=== PATIENT | male | born 1975 | race Caucasian/White ===

== ENCOUNTER → 2017-07-08 10:55 | Outpatient (CLI) | payer MEDICAID, SELFPAY ==
[2017-07-08 11:59] LABS: Hemoglobin A1c 10.4 % (4.2-6.3)
[2017-07-08 12:03] LABS: ALB/GLOB Ratio 0.8 RATIO (0.9-2.4); AST(SGOT) 30 U/L (15-37); Alanine Aminotransfer ALT/SGPT 64 U/L (16-61); Albumin, Serum 3.5 g/dL (3.2-5.0); Alkaline Phosphatase 54 U/L (45-117); Anion Gap 5 (5-15); BUN 20 mg/dL (7-18); BUN/Creat Ratio 16.1 RATIO (10-20); Calcium,Total 9.2 mg/dL (8.5-10.1); Chloride 101 mmol/L (98-107); Cholesterol 144 mg/dL (200); Creatinine, Serum 1.24 mg/dL (0.70-1.30); EST Glomerular Filtration Rate 68 mL/min (>60); Est Glom Filt Rate - Afr Amer 82 mL/min (>60); Globulin 4.2 g/dL (2.2-4.2); Glucose 210 mg/dL (74-106); High Density Lipoprotein 38 mg/dL; Potassium 4.3 mmol/L (3.5-5.1); Protein, Total 7.7 g/dL (6.4-8.2); Sodium Level 136 mmol/L (136-145); Triglycerides 130 mg/dL; Very Low Density Lipoprotein 26 mg/dL (5-40)
[2017-07-08 12:13] LABS: Microalbumin:Creatinine Ratio 83.5 mg/g CRE (<30 mg/g CRE)
== END ==
PROVIDERS: Family Provider Internal Medicine; PCP Internal Medicine; Visit Provider Nurse Practitioner
DX: E11.9 Type 2 diabetes mellitus without complications (principal); Z79.4 Long term (current) use of insulin
CPT/HCPCS: 36415; 80053; 80061; 82043; 82570; 83036

== ENCOUNTER → 2017-07-09 16:24 | Outpatient (CLI) | payer MEDICAID, SELFPAY ==
--- NOTE | 2017-07-09 16:26 | US_ITS ---
STUDY: SCROTUM ULTRASOUND REASON FOR EXAM: Male, 41 years old. Right testicle enlargement with pain for one week. TECHNIQUE: Ultrasound evaluation of the scrotum was performed with color Doppler and static nava-scale imaging. COMPARISON: None. FINDINGS: RIGHT TESTICLE INTRATESTICULAR: There is a normal size of the right testicle. The right testicle measures 4.1 x 3.1 x 2.5 cm. There is a homogenous echotexture. There is normal arterial and normal venous vascularity. There is no demonstrated right testicular mass or cyst. EXTRATESTICULAR: The epididymal tail is enlarged and hypervascular. On a single image there is a rounded focus within the epididymal tail which may be artifactual. There is no demonstrated epididymal cystic structure. There is a small hydrocele that is mildly complex. There is no demonstrated varicocele. LEFT TESTICLE INTRATESTICULAR: There is a normal size of the left testicle. The left testicle measures 4.6 x 2.8 x 2.3 cm. There is a homogenous echotexture. There is normal arterial and normal venous vascularity. There is no demonstrated left testicular mass or cyst. EXTRATESTICULAR: The epididymis is normal in size. There is normal vascularity of the epididymis. There is an epididymal cyst which measures 5 x 6 x 5 mm. There is a small hydrocele that is mildly complex. There is no demonstrated varicocele. There is no demonstrated extratesticular mass or cyst. US/Testicular with Arterial Flow IMPRESSION: Right-sided epididymitis. Recommend follow-up ultrasound in 4-6 weeks for on a single image there is a rounded focus within the tail that is likely artifactual however cannot entirely underlying mass. Bilateral mildly small complex hydroceles. Left epididymal cyst. Electronically Signed: Mariposa Lechuga MD at 19:46 EDT Tel , Service support ,
== END ==
PROVIDERS: Family Provider Internal Medicine; PCP Internal Medicine; Visit Provider Nurse Practitioner
DX: N44.00 Torsion of testis, unspecified (principal); N45.1 Epididymitis
CPT/HCPCS: 76870; 93976

== ENCOUNTER → 2017-08-12 15:54 | Outpatient (CLI) | payer OTHER, SELFPAY ==
--- NOTE | 2017-08-12 15:56 | US_ITS ---
STUDY: SCROTUM ULTRASOUND REASON FOR EXAM: Male, 41 years old. Pain TECHNIQUE: Ultrasound evaluation of the scrotum was performed with color Doppler and static nava-scale imaging. COMPARISON: None. FINDINGS: RIGHT TESTICLE INTRATESTICULAR: There is a normal size of the right testicle. The right testicle measures 4.3 x 3.1 x 2.5 cm. There is a homogenous echotexture. There is normal arterial and normal venous vascularity. There is no demonstrated right testicular mass or cyst. EXTRATESTICULAR: The epididymis is normal in size. The epididymis head measures 1.1 cm. The epididymal tail is slightly prominent with increased vascularity. There is normal vascularity of the epididymis. There is are 3 epididymal cysts measuring 4 mm. There is a small hydrocele. There is no demonstrated varicocele. There is no demonstrated extratesticular mass or cyst. LEFT TESTICLE INTRATESTICULAR: There is a normal size of the left testicle. The left testicle measures 4.5 x 3.3 x 2.3 cm. There is a homogenous echotexture. There is normal arterial and normal venous vascularity. There is no demonstrated left testicular mass or cyst. EXTRATESTICULAR: The epididymis is normal in size. The epididymis head measures 0.8 cm. There is normal vascularity of the epididymis. There is a 6 mm cyst. There is no demonstrated hydrocele. There is no demonstrated varicocele. There is no demonstrated extratesticular mass or cyst. US/Testicular with Arterial Flow IMPRESSION: Normal bilateral testicles. Bilateral epididymal cysts. Slightly prominent right epididymal tail with increased vascularity suggestive for epididymitis. Electronically Signed: Hammad Bland DO at 19:39 EDT Tel [phone], Service support ,
== END ==
PROVIDERS: Family Provider Internal Medicine; PCP Internal Medicine; Visit Provider Nurse Practitioner
DX: N44.00 Torsion of testis, unspecified (principal); N43.3 Hydrocele, unspecified; N50.9 Disorder of male genital organs, unspecified
CPT/HCPCS: 76870; 93976

== ENCOUNTER → 2018-03-08 22:11 | Outpatient (CLI) | payer OTHER, SELFPAY ==
[2018-01-07 14:55] VITALS: BMI 36.5
[2018-03-08 22:39] LABS: Absolute Lymphocyte Count 2.25 X10^3/ul (0.83-4.51); Absolute Neutrophil Count 3.8 X10^3/uL (2.0-7.7); Basophil# 0.03 X10^3/uL; Basophil% 0.4 % (0-1); Eosinophil# 0.17 X10^3/uL; Eosinophils% 2.5 % (0-5); Hematocrit 42.9 % (40-54); Hemoglobin 15.6 g/dl (13.0-16.5); Lymphocyte # 2.25 X10^3/ul (4.0); Lymphocyte % 33.5 % (19-41); Mean Corp Hgb Conc 36.4 g/gl (32-36); Mean Corpuscular Hgb 29.4 pg (27.0-32.0); Mean Corpuscular Volume 80.8 fL (80-94); Mean Platelet Vol. 10.6 fl (6.2-12.0); Monocyte# 0.49 X10^3/uL; Monocyte% 7.3 % (0-10); Neutrophil # 3.76 X10^3/uL (2.7-7.7); Neutrophil % 56.2 % (47-70); Platelet Count 244 K/mm3 (150-450); RBC Distribution Width CV 12.3 % (11.6-14.6); RBC Distribution Width SD 36.5 fl (35.1-43.9); Red Blood Count 5.31 M/mm3 (4.6-6.2); White Blood Count 6.7 K/mm3 (4.4-11.0)
[2018-03-08 22:45] LABS: POSITIVE COUNT NO; POSITIVE DIFFERENTIAL NO; POSITIVE MORPHOLOGY NO; Uric Acid 6.5 mg/dL (3.5-7.2)
== END ==
PROVIDERS: Family Provider Internal Medicine; PCP Internal Medicine; Visit Provider Nurse Practitioner
DX: M10.9 Gout, unspecified (principal)
CPT/HCPCS: 84550; 85025

== ENCOUNTER → 2018-04-05 09:36 | Outpatient (CLI) | payer OTHER, SELFPAY ==
[2018-04-05 10:43] LABS: ALB/GLOB Ratio 0.9 RATIO (0.9-2.4); AST(SGOT) 30 U/L (15-37); Alanine Aminotransfer ALT/SGPT 80 U/L (16-61); Albumin, Serum 3.7 g/dL (3.2-5.0); Alkaline Phosphatase 65 U/L (45-117); Anion Gap 6 (5-15); BUN 15 mg/dL (7-18); BUN/Creat Ratio 13.8 RATIO (10-20); Calcium,Total 9.2 mg/dL (8.5-10.1); Chloride 104 mmol/L (98-107); Creatinine, Serum 1.09 mg/dL (0.70-1.30); EST Glomerular Filtration Rate 78 mL/min (>60); Est Glom Filt Rate - Afr Amer 95 mL/min (>60); Globulin 3.9 g/dL (2.2-4.2); Glucose 232 mg/dL (74-106); Potassium 4.3 mmol/L (3.5-5.1); Protein, Total 7.6 g/dL (6.4-8.2); Sodium Level 138 mmol/L (136-145)
[2018-04-05 10:45] LABS: Hemoglobin A1c 9.8 % (4.2-6.3)
[2018-04-05 11:21] LABS: Microalbumin:Creatinine Ratio 350.8 mg/g CRE (<30 mg/g CRE)
[2018-04-07 18:24] LABS: Vitamin D 1,25-Dihydroxy 40.8 pg/mL (19.9-79.3)
--- OUTSIDE RECORDS SUMMARY | 2018-07-07 22:00 | XMS RPT_ITS ---
:1975 Author Organization OHIP Support Name Relationship Address Phone ZIYADKAREN Unavailable [address] [place] + [place] [address] GOOIN Unavailable [address] [phone] [place] [address] KAREN LACKEY Unavailable [address] + [place] [address] GOOIN Unavailable [address] [phone] [place] [address] KAREN LACKEY Unavailable [address] + [place] [address] GOOIN Unavailable [address] [phone] [place] [address] KAREN LACKEY Unavailable [address] + [place] [address] GOOIN Unavailable [address] [phone] [place] [address] KAREN LACKEY Unavailable [address] + [place] [address] GOOIN Unavailable [address] [phone] [place] [address] KAREN LACKEY Unavailable [address] + [place] [address] GOOIN Unavailable [address] [phone] [place] [address] KAREN LACKEY Unavailable [address] + [place] [address] GOOIN Unavailable [address] [phone] [place] [address] KAREN LACKEY Unavailable [address] + [place] [address] GOOIN Unavailable [address] [phone] [place] [address] KAREN LACKEY Unavailable [address] + [place] [address] GOOIN Unavailable [address] [phone] [place] [address] GOOIN Unavailable [address] [phone] [place] [address] Care Team Providers Name Role Phone Kaitlyn Gamble OIL EXTRACTOR-C Attending Unavailable Kaitlyn Gamble OIL EXTRACTOR-C Referring Unavailable [facility], [facility] Unavailable Kaitlyn Gamble OIL EXTRACTOR-C Attending Unavailable [facility], [facility] Referring Unavailable ShoKaitlyn braxton OIL EXTRACTOR-C Attending Unavailable [facility], [facility] Referring Unavailable ShoKaitlyn braxton OIL EXTRACTOR-C Attending Unavailable Kaitlyn Gamble OIL EXTRACTOR-C Referring Unavailable [facility], [facility] Care Unavailable MorseChristi OIL EXTRACTOR-C Attending Unavailable [facility] Care Unavailable MorseChristi OIL EXTRACTOR-C Attending Unavailable [facility] Primary [facility] Unavailable ShoKaitlyn braxton OIL EXTRACTOR-C Attending Unavailable Morse, Christi OIL EXTRACTOR-C Attending Unavailable [facility] Unavailable Zbigniew Monroy Unavailable Kaitlyn Gamlbe OIL EXTRACTOR-C Attending Unavailable [facility], [facility] Referring Unavailable Morse, Christi OIL EXTRACTOR-C Attending Unavailable [facility] Unavailable PROBLEMS PROBLEMS DATE TYPE CONDITION / CODE ATTENDING STATUS SOURCE 05/11/2018 Unknown I10 - Essential Almaz Morse (primary) Christi OIL EXTRACTOR-C Community hypertension / Hospital I10(ICD-10) Repository 04/07/2018 Unknown E11.8 - Type 2 Kaitlyn Gamble diabetes mellitus OIL EXTRACTOR-C Community with unspecified Hospital complications / Repository E11.8(ICD-10) 04/05/2018 Unknown E11.9 - Type 2 Kaitlyn Gamble Active [place] diabetes mellitus OIL EXTRACTOR-C Community without Hospital complications / Repository E11.9(ICD-10) 04/05/2018 Unknown Z79.4 - detention Kaitlyn Gamble (current) use of OIL EXTRACTOR-C Community insulin / Hospital Z79.4(ICD-10) Repository 04/05/2018 Unknown E56.9 - Vitamin Kaitlyn Gamble Active [place] deficiency, OIL EXTRACTOR-C Community unspecified / Hospital E56.9(ICD-10) Repository 03/08/2018 Unknown M10.9 - Gout, Lito, Active [place] unspecified / Christi OIL EXTRACTOR-C Community M10.9(ICD-10) Hospital Repository 09/16/2017 Unknown N44.00 - Torsion of Lito, Active [place] testis, unspecified Christi OIL EXTRACTOR-C Community / N44.00(ICD-10) Hospital Repository PROCEDURES PROCEDURES No Procedure Records FoundRESULTS RESULTS OFFICE VISIT Observed: 05/10/2018 Status: F Source: [place] 8:33 PM [facility] REPOSITORY After Hours [facility] [address] [place] [address] OFFICE VISIT Date of Service: 05/10/18 MR#: [id number] Acct: [id number] Name: ALEXIS LACKEY Rep #: [id number] : 1975 Provider: DEISY Morse Age/Sex: 42/M Location: [facility] Status: Signed Intake Intake Visit Reasons: BW Allergies amoxicillin [From Augmentin] Allergy (Severe, Verified 04/07/18 10:00) Unknown clavulanic acid [From Augmentin] Allergy (Severe, Verified 04/07/18 10:00) Unknown Medications fenofibrate 160 mg tablet 160 mg PO QDAY #30 tab 07/01/17 [Rx Confirmed 04/07/18] hydrochlorothiazide 25 mg tablet 25 mg PO QAM #30 tab 07/01/17 [Rx Confirmed 04/07/18] insulin regular human U-500 concentrate 500 unit/mL(3 mL) subcut pen 200 unit SC QACBREAK #12 ml 07/01/17 [Rx Confirmed 04/07/18] metformin 1,000 mg tablet 1,000 mg PO BID #60 tab 07/01/17 [Rx Confirmed 04/07/18] ramipril 10 mg capsule 10 mg PO QDAY #30 cap 07/01/17 [Rx Confirmed 04/07/18] flash glucose scanning reader See Dose Instructions .ROUTE .MEDSUPPLY #1 ea 04/07/18 [Rx Confirmed 04/07/18] flash glucose sensor kit See Dose Instructions .ROUTE .MEDSUPPLY #2 ea 04/07/18 [Rx Confirmed 04/07/18] amlodipine 5 mg tablet 5 mg PO DAILY #30 tab 05/06/18 [Rx Confirmed 05/06/18] metoprolol succinate ER 50 mg tablet,extended release 24 hr 50 mg PO QDAY #30 tab 05/06/18 [Rx Confirmed 05/06/18] PFSH Medical History Diabetes type 2, controlled (Acute) Elevated liver enzymes (Acute) Fatty liver (Acute) High cholesterol (Acute) Seasonal allergies (Acute) frozen shoulder,r arm (Acute) HTN (hypertension) (Chronic) Surgical History History of liver biopsy (Acute) Family History Mother Asthma Hypertension Other Diverticulitis Family history of high cholesterol Glaucoma Heart disease Kidney disease Renal failure Social History Smoking Status: Former smoker alcohol intake: never substance use type: does not use HPI HPI (General) HPI HPI: ALEXIS LACKEY, is a 42 M who presents to the office today for Coding Level of Care Code Off vis,est,level 3 05/10/182032 <Electronically signed by Christi GRULLON> Date Christi GRULLON CC: THYROID STIM HORMONE Collected: 05/10/2018 Status: F Source: [place] (TSH) 7:30 PM [facility] REPOSITORY TYPE CODE TESTS RESULT OUT OF RANGE REFERENCE UNITS LAB L501.9520 0.358-3.74 uIU/mL Normal TSH 2.94 Performed By: #### L501.9520 #### [facility] [place], [address] OFFICE VISIT Observed: 05/06/2018 Status: F Source: [place] 8:36 PM [facility] REPOSITORY After Hours [facility] [address] [place] [address] OFFICE VISIT Date of Service: 05/06/18 MR#: [id number] Acct: [id number] Name: ALEXIS LACKEY Alexandra Rep #: [id number] : 1975 Provider: DEISY Morse Age/Sex: 42/M Location: [facility] Status: Signed Intake Vital Signs05/06/18 Height 6 ft 5 in 05/06/18 Weight: 305 lb Intake Visit Reasons: TALK ABOUT MEDS Allergies amoxicillin [From Augmentin] Allergy (Severe, Verified 04/07/18 10:00) Unknown clavulanic acid [From Augmentin] Allergy (Severe, Verified 04/07/18 10:00) Unknown Medications fenofibrate 160 mg tablet 160 mg PO QDAY #30 tab 07/01/17 [Rx Confirmed 04/07/18] hydrochlorothiazide 25 mg tablet 25 mg PO QAM #30 tab 07/01/17 [Rx Confirmed 04/07/18] insulin regular human U-500 concentrate 500 unit/mL(3 mL) subcut pen 200 unit SC QACBREAK #12 ml 07/01/17 [Rx Confirmed 04/07/18] metformin 1,000 mg tablet 1,000 mg PO BID #60 tab 07/01/17 [Rx Confirmed 04/07/18] ramipril 10 mg capsule 10 mg PO QDAY #30 cap 07/01/17 [Rx Confirmed 04/07/18] flash glucose scanning reader See Dose Instructions .ROUTE .MEDSUPPLY #1 ea 04/07/18 [Rx Confirmed 04/07/18] flash glucose sensor kit See Dose Instructions .ROUTE .MEDSUPPLY #2 ea 04/07/18 [Rx Confirmed 04/07/18] amlodipine 5 mg tablet 5 mg PO DAILY #30 tab 05/06/18 [Rx Confirmed 05/06/18] metoprolol succinate ER 50 mg tablet,extended release 24 hr 50 mg PO QDAY #30 tab 05/06/18 [Rx Confirmed 05/06/18] PFSH Medical History Diabetes type 2, controlled (Acute) Elevated liver enzymes (Acute) Fatty liver (Acute) High cholesterol (Acute) Seasonal allergies (Acute) frozen shoulder,r arm (Acute) HTN (hypertension) (Chronic) Surgical History History of liver biopsy (Acute) Family History Mother Asthma Hypertension Other Diverticulitis Family history of high cholesterol Glaucoma Heart disease Kidney disease Renal failure Social History Smoking Status: Former smoker alcohol intake: never substance use type: does not use HPI HPI (General) HPI HPI: ALEXIS LACKEY, is a 42 M who presents to the office today for taking about his BP . Is going to have Bariatric surgery for his HTN and diabetes type 1.5 uncontrolled. I highly recommend to continue the effort to have the surgery to decrease his problems . Strong family hx of Diabetes and renal failure. Also has hx of a fatty liver and high liver enzymes. Will continue to control his HTN with medications ROS Const Constitutional: No anorexia, body ache, chills, excessive sweating, fatigue, fever(s), frequent falls, headache(s), decreased energy, malaise, night sweats, snoring, weakness, weight change, sleep problems, abnormal sleep pattern, change in appetite or other Eyes Eyes: No blurry vision, change in vision, double vision, discharge, dry eyes, bulging eyes, floaters, visual disturbances, eye pain, light sensitivity, spots in vision, tunnel vision or other ENT ENT: No headache(s), abnormal hearing, ear pain, ear discharge, ear pressure, hearing loss, tinnitus, dizziness/vertigo, balance problems, nosebleed/epistaxis, nasal congestion, nasal obstruction, nose pain, sinus pressure, sinus pain, nasal discharge, post nasal drip, facial pain, dental pain, dry mouth, difficulty swallowing, bad breath, hoarseness, lip swelling, mouth lesions, mouth pain, neck pain, sore throat, tongue swelling, throat swelling or other Resp Respiratory: No snoring, cough, change in phlegm color, chest congestion, excessive phlegm production, hemoptysis, pain on inspiration, shortness of breath, pain with cough, stridor, wheezing or other Cardio Cardiology: No excessive sweating, chest pain at rest, chest pain with exertion, leg pain with exertion, shortness of breath, dyspnea on exertion, generalized swelling, irregular heart rhythm, lightheadedness, orthopnea, radiating jaw, neck or arm pain, fast heart rate, slow heart rate, palpitations or other Gastro GI: No other, No Difficulty Swallowing, No abdominal pain, No belching, No bloating, No change in bowel habits, No change in stool character, No coffee ground emesis, No constipation, No cramping, No diarrhea, No heartburn, No feeling full early, No excessive flatus, No incontinent of stools, No Vomiting blood/hematemesis, No Blood in stool, No loose stools, No Black,tarry stools, No nausea/dyspepsia, No pain with swallowing, No vomiting, No hemorrhoids, No rectal pain Genitourinary: No urinary frequency, difficulty urinating, burning urination, painful urination, urinary urgency or blood in urine Musc Musculoskeletal: No neck pain, abnormal walking, joint pain, back pain, deformity, joint swelling, limited range of motion, loss of height, muscle cramps, muscle weakness, decreased muscle mass, body aches, numbness, radiating pain into limb, stiffness, tingling or other Skin Skin: No acne, hair loss, change in hair, nail changes, boil, change in skin color, dry skin, redness, excessive hair growth, yellowing of the skin, lesions, itching, rash, skin pain, skin ulcer, sores, skin swelling, wounds or other Breast Breast: No other Neuro Neurology: No frequent falls, headache(s), weakness, visual disturbances, abnormal hearing, abnormal walking, numbness, tingling, abnormal movements, abnormal speech, behavioral changes, confusion, unsteady gait/balance, dizziness, lack of coordination, loss of vision, memory loss, restless legs, fainting, tremor(s) or other Psych Psychiatric: No abnormal sleep pattern, No change in appetite, No behavioral changes, No confusion, No memory loss, No lack of enjoyment, No anxiety, No depression, No difficulty concentrating, No hopelessness, No irritability, No mood swings, No panic attacks, No paranoia, No Thoughts of harming yourself/Others, No hallucinations, No other Endo Endo: No excessive sweating, No fatigue, No other Aller/Imm Allergy/Immunologic: No lip swelling, tongue swelling, throat swelling, wheezing or itchy eyes Exam Const Constitutional: Yes cooperative, Yes healthy appearing Orientation: Yes alert, awake and oriented x3 Chest Chest palpation AND inspection: Yes normal inspection of the chest Resp Effort AND Inspection: No stridor Auscultation: Yes clear to auscultation bilaterally Cardio Palpitation: Yes normal PMI Rate: Yes regular rate Rhythm: Yes regular rhythm GI Inspection: Yes normal to inspection Auscultation: Yes normal bowel sounds Rectal Exam: No hemorrhoids Musc Cervical Spine: Yes cervical ROM normal Thoracic/Lumbar Spine: Yes thoracic and lumbar spine normal to inspection Skin General: no rashes or lesions noted Lesions: Yes no lesions Extrem General: Yes normal to inspection Neuro General: Yes alert and oriented x3 Motor: No weakness Psych Appearance: Positive grossly normal Mood: Positive congruent mood Affect: Positive normal affect Assessment AND Plan Problems 1. Diabetes mellitus type 2, uncontrolled, with complications E11.8; E11.65 2. Hypertension, essential I10 3. Obesity (BMI 30-39.9) E66.9 Patient Instructions Refer to surgeon for Bariatric surgery and follow up 3 weeks for the hypertension Orders Orders: Medications New: Discontinued: Coding Level of Care Code Off vis,est,level 3 Diagnoses Diabetes mellitus type 2, uncontrolled, with complications E11.8; E11.65 Hypertension, essential I10 Obesity (BMI 30-39.9) E66.9 05/06/182035 <Electronically signed by Christi GRULLON> Date Christi GRULLON CC: ENDOCRINOLOGY VISIT Observed: 04/08/2018 Status: F Source: [place] REPORT 7:40 AM [facility] [address] [place] [address] [address] [place] [address] OFFICE VISIT Date of Service: 04/07/18 MR#: [id number] Acct: [id number] Name: ALEXIS LACKEY Rep #: [id number] : 1975 Provider: Kaitlyn Gamble NP Age/Sex: 42/M Location: [facility] Status: Signed HPI History of present illness Mario Lackey is a 42 year old male who presents for follow up of diabetes type 2. Diagnosed in 2001. Currently is on U-500 insulin using 75-25-50-0 Pt denies difficulty with injections or self monitoring of BG. Denies any signs of infection or irritation at site of injections. Reports taking insulin as directed Since his last PCP visit he denies excessive thirst, increased frequency of urination, chest pain or dyspnea. Follows a diabetic diet, Is compliant with medication and is tolerating without side effects. At time of visit: -Pt denies symptoms of hypertensive emergency (CP,SOB,LAGOS, or blurred vision) and hypotension(dizziness or lightheadedness) -Pt denies symptoms of hypoglycemia ( sweaty, confusion, anxiety, tremor, hunger, palpitations) and hyperglycemia ( polydipsia, polyuria) -Pt denies potential medication adverse effect. Hypoglycemia Aware of hypoglycemia: yes Able to self treat low BG: Yes Frequent low Blood sugar: No Has supply of glucagon: No SMBG Checks 4+ times daily No data today Understands carb counting but does not use for insulin adjustment Exercise Has routine exercise Exam Const General: comfortable, well groomed Nutritional Appearance: well nourished Orientation: oriented x3 HENMT Head: normal to inspection, normocephalic Ears: hearing grossly normal bilaterally Nose: external nose normal Mouth: oral mucosae normal, moist mucous membranes Teeth and gingiva: dentition normal Eyes General: appearance normal, both eyes and all related structures Eyelids: eyelids normal Conjunctivae: conjunctivae normal Sclera: sclerae normal Pupils: PERRL Chest Chest palpation AND inspection: normal inspection of the chest Resp Effort AND Inspection: normal respiratory effort, able to speak in complete sentences, symmetric chest movement Auscultation: Bilateral: Clear to Auscultation Cardio Rate: regular rate Rhythm: regular rhythm Heart Sounds: S1 normal, S2 normal GI Inspection: normal to inspection Auscultation: normal bowel sounds Palpation: soft, no guarding Skin General: no rashes or lesions noted Wounds: no wounds Diabetic Foot Pulses: L dorsalis pedis pulse: normal, R dorsalis pedis pulse: normal Monofilament test: Left foot: normal, Right foot: normal Neuro General: moves all extremities, gait normal Cognition: normal cognition Speech: speech normal Gait: normal gait Extrem General: normal to inspection, normal capillary refill, no pedal edema Psych Appearance: well kempt Mental Status: mental status grossly normal Affect: normal affect Speech and Movement: speech and movement normal Attitude: cooperative Thought Process: normal Thought Content: normal Judgment: judgment good Type: type 2, insulin-requiring Glucose control symptoms: Reports high post-meal glucose Weight and fatigue symptoms: Denies snoring Cardiopulmonary symptoms: Denies chest pain at rest, dyspnea on exertion, lightheadedness or myalgias GI symptoms: Denies constipation, diarrhea, nausea/dyspepsia or vomiting Skin and extremity symptoms: Denies erectile dysfunction Other symptoms: Denies blurry vision or change in vision Pertinent visit history: Denies recent visit to ER, recent hospital admission or recent 911 calls Self monitoring: Yes Dietary compliance: Diabetes: good Diabetes education in past year: Yes Glucose testing: understands testing schedule Sick day education - understands ketone testing: Yes Physical activity: regular Intake Vital Signs04/07/18 Height 6 ft 5 in 04/07/18 Weight: 307 lb 2 oz 04/07/18 Body Mass Index (BMI) 36.4 04/07/18 Blood Pressure 168/104 H 04/07/18 Blood Pressure Location Rt popliteal 04/07/18 Blood Pressure Position Sitting Intake Visit Reasons: Diabetes Mellitus Type 2 Tower Technician Required: No Accompanied by: Self Allergies amoxicillin [From Augmentin] Allergy (Severe, Verified 04/07/18 10:00) Unknown clavulanic acid [From Augmentin] Allergy (Severe, Verified 04/07/18 10:00) Unknown Medications amlodipine 10 mg tablet 10 mg PO QDAY #30 tab 07/01/17 [Rx Confirmed 04/07/18] fenofibrate 160 mg tablet 160 mg PO QDAY #30 tab 07/01/17 [Rx Confirmed 04/07/18] hydrochlorothiazide 25 mg tablet 25 mg PO QAM #30 tab 07/01/17 [Rx Confirmed 04/07/18] insulin regular human U-500 concentrate 500 unit/mL(3 mL) subcut pen 200 unit SC QACBREAK #12 ml 07/01/17 [Rx Confirmed 04/07/18] metformin 1,000 mg tablet 1,000 mg PO BID #60 tab 07/01/17 [Rx Confirmed 04/07/18] ramipril 10 mg capsule 10 mg PO QDAY #30 cap 07/01/17 [Rx Confirmed 04/07/18] indomethacin 50 mg capsule 50 mg PO TID #30 cap 03/08/18 [Rx Confirmed 04/07/18] flash glucose scanning reader See Dose Instructions .ROUTE .MEDSUPPLY #1 ea 04/07/18 [Rx Confirmed 04/07/18] flash glucose sensor kit See Dose Instructions .ROUTE .MEDSUPPLY #2 ea 04/07/18 [Rx Confirmed 04/07/18] Nurse's Note: blood sugars : low : 53 high : 340 [facility] Medical History Diabetes type 2, controlled (Acute) High cholesterol (Acute) Seasonal allergies (Acute) frozen shoulder,r arm (Acute) HTN (hypertension) (Chronic) Family History Mother Asthma Hypertension Social History Smoking Status: Former smoker alcohol intake: never substance use type: does not use ROS Const Constitutional: No anorexia, body ache, chills, fatigue, fever(s), frequent falls, decreased energy, malaise, night sweats, weakness, weight change, sleep problems, abnormal sleep pattern, change in appetite, other, headache(s), snoring or excessive sweating Eyes Eyes: No blurry vision, change in vision, double vision, discharge, dry eyes, bulging eyes, floaters, visual disturbances, eye pain, light sensitivity, spots in vision, tunnel vision or other ENT ENT: No abnormal hearing, ear pain, ear discharge, ear pressure, hearing loss, tinnitus, dizziness/vertigo, balance problems, nosebleed/epistaxis, nasal congestion, nasal obstruction, nose pain, sinus pressure, sinus pain, nasal discharge, post nasal drip, headache(s), facial pain, dental pain, dry mouth, bad breath, hoarseness, lip swelling, mouth lesions, mouth pain, sore throat, tongue swelling, throat swelling, other, difficulty swallowing or neck pain Resp Respiratory: No cough, change in phlegm color, chest congestion, excessive phlegm production, hemoptysis, pain on inspiration, shortness of breath, pain with cough, snoring, stridor, wheezing or other Cardio Cardiology: No chest pain at rest, chest pain with exertion, leg pain with exertion, excessive sweating, shortness of breath, dyspnea on exertion, generalized swelling, irregular heart rhythm, lightheadedness, orthopnea, radiating jaw, neck or arm pain, fast heart rate, slow heart rate, palpitations or other Gastro GI: No abdominal pain, belching, bloating, change in bowel habits, change in stool character, coffee ground emesis, constipation, cramping, diarrhea, heartburn, difficulty swallowing, feeling full early, excessive flatus, incontinent of stools, Vomiting blood/hematemesis, blood in stool, loose stools, Black,tarry stools, nausea/dyspepsia, pain with swallowing, vomiting or other Genitourinary Male: No difficulty urinating, burning urination, painful urination, urinary incontinence, urinary frequency, urinary urgency, urinary hesitancy, urinary retention, blood in urine, Frequent nighttime urination/ nocturia, post void dribbling, suprapubic fullness, side pain, sexual problems, genital lesions, genital itching, erectile dysfunction, penile discharge, difficulty with ejaculations, blood in semen, scrotal swelling, testicle lump, testicle pain or other Musc Musculoskeletal: No abnormal walking, joint pain, back pain, deformity, joint swelling, limited range of motion, loss of height, muscle cramps, muscle weakness, decreased muscle mass, body aches, neck pain, numbness, radiating pain into limb, stiffness, tingling or other Skin Skin: No acne, hair loss, change in hair, nail changes, boil, change in skin color, dry skin, redness, excessive hair growth, yellowing of the skin, lesions, itching, rash, skin pain, skin ulcer, sores, skin swelling, wounds or other Breast Breast: No other Neuro Neurology: No frequent falls, weakness, visual disturbances, abnormal hearing, headache(s), abnormal walking, numbness or tingling Psych Psychiatric: No abnormal sleep pattern, No change in appetite Endo Endocrine: No fatigue, other or excessive sweating Aller/Imm Allergy/Immunologic: No lip swelling, tongue swelling, throat swelling, wheezing or itchy eyes Assessment AND Plan Problems 1. Diabetes mellitus type 2 with complications, uncontrolled E11.8; E11.65 2. Hyperlipidemia associated with type 2 diabetes mellitus E11.69; E78.5 3. Hypertension, essential I10 Plan A1c elevated. No data for review. Discussed with patient how to check BG consistently in order to determine which insulin dose requires increased dose. Patient verbalizes understanding. Enc to bring meter and to follow up in more frequent visits. Has questions regarding bariatric surgery. Questions answered. Lab results reviewed with patient. BP elevated today. Patient will call his PCP today for follow up. Is being managed by PCP. Currently on several medications and reports taking as directed. Renal function remains in range.Microalbumin elevated and concerns discussed with patient. Lipids in range. Patient Instructions Monitor BG carefully and consistently throughout the day. Make 2 unit incremental changes as needed. Call PCP today regarding BP. RTC in more frequent fasion to work on improved BG control. Orders Orders: Medications New: Plan Detail Additional Comments 1. Please schedule follow up in 3 months. 2. Lab work one week before appointment. 3. Discussed importance of regular exercise and recommend starting or continuing a regular exercise program for good health. 4. The patient was encouraged to lose weight for good health 5. The importance of monitoring blood sugar regularly was reviewed. 6. The importance of monitoring the HBA1c level regularly was reviewed. 7. The importance of prper foot care and regularly checking feet to prevent sores and loss of limbs was reviewed. 8. The importance of keeping BP at or below 130/80 to prevent stroke, heart attacks, kidney failure, blindness was reviewed. Spent approximately 30 minutes with patient with over 50% of time spent in discussion and counseling regarding medication adjustment, symptoms and treatment of hypoglycemia, diet adherence, and checking BG before driving. Coding Level of Care Code Off vis,est,level 4 Diagnoses Diabetes mellitus type 2 with complications, uncontrolled E11.8; E11.65 Hyperlipidemia associated with type 2 diabetes mellitus E11.69; E78.5 Hypertension, essential I10 04/08/18 0740 <Electronically signed by Kaitlyn GRULLON> Date Kaitlyn GRULLON Cosigner Signature: Date (if applicable) CC: COMPREHENSIVE METABOLIC Collected: 04/05/2018 Status: F Source: [place] 9:41 AM [facility] REPOSITORY TYPE CODE TESTS RESULT OUT OF RANGE REFERENCE UNITS LAB L501.0100 74-106 mg/dL High GLU 232 Result Comment: Glucose result greater than or equal to 200 mg/dL suggests DIABETES MELLITUS per A.D.A. criteria. Please note revised GLUCOSE reference range effective 2017. LAB L501.1000 7-18 mg/dL Normal BUN 15 LAB L501.1100 0.70-1.30 mg/dL Normal CREAT,SERUM 1.09 Result Comment: The validity of the calculated GFR AND GFRAA in patients over 70 years has not been determined. Clinical correlation is essential. LAB L501.1110 >60 mL/min Normal EST GFR 78 Result Comment: Non- GFR Calc LAB L501.1115 >60 mL/min Normal EST GFR - AA 95 Result Comment: GFR Calc LAB L501.1300 10-20 RATIO Normal BUN/CRE 13.8 LAB L501.1500 6.4-8.2 g/dL T Normal PROT 7.6 LAB L501.1800 3.2-5.0 g/dL Normal ALB 3.7 LAB L501.1950 2.2-4.2 g/dL Normal GLOB 3.9 LAB L501.2000 0.9-2.4 RATIO Normal A/G 0.9 LAB L501.2200 8.5-10.1 mg/dL CA Normal 9.2 LAB L501.4100 15-37 U/L Normal AST 30 LAB L501.4305 45-117 U/L Normal ALK P 65 LAB L501.4405 16-61 U/L High ALT 80 LAB L501.4600 0.20-1.00 mg/dL T Normal BILI 0.50 LAB L501.5300 136-145 mmol/L NA Normal 138 LAB L501.5600 3.5-5.1 mmol/L K Normal 4.3 LAB L501.5900 98-107 mmol/L CL Normal 104 LAB L501.6100 21.0-32.0 mmol/L Normal CO2 28.0 LAB L501.6200 5-15 Normal GAP 6 Performed By: #### L500.4050 #### [facility] [address] [place], [place], [address] HEMOGLOBIN A1C Collected: 04/05/2018 Status: F Source: [place] 9:41 AM [facility] REPOSITORY TYPE CODE TESTS RESULT OUT OF RANGE REFERENCE UNITS LAB L501.9985 4.2-6.3 % High HGB A1C 9.8 Performed By: #### L501.9985 #### [facility] [address] [place], [place], [address] MICROALB:CREAT Collected: 04/05/2018 Status: F Source: [place] RATIO,RANDOM UR 9:41 AM [facility] REPOSITORY TYPE CODE TESTS RESULT OUT OF RANGE REFERENCE UNITS LAB L501.1200 NO RANGE EST. mg/dL Normal UR CREAT 193.00 LAB L502.0500 NO RANGE EST. mg/L Normal 677.0 MICROALBUMIN ,UR LAB L502.0600 <30 mg/g CRE mg/g CRE High 350.8 MALB:CREAT Performed By: #### L502.0250 #### [facility] [place], [address] VITAMIN D 1,25-DIHYDROXY Collected: 04/05/2018 Status: F Source: [place] 9:41 AM [facility] REPOSITORY TYPE CODE TESTS RESULT OUT OF RANGE REFERENCE UNITS LAB L3300.0960 19.9-79.3 pg/mL Normal VITD 1,25 40.8 63271 Result Comment: Performed at: - [facility] [address] [id number] Diabetes Specialist: Martha Waterman MD, Phone: [phone] Performed By: #### L3300.0960 #### [facility] (refer to report for specific site) refer to report for address and phone number OFFICE VISIT Observed: 03/09/2018 Status: F Source: [place] 11:38 AM [facility] REPOSITORY [facility] [address] [place] [address] OFFICE VISIT Date of Service: 03/08/18 MR#: [id number] Acct: [id number] Name: ZIYADALEXIS RUSSO Alexandra Rep #: [id number] : 1975 Provider: DEISY Morse Age/Sex: 42/M Location: [facility] Status: Signed Intake Vital Signs03/08/18 Blood Pressure 140/100 H 03/08/18 Blood Pressure Location Rt popliteal 03/08/18 Blood Pressure Position Sitting 03/08/18 Respiratory Rate 18 Intake Visit Reasons: ANKLE SWELLING FOR 1 WEEK HURTS Allergies amoxicillin [From Augmentin] Allergy (Severe, Verified 01/07/18 14:54) Unknown clavulanic acid [From Augmentin] Allergy (Severe, Verified 01/07/18 14:54) Unknown Medications amlodipine 10 mg tablet 10 mg PO QDAY #30 tab 07/01/17 [Rx Confirmed 01/07/18] fenofibrate 160 mg tablet 160 mg PO QDAY #30 tab 07/01/17 [Rx Confirmed 01/07/18] hydrochlorothiazide 25 mg tablet 25 mg PO QAM #30 tab 07/01/17 [Rx Confirmed 01/07/18] insulin regular human U-500 concentrate 500 unit/mL(3 mL) subcut pen 200 unit SC QACBREAK #12 ml 07/01/17 [Rx Confirmed 01/07/18] metformin 1,000 mg tablet 1,000 mg PO BID #60 tab 07/01/17 [Rx Confirmed 01/07/18] ramipril 10 mg capsule 10 mg PO QDAY #30 cap 07/01/17 [Rx Confirmed 01/07/18] indomethacin 50 mg capsule 50 mg PO TID #30 cap 03/08/18 [Rx Confirmed 03/08/18] PFSH Medical History Diabetes type 2, controlled (Acute) High cholesterol (Acute) Seasonal allergies (Acute) frozen shoulder,r arm (Acute) HTN (hypertension) (Chronic) Family History Mother Asthma Hypertension Social History Smoking Status: Former smoker alcohol intake: never substance use type: does not use HPI HPI (General) HPI HPI: ALEXIS LACKEY, is a 42 M who presents to the office today for swelling of the L ankle for about a week. States denies trauma ,but is on his feet all day. Tried epson soaks that burned the skin. Took advil that helped with the pain somewhat .No redness noted swollen and skin is tender to touch . Worse at night for sleepng Sees endocrinology for his diabetes last A1C was 10.5 ROS Musc Musculoskeletal: Positive for joint pain (l ankle pain) Skin Skin: Positive for skin pain and skin swelling Exam Const Constitutional: Yes cooperative Orientation: Yes alert and awake Resp Effort AND Inspection: Yes normal respiratory effort Auscultation: Yes clear to auscultation bilaterally Cardio Palpitation: Yes normal PMI Rate: Yes regular rate Rhythm: Yes regular rhythm Skin General: no rashes or lesions noted Lesions: Yes no lesions Extrem General: Yes limp and other (L ankle swollen and tender to touch no redness notedno warmth to touch) Neuro General: Yes alert Assessment AND Plan Problems 1. Diabetes mellitus type 2, uncontrolled, with complications E11.8; E11.65 2. 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 Chronicity: acute Gout etiology: other secondary cause Gout site: ankle Laterality: left Acute left ankle pain M25.572 Chronicity: acute 03/09/18 1138 <Electronically signed by Christi GRULLON> Date Christi GRULLON CC: CBC W/DIFF, AUTOMATED Collected: 03/08/2018 Status: F Source: [place] 8:45 AM [facility] REPOSITORY TYPE CODE TESTS RESULT OUT OF RANGE REFERENCE UNITS LAB L100.1000 4.4-11.0 K/mm3 Normal WBC 6.7 LAB L100.1200 4.6-6.2 M/mm3 Normal RBC 5.31 LAB L100.1300 13.0-16.5 g/dl Normal HGB 15.6 LAB L100.1400 40-54 % Normal HCT 42.9 LAB L100.1500 80-94 fL Normal MCV 80.8 LAB L100.1600 27.0-32.0 pg Normal MCH 29.4 LAB L100.1700 32-36 g/gl High MCHC 36.4 LAB L100.1810 11.6-14.6 % Normal RDW CV 12.3 LAB L100.1820 35.1-43.9 fl Normal RDW SD 36.5 LAB L100.1900 150-450 K/mm3 Normal PLT 244 LAB L100.2000 6.2-12.0 fl Normal MPV 10.6 LAB L100.2100 47-70 % Normal NEUT% 56.2 LAB L100.2200 19-41 % Normal LY% 33.5 LAB L100.2300 0-10 % Normal MONO% 7.3 LAB L100.2400 0-5 % Normal EO% 2.5 LAB L100.2500 0-1 % Normal BASO% 0.4 LAB L100.2550 0.0-0.9 % Normal IM GRAN % 0.100 Result Comment: IG% - Immature Granulocytes (promyelocytes, myelocytes and metamyelocytes) > 1% indicates that a LEFT SHIFT is Present. LAB L100.2620 2.0-7.7 X10 3/uL Normal Absolute Neut 3.8 LAB L100.2720 0.83-4.51 X10 3/ul Normal Absolute Lymph 2.25 Performed By: #### L100.0100 #### [facility] [address] [place], [address] URIC ACID Collected: 03/08/2018 Status: F Source: [place] 8:45 AM [facility] REPOSITORY TYPE CODE TESTS RESULT OUT OF RANGE REFERENCE UNITS LAB L501.1400 3.5-7.2 mg/dL Normal URIC 6.5 Result Comment: The drugs N-Acetylcysteine and Metamizole may falsely depress this assay. Performed By: #### L501.1400 #### [facility] [address] [place], [address] ENDOCRINOLOGY VISIT Observed: 01/12/2018 Status: F Source: [place] REPORT 9:03 PM [facility] REPOSITORY [facility] [address] [place], [place] [address] OFFICE VISIT Date of Service: 01/07/18 MR#: [id number] Acct: [id number] Name: ALEXIS LACKEY Rep #: [id number] : 1975 Provider: Kaitlyn Gamble NP Age/Sex: 42/M Location: [facility] Status: Signed HPI History of present illness History of present illness Mario Lackey is a 41 year old male who presents for follow up of diabetes type 2. Diagnosed in 2001. Currently is on U-500 insulin using 75-25-50-0 Pt denies difficulty with injections or self monitoring of BG. Denies any signs of infection or irritation at site of injections. Reports taking insulin as directed Since his last PCP visit he denies excessive thirst, increased frequency of urination, chest pain or dyspnea. Follows a diabetic diet, Is compliant with medication and is tolerating without side effects. At time of visit: -Pt denies symptoms of hypertensive emergency (CP,SOB,LAGOS, or blurred vision) and hypotension(dizziness or lightheadedness) -Pt denies symptoms of hypoglycemia ( sweaty, confusion, anxiety, tremor, hunger, palpitations) and hyperglycemia ( polydipsia, polyuria) -Pt denies potential medication adverse effect. Hypoglycemia Aware of hypoglycemia: yes Able to self treat low BG: Yes Frequent low Blood sugar: No Has supply of glucagon: No SMBG Checks 4+ times daily No data today Understands carb counting but does not use for insulin adjustment Exercise Has routine exercise Exam Const General: comfortable, well groomed Nutritional Appearance: well nourished Orientation: oriented x3 HENMT Head: normal to inspection, normocephalic Ears: hearing grossly normal bilaterally Nose: external nose normal Mouth: oral mucosae normal, moist mucous membranes Teeth and gingiva: dentition normal Eyes General: appearance normal, both eyes and all related structures Eyelids: eyelids normal Conjunctivae: conjunctivae normal Sclera: sclerae normal Pupils: PERRL Chest Chest palpation AND inspection: normal inspection of the chest Resp Effort AND Inspection: normal respiratory effort, able to speak in complete sentences, symmetric chest movement Auscultation: Bilateral: Clear to Auscultation Cardio Rate: regular rate Rhythm: regular rhythm Heart Sounds: S1 normal, S2 normal GI Inspection: normal to inspection Auscultation: normal bowel sounds Palpation: soft, no guarding Skin General: no rashes or lesions noted Wounds: no wounds Diabetic Foot Pulses: L dorsalis pedis pulse: normal, R dorsalis pedis pulse: normal Monofilament test: Left foot: normal, Right foot: normal Neuro General: moves all extremities, gait normal Cognition: normal cognition Speech: speech normal Gait: normal gait Extrem General: normal to inspection, normal capillary refill, no pedal edema Psych Appearance: well kempt Mental Status: mental status grossly normal Affect: normal affect Speech and Movement: speech and movement normal Attitude: cooperative Thought Process: normal Thought Content: normal Judgment: judgment good Type: type 2, insulin-requiring Weight and fatigue symptoms: Reports weight gain; denies snoring Cardiopulmonary symptoms: Denies chest pain at rest, dyspnea on exertion, lightheadedness or myalgias GI symptoms: Denies constipation, diarrhea, nausea/dyspepsia or vomiting Skin and extremity symptoms: Denies erectile dysfunction Other symptoms: Denies blurry vision or change in vision Self monitoring: Yes Dietary compliance: Diabetes: good Diabetes education in past year: Yes Glucose testing: demonstrates correct use of meter, understands testing schedule Sick day education - understands ketone testing: Yes Physical activity: regular Intake Vital Signs09/20/18 Height 6 ft 5 in 01/07/18 Weight: 308 lb 2 oz 01/07/18 Body Mass Index (BMI) 36.5 01/07/18 Blood Pressure 144/80 H 01/07/18 Blood Pressure Location Lt popliteal 01/07/18 Blood Pressure Position Sitting Intake Visit Reasons: f/u Tower Technician Required: No Accompanied by: Self Is patient in pain?: No Allergies amoxicillin [From Augmentin] Allergy (Severe, Verified 01/07/18 14:54) Unknown clavulanic acid [From Augmentin] Allergy (Severe, Verified 01/07/18 14:54) Unknown Medications amlodipine 10 mg tablet 10 mg PO QDAY #30 tab 07/01/17 [Rx Confirmed 01/07/18] fenofibrate 160 mg tablet 160 mg PO QDAY #30 tab 07/01/17 [Rx Confirmed 01/07/18] hydrochlorothiazide 25 mg tablet 25 mg PO QAM #30 tab 07/01/17 [Rx Confirmed 01/07/18] insulin regular human U-500 concentrate 500 unit/mL(3 mL) subcut pen 200 unit SC QACBREAK #12 ml 07/01/17 [Rx Confirmed 01/07/18] metformin 1,000 mg tablet 1,000 mg PO BID #60 tab 07/01/17 [Rx Confirmed 01/07/18] ramipril 10 mg capsule 10 mg PO QDAY #30 cap 07/01/17 [Rx Confirmed 01/07/18] Nurse's Note: blood sugars : low : 59 high : 200 PFSH Medical History Diabetes type 2, controlled (Acute) High cholesterol (Acute) Seasonal allergies (Acute) frozen shoulder,r arm (Acute) HTN (hypertension) (Chronic) Family History Mother Asthma Hypertension Social History Smoking Status: Former smoker alcohol intake: never substance use type: does not use ROS Const Constitutional: No anorexia, body ache, chills, fatigue, fever(s), frequent falls, decreased energy, malaise, night sweats, weakness, weight change, sleep problems, abnormal sleep pattern, change in appetite, other, headache(s), snoring or excessive sweating Eyes Eyes: No blurry vision, change in vision, double vision, discharge, dry eyes, bulging eyes, floaters, visual disturbances, eye pain, light sensitivity, spots in vision, tunnel vision or other ENT ENT: Positive for nasal congestion and nasal discharge; no abnormal hearing, ear pain, ear discharge, ear pressure, hearing loss, tinnitus, dizziness/vertigo, balance problems, nosebleed/epistaxis, nasal obstruction, nose pain, sinus pressure, sinus pain, post nasal drip, headache(s), facial pain, dental pain, dry mouth, bad breath, hoarseness, lip swelling, mouth lesions, mouth pain, sore throat, tongue swelling, throat swelling, other, difficulty swallowing or neck pain Resp Respiratory: No cough, change in phlegm color, chest congestion, excessive phlegm production, hemoptysis, pain on inspiration, shortness of breath, pain with cough, snoring, stridor, wheezing or other Cardio Cardiology: No chest pain at rest, chest pain with exertion, leg pain with exertion, excessive sweating, shortness of breath, dyspnea on exertion, generalized swelling, irregular heart rhythm, lightheadedness, orthopnea, radiating jaw, neck or arm pain, fast heart rate, slow heart rate, palpitations or other Gastro GI: No abdominal pain, belching, bloating, change in bowel habits, change in stool character, coffee ground emesis, constipation, cramping, diarrhea, heartburn, difficulty swallowing, feeling full early, excessive flatus, incontinent of stools, Vomiting blood/hematemesis, blood in stool, loose stools, Black,tarry stools, nausea/dyspepsia, pain with swallowing, vomiting or other Genitourinary Male: No difficulty urinating, burning urination, painful urination, urinary incontinence, urinary frequency, urinary urgency, urinary hesitancy, urinary retention, blood in urine, Frequent nighttime urination/ nocturia, post void dribbling, suprapubic fullness, side pain, sexual problems, genital lesions, genital itching, erectile dysfunction, penile discharge, difficulty with ejaculations, blood in semen, scrotal swelling, testicle lump, testicle pain or other Musc Musculoskeletal: No abnormal walking, joint pain, back pain, deformity, joint swelling, limited range of motion, loss of height, muscle cramps, muscle weakness, decreased muscle mass, body aches, neck pain, numbness, radiating pain into limb, stiffness, tingling or other Skin Skin: No acne, hair loss, change in hair, nail changes, boil, change in skin color, dry skin, redness, excessive hair growth, yellowing of the skin, lesions, itching, rash, skin pain, skin ulcer, sores, skin swelling, wounds or other Breast Breast: No other Neuro Neurology: No frequent falls, weakness, visual disturbances, abnormal hearing, headache(s), abnormal walking, numbness or tingling Psych Psychiatric: No abnormal sleep pattern, No change in appetite Endo Endocrine: No fatigue, other or excessive sweating Aller/Imm Allergy/Immunologic: No lip swelling, tongue swelling, throat swelling, wheezing or itchy eyes Assessment AND Plan Problems 1. Type 2 diabetes mellitus without complication, with long- term current use of insulin E11.9; Z79.4 2. Hypertension, essential I10 3. Hyperlipidemia associated with type 2 diabetes mellitus E11.69; E78.5 Plan Diabetes: Feels BG readings doing better. Did not bring BG readings with him. Using U-500 insulin without incident. Has occ low but without issues treating. Occurs if does not eat usual amount of food or if activity increases but is unplanned. We discussed decreasing insulin by 5 units if pre meal BG slightly lower of if sl decrease in meal or a meal that has pattern of slightly lower post meal results. Enc annual eye exam with copy of results sent to this office Enc to avoid weight gain HTN: REcheck BP notes improvement over last visit. Reports PCP manages. On ramapril daily and reports he is taking without side effect. Hyperlipidemia: On fenofibrate but no statin. Reports he follows this with his PCP. Labs ordered for today. He is not fasting Patient Instructions May adjust his insulin by 5 unit increments. Control portions Food selections should be healthy Choose more low carb vegetables Avoid snacks and desserts. Drink water Exercise daily Eat more fresh foods, not canned or processed Eat more slowly Avoid weight gain. Attempt weight loss. Labs as ordered. Orders Orders: Plan Detail Additional Comments 1. Please schedule follow up in 3 months. 2. Lab work one week before appointment. 3. Discussed importance of regular exercise and recommend starting or continuing a regular exercise program for good health. 4. The patient was encouraged to lose weight for good health 5. The importance of monitoring blood sugar regularly was reviewed. 6. The importance of monitoring the HBA1c level regularly was reviewed. 7. The importance of prper foot care and regularly checking feet to prevent sores and loss of limbs was reviewed. 8. The importance of keeping BP at or below 130/80 to prevent stroke, heart attacks, kidney failure, blindness was reviewed. Spent approximately 30 minutes with patient with over 50% of time spent in discussion and counseling regarding medication adjustment, symptoms and treatment of hypoglycemia, diet adherence, and checking BG before driving. Coding Level of Care Code Off vis,est,level 4 Diagnoses Type 2 diabetes mellitus without complication, with long-term current use of insulin E11.9; Z79.4 Hypertension, essential I10 Hyperlipidemia associated with type 2 diabetes mellitus E11.69; E78.5 01/12/182102 <Electronically signed by Kaitlyn GRULLON> Date Kaitlyn GRULLON Cosigner Signature: Date (if applicable) CC: TESTICULAR WITH Observed: 08/12/2017 Status: F Source: [place] 3:56 PM [facility] REPOSITORY [facility] Imaging Services [address] [facility] [place] [address] Testicular with Arterial Flow MR#: [id number] Acct: [id number] Name: ALEXIS LACKEY Rep #: [id number] : 1975 M 41 From: Hammad Bland DO PCP: Ha Le MD Status: REG CLI Study: Testicular with Arterial Flow Date of Exam: 08/12/17 Exam# [id number] Ordering Dr: Christi Morse STUDY: SCROTUM ULTRASOUND REASON FOR EXAM: Male, 41 years old. Pain TECHNIQUE: Ultrasound evaluation of the scrotum was performed with color Doppler and static nava-scale imaging. COMPARISON: None. FINDINGS: RIGHT TESTICLE INTRATESTICULAR: There is a normal size of the right testicle. The right testicle measures 4.3 x 3.1 x 2.5 cm. There is a homogenous echotexture. There is normal arterial and normal venous vascularity. There is no demonstrated right testicular mass or cyst. EXTRATESTICULAR: The epididymis is normal in size. The epididymis head measures 1.1 cm. The epididymal tail is slightly prominent with increased vascularity. There is normal vascularity of the epididymis. There is are 3 epididymal cysts measuring 4 mm. There is a small hydrocele. There is no demonstrated varicocele. There is no demonstrated extratesticular mass or cyst. LEFT TESTICLE INTRATESTICULAR: There is a normal size of the left testicle. The left testicle measures 4.5 x 3.3 x 2.3 cm. There is a homogenous echotexture. There is normal arterial and normal venous vascularity. There is no demonstrated left testicular mass or cyst. EXTRATESTICULAR: The epididymis is normal in size. The epididymis head measures 0.8 cm. There is normal vascularity of the epididymis. There is a 6 mm cyst. There is no demonstrated hydrocele. There is no demonstrated varicocele. There is no demonstrated extratesticular mass or cyst. US/Testicular with Arterial Flow IMPRESSION: Normal bilateral testicles. Bilateral epididymal cysts. Slightly prominent right epididymal tail with increased vascularity suggestive for epididymitis. Electronically Signed: Hammad Bland DO at 19:39 EDT Tel [phone], Service support , CC: DEISY Morse; Ha Le MD Security Sales Manager: Signed TESTICULAR WITH Observed: 07/09/2017 Status: F Source: [place] ARTERIAL [place]OW 4:26 PM [facility] REPOSITORY [facility] Imaging Services [address] [place] [address] Testicular with Arterial Flow MR#: [id number] Acct: [id number] Name: ALEXIS LACKEY Rep #: [id number] : 1975 M 41 From: Mariposa Lechuga MD PCP: Ha Le MD Status: REG CLI Study: Testicular with Arterial Flow Date of Exam: 07/09/17 Exam# [id number] Ordering Dr: Christi Morse OIL EXTRACTOR-C STUDY: SCROTUM ULTRASOUND REASON FOR EXAM: Male, 41 years old. Right testicle enlargement with pain for one week. TECHNIQUE: Ultrasound evaluation of the scrotum was performed with color Doppler and static nava-scale imaging. COMPARISON: None. FINDINGS: RIGHT TESTICLE INTRATESTICULAR: There is a normal size of the right testicle. The right testicle measures 4.1 x 3.1 x 2.5 cm. There is a homogenous echotexture. There is normal arterial and normal venous vascularity. There is no demonstrated right testicular mass or cyst. EXTRATESTICULAR: The epididymal tail is enlarged and hypervascular. On a single image there is a rounded focus within the epididymal tail which may be artifactual. There is no demonstrated epididymal cystic structure. There is a small hydrocele that is mildly complex. There is no demonstrated varicocele. LEFT TESTICLE INTRATESTICULAR: There is a normal size of the left testicle. The left testicle measures 4.6 x 2.8 x 2.3 cm. There is a homogenous echotexture. There is normal arterial and normal venous vascularity. There is no demonstrated left testicular mass or cyst. EXTRATESTICULAR: The epididymis is normal in size. There is normal vascularity of the epididymis. There is an epididymal cyst which measures 5 x 6 x 5 mm. There is a small hydrocele that is mildly complex. There is no demonstrated varicocele. There is no demonstrated extratesticular mass or cyst. US/Testicular with Arterial Flow IMPRESSION: Right-sided epididymitis. Recommend follow-up ultrasound in 4-6 weeks for on a single image there is a rounded focus within the tail that is likely artifactual however cannot entirely underlying mass. Bilateral mildly small complex hydroceles. Left epididymal cyst. Electronically Signed: Mariposa Lechuga MD at 19:46 EDT Tel , Service support , CC: DEISY Morse; Ha Le MD Security Sales Manager: Signed HEMOGLOBIN A1C Collected: 07/08/2017 Status: F Source: [place] 10:59 AM [facility] REPOSITORY TYPE CODE TESTS RESULT OUT OF RANGE REFERENCE UNITS LAB L501.9985 4.2-6.3 % High HGB A1C 10.4 Performed By: #### L501.9985, L502.0250 #### [facility] [address] [facility]. [place], [place], [address] MICROALB:CREAT Collected: 07/08/2017 Status: F Source: [facility] UR 10:59 AM [facility] REPOSITORY TYPE CODE TESTS RESULT OUT OF RANGE REFERENCE UNITS LAB L501.1200 NO RANGE EST. mg/dL Normal UR CREAT 176.00 LAB L502.0500 NO RANGE EST. mg/L Normal 147.0 MICROALBUMIN ,UR LAB L502.0600 <30 mg/g CRE mg/g CRE High 83.5 MALB:CREAT Performed By: #### L501.9985, L502.0250 #### [facility] [address] [place], [place], [address] COMPREHENSIVE METABOLIC Collected: 07/08/2017 Status: F Source: [place] 10:59 AM [facility] REPOSITORY TYPE CODE TESTS RESULT OUT OF RANGE REFERENCE UNITS LAB L501.0100 74-106 mg/dL High GLU 210 Result Comment: Glucose result greater than or equal to 200 mg/dL suggests DIABETES MELLITUS per A.D.A. criteria. Please note revised GLUCOSE reference range effective 2017. LAB L501.1000 7-18 mg/dL High BUN 20 LAB L501.1100 0.70-1.30 mg/dL Normal CREAT,SERUM 1.24 Result Comment: The validity of the calculated GFR AND GFRAA in patients over 70 years has not been determined. Clinical correlation is essential. LAB L501.1110 >60 mL/min Normal EST GFR 68 Result Comment: Non- GFR Calc LAB L501.1115 >60 mL/min Normal EST GFR - AA 82 Result Comment: GFR Calc LAB L501.1300 10-20 RATIO Normal BUN/CRE 16.1 LAB L501.1500 6.4-8.2 g/dL T Normal PROT 7.7 LAB L501.1800 3.2-5.0 g/dL Normal ALB 3.5 LAB L501.1950 2.2-4.2 g/dL Normal GLOB 4.2 LAB L501.2000 0.9-2.4 RATIO Low A/G 0.8 LAB L501.2200 8.5-10.1 mg/dL CA Normal 9.2 LAB L501.4100 15-37 U/L Normal AST 30 LAB L501.4305 45-117 U/L Normal ALK P 54 LAB L501.4405 16-61 U/L High ALT 64 Result Comment: Please note revised ALT reference range effective 2017. LAB L501.4600 0.20-1.00 mg/dL Normal T BILI 0.50 LAB L501.5300 136-145 mmol/L Normal NA 136 LAB L501.5600 3.5-5.1 mmol/L Normal K 4.3 LAB L501.5900 98-107 mmol/L Normal CL 101 LAB L501.6100 21.0-32.0 mmol/L Normal CO2 30.0 LAB L501.6200 5-15 Normal GAP 5 Performed By: #### L500.4050, L500.4100 #### [facility] [address] [place], [place], [address] LIPID PROFILE Collected: 07/08/2017 Status: F Source: [place] 10:59 AM [facility] REPOSITORY TYPE CODE TESTS RESULT OUT OF RANGE REFERENCE UNITS LAB L501.4900 200 mg/dL Normal CHOL 144 Result Comment: <200 mg/dL Desirable 200-240 mg/dL Borderline >240 mg/dL High Risk LAB L501.5000 mg/dL Normal TRIG 130 Result Comment: The drugs N-Acetylcysteine and Metamizole may falsely depress this assay. Serum Triglycerides Reference Interval Normal <150 mg/dL Borderline high 150 - 199 mg/dL High 200 - 499 mg/dL Very High > or = 500 mg/dL LAB L501.6400 mg/dL Low HDL 38 Result Comment: The drugs N-Acetylcysteine and Metamizole may falsely depress this assay. Reference Range HDL <40 mg/dL Low HDL Cholesterol HDL >or= 60 mg/dL High HDL Cholesterol LAB L501.6500 0-130 mg/dL Normal LDL 80 LAB L501.6600 5-40 mg/dL Normal VLDL 26 Performed By: #### L500.4050, L500.4100 #### [facility] [address] [place], [address] ENDOCRINOLOGY VISIT Observed: 07/05/2017 Status: F Source: [place] REPORT 4:19 PM [facility] REPOSITORY [facility] [address] [place] [address] OFFICE VISIT Date of Service: 07/01/17 MR#: [id number] Acct: [id number] Name: Mario Lackey Rep #: [id number] : 1975 Provider: Kaitlyn Gamble NP Age/Sex: 41/M Location: [facility] Status: Signed HPI History of present illness Mario Lackey is a 41 year old male who presents for follow up of diabetes type 2. Diagnosed in 2001. Currently is on U-500 insulin using 75-25-50-0 Pt denies difficulty with injections or self monitoring of BG. Denies any signs of infection or irritation at site of injections. Reports taking insulin as directed Since his last PCP visit he denies excessive thirst, increased frequency of urination, chest pain or dyspnea. Follows a diabetic diet, Is compliant with medication and is tolerating without side effects. At time of visit: -Pt denies symptoms of hypertensive emergency (CP,SOB,LAGOS, or blurred vision) and hypotension(dizziness or lightheadedness) -Pt denies symptoms of hypoglycemia ( sweaty, confusion, anxiety, tremor, hunger, palpitations) and hyperglycemia ( polydipsia, polyuria) -Pt denies potential medication adverse effect. Hypoglycemia Aware of hypoglycemia: yes Able to self treat low BG: Yes Frequent low Blood sugar: No Has supply of glucagon: No SMBG Checks 4+ times daily No data today Understands carb counting but does not use for insulin adjustment Exercise Has routine exercise Glucose control symptoms: Reports high post-meal glucose Weight and fatigue symptoms: Denies snoring Cardiopulmonary symptoms: Denies chest pain at rest, dyspnea on exertion, lightheadedness or myalgias GI symptoms: Denies constipation, diarrhea, nausea/dyspepsia or vomiting Skin and extremity symptoms: Denies erectile dysfunction Other symptoms: Denies blurry vision or change in vision Self monitoring: Yes Diabetes education in past year: Yes Glucose testing: demonstrates correct use of meter, understands testing schedule Sick day education - understands ketone testing: Yes Physical activity: regular Exam Const General: comfortable, well groomed Nutritional Appearance: well nourished Orientation: oriented x3 [facility] Head: normal to inspection, normocephalic Ears: hearing grossly normal bilaterally Nose: external nose normal Mouth: oral mucosae normal, moist mucous membranes Teeth and gingiva: dentition normal Eyes General: appearance normal, both eyes and all related structures Eyelids: eyelids normal Conjunctivae: conjunctivae normal Sclera: sclerae normal Pupils: PERRL Chest Chest palpation AND inspection: normal inspection of the chest Resp Effort AND Inspection: normal respiratory effort, able to speak in complete sentences, symmetric chest movement Auscultation: Bilateral: Clear to Auscultation Cardio Rate: regular rate Rhythm: regular rhythm Heart Sounds: S1 normal, S2 normal GI Inspection: normal to inspection Auscultation: normal bowel sounds Palpation: soft, no guarding Skin General: no rashes or lesions noted Wounds: no wounds Diabetic Foot Pulses: L dorsalis pedis pulse: normal, R dorsalis pedis pulse: normal Monofilament test: Left foot: normal, Right foot: normal Neuro General: moves all extremities, gait normal Cognition: normal cognition Speech: speech normal Gait: normal gait Extrem General: normal to inspection, normal capillary refill, no pedal edema Psych Appearance: well kempt Mental Status: mental status grossly normal Affect: normal affect Speech and Movement: speech and movement normal Attitude: cooperative Thought Process: normal Thought Content: normal Judgment: judgment good Intake Vital Signs07/01/17 Height 6 ft 5 in 07/01/17 Weight: 288 lb 4 oz 07/01/17 Body Mass Index (BMI) 34.2 07/01/17 Blood Pressure 154/90 07/01/17 Blood Pressure Location Rt popliteal 07/01/17 Blood Pressure Position Sitting Intake Visit Reasons: diabetes type 2 Tower Technician Required: No Accompanied by: Self Is patient in pain?: No Allergies amoxicillin [From Augmentin] Allergy (Severe, Verified 07/01/17 09:22) Unknown clavulanic acid [From Augmentin] Allergy (Severe, Verified 07/01/17 09:22) Unknown Medications amlodipine 10 mg tablet 10 mg PO QDAY #30 tab 07/01/17 [Rx] fenofibrate 160 mg tablet 160 mg PO QDAY #30 tab 07/01/17 [Rx] hydrochlorothiazide 25 mg tablet 25 mg PO QAM #30 tab 07/01/17 [Rx] insulin regular human U-500 concentrate 500 unit/mL(3 mL) subcut pen 200 unit SC QACBREAK #12 ml 07/01/17 [Rx] metformin 1,000 mg tablet 1,000 mg PO BID #60 tab 07/01/17 [Rx] ramipril 10 mg capsule 10 mg PO QDAY #30 cap 07/01/17 [Rx] Nurse's Note: blood sugars : low : 49 high : 346 PFSH Medical History Diabetes type 2, controlled (Acute) High cholesterol (Acute) Seasonal allergies (Acute) frozen shoulder,r arm (Acute) HTN (hypertension) (Chronic) Family History Mother Asthma Hypertension Social History Smoking Status: Former smoker alcohol intake: never substance use type: does not use ROS Const Constitutional: No anorexia, body ache, chills, fatigue, fever(s), frequent falls, decreased energy, malaise, night sweats, weakness, weight change, sleep problems, abnormal sleep pattern, change in appetite, other, headache(s), snoring or excessive sweating Eyes Eyes: Positive for other (eye exam 06/07); no blurry vision, change in vision, double vision, discharge, dry eyes, bulging eyes, floaters, visual disturbances, eye pain, light sensitivity, spots in vision or tunnel vision ENT ENT: Positive for sinus pressure and nasal discharge; no abnormal hearing, ear pain, ear discharge, ear pressure, hearing loss, tinnitus, dizziness/vertigo, balance problems, nosebleed/epistaxis, nasal congestion, nasal obstruction, nose pain, sinus pain, post nasal drip, headache(s), facial pain, dental pain, dry mouth, bad breath, hoarseness, lip swelling, mouth lesions, mouth pain, sore throat, tongue swelling, throat swelling, other, difficulty swallowing or neck pain Resp Respiratory: No cough, change in phlegm color, chest congestion, excessive phlegm production, hemoptysis, pain on inspiration, shortness of breath, pain with cough, snoring, stridor, wheezing or other Cardio Cardiology: No chest pain at rest, chest pain with exertion, leg pain with exertion, excessive sweating, shortness of breath, dyspnea on exertion, generalized swelling, irregular heart rhythm, lightheadedness, orthopnea, radiating jaw, neck or arm pain, fast heart rate, slow heart rate, palpitations or other Gastro GI: No abdominal pain, belching, bloating, change in bowel habits, change in stool character, coffee ground emesis, constipation, cramping, diarrhea, heartburn, difficulty swallowing, feeling full early, excessive flatus, incontinent of stools, Vomiting blood/hematemesis, blood in stool, loose stools, Black,tarry stools, nausea/dyspepsia, pain with swallowing, vomiting or other Genitourinary Male: No difficulty urinating, burning urination, painful urination, urinary incontinence, urinary frequency, urinary urgency, urinary hesitancy, urinary retention, blood in urine, Frequent nighttime urination/ nocturia, post void dribbling, suprapubic fullness, side pain, sexual problems, genital lesions, genital itching, erectile dysfunction, penile discharge, difficulty with ejaculations, blood in semen, scrotal swelling, testicle lump, testicle pain or other Musc Musculoskeletal: No abnormal walking, joint pain, back pain, deformity, joint swelling, limited range of motion, loss of height, muscle cramps, muscle weakness, decreased muscle mass, body aches, neck pain, numbness, radiating pain into limb, stiffness, tingling or other Neuro Neurology: No frequent falls, weakness, visual disturbances, abnormal hearing, headache(s), abnormal walking, numbness or tingling Psych Psychiatric: No abnormal sleep pattern, No change in appetite Endo Endocrine: No fatigue, other or excessive sweating Aller/Imm Allergy/Immunologic: No lip swelling, tongue swelling, throat swelling or wheezing Assessment AND Plan Problems 1. Type 2 diabetes mellitus without complication, with long- term current use of insulin E11.9; Z79.4 2. Hypertension, essential I10 3. Hyperlipidemia associated with type 2 diabetes mellitus E11.69; E78.5 Plan Pt did not bring BG readings but states he is doing reasonably well. Occ snacks in late evening which creates higher BG reading in the morning. Reports he understands diet and insulin. Will update labs. Up date annual eye exam HTN Initial BP 154/90 Recheck 138/84 Reports taking medication as directed. Hyperlipidemia Reports being cognizant of avoiding fatty foods. Does need to up date lab. Orders Orders: Plan Detail Additional Comments 1. Please schedule follow up in 3 months. 2. Lab work one week before appointment. 3. Discussed importance of regular exercise and recommend starting or continuing a regular exercise program for good health. 4. The patient was encouraged to lose weight for good health 5. The importance of monitoring blood sugar regularly was reviewed. 6. The importance of monitoring the HBA1c level regularly was reviewed. 7. The importance of prper foot care and regularly checking feet to prevent sores and loss of limbs was reviewed. 8. The importance of keeping BP at or below 130/80 to prevent stroke, heart attacks, kidney failure, blindness was reviewed. Spent approximately 60 minutes with patient with over 50% of time spent in discussion and counseling regarding medication adjustment, symptoms and treatment of hypoglycemia, diet adherence, and checking BG before driving. Coding Level of Care Code Off vis,new,level 4 Diagnoses Type 2 diabetes mellitus without complication, with long-term current use of insulin E11.9; Z79.4 Hypertension, essential I10 Hyperlipidemia associated with type 2 diabetes mellitus E11.69; E78.5 Time Spent (min) 60 Depression Screen PHQ-2/9 PHQ-2 Over the last 2 weeks, how often have you been bothered by any of the following problems? 1. Little interest or pleasure in doing things: not at all 2. Feeling down, depressed, or hopeless: not at all Total score: 0 If score is 2 or greater, continue Source: Developed by Drs. Terry Clifton, Libby Vasquez, Asael Staton and colleagues, with an educational anthony from [employer]. Scoring: Total Score Depression Severity Action 1-4 Minimal depression No action needed 5-9 Mild depression Repeat PHQ-9 at follow up 10-14 Moderate depression Make tx plan,consider counseling, fup, prescription 07/05/17 3394 <Electronically signed by Kaitlyn GRULLON> Date Kaitlyn Gamble OIL EXTRACTOR-C Cosigner Signature: Date (if applicable) CC: ALLERGIES ALLERGIES DATE TYPE / CODE NAME / CODE REACTION SEVERITY SOURCE 04/07/2018 Drug clavulanic Unknown SV [facility] Allergy/416 acid/[id number](R [facility] 562349[facility] 04/07/2018 Drug amoxicillin/F0060 Unknown SV [facility] Allergy/416 00528(RXNORM) Community 650808([facility] ED CT) Repository ENCOUNTERS ENCOUNTERS ADMIT/DISCHARGE ACCOUNT ADMITTING ENCOUNTER LOCATION SOURCE NUMBER CLASS 05/10/2018 [id number] Ambulatory Curtis Gila 9 [facility] ing:LABSPEC Repository 04/07/2018/ [id number] Ambulatory BMSBuilding:B Curtis 8 3 [facility] Repository 04/05/2018 [id number] Ambulatory Curtis Gila 4 [facility] ing:LAB Repository 03/08/2018 [id number] Ambulatory Gila Curtis 4 [facility] ing:LABSPEC Repository 01/07/2018/ [id number] Ambulatory BMSBuilding:B Curtis 8 4 [facility] Repository 10/07/2017 [id number] Ambulatory BMSBuilding:B Curtis 2 [facility] Repository 08/12/2017 [id number] Ambulatory Curtis Curtis 4 [facility] ing:US Repository 07/09/2017 [id number] Ambulatory Curtis Curtis 4 [facility] Repository 07/08/2017 [id number] Ambulatory Gila Curtis 5 [facility] ing:LAB Repository 07/01/2017/ [id number] Ambulatory BMSBuilding:B Curtis 8 2 [facility] Repository PAYERS PAYERS ENCOUNTER GUARANTOR PAYER SUBSCRIBER SOURCE 05/10/2018 ALEXIS A Primary ALEXIS Morris Gila [id number] [facility] CARE [id number] [id number] Number: Repository [address]Wje: 330 [id number] [phone] (HP) Date:6764-26-29VV [facility] [id number], [place] [address]JF: 05/10/2018 Secondary NOT GIVENUNK Gila Insurance:SELF PAY [facility] Number: Effective Repository Date:2018-05-10 04/07/2018 ALEXIS A Primary ALEXIS Morris Gila [id number] Insurance:[facility]: [address] [id number] [place], [place] Number: Repository [address]Ilz: 330 [id number] [phone] (HP) Date:4064-92-35GI [address] [address]KO: 04/07/2018 Secondary NOT GIVENUNK Gila Insurance:SELF PAY [facility] Number: Effective Repository Date:2018-04-07 04/05/2018 ALXEIS A Primary ALEXIS Morris Gila [id number] Insurance[facility]: [place] [id number] [id number] [place], [place] Number: Repository [address]Kkr: 330 [id number] [phone] (HP) Date:3625-06-94AR [address] [address]EO: 04/05/2018 Secondary NOT GIVENUNK Curtis Insurance:SELF PAY [facility] Number: Effective Repository Date:2018-04-05 03/08/2018 ALEXIS A Primary ALEXIS Morris Curtis [id number] Insurance:[facility]OB: [address] [id number] [place] Number: Repository [address]Szw: 330 [id number] [phone] (HP) Date:8378-39-02[address]IHW[place], [place] [address]HR: 03/08/2018 Secondary NOT GIVENUNK Curtis Insurance:SELF PAY [facility] Number: Effective Repository Date:2018-03-08 01/07/2018 ALEXIS A Primary ALEXIS Morris Gila [id number] Insurance:[facility]: [facility] CARE [id number] [id number] [place] Number: Repository [address]Muv: 330 [id number] [phone] () Date:2014-63-33MJ [address]RTDOQ, [place] [address]KA: 01/07/2018 Secondary NOT GIVENUNK Curtis Insurance:SELF PAY [facility] Number: Effective Repository Date:2018-01-07 10/07/2017 ALEXIS A Primary Insurance:[facility] ALEXIS A Curtis [id number] [facility] Number: [id number] Corner, [place] [id number] Repository [address]Fyj: ([phone]) Date:9179-51-27RZ [phone] () [address] [place] [address]RK: 10/07/2017 Secondary NOT GIVENUNK Gila Insurance:SELF PAY [facility] Number: Effective Repository Date:2017-07-01 08/12/2017 ALEXIS A Primary ALEXIS A Curtis [id number] Insurance:[facility]: [facility] [address]Iadssj [id number] [place], [place] Number: Effective Repository [phone]: (330) Date:8760-78-09GC [phone] () [id number], [place] [address]MP: 08/12/2017 Secondary NOT GIVENUNK Gila Insurance:SELF PAY [facility] Number: Effective Repository Date:2017-08-11 07/09/2017 ALEXIS A Primary Insurance:[facility] ALEXIS A Gila [id number] [facility] Number: [id number] Corner, [place] [id number] Repository [address]Amq: ([phone]) Date:6078-57-88GU [phone] () [address] [place] [address]GU: 07/09/2017 Secondary NOT GIVENUNK Curtis Insurance:SELF PAY [facility] Number: Effective Repository Date:2017-07-09 07/08/2017 ALEXIS Alexandra Primary Insurance:[facility] ALEXIS A Gila [id number] [facility] Number: [id number] [id number] Repository [address]Vse: [phone]) Date:4389-40-49BH [phone] () [address] [place] [address]BX: 07/08/2017 Secondary NOT GIVENUNK Gila Insurance:SELF PAY [facility] Number: Effective Repository Date:2017-07-08 07/01/2017 Mario [id number] Primary Insurance:[facility] Don CauoliviaDOB: G[place] [facility] [id number], [place] Number: [facility] [address]Bbs: 330 [id number] Repository [phone] () Date:3123-06-64QF [address] [place] [address]LI: 07/01/2017 Secondary NOT GIVENUNK Gila Insurance:SELF PAY [facility] Number: Effective Repository Date:2017-07-01
== END ==
PROVIDERS: Family Provider Internal Medicine; PCP Internal Medicine; Referring Provider Nurse Practitioner; Visit Provider Nurse Practitioner
DX: E11.9 Type 2 diabetes mellitus without complications (principal); E56.9 Vitamin deficiency, unspecified; Z79.4 Long term (current) use of insulin
CPT/HCPCS: 36415; 80053; 82043; 82570; 82652; 83036

== ENCOUNTER → 2018-05-10 23:50 | Outpatient (CLI) | payer OTHER, SELFPAY ==
[2018-05-06 16:19] VITALS: BMI 36.1
[2018-05-11 00:50] LABS: Thyroid Stim Hormone (TSH) 2.94 uIU/mL (0.358-3.74)
--- OUTSIDE RECORDS SUMMARY | 2018-07-13 05:50 | XMS RPT_ITS ---
:1975 Author Organization OHIP Support Name Relationship Address Phone ZIYADKAREN Unavailable [address] [place] + [place] [address] GOOIN Unavailable [address] [phone] [place] [address] KAREN LACKEY Unavailable [address] + [place] [address] GOOIN Unavailable [address] [phone] [place] [address] KAREN LACKEY Unavailable [address] + [place] [address] GOOIN Unavailable [address] [phone] [place] [address] KAREN LACKEY Unavailable [address] + [place] [address] GOOIN Unavailable [address] [phone] [place] [address] KAREN LACKEY Unavailable [address] + [place] [address] GOOIN Unavailable [address] [phone] [place] [address] KAREN LACKEY Unavailable [address] + [place] [address] GOOIN Unavailable [address] [phone] [place] [address] KAREN LACKEY Unavailable [address] + [place] [address] GOOIN Unavailable [address] [phone] [place] [address] KAREN LACKEY Unavailable [address] + [place] [address] GOOIN Unavailable [address] [phone] [place] [address] KAREN LACKEY Unavailable [address] + [place] [address] GOOIN Unavailable [address] [phone] [place] [address] GOOIN Unavailable [address] [phone] [place] [address] Care Team Providers Name Role Phone Kaitlyn Gamble MACHINE TOOL OPERATOR-C Attending Unavailable Kaitlyn Gamble MACHINE TOOL OPERATOR-C Referring Unavailable [facility], [facility] Primary Care Unavailable Kaitlyn Gamble MACHINE TOOL OPERATOR-C Attending Unavailable [facility], [place] Referring Unavailable ShoKaitlyn braxton MACHINE TOOL OPERATOR-C Attending Unavailable [facility], [place] Referring Unavailable ShoKaitlyn braxton MACHINE TOOL OPERATOR-C Attending Unavailable Kaitlyn Gamble MACHINE TOOL OPERATOR-C Referring Unavailable [facility], [facility] Care Unavailable MorseChristi MACHINE TOOL OPERATOR-C Attending Unavailable [facility] Care Unavailable MorseChristi MACHINE TOOL OPERATOR-C Attending Unavailable [facility] Primary Care Unavailable ShoKaitlyn braxton MACHINE TOOL OPERATOR-C Attending Unavailable Morse, Christi MACHINE TOOL OPERATOR-C Attending Unavailable [facility] Primary Care Unavailable Zbigniew Monroy Unavailable Kaitlyn Gamble MACHINE TOOL OPERATOR-C Attending Unavailable [facility], [facility] Referring Unavailable Morse, Christi MACHINE TOOL OPERATOR-C Attending Unavailable [facility] Unavailable PROBLEMS PROBLEMS DATE TYPE CONDITION / CODE ATTENDING STATUS SOURCE 05/11/2018 Unknown I10 - Essential Almaz Morse (primary) Christi MACHINE TOOL OPERATOR-C Community hypertension / Hospital I10(ICD-10) Repository 04/07/2018 Unknown E11.8 - Type 2 Kaitlyn Gamble diabetes mellitus MACHINE TOOL OPERATOR-C Community with unspecified Hospital complications / Repository E11.8(ICD-10) 04/05/2018 Unknown E11.9 - Type 2 Kaitlyn Gamble Active [place] diabetes mellitus MACHINE TOOL OPERATOR-C Community without Hospital complications / Repository E11.9(ICD-10) 04/05/2018 Unknown Z79.4 - [facility] Kaitlyn Gamble (current) use of MACHINE TOOL OPERATOR-C Community insulin / Hospital Z79.4(ICD-10) Repository 04/05/2018 Unknown E56.9 - Vitamin Kaitlyn Gamble Active [place] deficiency, MACHINE TOOL OPERATOR-C Community unspecified / Hospital E56.9(ICD-10) Repository 03/08/2018 Unknown M10.9 - Gout, Lito, Active [facility] unspecified / Christi MACHINE TOOL OPERATOR-C Community M10.9(ICD-10) Hospital Repository 09/16/2017 Unknown N44.00 - Torsion of Lito, Active [facility] testis, unspecified Christi MACHINE TOOL OPERATOR-C Community / N44.00(ICD-10) Hospital Repository PROCEDURES PROCEDURES No Procedure Records FoundRESULTS RESULTS OFFICE VISIT Observed: 05/10/2018 Status: F Source: [place] 8:33 PM [facility] REPOSITORY After Hours [facility] [address] [place] [address] OFFICE VISIT Date of Service: 05/10/18 MR#: [id number] Acct: [id number] Name: ALEXIS LACKEY Rep #: [id number] : 1975 Provider: DEISY Morse Age/Sex: 42/M Location: [facility] Status: Signed Intake Intake Visit Reasons: BW [...] Status: F Source: [place] (TSH) 7:30 PM [facility] TYPE CODE TESTS RESULT OUT OF RANGE REFERENCE UNITS LAB L501.9520 0.358-3.74 uIU/mL Normal TSH 2.94 Performed By: #### L501.9520 #### [facility] [place], [address] OFFICE VISIT Observed: 05/06/2018 Status: F Source: [place] 8:36 PM [facility] [place] After Hours [facility] [address] [place] [address] OFFICE VISIT Date of Service: 05/06/18 MR#: [id number] Acct: [id number] Name: ALEXIS LACKEY Alexandra Rep #: [id number] : 1975 Provider: DEISY Morse Age/Sex: 42/M Location: [facility] Status: Signed Intake Vital Signs05/06/18 Height 6 [...] ENDOCRINOLOGY VISIT Observed: 04/08/2018 Status: F Source: [place] REPORT 7:40 AM [facility] [address] [place] [address] [address] [place] [address] OFFICE VISIT Date of Service: 04/07/18 MR#: [id number] Acct: [id number] Name: ALEXIS LACKEY Rep #: [id number] : 1975 Provider: Kaitlyn Gamble NP Age/Sex: 42/M [place] [facility] [place] Signed HPI History of present illness [...] Intake Visit Reasons: Diabetes Mellitus Type 2 Manager Desktop Required: No Accompanied by: Self Allergies amoxicillin [...] : low : 53 high : 340 [facility] Medical History Diabetes type 2, controlled (Acute) [...] Status: F Source: [place] 9:41 AM [facility] [place] TYPE CODE TESTS RESULT OUT OF [...] GAP 6 Performed By: #### L500.4050 #### [facility] [address] [place], [place], [address] HEMOGLOBIN A1C Collected: 04/05/2018 Status: F Source: [place] 9:41 AM [facility] [place] TYPE CODE TESTS RESULT OUT OF RANGE REFERENCE UNITS LAB L501.9985 4.2-6.3 % High HGB A1C 9.8 Performed By: #### L501.9985 #### [facility] [address] [place], [place], [address] MICROALB:CREAT Collected: 04/05/2018 Status: F Source: [place] RATIO,RANDOM UR 9:41 AM [facility] [place] TYPE CODE TESTS RESULT OUT OF RANGE REFERENCE UNITS LAB L501.1200 NO RANGE EST. mg/dL Normal UR CREAT 193.00 LAB L502.0500 NO RANGE EST. mg/L Normal 677.0 MICROALBUMIN ,UR LAB L502.0600 <30 mg/g CRE mg/g CRE High 350.8 MALB:CREAT Performed By: #### L502.0250 #### [facility] [place], [address] VITAMIN D 1,25-DIHYDROXY Collected: 04/05/2018 Status: F Source: [place] 9:41 AM [facility] [place] TYPE CODE TESTS RESULT OUT OF RANGE REFERENCE UNITS LAB L3300.0960 19.9-79.3 pg/mL Normal VITD 1,25 40.8 10609 Result Comment: Performed at: - [facility] [address] [id number] Mail Processing Associate: Martha Waterman MD, Phone: [phone] Performed By: #### L3300.0960 #### [facility] (refer to report for specific site) refer to report for address and phone number OFFICE VISIT Observed: 03/09/2018 Status: F Source: [place] 11:38 AM [facility] [place] After Hours [facility] [address] [place] [address] OFFICE VISIT Date of Service: 03/08/18 MR#: [id number] Acct: [id number] Name: ZIYADALEXIS RUSSO Alexandra Rep #: [id number] : 1975 Provider: DEISY Morse Age/Sex: 42/M Location: [facility] Status: Signed Intake Vital Signs03/08/18 Blood Pressure [...] 3 x a day follow up with Audit Manager Orders Orders: Medications New: Coding Level of [...] 03/08/2018 Status: F Source: [place] 8:45 AM [facility] [place] TYPE CODE TESTS RESULT OUT OF [...] Lymph 2.25 Performed By: #### L100.0100 #### [facility] [address] [place], [address] URIC ACID Collected: 03/08/2018 Status: F Source: [place] 8:45 AM [facility] [place] TYPE CODE TESTS RESULT OUT OF RANGE REFERENCE UNITS LAB L501.1400 3.5-7.2 mg/dL Normal URIC 6.5 Result Comment: The drugs N-Acetylcysteine and Metamizole may falsely depress this assay. Performed By: #### L501.1400 #### [facility] [address] [place], [address] ENDOCRINOLOGY VISIT Observed: 01/12/2018 Status: F Source: [place] REPORT 9:03 PM [facility] [place] [facility] [address] [place], [place] [address] OFFICE VISIT Date of Service: 01/07/18 MR#: [id number] Acct: [id number] Name: ALEXIS LACKEY Rep #: [id number] : 1975 Provider: Kaitlyn Gamble NP Age/Sex: 42/M [place] [facility] [place]: Signed HPI History of present illness [...] Pressure Position Sitting Intake Visit Reasons: f/u Manager Desktop Required: No Accompanied by: Self Is patient [...] TESTICULAR WITH Observed: 08/12/2017 Status: F Source: [place] ARTERIAL FLOW 3:56 PM [facility] Imaging Services [address] [facility] [place] [address] Testicular with Arterial Flow MR#: [id number] Acct: [id number] Name: ALEXIS LACKEY Rep #: [id number] : 1975 M 41 From: Hammad Bland DO PCP: Ha Le MD Status: REG CLI Study: Testicular with Arterial Flow Date of Exam: 08/12/17 Exam# [id number] Ordering Dr: Christi Morse STUDY: SCROTUM ULTRASOUND [...] Hammad Bland DO at 19:39 EDT Tel [phone], Service support , CC: DEISY Morse; Ha Le MD Business Banking Manager: Signed TESTICULAR WITH Observed: 07/09/2017 Status: F Source: [place] ARTERIAL FLOW 4:26 PM [facility] [place] [facility] [facility] Imaging Services [address] [place] [address] Testicular with Arterial Flow MR#: [id number] Acct: [id number] Name: ALEXIS LACKEY Rep #: [id number] : 1975 M 41 From: Mariposa Lechuga MD PCP: Ha Le MD Status: REG CLI Study: Testicular with Arterial Flow Date of Exam: 07/09/17 Exam# [id number] Ordering Dr: Christi Morse MACHINE TOOL OPERATOR-C STUDY: SCROTUM ULTRASOUND REASON FOR EXAM: Male, [...] , CC: DEISY Morse; Ha Le MD Business Banking Manager: Signed HEMOGLOBIN A1C Collected: 07/08/2017 Status: F Source: [place] 10:59 AM [facility] [place] TYPE CODE TESTS RESULT OUT OF RANGE REFERENCE UNITS LAB L501.9985 4.2-6.3 % High HGB A1C 10.4 Performed By: #### L501.9985, L502.0250 #### [facility] [address] [facility] [place], [place], [address] MICROALB:CREAT Collected: 07/08/2017 Status: F Source: [facility],[place] UR 10:59 AM [facility] [place] TYPE CODE TESTS RESULT OUT OF RANGE REFERENCE UNITS LAB L501.1200 NO RANGE EST. mg/dL Normal UR CREAT 176.00 LAB L502.0500 NO RANGE EST. mg/L Normal 147.0 MICROALBUMIN ,UR LAB L502.0600 <30 mg/g CRE mg/g CRE High 83.5 MALB:CREAT Performed By: #### L501.9985, L502.0250 #### [facility] [address] [place], [place], [address] COMPREHENSIVE METABOLIC Collected: 07/08/2017 Status: F Source: [place] PROFIL 10:59 AM [facility] [place] TYPE CODE TESTS RESULT OUT OF [...] 5 Performed By: #### L500.4050, L500.4100 #### [facility] [address] [place], [place], [address] LIPID PROFILE Collected: 07/08/2017 Status: F Source: [place] 10:59 AM [facility] [place] TYPE CODE TESTS RESULT OUT OF [...] 26 Performed By: #### L500.4050, L500.4100 #### [facility] [address] [place], [address] ENDOCRINOLOGY VISIT Observed: 07/05/2017 Status: F Source: [place] REPORT 4:19 PM [facility] [place] [facility] [address] [place] [address] OFFICE VISIT Date of Service: 07/01/17 MR#: [id number] Acct: [id number] Name: Mario Lackey Rep #: [id number] : 1975 Provider: Kaitlyn Gamble NP Age/Sex: 41/M [place] [facility] [place]: Signed HPI History of present illness [...] Nutritional Appearance: well nourished Orientation: oriented x3 [facility] Head: normal to inspection, normocephalic Ears: [...] Sitting Intake Visit Reasons: diabetes type 2 Manager Desktop Required: No Accompanied by: Self Is patient [...] and colleagues, with an educational anthony from [employer]. Scoring: Total Score Depression Severity Action 1-4 Minimal depression No action needed 5-9 Mild depression Repeat PHQ-9 at follow up 10-14 Moderate depression Make tx plan,consider counseling, fup, prescription 07/05/17 1757 <Electronically signed by Kaitlyn GRULLON> Date Kaitlyn Gamble MACHINE TOOL OPERATOR-C Cosigner Signature: Date (if applicable) CC: ALLERGIES ALLERGIES DATE TYPE / CODE NAME / CODE REACTION SEVERITY SOURCE 04/07/2018 Drug clavulanic Unknown [place] Allergy/416 acid/[id number](R Community 156196[facility] 04/07/2018 Drug amoxicillin/F0060 Unknown [place] Allergy/416 84587(RXNORM) Community 795440([facility] ED CT) Repository ENCOUNTERS ENCOUNTERS ADMIT/DISCHARGE ACCOUNT ADMITTING ENCOUNTER LOCATION SOURCE NUMBER CLASS 05/10/2018 [id number] Ambulatory [place] [facility] 9 [facility] Hospital ing:LABSPEC Repository 04/07/2018/ [id number] Ambulatory BMSBuilding:B [place] 8 3 [facility] Repository 04/05/2018 [id number] Ambulatory [place] [facility] 4 [facility] Hospital ing:LAB Repository 03/08/2018 [id number] Ambulatory [place] 4 [facility] ing:LABSPEC Repository 01/07/2018/ [id number] Ambulatory BMSBuilding:B [place] 8 4 [facility] Repository 10/07/2017 [id number] Ambulatory BMSBuilding:B [place] 2 [facility] Repository 08/12/2017 [id number] Ambulatory [place] 4 [facility] Hospital ing:US Repository 07/09/2017 [id number] Ambulatory [place] 4 [facility] ing[facility] Repository 07/08/2017 [id number] Ambulatory [place] 5 [facility] ing:LAB Repository 07/01/2017/ [id number] Ambulatory BMSBuilding:B [place] 8 2 [facility] Repository PAYERS PAYERS ENCOUNTER GUARANTOR PAYER SUBSCRIBER SOURCE 05/10/2018 ALEXIS A Primary ALEXIS Morris [facility] [id number] [facility] CARE [address]Hfmfrn [id number] Number: Repository [address]Grp: 330 [id number] [phone] (HP) Date:4828-97-63ZW [facility] [place], [place] [address]NQ: 05/10/2018 Secondary NOT GIVENUNK [place] Insurance:SELF PAY [facility] Number: Effective Repository Date:2018-05-10 04/07/2018 ALEXIS A Primary ALEXIS Morris [place] [id number] Insurance:[facility]: [address] [id number], [place] Number: Repository [id number]: 330 [id number] [phone] (HP) Date:9522-88-93KW [address] [address]EI: 04/07/2018 Secondary NOT GIVENUNK [place] Insurance:SELF PAY [facility] Number: Effective Repository Date:2018-04-07 04/05/2018 ALEXIS A Primary ALEXIS Morris [facility] [id number] Insurance:[facility]: [place] [id number] [id number], [place] Number: Repository [address]Gqh: 330 [id number] [phone] (HP) Date:6526-69-86VI [address] [address]TG: 04/05/2018 Secondary NOT GIVENUNK [place] Insurance:SELF PAY [facility] Number: Effective Repository Date:2018-04-05 03/08/2018 ALEXIS A Primary ALEXIS Morris [place] [id number] Insurance:[facility]OB: [address] [id number], [place] Number: Repository [address]Jnr: 330 [id number] [phone] (HP) Date:5813-17-03KR [address]FB[place], [place] [address]HH: 03/08/2018 Secondary NOT GIVENUNK [place] Insurance:SELF PAY [facility] Number: Effective Repository Date:2018-03-08 01/07/2018 ALEXIS A Primary ALEXIS Morris Sparkman [id number] Insurance:[facility]OB: [facility] CARE [address]Lxyeig [id number], [place] Number: Repository [address]Gvq: 330 [id number] [phone] () Date:6735-60-85PG [address]CN[place]WFO, [place] [address]QZ: 01/07/2018 Secondary NOT GIVENUNK [place] Insurance:SELF PAY [facility] Number: Effective Repository Date:2018-01-07 10/07/2017 ALEXIS A Primary Insurance:[facility] ALEXIS A [place] [id number] [facility] Number: [id number], [place] [id number] Repository [address]Ity: (330) Date:1994-17-99YD [phone] () [address] [place] [address]MU: 10/07/2017 Secondary NOT GIVENUNK [place] Insurance:SELF PAY [facility] Number: Effective Repository Date:2017-07-01 08/12/2017 ALEXIS A Primary ALEXIS A [place] [id number] Insurance:[facility]OB: [facility] [address]Jdrrjt [id number], [place] Number: Effective Repository [address]Mzm: (330) Date:3712-61-60IP [phone] () [place]ML[place], [place] [address]IG: 08/12/2017 Secondary NOT GIVENUNK [place] Insurance:SELF PAY [facility] Number: Effective Repository Date:2017-08-11 07/09/2017 ALEXIS A Primary Insurance:[facility] ALEXIS A Sparkman [id number] [facility] Number: [id number], [place] [id number] Repository [address]Zjd: (330) Date:3862-21-52JD [phone] () [address] [place] [address]PT: 07/09/2017 Secondary NOT GIVENUNK [place] Insurance:SELF PAY [facility] Number: Effective Repository Date:2017-07-09 07/08/2017 ALEXIS Alexandra Primary Insurance:[facility] ALEXIS A Sparkman [id number] [facility]: [facility] Number: [id number], [place] [id number] Repository [address]Mcn: 330) Date:3877-55-41OO [phone] () [address] [place] [address]NU: 07/08/2017 Secondary NOT GIVENUNK Spark[place] Insurance:SELF PAY [facility] Number: Effective Repository Date:2017-07-08 07/01/2017 Mario [id number] Primary Insurance:[facility] Don CauoliviaDOB: Spark[facility] [id number], [place] Number: [facility] [id number]: 330 [id number] Repository [phone] () Date:6098-21-76TA [address] [place] [address]DU: 07/01/2017 Secondary NOT GIVENUNK [place] Insurance:SELF PAY [facility] Number: Effective Repository Date:2017-07-01
== END ==
PROVIDERS: Family Provider Internal Medicine; PCP Internal Medicine; Visit Provider Nurse Practitioner
DX: I10 Essential (primary) hypertension (principal)
CPT/HCPCS: 84443

== ENCOUNTER → 2018-06-23 08:09 | Outpatient (CLI) | payer OTHER, SELFPAY ==
[2018-05-28 19:21] VITALS: BMI 37.2
--- NOTE | 2018-06-23 08:37 | US_ITS ---
STUDY: ABDOMINAL ULTRASOUND - RIGHT UPPER QUADRANT REASON FOR VISIT: Male, 42 years old. Diabetes mellitus type 2 TECHNIQUE: Ultrasound evaluation of the right upper quadrant was performed with real-time and static nava-scale imaging. TECHNICAL QUALITY: Adequate. COMPARISON: None. FINDINGS: Liver: The liver measures 16.3 cm. Echogenic liver parenchyma with diminished deep acoustic transmission suggesting the presence of hepatic steatosis. The bile ducts are within normal limits. There is hepatic color flow. The direction of portal flow is hepatopetal. There is no demonstrated mass lesion. Gallbladder: Normal distended gallbladder. The gallbladder wall measures 2.5 mm. There is a negative sonographic Jain's sign. There is no pericholecystic fluid. There are no gallstones. 4 mm gallbladder wall polyp. Common Bile Duct (C.B.D.): The common bile duct measures 2.1 mm. Pancreas: Obscured from view. Right Kidney: Normal size of the right kidney. The right kidney measures 12.1 x 6.2 x 7.3 cm. Normal renal cortex. The right cortex measures 1.9 cm. There is no demonstrated renal mass or cyst. There is no right hydronephrosis. US/Abdomen Limited IMPRESSION: Tiny gallbladder wall polyp. Otherwise unremarkable gallbladder and biliary tree. Evidence of hepatic steatosis without hepatomegaly. Electronically Signed: Pedro Liriano MD at 18:07 EST Tel , Service support ,
[2018-06-23 08:50] LABS: Absolute Lymphocyte Count 1.54 X10^3/ul (0.83-4.51); Absolute Neutrophil Count 2.9 X10^3/uL (2.0-7.7); Basophil# 0.02 X10^3/uL; Basophil% 0.4 % (0-1); Eosinophil# 0.15 X10^3/uL; Hematocrit 44.2 % (40-54); Hemoglobin 15.4 g/dl (13.0-16.5); Lymphocyte # 1.54 X10^3/ul (4.0); Lymphocyte % 31.3 % (19-41); Mean Corp Hgb Conc 34.8 g/gl (32-36); Mean Corpuscular Hgb 28.8 pg (27.0-32.0); Mean Corpuscular Volume 82.6 fL (80-94); Mean Platelet Vol. 10.2 fl (6.2-12.0); Monocyte# 0.33 X10^3/uL; Monocyte% 6.7 % (0-10); Neutrophil # 2.88 X10^3/uL (2.7-7.7); Neutrophil % 58.6 % (47-70); Platelet Count 193 K/mm3 (150-450); RBC Distribution Width CV 12.6 % (11.6-14.6); RBC Distribution Width SD 37.6 fl (35.1-43.9); Red Blood Count 5.35 M/mm3 (4.6-6.2); White Blood Count 4.9 K/mm3 (4.4-11.0)
[2018-06-23 08:54] LABS: POSITIVE COUNT NO; POSITIVE DIFFERENTIAL NO; POSITIVE MORPHOLOGY NO
[2018-06-23 09:06] LABS: Hemoglobin A1c 8.9 % (4.2-6.3)
--- NOTE | 2018-06-23 09:20 | RAD_ITS ---
STUDY: X-RAY CHEST REASON FOR EXAM: Male, 42 years old. Preoperative evaluation for bariatric surgery. TECHNIQUE: PA and lateral views of the chest. COMPARISON: None. FINDINGS: The lungs are clear and expanded. There is no demonstrated pleural abnormality. Normal size heart. Normal mediastinum and alva. Normal visualized pulmonary arteries. Normal visualized aortic arch and descending thoracic aorta. There are degenerative changes of the visualized thoracic spine. Normal visualized ribs, clavicles, and shoulders. There is no demonstrated abnormality of the visualized soft tissue structures of the upper abdomen. RAD/Chest PA and Lateral IMPRESSION: Normal x-ray examination of the chest. Electronically Signed: Jorge Arriola, at 13:24 EST , Service support ,
[2018-06-23 09:23] LABS: ALB/GLOB Ratio 1.1 RATIO (0.9-2.4); AST(SGOT) 33 U/L (15-37); Alanine Aminotransfer ALT/SGPT 77 U/L (16-61); Albumin, Serum 3.9 g/dL (3.2-5.0); Alkaline Phosphatase 49 U/L (45-117); Anion Gap 9 (5-15); BUN 20 mg/dL (7-18); BUN/Creat Ratio 15.9 RATIO (10-20); Chloride 104 mmol/L (98-107); Creatinine, Serum 1.26 mg/dL (0.70-1.30); EST Glomerular Filtration Rate 66 mL/min (>60); Est Glom Filt Rate - Afr Amer 80 mL/min (>60); Ferritin 213 ng/mL (26-388); Globulin 3.7 g/dL (2.2-4.2); Glucose 189 mg/dL (74-106); Iron 94 ug/dL (65-175); Iron Binding Capacity,Total 361 ug/dL (250-450); Protein, Total 7.6 g/dL (6.4-8.2); Sodium Level 139 mmol/L (136-145)
--- NOTE | 2018-06-23 09:26 | EKG12_ITS ---
Test Reason : ROUTINE Blood Pressure : / mmHG Vent. Rate : 058 BPM Atrial Rate : 057 BPM P-R Int : 202 ms QRS Dur : 110 ms QT Int : 372 ms P-R-T Axes : 057 000 038 degrees QTc Int : 365 ms Normal sinus rhythm Nonspecific T wave abnormality Abnormal ECG Confirmed by SHELDON JONES ([id number]), graphics editor ADALBERTO LOCKHART ([id number]) on 06/25/2018 1:09:15 PM Referred By: SIGRID GARCIA Confirmed By:SHELDON JONES
[2018-06-23 09:27] LABS: Vitamin B12 699 pg/mL (211-911); Vitamin D,25 Hydroxy 6.4 ng/mL (29.95-100.01)
[2018-06-26 20:06] LABS: Testosterone, % Free 2.73 % (1.50-4.20); Testosterone, Free 7.29 ng/dL (5.00-21.00)
[2018-06-28 09:08] LABS: Testosterone, Total 267 ng/dL (264-916); Vitamin B1, Thiamine 128.4 nmol/L (66.5-200.0)
== END ==
PROVIDERS: Family Provider Nurse Practitioner; PCP Nurse Practitioner
DX: E11.65 Type 2 diabetes mellitus with hyperglycemia (principal); E66.01 Morbid (severe) obesity due to excess calories; Z68.37 Body mass index [BMI] 37.0-37.9, adult
CPT/HCPCS: 36415; 71046; 76705; 80053; 82306; 82607; 82728; 82746; 83036; 83540; 83550; 84402; 84403; 84425; 85025; 93005

== ENCOUNTER → 2018-06-28 20:01 | Outpatient (CLI) | payer OTHER, SELFPAY ==
[2018-05-28 19:21] VITALS: BMI 37.2
== END ==
PROVIDERS: Family Provider Nurse Practitioner; PCP Nurse Practitioner
DX: G47.9 Sleep disorder, unspecified (principal); I10 Essential (primary) hypertension; E66.01 Morbid (severe) obesity due to excess calories; Z68.37 Body mass index [BMI] 37.0-37.9, adult; E11.65 Type 2 diabetes mellitus with hyperglycemia
CPT/HCPCS: 95810

== ENCOUNTER 2018-09-10 07:56 | Emergency (ER) | payer OTHER, SELFPAY ==
[2018-05-28 19:21] VITALS: BMI 37.2
[2018-09-10 07:57] VITALS: BP 162/92; PULSE 88; RESP 16; TEMP 36.3; O2SAT 99; BMI 34.9
--- NOTE | 2018-09-10 08:12 | ED.DCSUM_ITS ---
- ER Visit Summary Date of Service: 09/10/18 Chief Complaint: Left foot pain History of Present Illness: The patient is a 42 M presents to the emergency department with pain in his left foot. The patient was in his normal state of health. He states 3 days ago, he was at work and was walking. He felt like something popped the base of his foot. He states he began to have some swelling and bruising. He states today, he noted some redness. He denies any definitive trauma aside from walking. He does have a history of gout but states this feels different. He is been compliant with his medications. He denies leg swelling. He denies chest pain or shortness of breath. Physical Examination: Exam is relatively unremarkable. Patient does have some mild erythema on the dorsum of the lateral aspect of the left foot. There is bruising in the plantar fascia. His pulses are normal. There is no streaking. Sensation is preserved. Test Results: [] Emergency Department Course and Treatment: X-rays were obtained of the foot. The patient does have a midshaft fracture of the fifth metatarsal. I did review the films with Dr. storey. This is distal to the Cadet area. The patient is placed in a boot orthosis and is weightbearing as tolerated. He will be given a short course of analgesics and will follow-up with Dr. storey for reevaluation. He is comfortable with this plan of care. Treatment Plan: [] Disposition: Discharge Impression: 1. Closed left midshaft fifth metatarsal fracture This note was generated with [employer] dictation software. It may contain incorrect words, spelling, and punctuation that were not noted in review of the chart prior to signing ED Disposition - Plan for ED Patient: Instructions: ED Fx Foot Prescriptions: traMADol [Ultram] 50 mg PO Q4H PRN PRN 3 Days #12 tab PRN Reason: Pain Referrals: Christi Morse NP-C [Primary Care Provider] - Zbigniew Hooper DPM [STAFF PHYSICIAN] - As soon as possible
--- NOTE | 2018-09-10 08:23 | RAD_ITS ---
STUDY: X-RAY - LEFT FOOT CLINICAL: Male, 42 years old. Redness, swelling and bruising following injury. TECHNIQUE: 3 view(s) of the foot. COMPARISON: None. FINDINGS: There is an enthesophyte involving the posterior superior calcaneus at the site of insertion of the Achilles tendon. Normal visualized subtalar, talonavicular, calcaneocuboid, tarsal and tarsometatarsal articulations. There is a nondisplaced transverse fracture through the proximal shaft of the fifth metatarsal. Normal metatarsophalangeal joint of the great toe. Normal tibial and fibular sesamoid bones. Normal interphalangeal joint of the great toe. Normal phalanges of the great toe. Normal second through fifth metatarsophalangeal joints. Normal interphalangeal joints and phalanges of the lesser toes. Soft tissue swelling. RAD/Foot min 3 Views IMPRESSION: Nondisplaced transverse fracture through the proximal shaft of the fifth metatarsal with overlying soft tissue swelling. Electronically Signed: Jorge Arriola, at 8:40 EDT , Service support ,
== END 2018-09-10 09:04 | disposition home or self-care (01) ==
PROVIDERS: Emergency Provider Emergency Medicine; Family Provider Nurse Practitioner; PCP Nurse Practitioner
DX: S92.355A Nondisplaced fracture of fifth metatarsal bone, left foot, initial encounter for closed fracture (principal); X58.XXXA Exposure to other specified factors, initial encounter; Y93.01 Activity, walking, marching and hiking; Y92.89 Other specified places as the place of occurrence of the external cause; Y99.0 Civilian activity done for income or pay; M10.9 Gout, unspecified; I10 Essential (primary) hypertension; E78.00 Pure hypercholesterolemia, unspecified; E11.9 Type 2 diabetes mellitus without complications; Z87.891 Personal history of nicotine dependence
CPT/HCPCS: 73630; 99283

== ENCOUNTER → 2018-09-17 09:17 | Outpatient (CLI) | payer OTHER, SELFPAY ==
[2018-09-10 07:57] VITALS: BMI 34.9
--- NOTE | 2018-09-17 09:20 | RAD_ITS ---
STUDY: X-RAY - LEFT FOOT CLINICAL: Male, 42 years old. Fracture TECHNIQUE: 3 view(s) of the foot. COMPARISON: September 10, 2018 FINDINGS: Small heel spurs. Normal visualized subtalar, talonavicular, calcaneocuboid, tarsal and tarsometatarsal articulations. Stable mildly angulated fracture of the proximal shaft of the fifth metatarsal. Normal metatarsophalangeal joint of the great toe. Normal tibial and fibular sesamoid bones. Normal interphalangeal joint of the great toe. Normal phalanges of the great toe. Normal second through fifth metatarsophalangeal joints. Normal interphalangeal joints and phalanges of the lesser toes. There is lateral soft tissue swelling. RAD/Foot min 3 Views IMPRESSION: Stable fracture of the fifth metatarsal. Electronically Signed: Wallace Rai MD at 9:52 EDT , Service support ,
== END ==
PROVIDERS: Family Provider Nurse Practitioner; PCP Nurse Practitioner; Referring Provider Podiatrist; Visit Provider Podiatrist
DX: S92.352A Displaced fracture of fifth metatarsal bone, left foot, initial encounter for closed fracture (principal); M77.32 Calcaneal spur, left foot
CPT/HCPCS: 73630

== ENCOUNTER → 2018-10-13 09:08 | Outpatient (CLI) | payer OTHER, SELFPAY ==
--- NOTE | 2018-10-13 09:24 | RAD_ITS ---
STUDY: X-RAY - LEFT ANKLE REASON FOR EXAM: Male, 42 years old. Fracture follow-up TECHNIQUE: 3 view(s) of the ankle. COMPARISON: None. FINDINGS: There is a small osseous density adjacent to the medial malleolus suggesting an old fracture. No associated soft tissue swelling. Normal medial and lateral malleoli. Normal tibiotalar articulation and ankle mortise. Calcaneal enthesophyte is demonstrated. The visualized subtalar, talonavicular, calcaneocuboid and tarsal articulations are normal. There are atherosclerotic calcifications. RAD/Ankle min 3 Views IMPRESSION: 1. No acute fracture. 2. Old medial ankle avulsion fragment. Electronically Signed: Ravi Green MD at 12:07 EDT , Service support ,
--- NOTE | 2018-10-13 09:24 | RAD_ITS ---
STUDY: X-RAY - LEFT FOOT CLINICAL: Male, 42 years old. Fifth metatarsal fracture follow-up TECHNIQUE: 3 view(s) of the foot. COMPARISON: 09/17/2018 FINDINGS: Normal talus, calcaneus, and tarsal bones. Normal visualized subtalar, talonavicular, calcaneocuboid, tarsal and tarsometatarsal articulations. Obliquely oriented fracture of the fifth metatarsal is again identified with interval development of early callus along the medial and lateral borders of the fracture. Stable alignment with approximately 4 mm of cortical step-off. Normal metatarsophalangeal joint of the great toe. Normal tibial and fibular sesamoid bones. Normal interphalangeal joint of the great toe. Normal phalanges of the great toe. Normal second through fifth metatarsophalangeal joints. Normal interphalangeal joints and phalanges of the lesser toes. There continues to be soft tissue swelling of the lateral foot. RAD/Foot min 3 Views IMPRESSION: Early callus formation but unhealed fifth metatarsal fracture. Electronically Signed: Ravi Green MD at 12:09 EDT , Service support ,
[2018-10-13 10:17] LABS: Hemoglobin A1c 8.2 % (4.2-6.3)
[2018-10-13 10:18] LABS: Microalbumin,Random Urine 66.7 mg/L (NO RANGE EST.); Microalbumin:Creatinine Ratio 62.3 mg/g CRE (<30 mg/g CRE)
[2018-10-13 10:19] LABS: AST(SGOT) 30 U/L (15-37); Alanine Aminotransfer ALT/SGPT 69 U/L (16-61); Albumin, Serum 3.8 g/dL (3.2-5.0); Alkaline Phosphatase 48 U/L (45-117); Anion Gap 8 (5-15); BUN 20 mg/dL (7-18); BUN/Creat Ratio 14.8 RATIO (10-20); Calcium,Total 9.1 mg/dL (8.5-10.1); Chloride 103 mmol/L (98-107); Cholesterol 140 mg/dL (200); Creatinine, Serum 1.35 mg/dL (0.70-1.30); EST Glomerular Filtration Rate 61 mL/min (>60); Est Glom Filt Rate - Afr Amer 74 mL/min (>60); Globulin 3.7 g/dL (2.2-4.2); Glucose 184 mg/dL (74-106); High Density Lipoprotein 48 mg/dL; Potassium 4.2 mmol/L (3.5-5.1); Protein, Total 7.5 g/dL (6.4-8.2); Sodium Level 139 mmol/L (136-145); Triglycerides 131 mg/dL; Very Low Density Lipoprotein 26 mg/dL (5-40)
== END ==
LOC: LAB 09:14 → RAD 09:23
PROVIDERS: Family Provider Family Medicine; PCP Family Medicine; Referring Provider Podiatrist; Visit Provider Podiatrist
DX: E11.65 Type 2 diabetes mellitus with hyperglycemia (principal); Z79.4 Long term (current) use of insulin; S92.352A Displaced fracture of fifth metatarsal bone, left foot, initial encounter for closed fracture
CPT/HCPCS: 36415; 73610; 73630; 80053; 80061; 82043; 82570; 83036

== ENCOUNTER → 2018-11-01 09:32 | Outpatient (CLI) | payer OTHER, SELFPAY ==
--- NOTE | 2018-11-01 10:00 | RAD_ITS ---
STUDY: X-RAY - LEFT FOOT CLINICAL: Male, 42 years old. Follow-up fracture TECHNIQUE: 3 view(s) of the foot. COMPARISON: 10/16/2018 FINDINGS: Normal talus, calcaneus, and tarsal bones. Small plantar and posterior calcaneal enthesophytes. Normal visualized subtalar, talonavicular, calcaneocuboid, tarsal and tarsometatarsal articulations. Healing nondisplaced oblique fracture the proximal shaft of the fifth metatarsal bone with callus formation. Normal metatarsophalangeal joint of the great toe. Normal tibial and fibular sesamoid bones. Normal interphalangeal joint of the great toe. Normal phalanges of the great toe. Normal second through fifth metatarsophalangeal joints. Normal interphalangeal joints and phalanges of the lesser toes. The soft tissue structures are unremarkable. RAD/Foot min 3 Views IMPRESSION: Healing nondisplaced oblique fracture the proximal shaft of the fifth metatarsal bone. Electronically Signed: Pedro Gonzalez MD at 10:37 EDT Tel , Service support ,
== END ==
PROVIDERS: Family Provider Family Medicine; PCP Family Medicine; Referring Provider Podiatrist; Visit Provider Podiatrist
DX: S92.355D Nondisplaced fracture of fifth metatarsal bone, left foot, subsequent encounter for fracture with routine healing (principal); X58.XXXD Exposure to other specified factors, subsequent encounter
CPT/HCPCS: 73630

== ENCOUNTER → 2018-11-22 18:38 | Outpatient (CLI) | payer OTHER, SELFPAY ==
--- NOTE | 2018-11-22 18:42 | RAD_ITS ---
STUDY: X-RAY - LEFT FOOT CLINICAL: Male, 42 years old. Healing fifth metatarsal fracture. Follow-up. TECHNIQUE: 3 view(s) of the foot. COMPARISON: Left foot, November 01, 2018. FINDINGS: There are enthesophytes at the insertions of the Achilles tendon and plantar aponeurosis upon an otherwise normal calcaneus. Normal talus and tarsal bones Normal visualized subtalar, talonavicular, calcaneocuboid, tarsal and tarsometatarsal articulations. Normal first through fourth metatarsi. Evidence of healing fracture of the fifth metacarpal tarsal. There is no change in alignment. No major interval change in the appearance of the fracture. Normal metatarsophalangeal joint of the great toe. Normal tibial and fibular sesamoid bones. Normal interphalangeal joint of the great toe. Normal phalanges of the great toe. Normal second through fifth metatarsophalangeal joints. Normal interphalangeal joints and phalanges of the lesser toes. The soft tissue structures are unremarkable. RAD/Foot min 3 Views IMPRESSION: Healing fracture of the fifth metatarsal. This appears unchanged from the prior study. Electronically Signed: Fuentes Bray DO at 20:27 EDT Tel [phone], Service support ,
== END ==
PROVIDERS: Family Provider Family Medicine; PCP Family Medicine; Referring Provider Podiatrist; Visit Provider Podiatrist
DX: S92.352A Displaced fracture of fifth metatarsal bone, left foot, initial encounter for closed fracture (principal)
CPT/HCPCS: 73630

== ENCOUNTER → 2018-12-01 14:03 | Outpatient (CLI) | payer OTHER, SELFPAY ==
[2018-05-28 19:21] VITALS: BMI 37.2
== END ==
PROVIDERS: Family Provider Family Medicine; PCP Family Medicine
DX: G47.33 Obstructive sleep apnea (adult) (pediatric) (principal)
CPT/HCPCS: 95811

== ENCOUNTER → 2018-12-11 16:05 | Outpatient (CLI) | payer OTHER, SELFPAY ==
[2018-12-11 11:42] VITALS: BMI 35.2
== END ==
PROVIDERS: Family Provider Family Medicine; PCP Family Medicine; Visit Provider Nurse Practitioner
DX: E11.621 Type 2 diabetes mellitus with foot ulcer (principal); L97.509 Non-pressure chronic ulcer of other part of unspecified foot with unspecified severity
CPT/HCPCS: 87070; 87075; 87077; 87186; 87205

== ENCOUNTER 2018-12-14 08:18 | Outpatient (RCR) | payer OTHER, SELFPAY ==
[2018-12-14 07:49] VITALS: BMI 35.2
[2018-12-14 08:35] VITALS: BP 168/107; PULSE 68; RESP 18; TEMP 36.7; BMI 35.2
--- NOTE | 2018-12-14 09:53 | HP.PCM_ITS ---
(1) Diabetic toe ulcer Status: Chronic Current Visit: Yes Qualifiers: Diabetes mellitus type: type 2 Laterality: left Non-pressure ulcer stage: with fat layer exposed Qualified Code(s): E11.621 - Type 2 diabetes mellitus with foot ulcer; L97.522 - Non-pressure chronic ulcer of other part of left foot with fat layer exposed Code(s): E11.621 - Type 2 diabetes mellitus with foot ulcer; L97.509 - Non- pressure chronic ulcer of other part of unspecified foot with unspecified severity (2) Diabetic neuropathy Status: Chronic Current Visit: Yes Qualifiers: Diabetes mellitus type: type 2 Code(s): E11.40 - Type 2 diabetes mellitus with diabetic neuropathy, unspecified (3) Diabetic neuropathy associated with diabetes mellitus due to underlying condition Status: Chronic Current Visit: Yes Code(s): E08.40 - Diabetes mellitus due to underlying condition with diabetic neuropathy, unspecified (4) Bariatric surgery status Status: Chronic Current Visit: No Code(s): Z98.84 - Bariatric surgery status (5) Obesity (BMI 30-39.9) Status: Chronic Current Visit: No Code(s): E66.9 - Obesity, unspecified (6) Diabetes mellitus type 2, uncontrolled, with complications Status: Chronic Current Visit: Yes Code(s): E11.8 - Type 2 diabetes mellitus with unspecified complications; E11.65 - Type 2 diabetes mellitus with hyperglycemia (7) Gout Status: Chronic Current Visit: No Qualifiers: Code(s): M10.9 - Gout, unspecified (8) Hyperlipidemia associated with type 2 diabetes mellitus Status: Chronic Current Visit: No Code(s): E11.69 - Type 2 diabetes mellitus with other specified complication; E78.5 - Hyperlipidemia, unspecified (9) Hypertension, essential Status: Chronic Current Visit: No Code(s): I10 - Essential (primary) hypertension History of Present Illness Date of Service: 12/14/18 Chief Complaint: Left great toe ulceration History of Wound: This is a 43-year-old male who presents with an ulceration of his left great toe. The ulceration began as a blister, which was noted initially approximately 10 days ago. He was evaluated by his primary caregiver, who obtained cultures, which were positive for Staphylococcus aureus. The patient was subsequently placed on Bactrim and Flagyl orally, which continue until the current time. The patient is also known to have fractured his left fifth metatarsal in August 2018. He also has fractured his ankle in January 2018, which was undiagnosed until recently. Patient is diabetic, and blood sugars are said to run between 90 and 160 on a daily basis. Patient claims to have recently undergone diabetic counseling with a sample collector. There has also been consideration of bariatric consultation in the recent past. He is known to suffer from diabetic peripheral neuropathy. The patient has recently been wearing a postoperative shoe for offloading purposes. Past Medical History Past Medical History: Chronic Problems (Last Reviewed 12/11/18 @ 10:12 by Tiffany Victoria) Diabetic toe ulcer (Chronic) Diabetic neuropathy (Chronic) Diabetic neuropathy associated with diabetes mellitus due to underlying condition (Chronic) Bariatric surgery status (Chronic) Obesity (BMI 30-39.9) (Chronic) Diabetes mellitus type 2, uncontrolled, with complications (Chronic) Gout (Chronic) Hyperlipidemia associated with type 2 diabetes mellitus (Chronic) Hypertension, essential (Chronic) Type 2 diabetes mellitus without complication, with long-term current use of insulin (Chronic) Past Medical History: Patient's history is negative for myocardial infarction, congestive heart failure, cerebrovascular accident, cancer, pulmonary disease, renal disease, and thyroid disease. He has a history of diabetes mellitus, hypertension, and hyperlipidemia. He also suffers from obesity. Surgical History: no surgical history Allergies/Adverse Reactions: Allergies amoxicillin [From Augmentin] Allergy (Severe, Verified 09/10/18 08:01) Unknown clavulanic acid [From Augmentin] Allergy (Severe, Verified 09/10/18 08:01) Unknown Home Medications: Ambulatory Orders Medication Instructions Recorded flash glucose scanning reader See Dose Instructions .ROUTE 04/07/18 .MEDSUPPLY #1 ea flash glucose sensor kit See Dose Instructions .ROUTE 04/07/18 .MEDSUPPLY #2 ea insulin regular human U-500 See Rx Instructions SC QACBREAK 05/19/18 concentrate 500 unit/mL(3 mL) #24 ml subcut pen amlodipine 5 mg tablet 5 mg PO DAILY #30 tab 05/28/18 fenofibrate 160 mg tablet 160 mg PO QDAY #30 tab 05/28/18 hydrochlorothiazide 25 mg tablet 25 mg PO QAM #30 tab 05/28/18 metformin 1,000 mg tablet 1,000 mg PO BID #60 tab 05/28/18 metoprolol succinate ER 50 mg 50 mg PO QDAY #30 tab 05/28/18 tablet,extended release 24 hr ramipril 10 mg capsule 10 mg PO QDAY #30 cap 05/28/18 metronidazole 250 mg tablet 250 mg PO TID 10 Days #30 tab 12/11/18 sulfamethoxazole 800 1 tab PO BID 10 Days #20 tab 12/11/18 mg-trimethoprim 160 mg tablet - Family History Paternal Family History: Family History (Last Reviewed 12/11/18 @ 10:12 by Tiffany Victoria) Mother Asthma Hypertension Other Diverticulitis Family history of high cholesterol Glaucoma Heart disease Kidney disease Renal failure - - Patient's father is 63 years of age and has a history of hyperlipidemia. The patient's mother 63 years of age with a history of hypertension. 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 He denies use of alcohol and tobacco products. He is . Lives: Spouse/ Significant Other Smoking Status: Former smoker Tobacco Use: Non-smoker Alcohol: None Drugs: None Review of Systems Constitutional: Denies: Chills, Fever, Weight Change Eyes: Denies: Pain, Vision Change HEENT: Denies: Difficulty Hearing, Difficulty Swallowing, Sinus Congestion Cardiovascular: Denies: Chest Pain, Palpitations Respiratory: Denies: Cough, Shortness of Breath Gastrointestinal: Denies: Diarrhea, Nausea, Vomiting Genitourinary: Denies: Dysuria, Hematuria Endocrine: Denies: Heat/ Cold Intolerance, Polydipsia, Polyuria Hematologic/ Lymphatic: Denies: Easy Bruising, Easy Bleeding - Physical Exam Vital Signs Temp Pulse Resp BP 98.0 F 68 18 168/107 H 12/14/18 08:35 12/14/18 08:35 12/14/18 08:35 12/14/18 08:35 General: Alert, Oriented x3, Cooperative, No apparent distress, Well developed, Well nourished, - - Patient is obese HEENT: Atraumatic, PERRLA, EOMI, Normocephalic Oral: Moist Mucosa Neck: Supple, No JVD, Negative Carotid Bruits, Negative Hepatojugular Reflux, No Nodes, No Nuchal Rigidity, Trachea Midline Lungs: Clear to auscultation, Normal air movement, No rhonchi, No wheeze, No rales Cardiovascular: Regular rate, Regular Rhythm, Normal S1, Normal S2, No murmurs Abdomen: Soft, Non Tender, Non-Distended, Obese Extremities: No clubbing, No cyanosis, No edema, No Calf Tenderness, - - Ulceration is noted on the dorsal-medial aspect of the left great toe. Dimensions are documented elsewhere. There is callus surrounding the ulceration. There is no sign of infection or cellulitis. Centrally, there is nonviable tissue and bioburden. The ulceration is located on a protuberant area of the patient's left great toe. There is good growth of hair on the patient's lower extremities. Skin: No rashes Wound Measurements and Assessment WC - Nurse 1 - General Ulcer Measurement Start: 12/14/18 08:34 Freq: Status: Active Protocol: Activity Type Activity Date Activity User E-Sign Co-Sign Detail Recorded Client Recorded Date Recorded By Document 12/14/18 08:35 [email or web address] [id number] 12/14/18 09:03 [email or web address] 12/14/18 08:35 Wound Center Nurse 1 [Ulcer Assessment] 1-left great toe dorsal -Combined with other wound No -Current Size (cm) - Length 0.9 -Current Size (cm) - Width 1.0 -Current Size (cm) - Depth 0.1 -Total Square Cm 0.90 -Photo Taken Yes -Epithelialization None Present -Tunneling No -Undermining/Tunneling No -Circular Undermining No -Exudate Amt Small -Exudate Type Serosanguineous -Wound Margin Flat & Intact -Granulation Amt Small (1-33%) -Granulation Quality [place] -Slough/Fibrin Yes -Necrosis Amt Large (67-100%) -Necrotic Tissue Type Adherent Slough -Structure Exposed N/A -Texture ([place]-wound Skin Appearance) Assessed -Moisture ([place]-wound Skin Appearance Assessed,Dry/ ) Scaly -Color ([place]-wound Skin Appearance) Assessed -Temperature ([place]-wound Skin No Abnormality Appearance) (Pt Warm) -Tenderness on Palpation ([place]-wound No Skin Appearance) -Ulcer Cleansing Rinsed/ Irrigated with Saline -Foul Odor after Cleansing No -Anesthetic Used 5% Lidocaine Gel [Edema Assessment] -Lower Limb Edema Present Yes -Right Calf (cm) 47 -Right Ankle (cm) 25 -Left Calf (cm) 46.6 -Left Ankle (cm) 24.4 WC - Nurse 2 - General Ulcer CM Notes Start: 12/14/18 08:34 Freq: Status: Active Protocol: Activity Type Activity Date Activity User E-Sign Co-Sign Detail Recorded Client Recorded Date Recorded By Document 12/14/18 09:30 [id number] 12/14/18 09:53 12/14/18 09:30 Wound Center Nurse 2 [Procedure/Treatment] 1-left great toe dorsal -Correct Patient Yes -Correct Side, Site, Position Yes -Correct Procedure Yes -Procedure Performed Yes -Type of Procedure Debridement -Clinical Debridement Subcutaneous -Post Debridement Size (cm) - Length 1 -Post Debridement Size (cm) - Width 1 -Post Debridement Size (cm) - Depth 0.1 -Total Square Cm 1 -Wound/Ulcer Outcome Not Healed -Ulcer Cleansing Rinsed/ Irrigated with Saline -Foul Odor after Cleansing No -Bioengineered Tissue No -Bleeding Controlled with Pressure -Offloading Yes -Type of Offloading Surgical Shoe -Treatment Response Procedure Tolerated Well [See Physician Procedure note for Specifics] Musculoskeletal: No Muscle Wasting Neurological: Cranial nerves II-XII grossly intact Psych/Mental Status: Normal Affect, Appropriate, Alert and oriented to time, place, person, mood and affect Debridement Note Post-Debridement Measurements/Treatment WC - Nurse 2 - General Ulcer CM Notes Start: 12/14/18 08:34 Freq: Status: Active Protocol: Activity Type Activity Date Activity User E-Sign Co-Sign Detail Recorded Client Recorded Date Recorded By Document 12/14/18 09:30 [id number] 12/14/18 09:53 12/14/18 09:30 Wound Center Nurse 2 1-left great toe dorsal -Correct Patient Yes -Correct Side, Site, Position Yes -Correct Procedure Yes -Procedure Performed Yes -Type of Procedure Debridement -Clinical Debridement Subcutaneous -Post Debridement Size (cm) - Length 1 -Post Debridement Size (cm) - Width 1 -Post Debridement Size (cm) - Depth 0.1 -Total Square Cm 1 -Wound/Ulcer Outcome Not Healed -Ulcer Cleansing Rinsed/ Irrigated with Saline -Foul Odor after Cleansing No -Bioengineered Tissue No -Bleeding Controlled with Pressure -Offloading Yes -Type of Offloading Surgical Shoe -Treatment Response Procedure Tolerated Well Laterality: Left - Great toe Type of Debridement: Excisional debridement Anesthesia Used: 5% Lidocaine Gel Depth: Down to and including healthy tissue, in the subcutaneous layer Percentage of wound debrided: 100 Instrument Used: 7mm curette Tissue Removed: Bioburden and nonviable tissue Severity: Fat Layer Exposed Amount of bleeding with debridement: Mild Bleeding Controlled with: Compression and gauze Patient tolerated procedure well Assessment/Plan Active Problems (Last Reviewed 12/11/18 @ 10:12 by Tiffany Victoria) Diabetic toe ulcer (Chronic) Diabetic neuropathy (Chronic) Diabetic neuropathy associated with diabetes mellitus due to underlying condition (Chronic) Diabetes mellitus type 2, uncontrolled, with complications (Chronic) Assessment: This is a 43-year-old male with known diabetes mellitus and peripheral neuropathy. He presents with an ulceration on the left great toe. This appears to be pressure related, likely due to his diabetic neuropathy and ill-fitting footwear. The patient has been encouraged to continue with his current antibiotic regimen until completion. He has been advised to optimize his glycemic control. He has been also advised to optimize his nutritional int ro. Offloading measures are to be implemented. The patient has been instructed to continue wearing his postoperative shoe. He is to seek evaluation at [facility], specialists in fitting of podiatric shoes. We are to implement the use of collagenase Santyl topically, which will be applied topically on a daily basis. The patient is to be instructed in the appropriate means of application. We are to obtain routine laboratory studies, including a CBC, comprehensive metabolic profile, hemoglobin A1c, and a serum prealbumin. A noninvasive lower extremity arterial study will also be obtained, to assess the circulatory status of the patient's lower extremities. An x-ray of the left foot will also be obtained, to determine whether there is underlying abscess, deep infection, or osteomyelitis. Patient is to return in 1 week for reassessment. Routine laboratory studies have been reviewed from the past, performed in September 2018, at which time his hemoglobin A1c was 8.2. Chemistries were generally normal. However, glucose was 184. Spotcheck of the patient's hemoglobin A1c on an outpatient basis in November of this year was 8.7. Plan: Patient is to continue his oral antibiotics, Bactrim and Flagyl, until completion. We are to implement the use of collagenase Santyl topically. Offloading measures are to be implemented, and have been discussed thoroughly with the patient. We are to obtain routine laboratory studies, and noninvasive lower extremity arterial study and x-ray of the left great toe. The patient is return in 1 week for reassessment. Serial debridements are anticipated. Patient has been advised to optimize his glycemic control. Optimization of the patient's nutritional intake has also been recommended. Patient is non-smoker. Influenza vaccine was not administered today. Patient weighs 297 pounds. He stands 6 feet 5 inches tall. His BMI is 35.2, and weight loss has been encouraged, with collaboration from his primary care physician.
--- NOTE | 2018-12-14 10:22 | RAD_ITS ---
STUDY: X-RAY LEFT FOOT, FIRST TOE REASON FOR EXAM: Male, 43 years old. Soft tissue wound TECHNIQUE: 3 view(s) of the toe were obtained. COMPARISON: None. FINDINGS: Normal visualized metatarsus. Normal metatarsophalangeal (M.T.P) joint. Normal interphalangeal joints. There is an exostosis of the medial aspect of the base of the first distal phalanx. The soft tissue structures are unremarkable. RAD/Toe(s) Min 2 Views IMPRESSION: Exostosis of the medial aspect of the base of the first distal phalanx. There is no evidence of fracture, dislocation, or significant degenerative disease. No radiopaque soft tissue foreign body is noted. Electronically Signed: Alvaro Cool MD at 23:15 EDT , Service support ,
[2018-12-14 11:52] LABS: Hematocrit 43.5 % (40-54); Hemoglobin 15.2 g/dL (13.0-16.5); Mean Corp Hgb Conc 34.9 g/dL (32-36); Mean Corpuscular Hgb 28.9 pg (27.0-32.0); Mean Corpuscular Volume 82.7 fL (80-94); Mean Platelet Vol. 10.6 fl (6.2-12.0); Platelet Count 255 K/mm3 (150-450); RBC Distribution Width CV 11.9 % (11.6-14.6); RBC Distribution Width SD 36.2 fl (35.1-43.9); Red Blood Count 5.26 M/mm3 (4.6-6.2)
[2018-12-14 12:09] LABS: Hemoglobin A1c 8.1 % (4.2-6.3)
[2018-12-14 12:20] LABS: AST(SGOT) 40 U/L (15-37); Alanine Aminotransfer ALT/SGPT 97 U/L (16-61); Albumin, Serum 3.8 g/dL (3.2-5.0); Alkaline Phosphatase 53 U/L (45-117); Anion Gap 8 (5-15); BUN 11 mg/dL (7-18); BUN/Creat Ratio 7.9 RATIO (10-20); Chloride 103 mmol/L (98-107); EST Glomerular Filtration Rate 59 mL/min (>60); Est Glom Filt Rate - Afr Amer 71 mL/min (>60); Estimated Creatinine Clearance 84.86 ml/min; Globulin 3.9 g/dL (2.2-4.2); Glucose 216 mg/dL (74-106); Potassium 4.1 mmol/L (3.5-5.1); Prealbumin 28.7 mg/dL (20.0-40.0); Protein, Total 7.7 g/dL (6.4-8.2); Sodium Level 138 mmol/L (136-145)
== END 2018-12-18 23:59 ==
LOC: WC 08:18
PROVIDERS: Family Provider Family Medicine; PCP Family Medicine; Referring Provider Surgery; Visit Provider Surgery
DX: E11.621 Type 2 diabetes mellitus with foot ulcer (principal); L97.522 Non-pressure chronic ulcer of other part of left foot with fat layer exposed; E11.40 Type 2 diabetes mellitus with diabetic neuropathy, unspecified; Z98.84 Bariatric surgery status; E11.65 Type 2 diabetes mellitus with hyperglycemia; E78.5 Hyperlipidemia, unspecified; I10 Essential (primary) hypertension; E66.9 Obesity, unspecified; Z79.4 Long term (current) use of insulin; Z79.899 Other long term (current) drug therapy; Z87.891 Personal history of nicotine dependence
CPT/HCPCS: 11042; 36415; 73660; 80053; 83036; 84134; 85027; 99213; G0463

== ENCOUNTER 2019-01-11 08:00 | Outpatient (RCR) | payer OTHER, SELFPAY ==
[2018-12-19 01:15] VITALS: BP 168/107; PULSE 68; RESP 18; TEMP 36.7
[2018-12-21 09:35] VITALS: BP 159/89; PULSE 59; RESP 16; TEMP 35.4; BMI 35.2
--- NOTE | 2018-12-21 09:58 | PCM.WC.HP ---
(1) Diabetic toe ulcer Status: Chronic Current Visit: Yes Qualifiers: Diabetes mellitus type: type 2 Laterality: left Code(s): E11.621 - Type 2 diabetes mellitus with foot ulcer; L97.509 - Non-pressure chronic ulcer of other part of unspecified foot with unspecified severity (2) Diabetic neuropathy Status: Chronic Current Visit: Yes Qualifiers: Diabetes mellitus type: type 2 Diabetes mellitus complication detail: diabetic polyneuropathy Qualified Code(s): E11.42 - Type 2 diabetes mellitus with diabetic polyneuropathy Code(s): E11.40 - Type 2 diabetes mellitus with diabetic neuropathy, unspecified (3) Diabetic neuropathy associated with diabetes mellitus due to underlying condition Status: Chronic Current Visit: Yes Qualifiers: Diabetes mellitus complication detail: diabetic polyneuropathy Qualified Code(s): E08.42 - Diabetes mellitus due to underlying condition with diabetic polyneuropathy Code(s): E08.40 - Diabetes mellitus due to underlying condition with diabetic neuropathy, unspecified (4) Decubitus ulcer of left foot, stage 3 Status: Chronic Current Visit: Yes Code(s): L89.893 - Pressure ulcer of other site, stage 3 (5) Bariatric surgery status Status: Chronic Current Visit: No Code(s): Z98.84 - Bariatric surgery status (6) Obesity (BMI 30-39.9) Status: Chronic Current Visit: No Code(s): E66.9 - Obesity, unspecified (7) Diabetes mellitus type 2, uncontrolled, with complications Status: Chronic Current Visit: Yes Code(s): E11.8 - Type 2 diabetes mellitus with unspecified complications; E11.65 - Type 2 diabetes mellitus with hyperglycemia (8) Gout Status: Chronic Current Visit: No Qualifiers: Code(s): M10.9 - Gout, unspecified (9) Left ankle pain Status: Chronic Current Visit: No Qualifiers: Chronicity: chronic Qualified Code(s): M25.572 - Pain in left ankle and joints of left foot; G89.29 - Other chronic pain Code(s): M25.572 - Pain in left ankle and joints of left foot (10) Hyperlipidemia associated with type 2 diabetes mellitus Status: Chronic Current Visit: No Code(s): E11.69 - Type 2 diabetes mellitus with other specified complication; E78.5 - Hyperlipidemia, unspecified (11) Hypertension, essential Status: Chronic Current Visit: No Code(s): I10 - Essential (primary) hypertension (12) Type 2 diabetes mellitus without complication, with long-term current use of insulin Status: Chronic Current Visit: Yes Code(s): E11.9 - Type 2 diabetes mellitus without complications; Z79.4 - long term care pharmacist (current) use of insulin History of Present Illness Date of Service: 12/21/18 Chief Complaint: Left great toe ulceration History of Wound: This is a 43-year-old male who presented with an ulceration of his left great toe. The ulceration began as a blister, which was noted initially approximately 10 days prior to presentation. He was evaluated by his primary caregiver, who obtained cultures, which were positive for Staphylococcus aureus. The patient was subsequently placed on Bactrim and Flagyl orally, which have been completed. The patient is also known to have fractured his left fifth metatarsal in August 2018. He also has fractured his ankle in January 2018, which was undiagnosed until recently. Patient is diabetic, and blood sugars are said to run between 90 and 160 on a daily basis. Patient claims to have recently undergone diabetic counseling with a check writer salesperson. There has also been consideration of bariatric consultation in the recent past. He is known to suffer from diabetic peripheral neuropathy. The patient has recently been wearing a postoperative shoe for offloading purposes. Past Medical History Past Medical History: Chronic Problems (Last Reviewed 12/11/18 @ 10:12 by Tiffany Victoria) Diabetic toe ulcer (Chronic) Diabetic neuropathy (Chronic) Diabetic neuropathy associated with diabetes mellitus due to underlying condition (Chronic) Decubitus ulcer of left foot, stage 3 (Chronic) Bariatric surgery status (Chronic) Obesity (BMI 30-39.9) (Chronic) Diabetes mellitus type 2, uncontrolled, with complications (Chronic) Gout (Chronic) Left ankle pain (Chronic) Hyperlipidemia associated with type 2 diabetes mellitus (Chronic) Hypertension, essential (Chronic) Type 2 diabetes mellitus without complication, with long-term current use of insulin (Chronic) Surgical History: no surgical history Allergies/Adverse Reactions: Allergies amoxicillin [From Augmentin] Allergy (Severe, Verified 09/10/18 08:01) Unknown clavulanic acid [From Augmentin] Allergy (Severe, Verified 09/10/18 08:01) Unknown Home Medications: Ambulatory Orders Medication Instructions Recorded flash glucose scanning reader See Dose Instructions .ROUTE 04/07/18 .MEDSUPPLY #1 ea flash glucose sensor kit See Dose Instructions .ROUTE 04/07/18 .MEDSUPPLY #2 ea insulin regular human U-500 See Rx Instructions SC QACBREAK 05/19/18 concentrate 500 unit/mL(3 mL) #24 ml subcut pen amlodipine 5 mg tablet 5 mg PO DAILY #30 tab 05/28/18 fenofibrate 160 mg tablet 160 mg PO QDAY #30 tab 05/28/18 hydrochlorothiazide 25 mg tablet 25 mg PO QAM #30 tab 05/28/18 metformin 1,000 mg tablet 1,000 mg PO BID #60 tab 05/28/18 metoprolol succinate ER 50 mg 50 mg PO QDAY #30 tab 05/28/18 tablet,extended release 24 hr ramipril 10 mg capsule 10 mg PO QDAY #30 cap 05/28/18 - Family History Paternal Family History: Family History (Last Reviewed 12/11/18 @ 10:12 by Tiffany Victoria) Mother Asthma Hypertension Other Diverticulitis Family history of high cholesterol Glaucoma Heart disease Kidney disease Renal failure - - Patient's father is 63 years of age and has a history of hyperlipidemia. The patient's mother 63 years of age with a history of hypertension. Smoking Status: Former smoker Tobacco Use: Non-smoker Review of Systems Constitutional: Denies: Chills, Fever, Weight Change Eyes: Denies: Pain, Vision Change HEENT: Denies: Difficulty Hearing, Difficulty Swallowing, Sinus Congestion Cardiovascular: Denies: Chest Pain, Palpitations Respiratory: Denies: Cough, Shortness of Breath Gastrointestinal: Denies: Diarrhea, Nausea, Vomiting Genitourinary: Denies: Dysuria, Hematuria Endocrine: Denies: Heat/ Cold Intolerance, Polydipsia, Polyuria Hematologic/ Lymphatic: Denies: Easy Bruising, Easy Bleeding - Physical Exam Vital Signs Temp Pulse Resp BP 95.7 F L 59 L 16 159/89 H 12/21/18 09:35 12/21/18 09:35 12/21/18 09:35 12/21/18 09:35 General: Alert, Oriented x3, Cooperative, No apparent distress, Well developed, Well nourished, - - The patient is morbidly obese. HEENT: Atraumatic, PERRLA, EOMI, Normocephalic Oral: Moist Mucosa Neck: No JVD Lungs: Normal air movement Abdomen: Non-Distended, Obese Extremities: No clubbing, No cyanosis, No edema, No Calf Tenderness, - - The ulceration persists on the left great toe. It is slightly smaller in size. The base of the ulcer is improved in appearance, and generally pink and healthy in appearance, with active granulation tissue. There is no obvious sign of infection or cellulitis. Dimensions are documented elsewhere. There is a moderate amount of bioburden. Skin: No rashes Wound Measurements and Assessment WC - Nurse 1 - General Ulcer Measurement Start: 12/21/18 09:35 Freq: Status: Active Protocol: Activity Type Activity Date Activity User E-Sign Co-Sign Detail Recorded Client Recorded Date Recorded By Document 12/21/18 09:35 MW [id number] 12/21/18 09:43 MW 12/21/18 09:35 Wound Center Nurse 1 [Ulcer Assessment] 1-left great toe dorsal -Combined with other wound No -Current Size (cm) - Length 0.8 -Current Size (cm) - Width 0.9 -Current Size (cm) - Depth 0.1 -Total Square Cm 0.72 -Photo Taken No -Epithelialization None Present -Tunneling No -Undermining/Tunneling No -Circular Undermining No -Exudate Amt Small -Exudate Type Serous -Wound Margin Flat & Intact -Granulation Amt None Present (0 %) -Granulation Quality N/A -Slough/Fibrin Yes -Necrosis Amt Large (67-100%) -Necrotic Tissue Type Adherent Slough -Structure Exposed N/A -Texture (Mariama-wound Skin Appearance) Assessed, Localized Edema -Moisture (Mariama-wound Skin Appearance Assessed, ) Maceration -Color (Mariama-wound Skin Appearance) No Abnormality, Assessed -Temperature (Mariama-wound Skin No Abnormality Appearance) (Pt Warm) -Tenderness on Palpation (Mariama-wound Yes Skin Appearance) -Ulcer Cleansing soap and water -Foul Odor after Cleansing No -Anesthetic Used 5% Lidocaine Gel [Edema Assessment] -Lower Limb Edema Present No Musculoskeletal: No Muscle Wasting Neurological: Cranial nerves II-XII grossly intact, Neuro grossly intact Psych/Mental Status: Normal Affect, Appropriate, Alert and oriented to time, place, person, mood and affect Debridement Note Laterality: Left - Great toe Type of Debridement: Excisional debridement Anesthesia Used: 5% Lidocaine Gel Depth: Down to and including healthy tissue, in the subcutaneous layer Percentage of wound debrided: 100 Instrument Used: 3mm curette Tissue Removed: Bioburden and nonviable tissue Severity: Fat Layer Exposed Amount of bleeding with debridement: Mild Bleeding Controlled with: Compression and gauze Patient tolerated procedure well Assessment/Plan Active Problems (Last Reviewed 12/11/18 @ 10:12 by Tiffany Victoria) Diabetic toe ulcer (Chronic) Diabetic neuropathy (Chronic) Diabetic neuropathy associated with diabetes mellitus due to underlying condition (Chronic) Decubitus ulcer of left foot, stage 3 (Chronic) Diabetes mellitus type 2, uncontrolled, with complications (Chronic) Type 2 diabetes mellitus without complication, with long-term current use of insulin (Chronic) Assessment: This is a 43-year-old male with known diabetes mellitus and peripheral neuropathy. He presented with an ulceration on the left great toe. This appears to be pressure related, likely due to his diabetic neuropathy and ill-fitting footwear. The patient has completed his antibiotic regimen. He has been advised to optimize his glycemic control. He has been also advised to optimize his nutritional intake. Offloading measures are to be implemented. The patient has been instructed to continue wearing his postoperative shoe. He has sought evaluation at [facility] in [place], specialists in fitting of podiatric shoes. They have dispensed a Darco boot which the patient is now wearing. We are to continue the use of collagenase Santyl topically, which will be applied topically on a daily basis. The patient is to be instructed in the appropriate means of application. The aforementioned measures have resulted in significant improvement in the appearance of the patient's left great toe ulceration thus far. Patient has undergone a battery of diagnostic studies, results of which are as follows: White blood count 6.0, hemoglobin 15.2, hematocrit 43.5, platelets 255,000, glucose 216, BUN 11, creatinine 1.40, total protein 7.7, albumin 3.8, calcium 9.0, AST 40, alkaline phosphatase 53, ALT 97, sodium 138, potassium 4.1, chloride 103, serum prealbumin 28.7, hemoglobin A1c 8.1. An x-ray of the patient's left great toe reveals no evidence of fracture, dislocation, or significant degenerative disease. A noninvasive lower extremity arterial study is pending to assess the circulatory status of the patient's lower extremities. Patient is to return in 1 week for reassessment. Plan: We are to continue the use of collagenase Santyl topically. Offloading measures are to be continued, and have been discussed thoroughly with the patient. The patient is return in 1 week for reassessment. Serial debridements are anticipated. Patient has been advised to optimize his glycemic control. Optimization of the patient's nutritional intake has also been recommended. We will await the results of the patient's noninvasive lower extremity arterial study. He has an appointment with business information analyst, Dr. Hooper, in several days. We will await Dr. Hooper's recommendations. Patient is non-smoker. Influenza vaccine was not administered today. Patient weighs 297 pounds. He stands 6 feet 5 inches tall. His BMI is 35.2, and weight loss has been encouraged, with collaboration from his primary care physician.
--- NOTE | 2018-12-24 11:02 | ART_ITS ---
Reason For Study: PAD Procedure A bilateral lower extremity continuous wave Doppler with analog waveform analysis,segmental pressures,and ankle brachial indexes without exercise. Left Segmental Pressures Left brachial= 164mmHg. Left posterior tibial artery = >254mmHg. Left dorsalis pedis artery = 233mmHg. The left dorsalis pedis waveforms are triphasic. The left posterior tibial artery waveforms are triphasic. Right Segmental Pressures Right brachial= 163mmHg. Right posterior tibial artery = 212mmHg. Right dorsalis pedis artery = 218mmHg. The right dorsalis pedis waveforms are triphasic. The right posterior tibial artery waveforms are triphasic. Indices The right ankle brachial index by the dorsalis pedis is 1.33. The right ankle brachial index by the posterior tibial artery is 1.29. The left ankle brachial index by the dorsalis pedis is 1.42. The left ankle brachial index by the posterior tibial artery is NC. Interpretation Summary Triphasic Doppler waveforms are noted at ankle level bilaterally. Pulse-volume recordings appear normal at all levels bilaterally, including low-thigh, calf, ankle, and digital levels. The resting right ankle-brachial index is normal. The resting left ankle-brachial index is supra-normal. There is no evidence of significant arterial occlusive disease in the lower extremities bilaterally. Arterial flow appears normal at ankle level bilaterally. However, there is evidence of arterial calcification at ankle level on the left. Ordering Physician: Aaron Perkins Referring Physician: Vicenta Rai Performed By: Keren Llody RVT
[2018-12-28 10:06] VITALS: BP 164/94; PULSE 66; RESP 18; TEMP 36.2; BMI 35.2
--- NOTE | 2018-12-28 11:10 | HP.PCM_ITS ---
(1) Diabetic toe ulcer Status: Chronic Current Visit: Yes Qualifiers: Diabetes mellitus type: type 2 Laterality: left Code(s): E11.621 - Type 2 diabetes mellitus with foot ulcer; L97.509 - Non- pressure chronic ulcer of other part of unspecified foot with unspecified severity (2) Diabetic neuropathy Status: Chronic Current Visit: Yes Qualifiers: Diabetes mellitus type: type 2 Diabetes mellitus complication detail: diabetic polyneuropathy Qualified Code(s): E11.42 - Type 2 diabetes mellitus with diabetic polyneuropathy Code(s): E11.40 - Type 2 diabetes mellitus with diabetic neuropathy, unspecified (3) Diabetic neuropathy associated with diabetes mellitus due to underlying condition Status: Chronic Current Visit: Yes Qualifiers: Diabetes mellitus complication detail: diabetic polyneuropathy Qualified Code(s): E08.42 - Diabetes mellitus due to underlying condition with diabetic polyneuropathy Code(s): E08.40 - Diabetes mellitus due to underlying condition with diabetic neuropathy, unspecified (4) Decubitus ulcer of left foot, stage 3 Status: Chronic Current Visit: Yes Code(s): L89.893 - Pressure ulcer of other site, stage 3 (5) Bariatric surgery status Status: Chronic Current Visit: No Code(s): Z98.84 - Bariatric surgery status (6) Obesity (BMI 30-39.9) Status: Chronic Current Visit: No Code(s): E66.9 - Obesity, unspecified (7) Diabetes mellitus type 2, uncontrolled, with complications Status: Chronic Current Visit: Yes Code(s): E11.8 - Type 2 diabetes mellitus with unspecified complications; E11.65 - Type 2 diabetes mellitus with hyperglycemia (8) Gout Status: Chronic Current Visit: No Qualifiers: Code(s): M10.9 - Gout, unspecified (9) Left ankle pain Status: Chronic Current Visit: No Qualifiers: Chronicity: chronic Qualified Code(s): M25.572 - Pain in left ankle and joints of left foot; G89.29 - Other chronic pain Code(s): M25.572 - Pain in left ankle and joints of left foot (10) Hyperlipidemia associated with type 2 diabetes mellitus Status: Chronic Current Visit: No Code(s): E11.69 - Type 2 diabetes mellitus with other specified complication; E78.5 - Hyperlipidemia, unspecified (11) Hypertension, essential Status: Chronic Current Visit: No Code(s): I10 - Essential (primary) hypertension (12) Type 2 diabetes mellitus without complication, with long-term current use of insulin Status: Chronic Current Visit: Yes Code(s): E11.9 - Type 2 diabetes mellitus without complications; Z79.4 - salvage determiner (current) use of insulin History of Present Illness Date of Service: 12/28/18 Chief Complaint: Left great toe ulceration History of Wound: This is a 43-year-old male who presented with an ulceration of his left great toe. The ulceration began as a blister, which was noted initially approximately 10 days prior to presentation. He was evaluated by his primary caregiver, who obtained cultures, which were positive for Staphylococcus aureus. The patient was subsequently placed on Bactrim and Flagyl orally, which have been completed. The patient is also known to have fractured his left fifth metatarsal in August 2018. He also has fractured his ankle in January 2018, which was undiagnosed until recently. Patient is diabetic, and blood sugars are said to run between 90 and 160 on a daily basis. Patient claims to have recently undergone diabetic counseling with a boat joiner helper. There has also been consideration of bariatric consultation in the recent past. He is known to suffer from diabetic peripheral neuropathy. The patient has recently been wearing a postoperative shoe for offloading purposes. Past Medical History Past Medical History: Chronic Problems (Last Reviewed 12/11/18 @ 10:12 by Tiffany Victoria) Diabetic toe ulcer (Chronic) Diabetic neuropathy (Chronic) Diabetic neuropathy associated with diabetes mellitus due to underlying condition (Chronic) Decubitus ulcer of left foot, stage 3 (Chronic) Bariatric surgery status (Chronic) Obesity (BMI 30-39.9) (Chronic) Diabetes mellitus type 2, uncontrolled, with complications (Chronic) Gout (Chronic) Left ankle pain (Chronic) Hyperlipidemia associated with type 2 diabetes mellitus (Chronic) Hypertension, essential (Chronic) Type 2 diabetes mellitus without complication, with long-term current use of insulin (Chronic) Surgical History: no surgical history Allergies/Adverse Reactions: Allergies amoxicillin [From Augmentin] Allergy (Severe, Verified 09/10/18 08:01) Unknown clavulanic acid [From Augmentin] Allergy (Severe, Verified 09/10/18 08:01) Unknown Home Medications: Ambulatory Orders Medication Instructions Recorded flash glucose scanning reader See Dose Instructions .ROUTE 04/07/18 .MEDSUPPLY #1 ea flash glucose sensor kit See Dose Instructions .ROUTE 04/07/18 .MEDSUPPLY #2 ea insulin regular human U-500 See Rx Instructions SC QACBREAK 05/19/18 concentrate 500 unit/mL(3 mL) #24 ml subcut pen amlodipine 5 mg tablet 5 mg PO DAILY #30 tab 05/28/18 fenofibrate 160 mg tablet 160 mg PO QDAY #30 tab 05/28/18 hydrochlorothiazide 25 mg tablet 25 mg PO QAM #30 tab 05/28/18 metformin 1,000 mg tablet 1,000 mg PO BID #60 tab 05/28/18 metoprolol succinate ER 50 mg 50 mg PO QDAY #30 tab 05/28/18 tablet,extended release 24 hr ramipril 10 mg capsule 10 mg PO QDAY #30 cap 05/28/18 - Family History Paternal Family History: Family History (Last Reviewed 12/11/18 @ 10:12 by Tiffany Victoria) Mother Asthma Hypertension Other Diverticulitis Family history of high cholesterol Glaucoma Heart disease Kidney disease Renal failure - - Patient's father is 63 years of age and has a history of hyperlipidemia. The patient's mother 63 years of age with a history of hypertension. Smoking Status: Former smoker Tobacco Use: Non-smoker Review of Systems Constitutional: Denies: Chills, Fever, Weight Change Eyes: Denies: Pain, Vision Change HEENT: Denies: Difficulty Hearing, Difficulty Swallowing, Sinus Congestion Cardiovascular: Denies: Chest Pain, Palpitations Respiratory: Denies: Cough, Shortness of Breath Gastrointestinal: Denies: Diarrhea, Nausea, Vomiting Genitourinary: Denies: Dysuria, Hematuria Endocrine: Denies: Heat/ Cold Intolerance, Polydipsia, Polyuria Hematologic/ Lymphatic: Denies: Easy Bruising, Easy Bleeding - Physical Exam Vital Signs Temp Pulse Resp BP 97.2 F L 66 18 164/94 H 12/28/18 10:06 12/28/18 10:06 12/28/18 10:06 12/28/18 10:06 General: Alert, Oriented x3, Cooperative, No apparent distress, Well developed, Well nourished HEENT: Atraumatic, PERRLA, EOMI, Normocephalic Oral: Moist Mucosa Neck: No JVD Lungs: Normal air movement Abdomen: Non-Distended, Obese Extremities: No clubbing, No cyanosis, No edema, No Calf Tenderness, - - The ulceration on the left great toe shows some improvement. It is smaller in size. Dimensions are documented elsewhere. There is no sign of infection or cellulitis. There is a small amount of bioburden and nonviable tissue present. There appears to be less surrounding callus. Skin: No rashes Wound Measurements and Assessment WC - Nurse 1 - General Ulcer Measurement Start: 12/21/18 09:35 Freq: Status: Active Protocol: Activity Type Activity Date Activity User E-Sign Co-Sign Detail Recorded Client Recorded Date Recorded By Document 12/28/18 10:06 DL [id number] 12/28/18 10:13 DL 12/28/18 10:06 Wound Center Nurse 1 [Ulcer Assessment] 1-left great toe dorsal -Current Size (cm) - Length 0.5 -Current Size (cm) - Width 0.5 -Current Size (cm) - Depth 0.2 -Total Square Cm 0.25 -Photo Taken No -Exudate Amt None Present -Wound Margin Thickened -Granulation Amt Large (67-100%) -Granulation Quality Pale -Necrosis Amt Small (1-33%) -Necrotic Tissue Type Adherent Slough -Structure Exposed N/A -Texture (Mariama-wound Skin Appearance) Localized Edema ,Scarring -Moisture (Mariama-wound Skin Appearance Maceration ) -Color (Mariama-wound Skin Appearance) No Abnormality -Temperature (Mariama-wound Skin No Abnormality Appearance) (Pt Warm) -Tenderness on Palpation (Mariama-wound No Skin Appearance) -Ulcer Cleansing Rinsed/ Irrigated with Saline -Foul Odor after Cleansing No -Anesthetic Used 5% Lidocaine Gel - Nurse 2 - General Ulcer CM Notes Start: 12/21/18 09:35 Freq: Status: Active Protocol: Activity Type Activity Date Activity User E-Sign Co-Sign Detail Recorded Client Recorded Date Recorded By Document 12/28/18 11:02 MW [id number] 12/28/18 11:07 MW 12/28/18 11:02 Wound Center Nurse 2 [Procedure/Treatment] -Time 11:05 -Correct Patient Yes -Correct Side, Site, Position Yes -Correct Procedure Yes -Procedure Performed Yes -Type of Procedure Debridement -Clinical Debridement Subcutaneous -Post Debridement Size (cm) - Length 0.4 -Post Debridement Size (cm) - Width 0.4 -Post Debridement Size (cm) - Depth 0.2 -Total Square Cm 0.16 -Wound/Ulcer Outcome Not Healed -Ulcer Cleansing Rinsed/ Irrigated with Saline -Foul Odor after Cleansing No -Bioengineered Tissue No -Bleeding Controlled with Pressure -Offloading No -Treatment Response Procedure Tolerated Well [See Physician Procedure note for Specifics] Pain Scale: 0-10 Numeric [Pain] -Is Patient Pain Free? Yes Musculoskeletal: No Muscle Wasting Neurological: Cranial nerves II-XII grossly intact, Neuro grossly intact Psych/Mental Status: Normal Affect, Appropriate, Alert and oriented to time, place, person, mood and affect Debridement Note Post-Debridement Measurements/Treatment WC - Nurse 2 - General Ulcer CM Notes Start: 12/21/18 09:35 Freq: Status: Active Protocol: Activity Type Activity Date Activity User E-Sign Co-Sign Detail Recorded Client Recorded Date Recorded By Document 12/28/18 11:02 MW [id number] 12/28/18 11:07 MW 12/28/18 11:02 Wound Center Nurse 2 1-left great toe dorsal -Time 11:05 -Correct Patient Yes -Correct Side, Site, Position Yes -Correct Procedure Yes -Procedure Performed Yes -Type of Procedure Debridement -Clinical Debridement Subcutaneous -Post Debridement Size (cm) - Length 0.4 -Post Debridement Size (cm) - Width 0.4 -Post Debridement Size (cm) - Depth 0.2 -Total Square Cm 0.16 -Wound/Ulcer Outcome Not Healed -Ulcer Cleansing Rinsed/ Irrigated with Saline -Foul Odor after Cleansing No -Bioengineered Tissue No -Bleeding Controlled with Pressure -Offloading No -Treatment Response Procedure Tolerated Well Pain Scale: 0-10 Numeric Is Patient Pain Free? Yes Laterality: Left - Great toe Type of Debridement: Excisional debridement Anesthesia Used: 5% Lidocaine Gel Depth: Down to and including healthy tissue, in the subcutaneous layer Percentage of wound debrided: 100 Instrument Used: 3mm curette Tissue Removed: Bioburden and nonviable tissue Severity: Fat Layer Exposed Amount of bleeding with debridement: Mild Bleeding Controlled with: Compression and gauze Patient tolerated procedure well Assessment/Plan Active Problems (Last Reviewed 12/11/18 @ 10:12 by Tiffany Victoria) Diabetic toe ulcer (Chronic) Diabetic neuropathy (Chronic) Diabetic neuropathy associated with diabetes mellitus due to underlying condition (Chronic) Decubitus ulcer of left foot, stage 3 (Chronic) Diabetes mellitus type 2, uncontrolled, with complications (Chronic) Type 2 diabetes mellitus without complication, with long-term current use of insulin (Chronic) Assessment: This is a 43-year-old male with known diabetes mellitus and peripheral neuropathy. He presented with an ulceration on the left great toe. This appears to be pressure related, likely due to his diabetic neuropathy and ill-fitting footwear. The patient has completed his antibiotic regimen. He has been advised to optimize his glycemic control. He has been also advised to op timize his nutritional intake. Offloading measures are to be implemented. The patient has been instructed to continue wearing his postoperative shoe. He has sought evaluation at [facility] in [place], specialists in fitting of podiatric shoes. They have dispensed a Darco boot which the patient is now wearing. We are to continue the use of collagenase Santyl topically, which will be applied topically on a daily basis. The patient is to be instructed in the appropriate means of application. The aforementioned measures have resulted in significant improvement in the appearance of the patient's left great toe ulceration thus far. Patient has undergone a battery of diagnostic studies, results of which are as follows: White blood count 6.0, hemoglobin 15.2, hematocrit 43.5, platelets 255,000, glucose 216, BUN 11, creatinine 1.40, total protein 7.7, albumin 3.8, calcium 9.0, AST 40, alkaline phosphatase 53, ALT 97, sodium 138, potassium 4.1, chloride 103, serum prealbumin 28.7, hemoglobin A1c 8.1. An x- ray of the patient's left great toe reveals no evidence of fracture, dislocation, or significant degenerative disease. A noninvasive lower extremity arterial study performed on 12/21/2018 reveals no evidence of significant arterial occlusive disease in the lower extremities. There is, however, evidence of arterial calcification at ankle level on the left. Patient was evaluated by Dr. Hooper, laboratory miller, last week, who made some modifications in the patient's surgical shoe, and has arranged to order diabetic shoes for the patient. Patient is to return in 1 week for reassessment. Plan: We are to continue the use of collagenase Santyl topically. Offloading measures are to be continued, and have been discussed thoroughly with the patient. The patient is return in 1 week for reassessment. Serial debridements are anticipated. Patient has been advised to optimize his glycemic control. Optimization of the patient's nutritional intake has also been recommended. We will await the results of the patient's noninvasive lower extremity arterial study. Patient is non-smoker. Influenza vaccine was not administered today. Patient weighs 297 pounds. He stands 6 feet 5 inches tall. His BMI is 35.2, and weight loss has been encouraged, with collaboration from his primary care physician.
[2019-01-04 08:10] VITALS: BP 167/90; PULSE 81; RESP 18; BMI 35.2
--- NOTE | 2019-01-04 08:24 | PCM.WC.HP ---
(1) Diabetic toe ulcer Status: Chronic Current Visit: Yes Qualifiers: Diabetes mellitus type: type 2 Laterality: left Code(s): E11.621 - Type 2 diabetes mellitus with foot ulcer; L97.509 - Non-pressure chronic ulcer of other part of unspecified foot with unspecified severity (2) Diabetic neuropathy Status: Chronic Current Visit: Yes Qualifiers: Diabetes mellitus type: type 2 Diabetes mellitus complication detail: diabetic polyneuropathy Qualified Code(s): E11.42 - Type 2 diabetes mellitus with diabetic polyneuropathy Code(s): E11.40 - Type 2 diabetes mellitus with diabetic neuropathy, unspecified (3) Diabetic neuropathy associated with diabetes mellitus due to underlying condition Status: Chronic Current Visit: Yes Qualifiers: Diabetes mellitus complication detail: diabetic polyneuropathy Qualified Code(s): E08.42 - Diabetes mellitus due to underlying condition with diabetic polyneuropathy Code(s): E08.40 - Diabetes mellitus due to underlying condition with diabetic neuropathy, unspecified (4) Decubitus ulcer of left foot, stage 3 Status: Chronic Current Visit: Yes Code(s): L89.893 - Pressure ulcer of other site, stage 3 (5) Bariatric surgery status Status: Chronic Current Visit: No Code(s): Z98.84 - Bariatric surgery status (6) Obesity (BMI 30-39.9) Status: Chronic Current Visit: No Code(s): E66.9 - Obesity, unspecified (7) Diabetes mellitus type 2, uncontrolled, with complications Status: Chronic Current Visit: Yes Code(s): E11.8 - Type 2 diabetes mellitus with unspecified complications; E11.65 - Type 2 diabetes mellitus with hyperglycemia (8) Gout Status: Chronic Current Visit: No Qualifiers: Code(s): M10.9 - Gout, unspecified (9) Left ankle pain Status: Chronic Current Visit: No Qualifiers: Chronicity: chronic Qualified Code(s): M25.572 - Pain in left ankle and joints of left foot; G89.29 - Other chronic pain Code(s): M25.572 - Pain in left ankle and joints of left foot (10) Hyperlipidemia associated with type 2 diabetes mellitus Status: Chronic Current Visit: No Code(s): E11.69 - Type 2 diabetes mellitus with other specified complication; E78.5 - Hyperlipidemia, unspecified (11) Hypertension, essential Status: Chronic Current Visit: No Code(s): I10 - Essential (primary) hypertension (12) Type 2 diabetes mellitus without complication, with long-term current use of insulin Status: Chronic Current Visit: Yes Code(s): E11.9 - Type 2 diabetes mellitus without complications; 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 The ulceration began as a blister, which was noted initially approximately 10 days prior to presentation. He was evaluated by his primary caregiver, who obtained cultures, which were positive for Staphylococcus aureus. The patient was subsequently placed on Bactrim and Flagyl orally, which have been completed. The patient is also known to have fractured his left fifth metatarsal in August 2018. He also has fractured his ankle in January 2018, which was undiagnosed until recently. Patient is diabetic, and blood sugars are said to run between 90 and 160 on a daily basis. 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 There has also been consideration of bariatric consultation in the recent past. He is known to suffer from diabetic peripheral neuropathy. The patient has recently been wearing a postoperative shoe for offloading purposes. Past Medical History Past Medical History: Chronic Problems (Last Reviewed 12/11/18 @ 10:12 by Tiffany Victoria) Diabetic toe ulcer (Chronic) Diabetic neuropathy (Chronic) Diabetic neuropathy associated with diabetes mellitus due to underlying condition (Chronic) Decubitus ulcer of left foot, stage 3 (Chronic) Bariatric surgery status (Chronic) Obesity (BMI 30-39.9) (Chronic) Diabetes mellitus type 2, uncontrolled, with complications (Chronic) Gout (Chronic) Left ankle pain (Chronic) Hyperlipidemia associated with type 2 diabetes mellitus (Chronic) Hypertension, essential (Chronic) Type 2 diabetes mellitus without complication, with long-term current use of insulin (Chronic) Surgical History: no surgical history Allergies/Adverse Reactions: Allergies amoxicillin [From Augmentin] Allergy (Severe, Verified 09/10/18 08:01) Unknown clavulanic acid [From Augmentin] Allergy (Severe, Verified 09/10/18 08:01) Unknown Home Medications: Ambulatory Orders Medication Instructions Recorded flash glucose scanning reader See Dose Instructions .ROUTE 04/07/18 .MEDSUPPLY #1 ea flash glucose sensor kit See Dose Instructions .ROUTE 04/07/18 .MEDSUPPLY #2 ea insulin regular human U-500 See Rx Instructions SC QACBREAK 05/19/18 concentrate 500 unit/mL(3 mL) #24 ml subcut pen amlodipine 5 mg tablet 5 mg PO DAILY #30 tab 05/28/18 fenofibrate 160 mg tablet 160 mg PO QDAY #30 tab 05/28/18 hydrochlorothiazide 25 mg tablet 25 mg PO QAM #30 tab 05/28/18 metformin 1,000 mg tablet 1,000 mg PO BID #60 tab 05/28/18 metoprolol succinate ER 50 mg 50 mg PO QDAY #30 tab 05/28/18 tablet,extended release 24 hr ramipril 10 mg capsule 10 mg PO QDAY #30 cap 05/28/18 - Family History Paternal Family History: Family History (Last Reviewed 12/11/18 @ 10:12 by Tiffany Victoria) Mother Asthma Hypertension Other Diverticulitis Family history of high cholesterol Glaucoma Heart disease Kidney disease Renal failure - - Patient's father is 63 years of age and has a history of hyperlipidemia. The patient's mother 63 years of age with a history of hypertension. Smoking Status: Former smoker Tobacco Use: Non-smoker Review of Systems Constitutional: Denies: Chills, Fever, Weight Change Eyes: Denies: Pain, Vision Change HEENT: Denies: Difficulty Hearing, Difficulty Swallowing, Sinus Congestion Cardiovascular: Denies: Chest Pain, Palpitations Respiratory: Denies: Cough, Shortness of Breath Gastrointestinal: Denies: Diarrhea, Nausea, Vomiting Genitourinary: Denies: Dysuria, Hematuria Endocrine: Denies: Heat/ Cold Intolerance, Polydipsia, Polyuria Hematologic/ Lymphatic: Denies: Easy Bruising, Easy Bleeding - Physical Exam Vital Signs Temp Pulse Resp BP 97.2 F L 81 18 167/90 H 12/28/18 10:06 01/04/19 08:10 01/04/19 08:10 01/04/19 08:10 General: Alert, Oriented x3, Cooperative, No apparent distress, Well developed, Well nourished HEENT: Atraumatic, PERRLA, EOMI, Normocephalic Oral: Moist Mucosa Neck: No JVD Lungs: Normal air movement Abdomen: Non-Distended Extremities: No clubbing, No cyanosis, No edema, No Calf Tenderness, - - The ulceration on the dorsum of the left great toe is smaller in size. Dimensions are documented elsewhere. There is no sign of infection or cellulitis. The amount of callus formation peripherally appears to be diminishing. The base of the ulceration is pink and generally healthy, with only a small amount of bioburden. Skin: No rashes Wound Measurements and Assessment WC - Nurse 1 - General Ulcer Measurement Start: 12/21/18 09:35 Freq: Status: Active Protocol: Activity Type Activity Date Activity User E-Sign Co-Sign Detail Recorded Client Recorded Date Recorded By Document 01/04/19 08:10 [id number] 01/04/19 08:12 01/04/19 08:10 Wound Center Nurse 1 [Ulcer Assessment] 1-left great toe dorsal -Combined with other wound No -Current Size (cm) - Length 0.2 -Current Size (cm) - Width 0.2 -Current Size (cm) - Depth 0.1 -Total Square Cm 0.04 -Photo Taken No -Epithelialization Medium 34-66% -Tunneling No -Undermining/Tunneling No -Circular Undermining No -Exudate Amt Small -Exudate Type Serosanguineous -Wound Margin Flat & Intact -Granulation Amt Medium (34-66%) -Granulation Quality Red -Slough/Fibrin Yes -Necrosis Amt Medium (34-66%) -Necrotic Tissue Type Adherent Slough -Structure Exposed N/A -Texture (Mariama-wound Skin Appearance) Assessed,Callus -Moisture ([place]ariama-wound Skin Appearance Assessed,Dry/ ) Scaly -Color (Mariama-wound Skin Appearance) Assessed -Temperature ([place]ariama-wound Skin No Abnormality Appearance) (Pt Warm) -Tenderness on Palpation (Mariama-wound No Skin Appearance) -Ulcer Cleansing Wound Cleanser -Foul Odor after Cleansing No -Anesthetic Used 4% Lidocaine Solution [Edema Assessment] -Lower Limb Edema Present NA WC - Nurse 2 - General Ulcer CM Notes Start: 12/21/18 09:35 Freq: Status: Active Protocol: Activity Type Activity Date Activity User E-Sign Co-Sign Detail Recorded Client Recorded Date Recorded By Document 01/04/19 08:18 MW [id number] 01/04/19 08:22 MW 01/04/19 08:18 Wound Center Nurse 2 [Procedure/Treatment] 1-left great toe dorsal -Time 08:19 -Correct Patient Yes -Correct Side, Site, Position Yes -Correct Procedure Yes -Procedure Performed Yes -Type of Procedure Debridement -Clinical Debridement Subcutaneous -Post Debridement Size (cm) - Length 0.3 -Post Debridement Size (cm) - Width 0.3 -Post Debridement Size (cm) - Depth 0.1 -Total Square Cm 0.09 -Wound/Ulcer Outcome Not Healed -Ulcer Cleansing Rinsed/ Irrigated with Saline -Foul Odor after Cleansing No -Bioengineered Tissue No -Bleeding Controlled with Pressure -Offloading No -Treatment Response Procedure Tolerated Well [See Physician Procedure note for Specifics] Pain Scale: 0-10 Numeric [Pain] -Is Patient Pain Free? Yes Musculoskeletal: No Muscle Wasting Neurological: Cranial nerves II-XII grossly intact, Neuro grossly intact Psych/Mental Status: Normal Affect, Appropriate, Alert and oriented to time, place, person, mood and affect Debridement Note Post-Debridement Measurements/Treatment WC - Nurse 2 - General Ulcer CM Notes Start: 12/21/18 09:35 Freq: Status: Active Protocol: Activity Type Activity Date Activity User E-Sign Co-Sign Detail Recorded Client Recorded Date Recorded By Document 12/28/18 11:02 MW [id number] 12/28/18 11:07 MW Document 01/04/19 08:18 MW [id number] 01/04/19 08:22 MW 12/28/18 01/04/19 11:02 08:18 Wound Center Nurse 2 1-left great toe dorsal -Time 11:05 08:19 -Correct Patient Yes Yes -Correct Side, Site, Position Yes Yes -Correct Procedure Yes Yes -Procedure Performed Yes Yes -Type of Procedure Debridement Debridement -Clinical Debridement Subcutaneous Subcutaneous -Post Debridement Size (cm) - Length 0.4 0.3 -Post Debridement Size (cm) - Width 0.4 0.3 -Post Debridement Size (cm) - Depth 0.2 0.1 -Total Square Cm 0.16 0.09 -Wound/Ulcer Outcome Not Healed Not Healed -Ulcer Cleansing Rinsed/ Rinsed/ Irrigated with Irrigated with Saline Saline -Foul Odor after Cleansing No No -Bioengineered Tissue No No -Bleeding Controlled with Pressure Pressure -Offloading No No -Treatment Response Procedure Procedure Tolerated Well Tolerated Well Pain Scale: 0-10 Numeric Is Patient Pain Free? Yes Yes Laterality: Left - Great toe Type of Debridement: Excisional debridement Anesthesia Used: 5% Lidocaine Gel Depth: Down to and including healthy tissue, in the subcutaneous layer Percentage of wound debrided: 100 Instrument Used: 3mm curette Tissue Removed: Bioburden and nonviable tissue Severity: Fat Layer Exposed Amount of bleeding with debridement: Mild Bleeding Controlled with: Compression and gauze Patient tolerated procedure well Assessment/Plan Active Problems (Last Reviewed 12/11/18 @ 10:12 by Tiffany Victoria) Diabetic toe ulcer (Chronic) Diabetic neuropathy (Chronic) Diabetic neuropathy associated with diabetes mellitus due to underlying condition (Chronic) Decubitus ulcer of left foot, stage 3 (Chronic) Diabetes mellitus type 2, uncontrolled, with complications (Chronic) Type 2 diabetes mellitus without complication, with long-term current use of insulin (Chronic) Assessment: This is a 43-year-old male with known diabetes mellitus and peripheral neuropathy. He presented with an ulceration on the left great toe. This appears to be pressure related, likely due to his diabetic neuropathy and ill-fitting footwear. The patient has completed his antibiotic regimen. He has been advised to optimize his glycemic control. He has been also advised to optimize his nutritional intake. Offloading measures are to be implemented. The patient has been instructed to continue wearing his postoperative shoe. He has sought evaluation at [facility] in [place], specialists in fitting of podiatric shoes. He has also been evaluated by Dr. Hooper, cylindrical mixer, who is co-managing the patient, and has provided input as to the appropriate footwear. They have dispensed a Darco boot which the patient is now wearing. We are to continue the use of collagenase Santyl topically, which will be applied topically on a daily basis. The patient is to be instructed in the appropriate means of application. The aforementioned measures have resulted in significant improvement in the appearance of the patient's left great toe ulceration thus far. Patient has undergone a battery of diagnostic studies, results of which are as follows: White blood count 6.0, hemoglobin 15.2, hematocrit 43.5, platelets 255,000, glucose 216, BUN 11, creatinine 1.40, total protein 7.7, albumin 3.8, calcium 9.0, AST 40, alkaline phosphatase 53, ALT 97, sodium 138, potassium 4.1, chloride 103, serum prealbumin 28.7, hemoglobin A1c 8.1. An x-ray of the patient's left great toe reveals no evidence of fracture, dislocation, or significant degenerative disease. A noninvasive lower extremity arterial study performed on 12/21/2018 reveals no evidence of significant arterial occlusive disease in the lower extremities. There is, however, evidence of arterial calcification at ankle level on the left. As mentioned, the patient was evaluated by Dr. Hooper, cylindrical mixer, who made some modifications in the patient's shoe, and has arranged to order diabetic shoes for the patient. Patient is to return in 1 week for reassessment. Plan: We are to continue the use of collagenase Santyl topically. Offloading measures are to be continued, and have been discussed thoroughly with the patient. The patient is return in 1 week for reassessment. Serial debridements are anticipated. Patient has been advised to optimize his glycemic control. Optimization of the patient's nutritional intake has also been recommended. Patient is non-smoker. Influenza vaccine was not administered today. Patient weighs 297 pounds. He stands 6 feet 5 inches tall. His BMI is 35.2, and weight loss has been encouraged, with collaboration from his primary care physician.
[2019-01-11 08:15] VITALS: BP 143/79; PULSE 69; RESP 16; TEMP 35.3; BMI 35.2
--- NOTE | 2019-01-11 08:25 | HP.PCM_ITS ---
(1) Diabetic toe ulcer Status: Chronic Current Visit: Yes Qualifiers: Diabetes mellitus type: type 2 Laterality: left Code(s): E11.621 - Type 2 diabetes mellitus with foot ulcer; L97.509 - Non- pressure chronic ulcer of other part of unspecified foot with unspecified severity (2) Diabetic neuropathy Status: Chronic Current Visit: Yes Qualifiers: Diabetes mellitus type: type 2 Diabetes mellitus complication detail: diabetic polyneuropathy Qualified Code(s): E11.42 - Type 2 diabetes mellitus with diabetic polyneuropathy Code(s): E11.40 - Type 2 diabetes mellitus with diabetic neuropathy, unspecified (3) Diabetic neuropathy associated with diabetes mellitus due to underlying condition Status: Chronic Current Visit: Yes Qualifiers: Diabetes mellitus complication detail: diabetic polyneuropathy Qualified Code(s): E08.42 - Diabetes mellitus due to underlying condition with diabetic polyneuropathy Code(s): E08.40 - Diabetes mellitus due to underlying condition with diabetic neuropathy, unspecified (4) Decubitus ulcer of left foot, stage 3 Status: Chronic Current Visit: Yes Code(s): L89.893 - Pressure ulcer of other site, stage 3 (5) Bariatric surgery status Status: Chronic Current Visit: No Code(s): Z98.84 - Bariatric surgery status (6) Obesity (BMI 30-39.9) Status: Chronic Current Visit: No Code(s): E66.9 - Obesity, unspecified (7) Diabetes mellitus type 2, uncontrolled, with complications Status: Chronic Current Visit: Yes Code(s): E11.8 - Type 2 diabetes mellitus with unspecified complications; E11.65 - Type 2 diabetes mellitus with hyperglycemia (8) Gout Status: Chronic Current Visit: No Qualifiers: Code(s): M10.9 - Gout, unspecified (9) Left ankle pain Status: Chronic Current Visit: No Qualifiers: Chronicity: chronic Qualified Code(s): M25.572 - Pain in left ankle and joints of left foot; G89.29 - Other chronic pain Code(s): M25.572 - Pain in left ankle and joints of left foot (10) Hyperlipidemia associated with type 2 diabetes mellitus Status: Chronic Current Visit: No Code(s): E11.69 - Type 2 diabetes mellitus with other specified complication; E78.5 - Hyperlipidemia, unspecified (11) Hypertension, essential Status: Chronic Current Visit: No Code(s): I10 - Essential (primary) hypertension (12) Type 2 diabetes mellitus without complication, with long-term current use of insulin Status: Chronic Current Visit: Yes Code(s): E11.9 - Type 2 diabetes mellitus without complications; Z79.4 - long-term (current) use of insulin History of Present Illness Date of Service: 01/11/19 Chief Complaint: Left great toe ulceration History of Wound: This is a 43-year-old male who presented with an ulceration of his left great toe. The ulceration began as a blister, which was noted initially approximately 10 days prior to presentation. He was evaluated by his primary caregiver, who obtained cultures, which were positive for Staphylococcus aureus. The patient was subsequently placed on Bactrim and Flagyl orally, which have been completed. The patient is also known to have fractured his left fifth metatarsal in August 2018. He also has fractured his ankle in January 2018, which was undiagnosed until recently. Patient is diabetic, and blood sugars are said to run between 90 and 160 on a daily basis. Patient claims to have recently undergone diabetic counseling with a independent consultant. There has also been consideration of bariatric consultation in the recent past. He is known to suffer from diabetic peripheral neuropathy. The patient has recently been wearing a postoperative shoe for offloading purposes. Past Medical History Past Medical History: Chronic Problems (Last Reviewed 12/11/18 @ 10:12 by Tiffany Victoria) Diabetic toe ulcer (Chronic) Diabetic neuropathy (Chronic) Diabetic neuropathy associated with diabetes mellitus due to underlying condition (Chronic) Decubitus ulcer of left foot, stage 3 (Chronic) Bariatric surgery status (Chronic) Obesity (BMI 30-39.9) (Chronic) Diabetes mellitus type 2, uncontrolled, with complications (Chronic) Gout (Chronic) Left ankle pain (Chronic) Hyperlipidemia associated with type 2 diabetes mellitus (Chronic) Hypertension, essential (Chronic) Type 2 diabetes mellitus without complication, with long-term current use of insulin (Chronic) Surgical History: no surgical history Allergies/Adverse Reactions: Allergies amoxicillin [From Augmentin] Allergy (Severe, Verified 09/10/18 08:01) Unknown clavulanic acid [From Augmentin] Allergy (Severe, Verified 09/10/18 08:01) Unknown Home Medications: Ambulatory Orders Medication Instructions Recorded flash glucose scanning reader See Dose Instructions .ROUTE 04/07/18 .MEDSUPPLY #1 ea flash glucose sensor kit See Dose Instructions .ROUTE 04/07/18 .MEDSUPPLY #2 ea insulin regular human U-500 See Rx Instructions SC QACBREAK 05/19/18 concentrate 500 unit/mL(3 mL) #24 ml subcut pen amlodipine 5 mg tablet 5 mg PO DAILY #30 tab 05/28/18 fenofibrate 160 mg tablet 160 mg PO QDAY #30 tab 05/28/18 hydrochlorothiazide 25 mg tablet 25 mg PO QAM #30 tab 05/28/18 metformin 1,000 mg tablet 1,000 mg PO BID #60 tab 05/28/18 metoprolol succinate ER 50 mg 50 mg PO QDAY #30 tab 05/28/18 tablet,extended release 24 hr ramipril 10 mg capsule 10 mg PO QDAY #30 cap 05/28/18 - Family History Paternal Family History: Family History (Last Reviewed 12/11/18 @ 10:12 by Tiffany Victoria) Mother Asthma Hypertension Other Diverticulitis Family history of high cholesterol Glaucoma Heart disease Kidney disease Renal failure - - Patient's father is 63 years of age and has a history of hyperlipidemia. The patient's mother 63 years of age with a history of hypertension. Smoking Status: Former smoker Tobacco Use: Non-smoker Review of Systems Constitutional: Denies: Chills, Fever, Weight Change Eyes: Denies: Pain, Vision Change HEENT: Denies: Difficulty Hearing, Difficulty Swallowing, Sinus Congestion Cardiovascular: Denies: Chest Pain, Palpitations Respiratory: Denies: Cough, Shortness of Breath Gastrointestinal: Denies: Diarrhea, Nausea, Vomiting Genitourinary: Denies: Dysuria, Hematuria Endocrine: Denies: Heat/ Cold Intolerance, Polydipsia, Polyuria Hematologic/ Lymphatic: Denies: Easy Bruising, Easy Bleeding - Physical Exam Vital Signs Temp Pulse Resp BP 95.5 F L 69 16 143/79 H 01/11/19 08:15 01/11/19 08:15 01/11/19 08:15 01/11/19 08:15 General: Alert, Oriented x3, Cooperative, No apparent distress, Well developed, Well nourished HEENT: Atraumatic, PERRLA, EOMI, Normocephalic Oral: Moist Mucosa Neck: No JVD Lungs: Normal air movement Abdomen: Non-Distended Extremities: No clubbing, No cyanosis, No edema, No Calf Tenderness, - - Insertion on the left great toe now appears to be healed and epithelialized. There is no sign of infection or cellulitis. The underlying bony prominence persists. Skin: No rashes, No breakdown Wound Measurements and Assessment WC - Nurse 1 - General Ulcer Measurement Start: 12/21/18 09:35 Freq: Status: Active Protocol: Activity Type Activity Date Activity User E-Sign Co-Sign Detail Recorded Client Recorded Date Recorded By Document 01/11/19 08:15 [id number] 01/11/19 08:16 01/11/19 08:15 Wound Center Nurse 1 [Ulcer Assessment] 1-left great toe dorsal -Combined with other wound No -Current Size (cm) - Length 0 -Current Size (cm) - Width 0 -Current Size (cm) - Depth 0 -Total Square Cm 0 -Photo Taken Yes -Epithelialization Large 67-100% -Tunneling No -Undermining/Tunneling No -Circular Undermining No -Exudate Amt None Present -Wound Margin Flat & Intact -Granulation Amt None Present (0 %) -Slough/Fibrin No -Necrosis Amt None Present (0 %) -Structure Exposed N/A -Texture (Mariama-wound Skin Appearance) Assessed -Moisture (Mariama-wound Skin Appearance Assessed,Dry/ ) Scaly -Color (Mariama-wound Skin Appearance) Assessed -Temperature ([place]ari[place]-wound Skin No Abnormality Appearance) (Pt Warm) -Tenderness on Palpation ([place]ari[place]-wound No Skin Appearance) -Ulcer Cleansing Rinsed/ Irrigated with Saline -Foul Odor after Cleansing No [Edema Assessment] -Lower Limb Edema Present No Musculoskeletal: No Muscle Wasting Neurological: Cranial nerves II-XII grossly intact, Neuro grossly intact Psych/Mental Status: Normal Affect, Appropriate, Alert and oriented to time, place, person, mood and affect Debridement Note Post-Debridement Measurements/Treatment WC - Nurse 2 - General Ulcer CM Notes Start: 12/21/18 09:35 Freq: Status: Active Protocol: Activity Type Activity Date Activity User E-Sign Co-Sign Detail Recorded Client Recorded Date Recorded By Document 12/28/18 11:02 MW [id number] 12/28/18 11:07 MW Document 01/04/19 08:18 MW [id number] 01/04/19 08:22 MW 12/28/18 01/04/19 11:02 08:18 Wound Center Nurse 2 1-left great toe dorsal -Time 11:05 08:19 -Correct Patient Yes Yes -Correct Side, Site, Position Yes Yes -Correct Procedure Yes Yes -Procedure Performed Yes Yes -Type of Procedure Debridement Debridement -Clinical Debridement Subcutaneous Subcutaneous -Post Debridement Size (cm) - Length 0.4 0.3 -Post Debridement Size (cm) - Width 0.4 0.3 -Post Debridement Size (cm) - Depth 0.2 0.1 -Total Square Cm 0.16 0.09 -Wound/Ulcer Outcome Not Healed Not Healed -Ulcer Cleansing Rinsed/ Rinsed/ Irrigated with Irrigated with Saline Saline -Foul Odor after Cleansing No No -Bioengineered Tissue No No -Bleeding Controlled with Pressure Pressure -Offloading No No -Treatment Response Procedure Procedure Tolerated Well Tolerated Well Pain Scale: 0-10 Numeric Is Patient Pain Free? Yes Yes No debridement was completed today - The patient's wound appears to be totally healed and epithelialized. Assessment/Plan Active Problems (Last Reviewed 12/11/18 @ 10:12 by Tiffany Victoria) Diabetic toe ulcer (Chronic) Diabetic neuropathy (Chronic) Diabetic neuropathy associated with diabetes mellitus due to underlying condition (Chronic) Decubitus ulcer of left foot, stage 3 (Chronic) Diabetes mellitus type 2, uncontrolled, with complications (Chronic) Type 2 diabetes mellitus without complication, with long-term current use of insulin (Chronic) Assessment: This is a 43-year-old male with known diabetes mellitus and peripheral neuropathy. He presented with an ulceration on the left great toe. This appears to be pressure related, likely due to his diabetic neuropathy and ill-fitting footwear. The patient has completed his antibiotic regimen. He has been advised to optimize his glycemic control. He has been also advised to optimize his nutritional intake. Offloading measures are to be implemented. The patient has been instructed to continue wearing his postoperative shoe. He has sought evaluation at [facility] in [place], specialists in fitting of podiatric shoes. He has also been evaluated by Dr. Hooper, blending plant operator, who is co- managing the patient, and has provided input as to the appropriate footwear. They have dispensed a Darco boot which the patient is now wearing. Patient is also awaiting a special shoe which has been placed on ordered by his blending plant operator, Dr. Wunning. The patient has an appointment with his blending plant operator tomorrow. The patient has undergone a battery of diagnostic studies, results of which are as follows: White blood count 6.0, hemoglobin 15.2, hematocrit 43.5, platelets 255,000, glucose 216, BUN 11, creatinine 1.40, total protein 7.7, albumin 3.8, calcium 9.0, AST 40, alkaline phosphatase 53, ALT 97, sodium 138, potassium 4.1, chloride 103, serum prealbumin 28.7, hemoglobin A1c 8.1. An x-ray of the patient's left great toe reveals no evidence of fracture, dislocation, or significant degenerative disease. A noninvasive lower extremity arterial study performed on 12/21/2018 reveals no evidence of significant arterial occlusive disease in the lower extremities. There is, however, evidence of arterial calcification at ankle level on the left. As mentioned, the patient was evaluated by Dr. Hooper, blending plant operator, who has arranged to order diabetic shoes for the patient. Patient is to return in 2 weeks for reassessment. Plan: Offloading measures are to be continued, and have been discussed thoroughly with the patient. He is collaborating with his blending plant operator, Dr. Hooper, to assure proper offloading footwear. The patient is return in 2 weeks for reassessment, to assure that his ulceration remains healed. The patient has been advised to optimize his glycemic control. Optimization of the patient's nutritional intake has also been recommended. Patient is non-smoker. Influenza vaccine was not administered today. Patient weighs 297 pounds. He stands 6 feet 5 inches tall. His BMI is 35.2, and weight loss has been encouraged, with collaboration from his primary care physician.
[2019-01-25 08:07] VITALS: BP 164/91; PULSE 71; RESP 16; BMI 35.2
== END 2019-01-17 23:59 ==
LOC: WC 08:00
PROVIDERS: Family Provider Family Medicine; PCP Family Medicine; Referring Provider Surgery; Visit Provider Surgery
DX: E11.621 Type 2 diabetes mellitus with foot ulcer (principal); L97.522 Non-pressure chronic ulcer of other part of left foot with fat layer exposed; E11.65 Type 2 diabetes mellitus with hyperglycemia; E78.5 Hyperlipidemia, unspecified; I10 Essential (primary) hypertension; E66.9 Obesity, unspecified; E11.42 Type 2 diabetes mellitus with diabetic polyneuropathy; Z79.899 Other long term (current) drug therapy; Z79.891 Long term (current) use of opiate analgesic; Z79.4 Long term (current) use of insulin; Z98.84 Bariatric surgery status; Z68.35 Body mass index [BMI] 35.0-35.9, adult
CPT/HCPCS: 11042; 93923; 99212; G0463

== ENCOUNTER 2019-01-25 08:13 | Outpatient (RCR) | payer OTHER, SELFPAY ==
[2019-01-18 01:06] VITALS: BP 143/79; PULSE 69; RESP 16; TEMP 35.3
--- NOTE | 2019-01-25 08:26 | HP.PCM_ITS ---
(1) Diabetic toe ulcer Status: Chronic Current Visit: Yes Qualifiers: Diabetes mellitus type: type 2 Laterality: left Non-pressure ulcer stage: with fat layer exposed Qualified Code(s): E11.621 - Type 2 diabetes mellitus with foot ulcer; L97.522 - Non-pressure chronic ulcer of other part of left foot with fat layer exposed Code(s): E11.621 - Type 2 diabetes mellitus with foot ulcer; L97.509 - Non- pressure chronic ulcer of other part of unspecified foot with unspecified severity (2) Diabetic neuropathy Status: Chronic Current Visit: Yes Qualifiers: Diabetes mellitus type: type 2 Diabetes mellitus complication detail: diabetic polyneuropathy Qualified Code(s): E11.42 - Type 2 diabetes mellitus with diabetic polyneuropathy Code(s): E11.40 - Type 2 diabetes mellitus with diabetic neuropathy, unspecified (3) Diabetic neuropathy associated with diabetes mellitus due to underlying condition Status: Chronic Current Visit: Yes Qualifiers: Diabetes mellitus complication detail: diabetic polyneuropathy Code(s): E08.40 - Diabetes mellitus due to underlying condition with diabetic neuropathy, unspecified (4) Decubitus ulcer of left foot, stage 3 Status: Chronic Current Visit: Yes Code(s): L89.893 - Pressure ulcer of other site, stage 3 (5) Bariatric surgery status Status: Chronic Current Visit: No Code(s): Z98.84 - Bariatric surgery status (6) Obesity (BMI 30-39.9) Status: Chronic Current Visit: No Code(s): E66.9 - Obesity, unspecified (7) Diabetes mellitus type 2, uncontrolled, with complications Status: Chronic Current Visit: Yes Code(s): E11.8 - Type 2 diabetes mellitus with unspecified complications; E11.65 - Type 2 diabetes mellitus with hyperglycemia (8) Gout Status: Chronic Current Visit: No Qualifiers: Code(s): M10.9 - Gout, unspecified (9) Left ankle pain Status: Chronic Current Visit: No Qualifiers: Code(s): M25.572 - Pain in left ankle and joints of left foot (10) Hyperlipidemia associated with type 2 diabetes mellitus Status: Chronic Current Visit: No Code(s): E11.69 - Type 2 diabetes mellitus with other specified complication; E78.5 - Hyperlipidemia, unspecified (11) Hypertension, essential Status: Chronic Current Visit: No Code(s): I10 - Essential (primary) hypertension (12) Type 2 diabetes mellitus without complication, with long-term current use of insulin Status: Chronic Current Visit: No Code(s): E11.9 - Type 2 diabetes mellitus without complications; Z79.4 - terminal operations supervisor (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 The ulceration began as a blister, which was noted initially approximately 10 days prior to presentation. He was evaluated by his primary caregiver, who obtained cultures, which were positive for Staphylococcus aureus. The patient was subsequently placed on Bactrim and Flagyl orally, which have been completed. The patient is also known to have fractured his left fifth metatarsal in August 2018. He also has fractured his ankle in January 2018, which was undiagnosed until recently. Patient is diabetic, and blood sugars are said to run between 90 and 160 on a daily basis. Patient claims to have recently undergone diabetic counseling with a cnc applications engineer. There has also been consideration of bariatric consultation in the recent past. He is known to suffer from diabetic peripheral neuropathy. The patient has recently been wearing a postoperative shoe for offloading purposes. Past Medical History Past Medical History: Chronic Problems (Last Reviewed 12/11/18 @ 10:12 by iTffany Victoria) Diabetic toe ulcer (Chronic) Diabetic neuropathy (Chronic) Diabetic neuropathy associated with diabetes mellitus due to underlying condition (Chronic) Decubitus ulcer of left foot, stage 3 (Chronic) Bariatric surgery status (Chronic) Obesity (BMI 30-39.9) (Chronic) Diabetes mellitus type 2, uncontrolled, with complications (Chronic) Gout (Chronic) Left ankle pain (Chronic) Hyperlipidemia associated with type 2 diabetes mellitus (Chronic) Hypertension, essential (Chronic) Type 2 diabetes mellitus without complication, with long-term current use of insulin (Chronic) Surgical History: no surgical history Allergies/Adverse Reactions: Allergies amoxicillin [From Augmentin] Allergy (Severe, Verified 09/10/18 08:01) Unknown clavulanic acid [From Augmentin] Allergy (Severe, Verified 09/10/18 08:01) Unknown Home Medications: Ambulatory Orders Medication Instructions Recorded flash glucose scanning reader See Dose Instructions .ROUTE 04/07/18 .[employer] #1 ea flash glucose sensor kit See Dose Instructions .ROUTE 04/07/18 .MEDSUPPLY #2 ea insulin regular human U-500 See Rx Instructions SC QACBREAK 05/19/18 concentrate 500 unit/mL(3 mL) #24 ml subcut pen amlodipine 5 mg tablet 5 mg PO DAILY #30 tab 05/28/18 fenofibrate 160 mg tablet 160 mg PO QDAY #30 tab 05/28/18 hydrochlorothiazide 25 mg tablet 25 mg PO QAM #30 tab 05/28/18 metformin 1,000 mg tablet 1,000 mg PO BID #60 tab 05/28/18 metoprolol succinate ER 50 mg 50 mg PO QDAY #30 tab 05/28/18 tablet,extended release 24 hr ramipril 10 mg capsule 10 mg PO QDAY #30 cap 05/28/18 - Family History Paternal Family History: Family History (Last Reviewed 12/11/18 @ 10:12 by Tiffany Victoria) Mother Asthma Hypertension Other Diverticulitis Family history of high cholesterol Glaucoma Heart disease Kidney disease Renal failure - - Patient's father is 63 years of age and has a history of hyperlipidemia. The patient's mother 63 years of age with a history of hypertension. Smoking Status: Former smoker Tobacco Use: Non-smoker Review of Systems Constitutional: Denies: Chills, Fever, Weight Change Eyes: Denies: Pain, Vision Change HEENT: Denies: Difficulty Hearing, Difficulty Swallowing, Sinus Congestion Cardiovascular: Denies: Chest Pain, Palpitations Respiratory: Denies: Cough, Shortness of Breath Gastrointestinal: Denies: Diarrhea, Nausea, Vomiting Genitourinary: Denies: Dysuria, Hematuria Endocrine: Denies: Heat/ Cold Intolerance, Polydipsia, Polyuria Hematologic/ Lymphatic: Denies: Easy Bruising, Easy Bleeding - Physical Exam Vital Signs Temp Pulse Resp BP 95.5 F L 69 16 143/79 H 01/18/19 01:06 01/18/19 01:06 01/18/19 01:06 01/18/19 01:06 General: Alert, Oriented x3, Cooperative, No apparent distress, Well developed, Well nourished HEENT: Atraumatic, PERRLA, EOMI, Normocephalic Oral: Moist Mucosa Neck: No JVD Lungs: Normal air movement Abdomen: Non-Distended Extremities: No clubbing, No cyanosis, No edema, No Calf Tenderness, - - The patient's left great toe ulceration is now completely healed and epithelialized. There are no other wounds or ulcerations. There are no other significant skin changes. There is no sign of infection or cellulitis. Skin: No rashes, No breakdown Wound Measurements and Assessment - Nurse 2 - General Ulcer CM Notes Start: 01/25/19 08:23 Freq: Status: Active Protocol: Activity Type Activity Date Activity User E-Sign Co-Sign Detail Recorded Client Recorded Date Recorded By Document 01/25/19 08:23 [id number] 01/25/19 08:24 01/25/19 08:23 Wound Center Nurse 2 [Procedure/Treatment] 1-left great toe dorsal -Correct Patient No -Correct Side, Site, Position No -Correct Procedure No -Procedure Performed No -Post Debridement Size (cm) - Length 0 -Post Debridement Size (cm) - Width 0 -Post Debridement Size (cm) - Depth 0 -Total Square Cm 0 -Wound/Ulcer Outcome Healed- Epithelialized [See Physician Procedure note for Specifics] Pain Scale: 0-10 Numeric [Pain] -Is Patient Pain Free? Yes Musculoskeletal: No Muscle Wasting Neurological: Cranial nerves II-XII grossly intact, Neuro grossly intact Psych/Mental Status: Normal Affect, Appropriate, Alert and oriented to time, place, person, mood and affect Debridement Note Post-Debridement Measurements/Treatment - Nurse 2 - General Ulcer CM Notes Start: 01/25/19 08:23 Freq: Status: Active Protocol: Activity Type Activity Date Activity User E-Sign Co-Sign Detail Recorded Client Recorded Date Recorded By Document 01/25/19 08:23 [id number] [id number] 01/25/19 08:24 01/25/19 08:23 Wound Center Nurse 2 1-left great toe dorsal -Correct Patient No -Correct Side, Site, Position No -Correct Procedure No -Procedure Performed No -Post Debridement Size (cm) - Length 0 -Post Debridement Size (cm) - Width 0 -Post Debridement Size (cm) - Depth 0 -Total Square Cm 0 -Wound/Ulcer Outcome Healed- Epithelialized Pain Scale: 0-10 Numeric Is Patient Pain Free? Yes No debridement was completed today - The patient's wound is now completely healed and epithelialized. Assessment/Plan Active Problems (Last Reviewed 12/11/18 @ 10:12 by Tiffany Victoria) Diabetic toe ulcer (Chronic) Diabetic neuropathy (Chronic) Diabetic neuropathy associated with diabetes mellitus due to underlying condition (Chronic) Decubitus ulcer of left foot, stage 3 (Chronic) Diabetes mellitus type 2, uncontrolled, with complications (Chronic) Assessment: This is a 43-year-old male with known diabetes mellitus and peripheral neuropathy. He presented with an ulceration on the left great toe. This appears to be pressure related, likely due to his diabetic neuropathy and ill-fitting footwear. The patient has completed his antibiotic regimen. He has been advised to optimize his glycemic control. He has been also advised to optimize his nutritional intake. Offloading measures are to be implemented. The patient has been instructed to continue wearing his postoperative shoe. He has sought evaluation at [facility] in [place], specialists in fitting of podiatric shoes. He has also been evaluated by Dr. Hooper, bobcat driver/labor, who is co- managing the patient, and has provided input as to the appropriate footwear. The patient has undergone a battery of diagnostic studies, results of which are as follows: White blood count 6.0, hemoglobin 15.2, hematocrit 43.5, platelets 255,000, glucose 216, BUN 11, creatinine 1.40, total protein 7.7, albumin 3.8, calcium 9.0, AST 40, alkaline phosphatase 53, ALT 97, sodium 138, potassium 4.1, chloride 103, serum prealbumin 28.7, hemoglobin A1c 8.1. An x-ray of the patient's left great toe reveals no evidence of fracture, dislocation, or significant degenerative disease. A noninvasive lower extremity arterial study performed on 12/21/2018 reveals no evidence of significant arterial occlusive disease in the lower extremities. There is, however, evidence of arterial calcification at ankle level on the left. As mentioned, the patient was evaluated by Dr. Hooper, bobcat driver/labor, who has arranged for the patient to obtain the appropriate offloading diabetic shoes. The patient's left great toe ulceration is now completely healed and epithelialized. He is to be discharged. Plan: The patient's left great toe ulceration is now completely healed and ep ithelialized. He is to be discharged. Offloading measures are to be continued, and have been discussed thoroughly with the patient. He is collaborating with his bobcat driver/labor, Dr. Hooper, to assure proper offloading footwear. It is anticipated that the patient will continue under the care of Dr. Hooper for the long-term, to assure proper diabetic foot care and surveillance. Patient is to be discharged from the [facility] at this time, and will follow-up henceforth on an as-needed basis. The patient has been advised to optimize his glycemic control. Patient is non-smoker. Influenza vaccine was not administered today. Patient weighs 297 pounds. He stands 6 feet 5 inches tall. His BMI is 35.2, and weight loss has been encouraged, with collaboration from his primary care physician.
== END 2019-02-17 23:59 ==
LOC: WC 08:13
PROVIDERS: Family Provider Family Medicine; PCP Family Medicine; Referring Provider Surgery; Visit Provider Surgery
DX: Z09 Encounter for follow-up examination after completed treatment for conditions other than malignant neoplasm (principal); E11.65 Type 2 diabetes mellitus with hyperglycemia; E11.42 Type 2 diabetes mellitus with diabetic polyneuropathy; Z98.84 Bariatric surgery status; E66.9 Obesity, unspecified; Z68.35 Body mass index [BMI] 35.0-35.9, adult; Z71.3 Dietary counseling and surveillance; E78.5 Hyperlipidemia, unspecified; I10 Essential (primary) hypertension; Z79.899 Other long term (current) drug therapy; Z79.84 Long term (current) use of oral hypoglycemic drugs; Z87.891 Personal history of nicotine dependence
CPT/HCPCS: 99212; G0463

== ENCOUNTER 2019-02-16 17:30 | Outpatient (RCR) | payer OTHER, SELFPAY ==
[2018-12-21 09:35] VITALS: BMI 35.2
[2019-01-04 08:10] VITALS: BMI 35.2
--- NOTE | 2019-01-04 10:24 | HP.PTEVAL ---
Patient's Visit Information ALEXIS LACKEY is a 43 year old M referred to Physical Therapy by Zbigniew Hooper DPM with a diagnosis of Healed 5th met fx. Date of Evaluation: 01/04/19 Physical Therapist: MOLINA Daley - Visit Plan Frequency: 2x /Week Duration: 4 Weeks Plan: +++Be careful of L foot ulcer+++. 2X/ week for 4 weeks for L ankle AROM, stretching, joint mobs to improve flexion, gait training, strengthening, with HEP - Subjective Findings: Pt reports that in January because his ankle was swollen and thought it was gout. In August was wallking at work and broke 5th met. On second visit he touched his ankle and he was in pain and did x-ray and found fx from Jan. The 5th met is higher and causes inversion and he is walking on the outside of his foot and he has developed an ulcer. Ulcer is still there and down to .2cm and has come a long way. His ankle Fx healed as he was in the boot for that long. He is definitly walking weird. He is able to go up and down the stairs barefoot. Dr Hooper put some padding inside his post op shoe and he goes tomm for another post of shoe and has ortho shoe on order. He is on his feet at work..... - Pain L foot Pain Intensity (Out of 10): 1 Pain Intensity Range: 5 - Objective Gait: Walks with decrease stance time on the L and walks on the lateral side of his L foot. L ankle AROM: -6 degrees from neutral. 59 degrees PF. 8 degrees EV. 20 degrees INV. R ankle AROM: 4DF, 40 PF, 35 INV, 10 EV. SLB L 10 seconds. SLB R 25 seconds. Tight L HS and gastroc ( worse on L than R). MMT of L ankle: DF, PF, INV, EV 4-/5 and R all 4+/5 - Goals Goal 1:: I HEP Goal Time Frame: 2-4 Weeks Goal 2:: Increase L ankle AROM to 5 degrees DF Goal Time Frame: 2-4 Weeks Goal 3:: Walk with normal gait pattern and less lateral side of foot gait Goal Time Frame: 2-4 Weeks - Rehabilitation Potential Rehabilitation Potential: Good - Anticipated Interventions Patient/Client Instruction: Educate patient on: Condition, Plan of Care For the Purpose of:: To decrease pain, To increase ROM, To improve nutrient delivery to tissue, To improve muscle performance and motor function, To improve ability to perform ADL's, To increase tolerance to activity/condition/position, To improve performance and independence with ADL's, To improve ability of physical actions for home/community/work/leisure, To improve gait and locomotor functions, To improve health of tissue, To decrease soft tissue restriction, To increase flexibility/ROM, To improve balance Therapeutic Exercise to Include: Strength training, Balance training, Coordination, Flexibilty training, Gait and locomotor training, Passive ROM, Active ROM For the Purpose of:: To decrease pain, To increase ROM, To improve nutrient delivery to tissue, To improve muscle performance and motor function, To improve ability to perform ADL's, To increase tolerance to activity/condition/position, To improve ability of physical actions for home/community/work/leisure, To improve gait and locomotor functions, To improve health of tissue, To decrease soft tissue restriction, To increase flexibility/ROM, To improve balance Functional Training to Include: Gait training For the Purpose of:: To improve gait and locomotor functions Manual Therapy Techniques to Include: Mobilization, Passive ROM For the Purpose of:: To increase ROM Thank you for the opportunity to evaluate your patient. For Medicare and Medicare HMO plans, please review the plan of care and approve it. It will need to be FAXED BACK to us at [phone] for Medicare purposes. For Medicare only, by signing this I certify the plan of care. Please let me know if there are questions or concerns regarding this plan of care. Physician Signature: Date:
--- NOTE | 2019-02-16 18:02 | HP.PTDCSUM ---
HP - PT D/C Summary It has been my pleasure to treat ALEXIS LACKEY under orders from Zbigniew Hooper DPM, for the diagnosis of Healed 5th met fx for a total of 7 visit(s). Discharge Date: 02/16/19 Please see the following information for a summary of their discharge status. - Subjective Subjective: Saw yesterday and he feels that the pt is doing well. Dr said ok for pt to continue with HEP. He reports that he feels it if he does not do his exercises throughout the day. He got his new shoes yesterday but has not tried them yet. He feels that his new shoes are helping with him walking on the lateral side of his foot. - Pain L foot Pain Intensity (Out of 10): 0 - Overall Improvement % Improvement: 90 - Objective Objective/Function: Gait: Walks slightly on his later side of his foot but his new shoes are helping to correct that. SLB on the L 4 seconds. Slant Board stretch 30 sec X 3. 9 degrees DF on the L. Able to walk fw, bw and on heels and toes - Goals Goal 1:: I HEP Goal Progress: Goal Met Goal 2:: Increase L ankle AROM to 5 degrees DF Goal Progress: Goal Met Goal 3:: Walk with normal gait pattern and less lateral side of foot gait Goal Progress: Goal Met - Plan Plan: DC PT to HEP - D/C Information Discharge Comments: DC PT to HEP If there are questions or concerns regarding this patient's physical therapy, please feel free to call me at [phone]. Thank you for the referral of this patient. Sincerely, Cat Harvey, MPT
== END 2019-02-16 19:00 | disposition home or self-care (01) ==
LOC: PT 17:30
PROVIDERS: Family Provider Family Medicine; PCP Family Medicine; Referring Provider Podiatrist; Visit Provider Podiatrist
DX: Z87.81 Personal history of (healed) traumatic fracture (principal)
CPT/HCPCS: 97110; 97161; 97530

== ENCOUNTER → 2019-09-15 08:34 | Outpatient (CLI) | payer OTHER, SELFPAY ==
[2019-05-26 15:38] VITALS: BMI 35.2
[2019-09-15 10:39] LABS: ALB/GLOB Ratio 1.1 RATIO (0.9-2.4); AST(SGOT) 17 U/L (15-37); Alanine Aminotransfer ALT/SGPT 36 U/L (16-61); Albumin, Serum 3.6 g/dL (3.2-5.0); Alkaline Phosphatase 55 U/L (45-117); Anion Gap 4 (5-15); BUN 14 mg/dL (7-18); BUN/Creat Ratio 15.4 RATIO (10-20); Calcium,Total 9.4 mg/dL (8.5-10.1); Chloride 103 mmol/L (98-107); Cholesterol 116 mg/dL (200); Creatinine, Serum 0.91 mg/dL (0.70-1.30); EST Glomerular Filtration Rate 96 mL/min (>60); Est Glom Filt Rate - Afr Amer 116 mL/min (>60); Globulin 3.3 g/dL (2.2-4.2); Glucose 134 mg/dL (74-106); High Density Lipoprotein 45 mg/dL; Potassium 3.8 mmol/L (3.5-5.1); Protein, Total 6.9 g/dL (6.4-8.2); Sodium Level 139 mmol/L (136-145); Triglycerides 82 mg/dL; Very Low Density Lipoprotein 16 mg/dL (5-40)
== END ==
PROVIDERS: PCP Family Medicine; Referring Provider Family Medicine; Visit Provider Family Medicine
DX: K76.0 Fatty (change of) liver, not elsewhere classified (principal); E11.65 Type 2 diabetes mellitus with hyperglycemia; Z79.4 Long term (current) use of insulin
CPT/HCPCS: 36415; 80053; 80061

== ENCOUNTER → 2020-06-11 15:33 | Outpatient (CLI) | payer OTHER, SELFPAY ==
[2019-05-26 15:38] VITALS: BMI 35.2
--- NOTE | 2020-06-11 15:50 | RAD_ITS ---
STUDY: X-RAY - LEFT ANKLE REASON FOR EXAM: Male, 44 years old. FRACTURE.. TWISTED ANKLE AND HAD AN AVULSION FX IN 2018 TECHNIQUE: 4 view(s) of the ankle. COMPARISON: 10/13/2018. FINDINGS: No acute fracture or dislocation. Stable, well-corticated chronic avulsion fracture fragment inferior to the medial malleolus. Stable avulsion fracture fragment lateral to the talus. Joint spaces are well-maintained. No demonstrated ankle joint effusion. Small posterior and plantar calcaneal spurs. Dorsal tarsometatarsal spurring. No soft tissue swelling. Atherosclerotic vascular calcification in the ankle. RAD/Ankle min 3 Views IMPRESSION: No acute findings. Electronically Signed: Manuela Viramontes MD at 16:59 EST Tel , Service support ,
--- NOTE | 2020-06-11 15:50 | RAD_ITS ---
STUDY: X-RAY - LEFT FOOT CLINICAL: Male, 44 years old. FRACTURE... 2 YEARS AGO. FOLLOW UP. INJURY WAS TO 5TH METATARSAL. TECHNIQUE: 4 view(s) of the foot. COMPARISON: 11/22/2018. FINDINGS: No acute fracture or dislocation. Healed fifth metatarsal fracture with bone remodeling and posttraumatic deformity. Periosteal reaction and remodeling of the fourth metatarsal. Joint spaces are well maintained. Specifically, fifth tarsometatarsal joint is unremarkable. Soft tissues are unremarkable. RAD/Foot min 3 Views IMPRESSION: Healed fifth metatarsal fracture with posttraumatic deformity. Electronically Signed: Manuela Viramontes MD at 17:01 EST Tel , Service support ,
== END ==
PROVIDERS: PCP Family Medicine; Referring Provider Podiatrist; Visit Provider Podiatrist
DX: S92.353A Displaced fracture of fifth metatarsal bone, unspecified foot, initial encounter for closed fracture (principal); S82.892A Other fracture of left lower leg, initial encounter for closed fracture
CPT/HCPCS: 73610; 73630

== ENCOUNTER 2021-07-29 08:15 | Outpatient (CLI) | payer OTHER, SELFPAY ==
[2021-07-29 08:56] LABS: Microalbumin:Creatinine Ratio 147.2 mg/g CRE (<30 mg/g CRE)
[2021-07-29 09:21] LABS: ALB/GLOB Ratio 1.1 RATIO (0.9-2.4); AST(SGOT) 32 U/L (15-37); Alanine Aminotransfer ALT/SGPT 60 U/L (16-61); Albumin, Serum 3.8 g/dL (3.2-5.0); Alkaline Phosphatase 84 U/L (45-117); Anion Gap 4 (5-15); BUN 15 mg/dL (7-18); BUN/Creat Ratio 15.1 RATIO (10-20); Calcium,Total 9.2 mg/dL (8.5-10.1); Chloride 104 mmol/L (98-107); Cholesterol 123 mg/dL (200); EST Glomerular Filtration Rate 86 mL/min (>60); Est Glom Filt Rate - Afr Amer 104 mL/min (>60); Globulin 3.6 g/dL (2.2-4.2); Glucose 181 mg/dL (74-106); High Density Lipoprotein 40 mg/dL; Potassium 4.2 mmol/L (3.5-5.1); Protein, Total 7.4 g/dL (6.4-8.2); Sodium Level 138 mmol/L (136-145); Triglycerides 172 mg/dL; Very Low Density Lipoprotein 34 mg/dL (5-40)
[2021-07-29 10:00] LABS: Hepatitis C Antibody Non-Reactive (Nonreactive)
== END 2021-07-29 23:59 | disposition home or self-care (01) ==
LOC: LAB 08:16
PROVIDERS: PCP Family Medicine; Referring Provider Family Medicine; Visit Provider Family Medicine
DX: E11.65 Type 2 diabetes mellitus with hyperglycemia (principal); Z79.4 Long term (current) use of insulin
CPT/HCPCS: 36415; 80053; 80061; 82043; 82570; 86803

== ENCOUNTER → 2021-10-25 | Outpatient (CLI) | payer OTHER, SELFPAY | END | disposition home or self-care (01) | PROVIDERS: Visit Provider Nurse Practitioner | DX: E11.621 Type 2 diabetes mellitus with foot ulcer (principal); L97.522 Non-pressure chronic ulcer of other part of left foot with fat layer exposed; E11.42 Type 2 diabetes mellitus with diabetic polyneuropathy | CPT/HCPCS: 87070; 87075; 87077; 87186; 87205 ==

== ENCOUNTER 2021-11-13 14:15 | Outpatient (RCR) | payer OTHER, SELFPAY ==
[2021-10-30 10:15] VITALS: BP 143/61; PULSE 72; RESP 18; TEMP 36.3; BMI 28.9
--- NOTE | 2021-10-30 19:37 | PCM.CONS.GEN ---
Assessment & Plan Assessment/Plan (1) Chronic ulcer of right foot with fat layer exposed: (2) Hammer toe of right foot: (3) Type 2 diabetes mellitus with diabetic polyneuropathy: PLAN: Plan I reviewed and discussed his case today. Debridement was performed today as noted in the clinical panel to all of the ulcer site. Procedure- Location: right second toe (pre debridement measures 1.2 x 0.8 x 0.1 cm and post debridement 1.3 x 0.9 x 0.1 cm) Excisional debridement performed Anesthesia: 5% lidocaine plain Debridement layer: subcutaneous Amount of debridement: 100% Instrumentation used: 15 blade Tissue debrided: fibrous, devitalized subcutaneous, biofilm, slough Exposed tissue: fat layer Bleeding: mild Hemostasis controlled: pressure The patient tolerated the procedure well The following work up and care recommendations were made: Dressing: Santyl applied nickel thickness daily Wash: Antibacterial soap and water Tissue growth optimization: Advanced wound healing product will be considered if the wound enlarges or if there is lack of healing Offload: Order provided for surgical shoe with dual density Plastizote offloading liners to create a pocket to keep pressure off of the ulcer site. To walk on heel. 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 there are no local signs infection today and he was advised to complete his 14-day course of antibiotics and to monitor for return of local infection or systemic illness Diagnostic data: Updated x-rays and labs will be considered if lack of healing is noted. Pain: This is not noted today due to his neuropathic status Host factors: He has diabetes with neuropathy and history of bariatric surgery. I recommend nutritional supplementation to optimize healing. I answered all the patient's questions. To return to the wound healing center in 1 week or call sooner if the patient has any questions or concerns. 30 minutes was spent on this encounter. This included face to face and non face to face care including preparing for the visit, reviewing the history, performing the exam, counseling and providing education to the patient, family, or caregiver, ordering medications/test/ procedures if indicated as documented, communicating with other healthcare providers, documenting information in the medical record, interpreting / sharing this information when indicated as documented, and care coordination. Note: [employer] speech recognition residential support specialist software was used to create portions of this document. Sound-alike and misspelled words, as well as other residential support specialist errors may be contained in the documentation. HPI Consult Data Date of Consult: 10/30/21 HPI Narrative Reason for Consultation: Right second toe ulcer HPI Narrative: ALEXIS LACKEY, is a 45 M who presents to the wound healing center today for evaluation of toe ulcer with an onset of 1 week ago after he visited a water park and was walking around. He does have a history of prior ulcers and was seen at the wound healing center. His last vascular study was performed in 2019. His last A1c on file was 7%. He had prior Santyl and Aquacel at home and has been changing the dressing with these items. He already obtained an x-ray. A culture was obtained and he was started on Levaquin 14-day course with his provider and nurse practitioner, Christi Morse. He is still in the middle of completing this. His redness has resolved to the toe and he denies fever, chill, nausea, vomiting. [facility] Medical History (Updated 11/04/21 @ 11:[address] Jill Schroeder, DP) Bone fracture Diabetes type 2, controlled Elevated liver enzymes Fatty liver frozen shoulder,r arm High cholesterol HTN (hypertension) Neuropathy Seasonal allergies Home Medications blood sugar diagnostic (OneTouch Verio test strips) #10 ea 02/11/19 [History Last Taken Unknown] blood-glucose meter (OneTouch Verio Meter) #1 ea 02/11/19 [History Last Taken Unknown] cholecalciferol (vitamin D3) 1,250 mcg (50,000 unit) capsule 50,000 unit PO QWEEK #12 caps 03/08/19 [Rx Last Taken Unknown] metoprolol succinate 50 mg tablet,extended release 24 hr 50 mg PO DAILY 03/08/19 [History Last Taken Unknown] metformin 500 mg tablet 500 mg PO BID #180 tabs 05/26/19 [Rx Last Taken Unknown] levofloxacin 500 mg tablet 500 mg PO DAILY #14 tabs 10/28/21 [Rx Last Taken Unknown] Allergy/AdvReac Type Severity Reaction Status Date / Time amoxicillin [From Augmentin] Allergy Severe Unknown Verified 10/30/21 10:36 clavulanic acid Allergy Severe Unknown Verified 10/30/21 10:36 [From Augmentin] Penicillins Allergy Unknown Hives Verified 10/30/21 10:36 Family History Mother Asthma Hypertension Father Hypertension Grandmother Cancer Unknown Arthritis Diabetes Other Diverticulitis Family history of high cholesterol Glaucoma Heart disease Kidney disease Renal failure Surgical History History of liver biopsy Social History Smoking Status: Former smoker alcohol intake: never substance use type: does not use Physical Exam Const alert and oriented x3 General Appearance: cooperative HEENT normocephalic Extremity Extremity Narrative: No calf tenderness Diminished pulses Muscle wasting noted Dorsal traction of lesser digits bilateral lower extremities No bogginess or fluctuance right foot General Extremity: edema and no tenderness to palpation of joints or extremities; Negative for cyanosis Skin Skin Narrative: no purulence, no streaking, no odor, no infection Erythema resolved right foot. No loosening of nails. Skin discontinuity superficial with granular and minimal fibrous tissue without probe to deep tissues or necrosis There is preulcerative pressure changes to the third right distal toe and also to the left second distal toe without ulcer or infection General Skin Exam: Negative for erythema Neuro Neuro Narrative: lack of normal epicritic sensation via light touch is consistent with neuropathy status Psych cooperative and affect normal
[2021-11-06 10:33] VITALS: BP 183/89; PULSE 55; RESP 20; TEMP 37; BMI 28.9
--- NOTE | 2021-11-06 11:11 | PN.PCM_ITS ---
History of Present Illness Date of Service: 11/06/21 Chief Complaint: Left great toe ulceration History of Wound: This is a 45-year-old male who is following up for right second toe ulcer. He is known to suffer from diabetic peripheral neuropathy also. The patient has recently been wearing a postoperative shoe for offloading purposes within a fabricated offloading pocket. He is still in the process of scheduling his updated vascular studies. He changes his dressing with Santyl. He denies redness, fever, chill, nausea, vomiting or odor. He thinks it is improving. Progress of Wound: Improving Objective Data Objective Data Vital Signs: Vital Signs Temp Pulse Resp BP 98.6 F 55 L 20 H 183/89 H 11/06/21 10:33 11/06/21 10:33 11/06/21 10:33 11/06/21 10:33 Weight: 110.644 kg Body Mass Index (BMI) 28.9 Physical Exam Const alert and oriented x3 General Appearance: cooperative HEENT normocephalic Extremity Extremity Narrative: No calf tenderness Diminished pulses Muscle wasting noted Dorsal traction of lesser digits bilateral lower extremities No bogginess or fluctuance right foot General Extremity: edema and no tenderness to palpation of joints or extremities; Negative for cyanosis Skin Skin Narrative: no purulence, no streaking, no odor, no infection Erythema resolved right foot. No loosening of nails. Skin discontinuity superficial with granular and minimal fibrous tissue without probe to deep tissues or necrosis The ulcer is a superficial granular base with peripheral epithelialization noted General Skin Exam: Negative for erythema Neuro Neuro Narrative: lack of normal epicritic sensation via light touch is consistent with neuropathy status Psych cooperative and affect normal Debridement Note Debridement Note Wound debrided: Distal second toe Laterality: Right Wound Grade/Stage: 1 Type of Debridement: Excisional debridement Anesthesia Used: 4% Lidocaine Solution Depth: in the subcutaneous layer Percentage of wound debrided: 100 Instrument Used: #15 blade Tissue Removed: fibrous, devitalized subcutaneous, biofilm, slough Severity: Fat Layer Exposed Amount of bleeding with debridement: Mild Bleeding Controlled with: Pressure Patient tolerated procedure: Patient tolerated procedure well Post-Debridement Measurements and Additional Note: Post-Debridement Measurements/Treatment DAVIN - Nurse 1 - General Ulcer Assessment Start: 10/30/21 10:15 Freq: Status: Active Protocol: MONI Activity Type Activity Date Activity User E-sign Co-sign Detail Recorded Client Recorded Date Recorded By Document 10/30/21 10:15 DL [id number] 10/30/21 10:33 DL Document 11/06/21 10:33 DL [id number] 11/06/21 10:38 DL 10/30/21 11/06/21 10:15 10:33 WC - Today's Visit Information Type of service Initial Visit Follow-up Visit (Physician/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 CONTROLS REPAIRER SUPERVISOR ) Arrival Mode Ambulatory Ambulatory Transfer Assistance None None Patient Identification Verified (Name & Yes Yes ) Patient Requires Transmission-Based No No Precautions Finger Stick Blood Sugar(mg/dl) (if not checked 129 indicated): Blood Sugar Stated by Stated by Patient Patient Height and Weight Height 6 ft 5 in Weight 110.644 kg Weight in Pounds 243.9 lbs Weight Measurement Method Estimated by Patient Body Mass Index (BMI) 28.9 28.9 BMI Classification Overweight Overweight BSA - Genevieve 2.43 Vital Signs Temperature (97.8 F-99.1 F) 97.4 F L 98.6 F Temperature Source Temporal Temporal Pulse Rate (60-100) 72 55 L Pulse Location Monitor Respiratory Rate (12-18) 18 20 H Respiratory rate source Observation Observation Blood Pressure (90/60-120/80) 143/61 H 183/89 H Blood Pressure Mean (mm Hg) 88 120 Source Monitor Monitor History Since Last Visit- (Skip if this is Patient's initial visit) Have you changed medications since your No last visit? Any new allergies or adverse reactions No Had a fall/change in ADL's that may No increase risk of falls Signs or symptoms of abuse and/or No neglect since last visit Have you been in the hospital since your No last visit? Has dressing in place as prescribed Yes Has compression in place as prescribed Yes Has offloadiing in place as prescribed Yes Experienced any changes in pain level or No management Left Footwear Diabetic Shoe Right Footwear Diabetic Shoe Surgical Shoe with pressure relief insole Pain Scale: 0-10 Numeric Is Patient Pain Free? Yes Yes Lower Extremity Assessment/ Foot Assessment/ Toe Nail Assessment Left -Posterior Tibial Palpable Yes -Dorsalis Pedis Palpable Yes -Extremity Color Normal -Hair Growth on Legs Yes -Hair Growth on Toes Yes -Temperature of Extremity Warm -Capillary Refill Less than 3 Seconds -Dependent Rubor No -Blanched when Elevated No -Lipodermatosclerosis No -Other Deformity No -Prior Foot Ulcer No -Charcot Joint No -Toe Nail Assessment Not Applicable -Thick No -Discolored No -Deformed No -Improper Length & Hygeine No Right -Posterior Tibial Palpable Yes -Dorsalis Pedis Palpable Yes -Extremity Color Normal -Hair Growth on Legs Yes -Hair Growth on Toes Yes -Capillary Refill Less than 3 Seconds -Dependent Rubor No -Blanched when Elevated No -Lipodermatosclerosis No -Other Deformity No -Prior Foot Ulcer No -Charcot Joint No -Prior Amputation No -Thick No -Discolored No -Deformed No -Improper Length & Hygeine No Neuropathy Assessment Feet - Top Side and Bottom <Entered> (a) Communication Assessment Preferred language Thai Able to Read Yes Able to Write Yes Communication Tools None Right Hearing Abillity Normal Left Hearing Abillity Normal Visual Assistive Devices Glasses Teaching Assessment Preferences Verbal,Written, Demonstration Barriers to Learning None Readiness To Learn Excellent Willingness to Engage in Self Management High Activies Readiness to Engage in Self Management High Activities Anxiety Level Calm Cooperation Cooperative Perception Coherent Interest in Health Problem Asks Questions Education Importance Acknowledges Need Does Patient Smoke tobacco or other No substances Smoking Status Former smoker Is Patient Diabetic Yes Functional Assessment Recent Decline in Ability to Perform Denies Any Declines Culture/Uatsdin/Meat And Seafood Clerk Cultural/Uatsdin Needs that may affect No Treatment Plan Would you allow our hospital textile conservator to No meet you for the purpose of spiritual/ emotional support? Meat And Seafood Clerk to contact place of adventism No Teaching: Wound Center Discharge Instructions -Person Taught Patient Dressing Your Wound -Person Taught Patient Eliminating Foot Pressure -Person Taught Patient Diagnostic Tests Ordered -Person Taught Patient *Pressure Ulcers -Person Taught Patient *Infection -Person Taught Patient *Welcome to the Wound Center -Person Taught Patient (a) 1 - _ 2 - + 3 - _ - Nurse 1 - General Ulcer Measurement Start: 10/30/21 10:15 Freq: Status: Active Protocol: Activity Type Activity Date Activity User E-sign Co-sign Detail Recorded Client Recorded Date Recorded By Document 10/30/21 10:15 DL [id number] 10/30/21 10:33 DL Document 11/06/21 10:33 DL [id number] 11/06/21 10:38 DL 10/30/21 11/06/21 10:15 10:33 Wound Center Nurse 1 #2 R 2nd Toe -Current Size (cm) - Length 1.1 0.9 -Current Size (cm) - Width 1 0.6 -Current Size (cm) - Depth 0.1 0.1 -Total Square Cm 1.1 0.54 -Photo Taken Yes No -Classification - Thickness Full Thickness without Exposed Support Structure -Exudate Amt Small Small -Exudate Type Serosanguineous Serosanguineous -Wound Margin Distinct, Thickened Outline Attached -Granulation Amt Small (1-33%) Large (67-100%) -Granulation Quality Derry Pale,Derry -Necrosis Amt Large (67-100%) None Present (0 %) -Necrotic Tissue Type Adherent Slough -Structure Exposed N/A N/A -Texture (Mariama-wound Skin Appearance) Callus, Callus,Scarring Localized Edema -Moisture (Mariama-wound Skin Appearance) Dry/Scaly No Abnormality -Color (Mariama-wound Skin Appearance) No Abnormality, No Abnormality Erythema -Temperature (Mariama-wound Skin No Abnormality No Abnormality Appearance) (Pt Warm) (Pt Warm) -Tenderness on Palpation (Mariama-wound No No Skin Appearance) -Ulcer Cleansing Rinsed/ Rinsed/ Irrigated with Irrigated with Saline Saline -Foul Odor after Cleansing No No -Anesthetic Used 5% Lidocaine 5% Lidocaine Gel Gel WC - Nurse 2 - General Ulcer CM Notes Start: 10/30/21 10:15 Freq: Status: Active Protocol: Activity Type Activity Date Activity User E-sign Co-sign Detail Recorded Client Recorded Date Recorded By Document 10/30/21 10:58 [id number] 10/30/21 11:04 Document 11/06/21 11:03 YASMANY [id number] 11/06/21 11:04 YASMANY 10/30/21 11/06/21 10:58 11:03 Wound Center Nurse 2 #2 R 2nd Toe -Time 11:00 10:49 -Correct Patient Yes Yes -Correct Side, Site, Position Yes Yes -Correct Procedure Yes Yes -Procedure Performed Yes Yes -Type of Procedure Debridement Debridement -Clinical Debridement Subcutaneous Subcutaneous -Tissue Removed Subcutaneous Subcutaneous -Post Debridement (cm) - Length 1.1 0.9 -Post Debridement (cm) - Width 1.1 0.6 -Post Debridement (cm) - Depth 0.1 0.1 -Total Square (Post) (cm) 1.21 0.54 -Area of Debridement (cm) - Length 1.1 0.9 -Area of Debridement (cm) - Width 1.1 0.6 -Total Square (Area) (cm) 1.21 0.54 -Tunneling No No -Undermining/Tunneling No No -Circular Undermining No No -Wound/Ulcer Outcome Not Healed Not Healed -Ulcer Cleansing Rinsed/ Rinsed/ Irrigated with Irrigated with Saline Saline -Foul Odor after Cleansing No No -Bioengineered Tissue No No -Bleeding Controlled with Pressure Pressure -Treatment Response Procedure Procedure Tolerated Well Tolerated Well -Offloading Yes -Type of Offloading Surgical Shoe -Debridement - Subq, 1st 20sq cm Yes Yes Pain Scale: 0-10 Numeric Is Patient Pain Free? Yes Yes - Nurse 3 - General Ulcer D/C NN Start: 10/30/21 10:15 Freq: Status: Active Protocol: Activity Type Activity Date Activity User E-sign Co-sign Detail Recorded Client Recorded Date Recorded By Document 10/30/21 11:17 [facility] [id number] 10/30/21 11:17 [facility] Document 11/06/21 10:59 [id number] 11/06/21 11:00 DL 10/30/21 11/06/21 11:17 10:59 Wound Care Nurse 3 #2 R 2nd Toe -Ulcer Cleansing Rinsed/ Rinsed/ Irrigated with Irrigated with Saline Saline -Foul Odor after Cleansing No No -Primary Dressing Applied Other -Other Dressing hydrogel hydrogel today -Primary Dressing Covered/Secured with Dry Gauze, Dry Gauze, Secured with Secured with Tape Tape Treatment Response Procedure Procedure Tolerated Well Tolerated Well Pain Scale: 0-10 Numeric Is Patient Pain Free? Yes Yes - Visit Discharge Discharge Condition Stable Stable Ambulatory Status Ambulatory Ambulatory Transportation Private Auto Private Auto Notes: Pt to resume Santyl at home. Assessment/Plan Assessment/Plan (1) Type 2 diabetes mellitus with diabetic polyneuropathy: CODE(S): E11.42 - Type 2 diabetes mellitus with diabetic polyneuropathy (2) Hammer toe of right foot: CODE(S): M20.41 - Other hammer toe(s) (acquired), right foot (3) Chronic ulcer of right foot with fat layer exposed: CODE(S): L97.512 - Non-pressure chronic ulcer of other part of right foot with fat layer exposed PLAN: Plan I reviewed and discussed his case today.? Debridement was performed today as noted in the clinical panel to all of the ulcer site. Improvement is noted. The following work up and care recommendations were made: Dressing: Santyl applied nickel thickness daily Wash: Antibacterial soap and water. I recommend he discontinue his routine Hibiclens use. Tissue growth optimization: Advanced wound healing product will be considered if the wound enlarges or if there is lack of healing Offload: To walk on heel with surgical shoe that has offloading pocket to take pressure off of the toe ulcer. Vascular: Noninvasive vascular studies ordered to confirm arterial perfusion. He is in the process of getting this scheduled still. Infection: He completed a course of levofloxacin which appears appropriate according to culture growth: Enterobacter Baumannii, Staph aureus, gram-negative bridgett lactose stucco mason. there are no local signs infection today and he was advised to complete his 14-day course of antibiotics and to monitor for return of local infection or systemic illness. Diagnostic data: Updated x-rays and labs will be considered if lack of healing is noted. Pain: This is not noted today due to his neuropathic status Host factors: He has diabetes with neuropathy and history of bariatric surgery.? I recommend nutritional supplementation to optimize healing. I answered all the patient's questions.? To return to the wound healing center in 1 week or call sooner if the patient has any questions or concerns. Note: Conferize speech recognition electronic controls repairer supervisor software was used to create portions of this document. Sound-alike and misspelled words, as well as other electronic controls repairer supervisor errors may be contained in the documentation.
[2021-11-13 14:16] VITALS: BP 162/85; PULSE 61; RESP 20; TEMP 36.3; BMI 28.9
--- NOTE | 2021-11-13 14:58 | PCM.WC.PN ---
History of Present Illness Date of Service: 11/13/21 Chief Complaint: right second toe ulcer History of Wound: This is a 45-year-old male who is following up for right second toe ulcer. He is known to suffer from diabetic peripheral neuropathy also. The patient has recently been wearing a postoperative shoe for offloading purposes within a fabricated offloading pocket. He is still in the process of scheduling his updated vascular studies. He changes his dressing with Santyl. He denies redness, fever, chill, nausea, vomiting or odor. He thinks it is improving. Progress of Wound: Improving Objective Data Objective Data Vital Signs: Vital Signs Temp Pulse Resp BP 97.3 F L 61 20 H 162/85 H 11/13/21 14:16 11/13/21 14:16 11/13/21 14:16 11/13/21 14:16 Weight: 110.644 kg Body Mass Index (BMI) 28.9 Physical Exam Const alert and oriented x3 General Appearance: cooperative Extremity Extremity Narrative: No calf tenderness Diminished pulses Muscle wasting noted Dorsal traction of lesser digits bilateral lower extremities No bogginess or fluctuance right foot General Extremity: edema and no tenderness to palpation of joints or extremities; Negative for cyanosis Skin Skin Narrative: no purulence, no streaking, no odor, no infection Erythema resolved right foot. No loosening of nails. Skin discontinuity superficial with granular and minimal fibrous tissue without probe to deep tissues or necrosis The ulcer is a superficial granular base with peripheral epithelialization noted - decreased size noted General Skin Exam: Negative for erythema Neuro Neuro Narrative: lack of normal epicritic sensation via light touch is consistent with neuropathy status Psych cooperative and affect normal Debridement Note Debridement Note Wound debrided: Distal second toe Laterality: Right Wound Grade/Stage: 1 Type of Debridement: Excisional debridement Anesthesia Used: 4% Lidocaine Solution Depth: in the subcutaneous layer Percentage of wound debrided: 100 Instrument Used: #15 blade Tissue Removed: fibrous, devitalized subcutaneous, biofilm, slough Severity: Fat Layer Exposed Amount of bleeding with debridement: Mild Bleeding Controlled with: Pressure Patient tolerated procedure: Patient tolerated procedure well Post-Debridement Measurements and Additional Note: Post-Debridement Measurements/Treatment DAVIN - Nurse 1 - General Ulcer Assessment Start: 10/30/21 10:15 Freq: Status: Active Protocol: MONI Activity Type Activity Date Activity User E-sign Co-sign Detail Recorded Client Recorded Date Recorded By Document 10/30/21 10:15 DL [id number] 10/30/21 10:33 DL Document 11/06/21 10:33 DL [id number] 11/06/21 10:38 DL Document 11/13/21 14:16 DL [id number] 11/13/21 14:21 DL 10/30/21 11/06/21 11/13/21 10:15 10:33 14:16 WC - Today's Visit Information Type of service Initial Visit Follow-up Visit Follow-up Visit (Physician/PERPETUAL INVENTORY CLERK (Physician/PERPETUAL INVENTORY CLERK ) ) Arrival Mode Ambulatory Ambulatory Ambulatory Transfer Assistance None None None Patient Identification Verified (Name & Yes Yes Yes ) Patient Requires Transmission-Based No No No Precautions Finger Stick Blood Sugar(mg/dl) (if not checked 129 indicated): Blood Sugar Stated by Stated by Patient Patient Height and Weight Height 6 ft 5 in Weight 110.644 kg Weight in Pounds 243.9 lbs Weight Measurement Method Estimated by Patient Body Mass Index (BMI) 28.9 28.9 28.9 BMI Classification Overweight Overweight Overweight BSA - Genevieve 2.43 Vital Signs Temperature (97.8 F-99.1 F) 97.4 F L 98.6 F 97.3 F L Temperature Source Temporal Temporal Temporal Pulse Rate (60-100) 72 55 L 61 Pulse Location Monitor Monitor Respiratory Rate (12-18) 18 20 H 20 H Respiratory rate source Observation Observation Observation Blood Pressure (90/60-120/80) 143/61 H 183/89 H 162/85 H Blood Pressure Mean (mm Hg) 88 120 110 Source Monitor Monitor Monitor History Since Last Visit- (Skip if this is Patient's initial visit) Have you changed medications since your No No last visit? Any new allergies or adverse reactions No No Had a fall/change in ADL's that may No No increase risk of falls Signs or symptoms of abuse and/or No No neglect since last visit Have you been in the hospital since your No No last visit? Has dressing in place as prescribed Yes Yes Has compression in place as prescribed Yes Yes Has offloadiing in place as prescribed Yes Yes Experienced any changes in pain level or No No management Left Footwear Diabetic Shoe Right Footwear Diabetic Shoe Surgical Shoe Surgical Shoe with pressure with pressure relief insole relief insole Pain Scale: 0-10 Numeric Is Patient Pain Free? Yes Yes Yes Lower Extremity Assessment/ Foot Assessment/ Toe Nail Assessment Left -Posterior Tibial Palpable Yes -Dorsalis Pedis Palpable Yes -Extremity Color Normal -Hair Growth on Legs Yes -Hair Growth on Toes Yes -Temperature of Extremity Warm -Capillary Refill Less than 3 Seconds -Dependent Rubor No -Blanched when Elevated No -Lipodermatosclerosis No -Other Deformity No -Prior Foot Ulcer No -Charcot Joint No -Toe Nail Assessment Not Applicable -Thick No -Discolored No -Deformed No -Improper Length & Hygeine No Right -Posterior Tibial Palpable Yes -Dorsalis Pedis Palpable Yes -Extremity Color Normal -Hair Growth on Legs Yes -Hair Growth on Toes Yes -Capillary Refill Less than 3 Seconds -Dependent Rubor No -Blanched when Elevated No -Lipodermatosclerosis No -Other Deformity No -Prior Foot Ulcer No -Charcot Joint No -Prior Amputation No -Thick No -Discolored No -Deformed No -Improper Length & Hygeine No Neuropathy Assessment Feet - Top Side and Bottom <Entered> (a) Communication Assessment Preferred language Japanese Able to Read Yes Able to Write Yes Communication Tools None Right Hearing Abillity Normal Left Hearing Abillity Normal Visual Assistive Devices Glasses Teaching Assessment Preferences Verbal,Written, Demonstration Barriers to Learning None Readiness To Learn Excellent Willingness to Engage in Self Management High Activies Readiness to Engage in Self Management High Activities Anxiety Level Calm Cooperation Cooperative Perception Coherent Interest in Health Problem Asks Questions Education Importance Acknowledges Need Does Patient Smoke tobacco or other No substances Smoking Status Former smoker Is Patient Diabetic Yes Functional Assessment Recent Decline in Ability to Perform Denies Any Declines Culture/Congregational/Medical Voucher Clerk Cultural/Congregational Needs that may affect No Treatment Plan Would you allow our hospital health and social care teacher to No meet you for the purpose of spiritual/ emotional support? Medical Voucher Clerk to contact place of mu-ism No Teaching: Wound Center Discharge Instructions -Person Taught Patient Dressing Your Wound -Person Taught Patient Eliminating Foot Pressure -Person Taught Patient Diagnostic Tests Ordered -Person Taught Patient *Pressure Ulcers -Person Taught Patient *Infection -Person Taught Patient *Welcome to the Wound Center -Person Taught Patient (a) 1 - _ 2 - + 3 - _ WC - Nurse 1 - General Ulcer Measurement Start: 10/30/21 10:15 Freq: Status: Active Protocol: Activity Type Activity Date Activity User E-sign Co-sign Detail Recorded Client Recorded Date Recorded By Document 10/30/21 10:15 DL [id number] 10/30/21 10:33 DL Document 11/06/21 10:33 DL [id number] 11/06/21 10:38 DL Document 11/13/21 14:16 DL [id number] 11/13/21 14:21 DL 10/30/21 11/06/21 11/13/21 10:15 10:33 14:16 Wound Center Nurse 1 #2 R 2nd Toe -Current Size (cm) - Length 1.1 0.9 0.8 -Current Size (cm) - Width 1 0.6 0.6 -Current Size (cm) - Depth 0.1 0.1 0.1 -Total Square Cm 1.1 0.54 0.48 -Photo Taken Yes No No -Classification - Thickness Full Thickness without Exposed Support Structure -Exudate Amt Small Small None Present -Exudate Type Serosanguineous Serosanguineous -Wound Margin Distinct, Thickened Thickened Outline Attached -Granulation Amt Small (1-33%) Large (67-100%) Large (67-100%) -Granulation Quality [place]tt Pale,Parrott Pale,Parrott -Necrosis Amt Large (67-100%) None Present (0 Small (1-33%) %) -Necrotic Tissue Type Adherent Slough Adherent Slough -Structure Exposed N/A N/A N/A -Texture (Mariama-wound Skin Appearance) Callus, Callus,Scarring Callus, Localized Edema Localized Edema -Moisture (Mariama-wound Skin Appearance) Dry/Scaly No Abnormality Dry/Scaly -Color (Mariama-wound Skin Appearance) No Abnormality, No Abnormality No Abnormality Erythema -Temperature (Mariama-wound Skin No Abnormality No Abnormality No Abnormality Appearance) (Pt Warm) (Pt Warm) (Pt Warm) -Tenderness on Palpation (Mariama-wound No No No Skin Appearance) -Ulcer Cleansing Rinsed/ Rinsed/ Rinsed/ Irrigated with Irrigated with Irrigated with Saline Saline Saline -Foul Odor after Cleansing No No No -Anesthetic Used 5% Lidocaine 5% Lidocaine 5% Lidocaine Gel Gel Gel WC - Nurse 2 - General Ulcer CM Notes Start: 10/30/21 10:15 Freq: Status: Active Protocol: Activity Type Activity Date Activity User E-sign Co-sign Detail Recorded Client Recorded Date Recorded By Document 10/30/21 10:58 [id number] 10/30/21 11:04 Document 11/06/21 11:03 PL [id number] 11/06/21 11:04 PL Document 11/13/21 14:46 [id number] 11/13/21 14:47 10/30/21 11/06/21 11/13/21 10:58 11:03 14:46 Wound Center Nurse 2 #2 R 2nd Toe -Time 11:00 10:49 14:46 -Correct Patient Yes Yes Yes -Correct Side, Site, Position Yes Yes Yes -Correct Procedure Yes Yes Yes -Procedure Performed Yes Yes Yes -Type of Procedure Debridement Debridement Debridement -Clinical Debridement Subcutaneous Subcutaneous Subcutaneous -Tissue Removed Subcutaneous Subcutaneous Subcutaneous -Post Debridement (cm) - Length 1.1 0.9 0.8 -Post Debridement (cm) - Width 1.1 0.6 0.7 -Post Debridement (cm) - Depth 0.1 0.1 0.1 -Total Square (Post) (cm) 1.21 0.54 0.56 -Area of Debridement (cm) - Length 1.1 0.9 0.8 -Area of Debridement (cm) - Width 1.1 0.6 0.7 -Total Square (Area) (cm) 1.21 0.54 0.56 -Tunneling No No No -Undermining/Tunneling No No No -Circular Undermining No No No -Wound/Ulcer Outcome Not Healed Not Healed Not Healed -Ulcer Cleansing Rinsed/ Rinsed/ Rinsed/ Irrigated with Irrigated with Irrigated with Saline Saline Saline -Foul Odor after Cleansing No No No -Bioengineered Tissue No No No -Bleeding Controlled with Pressure Pressure Pressure -Treatment Response Procedure Procedure Procedure Tolerated Well Tolerated Well Tolerated Well -Offloading Yes Yes -Type of Offloading Surgical Shoe Surgical Shoe -Debridement - Subq, 1st 20sq cm Yes Yes Yes Pain Scale: 0-10 Numeric Is Patient Pain Free? Yes Yes Yes - Nurse 3 - General Ulcer D/C NN Start: 10/30/21 10:15 Freq: Status: Active Protocol: Activity Type Activity Date Activity User E-sign Co-sign Detail Recorded Client Recorded Date Recorded By Document 10/30/21 11:17 [facility] [id number] 10/30/21 11:17 BM Document 11/06/21 10:59 DL [id number] 11/06/21 11:00 DL Document 11/13/21 14:55 RB [id number] 11/13/21 14:56 RB 10/30/21 11/06/21 11/13/21 11:17 10:59 14:55 Wound Care Nurse 3 #2 R 2nd Toe -Ulcer Cleansing Rinsed/ Rinsed/ Rinsed/ Irrigated with Irrigated with Irrigated with Saline Saline Saline -Foul Odor after Cleansing No No -Primary Dressing Applied Other -Other Dressing hydrogel hydrogel today hydrogel -Primary Dressing Covered/Secured with Dry Gauze, Dry Gauze, Dry Gauze, Secured with Secured with Secured with Tape Tape Tape Treatment Response Procedure Procedure Procedure Tolerated Well Tolerated Well Tolerated Well Pain Scale: 0-10 Numeric Is Patient Pain Free? Yes Yes Yes WC - Visit Discharge Discharge Condition Stable Stable Stable Ambulatory Status Ambulatory Ambulatory Ambulatory Transportation Private Auto Private Auto Private Auto Medication Reconcilliation completed & No provided to patient/care provider Notes: Pt to resume Santyl at home. Assessment/Plan Assessment/Plan (1) Type 2 diabetes mellitus with diabetic polyneuropathy: CODE(S): E11.42 - Type 2 diabetes mellitus with diabetic polyneuropathy (2) Hammer toe of right foot: CODE(S): M20.41 - Other hammer toe(s) (acquired), right foot (3) Chronic ulcer of right foot with fat layer exposed: CODE(S): L97.512 - Non-pressure chronic ulcer of other part of right foot with fat layer exposed PLAN: Plan I reviewed and discussed his case today.? Debridement was performed today as noted in the clinical panel to all of the ulcer site. Improvement is noted. The following work up and care recommendations were made: Dressing: Kamyl applied nickel thickness daily Wash: Antibacterial soap and water. I recommend he discontinue his routine Hibiclens use. Tissue growth optimization: Advanced wound healing product will be considered if the wound enlarges or if there is lack of healing Offload: To walk on heel with surgical shoe that has offloading pocket to take pressure off of the toe ulcer. Vascular: Noninvasive vascular studies ordered to confirm arterial perfusion. He is in the process of getting this scheduled still. 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 there are no local signs infection today and he was advised to complete his 14-day course of antibiotics and to monitor for return of local infection or systemic illness. Diagnostic data: Updated x-rays and labs will be considered if lack of healing is noted. Pain: This is not noted today due to his neuropathic status Host factors: He has diabetes with neuropathy and history of bariatric surgery.? I recommend nutritional supplementation to optimize healing. I answered all the patient's questions.? To return to the wound healing center in 1 week or call sooner if the patient has any questions or concerns. Note: Petsy speech recognition cloth checker software was used to create portions of this document. Sound-alike and misspelled words, as well as other cloth checker errors may be contained in the documentation.
== END 2021-11-17 23:59 | disposition home or self-care (01) ==
LOC: WC 14:15
PROVIDERS: PCP Family Medicine; Visit Provider Podiatrist
DX: E11.621 Type 2 diabetes mellitus with foot ulcer (principal); L97.512 Non-pressure chronic ulcer of other part of right foot with fat layer exposed; E11.42 Type 2 diabetes mellitus with diabetic polyneuropathy; I10 Essential (primary) hypertension; Z79.84 Long term (current) use of oral hypoglycemic drugs; Z87.891 Personal history of nicotine dependence; M20.41 Other hammer toe(s) (acquired), right foot; E78.00 Pure hypercholesterolemia, unspecified
CPT/HCPCS: 11042; 99213; G0463

== ENCOUNTER 2021-12-11 14:30 | Outpatient (RCR) | payer OTHER, SELFPAY ==
[2021-11-18 00:40] VITALS: BP 162/85; PULSE 61; RESP 20; TEMP 36.3; BMI 28.9
[2021-11-20 14:24] VITALS: BP 146/77; PULSE 55; RESP 16; TEMP 36.8; BMI 28.9
--- NOTE | 2021-11-20 15:47 | PCM.WC.PN ---
History of Present Illness Date of Service: 11/20/21 Chief Complaint: right second toe ulcer History of Wound: This is a 45-year-old male who is following up for right second toe ulcer. He is known to suffer from diabetic peripheral neuropathy also. The patient has recently been wearing a postoperative shoe for offloading purposes within a fabricated offloading pocket. He is still in the process of scheduling his updated vascular studies. He changes his dressing with Santyl. He denies redness, fever, chill, nausea, vomiting or odor. He thinks it is improving. Progress of Wound: improving Objective Data Objective Data Vital Signs: Vital Signs Temp Pulse Resp BP O2 Del Method 98.3 F 55 L 16 146/77 H Room Air 11/20/21 14:24 11/20/21 14:24 11/20/21 14:24 11/20/21 14:24 11/20/21 14:24 Oxygen Delivery Method Room Air Weight: 110.644 kg Body Mass Index (BMI) 28.9 Physical Exam Const alert and oriented x3 General Appearance: cooperative Extremity Extremity Narrative: No calf tenderness Diminished pulses Muscle wasting noted Dorsal traction of lesser digits bilateral lower extremities No bogginess or fluctuance right foot General Extremity: edema and no tenderness to palpation of joints or extremities; Negative for cyanosis Skin Skin Narrative: no purulence, no streaking, no odor, no infection Erythema resolved right foot. No loosening of nails. Skin discontinuity superficial with granular and minimal fibrous tissue without probe to deep tissues or necrosis The ulcer is a superficial granular base with peripheral epithelialization noted - decreased size noted General Skin Exam: Negative for erythema Neuro Neuro Narrative: lack of normal epicritic sensation via light touch is consistent with neuropathy status Debridement Note Debridement Note Wound debrided: Distal second toe Laterality: Right Wound Grade/Stage: 1 Type of Debridement: Excisional debridement Anesthesia Used: 4% Lidocaine Solution Depth: in the subcutaneous layer Percentage of wound debrided: 100 Instrument Used: #15 blade Tissue Removed: fibrous, devitalized subcutaneous, biofilm, slough Severity: Fat Layer Exposed Amount of bleeding with debridement: Mild Bleeding Controlled with: Pressure Patient tolerated procedure: Patient tolerated procedure well Post-Debridement Measurements and Additional Note: Post-Debridement Measurements/Treatment DAVIN - Nurse 1 - General Ulcer Assessment Start: 11/20/21 14:23 Freq: Status: Active Protocol: MONI Activity Type Activity Date Activity User E-sign Co-sign Detail Recorded Client Recorded Date Recorded By Document 11/20/21 14:24 [facility] [id number] 11/20/21 14:26 [facility] 11/20/21 14:24 - Today's Visit Information Type of service Follow-up Visit (Physician/DANCE CRITIC ) Arrival Mode Ambulatory Transfer Assistance None Patient Identification Verified (Name & Yes ) Patient Requires Transmission-Based No Precautions Height and Weight Body Mass Index (BMI) 28.9 BMI Classification Overweight Vital Signs Temperature (97.8 F-99.1 F) 98.3 F Temperature Source Temporal Pulse Rate (60-100) 55 L Pulse Location Monitor Respiratory Rate (12-18) 16 Respiratory rate source Observation Oxygen Delivery Method Room Air Blood Pressure (90/60-120/80) 146/77 H Blood Pressure Mean (mm Hg) 100 Source Monitor Position Sitting Blood Pressure Location Left Arm History Since Last Visit- (Skip if this is Patient's initial visit) Have you changed medications since your No last visit? Any new allergies or adverse reactions No Had a fall/change in ADL's that may No increase risk of falls Signs or symptoms of abuse and/or No neglect since last visit Have you been in the hospital since your No last visit? Has dressing in place as prescribed Yes Has compression in place as prescribed N/A Has offloadiing in place as prescribed Yes Experienced any changes in pain level or No management Left Footwear Surgical Shoe with pressure relief insole Right Footwear Regular Shoe Pain Scale: 0-10 Numeric Is Patient Pain Free? Yes - Nurse 1 - General Ulcer Measurement Start: 11/20/21 14:23 Freq: Status: Active Protocol: Activity Type Activity Date Activity User E-sign Co-sign Detail Recorded Client Recorded Date Recorded By Document 11/20/21 14:24 [facility] [id number] 11/20/21 14:26 [facility] 11/20/21 14:24 Wound Center Nurse 1 #2 R 2nd Toe -Combined with other wound No -Current Size (cm) - Length 0.6 -Current Size (cm) - Width 0.4 -Current Size (cm) - Depth 0.1 -Total Square Cm 0.24 -Date of Last Picture (Recall this 11/20/21 field) -Photo Taken Yes -Epithelialization None Present -Tunneling No -Undermining/Tunneling No -Circular Undermining No -Exudate Amt Small -Exudate Type Serosanguineous -Wound Margin Distinct, Outline Attached -Granulation Amt Medium (34-66%) -Granulation Quality [place] -Slough/Fibrin Yes -Necrosis Amt Medium (34-66%) -Necrotic Tissue Type Adherent Slough -Texture (Mariama-wound Skin Appearance) Assessed,Callus -Moisture (Mariama-wound Skin Appearance) Assessed,Dry/ Scaly -Color (Mariama-wound Skin Appearance) Assessed -Temperature (Mariama-wound Skin No Abnormality Appearance) (Pt Warm) -Tenderness on Palpation (Mariama-wound No Skin Appearance) -Ulcer Cleansing Rinsed/ Irrigated with Saline -Foul Odor after Cleansing No -Anesthetic Used 5% Lidocaine Gel WC - Nurse 2 - General Ulcer CM Notes Start: 11/20/21 14:23 Freq: Status: Active Protocol: Activity Type Activity Date Activity User E-sign Co-sign Detail Recorded Client Recorded Date Recorded By Document 11/20/21 14:38 JEANA [id number] 11/20/21 14:40 JEANA 11/20/21 14:38 Wound Center Nurse 2 -Time 14:39 -Correct Patient Yes -Correct Side, Site, Position Yes -Correct Procedure Yes -Procedure Performed Yes -Type of Procedure Debridement -Clinical Debridement Subcutaneous -Tissue Removed Subcutaneous -Post Debridement (cm) - Length 0.6 -Post Debridement (cm) - Width 0.5 -Post Debridement (cm) - Depth 0.1 -Total Square (Post) (cm) 0.30 -Area of Debridement (cm) - Length 0.6 -Area of Debridement (cm) - Width 0.5 -Total Square (Area) (cm) 0.30 -Tunneling No -Undermining/Tunneling No -Circular Undermining No -Wound/Ulcer Outcome Not Healed -Ulcer Cleansing Rinsed/ Irrigated with Saline -Foul Odor after Cleansing No -Bioengineered Tissue No -Bleeding Controlled with Pressure -Treatment Response Procedure Tolerated Well -Offloading Yes -Type of Offloading Surgical Shoe -Debridement - Subq, 1st 20sq cm Yes Pain Scale: 0-10 Numeric Is Patient Pain Free? Yes DAVIN - Nurse 3 - General Ulcer D/C NN Start: 11/20/21 14:23 Freq: Status: Active Protocol: Activity Type Activity Date Activity User E-sign Co-sign Detail Recorded Client Recorded Date Recorded By Document 11/20/21 14:45 [facility] [id number] 11/20/21 14:46 [facility] 11/20/21 14:45 Wound Care Nurse 3 #2 R 2nd Toe -Ulcer Cleansing Rinsed/ Irrigated with Saline -Foul Odor after Cleansing No -Primary Dressing Applied Other -Other Dressing HYDROGEL -Primary Dressing Covered/Secured with Dry Gauze, Secured with Tape Treatment Response Procedure Tolerated Well Pain Scale: 0-10 Numeric Is Patient Pain Free? Yes WC - Visit Discharge Discharge Condition Stable Ambulatory Status Ambulatory Transportation Private Auto Assessment/Plan Assessment/Plan (1) Type 2 diabetes mellitus with diabetic polyneuropathy: CODE(S): E11.42 - Type 2 diabetes mellitus with diabetic polyneuropathy (2) Hammer toe of right foot: CODE(S): M20.41 - Other hammer toe(s) (acquired), right foot (3) Chronic ulcer of right foot with fat layer exposed: CODE(S): L97.512 - Non-pressure chronic ulcer of other part of right foot with fat layer exposed PLAN: Plan I reviewed and discussed his case today.? Debridement was performed today as noted in the clinical panel to all of the ulcer site. Improvement is noted. The following work up and care recommendations were made: Dressing: Santyl applied nickel thickness daily Wash: Antibacterial soap and water. I recommend he discontinue his routine Hibiclens use. Tissue growth optimization: Advanced wound healing product will be considered if the wound enlarges or if there is lack of healing Offload: To walk on heel with surgical shoe that has offloading pocket to take pressure off of the toe ulcer. Vascular: Noninvasive vascular studies ordered to confirm arterial perfusion. He is in the process of getting this scheduled still. 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 there are no local signs infection today and he was advised to complete his 14-day course of antibiotics and to monitor for return of local infection or systemic illness. Diagnostic data: Updated x-rays and labs will be considered if lack of healing is noted. Pain: This is not noted today due to his neuropathic status Host factors: He has diabetes with neuropathy and history of bariatric surgery.? I recommend nutritional supplementation to optimize healing. I answered all the patient's questions.? To return to the wound healing center in 1 week or call sooner if the patient has any questions or concerns. Note: G-cluster speech recognition switch operators supervisor software was used to create portions of this document. Sound-alike and misspelled words, as well as other switch operators supervisor errors may be contained in the documentation.
[2021-11-27 14:34] VITALS: BP 180/92; PULSE 61; RESP 20; TEMP 36.3; BMI 28.9
--- NOTE | 2021-11-27 15:47 | PCM.WC.PN ---
History of Present Illness Date of Service: 11/27/21 Chief Complaint: right second toe ulcer History of Wound: This is a 45-year-old male who is following up for right second toe ulcer. He is known to suffer from diabetic peripheral neuropathy also. The patient has recently been wearing a postoperative shoe for offloading purposes within a fabricated offloading pocket. He changes his dressing with Santyl. He denies redness, fever, chill, nausea, vomiting or odor. He thinks it is improving. Progress of Wound: improving Objective Data Objective Data Vital Signs: Vital Signs Temp Pulse Resp BP O2 Del Method 97.3 F L 61 20 H 180/92 H Room Air 11/27/21 14:34 11/27/21 14:34 11/27/21 14:34 11/27/21 14:34 11/20/21 14:24 Oxygen Delivery Method Room Air Weight: 110.644 kg Body Mass Index (BMI) 28.9 Physical Exam Const alert and oriented x3 General Appearance: cooperative Extremity Extremity Narrative: No calf tenderness Diminished pulses Muscle wasting noted Dorsal traction of lesser digits bilateral lower extremities No bogginess or fluctuance right foot Skin Skin Narrative: no purulence, no streaking, no odor, no infection Erythema resolved right foot. No loosening of nails. Skin discontinuity superficial with granular and minimal fibrous tissue without probe to deep tissues or necrosis The ulcer is a superficial granular base with peripheral epithelialization noted - decreased size noted General Skin Exam: Negative for erythema Neuro Neuro Narrative: lack of normal epicritic sensation via light touch is consistent with neuropathy status Debridement Note Debridement Note Wound debrided: Distal second toe Laterality: Right Wound Grade/Stage: 1 Type of Debridement: Excisional debridement Anesthesia Used: 4% Lidocaine Solution Depth: in the subcutaneous layer Percentage of wound debrided: 100 Instrument Used: #15 blade Tissue Removed: fibrous, devitalized subcutaneous, biofilm, slough Severity: Fat Layer Exposed Amount of bleeding with debridement: Mild Bleeding Controlled with: Pressure Patient tolerated procedure: Patient tolerated procedure well Post-Debridement Measurements and Additional Note: Post-Debridement Measurements/Treatment DAVIN - Nurse 1 - General Ulcer Assessment Start: 11/20/21 14:23 Freq: Status: Active Protocol: MONI Activity Type Activity Date Activity User E-sign Co-sign Detail Recorded Client Recorded Date Recorded By Document 11/20/21 14:24 [facility] [id number] 11/20/21 14:26 [facility] Document 11/27/21 14:34 DL [id number] 11/27/21 14:39 DL 11/20/21 11/27/21 14:24 14:34 - Today's Visit Information Type of service Follow-up Visit Follow-up Visit (Physician/CUSTOMS PATROL OFFICER (Physician/CUSTOMS PATROL OFFICER ) ) Arrival Mode Ambulatory Ambulatory Transfer Assistance None None Patient Identification Verified (Name & Yes Yes ) Patient Requires Transmission-Based No No Precautions Height and Weight Body Mass Index (BMI) 28.9 28.9 BMI Classification Overweight Overweight Vital Signs Temperature (97.8 F-99.1 F) 98.3 F 97.3 F L Temperature Source Temporal Temporal Pulse Rate (60-100) 55 L 61 Pulse Location Monitor Monitor Respiratory Rate (12-18) 16 20 H Respiratory rate source Observation Observation Oxygen Delivery Method Room Air Blood Pressure (90/60-120/80) 146/77 H 180/92 H Blood Pressure Mean (mm Hg) 100 121 Source Monitor Monitor Position Sitting Blood Pressure Location Left Arm History Since Last Visit- (Skip if this is Patient's initial visit) Have you changed medications since your No No last visit? Any new allergies or adverse reactions No No Had a fall/change in ADL's that may No No increase risk of falls Signs or symptoms of abuse and/or No No neglect since last visit Have you been in the hospital since your No No last visit? Has dressing in place as prescribed Yes Yes Has compression in place as prescribed N/A N/A Has offloadiing in place as prescribed Yes Yes Experienced any changes in pain level or No No management Left Footwear Surgical Shoe Regular Shoe with pressure relief insole Right Footwear Regular Shoe Surgical Shoe with pressure relief insole Pain Scale: 0-10 Numeric Is Patient Pain Free? Yes Yes - Nurse 1 - General Ulcer Measurement Start: 11/20/21 14:23 Freq: Status: Active Protocol: Activity Type Activity Date Activity User E-sign Co-sign Detail Recorded Client Recorded Date Recorded By Document 11/20/21 14:24 [facility] [id number] 11/20/21 14:26 [facility] Document 11/27/21 14:34 DL [id number] 11/27/21 14:39 DL 11/20/21 11/27/21 14:24 14:34 Wound Center Nurse 1 #2 R 2nd Toe -Combined with other wound No -Current Size (cm) - Length 0.6 0.2 -Current Size (cm) - Width 0.4 0.2 -Current Size (cm) - Depth 0.1 0.2 -Total Square Cm 0.24 0.04 -Date of Last Picture (Recall this 11/20/21 field) -Photo Taken Yes No -Epithelialization None Present -Tunneling No -Undermining/Tunneling No -Circular Undermining No -Exudate Amt Small None Present -Exudate Type Serosanguineous -Wound Margin Distinct, Outline Attached -Granulation Amt Medium (34-66%) Small (1-33%) -Granulation Quality [place] -Slough/Fibrin Yes -Necrosis Amt Medium (34-66%) None Present (0 %) -Necrotic Tissue Type Adherent Slough -Structure Exposed N/A -Texture (Mariama-wound Skin Appearance) Assessed,Callus Callus,Scarring -Moisture ([place]-wound Skin Appearance) Assessed,Dry/ Dry/Scaly Scaly -Color (Mariama-wound Skin Appearance) Assessed No Abnormality -Temperature ([place]-wound Skin No Abnormality No Abnormality Appearance) (Pt Warm) (Pt Warm) -Tenderness on Palpation (Mariama-wound No No Skin Appearance) -Ulcer Cleansing Rinsed/ Rinsed/ Irrigated with Irrigated with Saline Saline -Foul Odor after Cleansing No No -Anesthetic Used 5% Lidocaine 5% Lidocaine Gel Gel WC - Nurse 2 - General Ulcer CM Notes Start: 11/20/21 14:23 Freq: Status: Active Protocol: Activity Type Activity Date Activity User E-sign Co-sign Detail Recorded Client Recorded Date Recorded By Document 11/20/21 14:38 [id number] 11/20/21 14:40 Document 11/27/21 14:47 [id number] 11/27/21 14:48 11/20/21 11/27/21 14:38 14:47 Wound Center Nurse 2 #2 R 2nd Toe -Time 14:39 14:47 -Correct Patient Yes Yes -Correct Side, Site, Position Yes Yes -Correct Procedure Yes Yes -Procedure Performed Yes Yes -Type of Procedure Debridement Debridement -Clinical Debridement Subcutaneous Subcutaneous -Tissue Removed Subcutaneous Subcutaneous -Post Debridement (cm) - Length 0.6 0.3 -Post Debridement (cm) - Width 0.5 0.2 -Post Debridement (cm) - Depth 0.1 0.1 -Total Square (Post) (cm) 0.30 0.06 -Area of Debridement (cm) - Length 0.6 0.3 -Area of Debridement (cm) - Width 0.5 0.2 -Total Square (Area) (cm) 0.30 0.06 -Tunneling No No -Undermining/Tunneling No No -Circular Undermining No No -Wound/Ulcer Outcome Not Healed Not Healed -Ulcer Cleansing Rinsed/ Rinsed/ Irrigated with Irrigated with Saline Saline -Foul Odor after Cleansing No No -Bioengineered Tissue No No -Bleeding Controlled with Pressure Pressure -Treatment Response Procedure Procedure Tolerated Well Tolerated Well -Offloading Yes Yes -Type of Offloading Surgical Shoe Surgical Shoe -Debridement - Subq, 1st 20sq cm Yes Yes Pain Scale: 0-10 Numeric Is Patient Pain Free? Yes Yes - Nurse 3 - General Ulcer D/C NN Start: 11/20/21 14:23 Freq: Status: Active Protocol: Activity Type Activity Date Activity User E-sign Co-sign Detail Recorded Client Recorded Date Recorded By Document 11/20/21 14:45 [facility] [id number] 11/20/21 14:46 [facility] Document 11/27/21 14:55 [facility] [id number] 11/27/21 14:55 [facility] 11/20/21 11/27/21 14:45 14:55 Wound Care Nurse 3 #2 R 2nd Toe -Ulcer Cleansing Rinsed/ Rinsed/ Irrigated with Irrigated with Saline Saline -Foul Odor after Cleansing No No -Primary Dressing Applied Other Other -Other Dressing HYDROGEL hydrogel -Primary Dressing Covered/Secured with Dry Gauze, Dry Gauze, Secured with Secured with Tape Tape Treatment Response Procedure Procedure Tolerated Well Tolerated Well Pain Scale: 0-10 Numeric Is Patient Pain Free? Yes Yes - Visit Discharge Discharge Condition Stable Stable Ambulatory Status Ambulatory Ambulatory Transportation Private Auto Private Auto Assessment/Plan Assessment/Plan (1) Type 2 diabetes mellitus with diabetic polyneuropathy: CODE(S): E11.42 - Type 2 diabetes mellitus with diabetic polyneuropathy (2) Hammer toe of right foot: CODE(S): M20.41 - Other hammer toe(s) (acquired), right foot (3) Chronic ulcer of right foot with fat layer exposed: CODE(S): L97.512 - Non-pressure chronic ulcer of other part of right foot with fat layer exposed PLAN: Plan I reviewed and discussed his case today.? Debridement was performed today as noted in the clinical panel to all of the ulcer site. Improvement is noted. The following work up and care recommendations were made: Dressing: Santyl applied nickel thickness daily Wash: Antibacterial soap and water. I recommend he discontinue his routine Hibiclens use. Tissue growth optimization: Advanced wound healing product will be considered if the wound enlarges or if there is lack of healing Offload: To walk on heel with surgical shoe that has offloading pocket to take pressure off of the toe ulcer. Vascular: Noninvasive vascular studies ordered to confirm arterial perfusion. He is in the process of getting this scheduled still. 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 there are no local signs infection today and he was advised to complete his 14-day course of antibiotics and to monitor for return of local infection or systemic illness. Diagnostic data: Updated x-rays and labs will be considered if lack of healing is noted. Pain: This is not noted today due to his neuropathic status Host factors: He has diabetes with neuropathy and history of bariatric surgery.? I recommend nutritional supplementation to optimize healing; Terry. This was discussed today. I answered all the patient's questions.? To return to the wound healing center in 1 week or call sooner if the patient has any questions or concerns. Note: [employer] speech recognition it security specialist software was used to create portions of this document. Sound-alike and misspelled words, as well as other it security specialist errors may be contained in the documentation.
[2021-12-04 14:24] VITALS: BP 178/78; PULSE 50; RESP 16; TEMP 36.4; BMI 28.9
--- NOTE | 2021-12-04 15:03 | PCM.WC.PN ---
History of Present Illness Date of Service: 12/04/21 Chief Complaint: right second toe ulcer History of Wound: This is a 46-year-old male who is following up for right second toe ulcer. He is known to suffer from diabetic peripheral neuropathy also. The patient has recently been wearing a postoperative shoe for offloading purposes within a fabricated offloading pocket. He changes his dressing with santyl. He denies redness, fever, chill, nausea, vomiting or odor. He thinks it is improving. Progress of Wound: improving Objective Data Objective Data Vital Signs: Vital Signs Temp Pulse Resp BP O2 Del Method 97.6 F L 50 L 16 178/78 H Room Air 12/04/21 14:24 12/04/21 14:24 12/04/21 14:24 12/04/21 14:24 12/04/21 14:24 Oxygen Delivery Method Room Air Weight: 110.644 kg Body Mass Index (BMI) 28.9 Physical Exam Const alert and oriented x3 General Appearance: cooperative Extremity Extremity Narrative: No calf tenderness Diminished pulses Muscle wasting noted Dorsal traction of lesser digits bilateral lower extremities No bogginess or fluctuance right foot Skin Skin Narrative: no purulence, no streaking, no odor, no infection Erythema resolved right foot. No loosening of nails. Skin discontinuity superficial with granular and minimal fibrous tissue without probe to deep tissues or necrosis The ulcer is a superficial granular base with peripheral epithelialization noted - decreased size noted General Skin Exam: Negative for erythema Neuro Neuro Narrative: lack of normal epicritic sensation via light touch is consistent with neuropathy status Debridement Note Debridement Note Wound debrided: Distal second toe Laterality: Right Wound Grade/Stage: 1 Type of Debridement: Excisional debridement Anesthesia Used: 4% Lidocaine Solution Depth: in the subcutaneous layer Percentage of wound debrided: 100 Instrument Used: #15 blade Tissue Removed: fibrous, devitalized subcutaneous, biofilm, slough Severity: Fat Layer Exposed Amount of bleeding with debridement: Mild Bleeding Controlled with: Pressure Patient tolerated procedure: Patient tolerated procedure well Post-Debridement Measurements and Additional Note: Post-Debridement Measurements/Treatment DAVIN - Nurse 1 - General Ulcer Assessment Start: 11/20/21 14:23 Freq: Status: Active Protocol: MONI Activity Type Activity Date Activity User E-sign Co-sign Detail Recorded Client Recorded Date Recorded By Document 11/20/21 14:24 [facility] [id number] 11/20/21 14:26 [facility] Document 11/27/21 14:34 DL [id number] 11/27/21 14:39 DL Document 12/04/21 14:24 [facility] [id number] 12/04/21 14:30 [facility] 11/20/21 11/27/21 12/04/21 14:24 14:34 14:24 WC - Today's Visit Information Type of service Follow-up Visit Follow-up Visit Follow-up Visit (Physician/SHED BOSS (Physician/SHED BOSS (Physician/SHED BOSS ) ) ) Arrival Mode Ambulatory Ambulatory Ambulatory Transfer Assistance None None None Patient Identification Verified (Name & Yes Yes Yes ) Patient Requires Transmission-Based No No No Precautions Height and Weight Body Mass Index (BMI) 28.9 28.9 28.9 BMI Classification Overweight Overweight Overweight Vital Signs Temperature (97.8 F-99.1 F) 98.3 F 97.3 F L 97.6 F L Temperature Source Temporal Temporal Temporal Pulse Rate (60-100) 55 L 61 50 L Pulse Location Monitor Monitor Monitor Respiratory Rate (12-18) 16 20 H 16 Respiratory rate source Observation Observation Observation Oxygen Delivery Method Room Air Room Air Blood Pressure (90/60-120/80) 146/77 H 180/92 H 178/78 H Blood Pressure Mean (mm Hg) 100 121 111 Source Monitor Monitor Monitor Position Sitting Sitting Blood Pressure Location Left Arm Left Arm History Since Last Visit- (Skip if this is Patient's initial visit) Have you changed medications since your No No No last visit? Any new allergies or adverse reactions No No No Had a fall/change in ADL's that may No No No increase risk of falls Signs or symptoms of abuse and/or No No No neglect since last visit Have you been in the hospital since your No No No last visit? Has dressing in place as prescribed Yes Yes Yes Has compression in place as prescribed N/A N/A N/A Has offloadiing in place as prescribed Yes Yes Yes Experienced any changes in pain level or No No No management Left Footwear Surgical Shoe Regular Shoe Regular Shoe with pressure relief insole Right Footwear Regular Shoe Surgical Shoe Surgical Shoe with pressure with pressure relief insole relief insole Pain Scale: 0-10 Numeric Is Patient Pain Free? Yes Yes Yes WC - Nurse 1 - General Ulcer Measurement Start: 11/20/21 14:23 Freq: Status: Active Protocol: Activity Type Activity Date Activity User E-sign Co-sign Detail Recorded Client Recorded Date Recorded By Document 11/20/21 14:24 [facility] [id number] 11/20/21 14:26 BM Document 11/27/21 14:34 DL [id number] 11/27/21 14:39 DL Document 12/04/21 14:24 [facility] [id number] 12/04/21 14:30 [facility] 11/20/21 11/27/21 12/04/21 14:24 14:34 14:24 Wound Center Nurse 1 #2 R 2nd Toe -Combined with other wound No No -Current Size (cm) - Length 0.6 0.2 0.1 -Current Size (cm) - Width 0.4 0.2 0.1 -Current Size (cm) - Depth 0.1 0.2 0.1 -Total Square Cm 0.24 0.04 0.01 -Date of Last Picture (Recall this 11/20/21 12/04/21 field) -Photo Taken Yes No Yes -Epithelialization None Present Large 67-100% -Tunneling No No -Undermining/Tunneling No No -Circular Undermining No No -Exudate Amt Small None Present None Present -Exudate Type Serosanguineous -Wound Margin Distinct, Outline Attached -Granulation Amt Medium (34-66%) Small (1-33%) -Granulation Quality [place] -Slough/Fibrin Yes -Necrosis Amt Medium (34-66%) None Present (0 %) -Necrotic Tissue Type Adherent Slough -Structure Exposed N/A -Texture ([place]ariama-wound Skin Appearance) Assessed,Callus Callus,Scarring Assessed,Callus ,Scarring -Moisture ([place]-wound Skin Appearance) Assessed,Dry/ Dry/Scaly Assessed,Dry/ Scaly Scaly -Color ([place]-wound Skin Appearance) Assessed No Abnormality Assessed -Temperature ([place]ari[place]-wound Skin No Abnormality No Abnormality No Abnormality Appearance) (Pt Warm) (Pt Warm) (Pt Warm) -Tenderness on Palpation ([place]ari[place]-wound No No No Skin Appearance) -Ulcer Cleansing Rinsed/ Rinsed/ Rinsed/ Irrigated with Irrigated with Irrigated with Saline Saline Saline -Foul Odor after Cleansing No No No -Anesthetic Used 5% Lidocaine 5% Lidocaine 5% Lidocaine Gel Gel Gel - Nurse 2 - General Ulcer CM Notes Start: 11/20/21 14:23 Freq: Status: Active Protocol: Activity Type Activity Date Activity User E-sign Co-sign Detail Recorded Client Recorded Date Recorded By Document 11/20/21 14:38 [id number] 11/20/21 14:40 Document 11/27/21 14:47 [id number] 11/27/21 14:48 Document 12/04/21 14:41 [id number] 12/04/21 14:42 11/20/21 11/27/21 12/04/21 14:38 14:47 14:41 Wound Center Nurse 2 #2 R 2nd Toe -Time 14:39 14:47 14:41 -Correct Patient Yes Yes Yes -Correct Side, Site, Position Yes Yes Yes -Correct Procedure Yes Yes Yes -Procedure Performed Yes Yes Yes -Type of Procedure Debridement Debridement Debridement -Clinical Debridement Subcutaneous Subcutaneous Subcutaneous -Tissue Removed Subcutaneous Subcutaneous Subcutaneous -Post Debridement (cm) - Length 0.6 0.3 0.1 -Post Debridement (cm) - Width 0.5 0.2 0.1 -Post Debridement (cm) - Depth 0.1 0.1 0.1 -Total Square (Post) (cm) 0.30 0.06 0.01 -Area of Debridement (cm) - Length 0.6 0.3 0.1 -Area of Debridement (cm) - Width 0.5 0.2 0.1 -Total Square (Area) (cm) 0.30 0.06 0.01 -Tunneling No No No -Undermining/Tunneling No No No -Circular Undermining No No No -Wound/Ulcer Outcome Not Healed Not Healed Not Healed -Ulcer Cleansing Rinsed/ Rinsed/ Rinsed/ Irrigated with Irrigated with Irrigated with Saline Saline Saline -Foul Odor after Cleansing No No No -Bioengineered Tissue No No No -Bleeding Controlled with Pressure Pressure Pressure -Treatment Response Procedure Procedure Procedure Tolerated Well Tolerated Well Tolerated Well -Offloading Yes Yes Yes -Type of Offloading Surgical Shoe Surgical Shoe Surgical Shoe -Debridement - Subq, 1st 20sq cm Yes Yes Yes Pain Scale: 0-10 Numeric Is Patient Pain Free? Yes Yes Yes WC - Nurse 3 - General Ulcer D/C NN Start: 11/20/21 14:23 Freq: Status: Active Protocol: Activity Type Activity Date Activity User E-sign Co-sign Detail Recorded Client Recorded Date Recorded By Document 11/20/21 14:45 [facility] [id number] 11/20/21 14:46 [facility] Document 11/27/21 14:55 [facility] [id number] 11/27/21 14:55 [facility] Document 12/04/21 14:51 RB [id number] 12/04/21 14:52 RB 11/20/21 11/27/21 12/04/21 14:45 14:55 14:51 Wound Care Nurse 3 #2 R 2nd Toe -Ulcer Cleansing Rinsed/ Rinsed/ Rinsed/ Irrigated with Irrigated with Irrigated with Saline Saline Saline -Foul Odor after Cleansing No No -Primary Dressing Applied Other Other -Other Dressing HYDROGEL hydrogel hydrogel -Primary Dressing Covered/Secured with Dry Gauze, Dry Gauze, Dry Gauze,Dry Secured with Secured with Gauze & Roll Tape Tape Gauze,Secured with Tape Treatment Response Procedure Procedure Procedure Tolerated Well Tolerated Well Tolerated Well Pain Scale: 0-10 Numeric Is Patient Pain Free? Yes Yes Yes WC - Visit Discharge Discharge Condition Stable Stable Stable Ambulatory Status Ambulatory Ambulatory Ambulatory Transportation Private Auto Private Auto Private Auto Medication Reconcilliation completed & No provided to patient/care provider Clinical Summary of Care Provided Yes Assessment/Plan Assessment/Plan (1) Type 2 diabetes mellitus with diabetic polyneuropathy: CODE(S): E11.42 - Type 2 diabetes mellitus with diabetic polyneuropathy (2) Hammer toe of right foot: CODE(S): M20.41 - Other hammer toe(s) (acquired), right foot (3) Chronic ulcer of right foot with fat layer exposed: CODE(S): L97.512 - Non-pressure chronic ulcer of other part of right foot with fat layer exposed PLAN: Plan I reviewed and discussed his case today.? Debridement was performed today as noted in the clinical panel to all of the ulcer site. Improvement is noted. The following work up and care recommendations were made: Dressing: Santyl applied nickel thickness daily Wash: Antibacterial soap and water. I recommend he discontinue his routine Hibiclens use. Tissue growth optimization: Advanced wound healing product will be considered if the wound enlarges or if there is lack of healing Offload: To walk on heel with surgical shoe that has offloading pocket to take pressure off of the toe ulcer. Vascular: Noninvasive vascular studies ordered to confirm arterial perfusion. He is in the process of getting this scheduled still. 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 there are no local signs infection today and he was advised to complete his 14-day course of antibiotics and to monitor for return of local infection or systemic illness. Diagnostic data: Updated x-rays and labs will be considered if lack of healing is noted. Pain: This is not noted today due to his neuropathic status Host factors: He has diabetes with neuropathy and history of bariatric surgery.? I recommend nutritional supplementation to optimize healing; Terry. This was discussed today. I answered all the patient's questions.? To return to the wound healing center in 1 week or call sooner if the patient has any questions or concerns. Note: [employer] speech recognition drill operator pneumatic software was used to create portions of this document. Sound-alike and misspelled words, as well as other drill operator pneumatic errors may be contained in the documentation.
[2021-12-11 14:27] VITALS: BP 163/87; PULSE 55; RESP 16; TEMP 36.6; BMI 28.9
--- NOTE | 2021-12-11 15:33 | PN.PCM_ITS ---
History of Present Illness Date of Service: 12/11/21 Chief Complaint: right second toe ulcer History of Wound: This is a 46-year-old male who is following up for right second toe ulcer. He is known to suffer from diabetic peripheral neuropathy also. The patient has recently been wearing a postoperative shoe for offloading purposes within a fabricated offloading pocket. He changes his dressing with santyl. He denies redness, fever, chill, nausea, vomiting or odor. He thinks the ulcer may be healed and it has not drained for several days. Progress of Wound: healed Objective Data Objective Data Vital Signs: Vital Signs Temp Pulse Resp BP O2 Del Method 98 F 55 L 16 163/87 H Room Air 12/11/21 14:27 12/11/21 14:27 12/11/21 14:27 12/11/21 14:27 12/11/21 14:27 Oxygen Delivery Method Room Air Weight: 110.644 kg Body Mass Index (BMI) 28.9 Physical Exam Const alert and oriented x3 General Appearance: cooperative Extremity Extremity Narrative: No calf tenderness Diminished pulses Muscle wasting noted Dorsal traction of lesser digits bilateral lower extremities No bogginess or fluctuance right foot Skin Skin Narrative: no purulence, no streaking, no odor, no infection Erythema resolved right foot. prior ulcer site is healed with full epithelialization; thin and fragile. no drainge noted General Skin Exam: Negative for erythema Neuro Neuro Narrative: lack of normal epicritic sensation via light touch is consistent with neuropathy status Debridement Note Debridement Note Post-Debridement Measurements and Additional Note: Post-Debridement Measurements/Treatment DAVIN - Nurse 1 - General Ulcer Assessment Start: 11/20/21 14:23 Freq: Status: Active Protocol: MONI Activity Type Activity Date Activity User E-sign Co-sign Detail Recorded Client Recorded Date Recorded By Document 11/20/21 14:24 [facility] [id number] 11/20/21 14:26 BM Document 11/27/21 14:34 DL [id number] 11/27/21 14:39 DL Document 12/04/21 14:24 [facility] [id number] 12/04/21 14:30 BM Document 12/11/21 14:27 [facility] [id number] 12/11/21 14:32 BMF 08/07/0911/27/21 12/04/21 14:24 14:34 14:24 WC - Today's Visit Information Type of service Follow-up Visit Follow-up Visit Follow-up Visit (Physician/CUT OUT PRESS OPERATOR (Physician/CUT OUT PRESS OPERATOR (Physician/CUT OUT PRESS OPERATOR ) ) ) Arrival Mode Ambulatory Ambulatory Ambulatory Transfer Assistance None None None Patient Identification Verified (Name & Yes Yes Yes ) Patient Requires Transmission-Based No No No Precautions Height and Weight Body Mass Index (BMI) 28.9 28.9 28.9 BMI Classification Overweight Overweight Overweight Vital Signs Temperature (97.8 F-99.1 F) 98.3 F 97.3 F L 97.6 F L Temperature Source Temporal Temporal Temporal Pulse Rate (60-100) 55 L 61 50 L Pulse Location Monitor Monitor Monitor Respiratory Rate (12-18) 16 20 H 16 Respiratory rate source Observation Observation Observation Oxygen Delivery Method Room Air Room Air Blood Pressure (90/60-120/80) 146/77 H 180/92 H 178/78 H Blood Pressure Mean (mm Hg) 100 121 111 Source Monitor Monitor Monitor Position Sitting Sitting Blood Pressure Location Left Arm Left Arm History Since Last Visit- (Skip if this is Patient's initial visit) Have you changed medications since your No No No last visit? Any new allergies or adverse reactions No No No Had a fall/change in ADL's that may No No No increase risk of falls Signs or symptoms of abuse and/or No No No neglect since last visit Have you been in the hospital since your No No No last visit? Has dressing in place as prescribed Yes Yes Yes Has compression in place as prescribed N/A N/A N/A Has offloadiing in place as prescribed Yes Yes Yes Experienced any changes in pain level or No No No management Left Footwear Surgical Shoe Regular Shoe Regular Shoe with pressure relief insole Right Footwear Regular Shoe Surgical Shoe Surgical Shoe with pressure with pressure relief insole relief insole Pain Scale: 0-10 Numeric Is Patient Pain Free? Yes Yes Yes 12/11/21 14:27 WC - Today's Visit Information Type of service Follow-up Visit (Physician/CUT OUT PRESS OPERATOR ) Arrival Mode Ambulatory Transfer Assistance None Patient Identification Verified (Name & Yes ) Patient Requires Transmission-Based No Precautions Height and Weight Body Mass Index (BMI) 28.9 BMI Classification Overweight Vital Signs Temperature (97.8 F-99.1 F) 98 F Temperature Source Temporal Pulse Rate (60-100) 55 L Pulse Location Monitor Respiratory Rate (12-18) 16 Respiratory rate source Observation Oxygen Delivery Method Room Air Blood Pressure (90/60-120/80) 163/87 H Blood Pressure Mean (mm Hg) 112 Source Monitor Position Sitting Blood Pressure Location Left Arm History Since Last Visit- (Skip if this is Patient's initial visit) Have you changed medications since your No last visit? Any new allergies or adverse reactions No Had a fall/change in ADL's that may No increase risk of falls Signs or symptoms of abuse and/or No neglect since last visit Have you been in the hospital since your No last visit? Has dressing in place as prescribed Yes Has compression in place as prescribed N/A Has offloadiing in place as prescribed Yes Experienced any changes in pain level or No management Left Footwear Regular Shoe Right Footwear Surgical Shoe with pressure relief insole Pain Scale: 0-10 Numeric Is Patient Pain Free? Yes WC - Nurse 1 - General Ulcer Measurement Start: 11/20/21 14:23 Freq: Status: Active Protocol: Activity Type Activity Date Activity User E-sign Co-sign Detail Recorded Client Recorded Date Recorded By Document 11/20/21 14:24 [facility] [id number] 11/20/21 14:26 [facility] Document 11/27/21 14:34 DL [id number] 11/27/21 14:39 DL Document 12/04/21 14:24 [facility] [id number] 12/04/21 14:30 [facility] Document 12/11/21 14:27 [facility] [id number] 12/11/21 14:32 [facility] 11/20/21 11/27/21 12/04/21 14:24 14:34 14:24 Wound Center Nurse 1 #2 R 2nd Toe -Combined with other wound No No -Current Size (cm) - Length 0.6 0.2 0.1 -Current Size (cm) - Width 0.4 0.2 0.1 -Current Size (cm) - Depth 0.1 0.2 0.1 -Total Square Cm 0.24 0.04 0.01 -Date of Last Picture (Recall this 11/20/21 12/04/21 field) -Photo Taken Yes No Yes -Epithelialization None Present Large 67-100% -Tunneling No No -Undermining/Tunneling No No -Circular Undermining No No -Exudate Amt Small None Present None Present -Exudate Type Serosanguineous -Wound Margin Distinct, Outline Attached -Granulation Amt Medium (34-66%) Small (1-33%) -Granulation Quality Kinsey Kinsey -Slough/Fibrin Yes -Necrosis Amt Medium (34-66%) None Present (0 %) -Necrotic Tissue Type Adherent Slough -Structure Exposed N/A -Texture (Mariama-wound Skin Appearance) Assessed,Callus Callus,Scarring Assessed,Callus ,Scarring -Moisture (Mariama-wound Skin Appearance) Assessed,Dry/ Dry/Scaly Assessed,Dry/ Scaly Scaly -Color (Mariama-wound Skin Appearance) Assessed No Abnormality Assessed -Temperature (Mariama-wound Skin No Abnormality No Abnormality No Abnormality Appearance) (Pt Warm) (Pt Warm) (Pt Warm) -Tenderness on Palpation (Mariama-wound No No No Skin Appearance) -Ulcer Cleansing Rinsed/ Rinsed/ Rinsed/ Irrigated with Irrigated with Irrigated with Saline Saline Saline -Foul Odor after Cleansing No No No -Anesthetic Used 5% Lidocaine 5% Lidocaine 5% Lidocaine Gel Gel Gel 12/11/21 14:27 Wound Center Nurse 1 #2 R 2nd Toe -Combined with other wound No -Current Size (cm) - Length 0.1 -Current Size (cm) - Width 0.1 -Current Size (cm) - Depth 0.1 -Total Square Cm 0.01 -Date of Last Picture (Recall this 12/11/21 field) -Photo Taken Yes -Epithelialization Large 67-100% -Tunneling No -Undermining/Tunneling No -Circular Undermining No -Exudate Amt None Present -Exudate Type -Wound Margin Distinct, Outline Attached -Granulation Amt None Present (0 %) -Granulation Quality -Slough/Fibrin Yes -Necrosis Amt Small (1-33%) -Necrotic Tissue Type Adherent Slough -Structure Exposed -Texture (Mariama-wound Skin Appearance) Assessed, Scarring -Moisture (Mariama-wound Skin Appearance) Assessed -Color (Mariama-wound Skin Appearance) Assessed -Temperature (Mariama-wound Skin No Abnormality Appearance) (Pt Warm) -Tenderness on Palpation (Mariama-wound No Skin Appearance) -Ulcer Cleansing Rinsed/ Irrigated with Saline -Foul Odor after Cleansing No -Anesthetic Used 5% Lidocaine Gel WC - Nurse 2 - General Ulcer CM Notes Start: 11/20/21 14:23 Freq: Status: Active Protocol: Activity Type Activity Date Activity User E-sign Co-sign Detail Recorded Client Recorded Date Recorded By Document 11/20/21 14:38 [id number] 11/20/21 14:40 Document 11/27/21 14:47 [id number] 11/27/21 14:48 Document 12/04/21 14:41 [id number] 12/04/21 14:42 Document 12/11/21 14:50 [id number] 12/11/21 14:52 11/20/21 11/27/21 12/04/21 14:38 14:47 14:41 Wound Center Nurse 2 #2 R 2nd Toe -Time 14:39 14:47 14:41 -Correct Patient Yes Yes Yes -Correct Side, Site, Position Yes Yes Yes -Correct Procedure Yes Yes Yes -Procedure Performed Yes Yes Yes -Type of Procedure Debridement Debridement Debridement -Clinical Debridement Subcutaneous Subcutaneous Subcutaneous -Tissue Removed Subcutaneous Subcutaneous Subcutaneous -Post Debridement (cm) - Length 0.6 0.3 0.1 -Post Debridement (cm) - Width 0.5 0.2 0.1 -Post Debridement (cm) - Depth 0.1 0.1 0.1 -Total Square (Post) (cm) 0.30 0.06 0.01 -Area of Debridement (cm) - Length 0.6 0.3 0.1 -Area of Debridement (cm) - Width 0.5 0.2 0.1 -Total Square (Area) (cm) 0.30 0.06 0.01 -Tunneling No No No -Undermining/Tunneling No No No -Circular Undermining No No No -Wound/Ulcer Outcome Not Healed Not Healed Not Healed -Ulcer Cleansing Rinsed/ Rinsed/ Rinsed/ Irrigated with Irrigated with Irrigated with Saline Saline Saline -Foul Odor after Cleansing No No No -Bioengineered Tissue No No No -Bleeding Controlled with Pressure Pressure Pressure -Treatment Response Procedure Procedure Procedure Tolerated Well Tolerated Well Tolerated Well -Offloading Yes Yes Yes -Type of Offloading Surgical Shoe Surgical Shoe Surgical Shoe -Debridement - Subq, 1st 20sq cm Yes Yes Yes Pain Scale: 0-10 Numeric Is Patient Pain Free? Yes Yes Yes 12/11/21 14:50 Wound Center Nurse 2 #2 R 2nd Toe -Time -Correct Patient No -Correct Side, Site, Position No -Correct Procedure No -Procedure Performed No -Type of Procedure -Clinical Debridement -Tissue Removed -Post Debridement (cm) - Length 0 -Post Debridement (cm) - Width 0 -Post Debridement (cm) - Depth 0 -Total Square (Post) (cm) 0 -Area of Debridement (cm) - Length 0 -Area of Debridement (cm) - Width 0 -Total Square (Area) (cm) 0 -Tunneling No -Undermining/Tunneling No -Circular Undermining -Wound/Ulcer Outcome Healed- Epithelialized -Ulcer Cleansing -Foul Odor after Cleansing -Bioengineered Tissue -Bleeding Controlled with -Treatment Response -Offloading -Type of Offloading -Debridement - Subq, 1st 20sq cm Pain Scale: 0-10 Numeric Is Patient Pain Free? Yes - Nurse 3 - General Ulcer D/C NN Start: 11/20/21 14:23 Freq: Status: Active Protocol: Activity Type Activity Date Activity User E-sign Co-sign Detail Recorded Client Recorded Date Recorded By Document 11/20/21 14:45 [facility] [id number] 11/20/21 14:46 [facility] Document 11/27/21 14:55 [facility] [id number] 11/27/21 14:55 [facility] Document 12/04/21 14:51 RB [id number] 12/04/21 14:52 RB Document 12/11/21 14:55 [id number] 12/11/21 14:55 JF 11/20/21 11/27/21 12/04/21 14:45 14:55 14:51 Wound Care Nurse 3 #2 R 2nd Toe -Ulcer Cleansing Rinsed/ Rinsed/ Rinsed/ Irrigated with Irrigated with Irrigated with Saline Saline Saline -Foul Odor after Cleansing No No -Primary Dressing Applied Other Other -Other Dressing HYDROGEL hydrogel hydrogel -Primary Dressing Covered/Secured with Dry Gauze, Dry Gauze, Dry Gauze,Dry Secured with Secured with Gauze & Roll Tape Tape Gauze,Secured with Tape Treatment Response Procedure Procedure Procedure Tolerated Well Tolerated Well Tolerated Well Pain Scale: 0-10 Numeric Is Patient Pain Free? Yes Yes Yes WC - Visit Discharge Discharge Condition Stable Stable Stable Ambulatory Status Ambulatory Ambulatory Ambulatory Transportation Private Auto Private Auto Private Auto Medication Reconcilliation completed & No provided to patient/care provider Clinical Summary of Care Provided Yes 12/11/21 14:55 Wound Care Nurse 3 #2 R 2nd Toe -Ulcer Cleansing Rinsed/ Irrigated with Saline -Foul Odor after Cleansing No -Primary Dressing Applied -Other Dressing -Primary Dressing Covered/Secured with Dry Gauze, Secured with Tape Treatment Response Pain Scale: 0-10 Numeric Is Patient Pain Free? Yes WC - Visit Discharge Discharge Condition Stable Ambulatory Status Ambulatory Transportation Private Auto Medication Reconcilliation completed & Yes provided to patient/care provider Clinical Summary of Care Provided Yes Assessment/Plan Assessment/Plan (1) Type 2 diabetes mellitus with diabetic polyneuropathy: CODE(S): E11.42 - Type 2 diabetes mellitus with diabetic polyneuropathy (2) Hammer toe of right foot: CODE(S): M20.41 - Other hammer toe(s) (acquired), right foot (3) Chronic ulcer of right foot with fat layer exposed: CODE(S): L97.512 - Non-pressure chronic ulcer of other part of right foot with fat layer exposed PLAN: Plan I reviewed and discussed his case today.? Debridement was not performed today because the ulcer site has healed The following work up and care recommendations were made: Dressing: dry guaze for one week and then discontinue Wash: Antibacterial soap and water. 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 there are no local signs infection today and he was advised to complete his 14-day course of antibiotics and to monitor for return of local infection or systemic illness. Pain: This is not noted today due to his neuropathic status Host factors: He has diabetes with neuropathy and history of bariatric surgery.? He took Terry to optimize wound healing. I answered all the patient's questions.? To return to the wound healing center in 2 weeks or call sooner if the patient has any questions or concerns for healed wound check. Note: [employer] speech recognition cardiac cath lab manager software was used to create portions of this document. Sound-alike and misspelled words, as well as other cardiac cath lab manager errors may be contained in the documentation. The medical decision making level is low.? There is noted low risk of morbidity after considering this treatment plan and diagnostic data.? The problems addressed require a low medical decision making level which includes two or more minor problems, a stable chronic illness, or an acute uncomplicated illness or injury.
== END 2021-12-18 23:59 | disposition home or self-care (01) ==
LOC: WC 14:30
PROVIDERS: PCP Family Medicine; Visit Provider Podiatrist
DX: E11.621 Type 2 diabetes mellitus with foot ulcer (principal); L97.512 Non-pressure chronic ulcer of other part of right foot with fat layer exposed; E11.42 Type 2 diabetes mellitus with diabetic polyneuropathy; M20.41 Other hammer toe(s) (acquired), right foot
CPT/HCPCS: 11042; 99213; G0463

== ENCOUNTER 2021-12-25 14:00 | Outpatient (RCR) | payer OTHER, SELFPAY ==
[2021-12-19 00:38] VITALS: BP 163/87; PULSE 55; RESP 16; TEMP 36.6; BMI 28.9
[2021-12-25 14:07] VITALS: BP 169/78; PULSE 51; RESP 18; TEMP 36.1; BMI 28.9
--- NOTE | 2021-12-25 15:45 | PCM.WC.PN ---
History of Present Illness Date of Service: 12/25/21 Chief Complaint: right second toe ulcer History of Wound: This is a 46-year-old male who is following up for right second toe ulcer. He is known to suffer from diabetic peripheral neuropathy also. The patient has recently been wearing a postoperative shoe for offloading purposes within a fabricated offloading pocket. He resumed regular shoes. His ulcer healed and he is here for a healed check. He denies drainage. Progress of Wound: healed Objective Data Objective Data Vital Signs: Vital Signs Temp Pulse Resp BP 97 F L 51 L 18 169/78 H 12/25/21 14:07 12/25/21 14:07 12/25/21 14:07 12/25/21 14:07 Weight: 110.644 kg Body Mass Index (BMI) 28.9 Debridement Note Debridement Note Post-Debridement Measurements and Additional Note: Post-Debridement Measurements/Treatment WC - Nurse 1 - General Ulcer Assessment Start: 12/25/21 14:07 Freq: Status: Active Protocol: MONI Activity Type Activity Date Activity User E-sign Co-sign Detail Recorded Client Recorded Date Recorded By Document 12/25/21 14:07 SRIDEVI [id number] 12/25/21 14:08 SRIDEVI 12/25/21 14:07 WC - Today's Visit Information Type of service Follow-up Visit (Physician/DRAFTER (CAD) ELECTRICAL ) Arrival Mode Ambulatory Transfer Assistance None Patient Identification Verified (Name & Yes ) Patient Requires Transmission-Based No Precautions Height and Weight Body Mass Index (BMI) 28.9 BMI Classification Overweight Vital Signs Temperature (97.8 F-99.1 F) 97 F L Temperature Source Temporal Pulse Rate (60-100) 51 L Pulse Location Monitor Respiratory Rate (12-18) 18 Respiratory rate source Observation Blood Pressure (90/60-120/80) 169/78 H Blood Pressure Mean (mm Hg) 108 Source Monitor Position Semi-Fowlers Blood Pressure Location Left Arm History Since Last Visit- (Skip if this is Patient's initial visit) Have you changed medications since your No last visit? Any new allergies or adverse reactions No Had a fall/change in ADL's that may No increase risk of falls Signs or symptoms of abuse and/or No neglect since last visit Have you been in the hospital since your No last visit? Has dressing in place as prescribed Yes Has compression in place as prescribed No Has offloadiing in place as prescribed No Experienced any changes in pain level or No management Pain Scale: 0-10 Numeric Is Patient Pain Free? Yes - Nurse 1 - General Ulcer Measurement Start: 12/25/21 14:07 Freq: Status: Active Protocol: Activity Type Activity Date Activity User E-sign Co-sign Detail Recorded Client Recorded Date Recorded By Document 12/25/21 14:07 [id number] 12/25/21 14:08 RB 12/25/21 14:07 Wound Center Nurse 1 #2 R 2nd Toe -Current Size (cm) - Length 0 -Current Size (cm) - Width 0 -Current Size (cm) - Depth 0 -Total Square Cm 0 -Epithelialization Large 67-100% DAVIN - Nurse 2 - General Ulcer CM Notes Start: 12/25/21 14:07 Freq: Status: Active Protocol: Activity Type Activity Date Activity User E-sign Co-sign Detail Recorded Client Recorded Date Recorded By Document 12/25/21 14:17 [id number] 12/25/21 14:20 [id number] 12/25/21 14:17 Wound Center Nurse 2 -Correct Patient No -Correct Side, Site, Position No -Correct Procedure No -Procedure Performed No -Post Debridement (cm) - Length 0 -Post Debridement (cm) - Width 0 -Post Debridement (cm) - Depth 0 -Total Square (Post) (cm) 0 -Area of Debridement (cm) - Length 0 -Area of Debridement (cm) - Width 0 -Total Square (Area) (cm) 0 -Wound/Ulcer Outcome Healed- Epithelialized Pain Scale: 0-10 Numeric Is Patient Pain Free? Yes - Nurse 3 - General Ulcer D/C NN Start: 12/25/21 14:07 Freq: Status: Active Protocol: Activity Type Activity Date Activity User E-sign Co-sign Detail Recorded Client Recorded Date Recorded By Document 12/25/21 14:20 [id number] 12/25/21 14:21 12/25/21 14:20 Is Patient Pain Free? Yes - Visit Discharge Discharge Condition Stable Ambulatory Status Ambulatory Transportation Private Auto Medication Reconcilliation completed & Yes provided to patient/care provider Clinical Summary of Care Provided Yes Assessment/Plan Assessment/Plan (1) Type 2 diabetes mellitus with diabetic polyneuropathy: CODE(S): E11.42 - Type 2 diabetes mellitus with diabetic polyneuropathy (2) Hammer toe of right foot: CODE(S): M20.41 - Other hammer toe(s) (acquired), right foot (3) Chronic ulcer of right foot with fat layer exposed: CODE(S): L97.512 - Non-pressure chronic ulcer of other part of right foot with fat layer exposed PLAN: Plan I reviewed and discussed his case today.? Debridement was not performed today because the ulcer site has healed The following work up and care recommendations were made: Dressing: discontinue Wash: Antibacterial soap and water. 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 there are no local signs infection today and he was advised to complete his 14-day course of antibiotics and to monitor for return of local infection or systemic illness. Pain: This is not noted today due to his neuropathic status Host factors: He has diabetes with neuropathy and history of bariatric surgery.? He took Terry to optimize wound healing. I answered all the patient's questions.? He is discharged from the wound healing center at this time and will follow-up as needed. To follow-up with the foot and ankle Center for other foot and ankle concerns and for risk assessment. Note: [employer] speech recognition racking machine operator software was used to create portions of this document. Sound-alike and misspelled words, as well as other racking machine operator errors may be contained in the documentation. The medical decision making level is straightforward. The problem treated is minor or self-limiting. There is noted minimal risk of morbidity after considering this treatment plan and diagnostic data.
== END 2021-12-26 10:21 | disposition home or self-care (01) ==
LOC: WC 14:00
PROVIDERS: PCP Family Medicine; Visit Provider Podiatrist
DX: Z09 Encounter for follow-up examination after completed treatment for conditions other than malignant neoplasm (principal); E11.42 Type 2 diabetes mellitus with diabetic polyneuropathy; Z98.84 Bariatric surgery status
CPT/HCPCS: 99212; G0463

== ENCOUNTER → 2022-01-04 | Outpatient (CLI) | payer OTHER, SELFPAY ==
[2022-01-04 10:58] LABS: Hematocrit 41.8 % (40-54); Mean Corp Hgb Conc 35.9 g/dL (32-36); Mean Corpuscular Hgb 30.2 pg (27.0-32.0); Mean Corpuscular Volume 84.1 fL (80-94); Mean Platelet Vol. 10.1 fl (6.2-12.0); Platelet Count 208 K/mm3 (150-450); RBC Distribution Width CV 11.6 % (11.6-14.6); Red Blood Count 4.97 M/mm3 (4.6-6.2); White Blood Count 5.7 K/mm3 (4.4-11.0)
[2022-01-04 11:23] LABS: Anion Gap 6 (5-15); BUN 13 mg/dL (7-18); BUN/Creat Ratio 11.8 RATIO (10-20); Calcium,Total 9.6 mg/dL (8.5-10.1); Chloride 104 mmol/L (98-107); Cholesterol 140 mg/dL (200); EST Glomerular Filtration Rate 76 mL/min (>60); Est Glom Filt Rate - Afr Amer 92 mL/min (>60); Glucose 160 mg/dL (74-106); High Density Lipoprotein 46 mg/dL; PSA,Total - Annual Screen 0.47 ng/mL (0.00-4.00); Sodium Level 140 mmol/L (136-145); Thyroid Stim Hormone (TSH) 1.97 uIU/mL (0.358-3.74); Triglycerides 139 mg/dL; Very Low Density Lipoprotein 28 mg/dL (5-40)
== END | disposition home or self-care (01) ==
LOC: LAB 10:36
PROVIDERS: PCP Family Medicine; Referring Provider Family Medicine; Visit Provider Family Medicine
DX: E11.65 Type 2 diabetes mellitus with hyperglycemia (principal); Z79.4 Long term (current) use of insulin; I10 Essential (primary) hypertension; Z12.5 Encounter for screening for malignant neoplasm of prostate
CPT/HCPCS: 36415; 80048; 80061; 84153; 84443; 85027; G0103

== ENCOUNTER → 2022-01-10 | Outpatient (CLI) | payer OTHER, SELFPAY ==
--- NOTE | 2022-01-10 14:00 | ART_ITS ---
Reason For Study: RIGHT 2ND TOE ULCER Left Segmental Pressures Left brachial= 154mmHg. Left posterior tibial artery = >254mmHg. Left dorsalis pedis artery = 192mmHg. The left posterior tibial artery waveforms are triphasic. The left dorsalis pedis waveforms are triphasic. Right Segmental Pressures Right brachial= 167mmHg. Right posterior tibial artery = 211mmHg. Right dorsalis pedis artery = >254mmHg. The right posterior tibial artery waveforms are triphasic. The right dorsalis pedis waveforms are triphasic. Indices The right resting ankle brachial index is 1.26. The right ankle brachial index by the dorsalis pedis is -NC-. The right ankle brachial index by the posterior tibial artery is 1.26. The left resting ankle brachial index is 1.15. The left ankle brachial index by the dorsalis pedis is 1.15. The left ankle brachial index by the posterior tibial artery is -NC-. VL/Lower Ext Art Exam w/o Exercis Interpretation Summary Triphasic Doppler waveforms are noted at ankle level bilaterally. Pulse-volume recordings appear satisfactory at low thigh, calf, and ankle levels bilaterally. Resting ankle-br achial indices are normal bilaterally. There is no evidence of significant arterial occlusive disease in the lower ext remities bilaterally. Ordering Physician: Jill Schroeder Referring Physician: Vicenta Rai Performed By: Yasmin Noriega RVT, RDCS
== END | disposition home or self-care (01) ==
LOC: CVS 13:59
PROVIDERS: PCP Family Medicine; Referring Provider Podiatrist; Visit Provider Podiatrist
DX: L97.512 Non-pressure chronic ulcer of other part of right foot with fat layer exposed (principal); I73.89 Other specified peripheral vascular diseases
CPT/HCPCS: 93923

== ENCOUNTER 2022-09-18 21:56 | Outpatient (CLI) | payer OTHER, SELFPAY | END 2022-09-18 23:59 | disposition home or self-care (01) | PROVIDERS: Visit Provider Nurse Practitioner | DX: E11.621 Type 2 diabetes mellitus with foot ulcer (principal); L97.509 Non-pressure chronic ulcer of other part of unspecified foot with unspecified severity; S91.102A Unspecified open wound of left great toe without damage to nail, initial encounter | CPT/HCPCS: 87070; 87205 ==

== ENCOUNTER → 2022-10-29 | Outpatient (CLI) | payer OTHER, SELFPAY | END | disposition home or self-care (01) | PROVIDERS: Referring Provider Podiatrist; Visit Provider Podiatrist | DX: L03.116 Cellulitis of left lower limb (principal) | CPT/HCPCS: 87070; 87077; 87186; 87205 ==

== ENCOUNTER → 2022-12-08 | Outpatient (CLI) | payer OTHER, SELFPAY ==
[2022-12-08 22:32] LABS: Absolute Lymphocyte Count 0.81 X10^3/uL (0.83-4.51); Absolute Neutrophil Count 2.6 X10^3/uL (2.0-7.7); Basophil# 0.02 X10^3/uL; Basophil% 0.5 % (0-1); Eosinophil# 0.01 X10^3/uL; Eosinophils% 0.3 % (0-5); Hematocrit 43.9 % (40-54); Hemoglobin 15.4 g/dL (13.0-16.5); Lymphocyte # 0.81 X10^3/ul (0.83-4.51); Lymphocyte % 21.3 % (19-41); Mean Corp Hgb Conc 35.1 g/dL (32-36); Mean Corpuscular Hgb 30.1 pg (27.0-32.0); Mean Corpuscular Volume 85.7 fL (80-94); Mean Platelet Vol. 11.1 fl (6.2-12.0); Monocyte# 0.35 X10^3/uL; Monocyte% 9.2 % (0-10); NRBC Flagged by Analyzer 0 % (0-5); Neutrophil # 2.61 X10^3/uL (2.7-7.7); Neutrophil % 68.7 % (47-70); Platelet Count 195 K/mm3 (150-450); RBC Distribution Width CV 11.8 % (11.6-14.6); Red Blood Count 5.12 M/mm3 (4.6-6.2); White Blood Count 3.8 K/mm3 (4.4-11.0)
[2022-12-08 23:33] LABS: ALB/GLOB Ratio 0.9 RATIO (0.9-2.4); AST(SGOT) 23 U/L (15-37); Alanine Aminotransfer ALT/SGPT 57 U/L (16-61); Albumin, Serum 3.8 g/dL (3.2-5.0); Alkaline Phosphatase 78 U/L (45-117); Anion Gap 4 (5-15); BUN 16 mg/dL (7-18); BUN/Creat Ratio 12.7 RATIO (10-20); Chloride 100 mmol/L (98-107); Creatinine, Serum 1.26 mg/dL (0.70-1.30); EST Glomerular Filtration Rate 65 mL/min (>60); Est Glom Filt Rate - Afr Amer 79 mL/min (>60); Globulin 4.4 g/dL (2.2-4.2); Glucose 173 mg/dL (74-106); Potassium 4.3 mmol/L (3.5-5.1); Protein, Total 8.2 g/dL (6.4-8.2); Sodium Level 135 mmol/L (136-145)
== END | disposition home or self-care (01) ==
PROVIDERS: Visit Provider Nurse Practitioner
DX: L97.509 Non-pressure chronic ulcer of other part of unspecified foot with unspecified severity (principal); E08.621 Diabetes mellitus due to underlying condition with foot ulcer
CPT/HCPCS: 80053; 85025; 87070; 87075; 87077; 87186; 87205

== ENCOUNTER 2022-12-11 18:35 | Observation (INO) | payer OTHER, SELFPAY ==
[2022-12-11 18:04] VITALS: BP 132/70; PULSE 56; RESP 18; TEMP 36.6; O2SAT 95
[2022-12-11 18:20] VITALS: BMI 28.8
--- NOTE | 2022-12-11 18:25 | PCM.HP.STD ---
HPI - General General Date of Admission: 12/11/22 Date of Service: 12/11/22 Chief Complaint: Diabetic foot wound infection HPI Narrative ALEIXS LACKEY is a 47 M with history of type 2 diabetes with neuropathy, hypertension, s/p Vu-en-Y gastric bypass surgery and BPH who presented to [facility] on 12/11/2022 as a direct admission for a diabetic foot wound infection. Patient seen at bedside, present. Patient sitting comfortably in bedside chair, conversing normally, in no acute distress. He currently denies any pain of the left foot. He denies any fevers or chills over the last few days. He reports mildly decreased p.o. intake over that timeframe as he generally has not been feeling that well. He denies any chest pain or shortness of breath. Has been able to ambulate fine despite the foot wounds and actually has gone to work over the past several days. Patient notably has had this diabetic foot wound on his left foot for the past [address] Hooper with podiatry. Saw his PCP in the office on 12/08 for fevers to 103F and worsening erythema and pain around the foot wound site. Debrided foot wound in the office and sent cultures. Did not start on antibiotics. Foot x-ray on 12/09 showed no acute abnormalities or bony erosion to suggest osteomyelitis. Saw wound therapy in the office on 12/10, had wound dressed but no other changes were made. Labs on admission were notable for WBC count of 5.6, CRP of 10.6, electrolytes normal, kidney function normal. [facility] Medical History Bone fracture Diabetes type 2, controlled Elevated liver enzymes Fatty liver frozen shoulder,r arm High cholesterol HTN (hypertension) Neuropathy Seasonal allergies Home Medications blood sugar diagnostic (OneTouch Verio test strips) #10 ea 02/11/19 [History Last Taken Unknown] blood-glucose meter (OneTouch Verio Meter) #1 ea 02/11/19 [History Last Taken Unknown] cholecalciferol (vitamin D3) 1,250 mcg (50,000 unit) capsule 50,000 unit PO QWEEK #12 caps 03/08/19 [Rx Last Taken Unknown] metoprolol succinate 50 mg tablet,extended release 24 hr 100 mg PO DAILY 03/08/19 [History Last Taken Unknown] metformin 500 mg tablet 500 mg PO BID #180 tabs 05/26/19 [Rx Last Taken Unknown] amlodipine 5 mg tablet 5 mg PO DAILY 02/07/22 [History Last Taken Unknown] lisinopril 20 mg-hydrochlorothiazide 12.5 mg tablet 1 tab PO DAILY 02/07/22 [History Last Taken Unknown] tamsulosin 0.4 mg capsule 0.4 mg PO DAILY 02/07/22 [History Last Taken Unknown] ascorbate calcium (vitamin C) 814 mg/gram oral powder (Vitamin C (ascorbate calcium)) mg PO 12/10/22 [History Last Taken Unknown] biotin 100 mcg PO DAILY 12/10/22 [History Last Taken Unknown] calcium citrate 500 mg PO DAILY 12/10/22 [History Last Taken Unknown] pjwlwpxa-idls-ysq-folic acid 18 mg-0.4 mg tablet (One Daily Complete) 1 tab PO DAILY 12/10/22 [History Last Taken Unknown] multivitamin-iron (hematinic) tab 12/10/22 [History Last Taken Unknown] vit B12 50 mcg-iodine 75 mcg-mag 100 pn-zord-qyvbsyqx-herb 193 capsule 1 cap PO DAILY 12/10/22 [History Last Taken Unknown] zinc 50 mg tablet 50 mg PO DAILY 12/10/22 [History Last Taken Unknown] levofloxacin 500 mg tablet 500 mg PO DAILY #14 tabs 12/11/22 [Rx Last Taken Unknown] mupirocin 2 % topical ointment 1 applic topical DAILY 12/11/22 [History Last Taken Unknown] Allergy/AdvReac Type Severity Reaction Status Date / Time amoxicillin [From Augmentin] Allergy Severe Rash Verified 12/10/22 11:43 clavulanic acid Allergy Severe Rash Verified 12/10/22 11:43 [From Augmentin] Penicillins Allergy Unknown Hives Verified 02/07/22 08:51 Family History Mother Asthma Hypertension Father Hypertension Grandmother Cancer Unknown Arthritis Diabetes Other Diverticulitis Family history of high cholesterol Glaucoma Heart disease Kidney disease Renal failure Surgical History H/O bariatric surgery History of liver biopsy Social History Smoking Status: Former smoker alcohol intake: never substance use type: does not use ROS Constitutional Constitutional: Denies chills, fatigue, fever(s) or weakness Cardiovascular Cardiovascular: Denies chest pain, dyspnea on exertion, edema or lightheadedness Respiratory/Chest Respiratory/Chest: Denies cough Gastrointestinal Gastrointestinal: Denies abdominal pain Vital Signs Vital Signs Vital Signs: 12/11/22 17:59 12/11/22 18:04 Temperature 97.9 F Temperature Source Oral Pulse Rate 56 L Respiratory Rate 18 Respiratory Effort Normal Non-Labored Respiratory Depth Normal Respiratory Pattern Normal Blood Pressure 132/70 H Blood Pressure Mean 90 Pulse Ox 95 Oxygen Delivery Method Room Air Room Air Physical Exam Const alert, oriented x3, no apparent distress, average body habitus, healthy appearing and well nourished Constitutional Narrative: Pleasant, sitting comfortably in bedside chair, conversing normally, no acute distress. General Appearance: cooperative, comfortable, well kempt and well developed HEENT normocephalic, head/scalp atraumatic, hearing grossly normal bilaterally, nasal mucous membranes and turbinates normal and moist oral mucous membranes Eyes PERRL, EOMs intact bilaterally and conjunctivae normal Neck full ROM, no lymphadenopathy and supple Lymph Lymphatic: no lymphadenopathy noted Chest inspection of chest normal Resp normal respiratory effort, normal air movement, no use of accessory muscles and clear to auscultation bilaterally Cardio regular rate, regular rhythm, no murmurs and peripheral pulses 2+ throughout GI normal to inspection, nondistended, normoactive bowel sounds, soft to palpation, non-tender and non-distended Back/Spine normal ROM Extremity Extremity Narrative: Well-circumscribed wound noted on the bottom of outside of left foot. Covered by Band-Aid, which I removed to inspect and then replaced. Only mild erythema surrounding the wound. Skin no rashes or lesions noted Psych mental status grossly normal Results Lab / Micro Data 12/11/22 20:16 12/11/22 20:16 Assessment & Plan Assessment/Plan (1) Nonhealing nonsurgical wound: PLAN: Plan Patient is a 47 M with history of type 2 diabetes with neuropathy, hypertension, s/p Vu-en-Y gastric bypass surgery and BPH who presented to [facility] on 12/11/2022 as a direct admission for a diabetic foot wound infection. 1. Diabetic foot wound infection Known foot wound, has been following with Dr. Hooper with podiatry for the last 6 months. Now with concern for wound infection with possible osteomyelitis. Labs and imaging as noted above. Wound cultures notably growing multiple organisms including Acinetobacter, gram-negative bridgett lactose duralumin mechanic, and gram-positive cocci (possible Enterococcus). Acinetobacter is notably pansensitive. -Podiatry consulted. Labs ordered including ESR and CRP. Despite negative x-ray, still have moderate to high concern for osteomyelitis given clinical picture. Will obtain MRI left foot with and without contrast. We will start vancomycin and cefepime (penicillin allergy) for coverage of wound infection. Infectious disease consulted. Pain control with Tylenol as needed, can add other agents as needed. PT/OT/case management consulted. 2. Hypertension - Home medications of amlodipine, Toprol, hydrochlorothiazide and lisinopril. Hold lisinopril for now in case of need for possible procedure, continue other home agents. 3. Type 2 diabetes ? Only home medication at this time is metformin 500 mg twice daily. Was previously on insulin, has not required this for some time since his gastric bypass surgery. Start sliding scale insulin while inpatient, adjust as needed. 4. BPH ? Continue home Flomax DVT prophylaxis: SCDs CODE STATUS: Full code, verified Expected disposition: Home, 2 to 3 days Total clinical time spent by myself addressing the patient's medical issues, reviewing all the data, and collaborating with patient's care team: 55 minutes. Charges/Coding Visit Charges Inpatient E&M: 21765 Init Hosp L2
[2022-12-11 20:26] LABS: Absolute Lymphocyte Count 2.12 X10^3/uL (0.83-4.51); Absolute Neutrophil Count 2.8 X10^3/uL (2.0-7.7); Basophil# 0.03 X10^3/uL; Basophil% 0.5 % (0-1); Eosinophil# 0.16 X10^3/uL; Eosinophils% 2.9 % (0-5); Hematocrit 40.3 % (40-54); Hemoglobin 14.3 g/dL (13.0-16.5); Lymphocyte # 2.12 X10^3/ul (0.83-4.51); Lymphocyte % 38.1 % (19-41); Mean Corp Hgb Conc 35.5 g/dL (32-36); Mean Corpuscular Hgb 30.3 pg (27.0-32.0); Mean Corpuscular Volume 85.4 fL (80-94); Mean Platelet Vol. 10.2 fl (6.2-12.0); Monocyte% 7.2 % (0-10); NRBC Flagged by Analyzer 0 % (0-5); Neutrophil # 2.84 X10^3/uL (2.7-7.7); Neutrophil % 51.1 % (47-70); Platelet Count 202 K/mm3 (150-450); RBC Distribution Width CV 11.6 % (11.6-14.6); RBC Distribution Width SD 35.8 fl (35.1-43.9); Red Blood Count 4.72 M/mm3 (4.6-6.2); White Blood Count 5.6 K/mm3 (4.4-11.0)
[2022-12-11 20:42] LABS: Anion Gap 5 (5-15); BUN 21 mg/dL (7-18); BUN/Creat Ratio 18.1 RATIO (10-20); Calcium,Total 9.7 mg/dL (8.5-10.1); Chloride 100 mmol/L (98-107); Creatinine, Serum 1.16 mg/dL (0.70-1.30); EST Glomerular Filtration Rate 71 mL/min (>60); Est Glom Filt Rate - Afr Amer 86 mL/min (>60); Estimated Creatinine Clearance 98.15 ml/min; Glucose 163 mg/dL (74-106); Sodium Level 135 mmol/L (136-145)
[2022-12-11 21:43] LABS: Erythrocyte Sedimentation Rate 28 mm/hr (0-20)
[2022-12-11 21:52] VITALS: BP 142/81; PULSE 52; RESP 18; TEMP 36.6; O2SAT 97
[2022-12-11 22:02] LABS: Hemoglobin A1c 7.8 % (3.8-5.6)
[2022-12-11] MEDS: Insulin Lispro 100 UNIT/ML INSULN.PEN SC (22:02)
[2022-12-11] MEDS: 0.9% Saline Lock 10 ML Syringe IV (22:08)
[2022-12-11 22:15] LABS: Bedside Glucose 275 mg/dL (74-106)
--- NOTE | 2022-12-12 03:00 | PCM.RX.CS ---
Consult Antibiotic Management Pharmacy has been consulted to manage selected antiobiotic: Vancomycin Type of Intervention Type of Consult: New start Labs Labs: Sodium 135 mmol/L (136-145) L 12/11/22 20:16 Potassium 4.0 mmol/L (3.5-5.1) 12/11/22 20:16 Chloride 100 mmol/L (98-107) 12/11/22 20:16 Carbon Dioxide 30.0 mmol/L (21.0-32.0) 12/11/22 20:16 Anion Gap 5 (5-15) 12/11/22 20:16 BUN 21 mg/dL (7-18) H 12/11/22 20:16 Creatinine 1.16 mg/dL (0.70-1.30) 12/11/22 20:16 Est GFR (MDRD) Af Amer 86 mL/min (>60) 12/11/22 20:16 Est GFR (MDRD) Non-Af 71 mL/min (>60) 12/11/22 20:16 BUN/Creatinine Ratio 18.1 RATIO (10-20) 12/11/22 20:16 Glucose 163 mg/dL (74-106) H 12/11/22 20:16 Goal Trough Goal Trough: 15-20 mcg/mL Pharmacy Plan for Drug Dosing Pharmacy Plan for Drug Dosing: Pharmacy Service will continue to monitor and adjust dosing as required. Follow-Up Labs Follow-Up Labs: Trough: Vancomycin Date/Time Labs Ordered Labs to be done on [date and time ordered]: 12/12 @ 2300
[2022-12-12 03:43] VITALS: BP 129/62; PULSE 45; RESP 18; TEMP 36.3; O2SAT 97
[2022-12-12 04:26] LABS: Bedside Glucose 135 mg/dL (74-106)
--- NOTE | 2022-12-12 06:29 | PN.HOSP_ITS ---
Reason for Visit Reason for Visit: Diagnoses Other injury of unspecified body region, initial encounter (12/11/22) Subjective Subjective Patient overnight with no acute events per self and per nursing report. Patient status post MRI of the lower extremity today with noted focal plantar cellulitis between the distal aspect of the first and second metatarsal with 2 small enhancing fluid collection compatible with abscess with focal cellulitis of the dorsal aspect of the foot. Patient with bedside debridement per podiatry and per infectious disease transition to oral antibiotic therapy based on previous culture. Given well-appearing base following debridement podiatry and infectious disease both did clear for discharge to home with close follow-up. Patient denies any significant pain to the left foot. Patient denies fevers, chills, nausea, emesis, abdominal pain, chest pain or dyspnea. Objective Data Objective Data Vital Signs: Vital Signs Temp Pulse Resp BP Pulse Ox O2 Del Method 97.3 F L 45 L 18 129/62 H 97 Room Air 12/12/22 03:43 12/12/22 03:43 12/12/22 03:43 12/12/22 03:43 12/12/22 03:43 12/12/22 03:48 Oxygen Delivery Method Room Air Weight: 244 lb 4 oz Body Mass Index (BMI) 28.8 Intake & Output: Intake and Output for Last 24 Hours 12/10/22 12/11/22 12/12/22 23:59 23:59 23:59 Intake Total 111.0 / 111.0 540 / 540 Balance 111.0 / 111.0 540 / 540 Lab / Micro Data 12/12/22 06:48 12/12/22 06:48 Labs: Laboratory Results - last 24 hr 12/11/22 20:16: WBC 5.6, RBC 4.72, Hgb 14.3, Hct 40.3, MCV 85.4, MCH 30.3, MCHC 35.5, RDW Std Deviation 35.8, RDW Coeff of Julianna 11.6, Plt Count 202, MPV 10.2, Immature Gran % (Auto) 0.200, Neut % (Auto) 51.1, Lymph % (Auto) 38.1, [place] % (Auto) 7.2, Eos % (Auto) 2.9, Baso % (Auto) 0.5, Absolute Neuts (auto) 2.8, Abso lute Lymphs (auto) 2.12, Nucleated RBC % 0, ESR 28 H, Sodium 135 L, Potassium 4.0, Chloride 100, Carbon Dioxide 30.0, Anion Gap 5, BUN 21 H, Creatinine 1.16, Estim Creat Clear Calc 98.15, Est GFR (MDRD) Af Amer 86, Est GFR (MDRD) Non-Af 71, BUN/Creatinine Ratio 18.1, Glucose 163 H, Hemoglobin A1c 7.8 H, Calcium 9.7, C-React Prot Ext Range 10.60 H 12/11/22 21:56: POC Glucose 275 H 12/12/22 04:08: POC Glucose 135 H Physical Exam Narrative Physical Examination: General: Awake, alert, oriented x 3 and cooperative, seated upright in MS bed, no acute distress. Skin: Normal color, normal turgor, no icterus, no cyanosis except status post recent excisional debridement of the left lower extremity with dressing per podiatry in place currently, no drainage. HEENT: AT/NC, EOMI, PERRLA, MMM. Lungs: CTA bilaterally, moderate effort, mild decrease BL bases, no rales, ronchi or wheezing. Heart: Regular rate and rhythm; no gallop, rub audible. Abdomen: Soft, overweight, NTTP, ND, mildly hyperactive BS. Extremities: No cyanosis, no clubbing, see skin. Neurological: Patient awake, alert, oriented x 3, cognitive function intact; pupils equally reactive to light and accommodation, cranial nerves II-XII grossly normal, moving all 4 extremities, status post left lower extremity excisional foot debridement per podiatry, dressing in place, strength mildly to moderately global decreased, nonweightbearing status to the left lower extremity complicates presentation. Psychiatric: Affect appears normal, no acute evidence of depressive or anxiety feelings. Assessment & Plan Assessment/Plan (1) Infected wound: PLAN: Plan The patient is a 47 y/o M w/ PMHx: s/p Vu-en-Y bypass status, HTN, HLD, Allergic rhinitis, Former tobacco use, Diabetes mellitus type II who presents to the [facility] as direct admission 12/11/22 secondary to history of a poorly hearing diabetic foot wound following with Dr. Hooper podiatry at the wound care center prompting eventual hospital evaluation. #1. Acute AcB, enterococcus, klebs, anaerobes diabetic left foot wound, ruled out osteomyelitis: Work-up in the ED with afebrile status, CBC with WC 5.6, he 114.3, platelet 202 without marked left shift however ESR 28, CRP 10.60, hemoglobin A1c 7.8%, plain film of the left foot with noted relatively stable fo ot with no acute abnormality or bony erosion to suggest osteomyelitis however still nonhealing wound with concern. Patient admitted to medical surgical floor, MRI of the lower extremity today with noted focal plantar cellulitis between the distal aspect of the first and second metatarsal with 2 small enhancing fluid collection compatible with abscess with focal cellulitis of the dorsal aspect of the foot, s/p 12/12/22 bedside debridement per podiatry recommendation for 3 times per week dressing changes with wound cleansing/silver alginate/DSD with Anderson bandage, nonweightbearing with continue follow-up outpatient in 1 week, initially BSA however following infectious disease evaluation review of previous cultures w/ AcB, enterococcus, klebs, anaerobes following his discussion with microbiology patient cleared for discharge to home on oral Levaquin and Flagyl for 10 additional days. PRN pain regimen, PRN antiemetic regimen. Given clinical improvement and well-appearing wound base following bedside debridement with no obvious evidence of osteomyelitis transition to oral antibiotic regimen patient appropriate for discharge home with early PCP, podiatry and if patient/family desire follow-up with infectious disease also. #2. Hypertension: Continue home regimen including amlodipine, lisinopril, hydrochlorothiazide, metoprolol PRN hydralazine. #3. Hyperlipidemia: Per current list on a regimen, defer to outpatient. #4. Diabetes mellitus type II: Hold oral home regimen, hemoglobin A1c 7.8%, ADA diet, accu checks w/ ISS. Discussed with patient and with spouse and at discharge we will plan to increase metformin to 1000 mg p.o. twice daily with close early PCP follow-up and continued ongoing of blood sugars as well as future A1c checks to assess progress. Encourage continued lifestyle and diet changes. #5. Former tobacco use: Encourage continued tobacco cessation. #6. Status post gastric bypass status: Patient status post gastric bypass, BMI currently 29, encourage continued lifestyle and diet changes, will continue multivitamin including B12/folic acid. #7. BPH: We will continue patient on Flomax regimen. #8. DVT prophylaxis: SCDs. Charges/Coding Visit Charges Inpatient E&M: 95051 Subs Hosp L2
[2022-12-12 07:46] LABS: Absolute Lymphocyte Count 1.72 X10^3/uL (0.83-4.51); Basophil# 0.03 X10^3/uL; Basophil% 0.7 % (0-1); Eosinophil# 0.18 X10^3/uL; Eosinophils% 4.1 % (0-5); Hemoglobin 13.7 g/dL (13.0-16.5); Lymphocyte # 1.72 X10^3/ul (0.83-4.51); Lymphocyte % 39.4 % (19-41); Mean Corp Hgb Conc 36.1 g/dL (32-36); Mean Corpuscular Hgb 30.9 pg (27.0-32.0); Mean Corpuscular Volume 85.6 fL (80-94); Mean Platelet Vol. 10.5 fl (6.2-12.0); Monocyte# 0.47 X10^3/uL; Monocyte% 10.8 % (0-10); NRBC Flagged by Analyzer 0 % (0-5); Neutrophil # 1.97 X10^3/uL (2.7-7.7); Platelet Count 197 K/mm3 (150-450); RBC Distribution Width CV 11.7 % (11.6-14.6); RBC Distribution Width SD 35.9 fl (35.1-43.9); Red Blood Count 4.44 M/mm3 (4.6-6.2); White Blood Count 4.4 K/mm3 (4.4-11.0)
[2022-12-12 08:06] LABS: ALB/GLOB Ratio 0.9 RATIO (0.9-2.4); AST(SGOT) 34 U/L (15-37); Alanine Aminotransfer ALT/SGPT 64 U/L (16-61); Albumin, Serum 3.5 g/dL (3.2-5.0); Alkaline Phosphatase 71 U/L (45-117); Anion Gap 6 (5-15); BUN 19 mg/dL (7-18); Calcium,Total 9.4 mg/dL (8.5-10.1); Chloride 102 mmol/L (98-107); Creatinine, Serum 1.19 mg/dL (0.70-1.30); EST Glomerular Filtration Rate 69 mL/min (>60); Est Glom Filt Rate - Afr Amer 84 mL/min (>60); Estimated Creatinine Clearance 95.67 ml/min; Globulin 3.9 g/dL (2.2-4.2); Glucose 162 mg/dL (74-106); Potassium 4.3 mmol/L (3.5-5.1); Protein, Total 7.4 g/dL (6.4-8.2); Sodium Level 139 mmol/L (136-145)
[2022-12-12 08:39] VITALS: BP 150/81; PULSE 49; RESP 18; TEMP 36.3; O2SAT 97
--- NOTE | 2022-12-12 09:00 | MRI_ITS ---
STUDY: MRI LEFT MIDFOOT REASON FOR EXAM: Male, 47 years old. Plantar surface ulceration. Evaluate for osteomyelitis. TECHNIQUE: Standardized fat and water weighted pulse sequences were obtained in all 3 orthogonal planes before and after the administration of 22 mL of Clariscan intravenously. COMPARISON: Left foot x-rays dated December 09, 2022. FINDINGS: Focal soft tissue swelling on the plantar surface of the foot beneath the distal aspects of the first and second metatarsals. 2 small enhancing rim around small fluid collections which measure 12 mm and 1 cm best seen on the axial postcontrast series 11 images 23-30). This finding is compatible with focal cellulitis and small soft tissue abscesses. Focal soft tissue swelling on the volar surface adjacent to the heads of the second through fifth metatarsals (sagittal series 4 images 6-20). Periosteal reaction in the proximal portions of the third, fourth and fifth toes. MRI/Lower Ext No Joint W/WO Cont IMPRESSION: Focal plantar cellulitis between the distal aspects of the first and second metatarsal with 2 small enhancing fluid collections, compatible with abscesses as described, Focal cellulitis on the dorsal aspect of the foot. Electronically Signed: Sid Boyle MD at 10:50 EDT ,
[2022-12-12 10:00] VITALS: PULSE 59
[2022-12-12] MEDS: 0.9% Saline Lock 10 ML Syringe IV (10:25)
[2022-12-12 11:52] LABS: Bedside Glucose 171 mg/dL (74-106)
[2022-12-12 12:00] LABS: Bedside Glucose 169 mg/dL (74-106)
--- NOTE | 2022-12-12 13:00 | PCM.CONS.GEN ---
Assessment & Plan Assessment/Plan (1) Non-pressure chronic ulcer of other part of left foot with fat layer exposed: PLAN: Exam performed radiographs/mri reviewed - no concern for underlying osteomyelitis VSS, no leukocytosis per C+S from 12/08 - positive for acinobacter boumanii, kleibsiella pneumoniae, enterococcus faecalis - sensitive to doxy/cipro discussed transition to complete non-weightbearing on left using knee scooter recommend 3/week dressing changes consisiting of wound cleansing/silver alginate, DSD, jean-paul bandage Wound today excisionally debrided down to and including level of subcutaneous tissue using a #15 blade without incident. Pre/post debridement measurements documented in objective. No anesthesia due to neuropathy. hemostasis with compression. Patient tolerated procedure well. flushed wound/cultured dressed with silver alginate/DSD recommend D/C on PO abx and non-weightbearing with aforementioned dressing changes. will follow weekly in outpatient setting (2) Cellulitis of left foot: (3) Diabetic neuropathy associated with diabetes mellitus due to underlying condition: QUALIFIERS: Diabetes mellitus complication detail: diabetic polyneuropathy (4) Diabetic neuropathy: QUALIFIERS: Diabetes mellitus type: type 2 Diabetes mellitus complication detail: diabetic polyneuropathy Qualified Code(s): E11.42 - Type 2 diabetes mellitus with diabetic polyneuropathy HPI Consult Data Date of Consult: 12/12/22 HPI Narrative HPI Narrative: ALEXIS LACKEY, is a 47 M who presents with a 2 months old left diabetic foot wound. Patient referred for admission due to concern for non-healing left foot wound. Patient notes some mild tenderness to site, denies constituionals, offloading with cam boot at home, dressing changes per (RN) at home. followed by wound care center. Denies constitutional symptoms at current, no other issues. [facility] Medical History Bone fracture Diabetes type 2, controlled Elevated liver enzymes Fatty liver frozen shoulder,r arm High cholesterol HTN (hypertension) Neuropathy Seasonal allergies Home Medications blood sugar diagnostic (OneTouch Verio test strips) #10 ea 02/11/19 [History Last Taken Unknown] blood-glucose meter (SuliaTouch Verio Meter) #1 ea 02/11/19 [History Last Taken Unknown] cholecalciferol (vitamin D3) 1,250 mcg (50,000 unit) capsule 50,000 unit PO QWEEK #12 caps 03/08/19 [Rx Last Taken Unknown] metoprolol succinate 50 mg tablet,extended release 24 hr 100 mg PO DAILY 03/08/19 [History Last Taken Unknown] metformin 500 mg tablet 500 mg PO BID #180 tabs 05/26/19 [Rx Last Taken Unknown] amlodipine 5 mg tablet 5 mg PO DAILY 02/07/22 [History Last Taken Unknown] lisinopril 20 mg-hydrochlorothiazide 12.5 mg tablet 1 tab PO DAILY 02/07/22 [History Last Taken Unknown] tamsulosin 0.4 mg capsule 0.4 mg PO DAILY 02/07/22 [History Last Taken Unknown] ascorbate calcium (vitamin C) 814 mg/gram oral powder (Vitamin C (ascorbate calcium)) mg PO 12/10/22 [History Last Taken Unknown] biotin 100 mcg PO DAILY 12/10/22 [History Last Taken Unknown] calcium citrate 500 mg PO DAILY 12/10/22 [History Last Taken Unknown] jvxhyvom-nerq-cbw-folic acid 18 mg-0.4 mg tablet (One Daily Complete) 1 tab PO DAILY 12/10/22 [History Last Taken Unknown] multivitamin-iron (hematinic) tab 12/10/22 [History Last Taken Unknown] vit B12 50 mcg-iodine 75 mcg-mag 100 og-cvhr-vdiocmtr-herb 193 capsule 1 cap PO DAILY 12/10/22 [History Last Taken Unknown] zinc 50 mg tablet 50 mg PO DAILY 12/10/22 [History Last Taken Unknown] levofloxacin 500 mg tablet 500 mg PO DAILY #14 tabs 12/11/22 [Rx Last Taken Unknown] mupirocin 2 % topical ointment 1 applic topical DAILY 12/11/22 [History Last Taken Unknown] metronidazole 250 mg tablet 250 mg PO TID 10 days #30 tabs 12/12/22 [Rx Last Taken Unknown] Allergy/AdvReac Type Severity Reaction Status Date / Time amoxicillin [From Augmentin] Allergy Severe Rash Verified 12/10/22 11:43 clavulanic acid Allergy Severe Rash Verified 12/10/22 11:43 [From Augmentin] Penicillins Allergy Unknown Hives Verified 02/07/22 08:51 Family History Mother Asthma Hypertension Father Hypertension Grandmother Cancer Unknown Arthritis Diabetes Other Diverticulitis Family history of high cholesterol Glaucoma Heart disease Kidney disease Renal failure Surgical History H/O bariatric surgery History of liver biopsy Social History Smoking Status: Former smoker alcohol intake: never substance use type: does not use ROS Constitutional Constitutional: Denies excessive sweating or weakness Eyes Eyes: Denies burning, change in eye color or excessive blinking ENT HEENT: Denies dry mouth, dysphagia or mouth lesions Cardiovascular Cardiovascular: Reports leg ulcers; Denies bluish discoloration of hand/feet or dyspnea at rest Respiratory/Chest Respiratory/Chest: Denies difficulty clearing secretions, dry cough or non-rest sleep EDS Gastrointestinal Gastrointestinal: Denies chewing difficulty, coffee ground emesis or hematochezia Physical Exam Narrative Vascular: DP/PT pulses palpable 2/4 bilaterally. CFT brisk to all digits. Digital hairgrowth noted. Neurologic: light touch/protective sensation diminished bilaterally. Dermatologic: plantar left 5th metatarsal base wound with difussed periwound callusing. Pre-debridement wound was 0.5x0.5x0.3cm. Post debridement wound was noted to extend laterally and dorsally through a superficial tunnel, measuring 1.5x2.0x0.3cm with clean granular base, scant drainage, clean skin edges, no deep probing, undermining or fluctuance/crepitus. Musculoskeletal: metatarsasus adductus deformity on left contributing to wound formation in setting of neuropathy. Const alert and oriented x3 Lab / Micro Data 12/12/22 06:48 12/12/22 06:48 Labs: Laboratory Results - last 24 hr 12/11/22 20:16: WBC 5.6, RBC 4.72, Hgb 14.3, Hct 40.3, MCV 85.4, MCH 30.3, MCHC 35.5, RDW Std Deviation 35.8, RDW Coeff of Julianna 11.6, Plt Count 202, MPV 10.2, Immature Gran % (Auto) 0.200, Neut % (Auto) 51.1, Lymph % (Auto) 38.1, [place] % (Auto) 7.2, Eos % (Auto) 2.9, Baso % (Auto) 0.5, Absolute Neuts (auto) 2.8, Absolute Lymphs (auto) 2.12, Nucleated RBC % 0, ESR 28 H, Sodium 135 L, Potassium 4.0, Chloride 100, Carbon Dioxide 30.0, Anion Gap 5, BUN 21 H, Creatinine 1.16, Estim Creat Clear Calc 98.15, Est GFR (MDRD) Af Amer 86, Est GFR (MDRD) Non-Af 71, BUN/Creatinine Ratio 18.1, Glucose 163 H, Hemoglobin A1c 7.8 H, Calcium 9.7, C-React Prot Ext Range 10.60 H 12/11/22 21:56: POC Glucose 275 H 12/12/22 04:08: POC Glucose 135 H 12/12/22 06:42: POC Glucose 171 H 12/12/22 06:48: WBC 4.4, RBC 4.44 L, Hgb 13.7, Hct 38.0 L, MCV 85.6, MCH 30.9, MCHC 36.1 H, RDW Std Deviation 35.9, RDW Coeff of Julianna 11.7, Plt Count 197, MPV 10.5, Immature Gran % (Auto) 0.000, Neut % (Auto) 45.0 L, Lymph % (Auto) 39.4, [place] % (Auto) 10.8 H, Eos % (Auto) 4.1, Baso % (Auto) 0.7, Absolute Neuts (auto) 2.0, Absolute Lymphs (auto) 1.72, Nucleated RBC % 0, Sodium 139, Potassium 4.3, Chloride 102, Carbon Dioxide 31.0, Anion Gap 6, BUN 19 H, Creatinine 1.19, Estim Creat Clear Calc 95.67, Est GFR (MDRD) Af Amer 84, Est GFR (MDRD) Non-Af 69, BUN/Creatinine Ratio 16.0, Glucose 162 H, Calcium 9.4, Total Bilirubin 0.80, AST 34, ALT 64 H, Alkaline Phosphatase 71, Total Protein 7.4, Albumin 3.5, Globulin 3.9, Albumin/Globulin Ratio 0.9 12/12/22 11:35: POC Glucose 169 H Radiology Impression Lower Extremity MRI 12/12/22 09:00 IMPRESSION: Focal plantar cellulitis between the distal aspects of the first and second metatarsal with 2 small enhancing fluid collections, compatible with abscesses as described, Focal cellulitis on the dorsal aspect of the foot. Electronically Signed: Sid Boyle MD at 10:50 EDT ,
--- NOTE | 2022-12-12 13:15 | CASEMGMT ---
MEGHA SHAFER DC Planning: This RN SONI met with pt at bedside to discuss discharge needs. Pt states he is independent at baseline and states his will be able to assist him if needed. Pt denies any discharge needs or concerns at this time. Litzy Traylor RN CM
--- NOTE | 2022-12-12 13:28 | WOUNDNOTE ---
wound photo: left foot
--- NOTE | 2022-12-12 13:28 | WOUNDNOTE ---
wound photo: left foot
--- NOTE | 2022-12-12 13:54 | DCINST_ITS ---
Discharge Instructions Diet Discharge Diet: Low fat / Low cholesterol and 1800 Calorie Control Diet Activity Discharge Activity: - (Use crutches or scooter as must remain NWB to the left foot. ) Return to work on:: 12/26/22 (May work during this time from home but must remain non-weight bearing with elevation to the LLE ideally also elevating the LLE above heart.) May resume sexual activity in: No Restrictions Weight Bearing Status: No weight bearing (NWB to the LLE as noted.) Keep extremity elevated above heart level: Operative Extremity and Left Leg Dressing / Incision Call your doctor if your incision/area has: Continuous Slow Oozing, Sudden Increased Bleeding, Increased Pain/ Swelling, Increased Redness, Foul Smelling Discharge and Swelling at the incision site Call your doctor if you observe: Fever of 101 or Higher, Swelling in the ankles and Uncontrolled pain Follow Up Care Test Results: Test results from this visit will be discussed in further detail at your follow- up appointment, if applicable. Discharge Plan Admission Admit Date/Time: 12/11/22 18:35 Primary Reason for Your Visit: Diabetic foot wound/ulcer, cellulitis/abscess Attending Provider: Brynn Sherman Primary Care Provider: SCOTT FREED Consulting Providers: Abdiel Orozco; Terry Escobedo; Zbigniew Hooper Instructions Additional Instructions / Restrictions: DISCHARGE INSTRUCTIONS/RECOMMENDATIONS: (1) Recommend 3x/week dressing changes consisting of wound cleansing/silver alginate, DSD, jean-paul bandage. (2) Non-weightbearing assisted by crutches or scooter. (3) Follow up in 1 week with Podiatry. (4) May also opt to follow-up with Dr. Escobedo Infectious disease also as noted. (5) Given your HgbA1c and presentation your metformin was increased to 1,000 mg twice daily. Please have repeat HgbA1c with your primary care at follow-up in the next couple months to assess your progress in addition to continued lifestyle/diet intervention changes. Discharge Orders/Prescriptions Prescriptions: New metronidazole 500 mg Tablet 500 mg PO TID 10 Days Qty: 30 0RF Rx Instructions: no alcohol while on this medication levofloxacin 500 mg Tablet 500 mg PO DAILY@0600 10 Days Qty: 10 0RF metformin 1,000 mg tablet 1,000 mg PO BID 30 Days Qty: 60 0RF Continued metoprolol succinate 50 mg tablet extended release 24 hr 100 mg PO DAILY cholecalciferol (vitamin D3) 50,000 unit capsule 50,000 unit PO QWEEK Qty: 12 3RF Patient Comments: every thursday (DME) OneTouch Verio test strips Strip See Rx Instructions .ROUTE .MEDSUPPLY Qty: 10 Rx Instructions: use to check BG 4 x qd (DME) blood-glucose meter [OneTouch Verio Meter] Misc See Rx Instructions .ROUTE .MEDSUPPLY Qty: 1 Rx Instructions: As directed amlodipine 5 mg tablet 5 mg PO DAILY Patient Comments: TAKE 1 TABLET BY MOUTHcONCE DAILY lisinopril-hydrochlorothiazide 20-12.5 mg tablet 1 tab PO DAILY Patient Comments: TAKE TWO TABLETS BY MOUTHiONCE DAILY tamsulosin 0.4 mg capsule 0.4 mg PO DAILY Patient Comments: TAKE 1 CAPSULE BY MOUTHUONCE DAILY [id number] 50 mcg-75 mcg -100 mg capsule 1 cap PO DAILY biotin 100 mcg PO DAILY calcium citrate 250 mg calcium tablet 500 mg PO DAILY One Daily Complete 18-0.4 mg tablet 1 tab PO DAILY zinc 50 mg tablet 50 mg PO DAILY Vitamin C (ascorbate calcium) 814 mg/gram powder PO mupirocin 2 % ointment 1 applic topical DAILY Patient Comments: with dressing change Discontinued metformin 500 mg tablet 500 mg PO BID Qty: 180 1RF multivitamin-iron (hematinic) Tablet levofloxacin 500 mg tablet 500 mg PO DAILY Qty: 14 0RF metronidazole 250 mg tablet 250 mg PO TID 10 Days Qty: 30 0RF Referrals / Follow Up: SCOTT FREED DO [Primary Care Provider] - (Please follow-up within 3-5 days to review admission, medication changes with increase of metformin.) Isaac Lucero DPM [Med Staff - Active Staff] - (Call office to arrange follow-up for 1 week following discharge. If any concerns please contact Podiatry office earlier.) Terry Escobedo MD [Med Staff - Active Staff] - (May follow-up with Infectious disease per your discretion. If desired would recommend follow-up in 2 weeks if any further issues with your wound.) Disposition Disposition (needs filled in before D/C Order can be placed): Home, Self Care
[2022-12-12 13:58] VITALS: BP 154/77; PULSE 52; RESP 18; TEMP 36.4; O2SAT 100
[2022-12-12] MEDS: levoFLOXacin 500 MG Tablet PO (14:10)
[2022-12-12] MEDS: amLODIPine 5 MG Tablet PO (14:10)
[2022-12-12] MEDS: Tamsulosin HCl 0.4 MG Capsule PO (14:10)
[2022-12-12 14:11] VITALS: PULSE 52
[2022-12-12] MEDS: Lisinopril 20 MG Tablet PO (14:11)
[2022-12-12] MEDS: hydroCHLOROthiazide 12.5mg 12.5 MG PO (14:11)
--- NOTE | 2022-12-12 14:33 | PCM.CONS.GEN ---
Assessment & Plan Assessment/Plan (1) Diabetic neuropathy: QUALIFIERS: Diabetes mellitus type: type 2 Diabetes mellitus complication detail: diabetic polyneuropathy Qualified Code(s): E11.42 - Type 2 diabetes mellitus with diabetic polyneuropathy (2) Foot abscess, left: PLAN: Wound cx with AcB, enterococcus, klebs, anaerobes. Spoke with micro lab, released additional susceptibilities. MRI showed no osteo. I&D done here. Ok for home with po levaquin/flagyl for 10 days which will cover all these organisms. He is to monitor for worsening foot symptoms, diarrhea, fever; he is also to avoid etoh while on flagyl. Will follow as needed, thank you, d.w Dr. Sherman. HPI Consult Data Date of Consult: 12/12/22 HPI Narrative Reason for Consultation: foot abscesses HPI Narrative: ALEXIS LACKEY, is a 47 M with DM neuropathy, gastric bypass, presented as direct admit 12/11 with 3-4 days progressive L foot swelling, drainage, redness, and associated fever and chills. Follows at wound center for chronic L foot ulcer. Saw wound center, saw podiatry, started on a few different po abx, admitted here. MRI and I&D done, feeling much better, no further fever. Full ROS performed and neg except as noted above. [facility] Medical History Bone fracture Diabetes type 2, controlled Elevated liver enzymes Fatty liver frozen shoulder,r arm High cholesterol HTN (hypertension) Neuropathy Seasonal allergies Home Medications blood sugar diagnostic (OneTouch Verio test strips) #10 ea 02/11/19 [History Last Taken Unknown] blood-glucose meter (OneTouch Verio Meter) #1 ea 02/11/19 [History Last Taken Unknown] cholecalciferol (vitamin D3) 1,250 mcg (50,000 unit) capsule 50,000 unit PO QWEEK #12 caps 03/08/19 [Rx Last Taken Unknown] metoprolol succinate 50 mg tablet,extended release 24 hr 100 mg PO DAILY 03/08/19 [History Last Taken Unknown] amlodipine 5 mg tablet 5 mg PO DAILY 02/07/22 [History Last Taken Unknown] lisinopril 20 mg-hydrochlorothiazide 12.5 mg tablet 1 tab PO DAILY 02/07/22 [History Last Taken Unknown] tamsulosin 0.4 mg capsule 0.4 mg PO DAILY 02/07/22 [History Last Taken Unknown] ascorbate calcium (vitamin C) 814 mg/gram oral powder (Vitamin C (ascorbate calcium)) mg PO 12/10/22 [History Last Taken Unknown] biotin 100 mcg PO DAILY 12/10/22 [History Last Taken Unknown] calcium citrate 500 mg PO DAILY 12/10/22 [History Last Taken Unknown] zpfbpnpb-mpua-zyq-folic acid 18 mg-0.4 mg tablet (One Daily Complete) 1 tab PO DAILY 12/10/22 [History Last Taken Unknown] vit B12 50 mcg-iodine 75 mcg-mag 100 dm-pgnp-bhcdsika-herb 193 capsule 1 cap PO DAILY 12/10/22 [History Last Taken Unknown] zinc 50 mg tablet 50 mg PO DAILY 12/10/22 [History Last Taken Unknown] mupirocin 2 % topical ointment 1 applic topical DAILY 12/11/22 [History Last Taken Unknown] levofloxacin 500 mg tablet 500 mg PO DAILY@0600 10 days #10 tabs 12/12/22 [Rx Last Taken Unknown] metformin 1,000 mg tablet 1,000 mg PO BID 30 days #60 tabs 12/12/22 [Rx Last Taken Unknown] metronidazole 500 mg tablet 500 mg PO TID 10 days #30 tabs 12/12/22 [Rx Last Taken Unknown] Allergy/AdvReac Type Severity Reaction Status Date / Time amoxicillin [From Augmentin] Allergy Severe Rash Verified 12/10/22 11:43 clavulanic acid Allergy Severe Rash Verified 12/10/22 11:43 [From Augmentin] Penicillins Allergy Unknown Hives Verified 02/07/22 08:51 Family History Mother Asthma Hypertension Father Hypertension Grandmother Cancer Unknown Arthritis Diabetes Other Diverticulitis Family history of high cholesterol Glaucoma Heart disease Kidney disease Renal failure Surgical History H/O bariatric surgery History of liver biopsy Social History Smoking Status: Former smoker alcohol intake: never substance use type: does not use Physical Exam Const alert, oriented x3 and no apparent distress General Appearance: cooperative HEENT normocephalic and head/scalp atraumatic Eyes PERRL and EOMs intact bilaterally Neck supple and No nodes Resp normal air movement and clear to auscultation bilaterally Cardio regular rate and regular rhythm GI soft to palpation, non-tender and non-distended Extremity General Extremity: edema Skin Skin Narrative: reviewed photos L foot Neuro CN's II-XII intact bilaterally Lab / Micro Data Attestation: I reviewed the patient's lab results. 12/12/22 06:48 12/12/22 06:48 Labs: Laboratory Results - last 24 hr 12/11/22 20:16: WBC 5.6, RBC 4.72, Hgb 14.3, Hct 40.3, MCV 85.4, MCH 30.3, MCHC 35.5, RDW Std Deviation 35.8, RDW Coeff of [place] 11.6, Plt Count 202, MPV 10.2, Immature Gran % (Auto) 0.200, Neut % (Auto) 51.1, Lymph % (Auto) 38.1, [place] % (Auto) 7.2, Eos % (Auto) 2.9, Baso % (Auto) 0.5, Absolute Neuts (auto) 2.8, Absolute Lymphs (auto) 2.12, Nucleated RBC % 0, ESR 28 H, Sodium 135 L, Potassium 4.0, Chloride 100, Carbon Dioxide 30.0, Anion Gap 5, BUN 21 H, Creatinine 1.16, Estim Creat Clear Calc 98.15, Est GFR (MDRD) Af Amer 86, Est GFR (MDRD) Non-Af 71, BUN/Creatinine Ratio 18.1, Glucose 163 H, Hemoglobin A1c 7.8 H, Calcium 9.7, C-React Prot Ext Range 10.60 H 12/11/22 21:56: POC Glucose 275 H 12/12/22 04:08: POC Glucose 135 H 12/12/22 06:42: POC Glucose 171 H 12/12/22 06:48: WBC 4.4, RBC 4.44 L, Hgb 13.7, Hct 38.0 L, MCV 85.6, MCH 30.9, MCHC 36.1 H, RDW Std Deviation 35.9, RDW Coeff of [place] 11.7, Plt Count 197, MPV 10.5, Immature Gran % (Auto) 0.000, Neut % (Auto) 45.0 L, Lymph % (Auto) 39.4, [place] % (Auto) 10.8 H, Eos % (Auto) 4.1, Baso % (Auto) 0.7, Absolute Neuts (auto) 2.0, Absolute Lymphs (auto) 1.72, Nucleated RBC % 0, Sodium 139, Potassium 4.3, Chloride 102, Carbon Dioxide 31.0, Anion Gap 6, BUN 19 H, Creatinine 1.19, Estim Creat Clear Calc 95.67, Est GFR (MDRD) Af Amer 84, Est GFR (MDRD) Non-Af 69, BUN/Creatinine Ratio 16.0, Glucose 162 H, Calcium 9.4, Total Bilirubin 0.80, AST 34, ALT 64 H, Alkaline Phosphatase 71, Total Protein 7.4, Albumin 3.5, Globulin 3.9, Albumin/Globulin Ratio 0.9 12/12/22 11:35: POC Glucose 169 H Radiology Impression Lower Extremity MRI 12/12/22 09:00 IMPRESSION: Focal plantar cellulitis between the distal aspects of the first and second metatarsal with 2 small enhancing fluid collections, compatible with abscesses as described, Focal cellulitis on the dorsal aspect of the foot. Electronically Signed: Sid Boyle MD at 10:50 EDT ,
[2022-12-12] MEDS: metroNIDAZOLE 500 MG Tablet PO (15:07)
--- NOTE | 2022-12-12 15:10 | DS.PCM_ITS ---
Providers Date of Admission: 12/11/22 Date of Discharge: 12/12/22 Primary Care Physician: SCOTT FREED DO Consultations 12/11/22 18:33 Consult: Infectious Disease Routine Consulting Provider: Terry Escobedo Reason for Consult: Diabetic wound foot infection EMERGENT Consult: No Notified: Yes Date Notified: 12/12/22 Time Notified: 08:13 Method of Notification: Text Consult: Podiatry Routine Consulting Provider: Zbigniew Hooper Reason for Consult: Diabetic foot wound infection EMERGENT Consult: No Notified: Yes Date Notified: 12/12/22 Time Notified: 08:09 Method of Notification: Text 12/12/22 08:23 Consult: Onc/Wound/machine filler Routine Comment: Reason for Consult:: left foot Reason For Visit: DIABETIC FOOT WOUND/OSTEOMYELITIS Diagnosis Discharge Diagnosis (1) Infected wound: Status: Acute Code(s): T14.8XXA - Other injury of unspecified body region, initial encounter; L08.9 - Local infection of the skin and subcutaneous tissue, unspecified Plan: Discharge Diagnoses: #1. Acute AcB, enterococcus, klebs, anaerobes diabetic left foot wound, ruled out osteomyelitis #2. Hypertension #3. Hyperlipidemia #4. Diabetes mellitus type II #5. Former tobacco use #6. Status post gastric bypass status #7. BPH Medications at Discharge Home Medications blood sugar diagnostic (OneTouch Verio test strips) #10 ea 02/11/19 blood-glucose meter (OneTouch Verio Meter) #1 ea 02/11/19 cholecalciferol (vitamin D3) 1,250 mcg (50,000 unit) capsule 50,000 unit PO QWEEK #12 caps 03/08/19 metoprolol succinate 50 mg tablet,extended release 24 hr 100 mg PO DAILY 03/08/19 amlodipine 5 mg tablet 5 mg PO DAILY 02/07/22 lisinopril 20 mg-hydrochlorothiazide 12.5 mg tablet 1 tab PO DAILY 02/07/22 tamsulosin 0.4 mg capsule 0.4 mg PO DAILY 02/07/22 ascorbate calcium (vitamin C) 814 mg/gram oral powder (Vitamin C (ascorbate calcium)) mg PO 12/10/22 biotin 100 mcg PO DAILY 12/10/22 calcium citrate 500 mg PO DAILY 12/10/22 xcdhgpsk-ziur-gpr-folic acid 18 mg-0.4 mg tablet (One Daily Complete) 1 tab PO DAILY 12/10/22 vit B12 50 mcg-iodine 75 mcg-mag 100 dc-ywtw-wajwpriu-herb 193 capsule 1 cap PO DAILY 12/10/22 zinc 50 mg tablet 50 mg PO DAILY 12/10/22 mupirocin 2 % topical ointment 1 applic topical DAILY 12/11/22 levofloxacin 500 mg tablet 500 mg PO DAILY@0600 10 days #10 tabs 12/12/22 metformin 1,000 mg tablet 1,000 mg PO BID 30 days #60 tabs 12/12/22 metronidazole 500 mg tablet 500 mg PO TID 10 days #30 tabs 12/12/22 Hospital Course Operations None Procedures - (12/12/22 Bedside I+D per Dr. Lucero.) Summary of Care Provided Minutes Spent on Discharge: 35 Hospital Course: The patient is a 47 y/o M w/ PMHx: s/p Vu-en-Y bypass status, HTN, HLD, Allergic rhinitis, Former tobacco use, Diabetes mellitus type II who presented to the [facility] as direct admission 12/11/22 secondary to history of a poorly hearing diabetic foot wound following with Dr. Hooper podiatry at the wound care center prompting eventual hospital evaluation. Work-up in the ED with afebrile status, CBC with WC 5.6, he 114.3, platelet 202 without marked left shift however ESR 28, CRP 10.60, hemoglobin A1c 7.8%, plain film of the left foot with noted relatively stable foot with no acute abnormality or bony erosion to suggest osteomyelitis however still nonhealing wound with concern. Patient admitted to medical surgical floor, MRI of the lower extremity today with noted focal plantar cellulitis between the distal aspect of the first and second metatarsal with 2 small enhancing fluid collection compatible with abscess with focal cellulitis of the dorsal aspect of the foot, s/p 12/12/22 bedside debridement per podiatry recommendation for 3 times per week dressing changes with wound cleansi ng/silver alginate/DSD with Anderson bandage, nonweightbearing with continue follow- up outpatient in 1 week, initially BSA however following infectious disease evaluation review of previous cultures w/ AcB, enterococcus, klebs, anaerobes following his discussion with microbiology patient cleared for discharge to home on oral Levaquin and Flagyl for 10 additional days. HgbA1c 7.8% thus upon discharge patient transitioned to metformin to 1000 mg p.o. twice daily with close early PCP follow-up and continued ongoing of blood sugars as well as future A1c checks to assess progress. Encourage continued lifestyle and diet changes. Given clinical improvement and well-appearing wound base following bedside debridement with no obvious evidence of osteomyelitis transition to oral antibiotic regimen patient appropriate for discharge home with early PCP, podiatry and if patient/family desire follow-up with infectious disease also. Weight / BMI Weight Weight: 244 lb 4 oz Body Mass Index (BMI) 28.8 ABG / Lab / Microbiology Data 12/12/22 06:48 12/12/22 06:48 Laboratory: Laboratory Results - last 24 hr 12/11/22 20:16: WBC 5.6, RBC 4.72, Hgb 14.3, Hct 40.3, MCV 85.4, MCH 30.3, MCHC 35.5, RDW Std Deviation 35.8, RDW Coeff of Julianna 11.6, Plt Count 202, MPV 10.2, Immature Gran % (Auto) 0.200, Neut % (Auto) 51.1, Lymph % (Auto) 38.1, [place] % (Auto) 7.2, Eos % (Auto) 2.9, Baso % (Auto) 0.5, Absolute Neuts (auto) 2.8, Absolute Lymphs (auto) 2.12, Nucleated RBC % 0, ESR 28 H, Sodium 135 L, Potassium 4.0, Chloride 100, Carbon Dioxide 30.0, Anion Gap 5, BUN 21 H, Crea tinine 1.16, Estim Creat Clear Calc 98.15, Est GFR (MDRD) Af Amer 86, Est GFR (MDRD) Non-Af 71, BUN/Creatinine Ratio 18.1, Glucose 163 H, Hemoglobin A1c 7.8 H , Calcium 9.7, C-React Prot Ext Range 10.60 H 12/11/22 21:56: POC Glucose 275 H 12/12/22 04:08: POC Glucose 135 H 12/12/22 06:42: POC Glucose 171 H 12/12/22 06:48: WBC 4.4, RBC 4.44 L, Hgb 13.7, Hct 38.0 L, MCV 85.6, MCH 30.9, MCHC 36.1 H, RDW Std Deviation 35.9, RDW Coeff of Julianna 11.7, Plt Count 197, MPV 10.5, Immature Gran % (Auto) 0.000, Neut % (Auto) 45.0 L, Lymph % (Auto) 39.4, [place] % (Auto) 10.8 H, Eos % (Auto) 4.1, Baso % (Auto) 0.7, Absolute Neuts (auto) 2.0, Absolute Lymphs (auto) 1.72, Nucleated RBC % 0, Sodium 139, Potassium 4.3, Chloride 102, Carbon Dioxide 31.0, Anion Gap 6, BUN 19 H, Creatinine 1.19, Estim Creat Clear Calc 95.67, Est GFR (MDRD) Af Amer 84, Est GFR (MDRD) Non-Af 69, BUN/Creatinine Ratio 16.0, Glucose 162 H, Calcium 9.4, Total Bilirubin 0.80, AST 34, ALT 64 H, Alkaline Phosphatase 71, Total Protein 7.4, Albumin 3.5, Globulin 3.9, Albumin/Globulin Ratio 0.9 12/12/22 11:35: POC Glucose 169 H Radiography Diagnostic Testing: Radiology Impression Lower Extremity MRI 12/12/22 09:00 IMPRESSION: Focal plantar cellulitis between the distal aspects of the first and second metatarsal with 2 small enhancing fluid collections, compatible with abscesses as described, Focal cellulitis on the dorsal aspect of the foot. Electronically Signed: Sid Boyle MD at 10:50 EDT Reading Location ID and State: [address] [place] [address] , Service support , D/C Instructions Discharge Diet: Low fat / Low cholesterol and 1800 Calorie Control Diet Return to work on: 12/26/22 (May work during this time from home but must remain non-weight bearing with elevation to the LLE ideally also elevating the LLE above heart.) May resume sexual activity in: No Restrictions Weight Bearing Status: No weight bearing (NWB to the LLE as noted.) Keep extremity elevated above heart level: Operative Extremity and Left Leg Call your doctor if your incision/area has: Continuous Slow Oozing, Sudden Increased Bleeding, Increased Pain/ Swelling, Increased Redness, Foul Smelling Discharge and Swelling at the incision site Call your doctor if you observe: Fever of 101 or Higher, Swelling in the ankles and Uncontrolled pain Meaningful Use Info Meaningful Use Diagnoses (Choose all that apply): None applicable Discharge Plan Admission Admit Date/Time: 12/11/22 18:35 Primary Reason for Your Visit: Diabetic foot wound/ulcer, cellulitis/abscess Attending Provider: Brynn Sherman Primary Care Provider: SCOTT FREED Consulting Providers: Abdiel Orozco; Terry Escobedo; Zbigniew Hooper Instructions Additional Instructions / Restrictions: DISCHARGE INSTRUCTIONS/RECOMMENDATIONS: (1) Recommend 3x/week dressing changes consisting of wound cleansing/silver alginate, DSD, anderson bandage. (2) Non-weightbearing assisted by crutches or scooter. (3) Follow up in 1 week with Podiatry. (4) May also opt to follow-up with Dr. Escobedo Infectious disease also as noted. (5) Given your HgbA1c and presentation your metformin was increased to 1,000 mg twice daily. Please have repeat HgbA1c with your primary care at follow-up in the next couple months to assess your progress in addition to continued lifestyle/diet intervention changes. Discharge Orders/Prescriptions Prescriptions: New metronidazole 500 mg Tablet 500 mg PO TID 10 Days Qty: 30 0RF Rx Instructions: no alcohol while on this medication levofloxacin 500 mg Tablet 500 mg PO DAILY@0600 10 Days Qty: 10 0RF metformin 1,000 mg tablet 1,000 mg PO BID 30 Days Qty: 60 0RF Continued metoprolol succinate 50 mg tablet extended release 24 hr 100 mg PO DAILY cholecalciferol (vitamin D3) 50,000 unit capsule 50,000 unit PO QWEEK Qty: 12 3RF Patient Comments: every thursday (DME) OneTouch Verio test strips Strip See Rx Instructions .ROUTE .MEDSUPPLY Qty: 10 Rx Instructions: use to check BG 4 x qd (DME) blood-glucose meter [OneTouch Verio Meter[place] [facility] [place]TE .MEDSUPPLY Qty: 1 Rx Instructions: As directed amlodipine 5 mg tablet 5 mg PO DAILY Patient Comments: TAKE 1 TABLET BY MOUTHcONCE DAILY lisinopril-hydrochlorothiazide 20-12.5 mg tablet 1 tab PO DAILY Patient Comments: TAKE TWO TABLETS BY MOUTHiONCE DAILY tamsulosin 0.4 mg capsule 0.4 mg PO DAILY Patient Comments: TAKE 1 CAPSULE BY MOUTHUONCE DAILY [id number] 50 mcg-75 mcg -100 mg capsule 1 cap PO DAILY biotin 100 mcg PO DAILY calcium citrate 250 mg calcium tablet 500 mg PO DAILY One Daily Complete 18-0.4 mg tablet 1 tab PO DAILY zinc 50 mg tablet 50 mg PO DAILY Vitamin C (ascorbate calcium) 814 mg/gram powder PO mupirocin 2 % ointment 1 applic topical DAILY Patient Comments: with dressing change Discontinued metformin 500 mg tablet 500 mg PO BID Qty: 180 1RF multivitamin-iron (hematinic) Tablet levofloxacin 500 mg tablet 500 mg PO DAILY Qty: 14 0RF metronidazole 250 mg tablet 250 mg PO TID 10 Days Qty: 30 0RF Referrals / Follow Up: SCOTT FREED DO [Primary Care Provider] - (Please follow-up within 3-5 days to review admission, medication changes with increase of metformin.) Isaac Lucero DPM [Med Staff - Active Staff] - (Call office to arrange follow -up for 1 week following discharge. If any concerns please contact Podiatry office earlier.) Terry Escobedo MD [Med Staff - Active Staff] - (May follow-up with Infectious disease per your discretion. If desired would recommend follow-up in 2 weeks if any further issues with your wound.) Disposition Disposition (needs filled in before D/C Order can be placed): Home, Self Care Charges/Coding Visit Charges Inpatient E&M: 35626 Disch Hosp >30min
--- NOTE | 2022-12-12 15:24 | CASEMGMT ---
MEGHA CM: Reviewed wound RN notes and dressing change need. Met with pt at bedside to discuss. Pt denies any concerns with dressing changes and states his will be able to assist him with these. Plan: Home with support of his . Litzy Traylor RN CM
== END 2022-12-12 16:45 | disposition home or self-care (01) ==
PROVIDERS: Admitting Provider Hospitalist; PCP Family Medicine; Visit Provider Family Medicine
DX: E11.621 Type 2 diabetes mellitus with foot ulcer (principal); L97.522 Non-pressure chronic ulcer of other part of left foot with fat layer exposed; E11.40 Type 2 diabetes mellitus with diabetic neuropathy, unspecified; Z87.891 Personal history of nicotine dependence; L02.612 Cutaneous abscess of left foot; E78.00 Pure hypercholesterolemia, unspecified; L08.9 Local infection of the skin and subcutaneous tissue, unspecified; I10 Essential (primary) hypertension; N40.0 Benign prostatic hyperplasia without lower urinary tract symptoms; Z79.84 Long term (current) use of oral hypoglycemic drugs; Z98.84 Bariatric surgery status; Z95.1 Presence of aortocoronary bypass graft; Z79.899 Other long term (current) drug therapy; B95.2 Enterococcus as the cause of diseases classified elsewhere
CPT/HCPCS: 36415; 73720; 80048; 80053; 82962; 83036; 85025; 85652; 86140; 87070; 87077; 87186; 87205; 96365; 96366; 96367; 97802; 99221; A9575; J7040; J7050; A4216; G0378; G0379

== ENCOUNTER 2022-12-17 08:30 | Outpatient (RCR) | payer OTHER, SELFPAY ==
--- NOTE | 2022-12-09 11:00 | RAD_ITS ---
STUDY: X-RAY - LEFT FOOT CLINICAL: Male, 47 years old. Infection. Follow-up. TECHNIQUE: 3 view(s) of the foot. COMPARISON: Left foot x-rays dated November 22, 2018. FINDINGS: Osteopenia. Superior and inferior calcaneal spurs. Arthrosis of the tibiotalar joint, subtalar joint, midfoot and tarsometatarsal joints, unchanged from prior study. Moderate arthrosis of the MTP and IP joints with hammertoe deformities, unchanged. Deformity of the proximal fifth metatarsal with post traumatic changes and periosteal reaction. Healing present since the prior study. Normal soft tissues. RAD/Foot min 3 Views IMPRESSION: Relatively stable foot with no acute abnormality or bony erosion to suggest osteomyelitis. Electronically Signed: Sid Boyle MD at 9:43 EDT ,
[2022-12-10 11:22] VITALS: BP 130/68; PULSE 54; RESP 16; TEMP 36.3; BMI 28.7
--- NOTE | 2022-12-10 12:58 | PN.PCM_ITS ---
History of Present Illness Date of Service: 12/10/22 Chief Complaint: Follow-up DFU L lateral foot History of Wound: D7-year-old white male who has had history of this openings for greater than 6 months. He has been seeing Dr. Hooper for the last 6 months following up and has tried several initiatives but is never healed. He finally referred here to the wound center Patient has been using Promogran packed into wound base and moisten covered with absorbent dressing daily. Recently labs were drawn for a fever he has had of 103 and a red streak going up his foot which showed no elevated white count no shift. X-ray of the left foot shows no sign of pending the sensitivity. Progress of Wound: It seemsSaw the wound on Thursday patient is much better today wound looks better using Promogran and be helping a lot. Pending on his antibiotic therapy we will call him with results of that. We will continue with the same treatment for now and follow-up with him up in 1 week Subjective Subjective Patient is happy with outcomes was in the room she agreed with the plan. Suggested if things are not healing right we will get an MRI but I have to have good evidence for an MRI. Objective Data Objective Data So measurements were taken today's appears smaller than it was on Thursday less depth. We will continue using the Promogran and padded dressing Patient was also encouraged to get better control of his blood sugars we will start him on Jardiance 25 mg a day Vital Signs: Vital Signs Temp Pulse Resp BP O2 Del Method 97.3 F L 54 L 16 130/68 H Room Air 12/10/22 11:22 12/10/22 11:22 12/10/22 11:22 12/10/22 11:22 12/10/22 11:22 Oxygen Delivery Method Room Air Weight: 242 lb Body Mass Index (BMI) 28.7 Lab / Micro Data Attestation: I reviewed the patient's lab results. Radiography Diagnostic Testing: Radiology Impression Foot X-Ray 12/09/22 11:00 IMPRESSION: Relatively stable foot with no acute abnormality or bony erosion to suggest osteomyelitis. Electronically Signed: Sid Boyle MD at 9:43 EDT , Physical Exam Const oriented x3 General Appearance: cooperative Exam Limitations: no limitations HEENT normocephalic Eyes General Eye: normal appearance of both eyes Resp normal respiratory effort Effort and Inspection: able to speak in complete sentences Auscultation: clear to auscultation bilaterally Cardio regular rate and regular rhythm Palpation: normal PMI Rate: regular rate Rhythm: regular rhythm Extremity Negative for normal to inspection Extremity Narrative: Left foot slight deformity at the fifth metatarsal from a previous fracture. Open wound on plantar side of foot. With it going up the side of the foot has a superficial area. Skin no rashes or lesions noted Skin Narrative: Does have a red streak going up his left lateral foot pending his culture results Open wound on plantar side of foot General Skin Exam: dry skin and erythema Lesions: no lesions Psych Appearance: grossly normal Speech: normal speech Thought Content: normal thought content Judgement: judgement good Debridement Note Debridement Note Wound debrided: Left DFU Wound Grade/Stage: Stage II Type of Debridement: Excisional debridement Anesthesia Used: 5% Lidocaine Gel Depth: in the subcutaneous layer Percentage of wound debrided: 100 Instrument Used: 5mm curette Tissue Removed: Fibrin devitalized tissue Severity: Fat Layer Exposed Amount of bleeding with debridement: Mild Bleeding Controlled with: Compression and gauze Patient tolerated procedure: Patient tolerated procedure well Post-Debridement Measurements and Additional Note: Post-Debridement Measurements/Treatment - Nurse 1 - General Ulcer Assessment Start: 12/10/22 11:20 Freq: Status: Active Protocol: .LOWALANNA Activity Type Activity Date Activity User E-sign Co-sign Detail Recorded Client Recorded Date Recorded By Document 12/10/22 11:22 [facility] Desktop 12/10/22 11:40 [facility] 12/10/22 11:22 - Today's Visit Information Type of service Follow-up Visit (Physician/WOOL HANKER ) Arrival Mode Ambulatory Transfer Assistance None Accompanied by Patient Identification Verified (Name & Yes ) Patient Requires Transmission-Based No Precautions Height and Weight Height 6 ft 5 in Weight 242 lb Weight in Pounds 242.0 lbs Weight Measurement Method Estimated by Patient Body Mass Index (BMI) 28.7 BMI Classification Overweight BSA - Genevieve 2.43 Vital Signs Temperature (97.8 F-99.1 F) 97.3 F L Temperature Source Temporal Pulse Rate (60-100) 54 L Pulse Location Monitor Respiratory Rate (12-18) 16 Respiratory rate source Observation Oxygen Delivery Method Room Air Blood Pressure (90/60-120/80) 130/68 H Blood Pressure Mean (mm Hg) 88 Source Monitor Position Sitting Blood Pressure Location Left Arm History Since Last Visit- (Skip if this is Patient's initial visit) Left Footwear Removable Cast Walker/Walking Boot Right Footwear Regular Shoe Pain Scale: 0-10 Numeric Is Patient Pain Free? Yes Lower Extremity Assessment/ Foot Assessment/ Toe Nail Assessment Right -Posterior Tibial Doppler Multiphasic -Dorsalis Pedis Doppler Multiphasic -Extremity Color Pale -Hair Growth on Legs No -Hair Growth on Toes No -Temperature of Extremity Warm -Other Deformity No -Prior Foot Ulcer No -Charcot Joint No -Prior Amputation No -Thick No -Discolored No -Deformed No -Improper Length & Hygeine No Left -Posterior Tibial Doppler Monophasic -Dorsalis Pedis Doppler Monophasic -Extremity Color Pale -Hair Growth on Legs Yes -Hair Growth on Toes Yes -Temperature of Extremity Warm -Other Deformity No -Prior Foot Ulcer No -Charcot Joint Yes -Prior Amputation No -Thick No -Discolored No -Deformed No -Improper Length & Hygeine No Neuropathy Assessment Feet - Top Side and Bottom <Entered> (a) Communication Assessment Right Hearing Abillity Normal Left Hearing Abillity Normal Visual Assistive Devices Glasses Teaching Assessment Preferences Verbal,Written, Audio/Visual, Demonstration Barriers to Learning None Willingness to Engage in Self Management High Activies Readiness to Engage in Self Management High Activities Anxiety Level Calm Cooperation Cooperative Perception Coherent Interest in Health Problem Asks Questions Education Importance Acknowledges Need Does Patient Smoke tobacco or other No substances Smoking Status Former smoker Is Patient Diabetic Yes Functional Assessment Recent Decline in Ability to Perform Denies Any Declines Culture/Oriental Orthodox/Program Dir Cultural/Oriental Orthodox Needs that may affect No Treatment Plan Teaching: Wound Center *Welcome to the Wound Center -Person Taught Patient, Significant Other -Teaching Method Discussion -Response to teaching Verbalize understanding Welcome to the Wound Care Center Bulgarian (a) 1 - - 2 - + 3 - - 4 - + 5 - - 6 - + WC - Nurse 1 - General Ulcer Measurement Start: 12/10/22 11:20 Freq: Status: Active Protocol: Activity Type Activity Date Activity User E-sign Co-sign Detail Recorded Client Recorded Date Recorded By Document 12/10/22 11:22 [facility] Desktop 12/10/22 11:40 [facility] 12/10/22 11:22 Wound Center Nurse 1 #3- L LAT PLANTAR FOOT -Combined with other wound No -Current Size (cm) - Length 0.9 -Current Size (cm) - Width 1.2 -Current Size (cm) - Depth 0.2 -Total Square Cm 1.08 -Date of Last Picture (Recall this 12/10/22 field) -Photo Taken Yes -Epithelialization None Present -Tunneling No -Undermining/Tunneling No -Circular Undermining No -Exudate Amt Medium -Exudate Type Serosanguineous -Wound Margin Distinct, Outline Attached -Granulation Amt Medium (34-66%) -Granulation Quality Pale,Red -Slough/Fibrin Yes -Necrosis Amt Medium (34-66%) -Necrotic Tissue Type Adherent Slough -Texture (Mariama-wound Skin Appearance) Assessed, Scarring -Moisture (Mariama-wound Skin Appearance) Assessed -Color (Mariama-wound Skin Appearance) Assessed, Erythema -Temperature (Mariama-wound Skin No Abnormality Appearance) (Pt Warm) -Tenderness on Palpation (Mariama-wound No Skin Appearance) -Ulcer Cleansing Soap and Water -Foul Odor after Cleansing No -Anesthetic Used 4% Lidocaine Solution Right Calf (cm) 42.5 Right Ankle (cm) 23.3 Left Calf (cm) 42 Left Ankle (cm) 22.9 - Nurse 2 - General Ulcer CM Notes Start: 12/10/22 11:20 Freq: Status: Active Protocol: Activity Type Activity Date Activity User E-sign Co-sign Detail Recorded Client Recorded Date Recorded By Document 12/10/22 11:52 MW [id number] 12/10/22 12:00 MW 12/10/22 11:52 Wound Center Nurse 2 #3- L LAT PLANTAR FOOT -Time 11:53 -Correct Patient Yes -Correct Side, Site, Position Yes -Correct Procedure Yes -Procedure Performed Yes -Type of Procedure Debridement -Clinical Debridement Subcutaneous -Tissue Removed Subcutaneous -Post Debridement (cm) - Length 0.7 -Post Debridement (cm) - Width 1.5 -Post Debridement (cm) - Depth 0.2 -Total Square (Post) (cm) 1.05 -Area of Debridement (cm) - Length 0.7 -Area of Debridement (cm) - Width 1.5 -Total Square (Area) (cm) 1.05 -Tunneling No -Undermining/Tunneling No -Circular Undermining No -Wound/Ulcer Outcome Not Healed -Ulcer Cleansing Rinsed/ Irrigated with Saline -Foul Odor after Cleansing No -Bioengineered Tissue No -Bleeding Controlled with Pressure -Treatment Response Procedure Tolerated Well -Offloading No -Debridement - Subq, 1st 20sq cm Yes Pain Scale: 0-10 Numeric Is Patient Pain Free? Yes Assessment/Plan Assessment/Plan (1) Infected wound: CODE(S): T14.8XXA - Other injury of unspecified body region, initial encounter; L08.9 - Local infection of the skin and subcutaneous tissue, unspecified (2) 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: CODE(S): E08.621 - Diabetes mellitus due to underlying condition with foot ulcer; L97.509 - Non-pressure chronic ulcer of other part of unspecified foot with unspecified severity QUALIFIERS: Diabetic foot ulcer location: toe Laterality: left Non-pressure ulcer stage: limited to breakdown of skin Qualified Code(s): E08.621 - Diabetes mellitus due to underlying condition with foot ulcer; L97.521 - Non-pressure chronic ulcer of other part of left foot limited to breakdown of skin PLAN: Wash foot with antibacterial soap such as Dial Apply Promogran to base of wound moistened cover with Adaptic and absorbent dressing daily We will call with results of cultures X-rays negative for osteomyelitis Labs are negative for infection of blood Follow-up in 1 week (3) Mixed diabetic ulcer of foot: (4) Nonhealing nonsurgical wound: CODE(S): T14.8XXA - Other injury of unspecified body region, initial encounter
[2022-12-17 08:46] VITALS: BP 176/78; PULSE 53; RESP 18; TEMP 36.1; BMI 28.7
--- NOTE | 2022-12-17 09:00 | PN.PCM_ITS ---
History of Present Illness Date of Service: 12/17/22 Chief Complaint: Follow-up DFU L lateral foot History of Wound: D7-year-old white male who has had history of this openings for greater than 6 months. He has been seeing Dr. Hooper for the last 6 months following up and has tried several initiatives but is never healed. He finally referred here to the wound center Patient has been using Promogran packed into wound base and moisten covered with absorbent dressing daily. Recently labs were drawn for a fever he has had of 103 and a red streak going up his foot which showed no elevated white count no shift. X-ray of the left foot shows no sign of pending the sensitivity. 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 on and he received IV therapy and saw the infectious disease doctor. MRI shows that he still has a fractured left foot never healed. But apparently has no osteomyelitis. They started him on something with silver dressings and the lateral aspect of the wound is healed he just has a small triangle on the base of the plantar side of the foot. Depth is better skin around the area it looks good there is no red lines or streaks. Patient is currently on Levaquin and metronidazole. Subjective Subjective Patient states he is not having the pain that he was in the foot and that he is following up with Dr. Lucero for podiatry about the foot also for the fracture. Objective Data Objective Data The wound is much smaller and looks good surrounding tissue looks healthy is healing he will continue offloading with his boot. Vital Signs: Vital Signs Temp Pulse Resp BP O2 Del Method 96.9 F L 53 L 18 176/78 H Room Air 12/17/22 08:46 12/17/22 08:46 12/17/22 08:46 12/17/22 08:46 12/10/22 11:22 Oxygen Delivery Method Room Air Weight: 242 lb Body Mass Index (BMI) 28.7 Lab / Micro Data Attestation: I reviewed the patient's lab results. Physical Exam Const oriented x3 General Appearance: cooperative Exam Limitations: no limitations HEENT normocephalic Eyes General Eye: normal appearance of both eyes Resp normal respiratory effort Effort and Inspection: able to speak in complete sentences Auscultation: clear to auscultation bilaterally Cardio regular rate and regular rhythm Palpation: normal PMI Rate: regular rate Rhythm: regular rhythm Extremity Negative for normal to inspection Extremity Narrative: Left foot slight deformity at the fifth metatarsal from a previous fracture. Open wound on plantar side of foot. With it going up the side of the foot has a superficial area. Skin no rashes or lesions noted Skin Narrative: Does have a red streak going up his left lateral foot pending his culture results Open wound on plantar side of foot General Skin Exam: dry skin and erythema Lesions: no lesions Psych Appearance: grossly normal Speech: normal speech Thought Content: normal thought content Judgement: judgement good Debridement Note Debridement Note Wound debrided: Diabetic foot ulcer left plantar foot Laterality: Left Wound Grade/Stage: Stage II Type of Debridement: Excisional debridement Anesthesia Used: 5% Lidocaine Gel Depth: in the subcutaneous layer Percentage of wound debrided: 100 Instrument Used: 7mm curette Tissue Removed: Devitalized tissue and fibrin Severity: Fat Layer Exposed Amount of bleeding with debridement: None Bleeding Controlled with: Compression and gauze Patient tolerated procedure: Patient tolerated procedure well Post-Debridement Measurements and Additional Note: Post-Debridement Measurements/Treatment - Nurse 1 - General Ulcer Assessment Start: 12/10/22 11:20 Freq: Status: Active Protocol: MONI Activity Type Activity Date Activity User E-sign Co-sign Detail Recorded Client Recorded Date Recorded By Document 12/10/22 11:22 [facility] Desktop 12/10/22 11:40 [facility] Document 12/17/22 08:46 [id number] 12/17/22 08:49 RB 12/10/22 12/17/22 11:22 08:46 - Today's Visit Information Type of service Follow-up Visit Follow-up Visit (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/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 SERGEANT (Physician/INFANTRY SENIOR SERGEANT ) ) Arrival Mode Ambulatory Ambulatory Transfer Assistance None None Accompanied by Patient Identification Verified (Name & Yes Yes ) Patient Requires Transmission-Based No No Precautions Height and Weight Height 6 ft 5 in Weight 242 lb Weight in Pounds 242.0 lbs Weight Measurement Method Estimated by Patient Body Mass Index (BMI) 28.7 28.7 BMI Classification Overweight Overweight BSA - Genevieve 2.43 Vital Signs Temperature (97.8 F-99.1 F) 97.3 F L 96.9 F L Temperature Source Temporal Temporal Pulse Rate (60-100) 54 L 53 L Pulse Location Monitor Monitor Respiratory Rate (12-18) 16 18 Respiratory rate source Observation Observation Oxygen Delivery Method Room Air Blood Pressure (90/60-120/80) 130/68 H 176/78 H Blood Pressure Mean (mm Hg) 88 110 Source Monitor Monitor Position Sitting Semi-Fowlers Blood Pressure Location Left Arm Left Arm History Since Last Visit- (Skip if this is Patient's initial visit) Have you changed medications since your No last visit? Any new allergies or adverse reactions No Had a fall/change in ADL's that may No increase risk of falls Signs or symptoms of abuse and/or No neglect since last visit Have you been in the hospital since your No last visit? Has dressing in place as prescribed Yes Has compression in place as prescribed No Has offloadiing in place as prescribed Yes Experienced any changes in pain level or No management Left Footwear Removable Cast Walker/Walking Boot Right Footwear Regular Shoe Pain Scale: 0-10 Numeric Is Patient Pain Free? Yes Yes Lower Extremity Assessment/ Foot Assessment/ Toe Nail Assessment Right -Posterior Tibial Doppler Multiphasic -Dorsalis Pedis Doppler Multiphasic -Extremity Color Pale -Hair Growth on Legs No -Hair Growth on Toes No -Temperature of Extremity Warm -Other Deformity No -Prior Foot Ulcer No -Charcot Joint No -Prior Amputation No -Thick No -Discolored No -Deformed No -Improper Length & Hygeine No Left -Posterior Tibial Doppler Monophasic -Dorsalis Pedis Doppler Monophasic -Extremity Color Pale -Hair Growth on Legs Yes -Hair Growth on Toes Yes -Temperature of Extremity Warm -Other Deformity No -Prior Foot Ulcer No -Charcot Joint Yes -Prior Amputation No -Thick No -Discolored No -Deformed No -Improper Length & Hygeine No Neuropathy Assessment Feet - Top Side and Bottom <Entered> (a) Communication Assessment Right Hearing Abillity Normal Left Hearing Abillity Normal Visual Assistive Devices Glasses Teaching Assessment Preferences Verbal,Written, Audio/Visual, Demonstration Barriers to Learning None Willingness to Engage in Self Management High Activies Readiness to Engage in Self Management High Activities Anxiety Level Calm Cooperation Cooperative Perception Coherent Interest in Health Problem Asks Questions Education Importance Acknowledges Need Does Patient Smoke tobacco or other No substances Smoking Status Former smoker Is Patient Diabetic Yes Functional Assessment Recent Decline in Ability to Perform Denies Any Declines Culture/Sabianist/Animal Cop Cultural/Sabianist Needs that may affect No Treatment Plan Teaching: Wound Center *Welcome to the Wound Center -Person Taught Patient, Significant Other -Teaching Method Discussion -Response to teaching Verbalize understanding Welcome to the Wound Care Center Tunisian (a) 1 - - 2 - + 3 - - 4 - + 5 - - 6 - + WC - Nurse 1 - General Ulcer Measurement Start: 12/10/22 11:20 Freq: Status: Active Protocol: Activity Type Activity Date Activity User E-sign Co-sign Detail Recorded Client Recorded Date Recorded By Document 12/10/22 11:22 [facility] Desktop 12/10/22 11:40 [facility] Document 12/17/22 08:46 RB [id number] 12/17/22 08:49 RB 12/10/22 12/17/22 11:22 08:46 Wound Center Nurse 1 #3- L LAT PLANTAR FOOT -Combined with other wound No No -Current Size (cm) - Length 0.9 0.5 -Current Size (cm) - Width 1.2 0.7 -Current Size (cm) - Depth 0.2 0.1 -Total Square Cm 1.08 0.35 -Date of Last Picture (Recall this 12/10/22 field) -Photo Taken Yes -Epithelialization None Present -Tunneling No No -Undermining/Tunneling No No -Circular Undermining No No -Exudate Amt Medium Medium -Exudate Type Serosanguineous Serosanguineous -Wound Margin Distinct, Distinct, Outline Outline Attached Attached -Granulation Amt Medium (34-66%) Medium (34-66%) -Granulation Quality Pale,Red [place] -Slough/Fibrin Yes Yes -Necrosis Amt Medium (34-66%) Medium (34-66%) -Necrotic Tissue Type Adherent Slough Adherent Slough -Structure Exposed N/A -Texture (Mariama-wound Skin Appearance) Assessed, Assessed Scarring -Moisture (Mariama-wound Skin Appearance) Assessed Assessed -Color (Mariama-wound Skin Appearance) Assessed, Assessed Erythema -Temperature (Mariama-wound Skin No Abnormality No Abnormality Appearance) (Pt Warm) (Pt Warm) -Tenderness on Palpation (Mariama-wound No No Skin Appearance) -Ulcer Cleansing Soap and Water Wound Cleanser -Foul Odor after Cleansing No No -Anesthetic Used 4% Lidocaine 5% Lidocaine Solution Gel Lower Limb Edema Present Yes Right Calf (cm) 42.5 Right Ankle (cm) 23.3 Left Calf (cm) 42 40 Left Ankle (cm) 22.9 23.1 WC - Nurse 2 - General Ulcer CM Notes Start: 12/10/22 11:20 Freq: Status: Active Protocol: Activity Type Activity Date Activity User E-sign Co-sign Detail Recorded Client Recorded Date Recorded By Document 12/10/22 11:52 MW [id number] 12/10/22 12:00 MW 12/10/22 11:52 Wound Center Nurse 2 #3- L LAT PLANTAR FOOT -Time 11:53 -Correct Patient Yes -Correct Side, Site, Position Yes -Correct Procedure Yes -Procedure Performed Yes -Type of Procedure Debridement -Clinical Debridement Subcutaneous -Tissue Removed Subcutaneous -Post Debridement (cm) - Length 0.7 -Post Debridement (cm) - Width 1.5 -Post Debridement (cm) - Depth 0.2 -Total Square (Post) (cm) 1.05 -Area of Debridement (cm) - Length 0.7 -Area of Debridement (cm) - Width 1.5 -Total Square (Area) (cm) 1.05 -Tunneling No -Undermining/Tunneling No -Circular Undermining No -Wound/Ulcer Outcome Not Healed -Ulcer Cleansing Rinsed/ Irrigated with Saline -Foul Odor after Cleansing No -Bioengineered Tissue No -Bleeding Controlled with Pressure -Treatment Response Procedure Tolerated Well -Offloading No -Debridement - Subq, 1st 20sq cm Yes Pain Scale: 0-10 Numeric Is Patient Pain Free? Yes Assessment/Plan Assessment/Plan (1) Infected wound: CODE(S): T14.8XXA - Other injury of unspecified body region, initial encounter; L08.9 - Local infection of the skin and subcutaneous tissue, unspecified (2) 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: CODE(S): E08.621 - Diabetes mellitus due to underlying condition with foot ulcer; L97.509 - Non-pressure chronic ulcer of other part of unspecified foot with unspecified severity QUALIFIERS: Diabetic foot ulcer location: toe Laterality: left Non-pressure ulcer stage: limited to breakdown of skin Qualified Code(s): E08.621 - Diabetes mellitus due to underlying condition with foot ulcer; L97.521 - Non-pressure chronic ulcer of other part of left foot limited to breakdown of skin PLAN: Wash foot with antibacterial soap such as Dial Apply Mimi to base of wound moistened cover with Adaptic and absorbent dressing daily Follow-up in 1 week (3) Mixed diabetic ulcer of foot: (4) Nonhealing nonsurgical wound: CODE(S): T14.8XXA - Other injury of unspecified body region, initial encounter
== END 2022-12-18 23:59 | disposition home or self-care (01) ==
LOC: WC 08:30
PROVIDERS: PCP Family Medicine; Referring Provider Nurse Practitioner; Visit Provider Nurse Practitioner
DX: E11.621 Type 2 diabetes mellitus with foot ulcer (principal); L97.521 Non-pressure chronic ulcer of other part of left foot limited to breakdown of skin; L08.9 Local infection of the skin and subcutaneous tissue, unspecified; T14.8XXA Other injury of unspecified body region, initial encounter
CPT/HCPCS: 11042; 73630; 99213; G0463

== ENCOUNTER 2023-01-14 08:30 | Outpatient (RCR) | payer OTHER, SELFPAY ==
[2022-12-19 00:23] VITALS: BP 176/78; PULSE 53; RESP 18; TEMP 36.1; BMI 28.7
[2022-12-24 08:36] VITALS: BP 147/90; PULSE 58; RESP 18; TEMP 36.6; BMI 28.7
--- NOTE | 2022-12-24 09:19 | PN.PCM_ITS ---
History of Present Illness Date of Service: 12/24/22 Chief Complaint: Follow-up DFU L lateral foot History of Wound: 47-year-old white male who has had history of this openings for greater than 6 months. He has been seeing Dr. Hooper for the last 6 months following up and has tried several initiatives but is never healed. He finally referred here to the wound center Patient has been using Promogran packed into wound base and moisten covered with absorbent dressing daily. Recently labs were drawn for a fever he has had of 103 and a red streak going up his foot which showed no elevated white count no shift. X-ray of the left foot shows no sign of pending the sensitivity. MRI shows an old fracture no osteomyelitis Was admitted to hospital and had IV antibiotics Sent home on Flagyl Progress of Wound: The wound measures smaller flatter looks actually good except he still has that lump which is causing like a deformity on the lateral aspect of his foot still following up with podiatry. We will continue using the Mimi doing well on it. Padding it and offloading with a boot Subjective Subjective Patient is happy with outcomes Objective Data Objective Data As stated above healing well Vital Signs: Vital Signs Temp Pulse Resp BP 98 F 58 L 18 147/90 H 12/24/22 08:36 12/24/22 08:36 12/24/22 08:36 12/24/22 08:36 Weight: 242 lb Body Mass Index (BMI) 28.7 Lab / Micro Data Attestation: I reviewed the patient's lab results. Physical Exam Const oriented x3 General Appearance: cooperative Exam Limitations: no limitations HEENT normocephalic Eyes General Eye: normal appearance of both eyes Resp normal respiratory effort Effort and Inspection: able to speak in complete sentences Auscultation: clear to auscultation bilaterally Cardio regular rate and regular rhythm Palpation: normal PMI Rate: regular rate Rhythm: regular rhythm Extremity Negative for normal to inspection Extremity Narrative: Left foot slight deformity at the fifth metatarsal from a previous fracture. Open wound on plantar side of foot. With it going up the side of the foot has a superficial area. Skin no rashes or lesions noted Skin Narrative: Does have a red streak going up his left lateral foot pending his culture results Open wound on plantar side of foot General Skin Exam: dry skin and erythema Lesions: no lesions Psych Appearance: grossly normal Speech: normal speech Thought Content: normal thought content Judgement: judgement good Debridement Note Debridement Note Wound debrided: Left plantar foot Wound Grade/Stage: Diabetic foot ulcer stage II Type of Debridement: Excisional debridement Anesthesia Used: 5% Lidocaine Gel Depth: Down to and including healthy tissue Percentage of wound debrided: 100 Instrument Used: 5mm curette Tissue Removed: Fibrin some devitalized tissue Severity: Limited To Skin Breakdown Amount of bleeding with debridement: Mild Bleeding Controlled with: Compression and gauze Patient tolerated procedure: Patient tolerated procedure well Post-Debridement Measurements and Additional Note: Post-Debridement Measurements/Treatment - Nurse 1 - General Ulcer Assessment Start: 12/24/22 08:36 Freq: Status: Active Protocol: MONI Activity Type Activity Date Activity User E-sign Co-sign Detail Recorded Client Recorded Date Recorded By Document 12/24/22 08:36 RB [id number] 12/24/22 08:38 RB 12/24/22 08:36 WC - Today's Visit Information Type of service Follow-up Visit (Physician/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 OF 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 ) Arrival Mode Ambulatory Transfer Assistance None Patient Identification Verified (Name & Yes ) Patient Requires Transmission-Based No Precautions Height and Weight Body Mass Index (BMI) 28.7 BMI Classification Overweight Vital Signs Temperature (97.8 F-99.1 F) 98 F Temperature Source Temporal Pulse Rate (60-100) 58 L Pulse Location Monitor Respiratory Rate (12-18) 18 Respiratory rate source Observation Blood Pressure (90/60-120/80) 147/90 H Blood Pressure Mean (mm Hg) 109 Source Monitor Position Semi-Fowlers Blood Pressure Location Left Arm History Since Last Visit- (Skip if this is Patient's initial visit) Have you changed medications since your No last visit? Any new allergies or adverse reactions No Had a fall/change in ADL's that may No increase risk of falls Signs or symptoms of abuse and/or No neglect since last visit Have you been in the hospital since your No last visit? Has dressing in place as prescribed Yes Has compression in place as prescribed Yes Has offloadiing in place as prescribed Yes Experienced any changes in pain level or No management Pain Scale: 0-10 Numeric Is Patient Pain Free? Yes - Nurse 1 - General Ulcer Measurement Start: 12/24/22 08:36 Freq: Status: Active Protocol: Activity Type Activity Date Activity User E-sign Co-sign Detail Recorded Client Recorded Date Recorded By Document 12/24/22 08:36 RB [id number] 12/24/22 08:38 RB 12/24/22 08:36 Wound Center Nurse 1 #3- L LAT PLANTAR FOOT -Combined with other wound No -Current Size (cm) - Length 0.6 -Current Size (cm) - Width 0.7 -Current Size (cm) - Depth 0.2 -Total Square Cm 0.42 -Photo Taken Yes -Tunneling No -Undermining/Tunneling No -Circular Undermining No -Exudate Amt Medium -Exudate Type Serosanguineous -Wound Margin Distinct, Outline Attached -Granulation Amt Medium (34-66%) -Granulation Quality [place] -Slough/Fibrin Yes -Necrosis Amt Medium (34-66%) -Necrotic Tissue Type Adherent Slough -Structure Exposed N/A -Texture (Mariama-wound Skin Appearance) Assessed -Moisture (Mariama-wound Skin Appearance) Assessed -Color (Mariama-wound Skin Appearance) Assessed -Temperature (Mariama-wound Skin No Abnormality Appearance) (Pt Warm) -Tenderness on Palpation (Mariama-wound No Skin Appearance) -Ulcer Cleansing Wound Cleanser -Foul Odor after Cleansing No -Anesthetic Used 5% Lidocaine Gel Lower Limb Edema Present Yes Left Calf (cm) 41 Left Ankle (cm) 22.5 WC - Nurse 2 - General Ulcer CM Notes Start: 12/24/22 08:36 Freq: Status: Active Protocol: Activity Type Activity Date Activity User E-sign Co-sign Detail Recorded Client Recorded Date Recorded By Document 12/24/22 08:55 MW [id number] 12/24/22 08:56 MW 12/24/22 08:55 Wound Center Nurse 2 #3- L LAT PLANTAR FOOT -Time 08:55 -Correct Patient Yes -Correct Side, Site, Position Yes -Correct Procedure Yes -Procedure Performed Yes -Type of Procedure Debridement -Clinical Debridement Subcutaneous -Tissue Removed Subcutaneous -Post Debridement (cm) - Length 0.8 -Post Debridement (cm) - Width 1.7 -Post Debridement (cm) - Depth 0.2 -Total Square (Post) (cm) 1.36 -Area of Debridement (cm) - Length 0.8 -Area of Debridement (cm) - Width 1.7 -Total Square (Area) (cm) 1.36 -Tunneling No -Undermining/Tunneling No -Circular Undermining No -Wound/Ulcer Outcome Not Healed -Ulcer Cleansing Rinsed/ Irrigated with Saline -Foul Odor after Cleansing No -Bioengineered Tissue No -Bleeding Controlled with Pressure -Treatment Response Procedure Tolerated Well -Offloading No -Debridement - Subq, 1st 20sq cm Yes Pain Scale: 0-10 Numeric Is Patient Pain Free? Yes Assessment/Plan Assessment/Plan (1) Infected wound: CODE(S): T14.8XXA - Other injury of unspecified body region, initial encounter; L08.9 - Local infection of the skin and subcutaneous tissue, unspecified (2) 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: CODE(S): E08.621 - Diabetes mellitus due to underlying condition with foot ulcer; L97.509 - Non-pressure chronic ulcer of other part of unspecified foot with unspecified severity QUALIFIERS: Diabetic foot ulcer location: toe Laterality: left Non-pressure ulcer stage: limited to breakdown of skin Qualified Code(s): E08.621 - Diabetes mellitus due to underlying condition with foot ulcer; L97.521 - Non-pressure chronic ulcer of other part of left foot limited to breakdown of skin PLAN: Wash foot with antibacterial soap such as Dial Apply Mimi to base of wound moistened cover with Adaptic and absorbent dressing daily Follow-up in 1 week (3) Mixed diabetic ulcer of foot: (4) Nonhealing nonsurgical wound: CODE(S): T14.8XXA - Other injury of unspecified body region, initial encounter
[2022-12-31 08:44] VITALS: BP 134/76; PULSE 82; RESP 18; TEMP 35.4; BMI 28.7
--- NOTE | 2022-12-31 10:13 | PN.PCM_ITS ---
History of Present Illness Date of Service: 12/31/22 Chief Complaint: Follow-up DFU L lateral foot History of Wound: 47-year-old white male who has had history of this openings for greater than 6 months. He has been seeing Dr. Hooper for the last 6 months following up and has tried several initiatives but is never healed. He finally referred here to the wound center Patient has been using Promogran packed into wound base and moisten covered with absorbent dressing daily. Recently labs were drawn for a fever he has had of 103 and a red streak going up his foot which showed no elevated white count no shift. X-ray of the left foot shows no sign of pending the sensitivity. MRI shows an old fracture no osteomyelitis Was admitted to hospital and had IV antibiotics Sent home on Flagyl Progress of Wound: The wound measures smaller flatter looks actually good except he still has that lump which is causing like a deformity on the lateral aspect of his foot still following up with podiatry. We will continue using the Mimi doing well on it. Padding it and offloading with a boot. Measuring smaller some redness developed on the lateral foot we will reculture. Patient is down with all of his meds Subjective Subjective States knot is tender as it has been and feels better. Seeing orthopedic about the foot and discussed it with him about the MRI and that it was an old fracture that is probably healed and it just shows that it had a fracture does not mean that still fractured. States also was fitted for a diabetic shoe Objective Data Objective Data As stated above doing well measuring smaller we will culture today. No odor noted we will continue using the Mimi Vital Signs: Vital Signs Temp Pulse Resp BP 95.7 F L 82 18 134/76 H 12/31/22 08:44 12/31/22 08:44 12/31/22 08:44 12/31/22 08:44 Weight: 242 lb Body Mass Index (BMI) 28.7 Lab / Micro Data Attestation: I reviewed the patient's lab results. Physical Exam Const oriented x3 General Appearance: cooperative Exam Limitations: no limitations HEENT normocephalic Eyes General Eye: normal appearance of both eyes Resp normal respiratory effort Effort and Inspection: able to speak in complete sentences Auscultation: clear to auscultation bilaterally Cardio regular rate and regular rhythm Palpation: normal PMI Rate: regular rate Rhythm: regular rhythm Extremity Negative for normal to inspection Extremity Narrative: Left foot slight deformity at the fifth metatarsal from a previous fracture. Open wound on plantar side of foot. With it going up the side of the foot has a superficial area. Skin no rashes or lesions noted Skin Narrative: Does have a red streak going up his left lateral foot pending his culture results Open wound on plantar side of foot General Skin Exam: dry skin and erythema Lesions: no lesions Psych Appearance: grossly normal Speech: normal speech Thought Content: normal thought content Judgement: judgement good Debridement Note Debridement Note Wound debrided: Left plantar foot decubitus ulcer Laterality: Left Wound Grade/Stage: Stage II Type of Debridement: Excisional debridement Anesthesia Used: 5% Lidocaine Gel Depth: in the subcutaneous layer Percentage of wound debrided: 100 Instrument Used: 5mm curette Tissue Removed: Callus devitalized tissue fibrin Severity: Fat Layer Exposed Amount of bleeding with debridement: Mild Bleeding Controlled with: Compression and gauze Patient tolerated procedure: Patient tolerated procedure well Post-Debridement Measurements and Additional Note: Post-Debridement Measurements/Treatment - Nurse 1 - General Ulcer Assessment Start: 12/24/22 08:36 Freq: Status: Active Protocol: [email or web address] Activity Type Activity Date Activity User E-sign Co-sign Detail Recorded Client Recorded Date Recorded By Document 12/24/22 08:36 [id number] 12/24/22 08:38 RB Document 12/31/22 08:44 [id number] 12/31/22 08:46 RB 12/24/22 12/31/22 08:36 08:44 - Today's Visit Information Type of service Follow-up Visit Follow-up Visit (Physician/TRANSPLANT NURSE PRACTITIONER (Physician/TRANSPLANT NURSE PRACTITIONER ) ) Arrival Mode Ambulatory Ambulatory Transfer Assistance None None Patient Identification Verified (Name & Yes Yes ) Patient Requires Transmission-Based No No Precautions Height and Weight Body Mass Index (BMI) 28.7 28.7 BMI Classification Overweight Overweight Vital Signs Temperature (97.8 F-99.1 F) 98 F 95.7 F L Temperature Source Temporal Temporal Pulse Rate (60-100) 58 L 82 Pulse Location Monitor Monitor Respiratory Rate (12-18) 18 18 Respiratory rate source Observation Observation Blood Pressure (90/60-120/80) 147/90 H 134/76 H Blood Pressure Mean (mm Hg) 109 95 Source Monitor Monitor Position Semi-Fowlers Semi-Fowlers Blood Pressure Location Left Arm Left Arm History Since Last Visit- (Skip if this is Patient's initial visit) Have you changed medications since your No No last visit? Any new allergies or adverse reactions No No Had a fall/change in ADL's that may No No increase risk of falls Signs or symptoms of abuse and/or No No neglect since last visit Have you been in the hospital since your No No last visit? Has dressing in place as prescribed Yes Yes Has compression in place as prescribed Yes No Has offloadiing in place as prescribed Yes Yes Experienced any changes in pain level or No No management Pain Scale: 0-10 Numeric Is Patient Pain Free? Yes Yes WC - Nurse 1 - General Ulcer Measurement Start: 12/24/22 08:36 Freq: Status: Active Protocol: Activity Type Activity Date Activity User E-sign Co-sign Detail Recorded Client Recorded Date Recorded By Document 12/24/22 08:36 RB [id number] 12/24/22 08:38 RB Document 12/31/22 08:44 RB [id number] 12/31/22 08:46 RB 12/24/22 12/31/22 08:36 08:44 Wound Center Nurse 1 #3- L LAT PLANTAR FOOT -Combined with other wound No No -Current Size (cm) - Length 0.6 0.7 -Current Size (cm) - Width 0.7 0.7 -Current Size (cm) - Depth 0.2 0.2 -Total Square Cm 0.42 0.49 -Photo Taken Yes Yes -Tunneling No No -Undermining/Tunneling No No -Circular Undermining No No -Exudate Amt Medium Medium -Exudate Type Serosanguineous Serosanguineous -Wound Margin Distinct, Thickened Outline Attached -Granulation Amt Medium (34-66%) Medium (34-66%) -Granulation Quality [place] Primrose -Slough/Fibrin Yes Yes -Necrosis Amt Medium (34-66%) Medium (34-66%) -Necrotic Tissue Type Adherent Slough Adherent Slough -Structure Exposed N/A N/A -Texture (Mariama-wound Skin Appearance) Assessed Callus -Moisture (Mariama-wound Skin Appearance) Assessed Assessed -Color (Mariama-wound Skin Appearance) Assessed Assessed -Temperature (Mariama-wound Skin No Abnormality No Abnormality Appearance) (Pt Warm) (Pt Warm) -Tenderness on Palpation (Mariama-wound No No Skin Appearance) -Ulcer Cleansing Wound Cleanser Wound Cleanser -Foul Odor after Cleansing No No -Anesthetic Used 5% Lidocaine 5% Lidocaine Gel Gel Lower Limb Edema Present Yes Left Calf (cm) 41 Left Ankle (cm) 22.5 WC - Nurse 2 - General Ulcer CM Notes Start: 12/24/22 08:36 Freq: Status: Active Protocol: Activity Type Activity Date Activity User E-sign Co-sign Detail Recorded Client Recorded Date Recorded By Document 12/24/22 08:55 MW [id number] 12/24/22 08:56 MW Document 12/31/22 08:49 MW [id number] 12/31/22 08:54 MW 12/24/22 12/31/22 08:55 08:49 Wound Center Nurse 2 #3- L LAT PLANTAR FOOT -Time 08:55 08:49 -Correct Patient Yes Yes -Correct Side, Site, Position Yes Yes -Correct Procedure Yes Yes -Procedure Performed Yes Yes -Type of Procedure Debridement Debridement -Clinical Debridement Subcutaneous Subcutaneous -Tissue Removed Subcutaneous Subcutaneous -Post Debridement (cm) - Length 0.8 0.7 -Post Debridement (cm) - Width 1.7 0.7 -Post Debridement (cm) - Depth 0.2 0.2 -Total Square (Post) (cm) 1.36 0.49 -Area of Debridement (cm) - Length 0.8 0.7 -Area of Debridement (cm) - Width 1.7 0.7 -Total Square (Area) (cm) 1.36 0.49 -Tunneling No No -Undermining/Tunneling No No -Circular Undermining No No -Wound/Ulcer Outcome Not Healed Not Healed -Ulcer Cleansing Rinsed/ Rinsed/ Irrigated with Irrigated with Saline Saline -Foul Odor after Cleansing No No -Bioengineered Tissue No No -Bleeding Controlled with Pressure Pressure -Treatment Response Procedure Procedure Tolerated Well Tolerated Well -Offloading No No -Debridement - Subq, 1st 20sq cm Yes Yes Pain Scale: 0-10 Numeric Is Patient Pain Free? Yes Yes WC - Nurse 3 - General Ulcer D/C NN Start: 12/24/22 08:36 Freq: Status: Active Protocol: Activity Type Activity Date Activity User E-sign Co-sign Detail Recorded Client Recorded Date Recorded By Document 12/24/22 09:21 RB [id number] 12/24/22 09:22 RB Document 12/31/22 08:57 MW [id number] 12/31/22 08:58 MW 12/24/22 12/31/22 09:21 08:57 Wound Care Center Nurse 3 #3- L LAT PLANTAR FOOT -Ulcer Cleansing Rinsed/ Rinsed/ Irrigated with Irrigated with Saline Saline -Foul Odor after Cleansing No -Negative Pressure Wound Therapy N/A -Primary Dressing Applied Mepilex Border, Mepilex Border, Promogran Promogran Mimi Matter Mimi Matter -Mepilex Border 1 1 -Promogran Mimi Matter 1 1 Left -Tubular Bandage Double Layer -Size of Tubigrip Used Size D -Size D ($) 2 Treatment Response Procedure Procedure Tolerated Well Tolerated Well Pain Scale: 0-10 Numeric Is Patient Pain Free? Yes Yes Teaching: Wound Center Dressing Your Wound -Person Taught Patient -Teaching Method Discussion -Response to teaching Verbalize understanding WC - Visit Discharge Discharge Condition Stable Stable Ambulatory Status Ambulatory, Ambulatory Walker Transportation Private Auto Private Auto Accompanied by self Medication Reconcilliation completed & No No provided to patient/care provider Clinical Summary of Care Provided Yes Yes Notes: knewalker Assessment/Plan Assessment/Plan (1) Infected wound: CODE(S): T14.8XXA - Other injury of unspecified body region, initial enco unter; L08.9 - Local infection of the skin and subcutaneous tissue, unspecified (2) 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: CODE(S): E08.621 - Diabetes mellitus due to underlying condition with foot ulcer; L97.509 - Non-pressure chronic ulcer of other part of unspecified foot with unspecified severity QUALIFIERS: Diabetic foot ulcer location: toe Laterality: left Non-pressure ulcer stage: limited to breakdown of skin Qualified Code(s): E08.621 - Diabetes mellitus due to underlying condition with foot ulcer; L97.521 - Non-pressure chronic ulcer of other part of left foot limited to breakdown of skin PLAN: Wash foot with antibacterial soap such as Dial Apply Mimi to base of wound moistened cover with Adaptic and absorbent dressing daily Follow-up in 1 week (3) Mixed diabetic ulcer of foot: (4) Nonhealing nonsurgical wound: CODE(S): T14.8XXA - Other injury of unspecified body region, initial encounter
--- NOTE | 2023-01-08 16:43 | WC ---
tc from patient. [facility] inpatient pharmacy states they did not receive his atb order. mw rn called it in on voicemail on 01/06/21. this nurse called linezolid rx into pharmacy now, patient updated and aware.
[2023-01-14 08:33] VITALS: BP 132/62; PULSE 53; RESP 18; TEMP 36; BMI 28.7
--- NOTE | 2023-01-14 09:52 | PN.PCM_ITS ---
History of Present Illness Date of Service: 01/14/23 Chief Complaint: Follow-up DFU L lateral foot History of Wound: 47-year-old white male who has had history of this openings for greater than 6 months. He has been seeing Dr. Hooper for the last 6 months following up and has tried several initiatives but is never healed. He finally referred here to the wound center Patient has been using Promogran packed into wound base and moisten covered with absorbent dressing daily. Recently labs were drawn for a fever he has had of 103 and a red streak going up his foot which showed no elevated white count no shift. X-ray of the left foot shows no sign of pending the sensitivity. MRI shows an old fracture no osteomyelitis Was admitted to hospital and had IV antibiotics Sent home on Flagyl Progress of Wound: The wound measures smaller flatter looks actually good except he still has that lump which is causing like a deformity on the lateral aspect of his foot. He has appointment February 13 with orthopedics. He still following up with podiatry about the wound and foot. We will continue using the Promogran doing well on it. Podiatry wants him to use triple antibiotics I suggest we put Bactroban and then the Promogran over top padding it and offloading with a boot. Podiatry is also kept him 2 more weeks off his foot which is good. The cultures came back positive he did have a red streak on his foot so he is on antibiotics at this time he started them last Thursday, 09 January Measuring smaller and doing well. Subjective Subjective Patient is pleased with progress he like me to look at his boot which is needs new padding replaced I told him to go back to podiatry and see if they will since they made it they should read placed all those inserts. Objective Data Objective Data No sign of infection measurements are smaller on an antibiotic just needs to get reinserts on his boot. Continue offloading and follow-up in 1 weeks Vital Signs: Vital Signs Temp Pulse Resp BP 96.8 F L 53 L 18 132/62 H 01/14/23 08:33 01/14/23 08:33 01/14/23 08:33 01/14/23 08:33 Weight: 242 lb Body Mass Index (BMI) 28.7 Lab / Micro Data Attestation: I reviewed the patient's lab results. Micro: Microbiology 12/31/22 09:00 Wound - Left Foot Gram Stain - Final 12/31/22 09:00 Wound - Left Foot Wound Culture - Final Staphylococcus epidermidis 12/31/22 09:00 Wound - Left Foot Anaerobic Culture - Final No anaerobic bacteria isolated. Physical Exam Const oriented x3 General Appearance: cooperative Exam Limitations: no limitations HEENT normocephalic Eyes General Eye: normal appearance of both eyes Resp normal respiratory effort Effort and Inspection: able to speak in complete sentences Auscultation: clear to auscultation bilaterally Cardio regular rate and regular rhythm Palpation: normal PMI Rate: regular rate Rhythm: regular rhythm Extremity Negative for normal to inspection Extremity Narrative: Left foot slight deformity at the fifth metatarsal from a previous fracture. Open wound on plantar side of foot. With it going up the side of the foot has a superficial area. Skin no rashes or lesions noted Skin Narrative: Does have a red streak going up his left lateral foot pending his culture results Open wound on plantar side of foot General Skin Exam: dry skin and erythema Lesions: no lesions Psych Appearance: grossly normal Speech: normal speech Thought Content: normal thought content Judgement: judgement good Debridement Note Debridement Note Wound debrided: Left foot DFU Laterality: Left Wound Grade/Stage: Stage III Type of Debridement: Excisional debridement Anesthesia Used: 5% Lidocaine Gel Depth: Down to and including healthy tissue and in the subcutaneous layer Percentage of wound debrided: 100 Instrument Used: 5mm curette Tissue Removed: Devitalized tissue and fibrin Severity: Fat Layer Exposed Amount of bleeding with debridement: Mild Bleeding Controlled with: Compression and gauze Patient tolerated procedure: Patient tolerated procedure well Post-Debridement Measurements and Additional Note: Post-Debridement Measurements/Treatment - Nurse 1 - General Ulcer Assessment Start: 12/24/22 08:36 Freq: Status: Active Protocol: MONI Activity Type Activity Date Activity User E-sign Co-sign Detail Recorded Client Recorded Date Recorded By Document 12/24/22 08:36 RB [id number] 12/24/22 08:38 RB Document 12/31/22 08:44 RB [id number] 12/31/22 08:46 RB Document 01/14/23 08:33 RB Desktop 01/14/23 08:35 RB 12/24/22 12/31/22 01/14/23 08:36 08:44 08:33 - Today's Visit Information Type of service Follow-up Visit Follow-up Visit Follow-up Visit (Physician/AGRICULTURAL APPRAISER (Physician/AGRICULTURAL APPRAISER (Physician/AGRICULTURAL APPRAISER ) ) ) Arrival Mode Ambulatory Ambulatory Ambulatory Transfer Assistance None None None Patient Identification Verified (Name & Yes Yes Yes ) Patient Requires Transmission-Based No No No Precautions Height and Weight Body Mass Index (BMI) 28.7 28.7 28.7 BMI Classification Overweight Overweight Overweight Vital Signs Temperature (97.8 F-99.1 F) 98 F 95.7 F L 96.8 F L Temperature Source Temporal Temporal Temporal Pulse Rate (60-100) 58 L 82 53 L Pulse Location Monitor Monitor Monitor Respiratory Rate (12-18) 18 18 18 Respiratory rate source Observation Observation Observation Blood Pressure (90/60-120/80) 147/90 H 134/76 H 132/62 H Blood Pressure Mean (mm Hg) 109 95 85 Source Monitor Monitor Monitor Position Semi-Fowlers Semi-Fowlers Semi-Fowlers Blood Pressure Location Left Arm Left Arm Left Arm History Since Last Visit- (Skip if this is Patient's initial visit) Have you changed medications since your No No No last visit? Any new allergies or adverse reactions No No No Had a fall/change in ADL's that may No No No increase risk of falls Signs or symptoms of abuse and/or No No No neglect since last visit Have you been in the hospital since your No No No last visit? Has dressing in place as prescribed Yes Yes Yes Has compression in place as prescribed Yes No Yes Has offloadiing in place as prescribed Yes Yes Yes Experienced any changes in pain level or No No No management Pain Scale: 0-10 Numeric Is Patient Pain Free? Yes Yes Yes - Nurse 1 - General Ulcer Measurement Start: 12/24/22 08:36 Freq: Status: Active Protocol: Activity Type Activity Date Activity User E-sign Co-sign Detail Recorded Client Recorded Date Recorded By Document 12/24/22 08:36 RB [id number] 12/24/22 08:38 RB Document 12/31/22 08:44 RB [id number] 12/31/22 08:46 RB Document 01/14/23 08:33 RB Desktop 01/14/23 08:35 RB 12/24/22 12/31/22 01/14/23 08:36 08:44 08:33 Wound Center Nurse 1 #3- L LAT PLANTAR FOOT -Combined with other wound No No No -Current Size (cm) - Length 0.6 0.7 0.4 -Current Size (cm) - Width 0.7 0.7 0.5 -Current Size (cm) - Depth 0.2 0.2 0.2 -Total Square Cm 0.42 0.49 0.20 -Photo Taken Yes Yes Yes -Tunneling No No No -Undermining/Tunneling No No No -Circular Undermining No No No -Exudate Amt Medium Medium Large -Exudate Type Serosanguineous Serosanguineous Serosanguineous -Wound Margin Distinct, Thickened Thickened Outline Attached -Granulation Amt Medium (34-66%) Medium (34-66%) Medium (34-66%) -Granulation Quality [place] -Slough/Fibrin Yes Yes Yes -Necrosis Amt Medium (34-66%) Medium (34-66%) Medium (34-66%) -Necrotic Tissue Type Adherent Slough Adherent Slough Adherent Slough -Structure Exposed N/A N/A N/A -Texture (Mariama-wound Skin Appearance) Assessed Callus Callus -Moisture (Mariama-wound Skin Appearance) Assessed Assessed Assessed -Color (Mariama-wound Skin Appearance) Assessed Assessed Assessed -Temperature (Mariama-wound Skin No Abnormality No Abnormality No Abnormality Appearance) (Pt Warm) (Pt Warm) (Pt Warm) -Tenderness on Palpation (Mariama-wound No No No Skin Appearance) -Ulcer Cleansing Wound Cleanser Wound Cleanser Wound Cleanser -Foul Odor after Cleansing No No No -Anesthetic Used 5% Lidocaine 5% Lidocaine 5% Lidocaine Gel Gel Gel Lower Limb Edema Present Yes Left Calf (cm) 41 Left Ankle (cm) 22.5 WC - Nurse 2 - General Ulcer CM Notes Start: 12/24/22 08:36 Freq: Status: Active Protocol: Activity Type Activity Date Activity User E-sign Co-sign Detail Recorded Client Recorded Date Recorded By Document 12/24/22 08:55 MW [id number] 12/24/22 08:56 MW Document 12/31/22 08:49 MW [id number] 12/31/22 08:54 MW Document 01/14/23 09:00 MW Desktop 01/14/23 09:06 MW 12/24/22 12/31/22 01/14/23 08:55 08:49 09:00 Wound Center Nurse 2 #3- L LAT PLANTAR FOOT -Time 08:55 08:49 09:01 -Correct Patient Yes Yes Yes -Correct Side, Site, Position Yes Yes Yes -Correct Procedure Yes Yes Yes -Procedure Performed Yes Yes Yes -Type of Procedure Debridement Debridement Debridement -Clinical Debridement Subcutaneous Subcutaneous Subcutaneous -Tissue Removed Subcutaneous Subcutaneous Subcutaneous -Post Debridement (cm) - Length 0.8 0.7 0.4 -Post Debridement (cm) - Width 1.7 0.7 0.7 -Post Debridement (cm) - Depth 0.2 0.2 0.2 -Total Square (Post) (cm) 1.36 0.49 0.28 -Area of Debridement (cm) - Length 0.8 0.7 0.4 -Area of Debridement (cm) - Width 1.7 0.7 0.7 -Total Square (Area) (cm) 1.36 0.49 0.28 -Tunneling No No No -Undermining/Tunneling No No No -Circular Undermining No No No -Wound/Ulcer Outcome Not Healed Not Healed Not Healed -Ulcer Cleansing Rinsed/ Rinsed/ Rinsed/ Irrigated with Irrigated with Irrigated with Saline Saline Saline -Foul Odor after Cleansing No No No -Bioengineered Tissue No No No -Bleeding Controlled with Pressure Pressure -Treatment Response Procedure Procedure Procedure Tolerated Well Tolerated Well Tolerated Well -Offloading No No Yes -Type of Offloading Knee Walker -Debridement - Subq, 1st 20sq cm Yes Yes Yes Pain Scale: 0-10 Numeric Is Patient Pain Free? Yes Yes Yes WC - Nurse 3 - General Ulcer D/C NN Start: 12/24/22 08:36 Freq: Status: Active Protocol: Activity Type Activity Date Activity User E-sign Co-sign Detail Recorded Client Recorded Date Recorded By Document 12/24/22 09:21 RB [id number] 12/24/22 09:22 RB Document 12/31/22 08:57 MW [id number] 12/31/22 08:58 MW Document 01/14/23 09:29 RB Desktop 01/14/23 09:30 RB 12/24/22 12/31/22 01/14/23 09:21 08:57 09:29 Wound Care Center Nurse 3 #3- L LAT PLANTAR FOOT -Ulcer Cleansing Rinsed/ Rinsed/ Irrigated with Irrigated with Saline Saline -Foul Odor after Cleansing No -Negative Pressure Wound Therapy N/A -Primary Dressing Applied Mepilex Border, Mepilex Border, Mepilex Border, Promogran Promogran Promogran Mimi Matter Mimi Matter Mimi Matter -Other Dressing bactroban -Mepilex Border 1 1 1 -Promogran Mimi Matter 1 1 1 Left -Tubular Bandage Double Layer Double Layer -Size of Tubigrip Used Size D Size D -Size D ($) 2 2 Treatment Response Procedure Procedure Procedure Tolerated Well Tolerated Well Tolerated Well Pain Scale: 0-10 Numeric Is Patient Pain Free? Yes Yes Yes Teaching: Wound Center Dressing Your Wound -Person Taught Patient Patient -Teaching Method Discussion Discussion, Demonstration -Response to teaching Verbalize Verbalize understanding understanding WC - Visit Discharge Discharge Condition Stable Stable Stable Ambulatory Status Ambulatory, Ambulatory Ambulatory Walker Transportation Private Auto Private Auto Private Auto Accompanied by self Medication Reconcilliation completed & No No No provided to patient/care provider Clinical Summary of Care Provided Yes Yes Yes Notes: jovany lemus Assessment/Plan Assessment/Plan (1) Infected wound: CODE(S): T14.8XXA - Other injury of unspecified body region, initial encounter; L08.9 - Local infection of the skin and subcutaneous tissue, unspecified (2) 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: CODE(S): E08.621 - Diabetes mellitus due to underlying condition with foot ulcer; L97.509 - Non-pressure chronic ulcer of other part of unspecified foot with unspecified severity QUALIFIERS: Diabetic foot ulcer location: toe Laterality: left Non-pressure ulcer stage: limited to breakdown of skin Qualified Code(s): E08.621 - Diabetes mellitus due to underlying condition with foot ulcer; L97.521 - Non-pressure chronic ulcer of other part of left foot limited to breakdown of skin PLAN: Wash foot with antibacterial soap such as Dial Apply Bactroban then Promogran to base of wound moistened cover with absorbent dressing daily Follow-up in 1 week Continue to offload and get new inserts and boot (3) Mixed diabetic ulcer of foot: (4) Nonhealing nonsurgical wound: CODE(S): T14.8XXA - Other injury of unspecified body region, initial encounter
== END 2023-01-17 23:59 | disposition home or self-care (01) ==
LOC: WC 08:30
PROVIDERS: PCP Family Medicine; Referring Provider Nurse Practitioner; Visit Provider Nurse Practitioner
DX: E11.621 Type 2 diabetes mellitus with foot ulcer (principal); L97.521 Non-pressure chronic ulcer of other part of left foot limited to breakdown of skin; L08.9 Local infection of the skin and subcutaneous tissue, unspecified; T14.8XXA Other injury of unspecified body region, initial encounter
CPT/HCPCS: 11042; 87070; 87075; 87077; 87186; 87205

== ENCOUNTER 2023-01-28 08:25 | Outpatient (RCR) | payer OTHER, SELFPAY ==
[2023-01-18 00:18] VITALS: BP 132/62; PULSE 53; RESP 18; TEMP 36; BMI 28.7
[2023-01-28 08:31] VITALS: BP 174/70; PULSE 59; RESP 16; TEMP 36.2; BMI 28.7
--- NOTE | 2023-01-28 08:58 | PN.PCM_ITS ---
History of Present Illness Date of Service: 01/28/23 Chief Complaint: Follow-up DFU L lateral foot History of Wound: 47-year-old white male who has had history of this openings for greater than 6 months. He has been seeing Dr. Hooper for the last 6 months following up and has tried several initiatives but is never healed. He finally referred here to the wound center Patient has been using Promogran packed into wound base and moisten covered with absorbent dressing daily. Recently labs were drawn for a fever he has had of 103 and a red streak going up his foot which showed no elevated white count no shift. X-ray of the left foot shows no sign of pending the sensitivity. MRI shows an old fracture no osteomyelitis Was admitted to hospital and had IV antibiotics Sent home on Flagyl Progress of Wound: It has been 2 weeks since last visit. Patient is seen by podiatry who is put him in like a partial casting last week. Which made the wound shows some improvement it is smaller. He is back to his boot which he had better foaming for and off his leg with a knee immobilizer. Patient is to continue using the Mimi and Bactroban seems to be working well for him and he can follow-up in 3 weeks Subjective Subjective Patient is pleased with outcomes Objective Data Objective Data Measurements are smaller still gets a callus around the edges that I debrided off and shaved down wound itself is smaller measurements Vital Signs: Vital Signs Temp Pulse Resp BP O2 Del Method 97.1 F L 59 L 16 174/70 H Room Air 01/28/23 08:31 01/28/23 08:31 01/28/23 08:31 01/28/23 08:31 01/28/23 08:31 Oxygen Delivery Method Room Air Weight: 242 lb Body Mass Index (BMI) 28.7 Physical Exam Const oriented x3 General Appearance: cooperative Exam Limitations: no limitations HEENT normocephalic Eyes General Eye: normal appearance of both eyes Resp normal respiratory effort Effort and Inspection: able to speak in complete sentences Auscultation: clear to auscultation bilaterally Cardio regular rate and regular rhythm Palpation: normal PMI Rate: regular rate Rhythm: regular rhythm Extremity Negative for normal to inspection Extremity Narrative: Left foot slight deformity at the fifth metatarsal from a previous fracture. Open wound on plantar side of foot. With it going up the side of the foot has a superficial area. Skin no rashes or lesions noted Skin Narrative: Does have a red streak going up his left lateral foot pending his culture results Open wound on plantar side of foot General Skin Exam: dry skin and erythema Lesions: no lesions Psych Appearance: grossly normal Speech: normal speech Thought Content: normal thought content Judgement: judgement good Debridement Note Debridement Note Wound debrided: Left plantar foot DFU Wound Grade/Stage: Stage II Type of Debridement: Excisional debridement Anesthesia Used: 5% Lidocaine Gel Depth: in the subcutaneous layer Percentage of wound debrided: 100 Instrument Used: 5mm curette Tissue Removed: Callus and fibrin Severity: Fat Layer Exposed Amount of bleeding with debridement: Mild Bleeding Controlled with: Compression and gauze Patient tolerated procedure: Patient tolerated procedure well Post-Debridement Measurements and Additional Note: Post-Debridement Measurements/Treatment - Nurse 1 - General Ulcer Assessment Start: 01/28/23 08:31 Freq: Status: Active Protocol: [email or web address] Activity Type Activity Date Activity User E-sign Co-sign Detail Recorded Client Recorded Date Recorded By Document 01/28/23 08:31 [facility] Desktop 01/28/23 08:35 [facility] 01/28/23 08:31 - Today's Visit Information Type of service Follow-up Visit (Physician/VULNERABILITY ASSESSMENT ANALYST ) Arrival Mode Ambulatory, Walker Arrival Mode (Other) knee walker Transfer Assistance None Patient Identification Verified (Name & Yes ) Patient Requires Transmission-Based No Precautions Height and Weight Body Mass Index (BMI) 28.7 BMI Classification Overweight Vital Signs Temperature (97.8 F-99.1 F) 97.1 F L Temperature Source Temporal Pulse Rate (60-100) 59 L Pulse Location Monitor Respiratory Rate (12-18) 16 Respiratory rate source Observation Oxygen Delivery Method Room Air Blood Pressure (90/60-120/80) 174/70 H Blood Pressure Mean (mm Hg) 104 Source Monitor Position Sitting Blood Pressure Location Left Arm History Since Last Visit- (Skip if this is Patient's initial visit) Have you changed medications since your No last visit? Any new allergies or adverse reactions No Had a fall/change in ADL's that may No increase risk of falls Signs or symptoms of abuse and/or No neglect since last visit Have you been in the hospital since your No last visit? Has dressing in place as prescribed Yes Has compression in place as prescribed N/A Has offloadiing in place as prescribed Yes Experienced any changes in pain level or No management Left Footwear Removable Cast Walker/Walking Boot Right Footwear Regular Shoe Pain Scale: 0-10 Numeric Is Patient Pain Free? Yes - Nurse 1 - General Ulcer Measurement Start: 01/28/23 08:31 Freq: Status: Active Protocol: Activity Type Activity Date Activity User E-sign Co-sign Detail Recorded Client Recorded Date Recorded By Document 01/28/23 08:31 [facility] Desktop 01/28/23 08:35 [facility] 01/28/23 08:31 Wound Center Nurse 1 #3- L LAT PLANTAR FOOT -Combined with other wound No -Current Size (cm) - Length 0.4 -Current Size (cm) - Width 1 -Current Size (cm) - Depth 0.1 -Total Square Cm 0.4 -Epithelialization Medium 34-66% -Tunneling No -Undermining/Tunneling No -Circular Undermining No -Exudate Amt Small -Exudate Type Serosanguineous -Wound Margin Distinct, Outline Attached -Granulation Amt Large (67-100%) -Granulation Quality Red -Slough/Fibrin No -Necrosis Amt None Present (0 %) -Texture (Mariama-wound Skin Appearance) Assessed, Scarring -Moisture (Mariama-wound Skin Appearance) Assessed -Color (Mariama-wound Skin Appearance) Assessed -Temperature (Mariama-wound Skin No Abnormality Appearance) (Pt Warm) -Tenderness on Palpation (Mariama-wound No Skin Appearance) -Ulcer Cleansing Rinsed/ Irrigated with Saline -Foul Odor after Cleansing No -Anesthetic Used 5% Lidocaine Gel - Nurse 2 - General Ulcer CM Notes Start: 01/28/23 08:31 Freq: Status: Active Protocol: Activity Type Activity Date Activity User E-sign Co-sign Detail Recorded Client Recorded Date Recorded By Document 01/28/23 08:46 [facility] Desktop 01/28/23 08:49 [facility] 01/28/23 08:46 Wound Center Nurse 2 -Time 08:47 -Correct Patient Yes -Correct Side, Site, Position Yes -Correct Procedure Yes -Procedure Performed Yes -Type of Procedure Debridement -Clinical Debridement Subcutaneous -Tissue Removed Subcutaneous -Post Debridement (cm) - Length 0.3 -Post Debridement (cm) - Width 0.5 -Post Debridement (cm) - Depth 0.2 -Total Square (Post) (cm) 0.15 -Area of Debridement (cm) - Length 0.3 -Area of Debridement (cm) - Width 0.5 -Total Square (Area) (cm) 0.15 -Tunneling No -Undermining/Tunneling No -Circular Undermining No -Wound/Ulcer Outcome Not Healed -Ulcer Cleansing Rinsed/ Irrigated with Saline -Foul Odor after Cleansing No -Bioengineered Tissue No -Bleeding Controlled with Pressure -Treatment Response Procedure Tolerated Well -Offloading No -Debridement - Subq, 1st 20sq cm Yes Pain Scale: 0-10 Numeric Is Patient Pain Free? Yes WC - Nurse 3 - General Ulcer D/C NN Start: 01/28/23 08:31 Freq: Status: Active Protocol: Activity Type Activity Date Activity User E-sign Co-sign Detail Recorded Client Recorded Date Recorded By Document 01/28/23 08:50 [facility] Desktop 01/28/23 08:51 [facility] 01/28/23 08:50 Wound Care Center Nurse 3 #3- L LAT PLANTAR FOOT -Ulcer Cleansing Rinsed/ Irrigated with Saline -Foul Odor after Cleansing No -Negative Pressure Wound Therapy N/A -Primary Dressing Applied Mepilex Border, Promogran Mimi Matter -Mepilex Border 1 -Promogran Mimi Matter 1 Treatment Response Procedure Tolerated Well Pain Scale: 0-10 Numeric Is Patient Pain Free? Yes Teaching: Wound Center Dressing Your Wound -Person Taught Patient -Teaching Method Discussion -Response to teaching Verbalize understanding WC - Visit Discharge Discharge Condition Stable Ambulatory Status Ambulatory Transportation Private Auto Accompanied by self Medication Reconcilliation completed & No provided to patient/care provider Clinical Summary of Care Provided Yes Notes: knee walker Assessment/Plan Assessment/Plan (1) Infected wound: CODE(S): T14.8XXA - Other injury of unspecified body region, initial encounter; L08.9 - Local infection of the skin and subcutaneous tissue, unspecified (2) 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: CODE(S): E08.621 - Diabetes mellitus due to underlying condition with foot ulcer; L97.509 - Non-pressure chronic ulcer of other part of unspecified foot with unspecified severity QUALIFIERS: Diabetic foot ulcer location: toe Laterality: left Non-pressure ulcer stage: limited to breakdown of skin Qualified Code(s): E08.621 - Diabetes mellitus due to underlying condition with foot ulcer; L97.521 - Non-pressure chronic ulcer of other part of left foot limited to breakdown of skin PLAN: Wash foot with antibacterial soap such as Dial Apply Bactroban then Promogran to base of wound moistened cover with absorbent dressing daily Follow-up in 3 week Continue to offload with new inserts and boot (3) Mixed diabetic ulcer of foot: (4) Nonhealing nonsurgical wound: CODE(S): T14.8XXA - Other injury of unspecified body region, initial encounter
== END 2023-02-17 23:59 | disposition home or self-care (01) ==
LOC: WC 08:25
PROVIDERS: PCP Family Medicine; Referring Provider Nurse Practitioner; Visit Provider Nurse Practitioner
DX: T14.8XXA Other injury of unspecified body region, initial encounter (principal); E08.621 Diabetes mellitus due to underlying condition with foot ulcer; L97.521 Non-pressure chronic ulcer of other part of left foot limited to breakdown of skin; L08.9 Local infection of the skin and subcutaneous tissue, unspecified
CPT/HCPCS: 11042

== ENCOUNTER 2023-03-11 08:30 | Outpatient (RCR) | payer OTHER, SELFPAY ==
[2023-02-18 00:14] VITALS: BP 174/70; PULSE 59; RESP 16; TEMP 36.2; BMI 28.7
[2023-02-18 08:29] VITALS: BP 157/64; PULSE 55; RESP 16; TEMP 36.2; BMI 28.7
--- NOTE | 2023-02-18 11:37 | PCM.WC.PN ---
History of Present Illness Date of Service: 02/18/23 Chief Complaint: Follow-up DFU L lateral foot History of Wound: 47-year-old white male who has had history of this openings for greater than 6 months. He has been seeing Dr. Hooper for the last 6 months following up and has tried several initiatives but is never healed. He finally referred here to the wound center Patient has been using Promogran packed into wound base and moisten covered with absorbent dressing daily. Recently labs were drawn for a fever he has had of 103 and a red streak going up his foot which showed no elevated white count no shift. X-ray of the left foot shows no sign of pending the sensitivity. MRI shows an old fracture no osteomyelitis Was admitted to hospital and had IV antibiotics Sent home on Flagyl Progress of Wound: Have not seen for 2 weeks, progressed very well down to smaller wound shallow getting skin over top side of his foot looks very good no more erythema or swelling noted Patient is still following up with podiatry Subjective Subjective Patient is happy with outcomes Objective Data Objective Data We will continue using the Bactroban and Mimi seems to be closing it well and follow-up in 2 more weeks Vital Signs: Vital Signs Temp Pulse Resp BP O2 Del Method 97.1 F L 55 L 16 157/64 H Room Air 02/18/23 08:29 02/18/23 08:29 02/18/23 08:29 02/18/23 08:29 02/18/23 08:29 Oxygen Delivery Method Room Air Weight: 242 lb Body Mass Index (BMI) 28.7 Lab / Micro Data Attestation: I reviewed the patient's lab results. Physical Exam Const oriented x3 General Appearance: cooperative Exam Limitations: no limitations HEENT normocephalic Eyes General Eye: normal appearance of both eyes Resp normal respiratory effort Effort and Inspection: able to speak in complete sentences Auscultation: clear to auscultation bilaterally Cardio regular rate and regular rhythm Palpation: normal PMI Rate: regular rate Rhythm: regular rhythm Extremity Negative for normal to inspection Extremity Narrative: Left foot slight deformity at the fifth metatarsal from a previous fracture. Open wound on plantar side of foot. With it going up the side of the foot has a superficial area. Skin no rashes or lesions noted Skin Narrative: Does have a red streak going up his left lateral foot pending his culture results Open wound on plantar side of foot General Skin Exam: dry skin and erythema Lesions: no lesions Psych Appearance: grossly normal Speech: normal speech Thought Content: normal thought content Judgement: judgement good Debridement Note Debridement Note Wound debrided: Left plantar foot Wound Grade/Stage: DFU stage II Type of Debridement: Excisional debridement Anesthesia Used: 5% Lidocaine Gel Depth: Down to and including healthy tissue Percentage of wound debrided: 100 Instrument Used: 7mm curette Tissue Removed: Callus fibrin Severity: Limited To Skin Breakdown Amount of bleeding with debridement: None Bleeding Controlled with: Pressure Patient tolerated procedure: Patient tolerated procedure well Post-Debridement Measurements and Additional Note: Post-Debridement Measurements/Treatment - Nurse 1 - General Ulcer Assessment Start: 02/18/23 08:29 Freq: Status: Active Protocol: MONI Activity Type Activity Date Activity User E-sign Co-sign Detail Recorded Client Recorded Date Recorded By Document 02/18/23 08:29 [facility] Desktop 02/18/23 08:34 [facility] 02/18/23 08:29 - Today's Visit Information Type of service Follow-up Visit (Physician/STRUCTURAL TECHNICIAN ) Arrival Mode Ambulatory, Walker Arrival Mode (Other) knee walker Transfer Assistance None Patient Identification Verified (Name & Yes ) Patient Requires Transmission-Based No Precautions Height and Weight Body Mass Index (BMI) 28.7 BMI Classification Overweight Vital Signs Temperature (97.8 F-99.1 F) 97.1 F L Temperature Source Temporal Pulse Rate (60-100) 55 L Pulse Location Monitor Respiratory Rate (12-18) 16 Respiratory rate source Observation Oxygen Delivery Method Room Air Blood Pressure (90/60-120/80) 157/64 H Blood Pressure Mean (mm Hg) 95 Source Monitor Position Sitting Blood Pressure Location Left Arm History Since Last Visit- (Skip if this is Patient's initial visit) Have you changed medications since your No last visit? Any new allergies or adverse reactions No Had a fall/change in ADL's that may No increase risk of falls Signs or symptoms of abuse and/or No neglect since last visit Have you been in the hospital since your No last visit? Has dressing in place as prescribed Yes Has compression in place as prescribed N/A Has offloadiing in place as prescribed Yes Experienced any changes in pain level or No management Left Footwear Removable Cast Walker/Walking Boot Right Footwear Regular Shoe Pain Scale: 0-10 Numeric Is Patient Pain Free? Yes WC - Nurse 1 - General Ulcer Measurement Start: 02/18/23 08:29 Freq: Status: Active Protocol: Activity Type Activity Date Activity User E-sign Co-sign Detail Recorded Client Recorded Date Recorded By Document 02/18/23 08:29 [facility] Desktop 02/18/23 08:34 [facility] 02/18/23 08:29 Wound Center Nurse 1 #3- L LAT PLANTAR FOOT -Combined with other wound No -Current Size (cm) - Length 0.5 -Current Size (cm) - Width 0.6 -Current Size (cm) - Depth 0.1 -Total Square Cm 0.30 -Date of Last Picture (Recall this 02/18/23 field) -Photo Taken Yes -Epithelialization Small 1-33% -Tunneling No -Undermining/Tunneling No -Circular Undermining No -Exudate Amt Medium -Exudate Type Serosanguineous -Wound Margin Distinct, Outline Attached -Granulation Amt Large (67-100%) -Granulation Quality Red -Slough/Fibrin No -Necrosis Amt None Present (0 %) -Texture (Mariama-wound Skin Appearance) Assessed,Callus ,Scarring -Moisture (Mariama-wound Skin Appearance) Assessed, Maceration -Color (Mariama-wound Skin Appearance) Assessed -Temperature (Mariama-wound Skin No Abnormality Appearance) (Pt Warm) -Tenderness on Palpation (Mariama-wound No Skin Appearance) -Ulcer Cleansing Rinsed/ Irrigated with Saline -Foul Odor after Cleansing No -Anesthetic Used 5% Lidocaine Gel Lower Limb Edema Present Yes Left Calf (cm) 41 Left Ankle (cm) 23.8 WC - Nurse 2 - General Ulcer CM Notes Start: 02/18/23 08:29 Freq: Status: Active Protocol: Activity Type Activity Date Activity User E-sign Co-sign Detail Recorded Client Recorded Date Recorded By Document 02/18/23 08:40 [facility] Desktop 02/18/23 08:41 [facility] 02/18/23 08:40 Wound Center Nurse 2 #3- L LAT PLANTAR FOOT -Time 08:40 -Correct Patient Yes -Correct Side, Site, Position Yes -Correct Procedure Yes -Procedure Performed Yes -Type of Procedure Debridement -Clinical Debridement Subcutaneous -Tissue Removed Subcutaneous -Post Debridement (cm) - Length 0.4 -Post Debridement (cm) - Width 0.6 -Post Debridement (cm) - Depth 0.1 -Total Square (Post) (cm) 0.24 -Area of Debridement (cm) - Length 0.4 -Area of Debridement (cm) - Width 0.6 -Total Square (Area) (cm) 0.24 -Tunneling No -Undermining/Tunneling No -Circular Undermining No -Wound/Ulcer Outcome Not Healed -Ulcer Cleansing Rinsed/ Irrigated with Saline -Foul Odor after Cleansing No -Bioengineered Tissue No -Bleeding Controlled with Pressure -Treatment Response Procedure Tolerated Well -Offloading No -Debridement - Subq, 1st 20sq cm Yes Pain Scale: 0-10 Numeric Is Patient Pain Free? Yes - Nurse 3 - General Ulcer D/C NN Start: 02/18/23 08:29 Freq: Status: Active Protocol: Activity Type Activity Date Activity User E-sign Co-sign Detail Recorded Client Recorded Date Recorded By Document 02/18/23 08:47 Desktop 02/18/23 08:49 02/18/23 08:47 Wound Care Center Nurse 3 #3- L LAT PLANTAR FOOT -Ulcer Cleansing Not Cleansed -Foul Odor after Cleansing No -Primary Dressing Applied Mepilex Border, Promogran Mimi Matter -Mepilex Border 1 -Promogran Mimi Matter 1 Left -Lotion applied to leg before No compression wrap -Tubular Bandage Double Layer -Size of Tubigrip Used Size D -Size D ($) 2 Pain Scale: 0-10 Numeric Is Patient Pain Free? 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: CODE(S): E08.621 - Diabetes mellitus due to underlying condition with foot ulcer; L97.509 - Non-pressure chronic ulcer of other part of unspecified foot with unspecified severity QUALIFIERS: Diabetic foot ulcer location: toe Laterality: left Non-pressure ulcer stage: limited to breakdown of skin Qualified Code(s): E08.621 - Diabetes mellitus due to underlying condition with foot ulcer; L97.521 - Non-pressure chronic ulcer of other part of left foot limited to breakdown of skin PLAN: Wash foot with antibacterial soap such as Dial Apply Bactroban then Promogran to base of wound moistened cover with absorbent dressing daily Follow-up in 2 week Continue to offload with new inserts and boot (3) Mixed diabetic ulcer of foot: (4) Nonhealing nonsurgical wound: CODE(S): T14.8XXA - Other injury of unspecified body region, initial encounter
[2023-03-04 08:36] VITALS: BP 158/75; PULSE 56; RESP 18; TEMP 36; BMI 28.7
--- NOTE | 2023-03-04 11:49 | PCM.WC.PN ---
History of Present Illness Date of Service: 03/04/23 Chief Complaint: Follow-up DFU L lateral foot History of Wound: 47-year-old white male who has had history of this openings for greater than 6 months. He has been seeing Dr. Hooper for the last 6 months following up and has tried several initiatives but is never healed. He finally referred here to the wound center Patient has been using Promogran packed into wound base and moisten covered with absorbent dressing daily. Recently labs were drawn for a fever he has had of 103 and a red streak going up his foot which showed no elevated white count no shift. X-ray of the left foot shows no sign of pending the sensitivity. MRI shows an old fracture no osteomyelitis Was admitted to hospital and had IV antibiotics Sent home on Flagyl Progress of Wound: Have not seen for 2 weeks, progressed very well down to smaller wound shallow getting skin over top side of his foot looks very good no more erythema or swelling noted Patient is still following up with podiatry saw him yesterday and he would like to do a graft but it is really too small. We will continue with the Promogran and stop using the Bactroban Subjective Subjective Patient agreeable to plan Objective Data Objective Data The wound looks clean there is a callus edge around from moisture I will try to take that off with nippers and we will stop using the Bactroban that could be the cause. He still using the knee immobilizer which is good he offloads well Measurements are smaller than what they were 2 weeks ago. Vital Signs: Vital Signs Temp Pulse Resp BP O2 Del Method 96.8 F L 56 L 18 158/75 H Room Air 03/04/23 08:36 03/04/23 08:36 03/04/23 08:36 03/04/23 08:36 03/04/23 08:36 Oxygen Delivery Method Room Air Weight: 242 lb Body Mass Index (BMI) 28.7 Lab / Micro Data Attestation: I reviewed the patient's lab results. Physical Exam Const oriented x3 General Appearance: cooperative Exam Limitations: no limitations HEENT normocephalic Eyes General Eye: normal appearance of both eyes Resp normal respiratory effort Effort and Inspection: able to speak in complete sentences Auscultation: clear to auscultation bilaterally Cardio regular rate and regular rhythm Palpation: normal PMI Rate: regular rate Rhythm: regular rhythm Extremity Negative for normal to inspection Extremity Narrative: Left foot slight deformity at the fifth metatarsal from a previous fracture. Open wound on plantar side of foot. With it going up the side of the foot has a superficial area. Skin no rashes or lesions noted Skin Narrative: Does have a red streak going up his left lateral foot pending his culture results Open wound on plantar side of foot General Skin Exam: dry skin and erythema Lesions: no lesions Psych Appearance: grossly normal Speech: normal speech Thought Content: normal thought content Judgement: judgement good Debridement Note Debridement Note Wound debrided: Left plantar foot decubitus ulcer Laterality: Left Wound Grade/Stage: Stage II Type of Debridement: Excisional debridement Anesthesia Used: 5% Lidocaine Gel Depth: Down to and including healthy tissue Percentage of wound debrided: 100 Instrument Used: 7mm curette and - (Nippers) Tissue Removed: Callus fibrin Severity: Limited To Skin Breakdown Amount of bleeding with debridement: Mild Bleeding Controlled with: Compression and gauze Patient tolerated procedure: Patient tolerated procedure well Post-Debridement Measurements and Additional Note: Post-Debridement Measurements/Treatment - Nurse 1 - General Ulcer Assessment Start: 02/18/23 08:29 Freq: Status: Active Protocol: .LOWEXMarcus Activity Type Activity Date Activity User E-sign Co-sign Detail Recorded Client Recorded Date Recorded By Document 02/18/23 08:29 [facility] Desktop 02/18/23 08:34 [facility] Document 03/04/23 08:36 [employer] Desktop 03/04/23 08:43 KW 02/18/23 03/04/23 08:29 08:36 - Today's Visit Information Type of service Follow-up Visit Follow-up Visit (Physician/HOGSHEAD STRIPPER (Physician/HOGSHEAD STRIPPER ) ) Arrival Mode Ambulatory, Ambulatory, Walker Other Arrival Mode (Other) knee walker knee scooter Transfer Assistance None Patient Identification Verified (Name & Yes Yes ) Patient Requires Transmission-Based No Precautions Height and Weight Body Mass Index (BMI) 28.7 28.7 BMI Classification Overweight Overweight Vital Signs Temperature (97.8 F-99.1 F) 97.1 F L 96.8 F L Temperature Source Temporal Temporal Pulse Rate (60-100) 55 L 56 L Pulse Location Monitor Monitor Respiratory Rate (12-18) 16 18 Respiratory rate source Observation Observation Oxygen Delivery Method Room Air Room Air Blood Pressure (90/60-120/80) 157/64 H 158/75 H Blood Pressure Mean (mm Hg) 95 102 Source Monitor Monitor Position Sitting Semi-Fowlers Blood Pressure Location Left Arm Left Arm History Since Last Visit- (Skip if this is Patient's initial visit) Have you changed medications since your No Yes last visit? Any new allergies or adverse reactions No No Had a fall/change in ADL's that may No No increase risk of falls Signs or symptoms of abuse and/or No No neglect since last visit Have you been in the hospital since your No No last visit? Has dressing in place as prescribed Yes Yes Has compression in place as prescribed N/A Yes Has offloadiing in place as prescribed Yes Yes Experienced any changes in pain level or No No management Left Footwear Removable Cast Removable Cast Walker/Walking Walker/Walking Boot Boot Right Footwear Regular Shoe Regular Shoe Pain Scale: 0-10 Numeric Is Patient Pain Free? Yes Yes WC - Nurse 1 - General Ulcer Measurement Start: 02/18/23 08:29 Freq: Status: Active Protocol: Activity Type Activity Date Activity User E-sign Co-sign Detail Recorded Client Recorded Date Recorded By Document 02/18/23 08:29 [employer] Desktop 02/18/23 08:34 [employer] Document 03/04/23 08:36 [employer] Desktop 03/04/23 08:43 KW 02/18/23 03/04/23 08:29 08:36 Wound Center Nurse 1 #3- L LAT PLANTAR FOOT -Combined with other wound No -Current Size (cm) - Length 0.5 0.4 -Current Size (cm) - Width 0.6 0.4 -Current Size (cm) - Depth 0.1 0.2 -Total Square Cm 0.30 0.16 -Date of Last Picture (Recall this 02/18/23 field) -Photo Taken Yes -Epithelialization Small 1-33% -Tunneling No -Undermining/Tunneling No -Circular Undermining No -Exudate Amt Medium Small -Exudate Type Serosanguineous Serosanguineous -Wound Margin Distinct, Distinct, Outline Outline Attached Attached -Granulation Amt Large (67-100%) Small (1-33%) -Granulation Quality Red [place] -Slough/Fibrin No -Necrosis Amt None Present (0 Small (1-33%) %) -Necrotic Tissue Type Adherent Slough -Texture (Mariama-wound Skin Appearance) Assessed,Callus Assessed ,Scarring -Moisture (Mariama-wound Skin Appearance) Assessed, Assessed, Maceration Maceration -Color (Mariama-wound Skin Appearance) Assessed Assessed -Temperature ([place]ari[place]-wound Skin No Abnormality No Abnormality Appearance) (Pt Warm) (Pt Warm) -Tenderness on Palpation (Mariama-wound No Skin Appearance) -Ulcer Cleansing Rinsed/ Rinsed/ Irrigated with Irrigated with Saline Saline -Foul Odor after Cleansing No No -Anesthetic Used 5% Lidocaine 5% Lidocaine Gel Gel Lower Limb Edema Present Yes Left Calf (cm) 41 Left Ankle (cm) 23.8 WC - Nurse 2 - General Ulcer CM Notes Start: 02/18/23 08:29 Freq: Status: Active Protocol: Activity Type Activity Date Activity User E-sign Co-sign Detail Recorded Client Recorded Date Recorded By Document 02/18/23 08:40 MW Desktop 02/18/23 08:41 MW Document 03/04/23 08:51 MW Desktop 03/04/23 09:01 MW 02/18/23 03/04/23 08:40 08:51 Wound Center Nurse 2 #3- L LAT PLANTAR FOOT -Time 08:40 08:52 -Correct Patient Yes Yes -Correct Side, Site, Position Yes Yes -Correct Procedure Yes Yes -Procedure Performed Yes Yes -Type of Procedure Debridement Debridement -Clinical Debridement Subcutaneous Subcutaneous -Tissue Removed Subcutaneous Subcutaneous -Post Debridement (cm) - Length 0.4 0.4 -Post Debridement (cm) - Width 0.6 0.4 -Post Debridement (cm) - Depth 0.1 0.1 -Total Square (Post) (cm) 0.24 0.16 -Area of Debridement (cm) - Length 0.4 0.4 -Area of Debridement (cm) - Width 0.6 0.4 -Total Square (Area) (cm) 0.24 0.16 -Tunneling No No -Undermining/Tunneling No No -Circular Undermining No No -Wound/Ulcer Outcome Not Healed Not Healed -Ulcer Cleansing Rinsed/ Rinsed/ Irrigated with Irrigated with Saline Saline -Foul Odor after Cleansing No No -Bioengineered Tissue No No -Bleeding Controlled with Pressure Pressure -Treatment Response Procedure Procedure Tolerated Well Tolerated Well -Offloading No No -Debridement - Subq, 1st 20sq cm Yes Yes Pain Scale: 0-10 Numeric Is Patient Pain Free? Yes Yes WC - Nurse 3 - General Ulcer D/C NN Start: 02/18/23 08:29 Freq: Status: Active Protocol: Activity Type Activity Date Activity User E-sign Co-sign Detail Recorded Client Recorded Date Recorded By Document 02/18/23 08:47 GM Desktop 02/18/23 08:49 GM Document 03/04/23 09:10 KW Desktop 03/04/23 09:10 KW 02/18/23 03/04/23 08:47 09:10 Wound Care Center Nurse 3 #3- L LAT PLANTAR FOOT -Ulcer Cleansing Not Cleansed -Foul Odor after Cleansing No -Primary Dressing Applied Mepilex Border, Mepilex Border, Promogran Promogran Mimi Matter Mimi Matter -Mepilex Border 1 1 -Promogran Mimi Matter 1 1 Left -Lotion applied to leg before No compression wrap -Tubular Bandage Double Layer Double Layer -Size of Tubigrip Used Size D Size D -Size D ($) 2 2 Pain Scale: 0-10 Numeric Is Patient Pain Free? Yes Yes Teaching: Wound Center Dressing Your Wound -Person Taught Patient -Teaching Method Discussion -Response to teaching Verbalize understanding WC - Visit Discharge Discharge Condition Stable Stable Ambulatory Status Ambulatory Ambulatory Transportation Private Auto Private Auto Medication Reconcilliation completed & Yes No provided to patient/care provider Clinical Summary of Care Provided Yes Yes Assessment/Plan Assessment/Plan (1) Infected wound: CODE(S): T14.8XXA - Other injury of unspecified body region, initial encounter; L08.9 - Local infection of the skin and subcutaneous tissue, unspecified (2) 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: CODE(S): E08.621 - Diabetes mellitus due to underlying condition with foot ulcer; L97.509 - Non-pressure chronic ulcer of other part of unspecified foot with unspecified severity QUALIFIERS: Diabetic foot ulcer location: toe Laterality: left Non-pressure ulcer stage: limited to breakdown of skin Qualified Code(s): E08.621 - Diabetes mellitus due to underlying condition with foot ulcer; L97.521 - Non-pressure chronic ulcer of other part of left foot limited to breakdown of skin PLAN: Wash foot with antibacterial soap such as Dial Apply Promogran to base of wound moistened cover with absorbent dressing daily Follow-up in 1 week Continue to offload with new inserts and boot (3) Mixed diabetic ulcer of foot: (4) Nonhealing nonsurgical wound: CODE(S): T14.8XXA - Other injury of unspecified body region, initial encounter
[2023-03-11 08:35] VITALS: BP 170/74; PULSE 64; RESP 18; TEMP 35.8; BMI 28.7
--- NOTE | 2023-03-11 11:52 | PCM.WC.PN ---
History of Present Illness Date of Service: 03/11/23 Chief Complaint: Follow-up DFU L lateral foot History of Wound: 47-year-old white male who has had history of this openings for greater than 6 months. He has been seeing Dr. Hooper for the last 6 months following up and has tried several initiatives but is never healed. He finally referred here to the wound center Patient has been using Promogran packed into wound base and moisten covered with absorbent dressing daily. Recently labs were drawn for a fever he has had of 103 and a red streak going up his foot which showed no elevated white count no shift. X-ray of the left foot shows no sign of pending the sensitivity. MRI shows an old fracture no osteomyelitis Was admitted to hospital and had IV antibiotics Sent home on Flagyl Progress of Wound: Have not seen for 2 weeks, progressed very well down to smaller wound shallow getting skin over top side of his foot looks very good no more erythema or swelling noted Patient is still following up with podiatry saw him yesterday and he would like to do a graft but it is really too small. We will continue with the Promogran and stop using the Bactroban Still looks the same gets the maceration even without using the Bactroban. Dr. Lucero has discussed with him surgery to open it up and he x-rays show the bone is coming through that area where the wound is and that is why its not healing well. I agree and this is costing him more money for him to come to the wound center so I am transitioning care totally over to Dr. Lucero and if there is issues he can always come back but I would agree with the surgery because were not going anywhere this wound is just at a standstill. Subjective Subjective Patient is okay with that because I told him its not to start paying for his visits and he is can get stuck with a big bill so he agrees that we will just stay with podiatry and he will do surgery and then he can follow-up if there is any other issues Objective Data Objective Data Still Measurements are about the same very flat a debrided a lot of the callus off again but it just keeps coming back it is still moist with I think is his moisture from his feet sweating with the compression stocking and in its shoe all day leather shoe so I would suggest that he follow-up with Dr. Lucero and that continue with the same Promogran for now until he has surgery in 6 weeks Vital Signs: Vital Signs Temp Pulse Resp BP O2 Del Method 96.5 F L 64 18 170/74 H Room Air 03/11/23 08:35 03/11/23 08:35 03/11/23 08:35 03/11/23 08:35 03/04/23 08:36 Oxygen Delivery Method Room Air Weight: 242 lb Body Mass Index (BMI) 28.7 Lab / Micro Data Attestation: I reviewed the patient's lab results. Physical Exam Const oriented x3 General Appearance: cooperative Exam Limitations: no limitations HEENT normocephalic Eyes General Eye: normal appearance of both eyes Resp normal respiratory effort Effort and Inspection: able to speak in complete sentences Auscultation: clear to auscultation bilaterally Cardio regular rate and regular rhythm Palpation: normal PMI Rate: regular rate Rhythm: regular rhythm Extremity Negative for normal to inspection Extremity Narrative: Left foot slight deformity at the fifth metatarsal from a previous fracture. Open wound on plantar side of foot. With it going up the side of the foot has a superficial area. Skin no rashes or lesions noted Skin Narrative: Does have a red streak going up his left lateral foot pending his culture results Open wound on plantar side of foot General Skin Exam: dry skin and erythema Lesions: no lesions Psych Appearance: grossly normal Speech: normal speech Thought Content: normal thought content Judgement: judgement good Debridement Note Debridement Note Wound debrided: Left plantar foot decubitus ulcer Wound Grade/Stage: Stage III Type of Debridement: Excisional debridement Anesthesia Used: 5% Lidocaine Gel Depth: Down to and including healthy tissue Percentage of wound debrided: 100 Instrument Used: #15 blade Tissue Removed: Callus and fibrin Severity: Limited To Skin Breakdown Amount of bleeding with debridement: Mild Bleeding Controlled with: Compression and gauze Patient tolerated procedure: Patient tolerated procedure well Post-Debridement Measurements and Additional Note: Post-Debridement Measurements/Treatment DAVIN - Nurse 1 - General Ulcer Assessment Start: 02/18/23 08:29 Freq: Status: Active Protocol: MONI Activity Type Activity Date Activity User E-sign Co-sign Detail Recorded Client Recorded Date Recorded By Document 02/18/23 08:29 BM Desktop 02/18/23 08:34 BM Document 03/04/23 08:36 Desktop 03/04/23 08:43 KW Document 03/11/23 08:35 DL Desktop 03/11/23 08:41 DL 02/18/23 03/04/23 03/11/23 08:29 08:36 08:35 WC - Today's Visit Information Type of service Follow-up Visit Follow-up Visit Follow-up Visit (Physician/CLINICAL TRANSFORMATION SPECIALIST (Physician/CLINICAL TRANSFORMATION SPECIALIST (Physician/CLINICAL TRANSFORMATION SPECIALIST ) ) ) Arrival Mode Ambulatory, Ambulatory, Ambulatory Walker Other Arrival Mode (Other) knee walker knee scooter Transfer Assistance None Stretcher Patient Identification Verified (Name & Yes Yes Yes ) Patient Requires Transmission-Based No No Precautions Height and Weight Body Mass Index (BMI) 28.7 28.7 28.7 BMI Classification Overweight Overweight Overweight Vital Signs Temperature (97.8 F-99.1 F) 97.1 F L 96.8 F L 96.5 F L Temperature Source Temporal Temporal Temporal Pulse Rate (60-100) 55 L 56 L 64 Pulse Location Monitor Monitor Monitor Respiratory Rate (12-18) 16 18 18 Respiratory rate source Observation Observation Observation Oxygen Delivery Method Room Air Room Air Blood Pressure (90/60-120/80) 157/64 H 158/75 H 170/74 H Blood Pressure Mean (mm Hg) 95 102 106 Source Monitor Monitor Monitor Position Sitting Semi-Fowlers Blood Pressure Location Left Arm Left Arm History Since Last Visit- (Skip if this is Patient's initial visit) Have you changed medications since your No Yes No last visit? Any new allergies or adverse reactions No No No Had a fall/change in ADL's that may No No No increase risk of falls Signs or symptoms of abuse and/or No No No neglect since last visit Have you been in the hospital since your No No No last visit? Has dressing in place as prescribed Yes Yes Yes Has compression in place as prescribed N/A Yes No Has offloadiing in place as prescribed Yes Yes Yes Experienced any changes in pain level or No No No management Left Footwear Removable Cast Removable Cast Walker/Walking Walker/Walking Boot Boot Right Footwear Regular Shoe Regular Shoe Pain Scale: 0-10 Numeric Is Patient Pain Free? Yes Yes Yes - Nurse 1 - General Ulcer Measurement Start: 02/18/23 08:29 Freq: Status: Active Protocol: Activity Type Activity Date Activity User E-sign Co-sign Detail Recorded Client Recorded Date Recorded By Document 02/18/23 08:29 BMF Desktop 02/18/23 08:34 BMF Document 03/04/23 08:36 KW Desktop 03/04/23 08:43 KW Document 03/11/23 08:35 DL Desktop 03/11/23 08:41 DL 02/18/23 03/04/23 03/11/23 08:29 08:36 08:35 Wound Center Nurse 1 #3- L LAT PLANTAR FOOT -Combined with other wound No -Current Size (cm) - Length 0.5 0.4 0.5 -Current Size (cm) - Width 0.6 0.4 0.6 -Current Size (cm) - Depth 0.1 0.2 0.1 -Total Square Cm 0.30 0.16 0.30 -Date of Last Picture (Recall this 02/18/23 field) -Photo Taken Yes -Epithelialization Small 1-33% -Tunneling No -Undermining/Tunneling No -Circular Undermining No -Exudate Amt Medium Small Small -Exudate Type Serosanguineous Serosanguineous Serosanguineous -Wound Margin Distinct, Distinct, Distinct, Outline Outline Outline Attached Attached Attached -Granulation Amt Large (67-100%) Small (1-33%) Medium (34-66%) -Granulation Quality [place] -Slough/Fibrin No -Necrosis Amt None Present (0 Small (1-33%) Small (1-33%) %) -Necrotic Tissue Type Adherent Slough Adherent Slough -Structure Exposed N/A -Texture (Mariama-wound Skin Appearance) Assessed,Callus Assessed Callus ,Scarring -Moisture ([place]ari[place]-wound Skin Appearance) Assessed, Assessed, Maceration Maceration Maceration -Color ([place]ariama-wound Skin Appearance) Assessed Assessed No Abnormality -Temperature ([place]ari[place]-wound Skin No Abnormality No Abnormality No Abnormality Appearance) (Pt Warm) (Pt Warm) (Pt Warm) -Tenderness on Palpation (Mariama-wound No No Skin Appearance) -Ulcer Cleansing Rinsed/ Rinsed/ Soap and Water Irrigated with Irrigated with Saline Saline -Foul Odor after Cleansing No No No -Anesthetic Used 5% Lidocaine 5% Lidocaine 5% Lidocaine Gel Gel Gel Lower Limb Edema Present Yes Left Calf (cm) 41 40 Left Ankle (cm) 23.8 22.2 WC - Nurse 2 - General Ulcer CM Notes Start: 02/18/23 08:29 Freq: Status: Active Protocol: Activity Type Activity Date Activity User E-sign Co-sign Detail Recorded Client Recorded Date Recorded By Document 02/18/23 08:40 MW Desktop 02/18/23 08:41 MW Document 03/04/23 08:51 MW Desktop 03/04/23 09:01 MW Document 03/11/23 08:48 MW Desktop 03/11/23 08:53 MW 02/18/23 03/04/23 03/11/23 08:40 08:51 08:48 Wound Center Nurse 2 #3- L LAT PLANTAR FOOT -Time 08:40 08:52 08:49 -Correct Patient Yes Yes Yes -Correct Side, Site, Position Yes Yes Yes -Correct Procedure Yes Yes Yes -Procedure Performed Yes Yes Yes -Type of Procedure Debridement Debridement Debridement -Clinical Debridement Subcutaneous Subcutaneous Subcutaneous -Tissue Removed Subcutaneous Subcutaneous Subcutaneous -Post Debridement (cm) - Length 0.4 0.4 0.3 -Post Debridement (cm) - Width 0.6 0.4 0.5 -Post Debridement (cm) - Depth 0.1 0.1 0.1 -Total Square (Post) (cm) 0.24 0.16 0.15 -Area of Debridement (cm) - Length 0.4 0.4 0.3 -Area of Debridement (cm) - Width 0.6 0.4 0.5 -Total Square (Area) (cm) 0.24 0.16 0.15 -Tunneling No No No -Undermining/Tunneling No No No -Circular Undermining No No No -Wound/Ulcer Outcome Not Healed Not Healed Not Healed -Ulcer Cleansing Rinsed/ Rinsed/ Rinsed/ Irrigated with Irrigated with Irrigated with Saline Saline Saline -Foul Odor after Cleansing No No No -Bioengineered Tissue No No No -Bleeding Controlled with Pressure Pressure Pressure -Treatment Response Procedure Procedure Procedure Tolerated Well Tolerated Well Tolerated Well -Offloading No No No -Debridement - Subq, 1st 20sq cm Yes Yes Yes Pain Scale: 0-10 Numeric Is Patient Pain Free? Yes Yes Yes DAVIN - Nurse 3 - General Ulcer D/C NN Start: 02/18/23 08:29 Freq: Status: Active Protocol: Activity Type Activity Date Activity User E-sign Co-sign Detail Recorded Client Recorded Date Recorded By Document 02/18/23 08:47 GM Desktop 02/18/23 08:49 GM Document 03/04/23 09:10 KW Desktop 03/04/23 09:10 KW Document 03/11/23 08:53 MW Desktop 03/11/23 08:54 MW 02/18/23 03/04/23 03/11/23 08:47 09:10 08:53 Wound Care Center Nurse 3 #3- L LAT PLANTAR FOOT -Ulcer Cleansing Not Cleansed Rinsed/ Irrigated with Saline -Foul Odor after Cleansing No No -Negative Pressure Wound Therapy N/A -Primary Dressing Applied Mepilex Border, Mepilex Border, Mepilex Border, Promogran Promogran Promogran Mimi Matter Mimi Matter Mimi Matter -Mepilex Border 1 1 1 -Promogran Mimi Matter 1 1 1 Left -Lotion applied to leg before No compression wrap -Tubular Bandage Double Layer Double Layer -Size of Tubigrip Used Size D Size D -Size D ($) 2 2 Treatment Response Procedure Tolerated Well Pain Scale: 0-10 Numeric Is Patient Pain Free? Yes Yes Yes Teaching: Wound Center Dressing Your Wound -Person Taught Patient -Teaching Method Discussion -Response to teaching Verbalize understanding WC - Visit Discharge Discharge Condition Stable Stable Stable Ambulatory Status Ambulatory Ambulatory Ambulatory Transportation Private Auto Private Auto Private Auto Accompanied by self Medication Reconcilliation completed & Yes No No provided to patient/care provider Clinical Summary of Care Provided Yes Yes Yes Notes: Transfer of Care to Dr. 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: CODE(S): E08.621 - Diabetes mellitus due to underlying condition with foot ulcer; L97.509 - Non-pressure chronic ulcer of other part of unspecified foot with unspecified severity QUALIFIERS: Diabetic foot ulcer location: toe Laterality: left Non-pressure ulcer stage: limited to breakdown of skin Qualified Code(s): E08.621 - Diabetes mellitus due to underlying condition with foot ulcer; L97.521 - Non-pressure chronic ulcer of other part of left foot limited to breakdown of skin PLAN: Wash foot with antibacterial soap such as Dial Apply Promogran to base of wound dry cover with absorbent dressing daily Follow-up with podiatry Will transition care over to Dr. Lucero and to have his surgery in 6 weeks Continue to offload with new inserts and boot (3) Mixed diabetic ulcer of foot: (4) Nonhealing nonsurgical wound: CODE(S): T14.8XXA - Other injury of unspecified body region, initial encounter
== END 2023-03-19 23:59 | disposition home or self-care (01) ==
LOC: WC 08:30
PROVIDERS: PCP Family Medicine; Referring Provider Nurse Practitioner; Visit Provider Nurse Practitioner
DX: E11.621 Type 2 diabetes mellitus with foot ulcer (principal); L97.521 Non-pressure chronic ulcer of other part of left foot limited to breakdown of skin; T14.8XXA Other injury of unspecified body region, initial encounter
CPT/HCPCS: 11042

== ENCOUNTER → 2023-05-04 | Outpatient (CLI) | payer OTHER, SELFPAY ==
--- OUTSIDE RECORDS SUMMARY | 2023-05-04 21:24 | XMS RPT_ITS | CCD ---
Author Name Unknown Address [address] [place] [address] Organization [facility] Care Team Providers Care Podiatric Medicine Doctor Name Role Phone Vicenta Rai DO Primary Care Provider VICENTA RAI Attending Unavailable VICENTA RAI Primary Care Unavailable VICENTA RAI Attending Unavailable VICENTA RAI Primary Care Unavailable VICENTA RAI Attending Unavailable VICENTA RAI Primary Care Unavailable LESLYE MOLINA Attending Unavailable VICENTA RAI Primary Care Unavailable Allergies Allergy Classification Reported Allergen(s) Allergy Type Date of Onset Reaction(s) Facility (11 sources) Penicillins Drug Intolerance 07-07-2016 [facility] (11 sources) Amoxicillin-Pot Clavulanate Drug Allergy 06-16-2006 [facility] Medications Current Medications Medication Drug Class(es) Dates Sig (Normalized) Sig (Original) amLODIPine 10 mg oral tablet (12 sources) Dihydropyridine Calcium Channel Damon Start: 03-04-2023 take 1 tablet by mouth once daily amLODIPine (Norvasc) 10 MG tablet Indications: Benign essential HTN Take 1 tablet (10 mg) by mouth daily. 90 tablet 3 03/04/2023 Active Completed/Discontinued Medications Medication Drug Class(es) Dates Sig (Normalized) Sig (Original) collagenase 0.25 unt/mg topical ointment (5 sources) Collagen-specific Enzyme Start: 11-04-2021 End: 02-27-2023 Santyl 250 UNIT/GM ointment Problems Active Problems Problem Classification Problem Date Documented Da te Episodic/Chronic Chronic ulcer of skin (4 sources) Non-pressure chronic ulcer of other part of left foot with other specified severity; Translations: [Ulcer of other part of foot] Onset: 01-05-2023 01-05-2023 Chronic Diabetes mellitus with complications (9 sources) Type 2 diabetes mellitus; Translations: [Type 2 diabetes mellitus with hyperglycemia] Onset: 01-30-2022 01-05-2023 Chronic Diabetes mellitus without complication (11 sources) Diabetes mellitus; Translations: [Type 2 diabetes mellitus without complications] Onset: 09-29-2018 01-30-2022 Chronic Disorders of lipid metabolism (11 sources) Hyperlipidemia; Translations: [Hyperlipidemia, unspecified] Onset: 09-29-2018 01-30-2022 Chronic Essential hypertension (14 sources) Hypertensive disorder; Translations: [Essential (primary) hypertension] Onset: 09-29-2018 01-30-2022 Chronic Hyperplasia of prostate (2 sources) Benign prostatic hyperplasia with lower urinary tract symptoms; Translations: [Benign prostatic hyperplasia with lower urinary tract symptoms] Onset: 09-05-2022 Chronic Nutritional deficiencies (2 sources) Vitamin D deficiency, unspecified; Translations: [Vitamin D deficiency, unspecified] Onset: 09-05-2022 Chronic Other liver diseases (11 sources) Steatosis of liver; Translations: [Fatty (change of) liver, not elsewhere classified] Onset: 09-29-2018 01-30-2022 Chronic Other nervous system disorders (11 sources) Neuropathy; Translations: [Polyneuropathy, unspecified] Onset: 09-29-2018 01-30-2022 Chronic Unclassified (2 sources) 6 Month Follow-up; Translations: [6 Month Follow-up] Onset: 02-27-2023 Past or Other Problems Problem Classification Problem Date Documented Da te Episodic/Chronic Genitourinary symptoms and ill-defined conditions (2 sources) Frequency of micturition; Translations: [Frequency of micturition] Onset: 09-05-2022 Episodic Other acquired deformities (4 sources) Unspecified acquired deformity of left lower leg; Translations: [Unspecified deformity of ankle and foot, acquired] Onset: 01-05-2023 01-05-2023 Episodic Other screening for suspected conditions (not mental disorders or infectious disease) (4 sources) Encounter for screening for malignant neoplasm of colon; Translations: [Encounter for screening for malignant neoplasm of prostate] Onset: 09-05-2022 Episodic Results Test Name Value Interpretation Reference Range Facil ity Vital Signs Date Time Vital Sign Value Performing Clinician Faci lity 04-28-2023 08:22-0500 Diastolic blood pressure 80 mm[Hg] Leslye Barro PA-C Work Phone: [facility] 04-28-2023 08:22-0500 Systolic blood pressure 144 mm[Hg] Leslye Barro PA- C Work Phone: [facility] 04-28-2023 07:58-0500 Body height 195.6 cm Leslye Molina PA-C Work Phone: [facility] 04-28-2023 07:58-0500 Body mass index (BMI) [Ratio] 31.07 kg/m2 Leslye Barro PA-C Work Phone: [facility] 04-28-2023 07:58-0500 Body temperature 98.1 [degF] Leslye Barro PA-C Work Phone: [facility] 04-28-2023 07:58-0500 Body weight 118.84 kg Leslye Molina PA-C Work Phone: [facility] 04-28-2023 07:58-0500 Heart rate 69 /min Leslye Barro PA-C Work Phone: [facility] 04-28-2023 07:58-0500 SaO2% (BldA) [Mass fraction] 99 % Leslye Barro PA-C Work Phone: [facility] 02-27-2023 08:49-0500 Diastolic blood pressure 88 mm[Hg] Vicenta Rai DO Work Phone: [facility] 02-27-2023 08:49-0500 Systolic blood pressure 160 mm[Hg] Vicenta Rai DO Work Phone: [facility] 02-27-2023 08:18-0500 Body height 195.6 cm Vicenta Rai DO Work Phone: [facility] 02-27-2023 08:18-0500 Body mass index (BMI) [Ratio] 30.95 kg/m2 Vicenta Rai DO Work Phone: [facility] 02-27-2023 08:18-0500 Body weight 118.39 kg Vicenta Rai DO Work Phone: [facility] 02-27-2023 08:18-0500 Heart rate 60 /min Vicenta Rai DO Work Phone: [facility] 02-27-2023 08:18-0500 SaO2% (BldA) [Mass fraction] 99 % Vicenta Rai DO Work Phone: [facility] 01-05-2023 14:06-0400 Body height 195.6 cm Vicenta Rai DO Work Phone: [facility] 01-05-2023 14:06-0400 Body mass index (BMI) [Ratio] 29.76 kg/m2 Vicenta Rai DO Work Phone: [facility] 01-05-2023 14:06-0400 Body weight 113.85 kg Vicenta Rai DO Work Phone: [facility] 01-05-2023 14:06-0400 Diastolic blood pressure 81 mm[Hg] Vicenta Rai DO Work Phone: [facility] 01-05-2023 14:06-0400 Heart rate 54 /min Vicenta Rai DO Work Phone: [facility] 01-05-2023 14:06-0400 SaO2% (BldA) [Mass fraction] 98 % Vicenta Rai DO Work Phone: [facility] 01-05-2023 14:06-0400 Systolic blood pressure 134 mm[Hg] Vicenta Rai DO Work Phone: [facility] Encounters Encounter Date Encounter Type Care Provider Facility Start: 04-28-2023 End: 04-28-2023 ambulatory LESLYE MOLINA [facility] Start: 04-28-2023 End: 04-28-2023 Encounter for other preprocedural examination LESLYE MOLINA [facility] Start: 04-28-2023 End: 04-28-2023 Office outpatient visit 15 minutes Leslye Molina PA-C Work Phone: [facility] Procedures Date Procedure Procedure Detail Performing Clinician Start: 04-28-2023 Complete blood count with white cell differential, automated Leslye Molina PA-C Work Phone: Start: 04-28-2023 End: 04-28-2023 Hemoglobin glycosylated a1c Leslye Molina PA-C Work Phone: Start: 02-27-2023 Comprehensive metabo lic panel Vicenta Mahamed Cecelia DO Work Phone: Start: 02-27-2023 Lipid panel Vicenta Mahamed Cecelia DO Work Phone: Start: 02-27-2023 PSA TOTAL (SCREENING) C hrflakitoa Mahamed Cecelia DO Work Phone: Start: 02-27-2023 Urnls dip stick/tabl et rgnt auto w/o microscopy Vicenta M Cecelia DO Work Phone: Start: 02-27-2023 Lipid 1996 panel - S tony or Plasma Vicentaaimee Rai DO Work Phone: Start: 08-28-2021 Lipid 1996 panel - S tony or Plasma Melissa Buckley RN Plan of Treatment Date Care Activity Detail Author Start: 2034 RSV Immunization age d 60 or older (1 - 1-dose 60+ series) RSV Immunization aged 60 or older (1 - 1-dose 60+ series) [facility] Start: 08-01-2026 DTaP/Tdap/Td Vaccine s (2 - Td or Tdap) DTaP/Tdap/Td Vaccines (2 - Td or Tdap) [facility] Start: 2024 Zoster Vaccines (1 of 2) Zoster Vacc pedro luis (1 of 2) [facility] Start: 04-28-2024 Hemoglobin A1c measurement Diabetes: Hemoglobin A1C [facility] Start: 02-28-2024 Hemoglobin A1c measurement Diabetes: Hemoglobin A1C [facility] Start: 02-28-2024 Lipid panel Lipid Panel [facility] Start: 06-03-2023 Glaucoma screening Diabetes: R etinopathy Screening [facility] Start: 04-28-2023 End: 04-28-2024 CBC W Auto Differential panel - Blood CBC auto differential Lab Routine Type 2 diabetes mellitus with hyperglycemia, without long-term current use of insulin (HCC) Pre-op evaluation Expected: 04/28/2023 (Approximate), Expires: 04/28/2024 [facility] Work Phone: Immunizations Immunization Date Immunization Notes Care Provider Fa anicetoty 08-18-2020 Pfizer SARS-CoV-2 Vaccination Melissa Buckley RN [facility] 07-28-2020 Pfizer SARS-CoV-2 Vaccination Melissa Buckley RN [facility] Payers Date Payer Category Payer Unknown [facility] [id number] 2023-Present [address] [place] [address] Commercial [id number] 2023 Unknown [id number] 2022 Private Health Insurance [id number] 2022 Private Health Insurance [id number] 2022 Private Health Insurance [id number] Social History Date Type Detail Facility Tobacco smoking status NHIS Never smoked tobacco [facility] Start: 09-05-2022 End: 04-28-2023 Alcohol intake Current non-drinker of alcohol (finding) [facility] Start: 09-05-2022 End: 04-28-2023 History of Social function [facility] Start: 09-05-2022 End: 04-28-2023 Tobacco use panel [facility] Start: 1975 Sex Assigned At Not on file [facility] Start: 02-06-2022 Gender identity Identifies as male gender (finding) [facility] Start: 02-06-2022 Sexual orientation Heterosexual (fin ding) [facility] Start: 12-26-2022 End: 01-05-2023 Exposure to SARS-CoV-2 (event) Not sure [facility] Start: 1975 Sex Assigned At Male [facility] Clinical Notes 06-28-2020 to 04-28-2023 Assessment & Plan Note - Leslye Molina PA-C - 04/28/2023 8:52 AM ESTAssessment & Plan Note - ZHANNA Thompson 04/28/2023 8:52 AM Jackie Molina PA-C - 04/28/2023 8:00 AM EST Note Date & Type Note Facility 04-28-2023 Note Addended by: LESLYE MOLINA on: 04/29/2023 07:52 AM Modules accepted: Level of Service [facility] 04-28-2023 Evaluation + Plan note Associated Problem(s): Diabetes (HCC) - Chronic stable poorly controlled hemoglobin A1c is climbing the 7.3 it is now 8.6. - Will start the patient on Mounjaro to get better control of his A1c and his blood sugar. Reluctant to clear for surgery at this point time as I believe the patient is going to have a harder and more difficult and challenging time with wound healing as it does appear based on notes that he is scheduled to have delayed primary closure of the wound [facility] 04-28-2023 Miscellaneous Notes Associated Problem(s): Diabetes (HCC) - Chronic stable poorly controlled hemoglobin A1c is climbing the 7.3 it is now 8.6. - Will start the patient on Mounjaro to get better control of his A1c and his blood sugar. Reluctant to clear for surgery at this point time as I believe the patient is going to have a harder and more difficult and challenging time with wound healing as it does appear based on notes that he is scheduled to have delayed primary closure of the wound documented in this encounter [facility] 04-28-2023 Miscellaneous Notes Associated Problem(s): Diabetes (HCC) - Chronic stable poorly controlled hemoglobin A1c is climbing the 7.3 it is now 8.6. - Will start the patient on Mounjaro to get better control of his A1c and his blood sugar. Reluctant to clear for surgery at this point time as I believe the patient is going to have a harder and more difficult and challenging time with wound healing as it does appear based on notes that he is scheduled to have delayed primary closure of the wound Addended by: LESLYE MOLINA on: 04/29/2023 07:52 AM Modules accepted: Level of Service documented in this encounter [facility] 04-28-2023 History of Presen t illness Narrative Images from the original note were not included. [facility] [address] [facility] [address] Dept: [phone] Dept Loc: [phone] Visit type: Established Patient Reason for Visit: Foot Pain (Left foot surgeries clearance ) Assessment and Plan 1. Type 2 diabetes mellitus with hyperglycemia, without long-term current use of insulin (HCC) Assessment & Plan: - Chronic stable poorly controlled hemoglobin A1c is climbing the 7.3 it is now 8.6. - Will start the patient on Mounjaro to get better control of his A1c and his blood sugar. Reluctant to clear for surgery at this point time as I believe the patient is going to have a harder and more difficult and challenging time with wound healing as it does appear based on notes that he is scheduled to have delayed primary closure of the wound Orders: - AMB POC HEMOGLOBIN A1C - CBC auto differential - Comprehensive metabolic panel - Tirzepatide (Mounjaro) 2.5 MG/0.5ML solution pen-injector; Inject 2.5 mg under the skin 1 (one) time per week for 28 days., Starting Thu04/28/2023, Until Thu05/26/2023, Normal 2. Pre-op evaluation - CBC auto differential - Comprehensive metabolic panel 3. Diabetic ulcer of left midfoot associated with type 2 diabetes mellitus, unspecified ulcer stage (HCC) -Patient has a persistent diabetic foot ulcer but has poor healing over the last several months my concern would be that it is having a difficult time healing secondary to the persistent elevation of his blood sugar. Clinically the patient appears stable is risk assessment for hospital complications is considered below average based on the [employer] risk calculation for surgery. However due to the climbing A1c is now 8.6 I will make a recommendation to the surgeon that he should hold off surgery as a possibility of poor wound healing at this point time to his sugars better controlled. -[facility], Follow up if symptoms worsen or fail to improve, for Next scheduled follow-up. Subjective HPI this is a 47-year-old male with underlying history of hypertension, hyperlipidemia and diabetes who presents to the office today for medical evaluation and surgical clearance. Patient comes in today ultimately planning on having plantar planing of the left foot due to persistent and poor healing diabetic foot ulcer on the left foot and it has been there for at least the last 3 months. It is better but still having difficult time healing he had previously broken a bone in his foot and subsequently it that healed poorly and they believe the pressure sore is directly over the poorly healing bone. The plan is to smooth out the bone and that might help with the wound healing. Preoperative Clearance Evaluation Pt presents today for preoperative clearance. Pt is scheduled on 05/06/[address] Lucero for left foot plantar planing, bone biopsy, with achilles lengthening. Surgery is general anesthesia and considered Same day History of: 1. Kidney disease? No 2. Heart attack? No 3. Irregular heartbeat? No 4. Stroke? No 5. Epilepsy or seizures? No 6. Thyroid disease? No 7. Liver disease? No, did have fatty liver disease but had previous biopsy 8. Sleep apnea? Did apnea test in the past but had bariatric surgery and seems to be improved OTC Medication Use: vitamin supplements Exercise: very limited due to persistent issues with left foot Has anyone in your family (blood relatives) had a complication following an anaesthetic? - No If you have been put to sleep for an operation, were there any anaesthetic problems? - yes has had anesthesia, with bariatric surgery without complications. Preadmission testing ordered? - Yes Review of Systems Constitutional: Negative for chills and fever. HENT: Negative for congestion and sore throat. Respiratory: Negative for cough and shortness of breath. Cardiovascular: Negative for chest pain. Gastrointestinal: Negative for abdominal pain, diarrhea, nausea and vomiting. Genitourinary: Negative for difficulty urinating. Musculoskeletal: Negative for back pain and neck pain. Neurological: Negative for dizziness and light-headedness. All other systems reviewed and are negative. Allergies Allergen Reactions Amoxicillin-Pot Clavulanate Hives Penicillins Hives Outpatient Medications Prior to Visit Medication Sig Dispense Refill amLODIPine (Norvasc) 10 MG tablet Take 1 tablet (10 mg) by mouth daily. 90 tablet 3 biotin 10 MG tablet Take by mouth. Calcium Carbonate-Vitamin D (Calcium 600+D) 600-5 MG-MCG tablet Take by mouth. cyanocobalamin (Vitamin B-12) 100 MCG tablet Take by mouth. ergocalciferol (Vitamin D2) 1.25 MG (54098 UT) capsule Take 1 capsule (1.25 mg) by mouth 1 (one) time per week. 12 capsule 3 lisinopril-hydroCHLOROthiazide 20-12.5 MG tablet Take 2 tablets by mouth daily. 90 tablet 3 metFORMIN (Glucophage) 1000 MG tablet Take 1 tablet (1,000 mg) by mouth in the morning and 1 tablet (1,000 mg) in the evening. Take with meals. 180 tablet 3 metoprolol succinate XL (Toprol-XL) 100 MG 24 hr tablet Take 1 tablet (100 mg) by mouth daily. 90 tablet 3 tamsulosin (Flomax) 0.4 MG 24 hr capsule TAKE 1 CAPSULE BY MOUTH ONCE DAILY 90 capsule 2 therapeutic multivitamin-minerals (Theragran-M) tablet Take 1 tablet by mouth daily. zinc gluconate 50 MG tablet Take 50 mg by mouth daily. No facility-administered medications prior to visit. Past Medical History: Diagnosis Date Diabetes (HCC) Fatty liver Hyperlipidemia Hypertension Neuropathy Social History Tobacco Use Smoking status: Never Smokeless tobacco: Never Substance Use Topics Alcohol use: No Past Surgical History: Procedure Laterality Date BARIATRIC SURGERY 04/15/2019 Family History Problem Relation Name Age of Onset High Blood Pressure Father High Blood Pressure Mother Cancer Maternal Grandmother Diabetes Maternal Grandfather Objective BP (!) 144/80 (BP Location: Right arm, Patient Position: Sitting, BP Cuff Size: Adult) Pulse 69 Temp 36.7 C (98.1 F) Ht 6' 5 (1.956 m) Wt 262 lb (119 kg) SpO2 99% BMI 31.07 kg/m Physical Exam Vitals reviewed. Constitutional: General: He is not in acute distress. Appearance: Normal appearance. He is not toxic-appearing. HENT: Right Ear: Tympanic membrane and ear canal normal. Left Ear: Tympanic membrane and ear canal normal. Mouth/Throat: Mouth: Mucous membranes are moist. Pharynx: No oropharyngeal exudate. Eyes: General: No scleral icterus. Conjunctiva/sclera: Conjunctivae normal. Pupils: Pupils are equal, round, and reactive to light. Neck: Vascular: No carotid bruit. Cardiovascular: Rate and Rhythm: Normal rate and regular rhythm. Heart sounds: Normal heart sounds. Pulmonary: Effort: Pulmonary effort is normal. No respiratory distress. Breath sounds: Normal breath sounds. No wheezing or rales. Abdominal: General: Bowel sounds are normal. There is no distension. Palpations: Abdomen is soft. There is no mass. Tenderness: There is no abdominal tenderness. There is no guarding. Musculoskeletal: Cervical back: Normal range of motion and neck supple. No rigidity or tenderness. Comments: Open toed splint left foot/ankle, mild neuropathy in distal foot left Lymphadenopathy: Cervical: No cervical adenopathy. Skin: General: Skin is warm and dry. Coloration: Skin is not jaundiced or pale. Findings: Lesion present. Comments: Persistent diabetic foot ulcer lateral plantar left foot. Neurological: Mental Status: He is alert. Psychiatric: Mood and Affect: Mood normal. Data Reviewed and Summarized Labs: Imaging/Testing: Leslye Molina PA-C 04/28/2023 Please note that portions of this note may have been completed with voice recognition software. Documentation reviewed prior to signing but minor errors in horse stud manager may have occurred. documented in this encounter [facility] 04-28-2023 History of Presen t illness Narrative Images from the original note were not included. [facility] [address] [place] [address] [address] [facility] [address] Dept: [phone] Dept Loc: [phone] Visit type: Established Patient Reason for Visit: Foot Pain (Left foot surgeries clearance ) Assessment and Plan 1. Type 2 diabetes mellitus with hyperglycemia, without long-term current use of insulin ([facility]) Assessment & Plan: - Chronic stable poorly controlled hemoglobin A1c is climbing the 7.3 it is now 8.6. - Will start the patient on Mounjaro to get better control of his A1c and his blood sugar. Reluctant to clear for surgery at this point time as I believe the patient is going to have a harder and more difficult and challenging time with wound healing as it does appear based on notes that he is scheduled to have delayed primary closure of the wound Orders: - AMB POC HEMOGLOBIN A1C - CBC auto differential - Comprehensive metabolic panel - Tirzepatide (Mounjaro) 2.5 MG/0.5ML solution pen-injector; Inject 2.5 mg under the skin 1 (one) time per week for 28 days., Starting 04/28/2023, Until e 05/26/2023, Normal 2. Pre-op evaluation - CBC auto differential - Comprehensive metabolic panel 3. Diabetic ulcer of left midfoot associated with type 2 diabetes mellitus, unspecified ulcer stage (HCC) -Patient has a persistent diabetic foot ulcer but has poor healing over the last several months my concern would be that it is having a difficult time healing secondary to the persistent elevation of his blood sugar. Clinically the patient appears stable is risk assessment for hospital complications is considered below average based on the [employer] risk calculation for surgery. However due to the climbing A1c is now 8.6 I will make a recommendation to the surgeon that he should hold off surgery as a possibility of poor wound healing at this point time to his sugars better controlled. -[facility], Follow up if symptoms worsen or fail to improve, for Next scheduled follow-up. Subjective HPI this is a 47-year-old male with underlying history of hypertension, hyperlipidemia and diabetes who presents to the office today for medical evaluation and surgical clearance. Patient comes in today ultimately planning on having plantar planing of the left foot due to persistent and poor healing diabetic foot ulcer on the left foot and it has been there for at least the last 3 months. It is better but still having difficult time healing he had previously broken a bone in his foot and subsequently it that healed poorly and they believe the pressure sore is directly over the poorly healing bone. The plan is to smooth out the bone and that might help with the wound healing. Preoperative Clearance Evaluation Pt presents today for preoperative clearance. Pt is scheduled on 05/06/[address] Lucero for left foot plantar planing, bone biopsy, with achilles lengthening. Surgery is general anesthesia and considered Same day History of: 1. Kidney disease? No 2. Heart attack? No 3. Irregular heartbeat? No 4. Stroke? No 5. Epilepsy or seizures? No 6. Thyroid disease? No 7. Liver disease? No, did have fatty liver disease but had previous biopsy 8. Sleep apnea? Did apnea test in the past but had bariatric surgery and seems to be improved OTC Medication Use: vitamin supplements Exercise: very limited due to persistent issues with left foot Has anyone in your family (blood relatives) had a complication following an anaesthetic? - No If you have been put to sleep for an operation, were there any anaesthetic problems? - yes has had anesthesia, with bariatric surgery without complications. Preadmission testing ordered? - Yes Review of Systems Constitutional: Negative for chills and fever. HENT: Negative for congestion and sore throat. Respiratory: Negative for cough and shortness of breath. Cardiovascular: Negative for chest pain. Gastrointestinal: Negative for abdominal pain, diarrhea, nausea and vomiting. Genitourinary: Negative for difficulty urinating. Musculoskeletal: Negative for back pain and neck pain. Neurological: Negative for dizziness and light-headedness. All other systems reviewed and are negative. Allergies Allergen Reactions Amoxicillin-Pot Clavulanate Hives Penicillins Hives Outpatient Medications Prior to Visit Medication Sig Dispense Refill amLODIPine (Norvasc) 10 MG tablet Take 1 tablet (10 mg) by mouth daily. 90 tablet 3 biotin 10 MG tablet Take by mouth. Calcium Carbonate-Vitamin D (Calcium 600+D) 600-5 MG-MCG tablet Take by mouth. cyanocobalamin (Vitamin B-12) 100 MCG tablet Take by mouth. ergocalciferol (Vitamin D2) 1.25 MG (69060 UT) capsule Take 1 capsule (1.25 mg) by mouth 1 (one) time per week. 12 capsule 3 lisinopril-hydroCHLOROthiazide 20-12.5 MG tablet Take 2 tablets by mouth daily. 90 tablet 3 metFORMIN (Glucophage) 1000 MG tablet Take 1 tablet (1,000 mg) by mouth in the morning and 1 tablet (1,000 mg) in the evening. Take with meals. 180 tablet 3 metoprolol succinate XL (Toprol-XL) 100 MG 24 hr tablet Take 1 tablet (100 mg) by mouth daily. 90 tablet 3 tamsulosin (Flomax) 0.4 MG 24 hr capsule TAKE 1 CAPSULE BY MOUTH ONCE DAILY 90 capsule 2 therapeutic multivitamin-minerals (Theragran-M) tablet Take 1 tablet by mouth daily. zinc gluconate 50 MG tablet Take 50 mg by mouth daily. No facility-administered medications prior to visit. Past Medical History: Diagnosis Date Diabetes (HCC) Fatty liver Hyperlipidemia Hypertension Neuropathy Social History Tobacco Use Smoking status: Never Smokeless tobacco: Never Substance Use Topics Alcohol use: No Past Surgical History: Procedure Laterality Date BARIATRIC SURGERY 04/15/2019 Family History Problem Relation Name Age of Onset High Blood Pressure Father High Blood Pressure Mother Cancer Maternal Grandmother Diabetes Maternal Grandfather Objective BP (!) 144/80 (BP Location: Right arm, Patient Position: Sitting, BP Cuff Size: Adult) Pulse 69 Temp 36.7 C (98.1 F) Ht 6' 5 (1.956 m) Wt 262 lb (119 kg) SpO2 99% BMI 31.07 kg/m Physical Exam Vitals reviewed. Constitutional: General: He is not in acute distress. Appearance: Normal appearance. He is not toxic-appearing. HENT: Right Ear: Tympanic membrane and ear canal normal. Left Ear: Tympanic membrane and ear canal normal. Mouth/Throat: Mouth: Mucous membranes are moist. Pharynx: No oropharyngeal exudate. Eyes: General: No scleral icterus. Conjunctiva/sclera: Conjunctivae normal. Pupils: Pupils are equal, round, and reactive to light. Neck: Vascular: No carotid bruit. Cardiovascular: Rate and Rhythm: Normal rate and regular rhythm. Heart sounds: Normal heart sounds. Pulmonary: Effort: Pulmonary effort is normal. No respiratory distress. Breath sounds: Normal breath sounds. No wheezing or rales. Abdominal: General: Bowel sounds are normal. There is no distension. Palpations: Abdomen is soft. There is no mass. Tenderness: There is no abdominal tenderness. There is no guarding. Musculoskeletal: Cervical back: Normal range of motion and neck supple. No rigidity or tenderness. Comments: Open toed splint left foot/ankle, mild neuropathy in distal foot left Lymphadenopathy: Cervical: No cervical adenopathy. Skin: General: Skin is warm and dry. Coloration: Skin is not jaundiced or pale. Findings: Lesion present. Comments: Persistent diabetic foot ulcer lateral plantar left foot. Neurological: Mental Status: He is alert. Psychiatric: Mood and Affect: Mood normal. Data Reviewed and Summarized Labs: Imaging/Testing: Leslye Molina PA-C 04/28/2023 Please note that portions of this note may have been completed with voice recognition software. Documentation reviewed prior to signing but minor errors in horse stud manager may have occurred. documented in this encounter [facility] 04-28-2023 Note Addended by: LESLYE MOLINA on: 04/29/2023 07:52 AM Modules accepted: Level of Service [facility] 04-21-2023 Note Pt cancelled appt wi Dr Rai. Will check with pt on referrals [facility] 04-08-2023 Note Spoke with Ruben mitchell [facility]. I let her know Alexis No Showed for appointment 04/03/2023 for Medical Clearance. Pt will need to reschedule. Dr Rai will be out of office. Pt can also do a appointment with our PA Leslye Molina. [facility] 04-08-2023 Telephone encounter Note Spoke with Ruben from [facility]. I let her know Alexis No Showed for appointment 04/03/2023 for Medical Clearance. Pt will need to reschedule. Dr Rai will be out of office. Pt can also do a appointment with our PA Leslye Molina. [facility] 04-08-2023 Miscellaneous Notes Spoke with Ruben from [facility]. I let her know Alexis No Showed for appointment 04/03/2023 for Medical Clearance. Pt will need to reschedule. Dr Rai will be out of office. Pt can also do a appointment with our PA Leslye Molina. 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 Advised her that the patient does not have an appointment, she said that they may have to cancel his surgery. Best time of day caller can be reached: any Patient advised that office/PCP has 24-48 business hours to return their call: No Called [facility] put papers on Dr Rai deslizbet. They wants labs did not say which kind ? They want patient to have a face to face medical clearance. Name of caller: [facility] Contact phone number: [phone] Relationship to Patient: [facility] Provider: Dr Rai Practice: [facility] location Chief Complaint/Reason for Call: 03/18/23 [facility] calling to ask if the office /provider have received a Fax from [facility] for MEDICAL CLEARANCE needed prior to pt outpatient procedure pls advise call if needed Best time of day caller can be reached: PM Patient advised that office/PCP has 24-48 business hours to return their call: Yes documented in this encounter [facility] 04-08-2023 Telephone encounter Note Name of caller: Ruben Contact phone number: [phone] 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 Advised her that the patient does not have an appointment, she said that they may have to cancel his surgery. Best time of day caller can be reached: any Patient advised that office/PCP has 24-48 business hours to return their call: No [facility] 04-02-[address] Rai. Pt has an appt with you tomorrow. One for GI and one for ophthalmology. Wondering if pt still wants the referrals open. Please advise and send back to me. Thank you for your help. Yisel POD coordinator [facility] 03-18-2023 Note Called [facility] put pap ers on Dr Rai desk. They wants labs did not say which kind ? They want patient to have a face to face medical clearance. [facility] 03-18-2023 Telephone encounter Note Called [facility] put papers on Dr Rai desk. They wants labs did not say which kind ? They want patient to have a face to face medical clearance. [facility] 03-18-2023 Telephone encounter Note Name of caller: [facility] Contact phone number: [phone] Relationship to Patient: [facility] Provider: Dr Rai Practice: [facility] location Chief Complaint/Reason for Call: 03/18/23 [facility] calling to ask if the office /provider have received a Fax from [facility] for MEDICAL CLEARANCE needed prior to pt outpatient procedure pls advise call if needed Best time of day caller can be reached: PM Patient advised that office/PCP has 24-48 business hours to return their call: Yes [facility] 03-02-2023 Telephone encounter Note ordered [facility] 03-02-2023 Miscellaneous Notes ordered Pt says you referred him to Dr Pitts previously but it takes too long to get in. Thinking if their is someone in [facility] he would like to go their. Does he need a referral to someone specific? I believe he has been seeing someone When patient was checking out he said he forgot to mention he needed a referral to an orthopedic/line service attendant? documented in this encounter [facility] 02-27-2023 Note Does he need a refer ral to someone specific? I believe he has been seeing someone [facility] 02-27-2023 Note When patient was denise cking out he said he forgot to mention he needed a referral to an orthopedic/line service attendant? [facility] 02-27-2023 Telephone encounter Note Pt says you referred him to Dr Pitts previously but it takes too long to get in. Thinking if their is someone in [facility] he would like to go their. [facility] 02-27-2023 Telephone encounter Note Does he need a referral to someone specific? I believe he has been seeing someone [facility] 02-27-2023 Telephone encounter Note When patient was checking out he said he forgot to mention he needed a referral to an orthopedic/line service attendant? [facility] 02-27-2023 History of Presen t illness Narrative Images from the original note were not included. [facility] [address] [facility] [id number] Visit type: Established Patient Reason for Visit: 6 Month Follow-up Assessment and Plan Diagnoses and all orders for this visit: Benign essential HTN - amLODIPine (Norvasc) 10 MG tablet; Take 1 tablet (10 mg) by mouth daily. BP is not controlled Increase norvasc FU in 4 weeks No follow-ups on file. Subjective HPI Bp is not well controlled today He has been taking medications BS are doing OK He recently had surgery on his foot, is using a scooter for his leg Review of Systems Constitutional: Negative for appetite change, chills, fatigue and fever. Respiratory: Negative for cough, shortness of breath and wheezing. Cardiovascular: Negative for chest pain, palpitations and leg swelling. Genitourinary: Negative. Allergies Allergen Reactions Amoxicillin-Pot Clavulanate Hives Penicillins Hives Outpatient Medications Prior to Visit Medication Sig Dispense Refill biotin 10 MG tablet Take by mouth. Calcium Carbonate-Vitamin D (Calcium 600+D) 600-5 MG-MCG tablet Take by mouth. cyanocobalamin (Vitamin B-12) 100 MCG tablet Take by mouth. ergocalciferol (Vitamin D2) 1.25 MG (14020 UT) capsule Take 1 capsule (1.25 mg) by mouth 1 (one) time per week. 12 capsule 3 lisinopril-hydroCHLOROthiazide 20-12.5 MG tablet Take 2 tablets by mouth daily. 90 tablet 3 metFORMIN (Glucophage) 1000 MG tablet Take 1 tablet (1,000 mg) by mouth in the morning and 1 tablet (1,000 mg) in the evening. Take with meals. 180 tablet 3 metoprolol succinate XL (Toprol-XL) 100 MG 24 hr tablet Take 1 tablet (100 mg) by mouth daily. 90 tablet 3 tamsulosin (Flomax) 0.4 MG 24 hr capsule TAKE 1 CAPSULE BY MOUTH ONCE DAILY 90 capsule 2 therapeutic multivitamin-minerals (Theragran-M) tablet Take 1 tablet by mouth daily. zinc gluconate 50 MG tablet Take 50 mg by mouth daily. amLODIPine (Norvasc) 5 MG tablet Take 1 tablet (5 mg) by mouth daily. 90 tablet 3 Santyl 250 UNIT/GM ointment No facility-administered medications prior to visit. Past Medical History: Diagnosis Date Diabetes (HCC) Fatty liver Hyperlipidemia Hypertension Neuropathy Social History Socioeconomic History Marital status: Tobacco Use Smoking status: Never Smokeless tobacco: Never Vaping Use Vaping Use: Never used Substance and Sexual Activity Alcohol use: No Drug use: Never Past Surgical History: Procedure Laterality Date BARIATRIC SURGERY 04/15/2019 Past Surgical History: Procedure Laterality Date BARIATRIC SURGERY 04/15/2019 Family History Problem Relation Name Age of Onset High Blood Pressure Father High Blood Pressure Mother Cancer Maternal Grandmother Diabetes Maternal Grandfather Objective BP (!) 160/88 Pulse 60 Ht 6' 5 (1.956 m) Wt 261 lb (118 kg) SpO2 99% BMI 30.95 kg/m Physical Exam Vitals and nursing note reviewed. Constitutional: General: He is not in acute distress. Appearance: Normal appearance. He is not ill-appearing. HENT: Head: Normocephalic and atraumatic. Eyes: Conjunctiva/sclera: Conjunctivae normal. Cardiovascular: Rate and Rhythm: Normal rate and regular rhythm. Pulses: Normal pulses. Heart sounds: Normal heart sounds. No murmur heard. No gallop. Pulmonary: Effort: Pulmonary effort is normal. No respiratory distress. Breath sounds: Normal breath sounds. No stridor. No wheezing, rhonchi or rales. Chest: Chest wall: No tenderness. Musculoskeletal: Cervical back: Neck supple. Right lower leg: No edema. Left lower leg: No edema. Neurological: General: No focal deficit present. Mental Status: He is alert and oriented to person, place, and time. Psychiatric: Mood and Affect: Mood normal. Behavior: Behavior normal. Thought Content: Thought content normal. Judgment: Judgment normal. Data Reviewed POCT: Labs: Imaging/Testing: Chart Clean Up: Medications Discontinued During This Encounter Medication Reason Santyl 250 UNIT/GM ointment amLODIPine (Norvasc) 5 MG tablet Reorder Vicenta Rai DO 03/04/2023 5:04 PM documented in this encounter [facility] 01-05-2023 Note Addended by: VICENTA RAI on: 01/13/2023 02:13 PM Modules accepted: Level of Service [facility] 01-05-2023 History of Presen t illness Narrative Images from the original note were not included. [facility] [address] [place] [id number] Post-Discharge Hospital Follow Up Date of Hospital Admission: 12/11/22 Date of Hospital Discharge: 12/14/22 Readmission Risk Score: Predictive Model Details 2% Factor Value Risk of Hospital Admission or ED Visit Model Is in Relationship Yes Has Diabetes Yes Has Chronic Liver Disease Yes Has PCP Yes ASSESSMENT/PLAN 1. Deformity of left foot - [facility] Foot/Ankle Lower Extremities - Ro 2. Ulcer of left foot with other severity ([facility] - [facility] Foot/Ankle Lower Extremities - Ro 3. Type 2 diabetes mellitus with hyperglycemia, without long-term current use of insulin ([facility] (HCC) Chronic, well controlled on current medications. Continue metformin Medical Decision Making moderate No follow-ups on file. Vicenta M Cecelia, DO 01/12/23 2:25 PM SUBJECTIVE HPI Inpatient course: Discharge summary reviewed Interval History He had a wound on the bottom of the foot Got worse, wouldn't heal for 2 months Admitted and had IV AT and debrided Had an MRI - had what looked like a fracture No weight bearing with a scooter He is off until Jan 18 They did an A1c and it was 7.5 - they increased metformin to 1000 mg bid Seeing podiatry and wound center He is checking BS every other day - 119 to 170 Checked circulation a couple of years ago and it was normal He does have neuropathy I have performed a medication reconciliation during this visit and have reconciled the medications patient is taking as of now against medications ordered at time of hospital discharge. Current Outpatient Medications: amLODIPine (Norvasc) 5 MG tablet, Take 1 tablet (5 mg) by mouth daily., Disp: 90 tablet, Rfl: 3 biotin 10 MG tablet, Take by mouth., Disp: , Rfl: Calcium Carbonate-Vitamin D (Calcium 600+D) 600-5 MG-MCG tablet, Take by mouth., Disp: , Rfl: cyanocobalamin (Vitamin B-12) 100 MCG tablet, Take by mouth., Disp: , Rfl: ergocalciferol (Vitamin D2) 1.25 MG (57320 UT) capsule, Take 1 capsule (1.25 mg) by mouth 1 (one) time per week., Disp: 12 capsule, Rfl: 3 lisinopril-hydroCHLOROthiazide 20-12.5 MG tablet, Take 2 tablets by mouth daily., Disp: 90 tablet, Rfl: 3 metoprolol succinate XL (Toprol-XL) 100 MG 24 hr tablet, Take 1 tablet (100 mg) by mouth daily., Disp: 90 tablet, Rfl: 3 Santyl 250 UNIT/GM ointment, , Disp: , Rfl: tamsulosin (Flomax) 0.4 MG 24 hr capsule, TAKE 1 CAPSULE BY MOUTH ONCE DAILY, Disp: 90 capsule, Rfl: 2 therapeutic multivitamin-minerals (Theragran-M) tablet, Take 1 tablet by mouth daily., Disp: , Rfl: zinc gluconate 50 MG tablet, Take 50 mg by mouth daily., Disp: , Rfl: metFORMIN (Glucophage) 1000 MG tablet, Take 1 tablet (1,000 mg) by mouth in the morning and 1 tablet (1,000 mg) in the evening. Take with meals., Disp: 180 tablet, Rfl: 3 Review of Systems Constitutional: Negative for appetite change, chills, fatigue and fever. Respiratory: Negative for cough, shortness of breath and wheezing. Cardiovascular: Negative for chest pain, palpitations and leg swelling. Genitourinary: Negative. Skin: Positive for wound. OBJECTIVE BP 134/81 Pulse 54 Ht 6' 5 (1.956 m) Wt 251 lb (114 kg) SpO2 98% BMI 29.76 kg/m Physical Exam Vitals and nursing note reviewed. Constitutional: General: He is not in acute distress. Appearance: Normal appearance. He is not ill-appearing. HENT: Head: Normocephalic and atraumatic. Eyes: Conjunctiva/sclera: Conjunctivae normal. Skin: General: Skin is warm and dry. Neurological: General: No focal deficit present. Mental Status: He is alert and oriented to person, place, and time. Psychiatric: Mood and Affect: Mood normal. Behavior: Behavior normal. Thought Content: Thought content normal. Judgment: Judgment normal. documented in this encounter [facility] 01-05-2023 Miscellaneous Notes Addended by: VICENTA RAI on: 01/13/2023 02:13 PM Modules accepted: Level of Service documented in this encounter [facility] 01-05-2023 Note Addended by: VICENTA RAI on: 01/13/2023 02:13 PM Modules accepted: Level of Service [facility] 12-23-2022 Telephone encounter Note Last OV:09/05/22 Scheduled: 01/05/23 [facility] 12-23-2022 Miscellaneous Notes Last OV:09/05/22 Scheduled: 01/05/23 documented in this encounter [facility] 12-23-2022 Telephone encounter Note Patient aware [facility] 12-23-2022 Miscellaneous Notes Patient aware 2PM on jan 05 - this will be a double book yellow slot He is doing well. [facility]. ( Wound Center ) Patient was discharged 12/12/2022. When was he discharged? Where was he admitted? I don't see any documentation of an admission? We will schedule him next week once I Have more information Name of caller: Alexis Contact phone number: [phone] Relationship to Patient: patient Provider: Dr. Ashley Practice: [place] Chief Complaint/Reason for Call: Please assist with scheduling a JAYE appt, the pt was discharge 8/ Best time of day caller can be reached: any Patient advised that office/PCP has 24-48 business hours to return their call: N/A documented in this encounter [facility] 12-23-2022 Telephone encounter Note 2PM on jan 05 - this will be a double book yellow slot [facility] 12-19-2022 Telephone encounter Note He is doing well. [facility] 12-19-2022 Telephone encounter Note [facility]. ( Wound Center ) Patient was discharged 12/12/2022. [facility] 12-19-2022 Telephone encounter Note When was he discharged? Where was he admitted? I don't see any documentation of an admission? We will schedule him next week once I Have more information [facility] 12-18-2022 Telephone encounter Note Name of caller: Alexis Contact phone number: [phone] Relationship to Patient: patient Provider: Dr. Ashley Practice: [place] Chief Complaint/Reason for Call: Please assist with scheduling a JAYE appt, the pt was discharge 8/ Best time of day caller can be reached: any Patient advised that office/PCP has 24-48 business hours to return their call: N/A [facility] 12-08-2022 Telephone encounter Note Noted [facility] 12-08-2022 Miscellaneous Notes Noted S: the patient is calling the [facility] about a fever B: yesterday A: the patient reports having a fever, fatigue, headache and general body aches. He states last night at 8PM he had a fever of 103.7*F. his fever came down to 101*F around 1AM and today is normal. He states he still has some fatigue, intermittent headaches and generalized body aches noted. He states he has any ongoing sore on his foot that he is seen at another office for but this does not have any redness or signs of infection. R: the patient is scheduled via POD scheduling today at 3PM with Dr. Chaney. Insurance confirmed. He will call back if he has worsening symptoms or develops any other symptoms or concerns. Reason for Disposition Patient wants to be seen Protocols used: [id number] documented in this encounter [facility] 12-08-2022 Telephone encounter Note S: the patient is calling the [facility] about a fever B: yesterday A: the patient reports having a fever, fatigue, headache and general body aches. He states last night at 8PM he had a fever of 103.7*F. his fever came down to 101*F around 1AM and today is normal. He states he still has some fatigue, intermittent headaches and generalized body aches noted. He states he has any ongoing sore on his foot that he is seen at another office for but this does not have any redness or signs of infection. R: the patient is scheduled via POD scheduling today at 3PM with Dr. Chaney. Insurance confirmed. He will call back if he has worsening symptoms or develops any other symptoms or concerns. Reason for Disposition Patient wants to be seen Protocols used: [id number] [facility] 09-05-2022 Note Faxed referral, demo and summary of care to [facility] as requested [facility] 06-28-2020 Note Patient Outreach ([place]) ALEXIS LACKEY ([id number]) 1975 M Date Time Provider Department 06/28/20 ANDREINA, GREER PAYAN During your visit today, we recorded the following information about you: Allergies As of Date: 06/28/2020 Noted Allergy Reaction AUGMENTIN (AMOXICILLIN-POT CLAVUL*06/16/2006 4 - Hives PENICILLINS 07/07/2016 4 - Hives Date Reviewed: 06/09/2019 Reviewed by: Jani Welsh MA - Fully Assessed Order(s):SARS-COVID VACCINE 1ST DOSE APPT [[id number]] Order #: [id number] FUTURE Prescriptions as of 06/28/2020 Sig: FREESTYLE SCOTT 14 DAY READER 1 Dose Pack by subcutaneous (* Patient not taking: Reported on 05/17/2019 FREESTYLE SCOTT 14 DAY SENSOR* 1 Applicator by subcutaneous * Patient not taking: Reported on 05/17/2019 PEN NEEDLE, DIABETIC 32 GAUGE* Use up to 3 times daily as ne* Patient not taking: Reported on 05/17/2019 FREESTYLE PRECISION JULIANNE STRIPS Use to check blood sugar once* Patient not taking: Reported on 05/17/2019 BLOOD-GLUCOSE METER 1 Device. BLOOD SUGAR DIAGNOSTIC STRIPS 1 Each. PEN NEEDLE, DIABETIC 31 GAUGE* Use as directed 5 times daily. Patient not taking: Reported on 05/17/2019 BLOOD SUGAR DIAGNOSTIC STRIPS Use as instructed Patient not taking: Reported on 05/17/2019 FENOFIBRATE 160 MG TABLET Take 1 tablet by mouth once d* Patient not taking: Reported on 06/09/2019 Problem List As Of Date 06/28/2020 Noted Resolved Type 2 diabetes mellitus, uncontrolled (HCC) [E*09/28/2004 More... Hypertension [I10] 09/28/2004 Mixed hyperlipidemia [E78.2] 06/13/2005 Insulin long-term use (HCC) [Z79.4] 03/09/2014 Class 2 severe obesity with serious comorbidity*03/09/2014 Low serum vitamin D [R79.89] 09/13/2014 Obstructive sleep apnea syndrome [G47.33] 08/25/2018 Nonalcoholic steatohepatitis (FRANK) [K75.81] 12/15/2018 GERD with apnea [K21.9, R06.81] 12/26/2018 Morbid obesity (HCC) [E66.01] 12/26/2018 Uncontrolled type 2 diabetes mellitus with hype*12/26/2018 Essential hypertension [I10] 12/26/2018 Obesity, Class II, BMI 35-39.9 [E66.9] 03/31/2019 Obesity, Class I, BMI 30-34.9 [E66.9] 05/18/2019 Fever and chills [R50.9] 05/30/2019 06/02/2019 Encounter Status:Closed by WINIFRED ALFARO on 07/02/20 [facility] in this encounter [facility] Diagnosis Deformity of left foot- Primary Ulcer of left foot with other severity (HCC) [facility] Diagnosis Benign essential HTN- Primary [facility]* Diagnosis Type 2 diabetes mellitus with hyperglycemia, without long-term current use of insulin (HCC)- Primary Pre-op evaluation Diabetic ulcer of left midfoot associated with type 2 diabetes mellitus, unspecified ulcer stage (HCC) documented [facility]* Diagnosis Type 2 diabetes mellitus with hyperglycemia, without long-term current use of insulin (HCC)- Primary Pre-op evaluation Diabetic ulcer of left midfoot associated with type 2 diabetes mellitus, unspecified ulcer stage (HCC) [facility] Consultation (Routine) - Authorized Specialty Diagnoses / Procedures Referred By Casey langston Referred To Contact Orthopedic Surgery Diagnoses Deformity of left foot Ulcer of left foot with other severity (HCC) Vicenta Rai, DO [address] [place] [address] [facility] [address] [place] [address] Referral ID Status Reason Start Date Expiration Date Visits Requested Visits Authorized [id number] Authorized Specialty Services Required 01/05/2023 01/05/2024 1 1 [facility] Consultation (Routine) - Pending Review Specialty Diagnoses / Procedures Referred By Casey langston Referred To Contact Orthopedic Surgery Diagnoses Deformity of left foot Ulcer of left foot with other severity (HCC) Vicenta Rai DO [address] [facility] [address] [place] [address] Referral ID Status Reason Start Date Expiration Date Visits Requested Visits Authorized [id number] Pending Review Specialty Services Required 3 03/01/2024 1 1 Scheduling Instructions [facility] patient[facility] request [facility] Summary Purpose Family History No Family History Records FoundNo Family History Records Found Advance Directives No Advanced Directives Records FoundNo Advanced Directives Records Found Reason for Referral Specialty Diagnoses / Procedures Referred By Casey langston Referred To Contact Diagnoses Type 2 diabetes mellitus with hyperglycemia, without long-term current use of insulin (HCC) Leslye Molina PA-C [address] [facility] [address] [place] [address] Referral ID Status Reason Start Date Expiration Date V isits Requested Visits Authorized [id number] Pending Review 1 1 Additional Source Comments (unrecognized sect ion and content) No Status Records FoundNo Status Records Found INFORMATION SOURCE (unrecogn ized section and content) DATE CREATED AUTHOR AUTHOR'S ORGANIZ ATION 05/02/2023 [facility] Reason for Visit (unrecogniz ed section and content) Reason Comments Med Refill Reason Onset Date Comments Appointment 12/18/2022 Reason Comments Hospital Follow-up Reason Onset Date Comments referral 02/27/2023 Reason Comments 6 Month Follow-up Reason Onset Date Comments Medical Clearance Form 03/18/2023 03/18/23 Mykel calling to ask if the office /provider have received a Fax [facility] for MEDICAL CLEARANCE needed prior to pt outpatient procedure pls advise call if needed Reason Comments Foot Pain Left foot surgeries clearance Care Teams (unrecognized sec tion and content) Podiatric Medicine Doctor Relationship Specialty Start Date End Date Vicneta Rai DO [address] [place] [id number] PCP - General 09/29/18 Podiatric Medicine Doctor Relationship Specialty Start Date End Date Vicenta Rai DO [address] [place] [id number] PCP - General 09/29/18 Podiatric Medicine Doctor Relationship Specialty Start Date End Date Vicenta Rai DO [address] [place] [id number] PCP - General 09/29/18 Podiatric Medicine Doctor Relationship Specialty Start Date End Date Vicenta Rai DO [address] [place] [id number] PCP - General 09/29/18 Podiatric Medicine Doctor Relationship Specialty Start Date End Date Vicenta Rai DO [address] [place] [id number] PCP - General 09/29/18 Podiatric Medicine Doctor Relationship Specialty Start Date End Date Vicenta Rai DO [address] [place] [address] [address] [place] [address] PCP - General 09/29/18 Podiatric Medicine Doctor Relationship Specialty Start Date End Date Vicenta Rai DO [address] [place] [address] [address] [place] [address] PCP - General 09/29/18 Podiatric Medicine Doctor Relationship Specialty Start Date End Date Vicenta Rai DO [address] [place] [address] [address] [place] [address] PCP - General 09/29/18 Podiatric Medicine Doctor Relationship Specialty Start Date End Date Rai Vicenta Mitchell DO [address] [place] [address] PCP - General 09/29/18 FOR RECORDS PERTAINING TO PATIENTS WHO ARE OR HAVE BEEN ENROLLED IN A CHEMICAL DEPENDENCY/SUBSTANCEABUSE PROGRAM, SOME INFORMATION MAY BE OMITTED. This clinical summary was aggregated from multiple sources. Caution should be exercised in using it in the provision of clinical care. This summary normalizes information from multiple sources, and as a consequence, information in this document may materially change the coding, format and clinical context of patient data. In addition, data may be omitted in some cases. CLINICAL DECISIONS SHOULD BE BASED ON THE PRIMARY CLINICAL RECORDS. [facility] provides no warranty or guarantee of the accuracy or completeness of information in this document.
== END | disposition home or self-care (01) ==
PROVIDERS: PCP Nurse Practitioner; Visit Provider Nurse Practitioner
DX: L02.612 Cutaneous abscess of left foot (principal); M86.9 Osteomyelitis, unspecified
CPT/HCPCS: 87070; 87075; 87077; 87186; 87205

== ENCOUNTER 2023-05-07 05:53 | Day surgery (SDC) | payer OTHER, SELFPAY ==
--- OUTSIDE RECORDS SUMMARY | 2023-05-07 05:57 | XMS RPT_ITS | CCD ---
Author Name Unknown Address [address] [place] [address] Organization [facility] Care Team Providers Care Return Agent Airport Name Role Phone Vicenta Rai DO Primary Care Provider VICENTA RAI Attending Unavailable VICENTA RAI Primary Care Unavailable VICENTA RAI Attending Unavailable VICENTA RAI Primary Care Unavailable VICENTA RAI Attending Unavailable VICENTA RAI Primary Care Unavailable LESLYE MOLINA Attending Unavailable VICENTA RAI Primary Care Unavailable Allergies Allergy Classification Reported Allergen(s) Allergy Type Date of Onset Reaction(s) Facility (11 sources) Penicillins Drug Intolerance 07-07-2016 [facility] (11 sources) Amoxicillin-Pot Clavulanate Drug Allergy 06-16-2006 [facility] Medications Current Medications Medication Drug Class(es) [...] 80 mm[Hg] Leslye Barro PA-C Work Phone: [employer] 04-28-2023 08:22-0500 Systolic blood pressure 144 mm[Hg] Leslye Barro PA- C Work Phone: [employer] 04-28-2023 07:58-0500 Body height 195.6 cm Leslye Molina PA-C Work Phone: [employer] 04-28-2023 07:58-0500 Body mass index (BMI) [Ratio] 31.07 kg/m2 Leslye Barro PA-C Work Phone: [facility] 04-28-2023 07:58-0500 Body temperature 98.1 [degF] Leslye Barro PA-C Work Phone: [facility] 04-28-2023 07:58-0500 Body weight 118.84 kg Lselye Molina PA-C Work Phone: [facility] 04-28-2023 07:58-0500 Heart rate 69 /min Leslye Barro PA-C Work Phone: [employer] 04-28-2023 07:58-0500 SaO2% (BldA) [Mass fraction] 99 % Leslye Barro PA-C Work Phone: [facility] 02-27-2023 08:49-0500 Diastolic blood pressure 88 mm[Hg] Vicenta Rai DO Work Phone: [facility] 02-27-2023 08:49-0500 Systolic blood pressure 160 mm[Hg] Vicenta Rai DO Work Phone: [facility] 02-27-2023 08:18-0500 Body height 195.6 cm Vicenta Rai DO Work Phone: [facility] 02-27-2023 08:18-0500 Body mass index (BMI) [Ratio] 30.95 kg/m2 Vicenta Rai DO Work Phone: [employer] 02-27-2023 08:18-0500 Body weight 118.39 kg Vicenta Rai DO Work Phone: [facility] 02-27-2023 08:18-0500 Heart rate 60 /min Vicenta Rai DO Work Phone: [facility] 02-27-2023 08:18-0500 SaO2% (BldA) [Mass fraction] 99 % Vicenta Rai DO Work Phone: [facility] 01-05-2023 14:06-0400 Body height 195.6 cm Vicenta Rai DO Work Phone: [facility] 01-05-2023 14:06-0400 Body mass index (BMI) [Ratio] 29.76 kg/m2 Vicenta Rai DO Work Phone: [facility] 01-05-2023 14:06-0400 Body weight 113.85 kg Vicenta Rai DO Work Phone: [facility] 01-05-2023 14:06-0400 Diastolic blood pressure 81 mm[Hg] Vicenta Rai DO Work Phone: [facility] 01-05-2023 14:06-0400 Heart rate 54 /min Vicenta Rai DO Work Phone: [facility] 01-05-2023 14:06-0400 SaO2% (BldA) [Mass fraction] 98 % Vicenta Rai DO Work Phone: [facility] 01-05-2023 14:06-0400 Systolic blood pressure 134 mm[Hg] Vicenta Rai DO Work Phone: [facility] Encounters Encounter Date Encounter Type Care Provider Facility Start: 04-28-2023 End: 04-28-2023 ambulatory LESLYE MOLINA [facility] Start: 04-28-2023 End: 04-28-2023 Encounter for other preprocedural examination LESLYE MOLINA [facility] Start: 04-28-2023 End: 04-28-2023 Office outpatient visit 15 minutes Leslye Molina PA-C Work Phone: [facility] Procedures Date [...] or older (1 - 1-dose 60+ series) [facility] Start: 08-01-2026 DTaP/Tdap/Td Vaccine s (2 - Td or Tdap) DTaP/Tdap/Td Vaccines (2 - Td or Tdap) [facility] Start: 2024 Zoster Vaccines (1 of 2) Zoster Vacc pedro luis (1 of 2) [facility] Start: 04-28-2024 Hemoglobin A1c measurement Diabetes: Hemoglobin A1C [facility] Start: 02-28-2024 Hemoglobin A1c measurement Diabetes: Hemoglobin A1C [facility] Start: 02-28-2024 Lipid panel Lipid Panel [facility] Start: 06-03-2023 Glaucoma screening Diabetes: R etinopathy Screening [facility] Start: 04-28-2023 End: 04-28-2024 CBC W Auto Differential panel - Blood CBC auto differential Lab Routine Type 2 diabetes mellitus with hyperglycemia, without long-term current use of insulin (HCC) Pre-op evaluation Expected: 04/28/2023 (Approximate), Expires: 04/28/2024 [facility] Work Phone: Immunizations Immunization Date Immunization Notes Care Provider Fa anicetoty 08-18-2020 Pfizer SARS-CoV-2 Vaccination Melissa Buckley RN [facility] 07-28-2020 Pfizer SARS-CoV-2 Vaccination Melissa Buckley RN [facility] Payers Date Payer Category Payer Unknown [facility] ARE [id number] 2023-Present [address] [place] [address] Commercial [id number] 2023 Unknown [id number] 2022 Private Health Insurance [id number] 2022 Private Health Insurance [id number] 2022 Private Health Insurance [id number] Social History Date Type Detail Facility Tobacco smoking status NHIS Never smoked tobacco [facility] Start: 09-05-2022 End: 04-28-2023 Alcohol intake Current non-drinker of alcohol (finding) [facility] Start: 09-05-2022 End: 04-28-2023 History of Social function [facility] Start: 09-05-2022 End: 04-28-2023 Tobacco use panel [facility] Start: 1975 Sex Assigned At Not on file [facility] Start: 02-06-2022 Gender identity Identifies as male gender (finding) [facility] Start: 02-06-2022 Sexual orientation Heterosexual (fin ding) [facility] Start: 12-26-2022 End: 01-05-2023 Exposure to SARS-CoV-2 (event) Not sure [facility] Start: 1975 Sex Assigned At Male [facility] Clinical Notes 06-28-2020 to 04-28-2023 Assessment & Plan Note - Leslye Molina PA-C - 04/28/2023 8:52 AM ESTAssessment & Plan Note - ZHANNA Thompson 04/28/2023 8:52 AM Jackie Molina PA-C - 04/28/2023 8:00 AM EST Note Date & Type Note Facility 04-28-2023 Note Addended by: LESLYE MOLINA on: 04/29/2023 07:52 AM Modules accepted: Level of Service [facility] 04-28-2023 Evaluation + Plan note Associated Problem(s): [...] have delayed primary closure of the wound [facility] 04-28-2023 Miscellaneous Notes Associated Problem(s): Diabetes [...] of the wound documented in this encounter [facility] 04-28-2023 Miscellaneous Notes Associated Problem(s): Diabetes [...] Level of Service documented in this encounter [facility] 04-28-2023 History of Presen t illness Narrative Images from the original note were not included. [facility] [address] [facility] [address] Dept: [phone] Dept Loc: [phone] Visit type: Established Patient Reason for Visit: [...] is considered below average based on the [employer] risk calculation for surgery. [...] by mouth. 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 documented in this encounter [facility] 04-28-2023 History of Presen t illness Narrative Images from the original note were not included. [facility] [address] [place] [address] [address] [facility] [address] Dept: [phone] Dept Loc: [phone] Visit type: Established Patient Reason for Visit: Foot Pain (Left foot surgeries clearance ) Assessment and Plan 1. Type 2 diabetes mellitus with hyperglycemia, without long-term current use of insulin ([facility]) Assessment & Plan: - Chronic stable poorly [...] is considered below average based on the [employer] risk calculation for surgery. [...] by mouth. 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 documented in this encounter [facility] 04-28-2023 Note Addended by: LESLYE MOLINA on: 04/29/2023 07:52 AM Modules accepted: Level of Service [facility] 04-21-2023 Note Pt cancelled appt wi Dr Rai. Will check with pt on referrals [facility] 04-08-2023 Note Spoke with Ruben mitchell [facility] [place] [place]. I let her know Alexis No Showed for appointment 04/03/2023 for Medical Clearance. Pt will need to reschedule. Dr Rai will be out of office. Pt can also do a appointment with our PA Leslye Molina. [facility] 04-08-2023 Telephone encounter Note Spoke with Ruben from [facility] [place] [place]. I let her know Alexis No Showed for appointment 04/03/2023 for Medical Clearance. Pt will need to reschedule. Dr Rai will be out of office. Pt can also do a appointment with our PA Leslye Molina. [facility] 04-08-2023 Miscellaneous Notes Spoke with Ruben from [facility] [place] [place]. I let her know Alexis No Showed for appointment 04/03/2023 for Medical Clearance. Pt will need to reschedule. Dr Rai will be out of office. Pt can also do a appointment with our PA Leslye Molina. 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[place] Provider: Cecelia Practice: Jit[facility] Camacho Chief Complaint/Reason [...] [facility] Contact phone number: [phone] Relationship to Patient: [facility] Provider: Dr Rai Practice: [facility] location Chief Complaint/Reason for Call: 03/18/23 [...] their call: Yes documented in this encounter [facility] 04-08-2023 Telephone encounter Note Name of caller: Ruben Contact phone number: [phone] 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 Advised her that the patient does not have an appointment, she said that they may have to cancel his surgery. Best time of day caller can be reached: any Patient advised that office/PCP has 24-48 business hours to return their call: No [facility] 04-02-[address] Rai. Pt has an appt with you tomorrow. One for GI and one for ophthalmology. Wondering if pt still wants the referrals open. Please advise and send back to me. Thank you for your help. Yisel POD coordinator [facility] 03-18-2023 Note Called [facility] put pap ers on Dr Rai desk. They wants labs did not say which kind ? They want patient to have a face to face medical clearance. [facility] 03-18-2023 Telephone encounter Note Called [facility] put papers on Dr Rai desk. They wants labs did not say which kind ? They want patient to have a face to face medical clearance. [facility] 03-18-2023 Telephone encounter Note Name of caller: [facility] Contact phone number: [phone] Relationship to Patient: [facility] Provider: Dr Rai Practice: [facility] location Chief Complaint/Reason for Call: 03/18/23 [facility] calling to ask if the office /provider have received a Fax from [facility] for MEDICAL CLEARANCE needed prior to pt outpatient procedure pls advise call if needed Best time of day caller can be reached: PM Patient advised that office/PCP has 24-48 business hours to return their call: Yes [facility] 03-02-2023 Telephone encounter Note ordered [facility] 03-02-2023 Miscellaneous Notes ordered Pt says [...] mention he needed a referral to an orthopedic/lean manager? documented in this encounter [facility] 02-27-2023 Note Does he need a refer ral to someone specific? I believe he has been seeing someone [facility] 02-27-2023 Note When patient was denise cking out he said he forgot to mention he needed a referral to an orthopedic/lean manager? [facility] 02-27-2023 Telephone encounter Note Pt says you referred him to Dr Pitts previously but it takes too long to get in. Thinking if their is someone in [facility] he would like to go their. [facility] 02-27-2023 Telephone encounter Note Does he need a referral to someone specific? I believe he has been seeing someone [facility] 02-27-2023 Telephone encounter Note When patient was checking out he said he forgot to mention he needed a referral to an orthopedic/lean manager? [facility] 02-27-2023 History of Presen t illness Narrative Images from the original note were not included. [facility] [address] [facility] [address] Visit type: Established Patient Reason [...] by mouth. ergocalciferol (Vitamin D2) 1.25 MG (41946 UT) capsule Take 1 capsule (1.25 mg) [...] 03/04/2023 5:04 PM documented in this encounter [facility] 01-05-2023 Note Addended by: VICENTA RAI on: 01/13/2023 02:13 PM Modules accepted: Level of Service [facility] 01-05-2023 History of Presen t illness Narrative Images from the original note were not included. [facility] [address] [place] [phone] Post-Discharge Hospital Follow Up Date of [...] Ulcer of left foot with other severity ([facility]) - [facility] Foot/Ankle Lower Extremities - Ro 3. Type 2 diabetes mellitus with hyperglycemia, without long-term current use of insulin ([facility]) (HCC) Chronic, well controlled on current medications. [...] , Rfl: ergocalciferol (Vitamin D2) 1.25 MG (59547 UT) capsule, Take 1 capsule (1.25 mg) [...] Judgment: Judgment normal. documented in this encounter [facility] 01-05-2023 Miscellaneous Notes Addended by: VICENTA RAI on: 01/13/2023 02:13 PM Modules accepted: Level of Service documented in this encounter [facility] 01-05-2023 Note Addended by: VICENTA RAI on: 01/13/2023 02:13 PM Modules accepted: Level of Service [facility] 12-23-2022 Telephone encounter Note Last OV:09/05/22 Scheduled: 01/05/23 [facility] 12-23-2022 Miscellaneous Notes Last OV:09/05/22 Scheduled: 01/05/23 documented in this encounter [facility] 12-23-2022 Telephone encounter Note Patient aware [facility] 12-23-2022 Miscellaneous Notes Patient aware 2PM on jan 05 - this will be a double book yellow slot He is doing well. [facility]. ( Wound Center ) Patient was discharged 12/12/2022. When was he discharged? Where was he admitted? I don't see any documentation of an admission? We will schedule him next week once I Have more information Name of caller: Alexis Contact phone number: [phone] Relationship to Patient: patient Provider: Dr. Ashley Practice: [place] Chief Complaint/Reason for Call: Please assist with scheduling a JAYE appt, the pt was discharge 8/ Best time of day caller can be reached: any Patient advised that office/PCP has 24-48 business hours to return their call: N/A documented in this encounter [facility] 12-23-2022 Telephone encounter Note 2PM on jan 05 - this will be a double book yellow slot [facility] 12-19-2022 Telephone encounter Note He is doing well. [facility] 12-19-2022 Telephone encounter Note [facility]. ( Wound Center ) Patient was discharged 12/12/2022. [facility] 12-19-2022 Telephone encounter Note When was he discharged? Where was he admitted? I don't see any documentation of an admission? We will schedule him next week once I Have more information [facility] 12-18-2022 Telephone encounter Note Name of caller: Alexis Contact phone number: [phone] Relationship to Patient: patient Provider: Dr. Ashley Practice: [place] Chief Complaint/Reason for Call: Please assist with scheduling a JAYE appt, the pt was discharge 8/ Best time of day caller can be reached: any Patient advised that office/PCP has 24-48 business hours to return their call: N/A [facility] 12-08-2022 Telephone encounter Note Noted [facility] 12-08-2022 Miscellaneous Notes Noted S: the patient is calling the [facility] about a fever B: yesterday [...] Patient wants to be seen Protocols used: [id number] documented in this encounter [facility] 12-08-2022 Telephone encounter Note S: the patient is calling the [facility] about a fever B: yesterday [...] Patient wants to be seen Protocols used: [id number] [facility] 09-05-2022 Note Faxed referral, demo and summary of care to [facility] as requested [facility] 06-28-2020 Note Patient Outreach ([place]) ALEXIS LACKEY ([id number]) 1975 M Date Time Provider Department 06/28/20 ANDREINA, GREER PAYAN During your visit today, we recorded the following information about you: Allergies As of Date: 06/28/2020 Noted Allergy Reaction AUGMENTIN (AMOXICILLIN-POT CLAVUL*06/16/2006 4 - Hives PENICILLINS 07/07/2016 4 - Hives Date Reviewed: 06/09/2019 Reviewed by: Jani Welsh MA - Fully Assessed Order(s):SARS-COVID VACCINE 1ST DOSE APPT [[id number]] Order #: [id number] FUTURE Prescriptions as of 06/28/2020 Sig: FREESTYLE [...] Encounter Status:Closed by WINIFRED ALFARO on 07/02/20 [facility] documented in this encounter [facility] Diagnosis Deformity of left foot- Primary Ulcer of left foot with other severity (HCC) documented in this encounter [facility]* Diagnosis Benign essential HTN- Primary documented in this encounter [facility]* Diagnosis Type 2 diabetes mellitus with hyperglycemia, without long-term current use of insulin (HCC)- Primary Pre-op evaluation Diabetic ulcer of left midfoot associated with type 2 diabetes mellitus, unspecified ulcer stage (HCC) documented in this encounter [facility]* Diagnosis Type 2 diabetes mellitus with hyperglycemia, without long-term current use of insulin (HCC)- Primary Pre-op evaluation Diabetic ulcer of left midfoot associated with type 2 diabetes mellitus, unspecified ulcer stage (HCC) [facility] Consultation (Routine) - Authorized Specialty Diagnoses / Procedures Referred By Casey langston Referred To Contact Orthopedic Surgery Diagnoses Deformity of left foot Ulcer of left foot with other severity (HCC) Vicenta Rai, DO [address] [place] [address] [facility] [address] [place] [address] Referral ID Status Reason Start Date Expiration Date Visits Requested Visits Authorized [id number] Authorized Specialty Services Required 01/05/2023 01/05/2024 1 1 [facility] Consultation (Routine) - Pending Review Specialty Diagnoses / Procedures Referred By Casey langston Referred To Contact Orthopedic Surgery Diagnoses Deformity of left foot Ulcer of left foot with other severity (HCC) Vicenta Rai DO [address] [place] [address] Referral ID Status Reason Start Date Expiration Date Visits Requested Visits Authorized [id number] Pending Review Specialty Services Required 3 03/01/2024 1 1 Scheduling Instructions [facility] per patient's request [facility] Summary Purpose Family History No Family History Records FoundNo Family History Records Found Advance Directives No Advanced Directives Records FoundNo Advanced Directives Records Found Reason for Referral Specialty Diagnoses / Procedures Referred By Casey langston Referred To Contact Diagnoses Type 2 diabetes mellitus with hyperglycemia, without long-term current use of insulin (HCC) Leslye Molina PA-C [address] [place] [address] Referral ID Status Reason Start Date Expiration Date V isits Requested Visits Authorized [id number] Pending Review 1 1 Additional Source Comments (unrecognized sect ion and content) No Status Records FoundNo Status Records Found INFORMATION SOURCE (unrecogn ized section and content) DATE CREATED AUTHOR AUTHOR'S ORGANIZ ATION 05/02/2023 [facility] Reason for Visit [...] Care Teams (unrecognized sec tion and content) Return Agent Airport Relationship Specialty Start Date End Date Vicenta Rai DO [address] [place] [address] PCP - General 09/29/18 Return Agent Airport Relationship Specialty Start Date End Date Vicenta Rai DO [address] [place] [address] PCP - General 09/29/18 Return Agent Airport Relationship Specialty Start Date End Date Vicenta Rai DO [address] [place] [id number] PCP - General 09/29/18 Return Agent Airport Relationship Specialty Start Date End Date Vicenta Rai DO [address] [place] [id number] PCP - General 09/29/18 Return Agent Airport Relationship Specialty Start Date End Date Vicenta Rai DO [address] [place] [id number] PCP - General 09/29/18 Return Agent Airport Relationship Specialty Start Date End Date Vicenta Rai DO [address] [place] [address] [address] [place] [address] PCP - General 09/29/18 Return Agent Airport Relationship Specialty Start Date End Date Vicenta Rai DO [address] [place] [address] [address] [place] [address] PCP - General 09/29/18 Return Agent Airport Relationship Specialty Start Date End Date Vicenta Rai DO [address] [place] [address] [address] [place] [address] PCP - General 09/29/18 Return Agent Airport Relationship Specialty Start Date End Date Rai Vicenta Mitchell DO [address] [place] [address] PCP - General 09/29/18 FOR RECORDS PERTAINING [...] BE BASED ON THE PRIMARY CLINICAL RECORDS. [facility] [employer] [facility]. provides no warranty or guarantee of the accuracy or completeness of information in this document.
[2023-05-07] MEDS: Lactated Ringers 1,000 ML 15 ML IV (06:28)
[2023-05-07 06:29] VITALS: BP 125/72; PULSE 53; RESP 18; TEMP 36.1; O2SAT 96; BMI 31.4
--- NOTE | 2023-05-07 06:30 | RAD_ITS ---
STUDY: X-RAY - LEFT FOOT CLINICAL: Male, 47 years old. Bone biopsy. Intraoperative digital documentation views. TECHNIQUE: 4 intraprocedural digital documentation view(s) of the foot. COMPARISON: None. FINDINGS: 4 focal intraoperative digital documentation views of the mid foot. A total of 20 images were acquired and 4 saved. Total exposure time 34 seconds and longest exposure time 9 seconds. Total DAP 5.8230 cGycm2 Total Air Kerma 0.3466 mGy. RAD/Foot 2 Views IMPRESSION: Intraoperative digital documentation views as described. Electronically Signed: Sid Boyle MD at 13:00 EST ,
[2023-05-07 06:55] LABS: Bedside Glucose 207 mg/dL (74-106)
[2023-05-07] MEDS: Clindamycin 900 MG/50 ML BAG 75 MG IV (07:30)
[2023-05-07] MEDS: Bupivacaine Mpf 0.5% 30 ML VIAL (07:30)
--- NOTE | 2023-05-07 07:30 | BON_PTH ---
PATHOLOGY RESULTS PATIENT: ALEXIS LACKEY [place] [facility] [place][id number] AGE/SX: 47/M ROOM: RE05/07/[address]: Dr. Isaac Lucero DPM : 1975 BED: DIS: 05/07/2023 SPEC #: [id number] RECD: 05/07/23 11:42 STATUS: LEAH HADLEY #: [id number] SMILEY: 05/07/23 07:[address]: Isaac Lucero DEPT: SURGICAL PATHOLOGY RECD BY: Melissa Gongora ENTERED: 05/07/23 11:42 SP TYPE: Bone OTHR DR: SCOTT FREED DO Tissues: Foot, NOS Procedures: Decalcification bone/plaque Surgery Specimen Level IV HEADER OPERATION: Left foot plantar planning, bone biopsy PRE-OP DIAGNOSIS: Diabetic foot ulcer, left foot pain TISSUE SUBMITTED: Bone left foot, fifth metatarsal MICROSCOPIC DIAGNOSIS Bone of left fifth metatarsal, excision: Chronic reparative and reactive change with bone remodeling. AM:josé antonio 05/13/2023 MICROSCOPIC DESCRIPTION Slides are reviewed. GROSS DESCRIPTION Received in fixative is one container labeled with the patient's name and designated Bone left foot, fifth metatarsal. The specimen consists of two pieces of bone measuring in aggregate 3.0 x 2.0 x 0.4 cm. The entire specimen is submitted in one cassette after decalcification. / SJ:josé antonio 05/07/2023 TC:5 CPT: 31163, 11024
[2023-05-07 08:55] VITALS: BP 116/69; BP 125/72; PULSE 48; RESP 16; TEMP 36.1; O2SAT 97
[2023-05-07 09:00] VITALS: BP 120/73; BP 125/72; PULSE 48; RESP 18; O2SAT 97
--- NOTE | 2023-05-07 09:06 | PCM.OPRPT ---
Problems Associated Problem List Diagnoses (1) Charcot's joint, left ankle and foot: (2) Type 2 diabetes mellitus with diabetic polyneuropathy: (3) Short Achilles tendon (acquired), left ankle: Report of Operation Date of Procedure: 05/07/23 Pre-Operative Diagnosis: Chronic left diabetic foot ulceration in setting of Charcot foot and equinus deformity left lower extremity Post-Operative Diagnosis: Same Surgery/Procedure Performed:: 1. Tendo Achilles lengthening left lower extremity 2. Plantar planing with 6 excision plantar fifth metatarsal base for bone biopsy and culture left lower extremity 3. Wound debridement with graft preparation and application of skin substitute graft (BioSkin) left lower extremity 4. Application of AO splint left lower extremity Description of Surgical Findings:: Patient has chronic left diabetic foot wound in setting of neuropathic fracture of the left foot. Patient radiographically has a plantar convexity noted to the plantar fifth metatarsal base. This is the apex for wound formation confirmed on fluoroscopic imaging within the case. Recent cultures demonstrate growth of Enterococcus and gram-positive bridgett. Patient has been on p.o. antibiotics for several days. Due to chronic nature concern for life and limb threatening infection decision was made for plantar planing tendo Achilles lengthening wound debridement with graft application. Surgeon: Isaac Lucero chocolate refining roller: None (lexa castrejon) Type of Anesthesia: General Special Medications: 10 cc half percent Marcaine plain Specimen's removed: Left fifth metatarsal base Drains: None Estimated Blood Loss (mL): Minimal Description of Procedure: Patient brought back to the operating room placed comfortably in supine position on operating room table. Patient induced under MAC anesthesia. Well-padded thigh tourniquet applied to left lower extremity. Left lower extremity scrubbed prepped draped using typical aseptic fashion. Prior to prep a local infiltration block was performed to the plantar fifth metatarsal base wound. Once cleared by anesthesia left lower extremity was elevated exsanguinated tourniquet was inflated to 300 mmHg. Procedure #1: Tendo Achilles lengthening left lower extremity The Achilles tendon was marked out and it from the distal insertion proximally 3 hemisections were performed along the just proximal to the insertion and just distal to the musculotendinous junction with 2 medial hemisections and 1 lateral hemisection using a #11 blade percutaneously. There is noted to be approximately increase in dorsiflexor range of motion from less than 10 degrees dorsiflexion to 12 degrees dorsiflexion after percutaneous tendo Achilles lengthening. Incisional sites were flushed and closed with simple interrupted 3-0 Prolene. Procedure #2: Using combination fluoroscopic imaging and a [place] a plantar prominence was noted to the plantar fifth metatarsal base. A direct lateral incision was taken down the level of bone avoiding any neurovascular structures and the abductor digiti minimi muscle and tendon plantarly as well as the sural nerve and peroneal tendons dorsally and proximally. These were all protected with blunt retraction. Sagittal saw was used to excise the plantar prominence. Adequate excision was noted upon fluoroscopic imaging. Incisional site was flushed with copious amounts normal sterile saline. Fifth metatarsal base was sent for pathology and culture. Incision was closed with 2-0 Vicryl to deep and subcutaneous layers using simple buried technique. Horizontal mattress skin closure performed with 3-0 Prolene. Procedure #3: Wound bed debridement with graft preparation application of skin substitute Predebridement wound was 0.5 x 0.5 cm with significant periwound callus and moderate drainage. Postdebridement the wound was 1.0 x 1.0 x 0.2 cm in depth. Wounds demonstrated a clean granular base with no deep probing undermining. Wound is full-thickness down to level subcutaneous tissue. Wound was debrided with bone nippers. Wound was flushed with copious amounts normal sterile saline. Swab cultures taken of the wound. Application of 2 x 4 cm BioSkin graft was applied to the directly to the wound site and moistened with saline gauze. Overlying Adaptic Steri-Strips applied. Procedure #4: Application of AO splint left lower extremity All incision was dressed with Adaptic Betadine 4 x 4's Kerlix and a well-padded AO splint. Adequate padding noted. Rectus alignment of the foot relative to the ankle. Grafts/Implants Used: [employer] BioSkin 2 x 4 graft
[2023-05-07 09:11] VITALS: BP 125/72; BP 130/71; PULSE 49; RESP 16; TEMP 35.9; O2SAT 98
[2023-05-07] MEDS: oxyCODONE 5 MG Tablet PO (09:44)
[2023-05-07] MEDS: Acetaminophen 500 MG Tablet PO (09:56)
[2023-05-07 11:00] VITALS: BP 125/72; BP 127/73; PULSE 49; RESP 16; TEMP 36.6; O2SAT 98
== END 2023-05-07 11:28 | disposition home or self-care (01) ==
LOC: SDC 05:54 → AC 05:56
PROVIDERS: PCP Family Medicine; Referring Provider Podiatrist; Visit Provider Podiatrist
PROC: (CPT 27685; principal; 2023-05-07 07:15)
DX: E11.621 Type 2 diabetes mellitus with foot ulcer (principal); L97.429 Non-pressure chronic ulcer of left heel and midfoot with unspecified severity; E11.610 Type 2 diabetes mellitus with diabetic neuropathic arthropathy; E11.42 Type 2 diabetes mellitus with diabetic polyneuropathy; E11.65 Type 2 diabetes mellitus with hyperglycemia; Z98.84 Bariatric surgery status; M10.9 Gout, unspecified; E78.5 Hyperlipidemia, unspecified; I10 Essential (primary) hypertension; E66.9 Obesity, unspecified; Z87.891 Personal history of nicotine dependence; M67.02 Short Achilles tendon (acquired), left ankle
CPT/HCPCS: 27685; 01470; 73620; 76000; 82962; 87070; 87075; 87077; 87102; 87186; 87205; 87206; 88305; 88311; J7120; J2405

== ENCOUNTER 2023-05-09 13:10 | Inpatient (IN) | payer OTHER, SELFPAY ==
[2023-05-09 13:12] VITALS: BP 169/83; PULSE 59; RESP 16; TEMP 35.9; O2SAT 99
--- NOTE | 2023-05-09 13:13 | EX.ED.DYSGE1 ---
HPI History of Present Illness Chief Complaint: Abn Labs [facility] Medical History (Updated 05/09/23 @ 16:[address] Kendy Mendez, DO) Arthritis Bone fracture Diabetes Diabetes type 2, controlled Diabetic neuropathy associated with diabetes mellitus due to underlying condition Elevated liver enzymes Fatty liver Former smoker frozen shoulder,r arm High cholesterol HTN (hypertension) Neuropathy Non-pressure chronic ulcer of other part of left foot with fat layer exposed Seasonal allergies Shortness of breath on exertion Wears glasses Home Medications blood sugar diagnostic (OneTouch Verio test strips) #10 ea 02/11/19 [History Last Taken Unknown] blood-glucose meter (OneTouch Verio Meter) #1 ea 02/11/19 [History Last Taken Unknown] cholecalciferol (vitamin D3) 1,250 mcg (50,000 unit) capsule 50,000 unit PO QWEEK vitamin #12 caps 03/08/19 [Rx Last Taken 05/06/23] metoprolol succinate 50 mg tablet,extended release 24 hr 100 mg PO DAILY htn 03/08/19 [History Last Taken 05/07/23] amlodipine 5 mg tablet 10 mg PO DAILY htn 02/07/22 [History Last Taken 05/07/23] lisinopril 20 mg-hydrochlorothiazide 12.5 mg tablet 1 tab PO DAILY htn 02/07/22 [History Last Taken 05/06/23] tamsulosin 0.4 mg capsule 0.4 mg PO DAILY 02/07/22 [History Last Taken 05/06/23] biotin 100 mcg PO DAILY daily vitamin 12/10/22 [History Last Taken 05/06/23] calcium citrate 500 mg PO DAILY daily vitamin 12/10/22 [History Last Taken 05/06/23] fvweuhgp-fcpw-ask-folic acid 18 mg-0.4 mg tablet (One Daily Complete) 1 tab PO DAILY vitamin 12/10/22 [History Last Taken 05/06/23] vit B12 50 mcg-iodine 75 mcg-mag 100 er-opdz-lhmyezde-herb 193 capsule 1 cap PO DAILY 12/10/22 [History Last Taken 05/06/23] zinc 50 mg tablet 50 mg PO DAILY 12/10/22 [History Last Taken 05/06/23] metformin 1,000 mg tablet 1,000 mg PO BID diabetes 30 days #60 tabs 12/12/22 [Rx Last Taken 05/06/23 09:00] ascorbic acid (vitamin C) 500 mg tablet,extended release (C Complex) 500 mg PO DAILY daily vitamin 05/01/23 [History Last Taken 05/06/23] tirzepatide 2.5 mg/0.5 mL subcutaneous pen injector (Mounjaro) 2.5 mg subcut QWEEK 05/01/23 [History Last Taken Unknown] clindamycin HCl 300 mg capsule 300 mg PO TID #30 caps 05/07/23 [Rx Last Taken Unknown] oxycodone 5 mg capsule 5 mg PO Q6H PRN pain 7 days #28 caps 05/07/23 [Rx Last Taken Unknown] Allergy/AdvReac Type Severity Reaction Status Date / Time amoxicillin [From Augmentin] Allergy Severe Rash Verified 05/09/23 13:11 clavulanic acid Allergy Severe Rash Verified 05/09/23 13:11 [From Augmentin] Penicillins Allergy Unknown Hives Verified 05/09/23 13:11 Family History Mother Asthma Hypertension Father Hypertension Grandmother Cancer Unknown Arthritis Diabetes Other Diverticulitis Family history of high cholesterol Glaucoma Heart disease Kidney disease Renal failure Surgical History (Updated 12/16/22 @ 00:01 by Tae Chandra) H/O bariatric surgery History of liver biopsy Social History Smoking Status: Former smoker alcohol intake: never substance use type: does not use EXAM Physical Exam Const Vital Signs: 05/09/23 13:12 05/09/23 13:25 05/09/23 13:26 Temperature 96.6 F L 96.6 F L Temperature Source Temporal Temporal Pulse Rate 59 L 59 L Respiratory Rate 16 16 Respiratory Effort Normal Respiratory Pattern Normal Blood Pressure 169/83 H 169/83 H Blood Pressure Mean 111 111 Pulse Ox 99 99 Oxygen Delivery Method Room Air Room Air 05/09/23 15:14 Temperature 97.6 F L Temperature Source Temporal Pulse Rate 54 L Respiratory Rate 18 Respiratory Effort Respiratory Pattern Blood Pressure 142/84 H Blood Pressure Mean 103 Pulse Ox 100 Oxygen Delivery Method Room Air MDM MDM MDM Narrative Medical decision making narrative: HISTORY OF PRESENT ILLNESS: 47-year-old male presents with abnormal labs. REVIEW OF SYSTEMS: Pertinent positives: None Pertinent negatives: Fever, vomiting, chills PHYSICAL EXAM: Nursing triage notes reviewed, Vital signs reviewed Constitutional: please see mdm HENT: MMM Lungs: Clear to auscultation, No wheezing or rales. No increased work of breathing, no conversational dyspnea, no accessory muscle use, no nasal flaring. No respiratory distress noted Heart: Regular rate and rhythm, No murmurs, No rubs and No gallops, 2+ distal pulses (radial, femoral, posterior tibial) in all extremities Abdomen: Soft, there is no tenderness, rigidity, rebound or guarding, no obvious peritoneal signs, no palpable pulsatile abdominal masses, no auscultated abdominal bruit Extremities: Left lower extremity in postop dressing, toes are warm well-perfused, palpable dorsalis pedis pulse through dressing, did not take down the dressing per surgeon's request. Neuro: Intact sensation bilateral lower extremities MEDICAL DECISION MAKING: Chief Complaint: Abnormal labs External records reviewed: Operative report from 05/07/2023 reviewed. This was performed Dr. Tobias. Factors affecting care: Charcot foot, type 2 diabetes History obtained from others: The patient's Consults: Internal medicine (Dr. Mendez), Podiatry (Dr. Lucero) [facility] Narrative: Patient was hemodynamically stable, afebrile, nontoxic-appearing. Exam with intact pulses, normal neurologic function left lower extremity. Patient was bandaged and wrapped in postop dressing. This was not taken down at the recommendation of his street contractor. Bone culture positive for infection concern for osteomyelitis. Will give broad-spectrum antibiotics. ALL IMAGES (IF OBTAINED) HAVE BEEN PERSONALLY REVIEWED AND INTERPRETED BY MYSELF. CBC without significant leukocytosis, no anemia thrombocytopenia ESR elevated consistent with systemic summation BMP without evidence of significant electrolyte abnormalities, no anion gap, no acute kidney injury. CRP elevated consistent with systemic inflammation The patient and/or family, caregivers express understanding. The patient and/or family, caregivers agrees with the plan. Shared decision making: I will have a discussion with the patient and or visitors regarding risk/benefits of further testing or admission. They will be made aware of of the risk/benefits inherent in this decision they will be given the opportunity to voice understanding. Total critical care time today provided was at least 0 minutes. This excludes separately billable procedures. Critical care time (if documented) is secondary to the patient having high probability of clinically significant/life threatening deterioration in the patient's condition which required my urgent intervention. Impression: 1. Osteomyelitis 2. Type 2 diabetes 3. Charcot joint Dispo: Admit to inpatient Lab Data Labs: Laboratory Results - last 24 hr 05/09/23 13:28 WBC 7.1 RBC 4.98 Hgb 14.9 Hct 42.8 MCV 85.9 MCH 29.9 MCHC 34.8 RDW Std Deviation 36.4 RDW Coeff of Julianna 11.7 Plt Count 213 MPV 10.6 Immature Gran % (Auto) 0.400 Neut % (Auto) 67.9 Lymph % (Auto) 21.9 Sutter % (Auto) 8.3 Eos % (Auto) 1.1 Baso % (Auto) 0.4 Absolute Neuts (auto) 4.8 Absolute Lymphs (auto) 1.55 Nucleated RBC % 0 ESR 31 H Sodium 135 L Potassium 4.3 Chloride 101 Carbon Dioxide 30.0 Anion Gap 4 L BUN 14 Creatinine 1.19 Estim Creat Clear Calc 109.03 Est GFR (MDRD) Af Amer 84 Est GFR (MDRD) Non-Af 69 BUN/Creatinine Ratio 11.8 Glucose 223 H Calcium 9.9 C-React Prot Ext Range 24.00 H Discharge Plan Triage Chief Complaint: Abn Labs ED Provider: Mario Samuel Dx/Rx/DC Orders Primary Care Provider: SCOTT FREED Disposition Disposition: Home, Self Care
[2023-05-09 13:25] VITALS: BP 169/83; PULSE 59; RESP 16; TEMP 35.9; O2SAT 99
--- OUTSIDE RECORDS SUMMARY | 2023-05-09 13:39 | XMS RPT_ITS | CCD ---
Author Name Unknown Address [address] [place] [address] Organization [facility] Care Team Providers Care Corporate Executive Name Role Phone Vicenta Rai DO Primary Care Provider [phone] VICENTA RAI Attending Unavailable VICENTA RAI Primary Care Unavailable VICENTA RAI Attending Unavailable VICENTA RAI Primary Care Unavailable VICENTA RAI Attending Unavailable VICENTA RAI Primary Care Unavailable LESLYE MOLINA Attending Unavailable VICENTA RAI Primary Care Unavailable Allergies Allergy Classification Reported Allergen(s) Allergy Type Date of Onset Reaction(s) Facility (11 sources) Penicillins Drug Intolerance 07-07-2016 [facility] (11 sources) Amoxicillin-Pot Clavulanate Drug Allergy 06-16-2006 [facility] Medications Current Medications Medication Drug Class(es) [...] 80 mm[Hg] Leslye Barro PA-C Work Phone: [employer] 04-28-2023 08:22-0500 Systolic blood pressure 144 mm[Hg] Leslye Barro PA- C Work Phone: [employer] 04-28-2023 07:58-0500 Body height 195.6 cm Leslye Molina PA-C Work Phone: [employer] 04-28-2023 07:58-0500 Body mass index (BMI) [Ratio] 31.07 kg/m2 Leslye Barro PA-C Work Phone: [employer] 04-28-2023 07:58-0500 Body temperature 98.1 [degF] Leslye Barro PA-C Work Phone: [employer] 04-28-2023 07:58-0500 Body weight 118.84 kg Leslye Molina PA-C Work Phone: [facility] 04-28-2023 07:58-0500 Heart rate 69 /min Leslye Barro PA-C Work Phone: [employer] 04-28-2023 07:58-0500 SaO2% (BldA) [Mass fraction] 99 % Leslye Barro PA-C Work Phone: [facility] [employer] 02-27-2023 08:49-0500 Diastolic blood pressure 88 mm[Hg] Vicenta Rai DO Work Phone: [facility] 02-27-2023 08:49-0500 Systolic blood pressure 160 mm[Hg] Vicenta Rai DO Work Phone: [employer] 02-27-2023 08:18-0500 Body height 195.6 cm Vicenta Rai DO Work Phone: [employer] [facility] 02-27-2023 08:18-0500 Body mass index (BMI) [Ratio] 30.95 kg/m2 Vicenta Rai DO Work Phone: [employer] [facility] 02-27-2023 08:18-0500 Body weight 118.39 kg Vicenta Rai DO Work Phone: [facility] [employer] 02-27-2023 08:18-0500 Heart rate 60 /min Vicenta Rai DO Work Phone: [facility] 02-27-2023 08:18-0500 SaO2% (BldA) [Mass fraction] 99 % Vicenta Rai DO Work Phone: [facility] 01-05-2023 14:06-0400 Body height 195.6 cm Vicenta Rai DO Work Phone: [facility] 01-05-2023 14:06-0400 Body mass index (BMI) [Ratio] 29.76 kg/m2 Vicenta Rai DO Work Phone: [facility] 01-05-2023 14:06-0400 Body weight 113.85 kg Vicenta Rai DO Work Phone: [facility] 01-05-2023 14:06-0400 Diastolic blood pressure 81 mm[Hg] Vicenta Rai DO Work Phone: [facility] 01-05-2023 14:06-0400 Heart rate 54 /min Vicenta Rai DO Work Phone: [facility] 01-05-2023 14:06-0400 SaO2% (BldA) [Mass fraction] 98 % Vicenta Rai DO Work Phone: [facility] 01-05-2023 14:06-0400 Systolic blood pressure 134 mm[Hg] Vicenta Rai DO Work Phone: [facility] Encounters Encounter Date Encounter Type Care Provider Facility Start: 04-28-2023 End: 04-28-2023 ambulatory LESLYE MOLINA [facility] Start: 04-28-2023 End: 04-28-2023 Encounter for other preprocedural examination LESLYE MOLINA [facility] Start: 04-28-2023 End: 04-28-2023 Office outpatient visit 15 minutes Leslye Molina PA-C Work Phone: [facility] Procedures Date Procedure [...] or older (1 - 1-dose 60+ series) [facility] Start: 08-01-2026 DTaP/Tdap/Td Vaccine s (2 - Td or Tdap) DTaP/Tdap/Td Vaccines (2 - Td or Tdap) [facility] Start: 2024 Zoster Vaccines (1 of 2) Zoster Vacc pedro luis (1 of 2) [facility] Start: 04-28-2024 Hemoglobin A1c measurement Diabetes: Hemoglobin A1C [facility] Start: 02-28-2024 Hemoglobin A1c measurement Diabetes: Hemoglobin A1C [facility] Start: 02-28-2024 Lipid panel Lipid Panel [facility] Start: 06-03-2023 Glaucoma screening Diabetes: R etinopathy Screening [facility] Start: 04-28-2023 End: 04-28-2024 CBC W Auto Differential panel - Blood CBC auto differential Lab Routine Type 2 diabetes mellitus with hyperglycemia, without long-term current use of insulin (HCC) Pre-op evaluation Expected: 04/28/2023 (Approximate), Expires: 04/28/2024 [facility] Work Phone: Immunizations Immunization Date Immunization Notes Care Provider Fa anicetoty 08-18-2020 Pfizer SARS-CoV-2 Vaccination Melissa Buckley RN [facility] 07-28-2020 Pfizer SARS-CoV-2 Vaccination Melissa Buckley RN [facility] Payers Date Payer Category Payer Unknown [facility] ARE [id number] 2023-Present [address] [place] [address] Commercial [id number] 2023 Unknown [id number] 2022 Private Health Insurance [id number] 2022 Private Health Insurance [id number] 2022 Private Health Insurance [id number] Social History Date Type Detail Facility Tobacco smoking status NHIS Never smoked tobacco [facility] Start: 09-05-2022 End: 04-28-2023 Alcohol intake Current non-drinker of alcohol (finding) [facility] Start: 09-05-2022 End: 04-28-2023 History of Social function [facility] Start: 09-05-2022 End: 04-28-2023 Tobacco use panel [facility] Start: 1975 Sex Assigned At Not on file [facility] Start: 02-06-2022 Gender identity Identifies as male gender (finding) [facility] Start: 02-06-2022 Sexual orientation Heterosexual (fin ding) [facility] Start: 12-26-2022 End: 01-05-2023 Exposure to SARS-CoV-2 (event) Not sure [facility] Start: 1975 Sex Assigned At Male S [facility] Clinical Notes 06-28-2020 to 04-28-2023 Assessment & Plan Note - Leslye Molina PA-C - 04/28/2023 8:52 AM ESTAssessment & Plan Note - ZHANNA Thompson 04/28/2023 8:52 AM Jackie Molina PA-C - 04/28/2023 8:00 AM EST Note Date & Type Note Facility 04-28-2023 Note Addended by: LESLYE MOLINA on: 04/29/2023 07:52 AM Modules accepted: Level of Service [facility] 04-28-2023 Evaluation + Plan note Associated [...] have delayed primary closure of the wound [facility] 04-28-2023 Miscellaneous Notes Associated Problem(s): Diabetes (HCC) [...] of the wound documented in this encounter [facility] 04-28-2023 Miscellaneous Notes Associated Problem(s): Diabetes (HCC) [...] Level of Service documented in this encounter [facility] 04-28-2023 History of Presen t illness Narrative Images from the original note were not included. [facility] [address] [facility] [address] Dept: [phone] Dept Loc: [phone] Visit type: Established Patient Reason for Visit: [...] is considered below average based on the [employer] risk calculation for surgery. [...] by mouth. ergocalciferol (Vitamin D2) 1.25 MG (32228 UT) capsule Take 1 capsule (1.25 mg) [...] prior to signing but minor errors in allergy and immunology specialist may have occurred. documented in this encounter [facility] 04-28-2023 History of Presen t illness Narrative Images from the original note were not included. [facility] [address] [place] [address] [address] [facility] [address] Dept: [phone] Dept Loc: [phone] Visit type: Established Patient Reason for Visit: Foot Pain (Left foot surgeries clearance ) Assessment and Plan 1. Type 2 diabetes mellitus with hyperglycemia, without long-term current use of insulin ([facility]) Assessment & Plan: - Chronic stable [...] is considered below average based on the [employer] risk calculation for surgery. [...] by mouth. ergocalciferol (Vitamin D2) 1.25 MG (52268 UT) capsule Take 1 capsule (1.25 mg) [...] prior to signing but minor errors in allergy and immunology specialist may have occurred. documented in this encounter [facility] 04-28-2023 Note Addended by: LESLYE MOLINA on: 04/29/2023 07:52 AM Modules accepted: Level of Service [facility] 04-21-2023 Note Pt cancelled appt wi Dr Rai. Will check with pt on referrals [facility] 04-08-2023 Note Spoke with Ruben mitchell [facility]. I let her know Alexis No Showed for appointment 04/03/2023 for Medical Clearance. Pt will need to reschedule. Dr Rai will be out of office. Pt can also do a appointment with our PA Leslye Molina. [facility] 04-08-2023 Telephone encounter Note Spoke with Ruben from [facility]. I let her know Alexis No Showed for appointment 04/03/2023 for Medical Clearance. Pt will need to reschedule. Dr Rai will be out of office. Pt can also do a appointment with our PA Leslye Molina. [facility] 04-08-2023 Miscellaneous Notes Spoke with Ruben from [facility]. I let her know Alexis No Showed for appointment 04/03/2023 for Medical Clearance. Pt will need to reschedule. Dr Rai will be out of office. Pt can also do a appointment with our PA Leslye Molina. 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 Advised her that the patient does not have an appointment, she said that they may have to cancel his surgery. Best time of day caller can be reached: any Patient advised that office/PCP has 24-48 business hours to return their call: No [facility] 04-02-[address] Rai. Pt has an appt with you tomorrow. One for GI and one for ophthalmology. Wondering if pt still wants the referrals open. Please advise and send back to me. Thank you for your help. Yisel POD coordinator [facility] 03-18-2023 Note Called [facility] put pap ers on Dr Rai desk. They wants labs did not say which kind ? They want patient to have a face to face medical clearance. [facility] 03-18-2023 Telephone encounter Note Called [facility] put papers on Dr Rai desk. They wants labs did not say which kind ? They want patient to have a face to face medical clearance. [facility] 03-18-2023 Telephone encounter Note Name of caller: [facility] Contact phone number: [phone] Relationship to Patient: [facility] Provider: Dr Rai Practice: [facility] location Chief Complaint/Reason for Call: 03/18/23 [facility] calling to ask if the office /provider have received a Fax from [facility] for MEDICAL CLEARANCE needed prior to pt outpatient procedure pls advise call if needed Best time of day caller can be reached: PM Patient advised that office/PCP has 24-48 business hours to return their call: Yes [facility] 03-02-2023 Telephone encounter Note ordered [facility] 03-02-2023 Miscellaneous Notes ordered Pt says you [...] mention he needed a referral to an orthopedic/trailer technician? documented in this encounter [facility] 02-27-2023 Note Does he need a refer ral to someone specific? I believe he has been seeing someone [facility] 02-27-2023 Note When patient was denise cking out he said he forgot to mention he needed a referral to an orthopedic/trailer technician? [facility] 02-27-2023 Telephone encounter Note Pt says you referred him to Dr Pitts previously but it takes too long to get in. Thinking if their is someone in [facility] he would like to go their. [facility] 02-27-2023 Telephone encounter Note Does he need a referral to someone specific? I believe he has been seeing someone [facility] 02-27-2023 Telephone encounter Note When patient was checking out he said he forgot to mention he needed a referral to an orthopedic/trailer technician? [facility] 02-27-2023 History of Presen t illness Narrative Images from the original note were not included. [facility] [address] [facility] [address] Visit type: Established Patient Reason for [...] by mouth. ergocalciferol (Vitamin D2) 1.25 MG (20969 UT) capsule Take 1 capsule (1.25 mg) [...] 03/04/2023 5:04 PM documented in this encounter [facility] 01-05-2023 Note Addended by: VICENTA RAI on: 01/13/2023 02:13 PM Modules accepted: Level of Service [facility] 01-05-2023 History of Presen t illness Narrative Images from the original note were not included. [facility] [address] [place] [phone] Post-Discharge Hospital Follow Up Date of [...] Ulcer of left foot with other severity ([facility]) - [facility] Orthopedics Foot/Ankle Lower Extremities - Ro 3. Type 2 diabetes mellitus with hyperglycemia, without long-term current use of insulin ([facility]) (HCC) Chronic, well controlled on current [...] , Rfl: ergocalciferol (Vitamin D2) 1.25 MG (12059 UT) capsule, Take 1 capsule (1.25 mg) [...] Judgment: Judgment normal. documented in this encounter [facility] 01-05-2023 Miscellaneous Notes Addended by: VICENTA RAI on: 01/13/2023 02:13 PM Modules accepted: Level of Service documented in this encounter [facility] 01-05-2023 Note Addended by: VICENTA RAI on: 01/13/2023 02:13 PM Modules accepted: Level of Service [facility] 12-23-2022 Telephone encounter Note Last OV:09/05/22 Scheduled: 01/05/23 [facility] 12-23-2022 Miscellaneous Notes Last OV:09/05/22 Scheduled: 01/05/23 documented in this encounter [facility] 12-23-2022 Telephone encounter Note Patient aware [facility] 12-23-2022 Miscellaneous Notes Patient aware 2PM on jan 05 - this will be a double book yellow slot He is doing well. [facility]. ( Wound Center ) Patient was discharged 12/12/2022. When was he discharged? Where was he admitted? I don't see any documentation of an admission? We will schedule him next week once I Have more information Name of caller: Alexis Contact phone number: [phone] Relationship to Patient: patient Provider: Dr. Ashley Practice: [facility] Chief Complaint/Reason for Call: Please assist with scheduling a JAYE appt, the pt was discharge 8/ Best time of day caller can be reached: any Patient advised that office/PCP has 24-48 business hours to return their call: N/A documented in this encounter [facility] 12-23-2022 Telephone encounter Note 2PM on jan 05 - this will be a double book yellow slot [facility] 12-19-2022 Telephone encounter Note He is doing well. [facility] 12-19-2022 Telephone encounter Note [facility]. ( Wound Center ) Patient was discharged 12/12/2022. [facility] 12-19-2022 Telephone encounter Note When was he discharged? Where was he admitted? I don't see any documentation of an admission? We will schedule him next week once I Have more information [facility] 12-18-2022 Telephone encounter Note Name of caller: Alexis Contact phone number: [phone] Relationship to Patient: patient Provider: Dr. Ashley Practice: [place] Chief Complaint/Reason for Call: Please assist with scheduling a JAYE appt, the pt was discharge 8/ Best time of day caller can be reached: any Patient advised that office/PCP has 24-48 business hours to return their call: N/A [facility] 12-08-2022 Telephone encounter Note Noted [facility] 12-08-2022 Miscellaneous Notes Noted S: the patient is calling the [facility] about a fever B: yesterday [...] Patient wants to be seen Protocols used: [id number] documented in this encounter [facility] 12-08-2022 Telephone encounter Note S: the patient is calling the [facility] about a fever B: yesterday [...] Patient wants to be seen Protocols used: [id number] [facility] 09-05-2022 Note Faxed referral, demo and summary of care to [facility] as requested [facility] 06-28-2020 Note Patient Outreach ([place] VACT) ALEXIS LACKEY ([id number]) 1975 M Date Time Provider Department 06/28/20 ANDREINA, GREER PAYAN During your visit today, we recorded the following information about you: Allergies As of Date: 06/28/2020 Noted Allergy Reaction AUGMENTIN (AMOXICILLIN-POT CLAVUL*06/16/2006 4 - Hives PENICILLINS 07/07/2016 4 - Hives Date Reviewed: 06/09/2019 Reviewed by: Jani Welsh MA - Fully Assessed Order(s):SARS-COVID VACCINE 1ST DOSE APPT [[id number]] Order #: [id number] FUTURE Prescriptions as of 06/28/2020 Sig: FREESTYLE [...] Encounter Status:Closed by WINIFRED ALFARO on 07/02/20 [facility] documented in this encounter [facility] Diagnosis Deformity of left foot- Primary Ulcer of left foot with other severity (HCC) documented in this encounter [facility]* Diagnosis Benign essential HTN- Primary documented in this encounter [facility]* Diagnosis Type 2 diabetes mellitus with hyperglycemia, without long-term current use of insulin (HCC)- Primary Pre-op evaluation Diabetic ulcer of left midfoot associated with type 2 diabetes mellitus, unspecified ulcer stage (HCC) documented in this encounter [facility]* Diagnosis Type 2 diabetes mellitus with hyperglycemia, without long-term current use of insulin (HCC)- Primary Pre-op evaluation Diabetic ulcer of left midfoot associated with type 2 diabetes mellitus, unspecified ulcer stage (HCC) [facility] Consultation (Routine) - Authorized Specialty Diagnoses / Procedures Referred By Casey langston Referred To Contact Orthopedic Surgery Diagnoses Deformity of left foot Ulcer of left foot with other severity (HCC) Vicenta Rai, DO [address] [place] [address] [facility] [address] [place] [address] Referral ID Status Reason Start Date Expiration Date Visits Requested Visits Authorized [id number] Authorized Specialty Services Required 01/05/2023 01/05/2024 1 1 [facility] Consultation (Routine) - Pending Review Specialty Diagnoses / Procedures Referred By Casey langston Referred To Contact Orthopedic Surgery Diagnoses Deformity of left foot Ulcer of left foot with other severity (HCC) Vicenta Rai DO [address] [facility] [address] [place] [address] Referral ID Status Reason Start Date Expiration Date Visits Requested Visits Authorized [id number] Pending Review Specialty Services Required 3 03/01/2024 1 1 Scheduling Instructions [facility] per patient's request [facility] Summary Purpose Family History No Family History Records FoundNo Family History Records Found Advance Directives No Advanced Directives Records FoundNo Advanced Directives Records Found Reason for Referral Specialty Diagnoses / Procedures Referred By Casey langston Referred To Contact Diagnoses Type 2 diabetes mellitus with hyperglycemia, without long-term current use of insulin (HCC) Leslye Molina PA-C [address] [facility] [address] [place] [address] Referral ID Status Reason Start Date Expiration Date V isits Requested Visits Authorized [id number] Pending Review 1 1 Additional Source Comments (unrecognized sect ion and content) No Status Records FoundNo Status Records Found INFORMATION SOURCE (unrecogn ized section and content) DATE CREATED AUTHOR AUTHOR'S ORGANIZ ATION 05/02/2023 [facility] Reason for Visit (unrecogniz [...] Care Teams (unrecognized sec tion and content) Corporate Executive Relationship Specialty Start Date End Date Vicenta Rai DO [address] [place] [id number] PCP - General 09/29/18 Corporate Executive Relationship Specialty Start Date End Date Vicenta Rai DO [address] [place] [id number] PCP - General 09/29/18 Corporate Executive Relationship Specialty Start Date End Date Vicenta Rai DO [address] [place] [address] PCP - General 09/29/18 Corporate Executive Relationship Specialty Start Date End Date Vicenta Rai DO [address] [place] [address] PCP - General 09/29/18 Corporate Executive Relationship Specialty Start Date End Date Vicenta Rai DO [address] [place] [address] PCP - General 09/29/18 Corporate Executive Relationship Specialty Start Date End Date Vicenta Rai DO [address] [place] [address] [address] [place] [address] PCP - General 09/29/18 Corporate Executive Relationship Specialty Start Date End Date Vicenta Rai DO [address] [place] [address] [address] [place] [address] PCP - General 09/29/18 Corporate Executive Relationship Specialty Start Date End Date Vicenta Rai DO [address] [place] [address] [address] [place] [address] PCP - General 09/29/18 Corporate Executive Relationship Specialty Start Date End Date Rai Vicenta Mitchell DO [address] [place] [address] PCP - General 09/29/18 FOR RECORDS PERTAINING [...] BE BASED ON THE PRIMARY CLINICAL RECORDS. [facility]. provides no warranty or guarantee of the accuracy or completeness of information in this document.
[2023-05-09 13:48] VITALS: BMI 31.4
[2023-05-09 13:53] LABS: Absolute Lymphocyte Count 1.55 X10^3/uL (0.83-4.51); Absolute Neutrophil Count 4.8 X10^3/uL (2.0-7.7); Basophil# 0.03 X10^3/uL; Basophil% 0.4 % (0-1); Eosinophil# 0.08 X10^3/uL; Eosinophils% 1.1 % (0-5); Hematocrit 42.8 % (40-54); Hemoglobin 14.9 g/dL (13.0-16.5); Lymphocyte # 1.55 X10^3/ul (0.83-4.51); Lymphocyte % 21.9 % (19-41); Mean Corp Hgb Conc 34.8 g/dL (32-36); Mean Corpuscular Hgb 29.9 pg (27.0-32.0); Mean Corpuscular Volume 85.9 fL (80-94); Mean Platelet Vol. 10.6 fl (6.2-12.0); Monocyte# 0.59 X10^3/uL; Monocyte% 8.3 % (0-10); NRBC Flagged by Analyzer 0 % (0-5); Neutrophil # 4.79 X10^3/uL (2.7-7.7); Neutrophil % 67.9 % (47-70); Platelet Count 213 K/mm3 (150-450); RBC Distribution Width CV 11.7 % (11.6-14.6); RBC Distribution Width SD 36.4 fl (35.1-43.9); Red Blood Count 4.98 M/mm3 (4.6-6.2); White Blood Count 7.1 K/mm3 (4.4-11.0)
[2023-05-09 13:57] LABS: Anion Gap 4 (5-15); BUN 14 mg/dL (7-18); BUN/Creat Ratio 11.8 RATIO (10-20); Calcium,Total 9.9 mg/dL (8.5-10.1); Chloride 101 mmol/L (98-107); Creatinine, Serum 1.19 mg/dL (0.70-1.30); EST Glomerular Filtration Rate 69 mL/min (>60); Est Glom Filt Rate - Afr Amer 84 mL/min (>60); Estimated Creatinine Clearance 109.03 ml/min; Glucose 223 mg/dL (74-106); Potassium 4.3 mmol/L (3.5-5.1); Sodium Level 135 mmol/L (136-145)
[2023-05-09 14:05] LABS: Erythrocyte Sedimentation Rate 31 mm/hr (0-20)
[2023-05-09] MEDS: Cefepime HCl 2 GM in 0.9% Normal Saline (100mL MB+) 100 ML IV (14:10)
[2023-05-09] MEDS: Vancomycin HCl 1,500 MG in 0.9% Normal Saline (500mL Bag) 500 ML 250 MG IV ×2 (14:55→22:34)
[2023-05-09 15:14] VITALS: BP 142/84; PULSE 54; RESP 18; TEMP 36.4; O2SAT 100
--- NOTE | 2023-05-09 16:02 | HP.PCM.HOS_ITS ---
HPI - General General Date of Admission: 05/09/23 Date of Service: 05/09/23 Chief Complaint: Foot wound with + cultures HPI Narrative ALEXIS LACKEY, is a 47 M who presented to the emergency department at [facility] on 05/09/2023 after being called by the nurse practitioner at the wound center with regards to his intraoperative cultures and being contacted by Dr. Lucero indicating he could either come to the emergency department or be seen in his office on Thursday. Family chose to come to the emergency department today to be evaluated further due to positive cultures. The patient developed a foot wound after he had a abnormal healing of foot fracture and has been dealing with this for some time. It is noted in the surgical description that he has a chronic left diabetic foot wound in the setting of neuropathic fracture of the left foot and has a radiographically plantar convexity in the plantar aspect of the fifth metatarsal base which is the apex for the wound formation. He had outpatient cultures and grew Enterococcus and a gram-positive bridgett and was placed on antibiotics for several days however he had difficulty with wound healing and was taken in for a tendo Achilles lengthening of the left lower extremity, plantar planing with 6 excision plantar fifth metatarsal base with bone biopsy and culture, wound debridement with graft preparation and application and has been placed in AO splint of the left lower extremity. Intraoperative cultures are showing Enterococcus faecalis, alpha-hemolytic strep, and Pseudomonas. Patient does have penicillin allergy in the form of a rash. Vital signs demonstrated temperature of 97.6, heart rate 54, blood pressure is 142/84, respiratory rate is 18 and oxygen saturations are 100% on room air. CBC is unremarkable and there is no left shift. Chemistry panel is overall unremarkable other than hyperglycemia with a blood glucose level of 223. CRP is 24 and ESR is 31. No foot imaging was obtained at this time. In the emergency department he was treated with antibiotics in the form of vancomycin and cefepime. Plan is to admit to the medical floor and placed him on IV antibiotics to include vancomycin and Levaquin, consult ID, podiatry, and vascular surgery for further evaluation. COUNTS INCLUDE 234 BEDS AT THE [facility] Medical History Arthritis Bone fracture Diabetes Diabetes type 2, controlled Diabetic neuropathy associated with diabetes mellitus due to underlying condition Elevated liver enzymes Fatty liver Former smoker frozen shoulder,r arm High cholesterol HTN (hypertension) Neuropathy Non-pressure chronic ulcer of other part of left foot with fat layer exposed Seasonal allergies Shortness of breath on exertion Wears glasses Home Medications blood sugar diagnostic (OneTouch Verio test strips) #10 ea 02/11/19 [History Last Taken Unknown] blood-glucose meter (OneTouch Verio Meter) #1 ea 02/11/19 [History Last Taken Unknown] cholecalciferol (vitamin D3) 1,250 mcg (50,000 unit) capsule 50,000 unit PO QWEEK vitamin #12 caps 03/08/19 [Rx Last Taken 05/06/23] metoprolol succinate 50 mg tablet,extended release 24 hr 100 mg PO DAILY htn 03/08/19 [History Last Taken 05/07/23] amlodipine 5 mg tablet 10 mg PO DAILY htn 02/07/22 [History Last Taken 05/07/23] lisinopril 20 mg-hydrochlorothiazide 12.5 mg tablet 1 tab PO DAILY htn 02/07/22 [History Last Taken 05/06/23] tamsulosin 0.4 mg capsule 0.4 mg PO DAILY 02/07/22 [History Last Taken 05/06/23] biotin 100 mcg PO DAILY daily vitamin 12/10/22 [History Last Taken 05/06/23] calcium citrate 500 mg PO DAILY daily vitamin 12/10/22 [History Last Taken 05/06/23] vrckecjs-srnc-wpp-folic acid 18 mg-0.4 mg tablet (One Daily Complete) 1 tab PO DAILY vitamin 12/10/22 [History Last Taken 05/06/23] vit B12 50 mcg-iodine 75 mcg-mag 100 uc-sayl-pjiirkxs-herb 193 capsule 1 cap PO DAILY 12/10/22 [History Last Taken 05/06/23] zinc 50 mg tablet 50 mg PO DAILY 12/10/22 [History Last Taken 05/06/23] metformin 1,000 mg tablet 1,000 mg PO BID diabetes 30 days #60 tabs 12/12/22 [Rx Last Taken 05/06/23 09:00] ascorbic acid (vitamin C) 500 mg tablet,extended release (C Complex) 500 mg PO DAILY daily vitamin 05/01/23 [History Last Taken 05/06/23] tirzepatide 2.5 mg/0.5 mL subcutaneous pen injector (Mounjaro) 2.5 mg subcut QWEEK 05/01/23 [History Last Taken Unknown] clindamycin HCl 300 mg capsule 300 mg PO TID #30 caps 05/07/23 [Rx Last Taken Unknown] oxycodone 5 mg capsule 5 mg PO Q6H PRN pain 7 days #28 caps 05/07/23 [Rx Last Taken Unknown] Allergy/AdvReac Type Severity Reaction Status Date / Time amoxicillin [From Augmentin] Allergy Severe Rash Verified 05/09/23 13:11 clavulanic acid Allergy Severe Rash Verified 05/09/23 13:11 [From Augmentin] Penicillins Allergy Unknown Hives Verified 05/09/23 13:11 Family History Mother Asthma Hypertension Father Hypertension Grandmother Cancer Unknown Arthritis Diabetes Other Diverticulitis Family history of high cholesterol Glaucoma Heart disease Kidney disease Renal failure Surgical History H/O bariatric surgery History of liver biopsy Social History (Updated 05/09/23 @ 17:[address] Kendy Mendez DO) household members: family housing: house Smoking Status: Former smoker alcohol intake: never substance use type: does not use ROS Constitutional Constitutional: Denies anorexia, change in weight, chills, fatigue, fever(s), malaise, night sweats, weakness or other Eyes Eyes: Denies blurry vision, change in eye color, change in vision, discharge from eye(s), double vision, erythema, eye pain, loss of vision or other ENT HEENT: Denies abnormal hearing, dysphagia, ear pain, epistaxis, headache(s), hearing loss, nasal congestion, nasal discharge, post nasal drip, sinus p ressure, sore throat or other Cardiovascular Cardiovascular: Denies chest pain, claudication, dyspnea on exertion, edema, lightheadedness, orthopnea, palpitations, paroxysmal nocturnal dyspnea, rapid heart rate, syncope or other Respiratory/Chest Respiratory/Chest: Denies cough, dyspnea, excessive phlegm production, hemoptysis, productive cough, shortness of breath at rest, shortness of breath with exertion, wheezing or other Gastrointestinal Gastrointestinal: Denies abdominal pain, coffee ground emesis, constipation, diarrhea, dyspepsia, hematemesis, hematochezia, loose stools, melena, nausea, vomiting or other Genitourinary Genitourinary: Denies burning urination, difficulty urinating, dysuria, hematuria, nocturia, urinary frequency, urinary hesitancy, urinary incontinence, urinary urgency or other Musculoskeletal Musculoskeletal: Reports other Details: Left foot pain Neurologic Neurologic: Reports other Details: Peripheral neuropathy bilateral lower extremities from diabetes Endocrine Endocrinology: Denies change in body appearance, cold intolerance, excessive sweating, heat intolerance, polydipsia, polyuria or other Hematologic/Lymphatic Hematologic/Lymphatic: Denies anemia, easy bleeding, easy bruising, lymphadenopathy or other Allergic/Immunologic Allergic/Immunologic: Denies rhinitis, hives, eczemia, asthma or other Vital Signs Vital Signs Vital Signs: 05/09/23 13:12 05/09/23 13:25 05/09/23 13:26 Temperature 96.6 F L 96.6 F L Temperature Source Temporal Temporal Pulse Rate 59 L 59 L Respiratory Rate 16 16 Respiratory Effort Normal Respiratory Pattern Normal Blood Pressure 169/83 H 169/83 H Blood Pressure Mean 111 111 Pulse Ox 99 99 Oxygen Delivery Method Room Air Room Air Weight Weight: 120.2 kg Body Mass Index (BMI) 31.4 Physical Exam Const alert, oriented x3, no apparent distress, healthy appearing and well nourished Constitutional Narrative: Obese, middle-aged, white male, sitting up in bed, appears comfortable nontoxic, at bedside, watching football General Appearance: cooperative HEENT normocephalic, head/scalp atraumatic, hearing grossly normal bilaterally and moist oral mucous membranes HEENT Narrative: Mallampati is 2, no thrush, dentition is good Resp normal respiratory effort, no retractions, no use of accessory muscles and clear to auscultation bilaterally Auscultation: Negative for rales, rhonchi or wheezes Cardio regular rhythm, S1 normal heart sound, S2 normal heart sound, no murmurs, no rub, no gallops and no clicks Cardio Narrative: Bradycardic GI normal to inspection, nondistended, normoactive bowel sounds, soft to palpation and non-tender Extremity Extremity Narrative: Left lower extremity with postoperative splint in place, cap refill is 2+, no cyanosis or clubbing, no significant edema present Neuro oriented x3 and no focal motor deficits Neuro Narrative: Unable to move left lower extremity at the ankle due to postoperative splint in place but all other extremities move symmetrically Speech: speech normal Psych affect normal Psych Narrative: Extremely pleasant, patient interacts appropriately Results Lab / Micro Data 05/09/23 13:28 05/09/23 13:28 Labs: Laboratory Results - last 24 hr 05/09/23 13:28: WBC 7.1, RBC 4.98, Hgb 14.9, Hct 42.8, MCV 85.9, MCH 29.9, MCHC 34.8, RDW Std Deviation 36.4, RDW Coeff of Julianna 11.7, Plt Count 213, MPV 10.6, Immature Gran % (Auto) 0.400, Neut % (Auto) 67.9, Lymph % (Auto) 21.9, Person % (Auto) 8.3, Eos % (Auto) 1.1, Baso % (Auto) 0.4, Absolute Neuts (auto) 4.8, Absolute Lymphs (auto) 1.55, Nucleated RBC % 0, ESR 31 H, Sodium 135 L, Potassium 4.3, Chloride 101, Carbon Dioxide 30.0, Anion Gap 4 L, BUN 14, Creatinine 1.19, Estim Creat Clear Calc 109.03, Est GFR (MDRD) Af Amer 84, Est GFR (MDRD) Non-Af 69, BUN/Creatinine Ratio 11.8, Glucose 223 H, Calcium 9.9, C- React Prot Ext Range 24.00 H Assessment & Plan Assessment/Plan (1) Charcot's joint, left ankle and foot: (2) Foot abscess, left: (3) Hyperglycemia: PLAN: Plan Left lower extremity infected diabetic neuropathic wound -Postop day 2 status post tendo Achilles lengthening, plantar planing with 6 excision plantar fifth metatarsal base for bone biopsy and culture, wound debridement with graft application -Cultures are showing alphahemolytic strep, Enterococcus faecalis, and Pseudomonas and there is also some anaerobic growth -Will start on vancomycin to cover the Enterococcus, Levaquin to cover the Pseudomonas and possible anaerobe -Patient has penicillin allergy -Consult Dr. Lucero -Consult vascular surgery-Dr. Dunlap -Consult infectious disease -Continue with nonweightbearing status -As needed Tylenol and oxycodone for pain DM-2 with hyperglycemia -Current blood sugar is elevated at 223 -Check hemoglobin A1c -It appears that patient is on 10 and metformin at home-will hold for now -Lantus 10 units SQ at at bedtime -SSI Hypertension -Continue home amlodipine -Continue home lisinopril/hydrochlorothiazide -Continue home metoprolol BPH with obstruction -Continue home Flomax History of tobacco abuse -Remote Vitamin D deficiency -Restart vitamin D supplementation at discharge Obesity -BMI 31.4 -Patient status post gastric bypass surgery DVT prophylaxis -Lovenox daily CODE STATUS -full code is verified on admission Charges/Coding Visit Charges Inpatient E&M: 22385 Init Hosp L2
--- OUTSIDE RECORDS SUMMARY | 2023-05-09 16:07 | XMS RPT_ITS | CCD ---
Author Name Unknown Address [address] [place] [address] Organization [facility] Care Team Providers Care Purchasing Manager Name Role Phone Vicenta Rai DO Primary Care Provider [phone] VICENTA RAI Attending Unavailable VICENTA RAI Primary Care Unavailable VICENTA RAI Attending Unavailable VICENTA RAI Primary Care Unavailable VICENTA RAI Attending Unavailable VICENTA RAI Primary Care Unavailable LESLYE MOLINA Attending Unavailable VICENTA RAI Primary Care Unavailable Allergies Allergy Classification Reported Allergen(s) Allergy Type Date of Onset Reaction(s) Facility (11 sources) Penicillins Drug Intolerance 07-07-2016 [facility] (11 sources) Amoxicillin-Pot Clavulanate Drug Allergy 06-16-2006 [facility] Medications Current Medications Medication Drug [...] 80 mm[Hg] Leslye Barro PA-C Work Phone: [employer] 04-28-2023 08:22-0500 Systolic blood pressure 144 mm[Hg] Leslye Barro PA- C Work Phone: [employer] 04-28-2023 07:58-0500 Body height 195.6 cm Leslye Molina PA-C Work Phone: [employer] 04-28-2023 07:58-0500 Body mass index (BMI) [Ratio] 31.07 kg/m2 Leslye Barro PA-C Work Phone: [employer] 04-28-2023 07:58-0500 Body temperature 98.1 [degF] Leslye Barro PA-C Work Phone: [employer] 04-28-2023 07:58-0500 Body weight 118.84 kg Leslye Molina PA-C Work Phone: [facility] [employer] 04-28-2023 07:58-0500 Heart rate 69 /min Leslye Barro PA-C Work Phone: [employer] 04-28-2023 07:58-0500 SaO2% (BldA) [Mass fraction] 99 % Leslye Barro PA-C Work Phone: [facility] [employer] 02-27-2023 08:49-0500 Diastolic blood pressure 88 mm[Hg] Vicenta Rai DO Work Phone: [facility] [employer] 02-27-2023 08:49-0500 Systolic blood pressure 160 mm[Hg] Vicenta Rai DO Work Phone: [employer] 02-27-2023 08:18-0500 Body height 195.6 cm Vicenta Rai DO Work Phone: [employer] 02-27-2023 08:18-0500 Body mass index (BMI) [Ratio] 30.95 kg/m2 Vicenta Rai DO Work Phone: [employer] 02-27-2023 08:18-0500 Body weight 118.39 kg Vicenta Rai DO Work Phone: [facility] [employer] 02-27-2023 08:18-0500 Heart rate 60 /min Vicenta Rai DO Work Phone: [facility] [employer] 02-27-2023 08:18-0500 SaO2% (BldA) [Mass fraction] 99 % Vicenta Rai DO Work Phone: [facility] [employer] 01-05-2023 14:06-0400 Body height 195.6 cm Vicenta Rai DO Work Phone: [facility] [employer] 01-05-2023 14:06-0400 Body mass index (BMI) [Ratio] 29.76 kg/m2 Vicenta Rai DO Work Phone: [facility] [employer] 01-05-2023 14:06-0400 Body weight 113.85 kg Vicenta Rai DO Work Phone: [facility] [employer] 01-05-2023 14:06-0400 Diastolic blood pressure 81 mm[Hg] Vicenta Rai DO Work Phone: [facility] [employer] 01-05-2023 14:06-0400 Heart rate 54 /min Vicenta Rai DO Work Phone: [facility] [employer] 01-05-2023 14:06-0400 SaO2% (BldA) [Mass fraction] 98 % Vicenta Rai DO Work Phone: [facility] [employer] 01-05-2023 14:06-0400 Systolic blood pressure 134 mm[Hg] Vicenta Rai DO Work Phone: [facility] [employer] Encounters Encounter Date Encounter Type Care Provider Facility Start: 04-28-2023 End: 04-28-2023 ambulatory LESLYE MOLINA [facility] Start: 04-28-2023 End: 04-28-2023 Encounter for other preprocedural examination LESLYE MOLINA [facility] Start: 04-28-2023 End: 04-28-2023 Office outpatient visit 15 minutes Leslye Molina PA-C Work Phone: [facility] Procedures Date Procedure [...] or older (1 - 1-dose 60+ series) [facility] Start: 08-01-2026 DTaP/Tdap/Td Vaccine s (2 - Td or Tdap) DTaP/Tdap/Td Vaccines (2 - Td or Tdap) [facility] Start: 2024 Zoster Vaccines (1 of 2) Zoster Vacc pedro luis (1 of 2) [facility] Start: 04-28-2024 Hemoglobin A1c measurement Diabetes: Hemoglobin A1C [facility] Start: 02-28-2024 Hemoglobin A1c measurement Diabetes: Hemoglobin A1C [facility] Start: 02-28-2024 Lipid panel Lipid Panel [facility] Start: 06-03-2023 Glaucoma screening Diabetes: R etinopathy Screening [facility] Start: 04-28-2023 End: 04-28-2024 CBC W Auto Differential panel - Blood CBC auto differential Lab Routine Type 2 diabetes mellitus with hyperglycemia, without long-term current use of insulin (HCC) Pre-op evaluation Expected: 04/28/2023 (Approximate), Expires: 04/28/2024 [facility] Work Phone: Immunizations Immunization Date Immunization Notes Care Provider Fa anicetoty 08-18-2020 Pfizer SARS-CoV-2 Vaccination Melissa Buckley RN [facility] 07-28-2020 Pfizer SARS-CoV-2 Vaccination Melissa uBckley RN [facility] Payers Date Payer Category Payer Unknown [facility] ARE [id number] 2023-Present [address] [place] [address] Commercial [id number] 2023 Unknown [id number] 2022 Private Health Insurance [id number] 2022 Private Health Insurance [id number] 2022 Private Health Insurance [id number] Social History Date Type Detail Facility Tobacco smoking status NHIS Never smoked tobacco [facility] Start: 09-05-2022 End: 04-28-2023 Alcohol intake Current non-drinker of alcohol (finding) [facility] Start: 09-05-2022 End: 04-28-2023 History of Social function [facility] Start: 09-05-2022 End: 04-28-2023 Tobacco use panel [facility] Start: 1975 Sex Assigned At Not on file [facility] Start: 02-06-2022 Gender identity Identifies as male gender (finding) [facility] Start: 02-06-2022 Sexual orientation Heterosexual (fin ding) [facility] Start: 12-26-2022 End: 01-05-2023 Exposure to SARS-CoV-2 (event) Not sure [facility] Start: 1975 Sex Assigned At Male [facility] Clinical Notes 06-28-2020 to 04-28-2023 Assessment & Plan Note - Leslye Molina PA-C - 04/28/2023 8:52 AM ESTAssessment & Plan Note - ZHANNA Thompson 04/28/2023 8:52 AM Jackie Molina PA-C - 04/28/2023 8:00 AM EST Note Date & Type Note Facility 04-28-2023 Note Addended by: LESLYE MOLINA on: 04/29/2023 07:52 AM Modules accepted: Level of Service [facility] 04-28-2023 Evaluation + Plan note Associated [...] have delayed primary closure of the wound [facility] 04-28-2023 Miscellaneous Notes Associated Problem(s): Diabetes (HCC) [...] of the wound documented in this encounter [facility] 04-28-2023 Miscellaneous Notes Associated Problem(s): Diabetes (HCC) [...] Level of Service documented in this encounter [facility] 04-28-2023 History of Presen t illness Narrative Images from the original note were not included. [facility] [address] [facility] [address] Dept: [phone] Dept Loc: [phone] Visit type: Established Patient Reason for Visit: [...] is considered below average based on the [employer] risk calculation for surgery. [...] by mouth. ergocalciferol (Vitamin D2) 1.25 MG (86705 UT) capsule Take 1 capsule (1.25 mg) [...] prior to signing but minor errors in rig hand may have occurred. documented in this encounter [facility] 04-28-2023 History of Presen t illness Narrative Images from the original note were not included. [facility] [address] [place] [address] [address] [facility] [address] Dept: [phone] Dept Loc: [phone] Visit type: Established Patient Reason for Visit: Foot Pain (Left foot surgeries clearance ) Assessment and Plan 1. Type 2 diabetes mellitus with hyperglycemia, without long-term current use of insulin ([facility]) Assessment & Plan: - Chronic stable poorly [...] is considered below average based on the [employer] risk calculation for surgery. [...] by mouth. ergocalciferol (Vitamin D2) 1.25 MG (43448 UT) capsule Take 1 capsule (1.25 mg) [...] prior to signing but minor errors in rig hand may have occurred. documented in this encounter [facility] 04-28-2023 Note Addended by: LESLYE MOLINA on: 04/29/2023 07:52 AM Modules accepted: Level of Service [facility] 04-21-2023 Note Pt cancelled appt wi Dr Rai. Will check with pt on referrals [facility] 04-08-2023 Note Spoke with Ruben mitchell [facility]. I let her know Alexis No Showed for appointment 04/03/2023 for Medical Clearance. Pt will need to reschedule. Dr Rai will be out of office. Pt can also do a appointment with our PA Leslye Molina. [facility] 04-08-2023 Telephone encounter Note Spoke with Ruben from [facility]. I let her know Alexis No Showed for appointment 04/03/2023 for Medical Clearance. Pt will need to reschedule. Dr Rai will be out of office. Pt can also do a appointment with our PA Leslye Molina. [facility] 04-08-2023 Miscellaneous Notes Spoke with Ruben from [facility]. I let her know Alexis No Showed for appointment 04/03/2023 for Medical Clearance. Pt will need to reschedule. Dr Rai will be out of office. Pt can also do a appointment with our PA Leslye Molina. 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 Advised her that the patient does not have an appointment, she said that they may have to cancel his surgery. Best time of day caller can be reached: any Patient advised that office/PCP has 24-48 business hours to return their call: No [facility] 04-02-[address] Rai. Pt has an appt with you tomorrow. One for GI and one for ophthalmology. Wondering if pt still wants the referrals open. Please advise and send back to me. Thank you for your help. Yisel POD coordinator [facility] 03-18-2023 Note Called [facility] put pap ers on Dr Rai desk. They wants labs did not say which kind ? They want patient to have a face to face medical clearance. [facility] 03-18-2023 Telephone encounter Note Called [facility] put papers on Dr Rai desk. They wants labs did not say which kind ? They want patient to have a face to face medical clearance. [facility] 03-18-2023 Telephone encounter Note Name of caller: [facility] Contact phone number: [phone] Relationship to Patient: [facility] Provider: Dr Rai Practice: [facility] location Chief Complaint/Reason for Call: 03/18/23 [facility] calling to ask if the office /provider have received a Fax from [facility] for MEDICAL CLEARANCE needed prior to pt outpatient procedure pls advise call if needed Best time of day caller can be reached: PM Patient advised that office/PCP has 24-48 business hours to return their call: Yes [facility] 03-02-2023 Telephone encounter Note ordered [facility] 03-02-2023 Miscellaneous Notes ordered Pt says you [...] mention he needed a referral to an orthopedic/supervisor [employer] potato processing? documented in this encounter [facility] 02-27-2023 Note Does he need a refer ral to someone specific? I believe he has been seeing someone [facility] 02-27-2023 Note When patient was denise cking out he said he forgot to mention he needed a referral to an orthopedic/supervisor instant potato processing? [facility] 02-27-2023 Telephone encounter Note Pt says you referred him to Dr Pitts previously but it takes too long to get in. Thinking if their is someone in [facility] he would like to go their. [facility] 02-27-2023 Telephone encounter Note Does he need a referral to someone specific? 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 [facility] 02-27-2023 History of Presen t illness Narrative Images from the original note were not included. [facility] [address] [facility] [address] Visit type: Established Patient Reason [...] by mouth. ergocalciferol (Vitamin D2) 1.25 MG (36668 UT) capsule Take 1 capsule (1.25 mg) [...] 03/04/2023 5:04 PM documented in this encounter [facility] 01-05-2023 Note Addended by: VICENTA RAI on: 01/13/2023 02:13 PM Modules accepted: Level of Service [facility] 01-05-2023 History of Presen t illness Narrative Images from the original note were not included. [facility] [address] [place] [phone] Post-Discharge Hospital Follow Up Date of [...] Ulcer of left foot with other severity ([facility]) - [facility] [place] Orthopedics Foot/Ankle Lower Extremities - Ro 3. Type 2 diabetes mellitus with hyperglycemia, without long-term current use of insulin ([facility]) (HCC) Chronic, well controlled on current medications. [...] , Rfl: ergocalciferol (Vitamin D2) 1.25 MG (35748 UT) capsule, Take 1 capsule (1.25 mg) [...] Judgment: Judgment normal. documented in this encounter [facility] 01-05-2023 Miscellaneous Notes Addended by: VICENTA RAI on: 01/13/2023 02:13 PM Modules accepted: Level of Service documented in this encounter [facility] 01-05-2023 Note Addended by: VICENTA RAI on: 01/13/2023 02:13 PM Modules accepted: Level of Service [facility] 12-23-2022 Telephone encounter Note Last OV:09/05/22 Scheduled: 01/05/23 [facility] 12-23-2022 Miscellaneous Notes Last OV:09/05/22 Scheduled: 01/05/23 documented in this encounter [facility] 12-23-2022 Telephone encounter Note Patient aware [facility] 12-23-2022 Miscellaneous Notes Patient aware 2PM on jan 05 - this will be a double book yellow slot He is doing well. [facility]. ( Wound Center ) Patient was discharged 12/12/2022. When was he discharged? Where was he admitted? I don't see any documentation of an admission? We will schedule him next week once I Have more information Name of caller: Alexis Contact phone number: [phone] Relationship to Patient: patient Provider: Dr. Ashley Practice: [place] Chief Complaint/Reason for Call: Please assist with scheduling a JAYE appt, the pt was discharge 8/ Best time of day caller can be reached: any Patient advised that office/PCP has 24-48 business hours to return their call: N/A documented in this encounter [facility] 12-23-2022 Telephone encounter Note 2PM on jan 05 - this will be a double book yellow slot [facility] 12-19-2022 Telephone encounter Note He is doing well. [facility] 12-19-2022 Telephone encounter Note [facility]. ( Wound Center ) Patient was discharged 12/12/2022. [facility] 12-19-2022 Telephone encounter Note When was he discharged? Where was he admitted? I don't see any documentation of an admission? We will schedule him next week once I Have more information [facility] 12-18-2022 Telephone encounter Note Name of caller: Alexis Contact phone number: [phone] Relationship to Patient: patient Provider: Dr. Ashley Practice: [place] Chief Complaint/Reason for Call: Please assist with scheduling a JAYE appt, the pt was discharge 8/ Best time of day caller can be reached: any Patient advised that office/PCP has 24-48 business hours to return their call: N/A [facility] 12-08-2022 Telephone encounter Note Noted [facility] 12-08-2022 Miscellaneous Notes Noted S: the patient is calling the [facility] about a fever B: yesterday A: the [...] Patient wants to be seen Protocols used: [id number] documented in this encounter [facility] 12-08-2022 Telephone encounter Note S: the patient is calling the [facility] about a fever B: yesterday A: the [...] Patient wants to be seen Protocols used: [id number] [facility] 09-05-2022 Note Faxed referral, demo and summary of care to [facility] as requested [facility] 06-28-2020 Note Patient Outreach ([place] VAIL) ALEXIS LACKEY ([id number]) 1975 M Date Time Provider Department 06/28/20 ANDREINA, GREER PAYAN During your visit today, we recorded the following information about you: Allergies As of Date: 06/28/2020 Noted Allergy Reaction AUGMENTIN (AMOXICILLIN-POT CLAVUL*06/16/2006 4 - Hives PENICILLINS 07/07/2016 4 - Hives Date Reviewed: 06/09/2019 Reviewed by: Jani Welsh MA - Fully Assessed Order(s):SARS-COVID VACCINE 1ST DOSE APPT [[id number]] Order #: [id number] FUTURE Prescriptions as of 06/28/2020 Sig: FREESTYLE [...] Encounter Status:Closed by WINIFRED ALFARO on 07/02/20 [facility] documented [facility] this encounter [facility] Diagnosis Deformity of left foot- Primary Ulcer of left foot with other severity (HCC) documented in this encounter [facility]* Diagnosis Benign essential HTN- Primary documented in this encounter [facility]* Diagnosis Type 2 diabetes mellitus with hyperglycemia, without long-term current use of insulin (HCC)- Primary Pre-op evaluation Diabetic ulcer of left midfoot associated with type 2 diabetes mellitus, unspecified ulcer stage (HCC) documented in this encounter [facility]* Diagnosis Type 2 diabetes mellitus with hyperglycemia, without long-term current use of insulin (HCC)- Primary Pre-op evaluation Diabetic ulcer of left midfoot associated with type 2 diabetes mellitus, unspecified ulcer stage (HCC) [facility] Consultation (Routine) - Authorized Specialty Diagnoses / Procedures Referred By Casey langston Referred To Contact Orthopedic Surgery Diagnoses Deformity of left foot Ulcer of left foot with other severity (HCC) Vicenta Rai, DO [address] [place] [address] [facility] [address] [facility] [address] [place] [address] Referral ID Status Reason Start Date Expiration Date Visits Requested Visits Authorized [id number] Authorized Specialty Services Required 01/05/2023 01/05/2024 1 1 [facility] Consultation (Routine) - Pending Review Specialty Diagnoses / Procedures Referred By Casey langston Referred To Contact Orthopedic Surgery Diagnoses Deformity of left foot Ulcer of left foot with other severity (HCC) Vicenta Rai DO [address] [facility] [address] [place] [address] Referral ID Status Reason Start Date Expiration Date Visits Requested Visits Authorized [id number] Pending Review Specialty Services Required 3 03/01/2024 1 1 Scheduling Instructions [facility] per patient's request [facility] Summary Purpose Family History No Family History Records FoundNo Family History Records Found Advance Directives No Advanced Directives Records FoundNo Advanced Directives Records Found Reason for Referral Specialty Diagnoses / Procedures Referred By Casey langston Referred To Contact Diagnoses Type 2 diabetes mellitus with hyperglycemia, without long-term current use of insulin (HCC) Leslye Molina PA-C [address] [facility] [address] [place] [address] Referral ID Status Reason Start Date Expiration Date V isits Requested Visits Authorized [id number] Pending Review 1 1 Additional Source Comments (unrecognized sect ion and content) No Status Records FoundNo Status Records Found INFORMATION SOURCE (unrecogn ized section and content) DATE CREATED AUTHOR AUTHOR'S ORGANIZ ATION 05/02/2023 [facility] Reason for Visit (unrecogniz [...] Care Teams (unrecognized sec tion and content) Purchasing Manager Relationship Specialty Start Date End Date Vicenta Rai DO [address] [place] [id number] PCP - General 09/29/18 Purchasing Manager Relationship Specialty Start Date End Date Vicenta Rai DO [address] [place] [id number] PCP - General 09/29/18 Purchasing Manager Relationship Specialty Start Date End Date Vicenta Rai DO [address] [place] [id number] PCP - General 09/29/18 Purchasing Manager Relationship Specialty Start Date End Date Vicenta Rai DO [address] [place] [id number] PCP - General 09/29/18 Purchasing Manager Relationship Specialty Start Date End Date Vicenta Rai DO [address] [place] [address] PCP - General 09/29/18 Purchasing Manager Relationship Specialty Start Date End Date Vicenta Rai DO [address] [place] [address] [address] [place] [address] PCP - General 09/29/18 Purchasing Manager Relationship Specialty Start Date End Date Vicenta Rai DO [address] [place] [address] [address] [place] [address] PCP - General 09/29/18 Purchasing Manager Relationship Specialty Start Date End Date Vicenta Rai DO [address] [place] [address] [address] [place] [address] PCP - General 09/29/18 Purchasing Manager Relationship Specialty Start Date End Date Rai Vicenta Mitchell DO [address] [place] [address] PCP - General 09/29/18 FOR RECORDS PERTAINING [...] BE BASED ON THE PRIMARY CLINICAL RECORDS. [facility] [employer] [facility]. provides no warranty or guarantee of the accuracy or completeness of information in this document.
[2023-05-09 16:10] VITALS: BP 142/84; PULSE 54; RESP 18; TEMP 36.4; O2SAT 100
[2023-05-09 17:20] VITALS: BMI 30.8
--- OUTSIDE RECORDS SUMMARY | 2023-05-09 17:22 | XMS RPT_ITS | CCD ---
Author Name Unknown Address [address] [place] [address] Organization [facility] Care Team Providers Care Pocket Maker Name Role Phone Vicenta Rai DO Primary Care Provider [phone] VICENTA RIA Attending Unavailable VICENTA RAI Primary Care Unavailable VICENTA RAI Attending Unavailable VICENTA RAI Primary Care Unavailable VICENTA RAI Attending Unavailable VICENTA RAI Primary Care Unavailable LESLYE MOLINA Attending Unavailable VICENTA RAI Primary Care Unavailable Allergies Allergy Classification Reported Allergen(s) Allergy Type Date of Onset Reaction(s) Facility (11 sources) Penicillins Drug Intolerance 07-07-2016 [facility] (11 sources) Amoxicillin-Pot Clavulanate Drug Allergy 06-16-2006 [facility] Medications Current Medications Medication Drug [...] 80 mm[Hg] Leslye Barro PA-C Work Phone: [email or web address] 04-28-2023 08:22-0500 Systolic blood pressure 144 mm[Hg] Leslye Barro PA- C Work Phone: [employer] 04-28-2023 07:58-0500 Body height 195.6 cm Leslye Molina PA-C Work Phone: [employer] 04-28-2023 07:58-0500 Body mass index (BMI) [Ratio] 31.07 kg/m2 Leslye Barro PA-C Work Phone: [employer] 04-28-2023 07:58-0500 Body temperature 98.1 [degF] Leslye Barro PA-C Work Phone: [employer] 04-28-2023 07:58-0500 Body weight 118.84 kg Leslye Molina PA-C Work Phone: [facility] [employer] 04-28-2023 07:58-0500 Heart rate 69 /min Leslye Barro PA-C Work Phone: [email or web address] 04-28-2023 07:58-0500 SaO2% (BldA) [Mass fraction] 99 % Leslye Barro PA-C Work Phone: [facility] [employer] 02-27-2023 08:49-0500 Diastolic blood pressure 88 mm[Hg] Vicenta Rai DO Work Phone: [facility] [employer] 02-27-2023 08:49-0500 Systolic blood pressure 160 mm[Hg] Vicenta Rai DO Work Phone: [employer] 02-27-2023 08:18-0500 Body height 195.6 cm Vicenta Rai DO Work Phone: [employer] 02-27-2023 08:18-0500 Body mass index (BMI) [Ratio] 30.95 kg/m2 Vicenta Rai DO Work Phone: [employer] 02-27-2023 08:18-0500 Body weight 118.39 kg Vicenta Rai DO Work Phone: [facility] [employer] 02-27-2023 08:18-0500 Heart rate 60 /min Vicenta Rai DO Work Phone: [facility] [employer] 02-27-2023 08:18-0500 SaO2% (BldA) [Mass fraction] 99 % Vicenta Rai DO Work Phone: [facility] [employer] 01-05-2023 14:06-0400 Body height 195.6 cm Vicenta Rai DO Work Phone: [facility] [employer] 01-05-2023 14:06-0400 Body mass index (BMI) [Ratio] 29.76 kg/m2 Vicenta Rai DO Work Phone: [facility] [employer] 01-05-2023 14:06-0400 Body weight 113.85 kg Vicenta Rai DO Work Phone: [facility] [employer] 01-05-2023 14:06-0400 Diastolic blood pressure 81 mm[Hg] Vicenta Rai DO Work Phone: [facility] [employer] 01-05-2023 14:06-0400 Heart rate 54 /min Vicenta Rai DO Work Phone: [facility] [employer] 01-05-2023 14:06-0400 SaO2% (BldA) [Mass fraction] 98 % Vicenta Rai DO Work Phone: [facility] [employer] 01-05-2023 14:06-0400 Systolic blood pressure 134 mm[Hg] Vicenta Rai DO Work Phone: [facility] [employer] Encounters Encounter Date Encounter Type Care Provider Facility Start: 04-28-2023 End: 04-28-2023 ambulatory LESLYE MOLINA [facility] Start: 04-28-2023 End: 04-28-2023 Encounter for other preprocedural examination LESLYE MOLINA [facility] Start: 04-28-2023 End: 04-28-2023 Office outpatient visit 15 minutes Leslye Molina PA-C Work Phone: [facility] Procedures [...] or older (1 - 1-dose 60+ series) [facility] Start: 08-01-2026 DTaP/Tdap/Td Vaccine s (2 - Td or Tdap) DTaP/Tdap/Td Vaccines (2 - Td or Tdap) [facility] Start: 2024 Zoster Vaccines (1 of 2) Zoster Vacc pedro luis (1 of 2) [facility] Start: 04-28-2024 Hemoglobin A1c measurement Diabetes: Hemoglobin A1C [facility] Start: 02-28-2024 Hemoglobin A1c measurement Diabetes: Hemoglobin A1C [facility] Start: 02-28-2024 Lipid panel Lipid Panel [facility] Start: 06-03-2023 Glaucoma screening Diabetes: R etinopathy Screening [facility] Start: 04-28-2023 End: 04-28-2024 CBC W Auto Differential panel - Blood CBC auto differential Lab Routine Type 2 diabetes mellitus with hyperglycemia, without long-term current use of insulin (HCC) Pre-op evaluation Expected: 04/28/2023 (Approximate), Expires: 04/28/2024 [facility] Work Phone: Immunizations Immunization Date Immunization Notes Care Provider Fa anicetoty 08-18-2020 Pfizer SARS-CoV-2 Vaccination Melissa Buckley RN [facility] 07-28-2020 Pfizer SARS-CoV-2 Vaccination Melissa Buckley RN [facility] Payers Date Payer Category Payer Unknown [facility] ARE [id number] 2023-Present [address] [place] [address] Commercial [id number] 2023 Unknown [id number] 2022 Private Health Insurance [id number] 2022 Private Health Insurance [id number] 2022 Private Health Insurance [id number] Social History Date Type Detail Facility Tobacco smoking status NHIS Never smoked tobacco [facility] Start: 09-05-2022 End: 04-28-2023 Alcohol intake Current non-drinker of alcohol (finding) [facility] Start: 09-05-2022 End: 04-28-2023 History of Social function [facility] Start: 09-05-2022 End: 04-28-2023 Tobacco use panel [facility] Start: 1975 Sex Assigned At Not on file [facility] Start: 02-06-2022 Gender identity Identifies as male gender (finding) [facility] Start: 02-06-2022 Sexual orientation Heterosexual (fin ding) [facility] Start: 12-26-2022 End: 01-05-2023 Exposure to SARS-CoV-2 (event) Not sure [facility] Start: 1975 Sex Assigned At Male [facility] Clinical Notes 06-28-2020 to 04-28-2023 Assessment & Plan Note - Leslye Molina PA-C - 04/28/2023 8:52 AM ESTAssessment & Plan Note - ZHANNA Thompson 04/28/2023 8:52 AM Jackie Molina PA-C - 04/28/2023 8:00 AM EST Note Date & Type Note Facility 04-28-2023 Note Addended by: LESLYE MOLINA on: 04/29/2023 07:52 AM Modules accepted: Level of Service [facility] 04-28-2023 Evaluation + Plan note Associated [...] have delayed primary closure of the wound [facility] 04-28-2023 Miscellaneous Notes Associated Problem(s): [...] of the wound documented in this encounter [facility] 04-28-2023 Miscellaneous Notes Associated Problem(s): [...] Level of Service documented in this encounter [facility] 04-28-2023 History of Presen t illness Narrative Images from the original note were not included. [facility] [address] [facility] [address] Dept: [phone] Dept Loc: [phone] Visit type: Established Patient Reason for Visit: [...] is considered below average based on the [employer] risk calculation for surgery. [...] by mouth. 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 documented in this encounter [facility] 04-28-2023 History of Presen t illness Narrative Images from the original note were not included. [facility] [address] [place] [address] [address] [facility] [address] Dept: [phone] Dept Loc: [phone] Visit type: Established Patient Reason for Visit: [...] is considered below average based on the [employer] risk calculation for surgery. [...] by mouth. ergocalciferol (Vitamin D2) 1.25 MG (86883 UT) capsule Take 1 capsule (1.25 mg) [...] prior to signing but minor errors in weaver apprentice may have occurred. documented in this encounter [facility] 04-28-2023 Note Addended by: LESLYE MOLINA on: 04/29/2023 07:52 AM Modules accepted: Level of Service [facility] 04-21-2023 Note Pt cancelled appt wi Dr Rai. Will check with pt on referrals [facility] 04-08-2023 Note Spoke with Ruben mitchell [facility]. I let her know Alexis No Showed for appointment 04/03/2023 for Medical Clearance. Pt will need to reschedule. Dr Rai will be out of office. Pt can also do a appointment with our PA Leslye Molina. [facility] 04-08-2023 Telephone encounter Note Spoke with Ruben from [facility]. I let her know Alexis No Showed for appointment 04/03/2023 for Medical Clearance. Pt will need to reschedule. Dr Rai will be out of office. Pt can also do a appointment with our PA Leslye Molina. [facility] 04-08-2023 Miscellaneous Notes Spoke with Ruben from [facility]. I let her know Alexis No Showed for appointment 04/03/2023 for Medical Clearance. Pt will need to reschedule. Dr Rai will be out of office. Pt can also do a appointment with our PA Leslye Molina. Name of caller: Ruben Contact phone number: [phone] Relationship to Patient: [facility] at [facility] [place] Provider: Cecelia Practice: [facility] Chief Complaint/Reason [...] [facility] Contact phone number: [phone] Relationship to Patient: [facility] Provider: Dr Rai Practice: [facility] location Chief Complaint/Reason for Call: 03/18/23 [...] their call: Yes documented in this encounter 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 Advised her that the patient does not have an appointment, she said that they may have to cancel his surgery. Best time of day caller can be reached: any Patient advised that office/PCP has 24-48 business hours to return their call: No [facility] 04-02-[address] Rai. Pt has an appt with you tomorrow. One for GI and one for ophthalmology. Wondering if pt still wants the referrals open. Please advise and send back to me. Thank you for your help. Yisel POD coordinator [facility] 03-18-2023 Note Called [facility] put pap ers on Dr Rai desk. They wants labs did not say which kind ? They want patient to have a face to face medical clearance. [facility] 03-18-2023 Telephone encounter Note Called [facility] put papers on Dr Rai desk. They wants labs did not say which kind ? They want patient to have a face to face medical clearance. [facility] 03-18-2023 Telephone encounter Note Name of caller: [facility] Contact phone number: [phone] Relationship to Patient: [facility] Provider: Dr Rai Practice: [facility] location Chief Complaint/Reason for Call: 03/18/23 [facility] calling to ask if the office /provider have received a Fax from [facility] for MEDICAL CLEARANCE needed prior to pt outpatient procedure pls advise call if needed Best time of day caller can be reached: PM Patient advised that office/PCP has 24-48 business hours to return their call: Yes [facility] 03-02-2023 Telephone encounter Note ordered [facility] 03-02-2023 Miscellaneous Notes ordered Pt [...] mention he needed a referral to an orthopedic/mechanical systems design engineer? documented in this encounter [facility] 02-27-2023 Note Does he need a refer ral to someone specific? I believe he has been seeing someone [facility] 02-27-2023 Note When patient was denise cking out he said he forgot to mention he needed a referral to an orthopedic/mechanical systems design engineer? [facility] 02-27-2023 Telephone encounter Note Pt says you referred him to Dr Pitts previously but it takes too long to get in. Thinking if their is someone in [facility] he would like to go their. [facility] 02-27-2023 Telephone encounter Note Does he need a referral to someone specific? I believe he has been seeing someone [facility] 02-27-2023 Telephone encounter Note When patient was checking out he said he forgot to mention he needed a referral to an orthopedic/mechanical systems design engineer? [facility] 02-27-2023 History of Presen t illness Narrative Images from the original note were not included. [facility] [address] [facility] [address] Visit [...] by mouth. ergocalciferol (Vitamin D2) 1.25 MG (50581 UT) capsule Take 1 capsule (1.25 mg) [...] 03/04/2023 5:04 PM documented in this encounter [facility] 01-05-2023 Note Addended by: VICENTA RAI on: 01/13/2023 02:13 PM Modules accepted: Level of Service [facility] 01-05-2023 History of Presen t illness Narrative Images from the original note were not included. [facility] [address] [place] [phone] Post-Discharge Hospital Follow Up Date of [...] with other severity ([facility]) - [facility] Orthopedics Foot/Ankle Lower Extremities - Ro 3. Type 2 diabetes mellitus with hyperglycemia, without long-term current use of insulin ([facility]) (HCC) Chronic, well controlled on [...] , Rfl: ergocalciferol (Vitamin D2) 1.25 MG (62655 UT) capsule, Take 1 capsule (1.25 mg) [...] Judgment: Judgment normal. documented in this encounter [facility] 01-05-2023 Miscellaneous Notes Addended by: VICENTA RAI on: 01/13/2023 02:13 PM Modules accepted: Level of Service documented in this encounter [facility] 01-05-2023 Note Addended by: VICENTA RAI on: 01/13/2023 02:13 PM Modules accepted: Level of Service [facility] 12-23-2022 Telephone encounter Note Last OV:09/05/22 Scheduled: 01/05/[address] [facility] 12-23-2022 Miscellaneous Notes Last OV:09/05/22 Scheduled: 01/05/23 documented in this encounter [facility] 12-23-2022 Telephone encounter Note Patient aware [facility] 12-23-2022 Miscellaneous Notes Patient aware 2PM on jan 05 - this will be a double book yellow slot He is doing well. [facility]. ( Wound Center ) Patient was discharged 12/12/2022. When was he discharged? Where was he admitted? I don't see any documentation of an admission? We will schedule him next week once I Have more information Name of caller: Alexis Contact phone number: [phone] Relationship to Patient: patient Provider: Dr. Ashley Practice: [place] Chief Complaint/Reason for Call: Please assist with scheduling a JAYE appt, the pt was discharge 8/ Best time of day caller can be reached: any Patient advised that office/PCP has 24-48 business hours to return their call: N/A documented in this encounter [facility] 12-23-2022 Telephone encounter Note 2PM on jan 05 - this will be a double book yellow slot [facility] 12-19-2022 Telephone encounter Note He is doing well. [facility] 12-19-2022 Telephone encounter Note [facility]. ( Wound Center ) Patient was discharged 12/12/2022. [facility] 12-19-2022 Telephone encounter Note When was he discharged? Where was he admitted? I don't see any documentation of an admission? We will schedule him next week once I Have more information [facility] 12-18-2022 Telephone encounter Note Name of caller: Alexis Contact phone number: [phone] Relationship to Patient: patient Provider: Dr. Aslhey Practice: [place] Chief Complaint/Reason for Call: Please assist with scheduling a JAYE appt, the pt was discharge 8/ Best time of day caller can be reached: any Patient advised that office/PCP has 24-48 business hours to return their call: N/A [facility] 12-08-2022 Telephone encounter Note Noted [facility] 12-08-2022 Miscellaneous Notes Noted S: the patient is calling the [facility] about a fever B: yesterday A: [...] Patient wants to be seen Protocols used: [id number] documented in this encounter [facility] 12-08-2022 Telephone encounter Note S: the patient is calling the [facility] about a fever B: yesterday A: [...] Patient wants to be seen Protocols used: [id number] [facility] 09-05-2022 Note Faxed referral, demo and summary of care to [facility] as requested [facility] 06-28-2020 Note Patient Outreach ([place]) ALEXIS LACKEY ([id number]) 1975 M Date Time Provider Department 06/28/20 ANDREINA, GERER PAYAN During your visit today, we recorded the following information about you: Allergies As of Date: 06/28/2020 Noted Allergy Reaction AUGMENTIN (AMOXICILLIN-POT CLAVUL*06/16/2006 4 - Hives PENICILLINS 07/07/2016 4 - Hives Date Reviewed: 06/09/2019 Reviewed by: Jani Welsh MA - Fully Assessed Order(s):SARS-COVID VACCINE 1ST DOSE APPT [[id number]] Order #: [id number] FUTURE Prescriptions as of 06/28/2020 Sig: FREESTYLE [...] Encounter Status:Closed by WINIFRED ALFARO on 07/02/20 [facility] documented [facility] this encounter [facility] [place] [facility] Diagnosis Deformity of left foot- Primary Ulcer of left foot with other severity (HCC) documented in this encounter [facility] [place] [facility]* Diagnosis Benign essential HTN- Primary documented in this encounter [facility]* Diagnosis Type 2 diabetes mellitus with hyperglycemia, without long-term current use of insulin (HCC)- Primary Pre-op evaluation Diabetic ulcer of left midfoot associated with type 2 diabetes mellitus, unspecified ulcer stage (HCC) documented in this encounter [facility]* Diagnosis Type 2 diabetes mellitus with hyperglycemia, without long-term current use of insulin (HCC)- Primary Pre-op evaluation Diabetic ulcer of left midfoot associated with type 2 diabetes mellitus, unspecified ulcer stage (HCC) [facility] Consultation (Routine) - Authorized Specialty Diagnoses / Procedures Referred By Casey langston Referred To Contact Orthopedic Surgery Diagnoses Deformity of left foot Ulcer of left foot with other severity (HCC) Vicenta Rai, DO [address] [place] [address] [facility] [address] [place] [address] Referral ID Status Reason Start Date Expiration Date Visits Requested Visits Authorized [id number] Authorized Specialty Services Required 01/05/2023 01/05/20[address] [facility] Consultation (Routine) - Pending Review Specialty Diagnoses / Procedures Referred By Casey langston Referred To Contact Orthopedic Surgery Diagnoses Deformity of left foot Ulcer of left foot with other severity (HCC) Vicenta Rai DO [address] [facility] [address] [place] [address] Referral ID Status Reason Start Date Expiration Date Visits Requested Visits Authorized [id number] Pending Review Specialty Services Required 3 03/01/2024 1 1 Scheduling Instructions [facility] per patient's request [facility] Summary Purpose Family History No Family History Records FoundNo Family History Records Found Advance Directives No Advanced Directives Records FoundNo Advanced Directives Records Found Reason for Referral Specialty Diagnoses / Procedures Referred By Casey langston Referred To Contact Diagnoses Type 2 diabetes mellitus with hyperglycemia, without long-term current use of insulin (HCC) Leslye Molina PA-C [address] [facility] [address] [place] [address] Referral ID Status Reason Start Date Expiration Date V isits Requested Visits Authorized [id number] Pending Review 1 1 Additional Source Comments (unrecognized sect ion and content) No Status Records FoundNo Status Records Found INFORMATION SOURCE (unrecogn ized section and content) DATE CREATED AUTHOR AUTHOR'S ORGANIZ ATION 05/02/[address] [facility] Reason for [...] Care Teams (unrecognized sec tion and content) Pocket Maker Relationship Specialty Start Date End Date Vicenta Rai DO [address] [place] [address] PCP - General 09/29/18 Pocket Maker Relationship Specialty Start Date End Date Vicenta Rai DO [address] [place] [address] PCP - General 09/29/18 Pocket Maker Relationship Specialty Start Date End Date Vicenta Rai DO [address] [place] [id number] PCP - General 09/29/18 Pocket Maker Relationship Specialty Start Date End Date Vicenta Rai DO [address] [place] [address] PCP - General 09/29/18 Pocket Maker Relationship Specialty Start Date End Date Vicenta Rai DO [address] [place] [address] PCP - General 09/29/18 Pocket Maker Relationship Specialty Start Date End Date Vicenta Rai DO [address] [place] [address] [address] [place] [address] PCP - General 09/29/18 Pocket Maker Relationship Specialty Start Date End Date Vicenta Rai DO [address] [place] [address] [address] [place] [address] PCP - General 09/29/18 Pocket Maker Relationship Specialty Start Date End Date Vicenta Rai DO [address] [place] [address] [address] [place] [address] PCP - General 09/29/18 Pocket Maker Relationship Specialty Start Date End Date Rai Vicenta Mitchell DO [address] [place] [address] PCP - General 09/29/18 FOR RECORDS PERTAINING [...] BE BASED ON THE PRIMARY CLINICAL RECORDS. [facility] provides no warranty or guarantee of the accuracy or completeness of information in this document.
--- NOTE | 2023-05-09 17:45 | PCM.RX.CS ---
Consult Antibiotic Management Pharmacy has been consulted to manage selected antibiotic: Vancomycin Type of Intervention Type of Consult: New start Suspected Infection Suspected Infection: Skin/Soft tissue (DIABETIC FOOT) Prior Doses of Antibiotics Prior Doses of Antibiotics Received/Current Regimen: Vancomycin 1500 mg IV x 1 given 05/09/23 @ 1455, patient is also on IV levofloxacin 750 mg daily Labs Labs: Sodium 135 mmol/L (136-145) L 05/09/23 13:28 Potassium 4.3 mmol/L (3.5-5.1) 05/09/23 13:28 Chloride 101 mmol/L (98-107) 05/09/23 13:28 Carbon Dioxide 30.0 mmol/L (21.0-32.0) 05/09/23 13:28 Anion Gap 4 (5-15) L 05/09/23 13:28 BUN 14 mg/dL (7-18) 05/09/23 13:28 Creatinine 1.19 mg/dL (0.70-1.30) 05/09/23 13:28 Est GFR (MDRD) Af Amer 84 mL/min (>60) 05/09/23 13:28 Est GFR (MDRD) Non-Af 69 mL/min (>60) 05/09/23 13:28 BUN/Creatinine Ratio 11.8 RATIO (10-20) 05/09/23 13:28 Glucose 223 mg/dL (74-106) H 05/09/23 13:28 Dosing Weight Weight used for dosin kg Estimated Creatinine Clearance Estimated Creatinine Clearance: ~109 Goal Trough Goal Trough: 15-20 mcg/mL Pharmacy Plan for Drug Dosing Pharmacy Plan for Drug Dosing: Vancomycin 1500 mg given 05/09 @ 1455, subsequently order 1500 mg Q8H with a trough prior to the 4th dose Pharmacy Service will continue to monitor and adjust dosing as required. Follow-Up Labs Follow-Up Labs: Trough: Vancomycin Date/Time Labs Ordered Labs to be done on [date and time ordered]: 05/10/23 @ 1430
[2023-05-09 17:52] VITALS: BP 133/81; PULSE 55; RESP 16; TEMP 36.8; O2SAT 96
[2023-05-09 19:36] LABS: Hemoglobin A1c 8.2 % (3.8-5.6)
[2023-05-09 21:00] VITALS: BP 158/76; PULSE 58; RESP 18; TEMP 36.9; O2SAT 95
[2023-05-09] MEDS: oxyCODONE 5 MG Tablet PO (22:35)
[2023-05-09] MEDS: Insulin Glargine-YFGN 100 UNIT/ML Pen 10 UNIT SC (22:39)
[2023-05-09 23:00] LABS: Bedside Glucose 157 mg/dL (74-106)
[2023-05-10 03:00] VITALS: BP 166/82; PULSE 57; RESP 16; TEMP 36.9; O2SAT 97
[2023-05-10 06:15] LABS: Absolute Lymphocyte Count 1.37 X10^3/uL (0.83-4.51); Absolute Neutrophil Count 3.2 X10^3/uL (2.0-7.7); Basophil# 0.03 X10^3/uL; Basophil% 0.6 % (0-1); Eosinophil# 0.16 X10^3/uL; Eosinophils% 3.1 % (0-5); Hematocrit 38.1 % (40-54); Hemoglobin 13.8 g/dL (13.0-16.5); Lymphocyte # 1.37 X10^3/ul (0.83-4.51); Lymphocyte % 26.4 % (19-41); Mean Corp Hgb Conc 36.2 g/dL (32-36); Mean Corpuscular Hgb 30.8 pg (27.0-32.0); Mean Platelet Vol. 10.4 fl (6.2-12.0); Monocyte# 0.47 X10^3/uL; Monocyte% 9.1 % (0-10); NRBC Flagged by Analyzer 0 % (0-5); Neutrophil # 3.15 X10^3/uL (2.7-7.7); Neutrophil % 60.6 % (47-70); Platelet Count 189 K/mm3 (150-450); RBC Distribution Width CV 11.8 % (11.6-14.6); Red Blood Count 4.48 M/mm3 (4.6-6.2); White Blood Count 5.2 K/mm3 (4.4-11.0)
[2023-05-10] MEDS: Vancomycin HCl 1,500 MG in 0.9% Normal Saline (500mL Bag) 500 ML 250 MG IV ×3 (06:38→22:53)
[2023-05-10 06:42] LABS: ALB/GLOB Ratio 0.8 RATIO (0.9-2.4); AST(SGOT) 20 U/L (15-37); Alanine Aminotransfer ALT/SGPT 45 U/L (16-61); Alkaline Phosphatase 59 U/L (45-117); Anion Gap 4 (5-15); BUN 10 mg/dL (7-18); BUN/Creat Ratio 10.5 RATIO (10-20); Calcium,Total 8.9 mg/dL (8.5-10.1); Chloride 105 mmol/L (98-107); Creatinine, Serum 0.95 mg/dL (0.70-1.30); EST Glomerular Filtration Rate 90 mL/min (>60); Est Glom Filt Rate - Afr Amer 109 mL/min (>60); Estimated Creatinine Clearance 135.39 ml/min; Globulin 3.6 g/dL (2.2-4.2); Glucose 140 mg/dL (74-106); Magnesium 1.6 mg/dL (1.6-2.6); Phosphorus 3.8 mg/dL (2.5-4.9); Potassium 3.6 mmol/L (3.5-5.1); Protein, Total 6.6 g/dL (6.4-8.2); Sodium Level 138 mmol/L (136-145)
[2023-05-10 07:02] LABS: Bedside Glucose 143 mg/dL (74-106)
[2023-05-10] MEDS: Tamsulosin HCl 0.4 MG Capsule 0.400000000000000022 MG PO (07:39)
[2023-05-10 07:40] VITALS: PULSE 56
[2023-05-10] MEDS: hydroCHLOROthiazide 25 MG Tablet PO (07:40)
[2023-05-10] MEDS: Ascorbic Acid 500 MG Tablet PO (07:40)
[2023-05-10] MEDS: Enoxaparin 40 MG/0.4 ML Syringe SC (07:40)
[2023-05-10] MEDS: amLODIPine 10 MG Tablet PO (07:40)
[2023-05-10] MEDS: Metoprolol(XL)Succ 100 MG Tablet PO (07:40)
[2023-05-10] MEDS: Calcium Carbonate 500 MG Tablet 1000 MG PO (07:41)
[2023-05-10] MEDS: Lisinopril 40 MG Tablet PO (07:41)
[2023-05-10] MEDS: Zinc Sulfate 50 mg zinc (220 mg) ORAL capsule PO (07:41)
--- NOTE | 2023-05-10 07:43 | CON.PCM.SX_ITS ---
Assessment & Plan Assessment/Plan (1) 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: QUALIFIERS: Diabetic foot ulcer location: toe Laterality: left Non-pressure ulcer stage: limited to breakdown of skin Qualified Code(s): E08.621 - Diabetes mellitus due to underlying condition with foot ulcer; L97.521 - Non-pressure chronic ulcer of other part of left foot limited to breakdown of skin PLAN: -previous vascular studies in 2021 with non-compressible vessels but no arterial insufficiency by waveform analysis -if able will repeat arterial studies when splint removed to confirm no changes HPI Consult Data Date of Consult: 05/10/23 HPI Narrative HPI Narrative: ALEXIS LACKEY, is a 47 M who presents with left foot wound and positive operative cultures after debridement, tendon lengthening, metatarsal head r emoval. Cultures about a week before were also positive. He denies F/C. Wound has been present to some extent since October, had decreased in size but healing plateaued due to pressure from metatarsal not able to be alleviated due to Charcot deformity. He currently has post op splint in place with original plans to remove Thursday in office. No prior arterial interventions, vascular studies in 2021 revealed non- compressible vessels but with doppler and PVR waveforms normal to ankle. Last A1c was 8.2 a few weeks ago, up from his normal 7ish. [facility] Medical History Arthritis Bone fracture Diabetes Diabetes type 2, controlled Diabetic neuropathy associated with diabetes mellitus due to underlying condition Elevated liver enzymes Fatty liver Former smoker frozen shoulder,r arm High cholesterol HTN (hypertension) Neuropathy Non-pressure chronic ulcer of other part of left foot with fat layer exposed Seasonal allergies Shortness of breath on exertion Wears glasses Home Medications blood sugar diagnostic (OneTouch Verio test strips) #10 ea 02/11/19 [History Last Taken Unknown] blood-glucose meter (OneTouch Verio Meter) #1 ea 02/11/19 [History Last Taken Unknown] cholecalciferol (vitamin D3) 1,250 mcg (50,000 unit) capsule 50,000 unit PO QWEEK vitamin #12 caps 03/08/19 [Rx Last Taken 05/06/23] metoprolol succinate 50 mg tablet,extended release 24 hr 100 mg PO DAILY htn 11/19/19 [History Last Taken 05/07/23] amlodipine 5 mg tablet 10 mg PO DAILY htn 02/07/22 [History Last Taken 05/07/23] lisinopril 20 mg-hydrochlorothiazide 12.5 mg tablet 1 tab PO DAILY htn 02/07/22 [History Last Taken 05/06/23] tamsulosin 0.4 mg capsule 0.4 mg PO Q24H md ordered 02/07/22 [History Last Taken 05/08/23] biotin 100 mcg PO DAILY daily vitamin 12/10/22 [History Last Taken 05/06/23] calcium citrate 500 mg PO DAILY daily vitamin 12/10/22 [History Last Taken 05/06/23] curhliah-htxb-wro-folic acid 18 mg-0.4 mg tablet (One Daily Complete) 1 tab PO DAILY vitamin 12/10/22 [History Last Taken 05/06/23] vit B12 50 mcg-iodine 75 mcg-mag 100 iw-ityg-zfrxsnfu-herb 193 capsule 1 cap PO DAILY vitamin 12/10/22 [History Last Taken 05/06/23] zinc 50 mg tablet 50 mg PO DAILY vitamin 12/10/22 [History Last Taken 05/06/23] metformin 1,000 mg tablet 1,000 mg PO BID diabetes 30 days #60 tabs 12/12/22 [Rx Last Taken 05/06/23 09:00] ascorbic acid (vitamin C) 500 mg tablet,extended release (C Complex) 500 mg PO DAILY daily vitamin 05/01/23 [History Last Taken 05/06/23] tirzepatide 2.5 mg/0.5 mL subcutaneous pen injector (Mounjaro) 2.5 mg subcut QWEEK Diabetes 05/01/23 [History Last Taken 05/07/23] oxycodone 5 mg capsule 5 mg PO Q6H PRN pain 7 days #28 caps 05/07/23 [Rx Last Taken Unknown] Allergy/AdvReac Type Severity Reaction Status Date / Time amoxicillin [From Augmentin] Allergy Severe Rash Verified 05/09/23 13:11 clavulanic acid Allergy Severe Rash Verified 05/09/23 13:11 [From Augmentin] Penicillins Allergy Unknown Hives Verified 05/09/23 13:11 Family History Mother Asthma Hypertension Father Hypertension Grandmother Cancer Unknown Arthritis Diabetes Other Diverticulitis Family history of high cholesterol Glaucoma Heart disease Kidney disease Renal failure Surgical History H/O bariatric surgery History of liver biopsy Social History (Updated 05/09/23 @ 17:[address] Kendy Mendez DO) household members: family housing: house Smoking Status: Former smoker alcohol intake: never substance use type: does not use ROS Constitutional Constitutional: Denies chills, fever(s), frequent falls, lethargy or weakness Eyes Eyes: Denies blind spots, change in vision or loss of vision ENT HEENT: Denies bleeding gums, hoarseness or sore throat Cardiovascular Cardiovascular: Denies abdominal pain, bluish discoloration of hand/feet, chest pain with activity, claudication, cold extremities, cyanosis, dyspnea on exertion, erythema on extremities, irregular heart rhythm, leg edema, leg ulcers, numbness in extremities or weakness in extremities Respiratory/Chest Respiratory/Chest: Denies cough, excessive phlegm production, shortness of breath at rest, shortness of breath with exertion or wheezing Gastrointestinal Gastrointestinal: Denies anorexia, change in stool character, constipation, diarrhea, melena or rectal bleeding Genitourinary Genitourinary: Denies dysuria or hematuria Musculoskeletal Musculoskeletal: Denies abnormal gait Integumentary Integumentary: Reports non-healing lesions and wounds; Denies erythema Neurologic Neurologic: Denies abnormal speech, focal weakness, headache(s), loss of vision, numbness, paresthesias or sensory deficit Hematologic/Lymphatic Hematologic/Lymphatic: Denies easy bleeding, easy bruising or lymphadenopathy Physical Exam Const alert, oriented x3, no apparent distress and healthy appearing General Appearance: cooperative; Negative for combative or lethargic Orientation / Consciousness: awake Exam Limitations: no limitations HEENT Head and Scalp: normocephalic and atraumatic Eyes EOMs intact bilaterally General Eye: normal appearance of both eyes Neck full ROM, no lymphadenopathy and thyroid normal General: trachea midline; Negative for lymphadenopathy or tenderness Thyroid: thyroid normal Resp normal respiratory effort and no use of accessory muscles Effort and Inspection: Negative for labored, stridor or audible wheezes Cardio regular rate and regular rhythm Cardio Narrative: -LLE with splint, unable to assess pedal pulses Peripheral Pulses: brachial pulses present, radial pulses present, femoral pul ses present, popliteal pulses present, posterior tibial pulses present right and dorsalis pedis pulses present right Back/Spine Cervical Spine: cervical ROM normal Extremity full ROM, normal capillary refill and no clubbing, cyanosis or edema Skin no rashes or lesions noted and no wounds Neuro oriented x3, CN's II-XII intact bilaterally, no focal motor deficits and no sensory deficits noted Psych thought process normal, cooperative, affect normal, speech normal and activity/motor behavior normal Lab / Micro Data 05/10/23 05:20 05/10/23 05:20 Labs: Laboratory Results - last 24 hr 05/09/23 13:28: WBC 7.1, RBC 4.98, Hgb 14.9, Hct 42.8, MCV 85.9, MCH 29.9, MCHC 34.8, RDW Std Deviation 36.4, RDW Coeff of Julianna 11.7, Plt Count 213, MPV 10.6, Immature Gran % (Auto) 0.400, Neut % (Auto) 67.9, Lymph % (Auto) 21.9, [place] % (Auto) 8.3, Eos % (Auto) 1.1, Baso % (Auto) 0.4, Absolute Neuts (auto) 4.8, Absolute Lymphs (auto) 1.55, Nucleated RBC % 0, ESR 31 H, Sodium 135 L, Potassium 4.3, Chloride 101, Carbon Dioxide 30.0, Anion Gap 4 L, BUN 14, Cre atinine 1.19, Estim Creat Clear Calc 109.03, Est GFR (MDRD) Af Amer 84, Est GFR (MDRD) Non-Af 69, BUN/Creatinine Ratio 11.8, Glucose 223 H, Hemoglobin A1c 8.2 H , Calcium 9.9, C-React Prot Ext Range 24.00 H 05/09/23 22:37: POC Glucose 157 H 05/10/23 05:20: WBC 5.2, RBC 4.48 L, Hgb 13.8, Hct 38.1 L, MCV 85.0, MCH 30.8, MCHC 36.2 H, RDW Std Deviation 36.0, RDW Coeff of Julianna 11.8, Plt Count 189, MPV 10.4, Immature Gran % (Auto) 0.200, Neut % (Auto) 60.6, Lymph % (Auto) 26.4, [place] % (Auto) 9.1, Eos % (Auto) 3.1, Baso % (Auto) 0.6, Absolute Neuts (auto) 3.2, Absolute Lymphs (auto) 1.37, Nucleated RBC % 0, Sodium 138, Potassium 3.6, Chloride 105, Carbon Dioxide 29.0, Anion Gap 4 L, BUN 10, Creatinine 0.95, Estim Creat Clear Calc 135.39, Est GFR (MDRD) Af Amer 109, Est GFR (MDRD) Non-Af 90, BUN/Creatinine Ratio 10.5, Glucose 140 H, Calcium 8.9, Phosphorus 3.8, Magnesium 1.6, Total Bilirubin 0.90, AST 20, ALT 45, Alkaline Phosphatase 59, Total Protein 6.6, Albumin 3.0 L, Globulin 3.6, Albumin/Globulin Ratio 0.8 L 05/10/23 06:42: POC Glucose 143 H Charges/Coding Visit Charges Inpatient E&M: 97522 Init Hosp L3
--- NOTE | 2023-05-10 07:49 | PCM.PN.HOSP ---
Reason for Visit Reason for Visit: Diagnoses Cutaneous abscess of left foot (05/09/23) Charcot's joint, left ankle and foot (05/09/23) Hyperglycemia, unspecified (05/09/23) Subjective Subjective Patient still has some pain depending on what he is doing but feeling fair overall. Objective Data Objective Data Vital Signs: Vital Signs Temp Pulse Resp BP Pulse Ox O2 Del Method 98.5 F 56 L 16 166/82 H 97 Room Air 05/10/23 03:00 05/10/23 07:40 05/10/23 03:00 05/10/23 03:00 05/10/23 03:00 05/10/23 03:00 Oxygen Delivery Method Room Air Weight: 118 kg Body Mass Index (BMI) 30.8 Intake & Output: Intake and Output for Last 24 Hours 05/08/23 05/09/23 05/10/23 23:59 23:59 23:59 Intake Total 780 / 1080 1180 / 1180 Output Total 700 / 700 Balance 780 / 1080 480 / 480 Lab / Micro Data 05/10/23 05:20 05/10/23 05:20 Labs: Laboratory Results - last 24 hr 05/09/23 13:28: WBC 7.1, RBC 4.98, Hgb 14.9, Hct 42.8, MCV 85.9, MCH 29.9, MCHC 34.8, RDW Std Deviation 36.4, RDW Coeff of Julianna 11.7, Plt Count 213, MPV 10.6, Immature Gran % (Auto) 0.400, Neut % (Auto) 67.9, Lymph % (Auto) 21.9, [place] % (Auto) 8.3, Eos % (Auto) 1.1, Baso % (Auto) 0.4, Absolute Neuts (auto) 4.8, Absolute Lymphs (auto) 1.55, Nucleated RBC % 0, ESR 31 H, Sodium 135 L, Potassium 4.3, Chloride 101, Carbon Dioxide 30.0, Anion Gap 4 L, BUN 14, Creatinine 1.19, Estim Creat Clear Calc 109.03, Est GFR (MDRD) Af Amer 84, Est GFR (MDRD) Non-Af 69, BUN/Creatinine Ratio 11.8, Glucose 223 H, Hemoglobin A1c 8.2 H, Calcium 9.9, C-React Prot Ext Range 24.00 H 05/09/23 22:37: POC Glucose 157 H 05/10/23 05:20: WBC 5.2, RBC 4.48 L, Hgb 13.8, Hct 38.1 L, MCV 85.0, MCH 30.8, MCHC 36.2 H, RDW Std Deviation 36.0, RDW Coeff of Julianna 11.8, Plt Count 189, MPV 10.4, Immature Gran % (Auto) 0.200, Neut % (Auto) 60.6, Lymph % (Auto) 26.4, [place] % (Auto) 9.1, Eos % (Auto) 3.1, Baso % (Auto) 0.6, Absolute Neuts (auto) 3.2, Absolute Lymphs (auto) 1.37, Nucleated RBC % 0, Sodium 138, Potassium 3.6, Chloride 105, Carbon Dioxide 29.0, Anion Gap 4 L, BUN 10, Creatinine 0.95, Estim Creat Clear Calc 135.39, Est GFR (MDRD) Af Amer 109, Est GFR (MDRD) Non-Af 90, BUN/Creatinine Ratio 10.5, Glucose 140 H, Calcium 8.9, Phosphorus 3.8, Magnesium 1.6, Total Bilirubin 0.90, AST 20, ALT 45, Alkaline Phosphatase 59, Total Protein 6.6, Albumin 3.0 L, Globulin 3.6, Albumin/Globulin Ratio 0.8 L 05/10/23 06:42: POC Glucose 143 H Physical Exam Narrative General: Alert, oriented, no apparent distress HEENT: Atraumatic, normocephalic Eyes: Anicteric, normal conjunctiva, extraocular movements grossly intact Neck: Supple Respiratory: Clear to auscultation bilaterally, normal respiratory effort Cardiovascular: Regular rate and rhythm GI: Soft, nontender, nondistended Extremities: Left lower extremity in splint Musculoskeletal: Moving all extremities Neuro: No overt focal neurological deficits Skin: No rashes appreciated Psych: Cooperative Assessment & Plan Assessment/Plan (1) Osteomyelitis of foot, left, acute: (2) Charcot's joint, left ankle and foot: PLAN: Plan Left lower extremity infected diabetic neuropathic wound -Postop day 2 status post tendo Achilles lengthening, plantar planing with 6 excision plantar fifth metatarsal base for bone biopsy and culture, wound debridement with graft application -Cultures are showing alphahemolytic strep, Enterococcus faecalis, and Pseudomonas and there is also some anaerobic growth -Will start on vancomycin to cover the Enterococcus, Levaquin to cover the Pseudomonas and possible anaerobe -Patient has penicillin allergy -Consult Dr. Lucero -Consult vascular surgery-Dr. Dunlap -Consult infectious disease -Continue with nonweightbearing status -As needed Tylenol and oxycodone for pain -05/10: Podiatry, vascular, infectious disease consulted, continue antibiotics and supportive care, awaiting cultures. Discussed with patient and his and he is supposed to have splint come off on Thursday, was asked if it could come off tomorrow so vascular studies could potentially be completed prior to discharge. Discussed with Dr. Lucero and splint can come off tomorrow DM-2 with hyperglycemia -Current blood sugar is elevated at 223 -Check hemoglobin A1c -It appears that patient is on 10 and metformin at home-will hold for now -Lantus 10 units SQ at at bedtime -SSI -05/10: Glucose 143 this a.m., continue present management Hypertension -Continue home amlodipine -Continue home lisinopril/hydrochlorothiazide -Continue home metoprolol -05/10: BP 166/82 and heart rates been in the 50s, may need to decrease metoprolol if patient having any fatigue or dizziness or any lower blood pressures BPH with obstruction -Continue home Flomax History of tobacco abuse -Remote Vitamin D deficiency -Restart vitamin D supplementation at discharge Obesity -BMI 31.4 -Patient status post gastric bypass surgery DVT prophylaxis -Lovenox daily CODE STATUS -full code is verified on admission Time spent in the patient's overall evaluation,decision-making process, review of diagnostic data, adjustment of management, discussion with other providers, nursing nursing and ancillary staff involved in patient's care documentation, 46 minutes Charges/Coding Visit Charges Inpatient E&M: 30580 Subs Hosp L2
[2023-05-10 08:17] VITALS: BP 163/84; PULSE 56; RESP 16; TEMP 37.1; O2SAT 97
--- NOTE | 2023-05-10 08:56 | PCM.CONS.GEN ---
Assessment & Plan Assessment/Plan (1) Osteomyelitis of foot, left, acute: PLAN: Exam performed Vital signs stable, no leukocytosis We will plan for PICC line with long-term IV antibiotics pending final C&S. Recommend ID consult. Patient stable for discharge once antibiotics clarified. Bone cultures positive for possible Enterococcus, alphahemolytic organism, and an additional gram-positive organisms Splint left clean dry and intact to left lower extremity Continue nonweightbearing left lower extremity Next dressing change planned for Thursday either in the wound care center in the outpatient setting or if patient is still in the hospital in the hospital. Will continue to follow closely, please feel free to reach out to me with any questions. (2) Charcot's joint, left ankle and foot: HPI Consult Data Date of Consult: 05/10/23 HPI Narrative HPI Narrative: ALEXIS LACKEY, is a 47 M who presents left foot osteomyelitis status post plantar planing tendo Achilles lengthening with wound debridement and graft application on 05/07/2023. Patient denies constitutional symptoms. Patient denies pain. Patient been compliant with nonweightbearing keeping dressing clean dry and intact. Over the weekend patient's cultures came back positive from the bone cultures of the fifth metatarsal base. Patient's contacted me. I recommended long-term IV antibiotics. Patient presented for ED for admission. No other complaints at current. [facility] Medical History Arthritis Bone fracture Diabetes Diabetes type 2, controlled Diabetic neuropathy associated with diabetes mellitus due to underlying condition Elevated liver enzymes Fatty liver Former smoker frozen shoulder,r arm High cholesterol HTN (hypertension) Neuropathy Non-pressure chronic ulcer of other part of left foot with fat layer exposed Seasonal allergies Shortness of breath on exertion Wears glasses Home Medications blood sugar diagnostic (OneTouch Verio test strips) #10 ea 02/11/19 [History Last Taken Unknown] blood-glucose meter (OneTouch Verio Meter) #1 ea 02/11/19 [History Last Taken Unknown] cholecalciferol (vitamin D3) 1,250 mcg (50,000 unit) capsule 50,000 unit PO QWEEK vitamin #12 caps 03/08/19 [Rx Last Taken 05/06/23] metoprolol succinate 50 mg tablet,extended release 24 hr 100 mg PO DAILY htn 11/19/19 [History Last Taken 05/07/23] amlodipine 5 mg tablet 10 mg PO DAILY htn 02/07/22 [History Last Taken 05/07/23] lisinopril 20 mg-hydrochlorothiazide 12.5 mg tablet 1 tab PO DAILY htn 02/07/22 [History Last Taken 05/06/23] tamsulosin 0.4 mg capsule 0.4 mg PO Q24H md ordered 02/07/22 [History Last Taken 05/08/23] biotin 100 mcg PO DAILY daily vitamin 12/10/22 [History Last Taken 05/06/23] calcium citrate 500 mg PO DAILY daily vitamin 12/10/22 [History Last Taken 05/06/23] kmjhekak-yfws-zfz-folic acid 18 mg-0.4 mg tablet (One Daily Complete) 1 tab PO DAILY vitamin 12/10/22 [History Last Taken 05/06/23] vit B12 50 mcg-iodine 75 mcg-mag 100 wl-zvbs-svlqfcls-herb 193 capsule 1 cap PO DAILY vitamin 12/10/22 [History Last Taken 05/06/23] zinc 50 mg tablet 50 mg PO DAILY vitamin 12/10/22 [History Last Taken 05/06/23] metformin 1,000 mg tablet 1,000 mg PO BID diabetes 30 days #60 tabs 12/12/22 [Rx Last Taken 05/06/23 09:00] ascorbic acid (vitamin C) 500 mg tablet,extended release (C Complex) 500 mg PO DAILY daily vitamin 05/01/23 [History Last Taken 05/06/23] tirzepatide 2.5 mg/0.5 mL subcutaneous pen injector (Mounjaro) 2.5 mg subcut QWEEK Diabetes 05/01/23 [History Last Taken 05/07/23] oxycodone 5 mg capsule 5 mg PO Q6H PRN pain 7 days #28 caps 05/07/23 [Rx Last Taken Unknown] Allergy/AdvReac Type Severity Reaction Status Date / Time amoxicillin [From Augmentin] Allergy Severe Rash Verified 05/09/23 13:11 clavulanic acid Allergy Severe Rash Verified 05/09/23 13:11 [From Augmentin] Penicillins Allergy Unknown Hives Verified 05/09/23 13:11 Family History Mother Asthma Hypertension Father Hypertension Grandmother Cancer Unknown Arthritis Diabetes Other Diverticulitis Family history of high cholesterol Glaucoma Heart disease Kidney disease Renal failure Surgical History H/O bariatric surgery History of liver biopsy Social History household members: family housing: house Smoking Status: Former smoker alcohol intake: never substance use type: does not use Physical Exam Narrative Neurologic: Light touch protective sensation absent to bilateral feet. Vascular: Capillary fill time brisk to all digits bilaterally. Dermatologic: Splint left intact to left lower extremity. Musculoskeletal: No sign DVT bilaterally. Const alert and oriented x3 Lab / Micro Data 05/10/23 05:20 05/10/23 05:20 Labs: Laboratory Results - last 24 hr 05/09/23 13:28: WBC 7.1, RBC 4.98, Hgb 14.9, Hct 42.8, MCV 85.9, MCH 29.9, MCHC 34.8, RDW Std Deviation 36.4, RDW Coeff of Julianna 11.7, Plt Count 213, MPV 10.6, Immature Gran % (Auto) 0.400, Neut % (Auto) 67.9, Lymph % (Auto) 21.9, [place] % (Auto) 8.3, Eos % (Auto) 1.1, Baso % (Auto) 0.4, Absolute Neuts (auto) 4.8, Absolute Lymphs (auto) 1.55, Nucleated RBC % 0, ESR 31 H, Sodium 135 L, Potassium 4.3, Chloride 101, Carbon Dioxide 30.0, Anion Gap 4 L, BUN 14, Creatinine 1.19, Estim Creat Clear Calc 109.03, Est GFR (MDRD) Af Amer 84, Est GFR (MDRD) Non-Af 69, BUN/Creatinine Ratio 11.8, Glucose 223 H, Hemoglobin A1c 8.2 H, Calcium 9.9, C-React Prot Ext Range 24.00 H 05/09/23 22:37: POC Glucose 157 H 05/10/23 05:20: WBC 5.2, RBC 4.48 L, Hgb 13.8, Hct 38.1 L, MCV 85.0, MCH 30.8, MCHC 36.2 H, RDW Std Deviation 36.0, RDW Coeff of [place] 11.8, Plt Count 189, MPV 10.4, Immature Gran % (Auto) 0.200, Neut % (Auto) 60.6, Lymph % (Auto) 26.4, [place] % (Auto) 9.1, Eos % (Auto) 3.1, Baso % (Auto) 0.6, Absolute Neuts (auto) 3.2, Absolute Lymphs (auto) 1.37, Nucleated RBC % 0, Sodium 138, Potassium 3.6, Chloride 105, Carbon Dioxide 29.0, Anion Gap 4 L, BUN 10, Creatinine 0.95, Estim Creat Clear Calc 135.39, Est GFR (MDRD) Af Amer 109, Est GFR (MDRD) Non-Af 90, BUN/Creatinine Ratio 10.5, Glucose 140 H, Calcium 8.9, Phosphorus 3.8, Magnesium 1.6, Total Bilirubin 0.90, AST 20, ALT 45, Alkaline Phosphatase 59, Total Protein 6.6, Albumin 3.0 L, Globulin 3.6, Albumin/Globulin Ratio 0.8 L 05/10/23 06:42: POC Glucose 143 H
[2023-05-10] MEDS: levoFLOXacin IV 750 MG/150 ML BAG 100 MG IV (10:28)
[2023-05-10] MEDS: Insulin Lispro 100 UNIT/ML INSULN.PEN SC ×2 (11:19→15:35)
[2023-05-10 11:38] LABS: Bedside Glucose 233 mg/dL (74-106)
[2023-05-10 12:06] VITALS: BP 158/82; PULSE 58; RESP 16; TEMP 36.7; O2SAT 97
[2023-05-10 14:50] LABS: Vancomycin, Trough Level 18.7 ug/mL (5.0-15.0)
--- NOTE | 2023-05-10 14:56 | PCM.RX.CS ---
Consult Antibiotic Management Pharmacy has been consulted to manage selected antibiotic: Vancomycin Type of Intervention Type of Consult: Follow-up Suspected Infection Suspected Infection: Skin/Soft tissue (LEFT FOOT INFECTION) Prior Doses of Antibiotics Prior Doses of Antibiotics Received/Current Regimen: Vancomycin 1500 mg give 05/09/23 @ 1455, 05/09/23 @ 2234, and 05/10/23 @ 0638 Labs Labs: Sodium 138 mmol/L (136-145) 05/10/23 05:20 Potassium 3.6 mmol/L (3.5-5.1) 05/10/23 05:20 Chloride 105 mmol/L (98-107) 05/10/23 05:20 Carbon Dioxide 29.0 mmol/L (21.0-32.0) 05/10/23 05:20 Anion Gap 4 (5-15) L 05/10/23 05:20 BUN 10 mg/dL (7-18) 05/10/23 05:20 Creatinine 0.95 mg/dL (0.70-1.30) 05/10/23 05:20 Est GFR (MDRD) Af Amer 109 mL/min (>60) 05/10/23 05:20 Est GFR (MDRD) Non-Af 90 mL/min (>60) 05/10/23 05:20 BUN/Creatinine Ratio 10.5 RATIO (10-20) 05/10/23 05:20 Glucose 140 mg/dL (74-106) H 05/10/23 05:20 Vancomycin Trough 18.7 ug/mL (5.0-15.0) H 05/10/23 13:57 Dosing Weight Weight used for dosin kg Estimated Creatinine Clearance Estimated Creatinine Clearance: ~135 Goal Trough Goal Trough: 15-20 mcg/mL Pharmacy Plan for Drug Dosing Pharmacy Plan for Drug Dosing: Vancomycin trough = 18.7 drawn 7 hours after beginning of previous dose. Continue current dosing of 1500 mg Q8H, recheck trough in 2 days. Pharmacy Service will continue to monitor and adjust dosing as required. Follow-Up Labs Follow-Up Labs: Trough: Vancomycin Date/Time Labs Ordered Labs to be done on [date and time ordered]: 05/12/23 @ 1434
[2023-05-10 15:43] VITALS: BP 154/76; PULSE 55; RESP 16; TEMP 36.3; O2SAT 99
[2023-05-10 15:56] LABS: Bedside Glucose 206 mg/dL (74-106)
[2023-05-10] MEDS: oxyCODONE 5 MG Tablet PO (20:28)
[2023-05-10 20:48] VITALS: BP 163/86; PULSE 56; RESP 16; TEMP 36.7; O2SAT 98
[2023-05-10] MEDS: Insulin Glargine-YFGN 100 UNIT/ML Pen 10 UNIT SC (22:53)
[2023-05-10 23:14] LABS: Bedside Glucose 132 mg/dL (74-106)
[2023-05-11] VITALS (7 sets, daily range): BP systolic 146–168; BP diastolic 77–81; PULSE 56–60; RESP 16; TEMP 36.6–36.7; O2SAT 95–97
[2023-05-11 05:48] LABS: Absolute Lymphocyte Count 1.98 X10^3/uL (0.83-4.51); Absolute Neutrophil Count 3.1 X10^3/uL (2.0-7.7); Basophil# 0.04 X10^3/uL; Basophil% 0.7 % (0-1); Eosinophil# 0.19 X10^3/uL; Eosinophils% 3.3 % (0-5); Hematocrit 41.7 % (40-54); Hemoglobin 14.5 g/dL (13.0-16.5); Lymphocyte # 1.98 X10^3/ul (0.83-4.51); Lymphocyte % 34.3 % (19-41); Mean Corp Hgb Conc 34.8 g/dL (32-36); Mean Corpuscular Hgb 29.8 pg (27.0-32.0); Mean Corpuscular Volume 85.6 fL (80-94); Mean Platelet Vol. 10.1 fl (6.2-12.0); Monocyte# 0.48 X10^3/uL; Monocyte% 8.3 % (0-10); NRBC Flagged by Analyzer 0 % (0-5); Neutrophil # 3.07 X10^3/uL (2.7-7.7); Neutrophil % 53.2 % (47-70); Platelet Count 239 K/mm3 (150-450); RBC Distribution Width CV 11.7 % (11.6-14.6); RBC Distribution Width SD 36.4 fl (35.1-43.9); Red Blood Count 4.87 M/mm3 (4.6-6.2); White Blood Count 5.8 K/mm3 (4.4-11.0)
[2023-05-11] MEDS: oxyCODONE 5 MG Tablet PO ×3 (06:28→21:19)
[2023-05-11] MEDS: Vancomycin HCl 1,500 MG in 0.9% Normal Saline (500mL Bag) 500 ML 250 MG IV (06:28)
[2023-05-11] MEDS: Insulin Lispro 100 UNIT/ML INSULN.PEN SC ×2 (06:33→11:42)
[2023-05-11 06:52] LABS: Anion Gap 8 (5-15); BUN 12 mg/dL (7-18); BUN/Creat Ratio 11.5 RATIO (10-20); CRP 8.12 mg/L (0.0-3.0); Calcium,Total 9.5 mg/dL (8.5-10.1); Chloride 102 mmol/L (98-107); Creatinine, Serum 1.04 mg/dL (0.70-1.30); EST Glomerular Filtration Rate 81 mL/min (>60); Est Glom Filt Rate - Afr Amer 98 mL/min (>60); Estimated Creatinine Clearance 123.67 ml/min; Glucose 148 mg/dL (74-106); Potassium 3.6 mmol/L (3.5-5.1); Sodium Level 139 mmol/L (136-145)
[2023-05-11 06:55] LABS: Bedside Glucose 167 mg/dL (74-106)
--- NOTE | 2023-05-11 07:32 | ART_ITS ---
Reason For Study: Ulcer Procedure A bilateral lower extremity continuous wave Doppler with analog waveform analysis,segmental pressures,and ankle brachial indexes without exercise. Left Segmental Pressures Left brachial= 150mmHg. Left posterior tibial artery = 205mmHg. Left dorsalis pedis artery = 192mmHg. Left digit = 116 mmHg. The left dorsalis pedis waveforms are triphasic. The left posterior tibial artery waveforms are triphasic. Right Segmental Pressures Right posterior tibial artery = 211mmHg. Right dorsalis pedis artery = >254mmHg. Right digit = 172 mmHg. The right dorsalis pedis waveforms are triphasic. The right posterior tibial artery waveforms are triphasic. Indices The right ankle brachial index by the dorsalis pedis is NC. The right ankle brachial index by the posterior tibial artery is 1.41. The right digital-brachial index is 1.15. The left ankle brachial index by the dorsalis pedis is 1.28. The left ankle brachial index by the posterior tibial artery is 1.37. The left digital-brachial index is 0.77. VL/Lower Ext Art Exam w/o Exercis Interpretation Summary Right RACHEL 1.41, artificially elevated. TBI and Doppler/PVR waveforms of the rig ht leg normal at rest. Left RACHEL 1.37, normal. TBI and Doppler/PVR waveforms of the left leg normal at rest. Ordering Physician: Bryan Dunlap Referring Physician: Vicetna Rai Performed By: Keren Lloyd RVT
[2023-05-11] MEDS: Juven (unflavored) Packet 2 PACKET PO (08:22)
[2023-05-11] MEDS: levoFLOXacin IV 750 MG/150 ML BAG 100 MG IV (10:25)
[2023-05-11] MEDS: amLODIPine 10 MG Tablet PO (10:29)
[2023-05-11] MEDS: Zinc Sulfate 50 mg zinc (220 mg) ORAL capsule PO (10:29)
[2023-05-11] MEDS: Lisinopril 40 MG Tablet PO (10:29)
[2023-05-11] MEDS: Enoxaparin 40 MG/0.4 ML Syringe SC (10:29)
[2023-05-11] MEDS: Ascorbic Acid 500 MG Tablet PO (10:29)
[2023-05-11] MEDS: Calcium Carbonate 500 MG Tablet 1000 MG PO (10:29)
[2023-05-11] MEDS: Tamsulosin HCl 0.4 MG Capsule 0.400000000000000022 MG PO (10:29)
[2023-05-11] MEDS: hydroCHLOROthiazide 25 MG Tablet PO (10:30)
[2023-05-11 12:04] LABS: Bedside Glucose 221 mg/dL (74-106)
--- NOTE | 2023-05-11 12:42 | CASEMGMT ---
MEGHA SHAFER Assessment Face to Face with patient for initial transition planning/care coordination assessment. MEGHA SHAFER introduced self and role at [facility], pt voices understanding. Pt is A&Ox4 and is resting comfortably in chair and is calm. Pt at bedside. Care providers, pharmacy, and demographics verified. Admitting dx: Infected Diabetic foot wound LACE Strata: 3 PCP: Cecelia Specialists: Nic (Podiatry). Preferred Pharmacy: [facility] Insurance: [facility] Prescription Benefit: Yes LNOK: Candis Olivia (), she is a nurse. Living Arrangements: Pt lives at [facility] with his and 4 kids in a 2 story home with a basement. Pt states there is a full flight of steps (16) with handrails to enter the home. Pt denies issues using the steps normally. ADLs/IADLs: Ind with ADLs. helps with IADLs. Transportation: Pt and pt drive DME: Pt states he recenlty started taking a weekly insulin medication and states they are getting low on test strips and lancets. Will follow. Denies home O2 use. Pt states he occasionally uses a walker. Pt states he uses a knee scooter. HHC/SNF: Denies HHC/ SNF. States he was going to the wound center once per week prior to receiving surgery on . Pt states that he was going to Dr. Lucero's office once a week for wound care/assessment as well. Pt was changing the dressing in between these visits. Pt states he went to outpt [place] through [facility] 4 years ago for his Lt ankle. States he was seen for about 2 months at that time. Pt?s goal: DC home with his and 4 kids. Plan: Per Podiatry note, pt may need [facility] IV ATBs. Pt refuses infusion center and states he would be willing to have HHC set up. 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 We are waiting for ID to see this pt. Will provide list of local in-network agencies for HHC and infusion companies. Boom Victoria RN, CM
--- NOTE | 2023-05-11 13:01 | CASEMGMT ---
Discharge Planning A list of?HH providers including quality and resource use data and consistent with the patient's preferred geographic region, medical needs, and insurance network was created in CarePort Guide.? This list was provided to the RN SONI. Melvi Gomez, Discharge Planning Asst.
--- NOTE | 2023-05-11 13:06 | PN_ITS ---
Subjective Subjective Patient seen and examined. He admitted to some mild pain in his left foot, but had no other complaints. REview of systems is otherwise negative. He has remained hemodynamically stable. Objective Data Objective Data Vital Signs: Vital Signs Temp Pulse Resp BP Pulse Ox O2 Del Method 97.8 F 58 L 16 153/77 H 97 Room Air 05/11/23 10:14 05/11/23 10:14 05/11/23 10:14 05/11/23 10:14 05/11/23 10:14 05/11/23 10:14 Oxygen Delivery Method Room Air Weight: 260 lb 2.327 oz Body Mass Index (BMI) 30.8 Intake & Output: Intake and Output for Last 24 Hours 05/09/23 05/10/23 05/11/23 23:59 23:59 23:59 Intake Total 780 / 1080 3640 / 4040 1960 / 1960 Output Total 700 / 700 750 / 750 Balance 780 / 1080 2940 / 3340 1210 / 1210 Lab / Micro Data 05/11/23 05:29 05/11/23 05:29 Labs: Laboratory Results - last 24 hr 05/10/23 13:57: Vancomycin Trough 18.7 H 05/10/23 15:34: POC Glucose 206 H 05/10/23 22:52: POC Glucose 132 H 05/11/23 05:29: WBC 5.8, RBC 4.87, Hgb 14.5, Hct 41.7, MCV 85.6, MCH 29.8, MCHC 34.8, RDW Std Deviation 36.4, RDW Coeff of Julianna 11.7, Plt Count 239, MPV 10.1, Immature Gran % (Auto) 0.200, Neut % (Auto) 53.2, Lymph % (Auto) 34.3, [place] % (Auto) 8.3, Eos % (Auto) 3.3, Baso % (Auto) 0.7, Absolute Neuts (auto) 3.1, Absolute Lymphs (auto) 1.98, Nucleated RBC % 0, Sodium 139, Potassium 3.6, Chloride 102, Carbon Dioxide 29.0, Anion Gap 8, BUN 12, Creatinine 1.04, Estim Creat Clear Calc 123.67, Est GFR (MDRD) Af Amer 98, Est GFR (MDRD) Non-Af 81, BUN/Creatinine Ratio 11.5, Glucose 148 H, Calcium 9.5, C-React Prot Ext Range 8.12 H 05/11/23 06:32: POC Glucose 167 H 05/11/23 11:40: POC Glucose 221 H Physical Exam Const alert, oriented x3 and no apparent distress General Appearance: cooperative and well developed HEENT normocephalic, moist oral mucous membranes and oropharynx normal Eyes PERRL and EOMs intact bilaterally Neck supple Lymph Lymphatic: no lymphadenopathy noted and no lymphedema noted Resp normal respiratory effort, normal air movement and clear to auscultation bilaterally Cardio regular rate, regular rhythm, S1 normal heart sound, S2 normal heart sound and no murmurs GI normal to inspection, nondistended, normoactive bowel sounds, soft to palpation, non-tender and non-distended Extremity Extremity Narrative: left foot wrapped in bandage Skin Skin Narrative: as under extremities. left foot wrapped in bandage Neuro CN's II-XII intact bilaterally and no focal motor deficits Motor Exam: strength 5/5 throughout Psych thought process normal, cooperative and affect normal Appearance: appropriate Assessment & Plan Assessment/Plan (1) Osteomyelitis of foot, left, acute: PLAN: Plan #Left foot diabetic wound, concerning for osteomyelitis * left foot wrapped in bandage * podiatry on board * Wound cultures grew alphahemolytic strep, Enterococcus faecalis and Pseudomonas. On IV vancomycin and IV Levaquin. * Vascular surgery also on board. ID also consulted. * P.o. Tylenol. PT OT on board. For precautions. * #Type 2 diabetes mellitus with hyperglycemia. * On Lantus 10 units nightly. Insulin sliding scale. Accu-Cheks ACHS. Metformin on hold. * A1c showed * #Hypertension: On amlodipine, lisinopril and hydrochlorothiazide as well as metoprolol. 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 #Obesity: S/p gastric bypass surgery. BMI is 30.8. DVT prophylaxis: Lovenox Charges/Coding Visit Charges Inpatient E&M: 96372 Subs Hosp L2
[2023-05-11 14:36] LABS: Erythrocyte Sedimentation Rate 17 mm/hr (0-20)
--- NOTE | 2023-05-11 14:36 | CASEMGMT ---
List of local in-network agencies provided to the pt that the discharge anesthesia assistant created. Pt chose 1.) [facility] 2[facility] 3.) [facility]. [facility] via the DC anesthesia assistant. Pt also given a list of infusion companies. Pt chose [facility] as their first choice and [facility] as their second choice.
--- NOTE | 2023-05-11 14:55 | CASEMGMT ---
Discharge Planning Referral sent to [facility] and [facility] Melvi Gomez, Discharge Planning Asst.
--- NOTE | 2023-05-11 14:57 | PCM.CONS.GEN ---
Assessment & Plan Assessment/Plan (1) Osteomyelitis of foot, left, acute: PLAN: OR 05/07/[address] Lucero for Achilles lengthening and base of 5th metatarsal excision. Surg cx with enterococcus, [place] x2, MSSE, pseudomonas, anaerobes. On vanc/levaquin. Hives with augmentin, but tolerated amox in the past. Will change abx to zosyn and monitor for reaction. Plan on 6 weeks iv abx. If cannot tolerate zosyn, will do meropenem. Will follow, thank you (2) Charcot's joint, left ankle and foot: (3) Type 2 diabetes mellitus with diabetic polyneuropathy: QUALIFIERS: Diabetes mellitus penitentiary insulin use: without penitentiary use Qualified Code(s): E11.42 - Type 2 diabetes mellitus with diabetic polyneuropathy HPI Consult Data Date of Consult: 05/11/23 HPI Narrative Reason for Consultation: osteo HPI Narrative: ALEXIS LACKEY, is a 47 M with DM neuropathy, Charcot foot, developed worsening redness/drainage/odor about a week ago. Some associated chills. Started on flagyl at wound center, taken to OR as previously scheduled 05/07/[address] Lucero for Achilles lengthening and excision 5th metatarsal base of L foot. Surg cx and wound cx (+), sent to ED, admitted on vanc/levaquin, feeling ok. Reports hives with augmentin about 10 years. No issue with amoxicillin multiple times as a child. Full ROS performed and neg except as noted above. [facility] Medical History Arthritis Bone fracture Diabetes Diabetes type 2, controlled Diabetic neuropathy associated with diabetes mellitus due to underlying condition Elevated liver enzymes Fatty liver Former smoker frozen shoulder,r arm High cholesterol HTN (hypertension) Neuropathy Non-pressure chronic ulcer of other part of left foot with fat layer exposed Seasonal allergies Shortness of breath on exertion Wears glasses Home Medications blood sugar diagnostic (OneTouch Verio test strips) #10 ea 02/11/19 [History Last Taken Unknown] blood-glucose meter (OneTouch Verio Meter) #1 ea 02/11/19 [History Last Taken Unknown] cholecalciferol (vitamin D3) 1,250 mcg (50,000 unit) capsule 50,000 unit PO QWEEK vitamin #12 caps 03/08/19 [Rx Last Taken 05/06/23] metoprolol succinate 50 mg tablet,extended release 24 hr 100 mg PO DAILY htn 03/08/19 [History Last Taken 05/07/23] amlodipine 5 mg tablet 10 mg PO DAILY htn 02/07/22 [History Last Taken 05/07/23] lisinopril 20 mg-hydrochlorothiazide 12.5 mg tablet 1 tab PO DAILY htn 02/07/22 [History Last Taken 05/06/23] tamsulosin 0.4 mg capsule 0.4 mg PO Q24H md ordered 02/07/22 [History Last Taken 05/08/23] biotin 100 mcg PO DAILY daily vitamin 12/10/22 [History Last Taken 05/06/23] calcium citrate 500 mg PO DAILY daily vitamin 12/10/22 [History Last Taken 05/06/23] nenftgtr-tpmn-lqb-folic acid 18 mg-0.4 mg tablet (One Daily Complete) 1 tab PO DAILY vitamin 12/10/22 [History Last Taken 05/06/23] vit B12 50 mcg-iodine 75 mcg-mag 100 do-xces-biwqfhnm-herb 193 capsule 1 cap PO DAILY vitamin 12/10/22 [History Last Taken 05/06/23] zinc 50 mg tablet 50 mg PO DAILY vitamin 12/10/22 [History Last Taken 05/06/23] metformin 1,000 mg tablet 1,000 mg PO BID diabetes 30 days #60 tabs 12/12/22 [Rx Last Taken 05/06/23 09:00] ascorbic acid (vitamin C) 500 mg tablet,extended release (C Complex) 500 mg PO DAILY daily vitamin 05/01/23 [History Last Taken 05/06/23] tirzepatide 2.5 mg/0.5 mL subcutaneous pen injector (Mounjaro) 2.5 mg subcut QWEEK Diabetes 05/01/23 [History Last Taken 05/07/23] oxycodone 5 mg capsule 5 mg PO Q6H PRN pain 7 days #28 caps 05/07/23 [Rx Last Taken Unknown] Allergy/AdvReac Type Severity Reaction Status Date / Time amoxicillin [From Augmentin] Allergy Severe Rash Verified 05/09/23 13:11 clavulanic acid Allergy Severe Rash Verified 05/09/23 13:11 [From Augmentin] Penicillins Allergy Unknown Hives Verified 05/09/23 13:11 Family History Mother Asthma Hypertension Father Hypertension Grandmother Cancer Unknown Arthritis Diabetes Other Diverticulitis Family history of high cholesterol Glaucoma Heart disease Kidney disease Renal failure Surgical History H/O bariatric surgery History of liver biopsy Social History household members: family housing: house Smoking Status: Former smoker alcohol intake: never substance use type: does not use Physical Exam Const alert, oriented x3 and no apparent distress General Appearance: cooperative HEENT normocephalic and head/scalp atraumatic Eyes PERRL and EOMs intact bilaterally Neck supple and No nodes Resp normal air movement and clear to auscultation bilaterally Cardio regular rate and regular rhythm GI soft to palpation, non-tender and non-distended Extremity General Extremity: Negative for edema Skin Skin Narrative: L foot wrapped Neuro CN's II-XII intact bilaterally Lab / Micro Data Attestation: I reviewed the patient's lab results. 05/11/23 05:29 05/11/23 05:29 Labs: Laboratory Results - last 24 hr 05/10/23 15:34: POC Glucose 206 H 05/10/23 22:52: POC Glucose 132 H 05/11/23 05:29: WBC 5.8, RBC 4.87, Hgb 14.5, Hct 41.7, MCV 85.6, MCH 29.8, MCHC 34.8, RDW Std Deviation 36.4, RDW Coeff of Julianna 11.7, Plt Count 239, MPV 10.1, Immature Gran % (Auto) 0.200, Neut % (Auto) 53.2, Lymph % (Auto) 34.3, Rice % (Auto) 8.3, Eos % (Auto) 3.3, Baso % (Auto) 0.7, Absolute Neuts (auto) 3.1, Absolute Lymphs (auto) 1.98, Nucleated RBC % 0, ESR 17, Sodium 139, Potassium 3.6, Chloride 102, Carbon Dioxide 29.0, Anion Gap 8, BUN 12, Creatinine 1.04, Estim Creat Clear Calc 123.67, Est GFR (MDRD) Af Amer 98, Est GFR (MDRD) Non-Af 81, BUN/Creatinine Ratio 11.5, Glucose 148 H, Calcium 9.5, C-React Prot Ext Range 8.12 H 05/11/23 06:32: POC Glucose 167 H 05/11/23 11:40: POC Glucose 221 H
--- NOTE | 2023-05-11 15:28 | WOUNDNOTE ---
wound photo: left lateral foot
--- NOTE | 2023-05-11 15:29 | WOUNDNOTE ---
wound photo: left plantar foot
--- NOTE | 2023-05-11 15:29 | WOUNDNOTE ---
wound photo: left Achilles area
[2023-05-11] MEDS: Piperacil/Tazobactam 3.375 GM in 0.9% Normal Saline (50mL MB+) 50 ML IV ×2 (16:04→21:19)
[2023-05-11] MEDS: 0.9% Normal Saline (250mL Bag) 250 ML 15 ML IV (16:04)
[2023-05-11 16:30] LABS: Bedside Glucose 140 mg/dL (74-106)
[2023-05-11] MEDS: Insulin Glargine-YFGN 100 UNIT/ML Pen 10 UNIT SC (21:18)
[2023-05-11] MEDS: Acetaminophen 325 MG Tablet 650 MG PO (21:19)
[2023-05-11 23:23] LABS: Bedside Glucose 160 mg/dL (74-106)
[2023-05-12 05:14] VITALS: BP 135/80; PULSE 57; RESP 15; TEMP 36.6; O2SAT 97
[2023-05-12] MEDS: Piperacil/Tazobactam 3.375 GM in 0.9% Normal Saline (50mL MB+) 50 ML IV ×3 (05:18→20:51)
[2023-05-12 06:47] LABS: Bedside Glucose 144 mg/dL (74-106)
[2023-05-12 07:46] LABS: Absolute Neutrophil Count 2.9 X10^3/uL (2.0-7.7); Basophil# 0.04 X10^3/uL; Basophil% 0.8 % (0-1); Eosinophil# 0.11 X10^3/uL; Eosinophils% 2.3 % (0-5); Hematocrit 40.4 % (40-54); Hemoglobin 14.2 g/dL (13.0-16.5); Lymphocyte % 28.9 % (19-41); Mean Corp Hgb Conc 35.1 g/dL (32-36); Mean Corpuscular Hgb 29.7 pg (27.0-32.0); Mean Corpuscular Volume 84.5 fL (80-94); Mean Platelet Vol. 10.1 fl (6.2-12.0); Monocyte# 0.37 X10^3/uL; Monocyte% 7.6 % (0-10); NRBC Flagged by Analyzer 0 % (0-5); Neutrophil # 2.92 X10^3/uL (2.7-7.7); Neutrophil % 60.2 % (47-70); Platelet Count 222 K/mm3 (150-450); RBC Distribution Width CV 11.7 % (11.6-14.6); RBC Distribution Width SD 35.7 fl (35.1-43.9); Red Blood Count 4.78 M/mm3 (4.6-6.2); White Blood Count 4.9 K/mm3 (4.4-11.0)
[2023-05-12 08:07] LABS: Anion Gap 3 (5-15); BUN 14 mg/dL (7-18); BUN/Creat Ratio 12.3 RATIO (10-20); Calcium,Total 9.8 mg/dL (8.5-10.1); Chloride 105 mmol/L (98-107); Creatinine, Serum 1.14 mg/dL (0.70-1.30); EST Glomerular Filtration Rate 73 mL/min (>60); Est Glom Filt Rate - Afr Amer 88 mL/min (>60); Estimated Creatinine Clearance 112.83 ml/min; Glucose 159 mg/dL (74-106); Potassium 4.4 mmol/L (3.5-5.1); Sodium Level 137 mmol/L (136-145)
--- NOTE | 2023-05-12 09:12 | CASEMGMT ---
[facility] has accepted the pt. [facility] infusion company referral still pending. This RN CM calls and they state they are running insurance and will call me back.
[2023-05-12 10:32] VITALS: BP 162/81; PULSE 70; RESP 18; TEMP 36.9; O2SAT 98
--- NOTE | 2023-05-12 10:33 | PN.ID_ITS ---
Physical Exam Narrative No rash or itching. No fever. Mild loose stool. Const alert and no apparent distress Resp normal air movement and clear to auscultation bilaterally Cardio regular rate and regular rhythm GI soft to palpation, non-tender and non-distended Skin Skin Narrative: L foot wrapped ID ID: Route of nutrition/ use of supplements: [] Nutritional Intake: [] IV Site: [] Oneal Catheter: [] Assessment & Plan Assessment/Plan (1) Osteomyelitis of foot, left, acute: PLAN: OR 05/07/[address] Lucero for Achilles lengthening and base of 5th metatarsal excision. Surg cx with enterococcus, [place] x2, MSSE, pseudomonas, winkia, anaerobes. Hives with augmentin, but tolerated amox in the past. Plan on 6 weeks iv abx zosyn, stop date 06/18/23 with weekly labs, ID followup in 2 weeks. If cannot tolerate zosyn, will do meropenem. 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
[2023-05-12 10:34] VITALS: PULSE 70
[2023-05-12] MEDS: Lisinopril 40 MG Tablet PO (10:34)
[2023-05-12] MEDS: Tamsulosin HCl 0.4 MG Capsule 0.400000000000000022 MG PO (10:34)
[2023-05-12] MEDS: hydroCHLOROthiazide 25 MG Tablet PO (10:34)
[2023-05-12] MEDS: Calcium Carbonate 500 MG Tablet 1000 MG PO (10:34)
[2023-05-12] MEDS: amLODIPine 10 MG Tablet PO (10:34)
[2023-05-12] MEDS: Metoprolol(XL)Succ 100 MG Tablet PO (10:34)
[2023-05-12] MEDS: Ascorbic Acid 500 MG Tablet PO (10:34)
[2023-05-12] MEDS: Zinc Sulfate 50 mg zinc (220 mg) ORAL capsule PO (10:35)
[2023-05-12] MEDS: Enoxaparin 40 MG/0.4 ML Syringe SC (10:35)
--- NOTE | 2023-05-12 10:45 | CASEMGMT ---
Discussed pt with ID. Ok to miss 10pm dose this evening if HH to start in the morning. RX for IV uploaded and sent via careport to [facility] and [facility] with request for med to be delivered by morning and HH to see pt in the morning, awaiting responses.
[2023-05-12] MEDS: Insulin Lispro 100 UNIT/ML INSULN.PEN SC ×2 (12:09→16:51)
[2023-05-12 12:36] LABS: Bedside Glucose 219 mg/dL (74-106)
[2023-05-12] MEDS: oxyCODONE 5 MG Tablet PO ×2 (14:22→20:49)
[2023-05-12] MEDS: 0.9% Saline Lock 10 ML Syringe IV (14:22)
--- NOTE | 2023-05-12 15:10 | PCM.DC ---
Discharge Instructions Diet Discharge Diet: Low fat / Low cholesterol Activity Discharge Activity: Return to Normal Activity Weight Bearing Status: Weight bearing as tolerated Dressing / Incision Call your doctor if your incision/area has: Continuous Slow Oozing, Sudden Increased Bleeding, Increased Pain/ Swelling, Increased Redness, Foul Smelling Discharge and Swelling at the incision site Call your doctor if you observe: Fever of 101 or Higher, Shortness of breath, Dizziness, Swelling in the ankles, Chest pain and Uncontrolled pain Follow Up Care Test Results: Test results from this visit will be discussed in further detail at your follow-up appointment, if applicable. Discharge Plan Admission Admit Date/Time: 05/09/23 16:09 Primary Reason for Your Visit: left foot osteomyelitis Attending Provider: Junie Cummings Primary Care Provider: SCOTT FREED Consulting Providers: Isaac Lucero; Bryan Dunlap; Kendy Mendez; Sis Hassan; Terry Escobedo Discharge Orders/Prescriptions Prescriptions: New piperacillin-tazobactam 3.375 gram recon soln 3.375 g IV Q8H 37 Days Rx Instructions: stop date 06/18/23 dx: foot osteo weekly bmp, cbc, and esr. Fax to [phone] hydrochlorothiazide 25 mg Tablet 25 mg PO DAILY Qty: 30 2RF lisinopril 40 mg Tablet 40 mg PO DAILY Qty: 30 2RF Continued metoprolol succinate 50 mg tablet extended release 24 hr 100 mg PO DAILY cholecalciferol (vitamin D3) 50,000 unit capsule 50,000 unit PO QWEEK Qty: 12 3RF Patient Comments: every thursday (DME) OneTouch Verio test strips Strip See Rx Instructions .ROUTE .MEDSUPPLY Qty: 10 Rx Instructions: use to check BG 4 x qd (DME) blood-glucose meter [OneTouch Verio Meter] [facility] See Rx Instructions .ROUTE .MEDSUPPLY Qty: 1 Rx Instructions: As directed amlodipine 5 mg tablet 10 mg PO DAILY Patient Comments: TAKE 1 TABLET BY MOUTHcONCE DAILY tamsulosin 0.4 mg capsule 0.4 mg PO Q24H Patient Comments: TAKE 1 CAPSULE BY MOUTHUONCE DAILY [id number] 50 mcg-75 mcg -100 mg capsule 1 cap PO DAILY biotin 100 mcg PO DAILY calcium citrate 250 mg calcium tablet 500 mg PO DAILY One Daily Complete 18-0.4 mg tablet 1 tab PO DAILY zinc 50 mg tablet 50 mg PO DAILY metformin 1,000 mg tablet 1,000 mg PO BID 30 Days Qty: 60 0RF ascorbic acid (vitamin C) [C Complex] 500 mg tablet extended release 500 mg PO DAILY Mounjaro 2.5 mg/0.5 mL pen injector 2.5 mg subcut QWEEK oxycodone 5 mg capsule 5 mg PO Q6H PRN (Reason: pain) 7 Days Qty: 28 0RF Discontinued lisinopril-hydrochlorothiazide 20-12.5 mg tablet 1 tab PO DAILY Patient Comments: TAKE TWO TABLETS BY MOUTHiONCE DAILY Referrals / Follow Up: SCOTT FREED DO [Primary Care Provider] - Within 2 Weeks Isaac Lucero DPM [Med Staff - Active Staff] - Within 2 Weeks Terry Escobedo MD [Med Staff - Active Staff] - Within 2 Weeks Disposition Disposition (needs filled in before D/C Order can be placed): Home Health Service
--- NOTE | 2023-05-12 15:11 | PCM.DC.SUM ---
Providers Date of Admission: 05/09/23 Date of Discharge: 05/12/23 Primary Care Physician: SCOTT RAI DO Consultations 05/09/23 17:21 Consult: Infectious Disease Routine Consulting Provider: Terry Escobedo Reason for Consult: diabetic foot infection EMERGENT Consult: No Notified: Yes Date Notified: 05/11/23 Time Notified: 08:02 Method of Notification: Text Consult: Podiatry Routine Consulting Provider: Isaac Lucero Reason for Consult: foot infection EMERGENT Consult: No Notified: Yes Date Notified: 05/09/23 Time Notified: 16:13 Method of Notification: ED Physician Initiated Consult: Vascular Surgery Routine Consulting Provider: Bryan Dunlap Reason for Consult: nonhealing diabetic foot wound EMERGENT Consult: No Notified: Yes Date Notified: 05/09/23 Time Notified: 17:13 Method of Notification: spoke with on phone Reason For Visit: INFECTED DIABETIC FOOT WOUND Diagnosis Discharge Diagnosis (1) Osteomyelitis of foot, left, acute: Status: Acute Code(s): M86.172 - Other acute osteomyelitis, left ankle and foot (2) Charcot's joint, left ankle and foot: Status: Acute Code(s): M14.672 - Charcot's joint, left ankle and foot (3) Type 2 diabetes mellitus with diabetic polyneuropathy: Status: Acute Code(s): E11.42 - Type 2 diabetes mellitus with diabetic polyneuropathy Qualifiers: Diabetes mellitus group home insulin use: without intermediate manager use Qualified Code(s): E11.42 - Type 2 diabetes mellitus with diabetic polyneuropathy Plan #Left foot diabetic wound, concerning for osteomyelitis left foot wrapped in bandage podiatry on board Wound cultures grew alphahemolytic strep, Enterococcus faecalis and Pseudomonas. On IV vancomycin and IV Levaquin. Vascular surgery also on board. ID also consulted. P.o. Tylenol. PT OT on board. For precautions. #Type 2 diabetes mellitus with hyperglycemia. On Lantus 10 units nightly. Insulin sliding scale. Accu-Cheks ACHS. Metformin on hold. A1c showed #Hypertension: On amlodipine, lisinopril and hydrochlorothiazide as well as metoprolol. 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 #Obesity: S/p gastric bypass surgery. BMI is 30.8. DVT prophylaxis: Lovenox Medications at Discharge Home Medications blood sugar diagnostic (OneTouch Verio test strips) #10 ea 02/11/19 blood-glucose meter (OneTouch Verio Meter) #1 ea 02/11/19 cholecalciferol (vitamin D3) 1,250 mcg (50,000 unit) capsule 50,000 unit PO QWEEK vitamin #12 caps 03/08/19 metoprolol succinate 50 mg tablet,extended release 24 hr 100 mg PO DAILY htn 03/08/19 amlodipine 5 mg tablet 10 mg PO DAILY htn 02/07/22 tamsulosin 0.4 mg capsule 0.4 mg PO Q24H md ordered 02/07/22 biotin 100 mcg PO DAILY daily vitamin 12/10/22 calcium citrate 500 mg PO DAILY daily vitamin 12/10/22 xlcuabja-xjby-sds-folic acid 18 mg-0.4 mg tablet (One Daily Complete) 1 tab PO DAILY vitamin 12/10/22 vit B12 50 mcg-iodine 75 mcg-mag 100 kq-call-sebmisqb-herb 193 capsule 1 cap PO DAILY vitamin 12/10/22 zinc 50 mg tablet 50 mg PO DAILY vitamin 12/10/22 metformin 1,000 mg tablet 1,000 mg PO BID diabetes 30 days #60 tabs 12/12/22 ascorbic acid (vitamin C) 500 mg tablet,extended release (C Complex) 500 mg PO DAILY daily vitamin 05/01/23 tirzepatide 2.5 mg/0.5 mL subcutaneous pen injector (Mounjaro) 2.5 mg subcut QWEEK Diabetes 05/01/23 oxycodone 5 mg capsule 5 mg PO Q6H PRN pain 7 days #28 caps 05/07/23 hydrochlorothiazide 25 mg tablet 25 mg PO DAILY #30 tabs 05/12/23 lisinopril 40 mg tablet 40 mg PO DAILY #30 tabs 05/12/23 piperacillin-tazobactam 3.375 gram intravenous solution 3.375 g IV Q8H 37 days 05/12/23 Hospital Course Procedures None Summary of Care Provided Minutes Spent on Discharge: 55 Hospital Course: Patient is a 47-year-old male with a past medical history as outlined was admitted through the ED on 05/09/2023 with a complaint of foot wound. Patient had a foot fracture and not had surgery for it but had had abnormal healing of this foot fracture of the left foot. He had been following up at the wound care center. He was called by the wound center nurse about his intraoperative culture results and was told to come to the office or to the ED for evaluation. Patient decided to come into the ED. Cultures done for Enterococcus and gram-positive rods. He had been placed on antibiotics on outpatient basis but this had not been improving so he had had an Achilles tendon lengthening with bone biopsy and culture with wound debridement. There was this bone biopsy and culture results which grew Enterococcus faecalis, alphahemolytic strep and Pseudomonas the patient was called to come into the ED. He was started on IV vancomycin and cefepime in light of his penicillin allergy. ID was consulted. Podiatry was also consulted. Antibiotics were switched to IV vancomycin and Levaquin. ID reviewed patient and recommended that due to concerns about osteomyelitis, patient will be discharged on IV Zosyn for 6 weeks, with a stop date of 06/18/2023. He did have a history of hives with Augmentin but had tolerated amoxicillin in the past. Per ID, patient will therefore go on Zosyn but if he did not tolerated then would be switched to meropenem. Patient had a PICC line inserted and was discharged home with home health on 05/12/2023. He is follow-up with his primary care doctor and ID as well as podiatry within 1 to 2 weeks. Patient seen and examined prior to discharge. He felt well and had no active complaints. He had an uneventful night. Review of systems otherwise negative. Labs and vitals reviewed. Home medication reviewed and reconciled. Physical Exam Const alert, oriented x3, no apparent distress, healthy appearing and well nourished General Appearance: cooperative, comfortable, well kempt and well developed Orientation / Consciousness: awake HEENT normocephalic, head/scalp atraumatic, hearing grossly normal bilaterally, moist oral mucous membranes and oropharynx normal Mouth: oral and palatal mucosa normal Eyes PERRL and EOMs intact bilaterally Neck no lymphadenopathy and supple Lymph Lymphatic: no lymphadenopathy noted and no lymphedema noted Resp normal respiratory effort, normal air movement, no retractions, no use of accessory muscles and clear to auscultation bilaterally Auscultation: Negative for rales, rhonchi or wheezes Cardio regular rate, regular rhythm, S1 normal heart sound, S2 normal heart sound, no murmurs, no rub, no gallops and no clicks GI normal to inspection, nondistended, normoactive bowel sounds, soft to palpation, non-tender and non-distended Extremity Extremity Narrative: left foot wrapped in bandage Skin Skin Narrative: as under extremities. left foot wrapped in bandage Neuro oriented x3, CN's II-XII intact bilaterally, moves all extremities and no focal motor deficits Speech: speech normal Motor Exam: strength 5/5 throughout Psych thought process normal, cooperative and affect normal Appearance: appropriate Weight / BMI Weight Weight: 260 lb 2.327 oz Body Mass Index (BMI) 30.8 ABG / Lab / Microbiology Data 05/12/23 07:33 05/12/23 07:33 Laboratory: Laboratory Results - last 24 hr 05/11/23 16:09: POC Glucose 140 H 05/11/23 21:17: POC Glucose 160 H 05/12/23 05:17: POC Glucose 144 H 05/12/23 07:33: WBC 4.9, RBC 4.78, Hgb 14.2, Hct 40.4, MCV 84.5, MCH 29.7, MCHC 35.1, RDW Std Deviation 35.7, RDW Coeff of Julianna 11.7, Plt Count 222, MPV 10.1, Immature Gran % (Auto) 0.200, Neut % (Auto) 60.2, Lymph % (Auto) 28.9, [place] % (Auto) 7.6, Eos % (Auto) 2.3, Baso % (Auto) 0.8, Absolute Neuts (auto) 2.9, Absolute Lymphs (auto) 1.40, Nucleated RBC % 0, Sodium 137, Potassium 4.4, Chloride 105, Carbon Dioxide 29.0, Anion Gap 3 L, BUN 14, Creatinine 1.14, Estim Creat Clear Calc 112.83, Est GFR (MDRD) Af Amer 88, Est GFR (MDRD) Non-Af 73, BUN/Creatinine Ratio 12.3, Glucose 159 H, Calcium 9.8 05/12/23 12:08: POC Glucose 219 H Radiography Diagnostic Testing: Radiology Impression Extremity Arterial Study 05/11/23 07:32 Interpretation Summary Right RACHEL 1.41, artificially elevated. TBI and Doppler/PVR waveforms of the right leg normal at rest. Left RACHEL 1.37, normal. TBI and Doppler/PVR waveforms of the left leg normal at rest. Ordering Physician: Bryan Dunlap Referring Physician: Scott Rai Performed By: Keren Lloyd RVT D/C Instructions Discharge Diet: Low fat / Low cholesterol Discharge Activity: Return to Normal Activity Weight Bearing Status: Weight bearing as tolerated Call your doctor if your incision/area has: Continuous Slow Oozing, Sudden Increased Bleeding, Increased Pain/ Swelling, Increased Redness, Foul Smelling Discharge and Swelling at the incision site Call your doctor if you observe: Fever of 101 or Higher, Shortness of breath, Dizziness, Swelling in the ankles, Chest pain and Uncontrolled pain Meaningful Use Info Meaningful Use Diagnoses (Choose all that apply): None applicable Discharge Plan Admission Admit Date/Time: 05/09/23 16:09 Primary Reason for Your Visit: left foot osteomyelitis Attending Provider: Junie Cummings Primary Care Provider: SCOTT RAI Consulting Providers: Isaac Lucero; Bryan Dunlap; Kendy Mendez; Sis Hassan; Terry Escobedo Discharge Orders/Prescriptions Prescriptions: New piperacillin-tazobactam 3.375 gram recon soln 3.375 g IV Q8H 37 Days Rx Instructions: stop date 06/18/23 dx: foot osteo weekly bmp, cbc, and esr. Fax to [phone] hydrochlorothiazide 25 mg Tablet 25 mg PO DAILY Qty: 30 2RF lisinopril 40 mg Tablet 40 mg PO DAILY Qty: 30 2RF Continued metoprolol succinate 50 mg tablet extended release 24 hr 100 mg PO DAILY cholecalciferol (vitamin D3) 50,000 unit capsule 50,000 unit PO QWEEK Qty: 12 3RF Patient Comments: every thursday (DME) OneTouch Verio test strips Strip See Rx Instructions .ROUTE .MEDSUPPLY Qty: 10 Rx Instructions: use to check BG 4 x qd (DME) blood-glucose meter [OneTouch Verio Meter] Misc See Rx Instructions .ROUTE .MEDSUPPLY Qty: 1 Rx Instructions: As directed amlodipine 5 mg tablet 10 mg PO DAILY Patient Comments: TAKE 1 TABLET BY MOUTHcONCE DAILY tamsulosin 0.4 mg capsule 0.4 mg PO Q24H Patient Comments: TAKE 1 CAPSULE BY MOUTHUONCE DAILY [id number] 50 mcg-75 mcg -100 mg capsule 1 cap PO DAILY biotin 100 mcg PO DAILY calcium citrate 250 mg calcium tablet 500 mg PO DAILY One Daily Complete 18-0.4 mg tablet 1 tab PO DAILY zinc 50 mg tablet 50 mg PO DAILY metformin 1,000 mg tablet 1,000 mg PO BID 30 Days Qty: 60 0RF ascorbic acid (vitamin C) [C Complex] 500 mg tablet extended release 500 mg PO DAILY Mounjaro 2.5 mg/0.5 mL pen injector 2.5 mg subcut QWEEK oxycodone 5 mg capsule 5 mg PO Q6H PRN (Reason: pain) 7 Days Qty: 28 0RF Discontinued lisinopril-hydrochlorothiazide 20-12.5 mg tablet 1 tab PO DAILY Patient Comments: TAKE TWO TABLETS BY MOUTHiONCE DAILY Referrals / Follow Up: SCOTT RAI DO [Primary Care Provider] - 05/19/23 9:20 am Isaac Lucero DPM [Med Staff - Active Staff] - 05/26/23 2:15 pm Terry Escobedo MD [Med Staff - Active Staff] - 05/27/23 2:00 pm (This is at the [place] office at the [facility].) Disposition Disposition (needs filled in before D/C Order can be placed): Home Health Service Charges/Coding Visit Charges Inpatient E&M: 35410 Disch Hosp >30min
--- NOTE | 2023-05-12 15:17 | CASEMGMT ---
This RN CM to pt room at this time to update pt. Pt updated that [facility] will deliver the medications this evening. Pt updated that [facility] will be to the home tomorrow to provide education to the pt and pt for the infusions that will be due q8 Hours. Pt updated on the cost of the medication that [facility] provided and pt states he was already aware of this. Pt is agreeable to this plan and denies further questions. Pt states that he plans on calling the wound center to schedule a time to be seen next week for his wound care. Pt denies us setting this up at this time. Wound care order and DC instructions uploaded to the [facility] via [facility]. DC instructions uploaded to [facility] via [facility].
[2023-05-12 16:47] VITALS: BP 146/80; PULSE 58; RESP 18; TEMP 36.8; O2SAT 99
[2023-05-12 18:04] LABS: Bedside Glucose 199 mg/dL (74-106)
--- NOTE | 2023-05-12 19:09 | PCM.HOSP.N ---
Hospitalist Note Health care company unable to set up zosyn doses until 05/13/22 afternoon. Patient just completed dosing now. Given this issue and his notable resistance patterns per discussion with family will hold discharge until assure appropriate home health care with abx in place.
[2023-05-12 20:24] VITALS: BP 167/85; PULSE 56; RESP 18; TEMP 36.4; O2SAT 97
[2023-05-12] MEDS: Acetaminophen 325 MG Tablet 650 MG PO (20:50)
[2023-05-12] MEDS: Insulin Glargine-YFGN 100 UNIT/ML Pen 10 UNIT SC (20:51)
[2023-05-12 21:25] LABS: Bedside Glucose 176 mg/dL (74-106)
[2023-05-13 04:50] VITALS: BP 149/84; PULSE 55; RESP 18; TEMP 36.4; O2SAT 96
[2023-05-13] MEDS: Acetaminophen 325 MG Tablet 650 MG PO (05:10)
[2023-05-13] MEDS: Piperacil/Tazobactam 3.375 GM in 0.9% Normal Saline (50mL MB+) 50 ML IV (05:10)
[2023-05-13] MEDS: Insulin Lispro 100 UNIT/ML INSULN.PEN SC (07:01)
[2023-05-13 07:20] LABS: Bedside Glucose 164 mg/dL (74-106)
--- NOTE | 2023-05-13 07:50 | PN_ITS ---
Subjective Subjective Delayed progress note for 05/12/2023 Patieint was seen and examined. He had no active complaints. Plan was for patimonik tinsley to be discharged home on 05/12/2023. However, in the evening of the discharge day, family expressed concern that antibiotics wouldnt be set up at home till 05/13/2023. They were therefore concerned he would miss a few doses of the antibiotic. Discharge was therefore cancelled. Objective Data Objective Data Vital Signs: Vital Signs Temp Pulse Resp BP Pulse Ox O2 Del Method 97.5 F L 55 L 18 149/84 H 96 Room Air 05/13/23 04:50 05/13/23 04:50 05/13/23 04:50 05/13/23 04:50 05/13/23 04:50 05/13/23 04:50 Oxygen Delivery Method Room Air Weight: 260 lb 2.327 oz Body Mass Index (BMI) 30.8 Intake & Output: Intake and Output for Last 24 Hours 05/11/23 05/12/23 05/13/23 23:59 23:59 23:59 Intake Total 2044.25 / 2344.25 1999 / 1999 50 / 50 Output Total 1650 / 1900 600 / 1400 1500 / 1500 Balance 394.25 / 444.25 1400 / 600 -1450 / -1450 Lab / Micro Data 05/12/23 07:33 05/12/23 07:33 Labs: Laboratory Results - last 24 hr 05/12/23 07:33: Sodium 137, Potassium 4.4, Chloride 105, Carbon Dioxide 29.0, Anion Gap 3 L, BUN 14, Creatinine 1.14, Estim Creat Clear Calc 112.83, Est GFR (MDRD) Af Amer 88, Est GFR (MDRD) Non-Af 73, BUN/Creatinine Ratio 12.3, Glucose 159 H, Calcium 9.8 05/12/23 12:08: POC Glucose 219 H 05/12/23 16:51: POC Glucose 199 H 05/12/23 20:41: POC Glucose 176 H 05/13/23 06:59: POC Glucose 164 H Physical Exam Const alert, oriented x3, no apparent distress, healthy appearing and well nourished General Appearance: cooperative, comfortable, well kempt and well developed Orientation / Consciousness: awake HEENT normocephalic, head/scalp atraumatic, hearing grossly normal bilaterally, moist oral mucous membranes and oropharynx normal Eyes PERRL and EOMs intact bilaterally Neck no lymphadenopathy and supple Lymph Lymphatic: no lymphadenopathy noted and no lymphedema noted Resp normal respiratory effort, normal air movement, no retractions, no use of accessory muscles and clear to auscultation bilaterally Auscultation: Negative for rales, rhonchi or wheezes Cardio regular rate, regular rhythm, S1 normal heart sound, S2 normal heart sound, no murmurs, no rub and no gallops GI normal to inspection, nondistended, normoactive bowel sounds, soft to palpation, non-tender and non-distended Extremity Extremity Narrative: left foot wrapped in bandage Skin Skin Narrative: as under extremities. left foot wrapped in bandage Neuro oriented x3, CN's II-XII intact bilaterally, moves all extremities and no focal motor deficits Speech: speech normal Motor Exam: strength 5/5 throughout Psych thought process normal, cooperative and affect normal Appearance: appropriate Assessment & Plan Assessment/Plan (1) Osteomyelitis of foot, left, acute: (2) Charcot's joint, left ankle and foot: (3) Type 2 diabetes mellitus with diabetic polyneuropathy: QUALIFIERS: Diabetes mellitus correction insulin use: without rn long term care use Qualified Code(s): E11.42 - Type 2 diabetes mellitus with diabetic polyneuropathy PLAN: Plan #Left foot diabetic wound, concerning for osteomyelitis * left foot wrapped in bandage * podiatry on board * Wound cultures grew alphahemolytic strep, Enterococcus faecalis and Pseudomonas. On IV vancomycin and IV Levaquin. * Vascular surgery also on board. ID also consulted. * P.o. Tylenol. PT OT on board. For precautions. * #Type 2 diabetes mellitus with hyperglycemia. * On Lantus 10 units nightly. Insulin sliding scale. Accu-Cheks ACHS. Metformin on hold. * A1c showed * #Hypertension: On amlodipine, lisinopril and hydrochlorothiazide as well as metoprolol. 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 #Obesity: S/p gastric bypass surgery. BMI is 30.8. DVT prophylaxis: Lovenox\ #Disposition: discharge canceled. To be discharged home with home health on 05/13/2023.
[2023-05-13 07:52] LABS: Absolute Lymphocyte Count 1.47 X10^3/uL (0.83-4.51); Absolute Neutrophil Count 2.6 X10^3/uL (2.0-7.7); Basophil# 0.04 X10^3/uL; Basophil% 0.9 % (0-1); Eosinophil# 0.13 X10^3/uL; Eosinophils% 2.8 % (0-5); Hematocrit 42.4 % (40-54); Hemoglobin 14.6 g/dL (13.0-16.5); Lymphocyte # 1.47 X10^3/ul (0.83-4.51); Lymphocyte % 31.6 % (19-41); Mean Corp Hgb Conc 34.4 g/dL (32-36); Mean Corpuscular Hgb 29.5 pg (27.0-32.0); Mean Corpuscular Volume 85.7 fL (80-94); Monocyte# 0.41 X10^3/uL; Monocyte% 8.8 % (0-10); NRBC Flagged by Analyzer 0 % (0-5); Neutrophil # 2.59 X10^3/uL (2.7-7.7); Neutrophil % 55.7 % (47-70); Platelet Count 244 K/mm3 (150-450); RBC Distribution Width CV 11.7 % (11.6-14.6); RBC Distribution Width SD 36.2 fl (35.1-43.9); Red Blood Count 4.95 M/mm3 (4.6-6.2); White Blood Count 4.7 K/mm3 (4.4-11.0)
--- NOTE | 2023-05-13 08:15 | WOUNDNOTE ---
Dressing and splint intact to the left foot. dressing is to remain in place until follow up with Dr Lucero. plan is for discharge home today. Pt denies further needs at this time.
--- NOTE | 2023-05-13 08:18 | CASEMGMT ---
Norma HARRIS messaged to see if they can see the pt at 1400 today so the pt will not be missing any doses.
[2023-05-13 08:24] LABS: Anion Gap 2 (5-15); BUN 15 mg/dL (7-18); BUN/Creat Ratio 13.6 RATIO (10-20); Calcium,Total 9.5 mg/dL (8.5-10.1); Chloride 104 mmol/L (98-107); EST Glomerular Filtration Rate 76 mL/min (>60); Est Glom Filt Rate - Afr Amer 92 mL/min (>60); Estimated Creatinine Clearance 116.93 ml/min; Glucose 162 mg/dL (74-106); Potassium 3.6 mmol/L (3.5-5.1); Sodium Level 135 mmol/L (136-145)
[2023-05-13 09:10] VITALS: PULSE 64
[2023-05-13] MEDS: Metoprolol(XL)Succ 100 MG Tablet PO (09:10)
[2023-05-13] MEDS: Zinc Sulfate 50 mg zinc (220 mg) ORAL capsule PO (09:10)
[2023-05-13] MEDS: Calcium Carbonate 500 MG Tablet 1000 MG PO (09:10)
[2023-05-13] MEDS: Ascorbic Acid 500 MG Tablet PO (09:10)
[2023-05-13] MEDS: Lisinopril 40 MG Tablet PO (09:10)
[2023-05-13] MEDS: hydroCHLOROthiazide 25 MG Tablet PO (09:11)
[2023-05-13] MEDS: Tamsulosin HCl 0.4 MG Capsule 0.400000000000000022 MG PO (09:11)
[2023-05-13] MEDS: amLODIPine 10 MG Tablet PO (09:11)
[2023-05-13] MEDS: Enoxaparin 40 MG/0.4 ML Syringe SC (09:11)
[2023-05-13 09:20] VITALS: BP 178/86; PULSE 64; RESP 18; TEMP 36.6; O2SAT 98
--- NOTE | 2023-05-13 09:28 | CASEMGMT ---
Addendum entered by Ann Victoria 05/13/23 10:33: Pt DC from this hospital. This RN SONI notified [facility] via [facility] that the pt is DC from [facility]. Addendum entered by Ann Victoria 05/13/23 09:51: [facility] Nurse calls back and states she will be to the home at 1400 today. Plan is to DC the pt after his morning dose is complete. Original Note: TC to [facility] and they state they do not know when they can see the pt today. TC to the nurse in charge of seeing the pt at home with no answer, voice message left. TC to [email or web address] and they state they will not deliver the med until the pt is physically home. MEGHA SHAFER to room at this time and the pt states that he was on the phone with the [facility] Nurse within the past hour and that she will be to the home at [phone] today. Discussed with pt the plan to complete the AM dose of his ATB and then to DC home after this so he can receive the 1400 dose and not have to worry about missing any additional doses.
--- NOTE | 2023-05-13 10:08 | PCM.DC.SUM ---
Providers Date of Admission: 05/09/23 Date of Discharge: 05/13/23 Primary Care Physician: SCOTT FREED DO Consultations 05/09/23 17:21 Consult: Infectious Disease Routine Consulting Provider: Terry Escobedo Reason for Consult: diabetic foot infection EMERGENT Consult: No Notified: Yes Date Notified: 05/11/23 Time Notified: 08:02 Method of Notification: Text Consult: Podiatry Routine Consulting Provider: Isaac Lucero Reason for Consult: foot infection EMERGENT Consult: No Notified: Yes Date Notified: 05/09/23 Time Notified: 16:13 Method of Notification: ED Physician Initiated Consult: Vascular Surgery Routine Consulting Provider: Bryan Dunlap Reason for Consult: nonhealing diabetic foot wound EMERGENT Consult: No Notified: Yes Date Notified: 05/09/23 Time Notified: 17:13 Method of Notification: spoke with on phone Reason For Visit: INFECTED DIABETIC FOOT WOUND Diagnosis Discharge Diagnosis (1) Osteomyelitis of foot, left, acute: Status: Acute Code(s): M86.172 - Other acute osteomyelitis, left ankle and foot (2) Charcot's joint, left ankle and foot: Status: Acute Code(s): M14.672 - Charcot's joint, left ankle and foot (3) Type 2 diabetes mellitus with diabetic polyneuropathy: Status: Acute Code(s): E11.42 - Type 2 diabetes mellitus with diabetic polyneuropathy Qualifiers: Diabetes mellitus detention insulin use: without ad terminal makeup operator use Qualified Code(s): E11.42 - Type 2 diabetes mellitus with diabetic polyneuropathy Plan #Left foot diabetic wound, concerning for osteomyelitis left foot wrapped in bandage podiatry on board Wound cultures grew alphahemolytic strep, Enterococcus faecalis and Pseudomonas. On IV vancomycin and IV Levaquin. Vascular surgery also on board. ID also consulted. P.o. Tylenol. PT OT on board. For precautions. #Type 2 diabetes mellitus with hyperglycemia. On Lantus 10 units nightly. Insulin sliding scale. Accu-Cheks ACHS. Metformin on hold. A1c showed #Hypertension: On amlodipine, lisinopril and hydrochlorothiazide as well as metoprolol. 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 #Obesity: S/p gastric bypass surgery. BMI is 30.8. DVT prophylaxis: Lovenox\ #Disposition: discharge canceled. To be discharged home with home health on 05/13/2023. Medications at Discharge Home Medications blood sugar diagnostic (OneTouch Verio test strips) #10 ea 02/11/19 blood-glucose meter (OneTouch Verio Meter) #1 ea 02/11/19 cholecalciferol (vitamin D3) 1,250 mcg (50,000 unit) capsule 50,000 unit PO QWEEK vitamin #12 caps 03/08/19 metoprolol succinate 50 mg tablet,extended release 24 hr 100 mg PO DAILY htn 03/08/19 amlodipine 5 mg tablet 10 mg PO DAILY htn 02/07/22 tamsulosin 0.4 mg capsule 0.4 mg PO Q24H md ordered 02/07/22 biotin 100 mcg PO DAILY daily vitamin 12/10/22 calcium citrate 500 mg PO DAILY daily vitamin 12/10/22 evrafqlh-vxpo-dpa-folic acid 18 mg-0.4 mg tablet (One Daily Complete) 1 tab PO DAILY vitamin 12/10/22 vit B12 50 mcg-iodine 75 mcg-mag 100 nx-aajt-drawcgvn-herb 193 capsule 1 cap PO DAILY vitamin 12/10/22 zinc 50 mg tablet 50 mg PO DAILY vitamin 12/10/22 metformin 1,000 mg tablet 1,000 mg PO BID diabetes 30 days #60 tabs 12/12/22 ascorbic acid (vitamin C) 500 mg tablet,extended release (C Complex) 500 mg PO DAILY daily vitamin 05/01/23 tirzepatide 2.5 mg/0.5 mL subcutaneous pen injector (Mounjaro) 2.5 mg subcut QWEEK Diabetes 05/01/23 oxycodone 5 mg capsule 5 mg PO Q6H PRN pain 7 days #28 caps 05/07/23 hydrochlorothiazide 25 mg tablet 25 mg PO DAILY #30 tabs 05/12/23 lisinopril 40 mg tablet 40 mg PO DAILY #30 tabs 05/12/23 piperacillin-tazobactam 3.375 gram intravenous solution 3.375 g IV Q8H 37 days 05/12/23 Hospital Course Operations None Procedures None Summary of Care Provided Minutes Spent on Discharge: 45 Hospital Course: Patient is a 47-year-old male with a past medical history as outlined was admitted through the ED on 05/09/2023 with a complaint of foot wound. Patient had a foot fracture and not had surgery for it but had had abnormal healing of this foot fracture of the left foot. He had been following up at the wound care center. He was called by the wound center nurse about his intraoperative culture results and was told to come to the office or to the ED for evaluation. Patient decided to come into the ED. Cultures done for Enterococcus and gram-positive rods. He had been placed on antibiotics on outpatient basis but this had not been improving so he had had an Achilles tendon lengthening with bone biopsy and culture with wound debridement. There was this bone biopsy and culture results which grew Enterococcus faecalis, alphahemolytic strep and Pseudomonas the patient was called to come into the ED. He was started on IV vancomycin and cefepime in light of his penicillin allergy. ID was consulted. Podiatry was also consulted. Antibiotics were switched to IV vancomycin and Levaquin. ID reviewed patient and recommended that due to concerns about osteomyelitis, patient will be discharged on IV Zosyn for 6 weeks, with a stop date of 06/18/2023. He did have a history of hives with Augmentin but had tolerated amoxicillin in the past. Per ID, patient will therefore go on Zosyn but if he did not tolerated then would be switched to meropenem. Patient had a PICC line inserted and was discharged home with home health on 05/12/2023. Discharge was however counseled on 05/12/2023. Family request because they were concerned about him missing his antibiotic whilst waiting for home health to come administer his antibiotics the next day. Patient was therefore discharged home on 05/13/2023. As stated he is to be on IV Zosyn at for 6 weeks with a stop date of 06/18/2023 to be transition to meropenem if he does not tolerate Zosyn. He is follow-up with his primary care doctor and with ID as well as podiatry within 1 to 2 weeks. Patient seen and examined prior to discharge. He had no active complaints. Review of systems otherwise negative. Labs and vitals reviewed. Home medication reviewed and reconciled. Physical Exam Const alert, oriented x3, no apparent distress, healthy appearing and well nourished General Appearance: cooperative, comfortable, well kempt and well developed Orientation / Consciousness: awake HEENT normocephalic, head/scalp atraumatic, hearing grossly normal bilaterally, moist oral mucous membranes and oropharynx normal Mouth: oral and palatal mucosa normal Eyes PERRL and EOMs intact bilaterally Neck no lymphadenopathy and supple Lymph Lymphatic: no lymphadenopathy noted and no lymphedema noted Resp normal respiratory effort, normal air movement, no retractions, no use of accessory muscles and clear to auscultation bilaterally Auscultation: Negative for rales, rhonchi or wheezes Cardio regular rate, regular rhythm, S1 normal heart sound, S2 normal heart sound, no murmurs, no rub, no gallops and no clicks GI normal to inspection, nondistended, normoactive bowel sounds, soft to palpation, non-tender and non-distended Extremity Extremity Narrative: left foot wrapped in bandage Skin Skin Narrative: as under extremities. left foot wrapped in bandage Neuro oriented x3, CN's II-XII intact bilaterally, moves all extremities and no focal motor deficits Speech: speech normal Motor Exam: strength 5/5 throughout Psych thought process normal, cooperative and affect normal Appearance: appropriate Weight / BMI Weight Weight: 260 lb 2.327 oz Body Mass Index (BMI) 30.8 ABG / Lab / Microbiology Data 05/13/23 06:47 05/13/23 06:47 Laboratory: Laboratory Results - last 24 hr 05/12/23 12:08: POC Glucose 219 H 05/12/23 16:51: POC Glucose 199 H 05/12/23 20:41: POC Glucose 176 H 05/13/23 06:47: WBC 4.7, RBC 4.95, Hgb 14.6, Hct 42.4, MCV 85.7, MCH 29.5, MCHC 34.4, RDW Std Deviation 36.2, RDW Coeff of Julianna 11.7, Plt Count 244, MPV 10.0, Immature Gran % (Auto) 0.200, Neut % (Auto) 55.7, Lymph % (Auto) 31.6, Brule % (Auto) 8.8, Eos % (Auto) 2.8, Baso % (Auto) 0.9, Absolute Neuts (auto) 2.6, Absolute Lymphs (auto) 1.47, Nucleated RBC % 0, Sodium 135 L, Potassium 3.6, Chloride 104, Carbon Dioxide 29.0, Anion Gap 2 L, BUN 15, Creatinine 1.10, Estim Creat Clear Calc 116.93, Est GFR (MDRD) Af Amer 92, Est GFR (MDRD) Non-Af 76, BUN/Creatinine Ratio 13.6, Glucose 162 H, Calcium 9.5 05/13/23 06:59: POC Glucose 164 H D/C Instructions Discharge Diet: Low fat / Low cholesterol Discharge Activity: Return to Normal Activity Weight Bearing Status: Weight bearing as tolerated Call your doctor if your incision/area has: Continuous Slow Oozing, Sudden Increased Bleeding, Increased Pain/ Swelling, Increased Redness, Foul Smelling Discharge and Swelling at the incision site Call your doctor if you observe: Fever of 101 or Higher, Shortness of breath, Dizziness, Swelling in the ankles, Chest pain and Uncontrolled pain Meaningful Use Info Meaningful Use Diagnoses (Choose all that apply): None applicable Discharge Plan Admission Admit Date/Time: 05/09/23 16:09 Primary Reason for Your Visit: left foot osteomyelitis Attending Provider: Junie Cummings Primary Care Provider: SCOTT FREED Consulting Providers: Isaac Lucero; Bryan Dunlap; Kendy Mendez; Sis Hassan; Terry Escobedo Discharge Orders/Prescriptions Prescriptions: New piperacillin-tazobactam 3.375 gram recon soln 3.375 g IV Q8H 37 Days Rx Instructions: stop date 06/18/23 dx: foot osteo weekly bmp, cbc, and esr. Fax to [phone] hydrochlorothiazide 25 mg Tablet 25 mg PO DAILY Qty: 30 2RF lisinopril 40 mg Tablet 40 mg PO DAILY Qty: 30 2RF Continued metoprolol succinate 50 mg tablet extended release 24 hr 100 mg PO DAILY cholecalciferol (vitamin D3) 50,000 unit capsule 50,000 unit PO QWEEK Qty: 12 3RF Patient Comments: every thursday (DME) OneTouch Verio test strips Strip See Rx Instructions .ROUTE .MEDSUPPLY Qty: 10 Rx Instructions: use to check BG 4 x qd (DME) blood-glucose meter [OneTouch Verio Meter[place] [facility] [place]OUTE .MEDSUPPLY Qty: 1 Rx Instructions: As directed amlodipine 5 mg tablet 10 mg PO DAILY Patient Comments: TAKE 1 TABLET BY MOUTHcONCE DAILY tamsulosin 0.4 mg capsule 0.4 mg PO Q24H Patient Comments: TAKE 1 CAPSULE BY MOUTHUONCE DAILY [id number] 50 mcg-75 mcg -100 mg capsule 1 cap PO DAILY biotin 100 mcg PO DAILY calcium citrate 250 mg calcium tablet 500 mg PO DAILY One Daily Complete 18-0.4 mg tablet 1 tab PO DAILY zinc 50 mg tablet 50 mg PO DAILY metformin 1,000 mg tablet 1,000 mg PO BID 30 Days Qty: 60 0RF ascorbic acid (vitamin C) [C Complex] 500 mg tablet extended release 500 mg PO DAILY Mounjaro 2.5 mg/0.5 mL pen injector 2.5 mg subcut QWEEK oxycodone 5 mg capsule 5 mg PO Q6H PRN (Reason: pain) 7 Days Qty: 28 0RF Discontinued lisinopril-hydrochlorothiazide 20-12.5 mg tablet 1 tab PO DAILY Patient Comments: TAKE TWO TABLETS BY MOUTHiONCE DAILY Referrals / Follow Up: SCOTT FREED DO [Primary Care Provider] - 05/19/23 9:20 am Isaac Luecro DPM [Med Staff - Active Staff] - 05/26/23 2:15 pm Terry Escobedo MD [Med Staff - Active Staff] - 05/27/23 2:00 pm (This is at the [place] office at the [facility].) Disposition Disposition (needs filled in before D/C Order can be placed): Home Health Service Charges/Coding Visit Charges Inpatient E&M: 52524 Disch Hosp >30min
[2023-05-13] MEDS: oxyCODONE 5 MG Tablet PO (10:10)
[2023-05-13] MEDS: 0.9% Saline Lock 10 ML Syringe IV (10:10)
[2023-05-13 10:12] VITALS: BP 141/84
--- NOTE | 2023-05-13 10:28 | PHA.DC.MR.R ---
Pharmacy [place] Med Reconciliation Pharmacy Service has performed discharge medication reconciliation for this patient. The patient's discharge medication list was reviewed for discrepancies and discrepancies were resolved. Medications at Discharge Home Medications blood sugar diagnostic (OneTouch Verio test strips) #10 ea 02/11/19 blood-glucose meter (OneTouch Verio Meter) #1 ea 02/11/19 cholecalciferol (vitamin D3) 1,250 mcg (50,000 unit) capsule 50,000 unit PO QWEEK vitamin #12 caps 03/08/19 metoprolol succinate 50 mg tablet,extended release 24 hr 100 mg PO DAILY htn 03/08/19 amlodipine 5 mg tablet 10 mg PO DAILY htn 02/07/22 tamsulosin 0.4 mg capsule 0.4 mg PO Q24H md ordered 02/07/22 biotin 100 mcg PO DAILY daily vitamin 12/10/22 calcium citrate 500 mg PO DAILY daily vitamin 12/10/22 bboyxyot-ldim-gtm-folic acid 18 mg-0.4 mg tablet (One Daily Complete) 1 tab PO DAILY vitamin 12/10/22 vit B12 50 mcg-iodine 75 mcg-mag 100 ee-aasr-xrolmlvm-herb 193 capsule 1 cap PO DAILY vitamin 12/10/22 zinc 50 mg tablet 50 mg PO DAILY vitamin 12/10/22 metformin 1,000 mg tablet 1,000 mg PO BID diabetes 30 days #60 tabs 12/12/22 ascorbic acid (vitamin C) 500 mg tablet,extended release (C Complex) 500 mg PO DAILY daily vitamin 05/01/23 tirzepatide 2.5 mg/0.5 mL subcutaneous pen injector (Mounjaro) 2.5 mg subcut QWEEK Diabetes 05/01/23 oxycodone 5 mg capsule 5 mg PO Q6H PRN pain 7 days #28 caps 05/07/23 hydrochlorothiazide 25 mg tablet 25 mg PO DAILY #30 tabs 05/12/23 lisinopril 40 mg tablet 40 mg PO DAILY #30 tabs 05/12/23 piperacillin-tazobactam 3.375 gram intravenous solution 3.375 g IV Q8H 37 days 05/12/23
== END 2023-05-13 10:22 | disposition home health service (06) | DRG 638 ==
LOC: ED 13:37 → MS3 16:07
PROVIDERS: Internal Medicine; Admitting Provider Internal Medicine; Emergency Provider Emergency Medicine; PCP Family Medicine; Visit Provider Student in an Organized Health Care Education/Training Program
DX: E11.69 Type 2 diabetes mellitus with other specified complication (principal); L02.612 Cutaneous abscess of left foot; N13.8 Other obstructive and reflux uropathy; M86.172 Other acute osteomyelitis, left ankle and foot; E11.610 Type 2 diabetes mellitus with diabetic neuropathic arthropathy; E11.621 Type 2 diabetes mellitus with foot ulcer; E11.42 Type 2 diabetes mellitus with diabetic polyneuropathy; L97.521 Non-pressure chronic ulcer of other part of left foot limited to breakdown of skin; E11.65 Type 2 diabetes mellitus with hyperglycemia; B96.5 Pseudomonas (aeruginosa) (mallei) (pseudomallei) as the cause of diseases classified elsewhere; I10 Essential (primary) hypertension; E55.9 Vitamin D deficiency, unspecified; E78.00 Pure hypercholesterolemia, unspecified; Z79.84 Long term (current) use of oral hypoglycemic drugs; Z87.891 Personal history of nicotine dependence; Z98.84 Bariatric surgery status; N40.1 Benign prostatic hyperplasia with lower urinary tract symptoms; S92.902D Unspecified fracture of left foot, subsequent encounter for fracture with routine healing
CPT/HCPCS: 36415; 36569; 80048; 80053; 80202; 82962; 83036; 83735; 84100; 85025; 85652; 86140; 93923; 94668; 97802; 99252; 99283; J7040; J7050; A4216; G0463

== ENCOUNTER 2023-05-19 07:47 | Outpatient (RCR) | payer OTHER, SELFPAY ==
--- NOTE | 2023-05-12 11:40 | PCM.PROGNOTE ---
Subjective Subjective Patient seen bedside today. Denies constitutional symptoms. No pain to surgical site. Received PICC line last night. Awaiting final antibiotics prior to discharge. Physical Exam Narrative Neurologic: Light touch protective sensation absent to bilateral feet. Vascular: Capillary fill time brisk to all digits bilaterally. Dermatologic: Incision lateral midfoot intact well-approximated with intact sutures. Full-thickness wound to plantar lateral midfoot improved in size. Superficial nature. No residual signs of acute infection. Musculoskeletal: No sign DVT bilaterally. Const alert and oriented x3 Assessment & Plan Assessment/Plan (1) Osteomyelitis of foot, left, acute: PLAN: Exam performed Betadine Adaptic applied to wound site and lateral incision with dry sterile dressing and a well-padded AO splint. Awaiting final antibiotics. Zosyn versus meropenem per infectious disease. Arterial studies within normal limits, vascular on board Patient stable to DC follow-up in wound center in 1 week. Maintain nonweightbearing left foot assisted by knee scooter or crutches. (2) Charcot's joint, left ankle and foot: (3) Type 2 diabetes mellitus with diabetic polyneuropathy: QUALIFIERS: Diabetes mellitus terminologist insulin use: without assisted use Qualified Code(s): E11.42 - Type 2 diabetes mellitus with diabetic polyneuropathy
[2023-05-19 07:56] VITALS: BP 159/82; PULSE 69; RESP 20; TEMP 36.2; BMI 30.2
--- NOTE | 2023-05-19 08:51 | PN.PCM_ITS ---
History of Present Illness Date of Service: 05/19/23 Chief Complaint: Follow-up DFU L lateral foot History of Wound: 47-year-old male with chronic left diabetic foot ulceration in setting of Charcot foot status post plantar planing, tendo Achilles lengthening, bone biopsy and culture date of surgery was 05/07/2023. Bone cultures were positive. Patient is on PICC line and is receiving antibiotics per infectious disease. Patient denies constitutional symptoms. Patient has been nonweightbearing assisted by knee scooter to left lower extremity. No other complaints. Objective Data Objective Data Vital Signs: Vital Signs Temp Pulse Resp BP 97.2 F L 69 20 H 159/82 H 05/19/23 07:56 05/19/23 07:56 05/19/23 07:56 05/19/23 07:56 Weight: 115.747 kg Body Mass Index (BMI) 30.2 Physical Exam Narrative Neurovascular status unchanged. Patient has peripheral neuropathy with loss of protective and vibratory sensation. Patient has intact pulses. Some evidence of microvascular disease demonstrated by atrophic skin changes with skin thinning taut shiny appearance. Small full-thickness wound 0.1 x 1.1 x 1.1 cm to plantar lateral left midfoot. No acute signs of infection. Lateral foot incision is well-approximated with intact sutures. No evidence of breakdown or infection. Small percutaneous incisions to posterior left ankle well-approximated with intact sutures no signs of infection to left. No evidence DVT bilaterally. Const alert and oriented x3 Debridement Note Debridement Note Post-Debridement Measurements and Additional Note: Post-Debridement Measurements/Treatment WC - Nurse 1 - General Ulcer Assessment Start: 05/19/23 07:55 Freq: Status: Active Protocol: DAVIN.LOWEXT Activity Type Activity Date Activity User E-sign Co-sign Detail Recorded Client Recorded Date Recorded By Document 05/19/23 07:56 DL Desktop 05/19/23 08:17 DL Edit Result 05/19/23 07:56 DL (1) [id number] 05/19/23 08:28 DL Edit Result 05/19/23 07:56 DL (2) [id number] 05/19/23 08:37 DL (1) Height => 6 ft 5 in Weight => 115.747 kg Weight in Pounds => 255.2 lbs Body Mass Index (BMI) => 30.2 BMI Classification => Obese BSA - Genevieve => 2.48 (2) Preferred language => Beninese Able to Read => Yes Able to Write => Yes Communication Tools => None Right Hearing Abillity => Normal Left Hearing Abillity => Normal Preferences => Verbal,Written, => Demonstration Barriers to Learning => None Readiness To Learn => Good Willingness to Engage in Self Management => Med Activies Readiness to Engage in Self Management => Med Activities Anxiety Level => Calm Cooperation => Cooperative Perception => Coherent Interest in Health Problem => Asks Questions Education Importance => Acknowledges Need Does Patient Smoke tobacco or other => Yes substances Smoking Status => Never smoker Is Patient Diabetic => Yes Recent Decline in Ability to Perform => Denies Any => Declines Assistive Device With Patient => Yes List Device(s) with Patient => knee walker Cultural/Mormon Needs that may affect => No Treatment Plan Would you allow our [facility] food selector to => No meet you for the purpose of spiritual/ emotional support? Professor Of Latin American Studies to contact place of pentecostal => No Discharge Instructions - Person Taught => Patient Dressing Your Wound - Person Taught => Patient *Infection - Person Taught => Patient *Welcome to the Wound Center - Person Taught => Patient 05/19/23 07:56 WC - Today's Visit Information Type of service Initial Visit Arrival Mode Ambulatory, Walker Arrival Mode (Other) knee walker Patient Identification Verified (Name & Yes ) Patient Requires Transmission-Based No Precautions Height and Weight Height 6 ft 5 in Weight 115.747 kg Weight in Pounds 255.2 lbs Body Mass Index (BMI) 30.2 BMI Classification Obese BSA - Genevieve 2.48 Vital Signs Temperature (97.8 F-99.1 F) 97.2 F L Temperature Source Temporal Pulse Rate (60-100) 69 Pulse Location Monitor Respiratory Rate (12-18) 20 H Respiratory rate source Observation Blood Pressure (90/60-120/80) 159/82 H Blood Pressure Mean (mm Hg) 107 Source Monitor History Since Last Visit- (Skip if this is Patient's initial visit) Left Footwear Regular Shoe Right Footwear No Footwear Pain Scale: 0-10 Numeric Is Patient Pain Free? Yes Communication Assessment Preferred language Beninese Able to Read Yes Able to Write Yes Communication Tools None Right Hearing Abillity Normal Left Hearing Abillity Normal Teaching Assessment Preferences Verbal,Written, Demonstration Barriers to Learning None Readiness To Learn Good Willingness to Engage in Self Management Med Activies Readiness to Engage in Self Management Med Activities Anxiety Level Calm Cooperation Cooperative Perception Coherent Interest in Health Problem Asks Questions Education Importance Acknowledges Need Does Patient Smoke tobacco or other Yes substances Smoking Status Never smoker Is Patient Diabetic Yes Functional Assessment Recent Decline in Ability to Perform Denies Any Declines Assistive Device With Patient Yes List Device(s) with Patient knee walker Culture/Mormon/Professor Of Latin American Studies Cultural/Mormon Needs that may affect No Treatment Plan Would you allow our [facility] food selector to No meet you for the purpose of spiritual/ emotional support? Professor Of Latin American Studies to contact place of pentecostal No Teaching: Wound Center Discharge Instructions -Person Taught Patient Dressing Your Wound -Person Taught Patient *Infection -Person Taught Patient *Welcome to the Wound Center -Person Taught Patient WC - Nurse 1 - General Ulcer Measurement Start: 05/19/23 07:55 Freq: Status: Active Protocol: Activity Type Activity Date Activity User E-sign Co-sign Detail Recorded Client Recorded Date Recorded By Document 05/19/23 07:56 DL Desktop 05/19/23 08:17 DL 05/19/23 07:56 Wound Center Nurse 1 #5 L Achilles -Current Size (cm) - Length 0.1 -Current Size (cm) - Width 0.1 -Current Size (cm) - Depth 0.1 -Total Square Cm 0.01 -Photo Taken Yes -Exudate Amt None Present -Wound Margin Distinct, Outline Attached -Granulation Amt Large (67-100%) -Granulation Quality [place] -Necrosis Amt None Present (0 %) -Structure Exposed N/A -Texture (Mariama-wound Skin Appearance) Localized Edema ,Scarring -Moisture (Mariama-wound Skin Appearance) No Abnormality -Color (Mariama-wound Skin Appearance) No Abnormality -Temperature (Mariama-wound Skin No Abnormality Appearance) (Pt Warm) -Tenderness on Palpation (Mariama-wound No Skin Appearance) -Ulcer Cleansing Soap and Water -Foul Odor after Cleansing No -Wound Comment(s) sutures intact #4 L Lat Plantar Foot -Current Size (cm) - Length 0.1 -Current Size (cm) - Width 0.1 -Current Size (cm) - Depth 0.1 -Total Square Cm 0.01 -Photo Taken Yes -Exudate Amt None Present -Wound Margin Distinct, Outline Attached -Granulation Amt Large (67-100%) -Granulation Quality [place] -Necrosis Amt None Present (0 %) -Structure Exposed N/A -Texture (Mariama-wound Skin Appearance) Localized Edema ,Scarring -Moisture (Mariama-wound Skin Appearance) No Abnormality -Color (Mariama-wound Skin Appearance) No Abnormality -Temperature (Mariama-wound Skin No Abnormality Appearance) (Pt Warm) -Tenderness on Palpation (Mariama-wound No Skin Appearance) -Ulcer Cleansing Soap and Water -Foul Odor after Cleansing No -Wound Comment(s) Sutures intact WC - Nurse 2 - General Ulcer CM Notes Start: 05/19/23 07:55 Freq: Status: Active Protocol: Activity Type Activity Date Activity User E-sign Co-sign Detail Recorded Client Recorded Date Recorded By Document 05/19/23 08:37 Laptop 05/19/23 08:38 05/19/23 08:37 Wound Center Nurse 2 #5 L Achilles -Correct Patient No -Correct Side, Site, Position No -Correct Procedure No -Procedure Performed No -Post Debridement (cm) - Length 0.1 -Post Debridement (cm) - Width 0.1 -Post Debridement (cm) - Depth 0.1 -Total Square (Post) (cm) 0.01 -Area of Debridement (cm) - Length 0.1 -Area of Debridement (cm) - Width 0.1 -Total Square (Area) (cm) 0.01 -Wound/Ulcer Outcome Not Healed -Type of Offloading Total Contact Cast (TCC) - Left ($) -Debridement - Subq, 1st 20sq cm No #4 L Lat Plantar Foot -Correct Patient No -Correct Side, Site, Position No -Correct Procedure No -Procedure Performed No -Post Debridement (cm) - Length 0.1 -Post Debridement (cm) - Width 0.1 -Post Debridement (cm) - Depth 0.1 -Total Square (Post) (cm) 0.01 -Area of Debridement (cm) - Length 0.1 -Area of Debridement (cm) - Width 0.1 -Total Square (Area) (cm) 0.01 -Wound/Ulcer Outcome Not Healed -Type of Offloading Total Contact Cast (TCC) - Left ($) -Debridement - Subq, 1st 20sq cm No Pain Scale: 0-10 Numeric Is Patient Pain Free? Yes DAVIN - Nurse 3 - General Ulcer D/C NN Start: 05/19/23 07:55 Freq: Status: Active Protocol: Activity Type Activity Date Activity User E-sign Co-sign Detail Recorded Client Recorded Date Recorded By Document 05/19/23 08:42 RB Desktop 05/19/23 08:44 RB 05/19/23 08:42 Wound Care Center Nurse 3 #5 L Achilles -Other Dressing bacitracin -Primary Dressing Covered/Secured with Dry Gauze #4 L Lat Plantar Foot -Other Dressing bacitracin -Primary Dressing Covered/Secured with Dry Gauze Treatment Response Procedure Tolerated Well Pain Scale: 0-10 Numeric Is Patient Pain Free? Yes WC - Visit Discharge Discharge Condition Stable Ambulatory Status Ambulatory, Walker Transportation Private Auto Medication Reconcilliation completed & No provided to patient/care provider Clinical Summary of Care Provided Yes Notes: kneewalker primary layer of TCC applied left applied per Martha Dorantes Assessment/Plan Assessment/Plan (1) Short Achilles tendon (acquired), left ankle: CODE(S): M67.02 - Short Achilles tendon (acquired), left ankle PLAN: Exam performed Radiographs ordered left foot Left foot wound nearly healed today Left foot wound cleansed, redressed with antibiotic ointment dry sterile dressing as well as antibiotic ointment Adaptic to the incisional sites. Applied total contact cast to left lower extremity with the foot held in a rectus position with adequate padding to prevent any irritation. Patient will follow-up in 1 week. Patient will continue IV antibiotics per infectious disease via PICC line. Patient on Zosyn until 06/18/2023. Bone cultures positive for Enterococcus faecalis, Pseudomonas aeruginosa, contaminant. Will continue to follow closely. (2) Osteomyelitis: CODE(S): M86.9 - Osteomyelitis, unspecified QUALIFIERS: Laterality: left Osteomyelitis location: foot O steomyelitis type: unspecified type Qualified Code(s): M86.9 - Osteomyelitis, unspecified
== END 2023-05-20 23:59 | disposition home or self-care (01) ==
LOC: WC 07:47
PROVIDERS: PCP Family Medicine; Referring Provider Podiatrist; Visit Provider Podiatrist
DX: E11.621 Type 2 diabetes mellitus with foot ulcer (principal); L97.509 Non-pressure chronic ulcer of other part of unspecified foot with unspecified severity; M86.172 Other acute osteomyelitis, left ankle and foot; E11.42 Type 2 diabetes mellitus with diabetic polyneuropathy; M67.02 Short Achilles tendon (acquired), left ankle
CPT/HCPCS: 29445; 99214; G0463

== ENCOUNTER → 2023-05-22 | Outpatient (CLI) | payer OTHER, SELFPAY ==
--- NOTE | 2023-05-22 16:13 | RAD_ITS ---
INDICATION: PAIN IN LEFT FOOT EXAMINATION/TECHNIQUE: X-RAY - LEFT XR Foot Min 3 Views 3 VIEWS COMPARISON: Prior study dated: 12/09/2022 FINDINGS: SOFT TISSUES: The foot is in cast obscuring the soft tissue details. No radiopaque foreign body. BONES/JOINTS: No acute fracture or subluxation.. Normal alignment. The joint spaces are unchanged. No evidence of erosions. Deformity of the proximal aspect of the fifth metatarsal with cortical thickening and sclerosis unchanged since the prior exam. Plantar and posterior calcaneal spurs are again seen. RAD/Foot min 3 Views IMPRESSION: No significant change. Electronically Signed: Chavo Collins MD at 18:03 EST ,
--- OUTSIDE RECORDS SUMMARY | 2023-05-22 18:01 | XMS RPT_ITS | CCD ---
Author Name Unknown Address [address] [place] [address] Organization [facility] Care Team Providers Care Paratransit Driver Name Role Phone Vicenta Rai DO Primary Care Provider VICENTA RAI Attending Unavailable VICENTA RAI Primary Care Unavailable VICENTA RAI Attending Unavailable VICENTA RAI Primary Care Unavailable VICENTA RAI Primary Care Unavailable VICENTA RAI Attending Unavailable VICENTA RAI Primary Care Unavailable LESLYE MOLINA Attending Unavailable Allergies Allergy Classification Reported Allergen(s) Allergy Type Date of Onset Reaction(s) Facility (13 sources) Penicillins Drug Intolerance 07-07-2016 [facility] (13 sources) Amoxicillin-Pot Clavulanate Drug Allergy 06-16-2006 [facility] Medications Current Medications Medication Drug Class(es) Dates Sig (Normalized) Sig (Original) amLODIPine 10 mg oral tablet (14 sources) Dihydropyridine Calcium Channel Damon Start: 03-04-2023 [...] 01-30-2022 01-05-2023 Chronic Diabetes mellitus without complication (13 sources) Diabetes mellitus; Translations: [Type 2 diabetes mellitus without complications] Onset: 09-29-2018 01-30-2022 Chronic Disorders of lipid metabolism (13 sources) Hyperlipidemia; Translations: [Hyperlipidemia, unspecified] Onset: 09-29-2018 01-30-2022 Chronic Essential hypertension (16 sources) Hypertensive disorder; Translations: [Essential (primary) hypertension] Onset: 09-29-2018 01-30-2022 Chronic Hyperplasia of prostate (2 sources) Benign prostatic hyperplasia with lower urinary tract symptoms; Translations: [Benign prostatic hyperplasia with lower urinary tract symptoms] Onset: 09-05-2022 Chronic Nutritional deficiencies (2 sources) Vitamin D deficiency, unspecified; Translations: [Vitamin D deficiency, unspecified] Onset: 09-05-2022 Chronic Other liver diseases (13 sources) Steatosis of liver; Translations: [Fatty (change of) liver, not elsewhere classified] Onset: 09-29-2018 01-30-2022 Chronic Other nervous system disorders (13 sources) Neuropathy; Translations: [Polyneuropathy, unspecified] Onset: 09-29-2018 [...] Date Time Vital Sign Value Performing Clinician Mary trinidad 04-28-2023 08:22-0500 Diastolic blood pressure 80 mm[Hg] Leslye Molina PA-C Work Phone: [employer] 04-28-2023 08:22-0500 Systolic blood pressure 144 mm[Hg] Leslye Barro PA- C Work Phone: [employer] 04-28-2023 07:58-0500 Body height 195.6 cm Leslye Barro PA-C Work Phone: [employer] 04-28-2023 07:58-0500 Body mass index (BMI) [Ratio] 31.07 kg/m2 Leslye Molina PA-C Work Phone: [employer] 04-28-2023 07:58-0500 Body temperature 98.1 [degF] Leslye Molina PA-C Work Phone: [employer] 04-28-2023 07:58-0500 Body weight 118.84 kg Leslye Molina PA-C Work Phone: [employer] 04-28-2023 07:58-0500 Heart rate 69 /min Leslye Molina PA-C Work Phone: [employer] 04-28-2023 07:58-0500 SaO2% (BldA) [Mass fraction] 99 % Leslye Molina PA-C Work Phone: [employer] 02-27-2023 08:49-0500 Diastolic blood pressure 88 mm[Hg] Vicenta Rai DO Work Phone: [employer] 02-27-2023 08:49-0500 Systolic blood pressure 160 mm[Hg] Vicenta Rai DO Work Phone: [employer] 02-27-2023 08:18-0500 Body height 195.6 cm Vicenta Rai DO Work Phone: [employer] 02-27-2023 08:18-0500 Body mass index (BMI) [Ratio] 30.95 kg/m2 Vicenta Rai DO Work Phone: [employer] 02-27-2023 08:18-0500 Body weight 118.39 kg Vicenta Rai DO Work Phone: [employer] 02-27-2023 08:18-0500 Heart rate 60 /min Vicenta Rai DO Work Phone: [facility] 02-27-2023 08:18-0500 SaO2% (BldA) [Mass fraction] 99 % Vicentaaimee Rai DO Work Phone: [facility] 01-05-2023 14:06-0400 Body height 195.6 cm Vicenta Rai DO Work Phone: [facility] 01-05-2023 14:06-0400 Body mass index (BMI) [Ratio] 29.76 kg/m2 Vicenta Rai DO Work Phone: [facility] 01-05-2023 14:06-0400 Body weight 113.85 kg Vicenta Rai DO Work Phone: [facility] 01-05-2023 14:06-0400 Diastolic blood pressure 81 mm[Hg] Vicenta Rai DO Work Phone: [facility] 01-05-2023 14:06-0400 Heart rate 54 /min Vicenta Rai DO Work Phone: [facility] 01-05-2023 14:06-0400 SaO2% (BldA) [Mass fraction] 98 % Vicenta Rai DO Work Phone: [facility] 01-05-2023 14:06-0400 Systolic blood pressure 134 mm[Hg] Vicenta Rai DO Work Phone: [facility] Encounters Encounter Date Encounter Type Care Provider Facility Start: 05-18-2023 Telephone encounter Vicenta Rai DO Work Phone: [facility] Procedures Date Procedure Procedure Detail Performing Clinician Start: 04-28-2023 Complete blood count with white cell differential, automated Leslye Molina PA-C Work Phone: Start: 04-28-2023 End: 04-28-2023 Hemoglobin glycosylated a1c Leslye Molina PA-C Work Phone: Start: 02-27-2023 Comprehensive metabo lic panel Vicenta Rai DO Work Phone: Start: 02-27-2023 Lipid panel Vicenta Rai DO Work Phone: Start: 02-27-2023 PSA TOTAL (SCREENING) C hrnia Mitchell Cecelia DO Work Phone: Start: 02-27-2023 Urnls dip stick/tabl et rgnt auto w/o microscopy Vicenta Mitchell Cecelia DO Work Phone: Start: 02-27-2023 Lipid 1996 panel - S tony or Plasma Vicenta Rai DO Work Phone: Start: 08-28-2021 Lipid 1996 panel - S tony or Plasma Melissa Buckley RN Plan of Treatment Date Care Activity Detail Author Start: 2034 RSV Immunization age d 60 or older (1 - 1-dose 60+ series) RSV Immunization aged 60 or older (1 - 1-dose 60+ series) [facility] Start: 08-01-2026 DTaP/Tdap/Td Vaccine s (2 - Td or Tdap) DTaP/Tdap/Td Vaccines (2 - Td or Tdap) [facility] Start: 2024 Zoster Vaccines (1 of 2) Zoster Vacc pedro luis (1 of 2) [facility] Start: 04-28-2024 Hemoglobin A1c measurement Diabetes: Hemoglobin A1C [facility] Start: 02-28-2024 Hemoglobin A1c measurement Diabetes: Hemoglobin A1C [facility] Start: 02-28-2024 Lipid panel Lipid Panel [facility] Start: 06-03-2023 Glaucoma screening Diabetes: R etinopathy Screening [facility] Start: 05-25-2023 End: 05-25-2023 Patient encounter procedure 05/25/2023 10:40 AM EST Office Visit [facility] [address] [place] [address] Leslye Molina PA-C [address] [place] [address] [place] [address] [facility] Start: 05-19-2023 End: 05-19-2023 Patient encounter procedure 05/19/2023 9:20 AM EST Office Visit [facility] [address] [place] [address] Vicenta Rai, DO [address] [place] [id number] [facility] Start: 04-28-2023 End: 04-28-2024 CBC W Auto Differential panel - Blood CBC auto differential Lab Routine Type 2 diabetes mellitus with hyperglycemia, without long-term current use of insulin (HCC) Pre-op evaluation Expected: 04/28/2023 (Approximate), Expires: 04/28/2024 [facility] Work Phone: Immunizations Immunization Date Immunization Notes Care Provider Fa cility 08-18-2020 Pfizer SARS-CoV-2 Vaccination Melissa Buckley RN [facility] 07-28-2020 Pfizer SARS-CoV-2 Vaccination Melissa Buckley RN [facility] Payers Date Payer Category Payer Unknown [facility] ARE [id number] 2023-Present [address] [place] [address] Commercial [id number] 2023 Unknown [id number] 2022 Private Health Insurance [id number] 2022 Private Health Insurance [id number] 2022 Private Health Insurance [id number] Social History Date Type Detail Facility Tobacco smoking status NHIS Never smoked tobacco [facility] Start: 09-05-2022 End: 04-28-2023 Alcohol intake Current non-drinker of alcohol (finding) [facility] Start: 09-05-2022 End: 04-28-2023 History of Social function [facility] Start: 09-05-2022 End: 04-28-2023 Tobacco use panel [facility] Start: 1975 Sex Assigned At Not on file [facility] Start: 02-06-2022 Gender identity Identifies as male gender (finding) [facility] Start: 10-20-2022 Sexual orientation Heterosexual (fin ding) [facility] Start: 12-26-2022 End: 01-05-2023 Exposure to SARS-CoV-2 (event) Not sure [facility] Start: 1975 Sex Assigned At Male [facility] Clinical Notes 06-28-2020 to 05-18-2023 Telephone Encounter - Danuta Coon - 05/18/2023 9:32 AM ESTTelephone Encounter - Danuta Coon - 05/18/2023 9:32 AM ESTTelephone Encounter - Danuta Coon - 05/12/2023 3:50 PM EST Note Date & Type Note Facility 05-18-2023 Telephone encounter Note Name of caller: Alexis Contact phone number: [phone] Relationship to Patient: Pt Provider: Practice: [facility] Chief Complaint/Reason for Call: Pt is wanting to know if he can change appt 05/19/2023 as he has other appts that day please advise Best time of day caller can be reached: any Patient advised that office/PCP has 24-48 business hours to return their call: No [facility] 05-18-2023 Miscellaneous Notes Name of caller: Alexis Contact phone number: [phone] Relationship to Patient: Pt Provider: Practice: [facility] Chief Complaint/Reason for Call: Pt is wanting to know if he can change appt 05/19/2023 as he has other appts that day please advise Best time of day caller can be reached: any Patient advised that office/PCP has 24-48 business hours to return their call: No documented in this encounter [facility] 05-12-2023 Telephone encounter Note . [facility] 05-12-2023 Miscellaneous Notes . documented in this encounter [facility] 04-28-2023 Note Addended by: LESLYE MOLINA on: 04/29/2023 07:52 AM Modules accepted: Level of Service [facility] 04-28-2023 Evaluation + Plan note Associated [...] have delayed primary closure of the wound [facility] 04-28-2023 Miscellaneous Notes Associated Problem(s): Diabetes [...] of the wound documented in this encounter [facility] 04-28-2023 Miscellaneous Notes Associated Problem(s): Diabetes [...] Level of Service documented in this encounter [facility] 04-28-2023 History of Presen t illness Narrative Images from the original note were not included. [facility] [address] [facility] [address] Dept: [phone] Dept Loc: [phone] Visit type: Established Patient Reason for Visit: [...] is considered below average based on the [employer] risk calculation for surgery. [...] by mouth. ergocalciferol (Vitamin D2) 1.25 MG (78494 UT) capsule Take 1 capsule (1.25 mg) [...] prior to signing but minor errors in lean process deployment consultant may have occurred. documented in this encounter [facility] 04-28-2023 History of Presen t illness Narrative Images from the original note were not included. [facility] [address] [place] [address] [address] [facility] [address] Dept: [phone] Dept Loc: [phone] Visit type: Established Patient Reason for Visit: [...] is considered below average based on the [employer] risk calculation for surgery. However due to the climbing A1c is now 8.6 I will make a recommendation to the surgeon that he should hold off surgery as a possibility of poor wound healing at this point time to his sugars better controlled. -continues to follow up with [facility], Follow up if symptoms worsen or [...] by mouth. ergocalciferol (Vitamin D2) 1.25 MG (72377 UT) capsule Take 1 capsule (1.25 mg) [...] prior to signing but minor errors in lean process deployment consultant may have occurred. documented in this encounter [facility] 04-28-2023 Note Addended by: LESLYE MOLINA on: 04/29/2023 07:52 AM Modules accepted: Level of Service [facility] 04-21-2023 Note Pt cancelled appt [facility] Dr Rai. Will check with pt on referrals [facility] 04-08-2023 Note Spoke with Ruben mitchell [facility] [place]. I let her know Alexis No Showed for appointment 04/03/2023 for Medical Clearance. Pt will need to reschedule. Dr aRi will be out of office. Pt can also do a appointment with our PA Leslye Molina. [facility] 04-08-2023 Telephone encounter Note Spoke with Ruben from [facility] [place]. I let her know Alexis No Showed for appointment 04/03/2023 for Medical Clearance. Pt will need to reschedule. Dr Rai will be out of office. Pt can also do a appointment with our PA Leslye Molina. [facility] 04-08-2023 Miscellaneous Notes Spoke with Rbuen from [facility] [place]. I let her know Alexis No Showed for appointment 04/03/2023 for Medical Clearance. Pt will need to reschedule. Dr Rai will be out of office. Pt can also do a appointment with our PA Leslye Molina. 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 [place] Provider: Cecelia Practice: [facility] Chief Complaint/Reason for Call: Ruben called [...] [facility] Contact phone number: [phone] Relationship to Patient: [facility] Provider: Dr Rai Practice: [facility] location Chief Complaint/Reason for Call: 03/18/23 [...] their call: Yes documented in this encounter [facility] 04-08-2023 Telephone encounter Note Name of caller: Ruben Contact phone number: [phone] 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 Advised her that the patient does not have an appointment, she said that they may have to cancel his surgery. Best time of day caller can be reached: any Patient advised that office/PCP has 24-48 business hours to return their call: No [facility] 04-02-[address] Rai. Pt has an appt with you tomorrow. One for GI and one for ophthalmology. Wondering if pt still wants the referrals open. Please advise and send back to me. Thank you for your help. Yisel POD coordinator [facility] 03-18-2023 Note Called [facility] put pap ers on Dr Rai desk. They wants labs did not say which kind ? They want patient to have a face to face medical clearance. [facility] 03-18-2023 Telephone encounter Note Called [facility] put papers on Dr Rai desk. They wants labs did not say which kind ? They want patient to have a face to face medical clearance. [facility] 03-18-2023 Telephone encounter Note Name of caller: [facility] Contact phone number: [phone] Relationship to Patient: [facility] Provider: Dr Rai Practice: [facility] location Chief Complaint/Reason for Call: 03/18/23 [facility] calling to ask if the office /provider have received a Fax from [facility] for MEDICAL CLEARANCE needed prior to pt outpatient procedure pls advise call if needed Best time of day caller can be reached: PM Patient advised that office/PCP has 24-48 business hours to return their call: Yes [facility] 03-02-2023 Telephone encounter Note ordered [facility] 03-02-2023 Miscellaneous Notes ordered Pt says [...] mention he needed a referral to an orthopedic/manager switch? documented in this encounter [facility] 02-27-2023 Note Does he need a refer ral to someone specific? I believe he has been seeing someone [facility] 02-27-2023 Note When patient was denise cking out he said he forgot to mention he needed a referral to an orthopedic/manager switch? [facility] 02-27-2023 Telephone encounter Note Pt says you referred him to Dr Pitts previously but it takes too long to get in. Thinking if their is someone in [facility] he would like to go their. [facility] 02-27-2023 Telephone encounter Note Does he need a referral to someone specific? I believe he has been seeing someone [facility] 02-27-2023 Telephone encounter Note When patient was checking out he said he forgot to mention he needed a referral to an orthopedic/manager switch? [facility] 02-27-2023 History of Presen t illness Narrative Images from the original note were not included. [facility] [address] [facility] [address] Visit type: Established Patient Reason for [...] by mouth. ergocalciferol (Vitamin D2) 1.25 MG (77790 UT) capsule Take 1 capsule (1.25 mg) [...] 03/04/2023 5:04 PM documented in this encounter [facility] 01-05-2023 Note Addended by: VICENTA RAI on: 01/13/2023 02:13 PM Modules accepted: Level of Service [facility] 01-05-2023 History of Presen t illness Narrative Images from the original note were not included. [facility] [address] [place] [address] Post-Discharge Hospital Follow Up Date of Hospital Admission: 12/11/22 Date of Hospital Discharge: 12/14/22 Readmission Risk Score: Predictive Model Details 2% Factor Value Risk of Hospital Admission or ED Visit Model Is in Relationship Yes Has Diabetes Yes Has Chronic Liver Disease Yes Has PCP Yes ASSESSMENT/PLAN 1. Deformity of left foot - [facility] Foot/Ankle Lower Extremities - Ro 2. Ulcer of left foot with other severity ([facility]) - [facility] Orthopedics Foot/Ankle Lower Extremities - Ro 3. Type 2 diabetes mellitus with hyperglycemia, without long-term current use of insulin ([facility]/HCC) (HCC) Chronic, well controlled on current medications. [...] , Rfl: ergocalciferol (Vitamin D2) 1.25 MG (35571 UT) capsule, Take 1 capsule (1.25 mg) [...] Judgment: Judgment normal. documented in this encounter [facility] 01-05-2023 Miscellaneous Notes Addended by: VICENTA RAI on: 01/13/2023 02:13 PM Modules accepted: Level of Service documented in this encounter [facility] 01-05-2023 Note Addended by: VICENTA RAI on: 01/13/2023 02:13 PM Modules accepted: Level of Service [facility] 12-23-2022 Telephone encounter Note Last OV:09/05/22 Scheduled: 01/05/23 [facility] 12-23-2022 Miscellaneous Notes Last OV:09/05/22 Scheduled: 01/05/23 documented in this encounter [facility] 12-23-2022 Telephone encounter Note Patient aware [facility] 12-23-2022 Miscellaneous Notes Patient aware 2PM on jan 05 - this will be a double book yellow slot He is doing well. [facility]. ( Wound Center ) Patient was discharged 12/12/2022. When was he discharged? Where was he admitted? I don't see any documentation of an admission? We will schedule him next week once I Have more information Name of caller: Alexis Contact phone number: [phone] Relationship to Patient: patient Provider: Dr. Ashley Practice: [place] Chief Complaint/Reason for Call: Please assist with scheduling a JAYE appt, the pt was discharge 8/ Best time of day caller can be reached: any Patient advised that office/PCP has 24-48 business hours to return their call: N/A documented in this encounter [facility] 12-23-2022 Telephone encounter Note 2PM on jan 05 - this will be a double book yellow slot [facility] 12-19-2022 Telephone encounter Note He is doing well. [facility] 12-19-2022 Telephone encounter Note [facility]. ( Wound Center ) Patient was discharged 12/12/2022. [facility] 12-19-2022 Telephone encounter Note When was he discharged? Where was he admitted? I don't see any documentation of an admission? We will schedule him next week once I Have more information [facility] 12-18-2022 Telephone encounter Note Name of caller: Alexis Contact phone number: [phone] Relationship to Patient: patient Provider: Dr. Ashley Practice: [place] Chief Complaint/Reason for Call: Please assist with scheduling a JAYE appt, the pt was discharge 8/ Best time of day caller can be reached: any Patient advised that office/PCP has 24-48 business hours to return their call: N/A [facility] 12-08-2022 Telephone encounter Note Noted [facility] 12-08-2022 Miscellaneous Notes Noted S: the patient is calling the [facility] about a fever B: yesterday A: [...] Patient wants to be seen Protocols used: [id number] documented in this encounter [facility] 12-08-2022 Telephone encounter Note S: the patient is calling the [facility] about a fever B: yesterday A: [...] Patient wants to be seen Protocols used: [id number] [facility] 09-05-2022 Note Faxed referral, demo and summary of care to [facility] as requested [facility] 06-28-2020 Note Patient Outreach ([place] VAMN) ZIYADALEXIS ([id number]) 1975 M Date Time Provider Department 06/28/20 [facility] During your visit today, we recorded the following information about you: Allergies As of Date: 06/28/2020 Noted Allergy Reaction AUGMENTIN (AMOXICILLIN-POT CLAVUL*06/16/2006 4 - Hives PENICILLINS 07/07/2016 4 - Hives Date Reviewed: 06/09/2019 Reviewed by: Jani Welsh MA - Fully Assessed Order(s):SARS-COVID VACCINE 1ST DOSE APPT [[id number]] Order #: [id number] FUTURE Prescriptions as of 06/28/2020 Sig: FREESTYLE [...] Encounter Status:Closed by WINIFRED ALFARO on 07/02/20 [facility] Diagnosis Deformity of left foot- Primary Ulcer of left foot with other severity (HCC) documented in this encounter [facility]* Diagnosis Benign essential HTN- Primary documented in this encounter [facility]* Diagnosis Type 2 diabetes mellitus with hyperglycemia, without long-term current use of insulin (HCC)- Primary Pre-op evaluation Diabetic ulcer of left midfoot associated with type 2 diabetes mellitus, unspecified ulcer stage (HCC) documented in this encounter [facility]* Diagnosis Type 2 diabetes mellitus with hyperglycemia, without long-term current use of insulin (HCC)- Primary Pre-op evaluation Diabetic ulcer of left midfoot associated with type 2 diabetes mellitus, unspecified ulcer stage (HCC) [facility] Consultation (Routine) - Authorized Specialty Diagnoses / Procedures Referred By Casey t Referred To Contact Orthopedic Surgery Diagnoses Deformity of left foot Ulcer of left foot with other severity (HCC) Vicenta Rai, DO [address] [place] [address] [facility] [address] [place] [address] Referral ID Status Reason Start Date Expiration Date Visits Requested Visits Authorized [id number] Authorized Specialty Services Required 01/05/2023 01/05/2024 1 [facility]arrative[facility] Consultation (Routine) - Pending Review Specialty Diagnoses / Procedures Referred By Contac t Referred To Contact Orthopedic Surgery Diagnoses Deformity of left foot Ulcer of left foot with other severity (HCC) Vicenta Rai DO [address] [place] [address] Referral ID Status Reason Start Date Expiration Date Visits Requested Visits Authorized [id number] Pending Review Specialty Services Required 3 03/01/2024 1 1 Scheduling Instructions [facility] per patient's request [facility] Summary Purpose Family History No Family History Records FoundNo Family History Records Found Advance Directives No Advanced Directives Records FoundNo Advanced Directives Records Found Reason for Referral Specialty Diagnoses / Procedures Referred By Casey t Referred To Contact Diagnoses Type 2 diabetes mellitus with hyperglycemia, without long-term current use of insulin (HCC) Leslye Molina PA-C [address] [place] [address] Referral ID Status Reason Start Date Expiration Date V isits Requested Visits Authorized [id number] Pending Review 1 1 Additional Source Comments (unrecognized sect ion and content) No Status Records FoundNo Status Records Found INFORMATION SOURCE (unrecogn ized section and content) DATE CREATED AUTHOR AUTHOR'S ORGANIZ ATION 05/19/2023 [facility] Reason for Visit (unrecogniz [...] Comments Foot Pain Left foot surgeries clearance Reason Onset Date Comments Error (VOID this visit) 05/12/2023 Reason Onset Date Comments Change of transcare appt request 05/18/2023 Care Teams (unrecognized sec tion and content) Paratransit Driver Relationship Specialty Start Date End Date Vicenta Rai DO [address] [place] [id number] PCP - General 09/29/18 Paratransit Driver Relationship Specialty Start Date End Date Vicenta Rai DO [address] [place] [id number] PCP - General 09/29/18 Paratransit Driver Relationship Specialty Start Date End Date Vicenta Rai DO [address] [place] [address] [id number] PCP - General 09/29/18 Paratransit Driver Relationship Specialty Start Date End Date Vicenta Rai DO [address] [place] [address] [id number] PCP - General 09/29/18 Paratransit Driver Relationship Specialty Start Date End Date Vicenta Rai DO [address] [place] [address] [id number] PCP - General 09/29/18 Paratransit Driver Relationship Specialty Start Date End Date Vicenta Rai DO [address] [place] [address] [id number] PCP - General 09/29/18 Paratransit Driver Relationship Specialty Start Date End Date Vicenta Rai DO [address] [place] [address] [id number] PCP - General 09/29/18 Paratransit Driver Relationship Specialty Start Date End Date Vicenta Rai DO [address] [place] [address] [id number] PCP - General 09/29/18 Paratransit Driver Relationship Specialty Start Date End Date Vicenta Rai DO [address] [place] [id number] PCP - General 09/29/18 FOR RECORDS PERTAINING [...] BE BASED ON THE PRIMARY CLINICAL RECORDS. [facility] [employer] [facility]. provides no warranty or guarantee of the accuracy or completeness of information in this document.
== END | disposition home or self-care (01) ==
LOC: RAD 15:55
PROVIDERS: PCP Family Medicine; Referring Provider Podiatrist; Visit Provider Podiatrist
DX: M79.672 Pain in left foot (principal)
CPT/HCPCS: 73630

== ENCOUNTER 2023-06-02 09:00 | Outpatient (RCR) | payer OTHER, SELFPAY ==
[2023-05-21 00:57] VITALS: BP 159/82; PULSE 69; RESP 20; TEMP 36.2; BMI 30.2
[2023-05-26 09:16] VITALS: BP 159/79; PULSE 77; RESP 16; TEMP 35.4; BMI 30.2
--- NOTE | 2023-05-26 09:32 | PCM.WC.PN ---
History of Present Illness Date of Service: 05/26/23 Chief Complaint: Follow-up DFU L lateral foot History of Wound: 47-year-old male with chronic left diabetic foot ulceration in setting of Charcot foot status post plantar planing, tendo Achilles lengthening, bone biopsy and culture date of surgery was 05/07/2023. Bone cultures were positive. Patient is on PICC line and is receiving antibiotics per infectious disease. Patient denies constitutional symptoms. Patient has been nonweightbearing assisted by knee scooter to left lower extremity. No other complaints. Objective Data Objective Data Vital Signs: Vital Signs Temp Pulse Resp BP 95.8 F L 77 16 159/79 H 05/26/23 09:16 05/26/23 09:16 05/26/23 09:16 05/26/23 09:16 Weight: 115.747 kg Body Mass Index (BMI) 30.2 Physical Exam Narrative Neurovascular status unchanged. Patient has peripheral neuropathy with loss of protective and vibratory sensation. Patient has intact pulses. Some evidence of microvascular disease demonstrated by atrophic skin changes with skin thinning taut shiny appearance. Small partial-thickness wound 0.1 x 0.1 x 0.1 cm to plantar lateral left midfoot. No acute signs of infection. Lateral foot incision is well-approximated with intact sutures. No evidence of breakdown or infection. Small percutaneous incisions to posterior left ankle well-approximated with intact sutures no signs of infection to left. No evidence DVT bilaterally. Const alert and oriented x3 Debridement Note Debridement Note Post-Debridement Measurements and Additional Note: Post-Debridement Measurements/Treatment - Nurse 1 - General Ulcer Assessment Start: 05/26/23 09:16 Freq: Status: Active Protocol: MONI Activity Type Activity Date Activity User E-sign Co-sign Detail Recorded Client Recorded Date Recorded By Document 05/26/23 09:16 Laptop 05/26/23 09:17 05/26/23 09:16 - Today's Visit Information Type of service Follow-up Visit (Physician/COUNSELOR MANAGER ) Arrival Mode Walker Patient Identification Verified (Name & Yes ) Finger Stick Blood Sugar(mg/dl) (if 130 indicated): Blood Sugar Stated by Patient Height and Weight Body Mass Index (BMI) 30.2 BMI Classification Obese Vital Signs Temperature (97.8 F-99.1 F) 95.8 F L Temperature Source Temporal Pulse Rate (60-100) 77 Pulse Location Monitor Respiratory Rate (12-18) 16 Respiratory rate source Observation Blood Pressure (90/60-120/80) 159/79 H Blood Pressure Mean (mm Hg) 105 Source Monitor Position Sitting Blood Pressure Location Right Arm History Since Last Visit- (Skip if this is Patient's initial visit) Have you changed medications since your No last visit? Any new allergies or adverse reactions No Had a fall/change in ADL's that may No increase risk of falls Signs or symptoms of abuse and/or No neglect since last visit Have you been in the hospital since your No last visit? Has dressing in place as prescribed Yes Has compression in place as prescribed Yes Has offloadiing in place as prescribed Yes Experienced any changes in pain level or No management Left Footwear Total Contact Cast Right Footwear Regular Shoe Pain Scale: 0-10 Numeric Is Patient Pain Free? Yes - Nurse 1 - General Ulcer Measurement Start: 05/26/23 09:16 Freq: Status: Active Protocol: Activity Type Activity Date Activity User E-sign Co-sign Detail Recorded Client Recorded Date Recorded By Document 05/26/23 09:16 [employer] Laptop 05/26/23 09:17 05/26/23 09:16 Wound Center Nurse 1 #5 L Achilles -Combined with other wound No -Current Size (cm) - Length 0.1 -Current Size (cm) - Width 0.1 -Current Size (cm) - Depth 0.1 -Total Square Cm 0.01 -Photo Taken No -Epithelialization Large 67-100% -Tunneling No -Undermining/Tunneling No -Circular Undermining No #4 L Lat Plantar Foot -Combined with other wound No -Current Size (cm) - Length 0.1 -Current Size (cm) - Width 0.1 -Current Size (cm) - Depth 0.1 -Total Square Cm 0.01 Lower Limb Edema Present Yes - Nurse 2 - General Ulcer CM Notes Start: 05/26/23 09:16 Freq: Status: Active Protocol: Activity Type Activity Date Activity User E-sign Co-sign Detail Recorded Client Recorded Date Recorded By Document 05/26/23 09:23 [employer] Laptop 05/26/23 09:30 05/26/23 09:23 Wound Center Nurse 2 #5 L Achilles -Correct Patient No -Correct Side, Site, Position No -Correct Procedure No -Procedure Performed No -Post Debridement (cm) - Length 0.1 -Post Debridement (cm) - Width 0.1 -Post Debridement (cm) - Depth 0.1 -Total Square (Post) (cm) 0.01 -Area of Debridement (cm) - Length 0.1 -Area of Debridement (cm) - Width 0.1 -Total Square (Area) (cm) 0.01 -Wound/Ulcer Outcome Not Healed #4 L Lat Plantar Foot -Correct Patient No -Correct Side, Site, Position No -Correct Procedure No -Procedure Performed No -Post Debridement (cm) - Length 0.1 -Post Debridement (cm) - Width 0.1 -Post Debridement (cm) - Depth 0.1 -Total Square (Post) (cm) 0.01 -Area of Debridement (cm) - Length 0.1 -Area of Debridement (cm) - Width 0.1 -Total Square (Area) (cm) 0.01 Pain Scale: 0-10 Numeric Is Patient Pain Free? Yes Assessment/Plan Assessment/Plan (1) Short Achilles tendon (acquired), left ankle: CODE(S): M67.02 - Short Achilles tendon (acquired), left ankle PLAN: Exam performed Radiographs reviewed Left foot wound nearly healed today Left foot wound cleansed, redressed with antibiotic ointment DSD - daily dressing change (self care) Patient will continue IV antibiotics per infectious disease via PICC line. Patient on Zosyn until 06/18/2023. Bone cultures positive for Enterococcus faecalis, Pseudomonas aeruginosa, Will continue to follow closely continue nwb assisted by knee scooter Patient will follow-up in 1 week. (2) Osteomyelitis: CODE(S): M86.9 - Osteomyelitis, unspecified QUALIFIERS: Osteomyelitis type: unspecified type Osteomyelitis location: foot Laterality: left Qualified Code(s): M86.9 - Osteomyelitis, unspecified
[2023-06-02 08:56] VITALS: BP 144/76; PULSE 68; RESP 18; TEMP 35.5; BMI 30.2
--- NOTE | 2023-06-02 09:24 | PCM.WC.PN ---
History of Present Illness Date of Service: 06/02/23 Chief Complaint: Follow-up DFU L lateral foot History of Wound: 47-year-old male with chronic left diabetic foot ulceration in setting of Charcot foot status post plantar planing, tendo Achilles lengthening, bone biopsy and culture date of surgery was 05/07/2023. Bone cultures were positive. Patient is on PICC line and is receiving antibiotics per infectious disease. Patient denies constitutional symptoms. Patient has been nonweightbearing assisted by knee scooter to left lower extremity. No other complaints. Objective Data Objective Data Vital Signs: Vital Signs Temp Pulse Resp BP 96 F L 68 18 144/76 H 06/02/23 08:56 06/02/23 08:56 06/02/23 08:56 06/02/23 08:56 Weight: 115.747 kg Body Mass Index (BMI) 30.2 Physical Exam Narrative Neurovascular status unchanged. Patient has peripheral neuropathy with loss of protective and vibratory sensation. Patient has intact pulses. Some evidence of microvascular disease demonstrated by atrophic skin changes with skin thinning taut shiny appearance. Healed plantar lateral left midfoot. No acute signs of infection. Lateral foot incision is well-approximated with intact sutures. No evidence of breakdown or infection. Small percutaneous incisions to posterior left ankle well-approximated with intact sutures no signs of infection to left. No evidence DVT bilaterally. Const alert and oriented x3 Debridement Note Debridement Note Post-Debridement Measurements and Additional Note: Post-Debridement Measurements/Treatment - Nurse 1 - General Ulcer Assessment Start: 05/26/23 09:16 Freq: Status: Active Protocol: [email or web address] Activity Type Activity Date Activity User E-sign Co-sign Detail Recorded Client Recorded Date Recorded By Document 05/26/23 09:16 Laptop 05/26/23 09:17 Document 06/02/23 08:56 RB Desktop 06/02/23 08:58 RB 05/26/23 06/02/23 09:16 08:56 - Today's Visit Information Type of service Follow-up Visit Follow-up Visit (Physician/STAFF PHYSICIAN (Physician/STAFF PHYSICIAN ) ) Arrival Mode Walker Walker Transfer Assistance None Patient Identification Verified (Name & Yes Yes ) Finger Stick Blood Sugar(mg/dl) (if 130 indicated): Blood Sugar Stated by Patient Height and Weight Body Mass Index (BMI) 30.2 30.2 BMI Classification Obese Obese Vital Signs Temperature (97.8 F-99.1 F) 95.8 F L 96 F L Temperature Source Temporal Temporal Pulse Rate (60-100) 77 68 Pulse Location Monitor Monitor Respiratory Rate (12-18) 16 18 Respiratory rate source Observation Observation Blood Pressure (90/60-120/80) 159/79 H 144/76 H Blood Pressure Mean (mm Hg) 105 98 Source Monitor Monitor Position Sitting Semi-Fowlers Blood Pressure Location Right Arm Left Arm History Since Last Visit- (Skip if this is Patient's initial visit) Have you changed medications since your No No last visit? Any new allergies or adverse reactions No No Had a fall/change in ADL's that may No No increase risk of falls Signs or symptoms of abuse and/or No No neglect since last visit Have you been in the hospital since your No No last visit? Has dressing in place as prescribed Yes Yes Has compression in place as prescribed Yes No Has offloadiing in place as prescribed Yes Yes Experienced any changes in pain level or No No management Left Footwear Total Contact Cast Right Footwear Regular Shoe Pain Scale: 0-10 Numeric Is Patient Pain Free? Yes Yes WC - Nurse 1 - General Ulcer Measurement Start: 05/26/23 09:16 Freq: Status: Active Protocol: Activity Type Activity Date Activity User E-sign Co-sign Detail Recorded Client Recorded Date Recorded By Document 05/26/23 09:16 Laptop 05/26/23 09:17 Document 06/02/23 08:56 RB Desktop 06/02/23 08:58 RB 05/26/23 06/02/23 09:16 08:56 Wound Center Nurse 1 #5 L Achilles -Combined with other wound No No -Current Size (cm) - Length 0.1 0.1 -Current Size (cm) - Width 0.1 0.1 -Current Size (cm) - Depth 0.1 0.1 -Total Square Cm 0.01 0.01 -Photo Taken No -Epithelialization Large 67-100% -Tunneling No No -Undermining/Tunneling No No -Circular Undermining No No -Exudate Amt Medium -Exudate Type Serosanguineous -Wound Margin Distinct, Outline Attached -Granulation Amt Medium (34-66%) -Granulation Quality [place] -Slough/Fibrin Yes -Necrosis Amt Medium (34-66%) -Necrotic Tissue Type Adherent Slough -Structure Exposed N/A -Texture ([place]-wound Skin Appearance) Assessed -Moisture ([place]-wound Skin Appearance) Assessed -Color ([place]-wound Skin Appearance) Assessed -Temperature ([place]-wound Skin No Abnormality Appearance) (Pt Warm) -Tenderness on Palpation ([place]-wound No Skin Appearance) -Ulcer Cleansing Wound Cleanser -Foul Odor after Cleansing No -Anesthetic Used 5% Lidocaine Gel #4 L Lat Plantar Foot -Combined with other wound No No -Current Size (cm) - Length 0.1 0.1 -Current Size (cm) - Width 0.1 0.1 -Current Size (cm) - Depth 0.1 0.1 -Total Square Cm 0.01 0.01 -Tunneling No -Undermining/Tunneling No -Circular Undermining No -Exudate Amt Medium -Exudate Type Serosanguineous -Wound Margin Distinct, Outline Attached -Granulation Amt Medium (34-66%) -Granulation Quality [place] -Slough/Fibrin Yes -Necrosis Amt Medium (34-66%) -Necrotic Tissue Type Adherent Slough -Structure Exposed N/A -Texture ([place]-wound Skin Appearance) Assessed -Moisture ([place]-wound Skin Appearance) Assessed -Color ([place]-wound Skin Appearance) Assessed -Temperature ([place]-wound Skin No Abnormality Appearance) (Pt Warm) -Tenderness on Palpation ([place]-wound No Skin Appearance) -Ulcer Cleansing Wound Cleanser -Foul Odor after Cleansing No -Anesthetic Used 5% Lidocaine Gel Lower Limb Edema Present Yes WC - Nurse 2 - General Ulcer CM Notes Start: 05/26/23 09:16 Freq: Status: Active Protocol: Activity Type Activity Date Activity User E-sign Co-sign Detail Recorded Client Recorded Date Recorded By Document 05/26/23 09:23 JF Laptop 05/26/23 09:30 Document 06/02/23 09:16 Laptop 06/02/23 09:18 05/26/23 06/02/23 09:23 09:16 Wound Center Nurse 2 #5 L Achilles -Correct Patient No No -Correct Side, Site, Position No No -Correct Procedure No No -Procedure Performed No No -Post Debridement (cm) - Length 0.1 0 -Post Debridement (cm) - Width 0.1 0 -Post Debridement (cm) - Depth 0.1 0 -Total Square (Post) (cm) 0.01 0 -Area of Debridement (cm) - Length 0.1 0 -Area of Debridement (cm) - Width 0.1 0 -Total Square (Area) (cm) 0.01 0 -Wound/Ulcer Outcome Not Healed Healed- Epithelialized #4 L Lat Plantar Foot -Correct Patient No No -Correct Side, Site, Position No No -Correct Procedure No No -Procedure Performed No No -Post Debridement (cm) - Length 0.1 0 -Post Debridement (cm) - Width 0.1 0 -Post Debridement (cm) - Depth 0.1 0 -Total Square (Post) (cm) 0.01 0 -Area of Debridement (cm) - Length 0.1 0 -Area of Debridement (cm) - Width 0.1 0 -Total Square (Area) (cm) 0.01 0 -Wound/Ulcer Outcome Healed- Epithelialized Pain Scale: 0-10 Numeric Is Patient Pain Free? Yes Yes - Nurse 3 - General Ulcer D/C NN Start: 05/26/23 09:16 Freq: Status: Active Protocol: Activity Type Activity Date Activity User E-sign Co-sign Detail Recorded Client Recorded Date Recorded By Document 05/26/23 10:57 Desktop 05/26/23 10:59 RB Document 06/02/23 09:19 Laptop 06/02/23 09:19 05/26/23 06/02/23 10:57 09:19 Wound Care Center Nurse 3 #5 L Achilles -Other Dressing bacitracin ointment -Primary Dressing Covered/Secured with Dry Gauze,Dry Gauze & Roll Gauze,Secured with Tape #4 L Lat Plantar Foot -Other Dressing bacitracin -Primary Dressing Covered/Secured with Dry Gauze,Dry Gauze & Roll Gauze,Secured with Tape Left -Tubular Bandage Single Layer -Size of Tubigrip Used Size E -Size E ($) 1 Treatment Response Procedure Tolerated Well Pain Scale: 0-10 Numeric Is Patient Pain Free? Yes Yes - Visit Discharge Discharge Condition Stable Stable Ambulatory Status Ambulatory, Walker Walker Transportation Private Auto Private Auto Accompanied by mother Medication Reconcilliation completed & No Yes provided to patient/care provider Clinical Summary of Care Provided Yes Yes Notes: knee walker Assessment/Plan Assessment/Plan (1) Short Achilles tendon (acquired), left ankle: CODE(S): M67.02 - Short Achilles tendon (acquired), left ankle PLAN: Exam performed Left foot wound healed Continue nonweightbearing until receipt of custom diabetic shoes. Follow-up in outpatient setting at her private office. (2) Osteomyelitis: CODE(S): M86.9 - Osteomyelitis, unspecified QUALIFIERS: Osteomyelitis type: unspecified type Osteomyelitis location: foot Laterality: left Qualified Code(s): M86.9 - Osteomyelitis, unspecified
== END 2023-06-18 23:59 | disposition home or self-care (01) ==
LOC: WC 09:00
PROVIDERS: PCP Family Medicine; Referring Provider Podiatrist; Visit Provider Podiatrist
DX: M67.02 Short Achilles tendon (acquired), left ankle (principal); M86.9 Osteomyelitis, unspecified
CPT/HCPCS: 99213; G0463

== ENCOUNTER → 2023-08-11 | Outpatient (CLI) | payer OTHER, SELFPAY | END | disposition home or self-care (01) | PROVIDERS: PCP Nurse Practitioner; Visit Provider Nurse Practitioner | DX: L60.0 Ingrowing nail (principal); M79.89 Other specified soft tissue disorders; T14.8XXA Other injury of unspecified body region, initial encounter; L08.9 Local infection of the skin and subcutaneous tissue, unspecified | CPT/HCPCS: 87070; 87077; 87186; 87205 ==

== ENCOUNTER → 2023-08-13 | Outpatient (CLI) | payer OTHER, SELFPAY ==
--- NOTE | 2023-08-13 17:27 | RAD_ITS ---
STUDY: X-RAY RIGHT FOOT, FIRST TOE REASON FOR EXAM: Male, 47 years old. infected R great toe with odor TECHNIQUE: 3 view(s) of the toe were obtained. COMPARISON: None. FINDINGS: Normal visualized metatarsus. Normal metatarsophalangeal (M.T.P) joint. Normal interphalangeal joints. Normal phalanges and interphalangeal joints. Soft tissue swelling consistent with the cellulitis. No bony destruction to suggest osteomyelitis. RAD/Toe(s) Min 2 Views IMPRESSION: Suspect cellulitis but no radiographic evidence of osteomyelitis. Electronically Signed: Pedro Gonzalez MD at 21:55 EDT ,
== END | disposition home or self-care (01) ==
LOC: RAD 17:17
PROVIDERS: PCP Nurse Practitioner; Referring Provider Nurse Practitioner; Visit Provider Nurse Practitioner
DX: T14.8XXA Other injury of unspecified body region, initial encounter (principal); L08.9 Local infection of the skin and subcutaneous tissue, unspecified; R22.41 Localized swelling, mass and lump, right lower limb; L60.0 Ingrowing nail
CPT/HCPCS: 73660

== ENCOUNTER 2023-08-26 16:30 | Outpatient (RCR) | payer OTHER, SELFPAY ==
--- NOTE | 2023-07-01 18:06 | HP.PTEVAL_ITS ---
Patient's Visit Information Visit Information Visit Information: ALEXIS LACKEY is a 47 year old M referred to Physical Therapy by Dr. Isaac Lucero DPM with a diagnosis of ACHILLIS TENDONTIS. Date of Evaluation: 07/01/23 Physical Therapist: Low Harris, PT, Cert MDT, OCS Visit Plan Frequency: 2x /Week Duration: 4 Weeks Plan: PT INTERVENTIONS ROM/FLEXABILITY ANKLE ,STRENGTHENING EXERCISES ANKLE ,FUNCTIONAL STRENGTHENING AND PROPRIOCEPTION AND OKAY VASO FOR EDEMA Subjective Subjective: This 47 y/o male presents to physical therapy with s/p Tendo Achilles lengthening left lower extremity 6 excision plantar fifth metatarsal base for bone biopsy and culture left lower extremity done br Dr Lucero at [facility] in 05/07/23 . Patient was found to have infection in bone of foot thus was hospitalized for 5 days and had IV infusion at home until May. Patient had to see Wound clinic x 4 to check wound care. Patient had chronic left diabetic f oot ulceration in of Charcot foot for ~ 8 months and equinus deformity left . Patient was NWB for 5 weeks kneeling scooter and then progressed to WBAT ~ 3 weeks ago. Patient has pain with walking and edema . Patient has neuropathy in lower legs due to diabetes. Incision healed. Patient has difficulty with extended walking and, stairs. Condition affects QOL and function . Patient recently returned to work. Patient goals to walk better and normal function. 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 Pain Left Foot: Pain Intensity (Out of 10): 2 Pain Intensity Range: 10 Objective Objective: POSTURE:( frontal plane mechanics) pes cavus with over pronation NEURO: c/o paresthesia/tingling ,diminished light touch GAIT: ambulates with slight decrease stance LLE with step length right AROM: dorsiflexion -5 degrees ,plantar flexion 65 degrees ,eversion 5 degrees ,inversion 40 degrees EDEAM: 67cm trimalelor MMT: 4/5 ankle stabilizers PROPRIOCEPTION: poor unable to SLS Balance/Special Test Scores Lower Extremity Functional Score: 44 Goals Goal 1:: I with HEP for ankle /foot Goal Time Frame: 4-6 Weeks Goal 2:: Patient to normalize gait pattern Goal Time Frame: 4-6 Weeks Goal 3:: Patient to improve AROM BY 5 degrees dorsiflexion to improve gait cycle Goal Time Frame: 4-6 Weeks Goal 4:: Patient to improve demonstrate 50% improvement with improve function Goal Time Frame: 4-6 Weeks Goal 5:: Patient to improve LFES score by 5 points to improve QOL and function. Goal Time Frame: 4-6 Weeks Goal 6:: Patient to improve proprioception to walk on even surface with SLS ~ 30-45 sec LLE Rehabilitation Potential Physical Therapy Diagnosis: This patient underwent achilles tendon surgery lengthening and biopsy of bone found to have infection thus has impairments with weakness ,edema,poor proprioception impairs gait and function thus benefit from skilled PT Rehabilitation Potential: Good Anticipated Interventions Patient/Client Instruction: Educate patient on: Condition and Plan of Care For the Purpose of:: To decrease pain, To increase ROM, To improve muscle performance and motor function, To improve ability to perform ADL's, To increase tolerance to activity/condition/position, To improve ability of physical actions for home/community/work/leisure, To improve health of tissue, To decrease soft tissue restriction, To increase flexibility/ROM, To improve endurance, To improve balance, To reduce risk of recurrence and To improve tolerance to ADL's Therapeutic Exercise to Include: Strength training, Endurance training, Balance training, Postural training, Flexibilty training, Passive ROM and Active ROM Comment: STRENGTHENING ANKLE For the Purpose of:: To decrease pain, To increase ROM, To improve muscle performance and motor function, To improve ability to perform ADL's, To increase tolerance to activity/condition/position, To improve ability of physical actions for home/community/work/leisure, To improve gait and locomotor functions, To improve health of tissue, To decrease soft tissue restriction, To increase flexibility/ROM, To improve endurance, To improve balance, To reduce risk of recurrence and To improve tolerance to ADL's Vasopneumatic device: Yes For the Purpose of:: To decrease swelling/inflammation, To increase ROM, To improve health of tissue and To decrease soft tissue restriction Text: Thank you for the opportunity to evaluate your patient. For Medicare and Medicare HMO plans, please review the plan of care and approve it. It will need to be FAXED BACK to us at [phone] for Medicare purposes. For Medicare only, by signing this I certify the plan of care. Please let me know if there are questions or concerns regarding this plan of care. Physician Signature: Date:
--- NOTE | 2023-08-26 17:14 | HP.PTDCSUM ---
Discharge Summary D/C summary: It has been my pleasure to treat ALEXIS LACKEY referred by Dr. Isaac Lucero DPM, with the diagnosis of ACHILLIS TENDONTIS for a total of 15 visit(s). Discharge Date: Please see the following information for a summary of their discharge status. Subjective Subjective: Doing well . is Happy with progress Pain Left Foot: Pain Intensity (Out of 10): 0 Overall Improvement % Improvement: 40 Objective Objective/Function: POSTURE:( frontal plane mechanics) pes cavus with over pronation NEURO: c/o paresthesia/tingling ,diminished light touch GAIT: ambulates reciprocal pattern AROM: dorsiflexion 5 degrees ,plantar flexion 55 degrees ,eversion 5 degrees ,inversion 40degrees EDEMA: 67cm trimalelor MMT: 4/5 ankle stabilizers PROPRIOCEPTION: SLS < 5sec Goals Goal 1:: I with HEP for ankle /foot Goal Progress: Goal Met Goal 2:: Patient to normalize gait pattern Goal Progress: Goal Met Goal 3:: Patient to improve AROM BY 5 degrees dorsiflexion to improve gait cycle Goal Progress: Goal Met Goal 4:: Patient to improve demonstrate 50% improvement with improve function Goal Progress: Goal Met Goal 5:: Patient to improve LFES score by 5 points to improve QOL and function. Goal Progress: Goal Met Goal 6:: Patient to improve proprioception to walk on even surface with SLS ~ 30-45 sec LLE Goal Progress: Goal Met Plan Plan: D/C TO HEP D/C Information d/c sentence: If there are questions or concerns regarding this patient's physical therapy, please feel free to call me at [phone]. Thank you for the referral of this patient. Sincerely, Low Harris, PT, Cert MDT, OCS Balance/Gait/Functional tests Balance/Special Test Scores Lower Extremity Functional Score: 60 Improvement % Improvement: 40
== END 2023-08-26 19:00 | disposition home or self-care (01) ==
LOC: PT 16:30
PROVIDERS: PCP Family Medicine; Referring Provider Podiatrist; Visit Provider Podiatrist
DX: M76.62 Achilles tendinitis, left leg (principal)
CPT/HCPCS: 97110; 97162; 97530

== ENCOUNTER → 2023-08-27 | Outpatient (CLI) | payer OTHER, SELFPAY | END | disposition home or self-care (01) | PROVIDERS: PCP Nurse Practitioner; Referring Provider Podiatrist; Visit Provider Podiatrist | DX: L97.512 Non-pressure chronic ulcer of other part of right foot with fat layer exposed (principal) | CPT/HCPCS: 87070; 87075; 87077; 87186; 87205 ==

== ENCOUNTER 2023-08-31 20:58 | Emergency (ER) | payer OTHER, SELFPAY ==
[2023-08-31 20:59] VITALS: BP 159/90; PULSE 60; RESP 16; TEMP 36.1; O2SAT 97; BMI 29.6
[2023-08-31 22:59] VITALS: BP 115/64; PULSE 65; RESP 18; O2SAT 98
--- NOTE | 2023-08-31 23:33 | RAD_ITS ---
INDICATION: infection -- attn great toe EXAMINATION/TECHNIQUE: X-RAY - RIGHT XR Foot Min 3 Views COMPARISON: Right toes radiographs 08/13/2023. FINDINGS: 3 views of the right foot. BONES: Normal anatomic alignment without evidence of fracture or subluxation. No concerning bony lesion or abnormal sclerosis to suggest lesion. JOINTS: No significant degenerative change. SOFT TISSUES: Atherosclerotic vascular calcifications. Again noted soft tissue thickening off the fifth MTP joint. RAD/Foot min 3 Views IMPRESSION: No significant osseous abnormality of the right foot. Electronically Signed: Quintin Nguyen MD at 0:36 EDT ,
--- NOTE | 2023-08-31 23:36 | RAD_ITS ---
INDICATION: fever EXAMINATION/TECHNIQUE: X-RAY - XR Chest 2 Views COMPARISON: None. Findings: Frontal and lateral views of the chest. LUNG PARENCHYMA: No acute focal airspace disease or mass lesion. PLEURA: No pleural effusion. No pneumothorax. HEART/GREAT VESSELS: Cardiomediastinal silhouette is unremarkable. BONES: Osseous structures are unremarkable for age. RAD/Chest PA and Lateral IMPRESSION: Chest with no acute disease. Electronically Signed: Quintin Nguyen MD at 0:30 EDT ,
--- NOTE | 2023-08-31 23:36 | EX.ED.DYSGE1 ---
HPI History of Present Illness Chief Complaint: Cellulitis Informant: patient and spouse/S.O. Narrative Narrative: Patient is a diabetic with peripheral neuropathy that has had problems with his right great toe for the last month and a half or so. Following with Dr. Lucero with podiatry. Started with an ingrown toenail that seems to be infected, 2 and half weeks ago the ingrown toenail was removed on the tibial side, subsequently developed an infection after that and was on antibiotics, doxycycline finished yesterday, and has been having chills off and on worse today, called Dr. Lucero prescribed Zyvox which he just started today, but brought him in out of concern that this does not seem to be resolving and he had osteomyelitis in his contralateral foot and it looked okay too. Patient states he has had rare scant discharge from the wound. It is not hurting him and he feels okay right now. Denies any other symptoms such as cough, dysuria, dyspnea, headache, myalgias. In addition, significant other is concerned about intermittent rash she has been getting. They are small circular patches of redness seem to be on his legs only, seem to go away with antibiotics and come back at other times, patient states they are occasionally a little itchy but otherwise they are asymptomatic. They never drained anything. [facility] Medical History Arthritis Bone fracture Charcot's joint, left ankle and foot Diabetes Diabetes type 2, controlled 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 Diabetic neuropathy associated with diabetes mellitus due to underlying condition Elevated liver enzymes Fatty liver Foot abscess, left Former smoker frozen shoulder,r arm High cholesterol HTN (hypertension) Neuropathy Non-pressure chronic ulcer of other part of left foot with fat layer exposed Osteomyelitis of foot, left, acute Seasonal allergies Shortness of breath on exertion Type 2 diabetes mellitus with diabetic polyneuropathy Wears glasses Home Medications blood sugar diagnostic (OneTouch Verio test strips) #10 ea 02/11/19 [History Last Taken Unknown] blood-glucose meter (OneTouch Verio Meter) #1 ea 02/11/19 [History Last Taken Unknown] cholecalciferol (vitamin D3) 1,250 mcg (50,000 unit) capsule 50,000 unit PO QWEEK vitamin #12 caps 03/08/19 [Rx Last Taken 05/06/23] metoprolol succinate 50 mg tablet,extended release 24 hr 100 mg PO DAILY htn 03/08/19 [History Last Taken 05/07/23] amlodipine 5 mg tablet 10 mg PO DAILY htn 02/07/22 [History Last Taken 05/07/23] tamsulosin 0.4 mg capsule 0.4 mg PO Q24H md ordered 02/07/22 [History Last Taken 05/08/23] biotin 100 mcg PO DAILY daily vitamin 12/10/22 [History Last Taken 05/06/23] calcium citrate 500 mg PO DAILY daily vitamin 12/10/22 [History Last Taken 05/06/23] hlqmmpcm-cdqs-mhl-folic acid 18 mg-0.4 mg tablet (One Daily Complete) 1 tab PO DAILY vitamin 12/10/22 [History Last Taken 05/06/23] vit B12 50 mcg-iodine 75 mcg-mag 100 wm-dwkx-ytbvdcvj-herb 193 capsule 1 cap PO DAILY vitamin 12/10/22 [History Last Taken 05/06/23] zinc 50 mg tablet 50 mg PO DAILY vitamin 12/10/22 [History Last Taken 05/06/23] metformin 1,000 mg tablet 1,000 mg PO BID diabetes 30 days #60 tabs 12/12/22 [Rx Last Taken 05/06/23 09:00] ascorbic acid (vitamin C) 500 mg tablet,extended release (C Complex) 500 mg PO DAILY daily vitamin 05/01/23 [History Last Taken 05/06/23] tirzepatide 2.5 mg/0.5 mL subcutaneous pen injector (Mounjaro) 2.5 mg subcut QWEEK Diabetes 05/01/23 [History Last Taken 05/07/23] oxycodone 5 mg capsule 5 mg PO Q6H PRN pain 7 days #28 caps 05/07/23 [Rx Last Taken Unknown] hydrochlorothiazide 25 mg tablet 25 mg PO DAILY #30 tabs 05/12/23 [Rx Last Taken Unknown] lisinopril 40 mg tablet 40 mg PO DAILY #30 tabs 05/12/23 [Rx Last Taken Unknown] piperacillin-tazobactam 3.375 gram intravenous solution 3.375 g IV Q8H 37 days 05/12/23 [Rx Last Taken Unknown] ciprofloxacin HCl 500 mg tablet 500 mg PO BID #28 tabs 08/11/23 [Rx Last Taken Unknown] ciprofloxacin HCl 750 mg tablet 750 mg PO BID #20 tabs 08/28/23 [Rx Last Taken Unknown] doxycycline hyclate 100 mg capsule 100 mg PO BID #20 caps 08/28/23 [Rx Last Taken Unknown] Allergy/AdvReac Type Severity Reaction Status Date / Time amoxicillin [From Augmentin] Allergy Severe Rash Verified 08/31/23 20:59 clavulanic acid Allergy Severe Rash Verified 08/31/23 20:59 [From Augmentin] Penicillins Allergy Unknown Hives Verified 08/31/23 20:59 Family History Mother Asthma Hypertension Father Hypertension Grandmother Cancer Unknown Arthritis Diabetes Other Diverticulitis Family history of high cholesterol Glaucoma Heart disease Kidney disease Renal failure Surgical History H/O bariatric surgery History of liver biopsy Social History household members: family housing: house Smoking Status: Former smoker alcohol intake: never substance use type: does not use ROS ROS ED Constitutional Constitutional ED: Reports chills; Denies fever(s) ENT ENT ED: Denies rhinorrhea or sore throat Respiratory/Chest Respiratory/Chest: Denies cough or dyspnea Gastrointestinal Gastrointestinal: Denies abdominal pain Genitourinary Genitourinary ED: Denies dysuria Integumentary Reports as per HPI, rash and wounds EXAM Physical Exam Const Vital Signs: 08/31/23 20:59 08/31/23 23:56 08/31/23 22:59 Temperature 97 F L 97.9 F Temperature Source Temporal Oral Pulse Rate 60 57 L 65 Respiratory Rate 16 16 18 Blood Pressure 159/90 H 144/80 H 115/64 Blood Pressure Mean 113 101 81 Pulse Ox 97 98 98 Oxygen Delivery Method Room Air Room Air 09/01/23 00:00 09/01/23 01:00 Temperature 97.9 F 97.8 F Temperature Source Oral Temporal Pulse Rate 61 56 L Respiratory Rate 13 16 Blood Pressure 125/69 H 145/81 H Blood Pressure Mean 87 102 Pulse Ox 99 99 Oxygen Delivery Method Room Air Positive well nourished and well developed Constitutional Narrative: Well-appearing General Appearance ED: well developed and NAD Eyes PERRL and EOMs intact bilaterally Neck supple Resp normal respiratory effort Extremity Extremity Narrative: Superficial wound at the tibial aspect of the right great toe, just to the side of the nail, partial removal has been obtained into the root. There is no expressible discharge. There is no abscess. There is no erythema. There is some iodine-looking topical agent smeared around the area. There is no swelling or lymphangitis or tenderness but he has decreased sensation due to neuropathy. Neuro oriented x3 and CN's II-XII intact bilaterally Neuro Narrative: Decreased sensation both feet due to neuropathy otherwise no sensory deficits. Sensorium / Orientation: alert Motor Exam: strength 5/5 throughout Psych mental status grossly normal Skin Skin Narrative: See above for single wound on the dorsum of the right great toe. On the left lower leg there are about 3 small circular patches about a centimeter in diameter nontender nonraised, well-circumscribed. No bullae. Not ecchymotic or purpuric. No petechia. MDM MDM MDM Narrative Medical decision making narrative: performed a limited evaluation for osteomyelitis. He is scheduled for an MRI of the foot coming up here which I as I described will be a more sensitive and specific test. On my interpretation three-view x-ray series of the right foot is negative for acute osteomyelitis or other acute abnormality, I also did a 2 view chest x-ray given the possibility of subjective fevers, that is negative on my interpretation and his lungs are clear, urinalysis is negative, and his metabolic workup is extremely normal including his white blood count of 4.6, ESR at 6, and CRP less than 2.9. This is very reassuring and consistent with the lack of osteomyelitis at this time. Still, he is scheduled to get an MRI which is a more sensitive and specific test, I encouraged him to continue getting that. Since the wound looks really good right now I would encourage him to follow-up with podiatry but I do not think he needs to be admitted for further emergent evaluation, I would continue the Zyvox, take yogurt every day to prevent antibiotic associated diarrhea and C. difficile, and follow-up. The rash could be an allergic reaction to the antibiotics that he was recently on, it looks fairly limited, it is not petechial or purpuric and therefore I do not think this is indicative of bacteremia, DIC. Lab Data Attestation: I reviewed the patient's lab results. Labs: Laboratory Results - last 24 hr 08/31/23 09/01/23 23:45 00:30 WBC 4.6 RBC 4.56 L Hgb 13.8 Hct 38.2 L MCV 83.8 MCH 30.3 MCHC 36.1 H RDW Std Deviation 35.5 RDW Coeff of [place] 11.7 Plt Count 218 MPV 10.2 Immature Gran % (Auto) 0.200 Neut % (Auto) 54.3 Lymph % (Auto) 34.6 Becker % (Auto) 7.9 Eos % (Auto) 2.6 Baso % (Auto) 0.4 Absolute Neuts (auto) 2.5 Absolute Lymphs (auto) 1.58 Nucleated RBC % 0 ESR 6 Sodium 131 L Potassium 3.9 Chloride 99 Carbon Dioxide 26.0 Anion Gap 6 BUN 12 Creatinine 1.03 Estim Creat Clear Calc 122.59 Est GFR (MDRD) Af Amer 99 Est GFR (MDRD) Non-Af 82 BUN/Creatinine Ratio 11.7 Glucose 98 Lactic Acid 1.1 Calcium 9.2 C-React Prot Ext Range < 2.90 Urine Color Yellow Urine Clarity Clear Urine pH 6.5 Ur Specific [place] 1.005 Urine Protein Negative Urine Glucose (UA) Normal Urine Ketones Negative Urine Occult Blood Negative Urine Nitrite Negative Urine Bilirubin Negative Urine Urobilinogen Normal Ur Leukocyte Esterase Negative Urine RBC 0 SEEN Urine WBC 0 SEEN Ur Squamous Epith Cells 0 SEEN Urine Bacteria 0 SEEN Urine Mucus 0 SEEN Discharge Plan Triage Chief Complaint: Cellulitis ED Provider: Wallace Wong Dx/Rx/DC Orders Clinical Impression: Visit for wound check, Rash and other nonspecific skin eruption Instructions: ED Wound Check (No Infection) Prescriptions: No Action metoprolol succinate 50 mg tablet extended release 24 hr 100 mg PO DAILY cholecalciferol (vitamin D3) 50,000 unit capsule 50,000 unit PO QWEEK Qty: 12 3RF Patient Comments: every thursday (DME) OneTouch Verio test strips Strip See Rx Instructions .ROUTE .MEDSUPPLY Qty: 10 Rx Instructions: use to check BG 4 x qd (DME) blood-glucose meter [OneTouch Verio Meter] Misc See Rx Instructions .ROUTE .MEDSUPPLY Qty: 1 Rx Instructions: As directed amlodipine 5 mg tablet 10 mg PO DAILY Patient Comments: TAKE 1 TABLET BY MOUTHcONCE DAILY tamsulosin 0.4 mg capsule 0.4 mg PO Q24H Patient Comments: TAKE 1 CAPSULE BY MOUTHUONCE DAILY ciprofloxacin HCl 500 mg tablet 500 mg PO BID Qty: 28 0RF [id number] 50 mcg-75 mcg -100 mg capsule 1 cap PO DAILY biotin 100 mcg PO DAILY calcium citrate 250 mg calcium tablet 500 mg PO DAILY One Daily Complete 18-0.4 mg tablet 1 tab PO DAILY zinc 50 mg tablet 50 mg PO DAILY piperacillin-tazobactam 3.375 gram recon soln 3.375 g IV Q8H 37 Days Rx Instructions: stop date 06/18/23 dx: foot osteo weekly bmp, cbc, and esr. Fax to [phone] hydrochlorothiazide 25 mg Tablet 25 mg PO DAILY Qty: 30 2RF lisinopril 40 mg Tablet 40 mg PO DAILY Qty: 30 2RF metformin 1,000 mg tablet 1,000 mg PO BID 30 Days Qty: 60 0RF ascorbic acid (vitamin C) [C Complex] 500 mg tablet extended release 500 mg PO DAILY Mounjaro 2.5 mg/0.5 mL pen injector 2.5 mg subcut QWEEK oxycodone 5 mg capsule 5 mg PO Q6H PRN (Reason: pain) 7 Days Qty: 28 0RF doxycycline hyclate 100 mg capsule 100 mg PO BID Qty: 20 0RF ciprofloxacin HCl 750 mg tablet 750 mg PO BID Qty: 20 0RF Primary Care Provider: SCOTT FREED Referrals: SCOTT FREED DO [Primary Care Provider] - Isaac Lucero DPM [Med Staff - Active Staff] - As soon as possible Disposition Disposition: Home, Self Care
[2023-08-31 23:56] VITALS: BP 144/80; PULSE 57; RESP 16; TEMP 36.6; O2SAT 98
[2023-09-01] VITALS: BP 125/69; PULSE 61; RESP 13; TEMP 36.6; O2SAT 99
[2023-09-01 00:36] LABS: Bacteria 0 SEEN /hpf (None Seen); Mucous, Urine 0 SEEN /hpf (<or=2+); Red Blood Cells-Urine 0 SEEN /hpf (0-5); Squamous Epithelial Cells - UA 0 SEEN /hpf (0-5); White Blood Cells 0 SEEN /hpf (0-5)
[2023-09-01 00:37] LABS: Erythrocyte Sedimentation Rate 6 mm/hr (0-20)
[2023-09-01 00:40] LABS: Color, Urine Yellow (Yellow); Glucose, Dipstick Normal (Normal); Ketone-Dipstick Negative (Negative); Leukocyte Esterase-Dipstick Negative /ul (Negative); Nitrite-Dipstick Negative (Negative); Occult Blood-Urine Negative /ul (Negative); Protein-Dipstick Negative (Negative); Specific Gravity, Urine 1.005 (1.002-1.030); Urine Bilirubin Dipstick Negative (Negative); Urine Clarity Clear (Clear); Urine Urobilinogen Normal (Normal); Urine pH 6.5 (5.0 - 8.0)
[2023-09-01 00:41] LABS: Absolute Lymphocyte Count 1.58 X10^3/uL (0.83-4.51); Absolute Neutrophil Count 2.5 X10^3/uL (2.0-7.7); Basophil# 0.02 X10^3/uL; Basophil% 0.4 % (0-1); Eosinophil# 0.12 X10^3/uL; Eosinophils% 2.6 % (0-5); Hematocrit 38.2 % (40-54); Hemoglobin 13.8 g/dL (13.0-16.5); Lymphocyte # 1.58 X10^3/ul (0.83-4.51); Lymphocyte % 34.6 % (19-41); Mean Corp Hgb Conc 36.1 g/dL (32-36); Mean Corpuscular Hgb 30.3 pg (27.0-32.0); Mean Corpuscular Volume 83.8 fL (80-94); Mean Platelet Vol. 10.2 fl (6.2-12.0); Monocyte# 0.36 X10^3/uL; Monocyte% 7.9 % (0-10); NRBC Flagged by Analyzer 0 % (0-5); Neutrophil # 2.47 X10^3/uL (2.7-7.7); Neutrophil % 54.3 % (47-70); Platelet Count 218 K/mm3 (150-450); RBC Distribution Width CV 11.7 % (11.6-14.6); RBC Distribution Width SD 35.5 fl (35.1-43.9); Red Blood Count 4.56 M/mm3 (4.6-6.2); White Blood Count 4.6 K/mm3 (4.4-11.0)
[2023-09-01 01:00] VITALS: BP 145/81; PULSE 56; RESP 16; TEMP 36.6; O2SAT 99
[2023-09-01 01:01] LABS: Anion Gap 6 (5-15); BUN 12 mg/dL (7-18); BUN/Creat Ratio 11.7 RATIO (10-20); CRP < 2.90 mg/L (0.0-3.0); Calcium,Total 9.2 mg/dL (8.5-10.1); Chloride 99 mmol/L (98-107); Creatinine, Serum 1.03 mg/dL (0.70-1.30); EST Glomerular Filtration Rate 82 mL/min (>60); Est Glom Filt Rate - Afr Amer 99 mL/min (>60); Estimated Creatinine Clearance 122.59 ml/min; Glucose 98 mg/dL (74-106); Lactic Acid 1.1 mmol/L (0.4-1.9); Potassium 3.9 mmol/L (3.5-5.1); Sodium Level 131 mmol/L (136-145)
[2023-09-01 01:35] VITALS: BP 147/86; PULSE 57; RESP 16; TEMP 36.8; O2SAT 99
== END 2023-09-01 01:35 | disposition home or self-care (01) ==
PROVIDERS: Emergency Provider Emergency Medicine; PCP Family Medicine; Visit Provider Emergency Medicine
DX: Z48.00 Encounter for change or removal of nonsurgical wound dressing (principal); E11.42 Type 2 diabetes mellitus with diabetic polyneuropathy; R21 Rash and other nonspecific skin eruption; Z87.891 Personal history of nicotine dependence; Z51.89 Encounter for other specified aftercare; I10 Essential (primary) hypertension; E78.00 Pure hypercholesterolemia, unspecified
CPT/HCPCS: 71046; 73630; 80048; 81001; 83605; 85025; 85652; 86140; 87040; 99282; A4216

== ENCOUNTER → 2023-09-08 | Outpatient (CLI) | payer OTHER, SELFPAY ==
--- NOTE | 2023-09-08 12:36 | MRI_ITS ---
STUDY: MRI RIGHT FOREFOOT WITHOUT CONTRAST REASON FOR EXAM: Male, 47 years old. Osteomyelitis. TECHNIQUE: Standardized fat and water weighted pulse sequences were obtained in all 3 orthogonal planes. COMPARISON: Right foot radiographs dated 09/01/2023. FINDINGS: There is increased STIR marrow signal throughout the distal phalanx of the great toe (sagittal STIR series 5 images 6-11), with preservation of the normal T1 marrow signal (sagittal T1 series 4 images 6-10), compatible with marrow stress edema versus very early developing osteomyelitis. Normal bone marrow of the remainder of the phalanges, metatarsals, and visualized distal tarsal row, without fracture, periostitis, erosions or reactive bone edema. Normal sesamoids without sesamoiditis, fracture or avascular necrosis. Normal joint spaces, without effusions. There are no extraarticular fluid collections. Normal visualized Lisfranc joints and normal Lisfranc ligament. Normal intermetatarsal spaces without intermetatarsal (Floyd) neuroma or bursitis. Normal visualized extensor digitorum longus, extensor hallucis longus, flexor digitorum brevis and flexor hallucis longus tendons. Normal visualized plantar fascia without fasciitis, fibromatosis or tear. There is mild generalized edema of the intrinsic muscles of the foot. There is a small fluid pocket in the subcutaneous fat plantar to the fifth metatarsal head (sagittal STIR series 5 images 26-29), likely related to pressure related cystic adventitial bursitis. There is mild subcutaneous soft tissue edema along the dorsum of the foot. MRI/Lower Ext/No Jt/w/o IMPRESSION: Increased STIR marrow signal throughout the distal phalanx of the great toe, with preservation of the normal T1 marrow signal, compatible with marrow stress edema versus very early developing osteomyelitis. Mild generalized edema of the intrinsic muscles of the foot. Small fluid pocket in the subcutaneous fat plantar to the fifth metatarsal head, likely related to pressure related cystic adventitial bursitis. Mild subcutaneous soft tissue edema along the dorsum of the foot. Electronically Signed: Jeremias Mendez MD at 15:39 EDT ,
== END | disposition home or self-care (01) ==
LOC: MRI 12:33
PROVIDERS: PCP Family Medicine; Referring Provider Podiatrist; Visit Provider Podiatrist
DX: M86.171 Other acute osteomyelitis, right ankle and foot (principal)
CPT/HCPCS: 73718

== ENCOUNTER 2023-11-05 09:30 | Day surgery (SDC) | payer OTHER, SELFPAY ==
[2023-11-05] VITALS (9 sets, daily range): BP systolic 108–132; BP diastolic 63–75; PULSE 46–50; RESP 14–16; TEMP 36.1–36.6; O2SAT 88–99; BMI 28.7
--- NOTE | 2023-11-05 | BON_PTH ---
PATIENT: ALEXIS LACKEY LOC: [facility] [place] U#:[id number] AGE/SX: 47/M ROOM: RE11/05/[address]: Dr. Isaac Lucero DPM : 1975 BED: DIS: 11/05/2023 SPEC #: [id number] RECD: 11/05/23 13:16 STATUS: LEAH REYaya #: [id number] SMILEY: 11/05/23 00:[address]: Isaac Lucero DEPT: SURGICAL PATHOLOGY RECD BY: Nathan Weathers ENTERED: 11/05/23 13:17 SP TYPE: Bone OTHR DR: SCOTT FREED DO Tissues: Bone of foot, NOS Procedures: Decalcification bone/plaque Surgery Specimen Level III HEADER OPERATION: Right hallux interphalangeal joint arthroplasty PRE-OP DIAGNOSIS: Osteomyelitis right hallux TISSUE SUBMITTED: Distal phalanx right hallux MICROSCOPIC DIAGNOSIS Distal phalanx right hallux bone, excision: Pieces of bone with reactive changes and minimal chronic inflammation, negative of acute osteomyelitis. / 11/11/2023 MICROSCOPIC DESCRIPTION Slides are reviewed. GROSS DESCRIPTION Received in fixative is one container labeled with the patient's name and designated Distal phalanx right hallux. The specimen consists of multiple fragments of bone measuring in aggregate 2.5 x 1.5 x 0.5cm. The entire specimen is submitted in one cassette after decalcification. / 11/05/2023 TC:5 CPT:68817,32696
[2023-11-05] MEDS: BACITRACIN/POLYMYXIN B 15 GM Tube 1 APPLIC (09:22)
[2023-11-05] MEDS: Lactated Ringers 1,000 ML 15 ML IV (09:59)
--- NOTE | 2023-11-05 10:00 | RAD_ITS ---
STUDY: X-RAY RIGHT FOOT, FIRST TOE REASON FOR EXAM: Male, 47 years old. RT HALLUX INTERPHALANGEAL JOINT ARTHROPLASTY TECHNIQUE: 2 view(s) of the toe were obtained. COMPARISON: 09/01/2023 FINDINGS: 50 seconds of fluoroscopy the first digit was utilized after during surgery and T2 images is made of interpretation. . RAD/Toe(s) Min 2 Views IMPRESSION: Fluoroscopy during first toe surgery. Electronically Signed: Pedro Gonzalez MD at 12:26 EDT ,
[2023-11-05 10:22] LABS: Bedside Glucose 134 mg/dL (74-106)
--- NOTE | 2023-11-05 10:30 | PRE.ANES_ITS ---
ASA Classification* ASA Classification ASA Classification: 2 Assessment & Plan Anesthesia* Anesthesia Assessment Anesthesia Assessment: Discussed sedation and/or anesthesia options, risks, benefits, and alternatives with patient/parents/legal guardian/POA. Questions invited. The patient/parents/legal guardian/POA seems to understand and agrees to proceed with anesthesia plan. Reviewed the physical assessment, medical history, allergy history and patient home medications list prior to surgery/procedure/anesthetic and documented any changes. Performed airway and anesthesia risk assessments. Anesthesia Type Anesthesia Type: General (see pre anesthesia written record for full assessment) Anesthesia Focused Assessment* Temperature: 97 F Pulse Rate: 50 Blood Pressure: 132/75 Respiratory Rate: 16 Pulse Ox: 99 Airway Assessment Mouth opens: >3 cm Mallampati Score: II Focused Labs Anesthesia Preop lab: CBC WBC 4.6 K/mm3 (4.4-11.0) 08/31/23 23:45 RBC 4.56 M/mm3 (4.6-6.2) L 08/31/23 23:45 Hgb 13.8 g/dL (13.0-16.5) 08/31/23 23:45 Hct 38.2 % (40-54) L 08/31/23 23:45 Plt Count 218 K/mm3 (150-450) 08/31/23 23:45 CHEMISTRY Potassium 3.9 mmol/L (3.5-5.1) 08/31/23 23:45 Sodium 131 mmol/L (136-145) L 08/31/23 23:45 Magnesium 1.6 mg/dL (1.6-2.6) 05/10/23 05:20 Phosphorus 3.8 mg/dL (2.5-4.9) 05/10/23 05:20 BUN 12 mg/dL (7-18) 08/31/23 23:45 Creatinine 1.03 mg/dL (0.70-1.30) 08/31/23 23:45 Glucose 98 mg/dL (74-106) 08/31/23 23:45 POC Glucose 134 mg/dL (74-106) H 11/05/23 09:52 TSH 1.97 uIU/mL (0.358-3.74) 01/04/22 10:45 COAG Pre-Assessment Diagnosis/Proposed Procedure Planned Operative Procedure(s): Right hallux interphalangeal joint arthroplasty Anesthesia History Anesthesia History - [employer]: Anesthesia History - [employer] Hx Hospitalization Yes: 12/11/22 BONE INFECTION 11/03/23 13:26 FOOT-IV ANTIBIOTICS Any Problems With Anesthesia No 11/03/23 13:26 Cholinesterase deficiency No 11/03/23 13:26 You/Your Family Experience No 11/03/23 13:26 fever (hyperthermia) with Relationship Recent Exposure to Contagious No 11/05/23 09:50 Disease Does patient have nerve No 11/03/23 13:26 stimulator Patient instructed to have device shut off --Does patient have Pacemaker No 11/05/23 09:50 or ICD? When Was Last Pacemaker Check QUESTION #4 FULL TEXT: You/Your Family Experience fever (hyperthermia) with Anesthesia Last Oral Intake Last Oral intake: Last Oral Intake NPO since 08:00 11/05/23 09:50 Meds taken in AM with sips of Yes 11/05/23 09:50 water? Meds patient instructed to see mar 11/05/23 09:50 take am of surgery PONV PONV - [employer]: PONV - [employer] Female No 11/03/23 13:26 HX of Motion Sickness No 11/03/23 13:26 HX of N/V After Surgery No 11/03/23 13:26 Non-Smoker Yes 11/03/23 13:26 Duration of Surgery greater Yes 11/03/23 13:26 than 60 minutes Number of Risk Factors 2 11/03/23 13:26 PONV Score Moderate Risk 11/03/23 13:26 Height & Weight Height & Weight: Anesthesia: Height & Weight Height 6 ft 5 in 11/05/23 09:50 Weight: 109.769 kg 11/05/23 09:50 Body Mass Index (BMI) 28.7 11/05/23 09:50 Respiratory Assessment Respiratory Assessment - [employer]: Respiratory Tract Infection Hx - [employer] Hx Respiratory Tract Infection No 11/03/23 13:26 STOP Sleep Apnea STOP Sleep Apnea - [employer]: STOP Sleep Apnea - [employer] Hx Hypertension Yes: CONTROLLED ON MEDS 11/03/23 13:26 Hx Sleep Apnea No 11/03/23 13:26 CPAP BIPAP Do you snore loudly (louder No 11/03/23 13:26 than talking or can be heard Do you often feel tired/ No 11/03/23 13:26 fatigued/ sleepy during daytime? Has anyone observed you stop No 11/03/23 13:26 breathing during sleep? STOP Results Negative 11/03/23 13:26 QUESTION #5 FULL TEXT : Do you snore loudly (louder than talking or can be heard through closed doors)? 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 Specify any problems Hx of Preganancy in last 3 N/A 11/03/23 13:26 Months Nurse Filling Out Transfusion VCHRISTIN 11/03/23 13:26 & Questions: Date: 11/03/23 11/03/23 13:26 Time: 13:27 11/03/23 13:26 Patient unable to answer at this time (ie. confused, unrespo /Reproduction History /Reproductive History - [employer]: /Reproductive Hx- [employer] Hx Now Gestational Age (in weeks): EDC: Hx Hx Para Hx Section SAB Active Medications Active Medications: Current Medications Generic Name Dose Route Start Last Admin Trade Name Freq PRN Reason Stop Dose Admin Clindamycin Phosphate 900 mg in 50 mls @ 75 mls/hr 11/05/23 11:00 Cleocin IV 11/05/23 11:39 PREOP ONE Lactated Ringer's 1,000 mls @ 15 mls/hr 11/05/23 09:45 11/05/23 09:59 IV 15 mls/hr .Q48H AAYUSH Administration PFSH Medical History Osteomyelitis of foot, left, acute Charcot's joint, left ankle and foot Wears glasses Diabetes Arthritis Former smoker Shortness of breath on exertion Foot abscess, left Non-pressure chronic ulcer of other part of left foot with fat layer exposed 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 Type 2 diabetes mellitus with diabetic polyneuropathy Bone fracture Neuropathy Diabetic neuropathy associated with diabetes mellitus due to underlying condition Elevated liver enzymes Fatty liver frozen shoulder,r arm High cholesterol HTN (hypertension) Diabetes type 2, controlled Seasonal allergies Home Medications ?Medication ?Instructions ?Recorded ?Last Taken ?Type blood sugar diagnostic (OneTouch #10 ea 02/11/19 Unknown History Verio test strips) blood-glucose meter (OneTouch #1 ea 02/11/19 Unknown History Verio Meter) cholecalciferol (vitamin D3) 1,250 50,000 unit PO QWEEK vitamin #12 03/08/19 05/06/23 Rx mcg (50,000 unit) capsule caps metoprolol succinate 50 mg 100 mg PO DAILY htn 03/08/19 11/05/23 08:00 History tablet,extended release 24 hr amlodipine 5 mg tablet 10 mg PO DAILY htn 02/07/22 05/07/23 History tamsulosin 0.4 mg capsule 0.4 mg PO Q24H md ordered 02/07/22 05/08/23 History biotin 100 mcg PO DAILY daily vitamin 12/10/22 05/06/23 History calcium citrate 500 mg PO DAILY daily vitamin 12/10/22 05/06/23 History nyoogfeb-zjdf-zds-folic acid 18 1 tab PO DAILY vitamin 12/10/22 05/06/23 History mg-0.4 mg tablet (One Daily Complete) vit B12 50 mcg-iodine 75 mcg-mag 1 cap PO DAILY vitamin 12/10/22 05/06/23 History 100 vo-wobd-efoksasz-herb 193 capsule zinc 50 mg tablet 50 mg PO DAILY vitamin 12/10/22 05/06/23 History metformin 1,000 mg tablet 1,000 mg PO BID diabetes 30 days 12/12/22 05/06/23 09:00 Rx #60 tabs ascorbic acid (vitamin C) 500 mg 500 mg PO DAILY daily vitamin 05/01/23 05/06/23 History tablet,extended release (C Complex) lisinopril 40 mg tablet 40 mg PO DAILY #30 tabs 05/12/23 Unknown Rx piperacillin-tazobactam 3.375 gram 3.375 g IV Q8H 37 days 05/12/23 Unknown Rx intravenous solution linezolid 600 mg tablet 600 mg PO BID #28 tabs 11/03/23 Unknown Rx tirzepatide 5 mg/0.5 mL 5 mg subcut QWEEK 11/03/23 10/25/23 History subcutaneous pen injector (Mounjaro) Allergy/AdvReac Type Severity Reaction Status Date / Time amoxicillin (From Augmentin) Allergy Severe Rash Verified 11/05/23 09:49 clavulanic acid (From Allergy Severe Rash Verified 11/05/23 09:49 Augmentin) Penicillins Allergy Unknown Hives Verified 11/05/23 09:49 Family History Mother Asthma Hypertension Father Hypertension Grandmother Cancer Unknown Arthritis Diabetes Other Diverticulitis Family history of high cholesterol Glaucoma Heart disease Kidney disease Renal failure Surgical History Hx of surgical procedure H/O bariatric surgery History of liver biopsy Social History household members: family housing: house Smoking Status: Former smoker alcohol intake: never substance use type: does not use Review of Systems (Anesthesia) ROS Narrative System reviewed and no additional complaints, except as documented.
[2023-11-05] MEDS: Clindamycin 900 MG/50 ML BAG 75 MG IV (11:04)
[2023-11-05] MEDS: Bupivacaine Mpf 0.5% 30 ML VIAL (11:26)
--- NOTE | 2023-11-05 11:55 | PCM.OPRPT ---
Problems Associated Problem List Diagnoses (1) Other acute osteomyelitis, right ankle and foot: (2) Other hammer toe(s) (acquired), right foot: (3) Primary osteoarthritis, right ankle and foot: Report of Operation Date of Procedure: 11/05/23 Pre-Operative Diagnosis: Osteomyelitis distal phalanx, right hallux in setting diabetic foot Post-Operative Diagnosis: Same Surgery/Procedure Performed:: Hallux interphalangeal joint arthroplasty with distal phalanx bone biopsy and culture right foot Description of Surgical Findings:: Patient had infected ingrown toenail which was removed. There is continued erythema edema and drainage from site for several weeks. MRI was ordered. Marrow edema noted to distal phalanx. Erythema edema failed to resolve with repeat avulsion of nail and continued oral antibiotics with Zyvox per culture and sensitivity. Decision was made for bone biopsy and culture. This was performed via interphalangeal joint arthroplasty. Surgeon: Isaac Lucero emergency department director: None Type of Anesthesia: MAC Special Medications: 10 cc half percent Marcaine plain Specimen's removed: Distal phalanx for microbiology and pathology Drains: None Estimated Blood Loss (mL): Minimal Description of Procedure: Patient was brought back the operating placed comfortably in supine position operating room table. Patient induced under MAC anesthesia. Well-padded right ankle tourniquet was applied. Right foot was scrubbed prepped and draped using typical aseptic fashion. Once cleared by anesthesia Right great toe was locally anesthetized with 10 cc of half percent Marcaine plain using standard hallux block technique. Tourniquet was inflated to 250 mmHg after the right lower extremity was elevated and exsanguinated. Using fluoroscopic imaging a incision was guided along the medial aspect of the right hallux at the level of the hallux interphalangeal joint this was made full-thickness through epidermis dermis and subcutaneous tissue down to level of bone 15 blade any bleeders identified cauterized. Using a sagittal saw the distal phalangeal base was removed from the surgical site allowing for decompression of the interphalangeal joint and bone biopsy and culture of the distal phalanx. This passed the back table in splint and sent to pathology and microbiology. Site was flushed with copious amounts normal sterile saline. Tourniquet was let down. Total tourniquet time was 26 minutes. Subcutaneous closure performed with buried interrupted 4-0 Vicryl. Skin closure performed with horizontal mattress 4-0 nylon. All sites were dressed with bacitracin Adaptic 4 x 4's Kerlix and Anderson bandage. Patient was transferred to PACU vital signs stable vascular status intact all digits for further monitoring prior to discharge. Patient tolerated procedure and anesthesia well in apparent satisfactory condition. Patient will continue oral antibiotics. No complications noted Bone quality was noted to be solid no evidence of demineralization secondary to an aggressive infection will await biopsy and culture results
--- NOTE | 2023-11-05 12:00 | PCM.POST.ANE ---
Anesthesia: Postop Eval I Current Vital Signs Temperature: 97.6 F Pulse Rate: 46 Blood Pressure: 112/63 Respiratory Rate: 16 Pulse Ox: 98 Oxygen Delivery Method: Nasal Cannula (2 L of oxygen) Assessment Airway patent: Yes Spontaneous unlabored respirations: Yes Mental status: Asleep nausea: No Vomiting: No Anesthesia Complication: No Fluid Hydration Crystalloid volume administer (ml): 500 Total IV fluid infused: 500 Progress Note Anesthesia document: Postop Eval 1 completed: Yes
--- NOTE | 2023-11-05 12:12 | PCM.POSTANE2 ---
Anesthesia Postop Eval I Sum Postop Eval Completion status Anesthesia document: Postop Eval 1 completed: Yes Anesthesia Postop Eval I Summary Anesthesia Postop Eval I Summary: Anesthesia Postop Eval I: Assessment Summary Airway patent Yes 11/05/23 12:02 Spontaneous unlabored Yes 11/05/23 12:02 respirations Mental status Asleep 11/05/23 12:02 nausea No 11/05/23 12:02 Vomiting No 11/05/23 12:02 Anesthesia Postop Eval I: Fluid Summary Crystalloid volume administer 500 11/05/23 12:02 (ml) Colloids volume administered ( ml) Blood Product volume administered (ml) Total IV fluid infused 500 11/05/23 12:02 Anesthesia Postop Eval I: Summary Notes Anesthesia Complication No 11/05/23 12:02 Anesthesia Complication Comment: Post-operative progress note Anesthesia: Postop Eval II Evaluation Mental status: Awake Pain Level: 0 nausea: No Vomiting: No
== END 2023-11-05 13:01 | disposition home or self-care (01) ==
LOC: SDC 09:30 → AC 09:31
PROVIDERS: PCP Family Medicine; Referring Provider Podiatrist; Visit Provider Podiatrist
PROC: (CPT 20240; principal; 2023-11-05 10:45)
DX: M86.171 Other acute osteomyelitis, right ankle and foot (principal); E11.69 Type 2 diabetes mellitus with other specified complication; M20.41 Other hammer toe(s) (acquired), right foot; M19.071 Primary osteoarthritis, right ankle and foot; I10 Essential (primary) hypertension; E78.5 Hyperlipidemia, unspecified; Z86.16 Personal history of COVID-19; Z87.891 Personal history of nicotine dependence; Z79.84 Long term (current) use of oral hypoglycemic drugs; Z79.899 Other long term (current) drug therapy
CPT/HCPCS: 20240; 01480; 73660; 76000; 82962; 87070; 87075; 87205; 88304; 88311; J7120; J2405